=== PATIENT | female | born 1940 | race Caucasian/White ===

== ENCOUNTER 2016-12-09 10:57 | Outpatient (CLI) | payer MEDICARE | END 2016-12-09 10:58 | disposition home or self-care (01) | DX: Z53.9 Procedure and treatment not carried out, unspecified reason (principal); M54.2 Cervicalgia ==

== ENCOUNTER 2016-12-10 15:18 | Outpatient (CLI) | payer MEDICARE, MEDICAID | END 2016-12-10 15:19 | disposition home or self-care (01) | DX: M43.12 Spondylolisthesis, cervical region (principal); M50.920 Unspecified cervical disc disorder, mid-cervical region, unspecified level ==

== ENCOUNTER 2017-03-01 15:50 | Inpatient (IN) | payer MEDICARE, MEDICAID ==
--- NOTE | 2017-03-01 17:25 | ED Physician Documentation ---
PD HPI GI BLEED - Stated complaint Stated Complaint: FEMALE - Chief complaint Chief Complaint: General - History obtained from History obtained from: Patient - History of Present Illness Timing - onset: Today Timing - duration: Days (1/2) Timing - details: Abrupt onset Associated symptoms: BRBPR (with some clots.), Maroon stool, Loss of appetite ( for a couple of days). No: Vomiting, Fever, Near syncope / syncope Contributing factors: Recent antibiotics (Doxycycline the past 5 days for foot infection), Aspirin use. No: Sick contact, Bad food, Travel, Anticoagulated Improved by: No: Eating Worsened by: No: Eating Similar symptoms before: Has not had sx before Recently seen: Clinic (6 days ago and started on Doxycycline BID for foot ulcer infection. She says that is improving some.) Review of Systems Constitutional: denies: Fever, Chills, Myalgias Nose: denies: Rhinorrhea / runny nose, Congestion Throat: denies: Sore throat Cardiac: denies: Chest pain / pressure, Palpitations, Calf pain Respiratory: denies: Dyspnea, Cough, Wheezing GI: reports: Nausea (mild), Bloody / black stool. denies: Abdominal Pain, Vomiting, Constipation : denies: Dysuria, Frequency Skin: reports: Lesions (left foot/ankle sore with some redness) Musculoskeletal: denies: Neck pain, Back pain Neurologic: denies: Generalized weakness, Focal weakness, Numbness, Near syncope PD PAST MEDICAL HISTORY - Past Medical History Cardiovascular: Hypertension, High cholesterol Respiratory: None Neuro: None Endocrine/Autoimmune: None GI: None : None HEENT: None Psych: Anxiety Musculoskeletal: Other Derm: Other - Past Surgical History Past Surgical History: Yes General: Appendectomy HEENT: Tonsil/Adenoidectomy - Present Medications Home Medications: Ambulatory Orders Medication Instructions Recorded Confirmed Atenolol 50 mg PO DAILY 08/22/13 03/01/17 Zolpidem [Ambien] 10 mg PO HS 08/22/13 03/01/17 Aspirin 81 mg PO DAILY 09/14/13 03/01/17 Cholecalciferol (Vitamin D3) 1,000 unit PO DAILY 09/14/13 03/01/17 [Vitamin D] Olmesartan Medoxomil [Benicar] 20 mg PO DAILY 09/14/13 03/01/17 Vitamin B Complex 1 each PO DAILY 09/14/13 03/01/17 cloNIDine [Catapres] 0.1 mg PO DAILY 09/14/13 03/01/17 Amlodipine Besylate 5 mg PO DAILY 08/18/15 03/01/17 Multivitamin [Multivitamins] 1 each PO DAILY 08/18/15 03/01/17 [place]-3/Dha/Epa/Fish Oil [Fish Oil 1,000 mg PO DAILY 03/17/16 03/01/17 Conc 1,000 mg Softgel] Doxycycline Hyclate 100 mg PO BID 03/01/17 03/01/17 - Allergies Allergies/Adverse Reactions: Allergies Allergy/AdvReac Type Severity Reaction Status Date / Time strawberry Allergy Unknown Verified 03/16/16 10:06 venom-honey bee Allergy swelling Verified 08/22/13 22:28 [bee venom (honey bee)] - Social History Does the pt smoke?: No Smoking Status: Never smoker Does the pt drink ETOH?: Yes Does the pt have substance abuse?: No - Family History Family history: reports: Non contributory - Immunizations Immunizations are current?: Yes PD ED PE NORMAL - Vitals Vital signs reviewed: Yes - General General: Alert and oriented X 3, No acute distress, Well developed/nourished - HEENT HEENT: Atraumatic, Pharynx benign - Neck Neck: Supple, no meningeal sign, No JVD - Cardiac Cardiac: RRR, No murmur - Respiratory Respiratory: Clear bilaterally - Abdomen Abdomen: Normal bowel sounds, Soft, Non tender, Non distended, No organomegaly - Female Female : Deferred - Rectal Rectal: Deferred (she had breana dark blood with clots per rectum into toilet, obviating need for digital exam. External rectum without hemorrhoids. ) - Back Back: No CVA TTP - Derm Derm: Normal color, Warm and dry, Other (left ankle with superficial ulcerations with mild redness. ) - Extremities Extremities: No edema, No calf tenderness / cord - Neuro Neuro: Alert and oriented X 3, No motor deficit, Normal speech Results - Vitals Vitals: Vital Signs - 24 hr 03/01/17 03/01/17 15:57 19:18 Temperature 36.0 C L Heart Rate 60 106 H Respiratory 18 18 Rate Blood Pressure 198/91 H 180/79 H O2 Saturation 96 100 Oxygen O2 Source Room air - Labs Labs: Microbiology 03/01/17 18:09 Clostridium difficile (PCR) - Final Stool 03/01/17 18:09 Campylobacter Antigen Assay - Final Stool Laboratory Tests 03/01/17 03/01/17 03/01/17 18:32 18:32 18:32 WBC 7.4 RBC 4.51 Hgb 13.8 Hct 40.6 MCV 90.0 MCH 30.7 MCHC 34.1 RDW 13.1 Plt Count 216 MPV 8.5 Neut # 5.0 Lymph # 1.6 [place] # 0.6 Eos # 0.1 Baso # 0.1 Absolute Nucleated RBC 0.00 Nucleated RBCs 0.0 Sodium 138 Potassium 3.5 Chloride 103 Carbon Dioxide 27 Anion Gap 8.0 BUN 15 Creatinine 0.6 Estimated GFR (MDRD) 97 Glucose 92 Calcium 9.4 Magnesium 1.9 Total Bilirubin 0.3 AST 14 ALT 12 Alkaline Phosphatase 58 Total Protein 7.7 Albumin 3.5 Globulin 4.2 Albumin/Globulin Ratio 0.8 L Lipase 28 Blood Type A POSITIVE Antibody Screen NEGATIVE PD MEDICAL DECISION MAKING - ED course Complexity details: reviewed results, re-evaluated patient (2-3 movements here in ED with about 50-100 ml dark bloody watery stool with some clots. Breana blood. I do not feel she is able to go home with this level of output even though her vitals and blood count are good. ), considered differential, d/w patient, d/w information services consultant (Dr. Feliciano, Surgery, and Dr. Moeller, Hospitalist) Departure - Departure Disposition: 66 [facility] DC/Xfer Clinical Impression: GI bleeding Qualifiers: GI bleed type/associated pathology: unspecified gastrointestinal hemorrhage type Qualified Code(s): K92.2 - Gastrointestinal hemorrhage, unspecified Hypertension Qualifiers: Hypertension type: unspecified secondary hypertension Qualified Code(s): I15.9 - Secondary hypertension, unspecified; I15 - Secondary hypertension Condition: Stable Record reviewed to determine appropriate education?: Yes Discharge Date/Time: 03/01/17 21:10
[2017-03-01] MEDS ORDERED: FAMOTIDINE 20 MG/50 ML 50 ML IV ONE ×2 (17:52→18:47)
[2017-03-01] MEDS ORDERED: SODIUM CHLORIDE 0.9% 1,000 ML IV ONE (17:52)
[2017-03-01 18:43] LABS: BASOPHILS # (AUTO) 0.1 10^3/uL (0.0-0.1); BASOPHILS % (AUTO) 0.8 %; EOSINOPHILS # (AUTO) 0.1 10^3/uL (0.0-0.7); EOSINOPHILS % (AUTO) 1.8 %; HCT - HEMATOCRIT 40.6 % (37.0-47.0); HGB - HEMOGLOBIN 13.8 g/dL (12.0-16.0); LYMPHOCYTES # (AUTO) 1.6 10^3/uL (1.5-3.5); LYMPHOCYTES % (AUTO) 21.7 %; MEAN CORPUSCULAR HEMOGLOBIN 30.7 pg (27.0-31.0); MEAN CORPUSCULAR HGB CONC 34.1 g/dL (32.0-36.0); MEAN PLATELET VOLUME 8.5 fL (7.9-10.8); MONOCYTES # (AUTO) 0.6 10^3/uL (0.0-1.0); MONOCYTES % (AUTO) 8.4 %; NEUTROPHILS % (AUTO) 67.3 %; RED BLOOD COUNT 4.51 10^6/uL (4.20-5.40); RED CELL DISTRIBUTION WIDTH 13.1 % (12.0-15.0); UNCORRECTED WHITE BLOOD COUNT 7.4 x10^3/uL; WHITE BLOOD COUNT 7.4 x10^3/uL (4.8-10.8)
[2017-03-01 18:55] LABS: ALBUMIN/GLOBULIN RATIO 0.8 (1.0-2.2); BILIRUBIN,TOTAL 0.3 mg/dL (0.2-1.0); CALCIUM 9.4 mg/dL (8.5-10.3); CREATININE 0.6 mg/dL (0.4-1.0); MAGNESIUM 1.9 mg/dL (1.7-2.8); POTASSIUM 3.5 mmol/L (3.5-5.0); TOTAL PROTEIN 7.7 g/dL (6.7-8.2)
[2017-03-01] MEDS ORDERED: oxyCODONE 5 MG TABLET PO PRN ×2 (19:50)
[2017-03-01] MEDS ORDERED: PROCHLORPERAZINE 10 MG/2 ML VIAL IVP PRN (19:50)
[2017-03-01] MEDS ORDERED: ACETAMINOPHEN 325 MG TABLET PO PRN (19:50)
[2017-03-01] MEDS ORDERED: ONDANSETRON 4 MG/2 ML VIAL IVP PRN (19:50)
[2017-03-01] MEDS ORDERED: SODIUM CHLORIDE FLUSH 0.9% 10 ML SYRINGE IVP PRN (19:50)
[2017-03-01] MEDS ORDERED: amLODIPine 5 MG TABLET PO SCH (21:00)
[2017-03-01] MEDS ORDERED: OLMESARTAN MEDOXOMIL 20 MG PO SCH (21:00)
--- NOTE | 2017-03-01 21:02 | HISTORY & PHYSICAL EXAMINATION ---
Chief Complaint - Chief Complaint Chief Complaint: bloody stool History of Present Illness - Admitted From Admitted From:: emergency department - History Obtained From Records Reviewed: yes History obtained from: patient Exam Limitations: none - History of Present Illness HPI Comment/Other: Patient is a 76-year-old female with a past medical history significant for hypertension, charcots joint with history of chronic foot ulcers and hypercholesterolemia who presented to the emergency department with a chief complaint of bloody stool. The patient states that she was in her normal state of health until last night when she states that she had to go to the bathroom and states that she had loose stools that was maroon to dark in color with blood clots. The patient states that she's never had any previous GI bleeds. She states that she has not recently been taking any NSAIDs, smoking or drinking excessive alcohol. She denies any fevers or chills. She states that after the initial bloody bowel movement she continued to have loose stools that appeared bloody with clots every 30 minutes to one hour until she came into the emergency department this afternoon. She denies any abdominal pain. She does admit to taking a baby aspirin daily and she states that she started doxycycline about 5 days ago for a foot ulcer. She does admit to being under a lot of stress she states that she is taking care of her ill who has Parkinson's. She states that her daughter and grandchildren just recently moved into their house as her daughter is having marital problems. She states that she 's been having tension in her neck off and on for the last month but has become significantly worse over the last few days. He denies being on any blood thinners. She denies any nausea or vomiting. She denies any recent sick contacts. On presentation to the emergency department the patient was afebrile she was quite hypertensive and was not tachycardic. After arriving in the emergency department the patient had 6-7 bowel movements which were all bloody with dark maroon-appearing stool and clots. This was seen by the emergency room physician who confirmed that it looked to be maroon to bright red with clots. Given that this was a painless GI bleed the most likely diagnosis is diverticular bleed. The patient's hemoglobin was found to be stable at 13.8 patient was not hypotensive but did become slightly tachycardic while in the emergency department. Given the continuous bleeding in the emergency department it was felt best that the patient be placed in observation and have serial hemoglobin checks while being monitored closely. The patient's stool was sent for C. difficile and Campylobacter testing both tests were negative. No CT scan was performed. Review of Systems - Constitutional Constitutional: denies: Fatigue, Fever, Chills, Malaise, Weakness, Poor appetite , Diaphoresis, Night sweats, Weight gain, Weight loss - Eyes Eyes: denies: Pain, Irritation, Amaurosis, Blurred vision, Spots in vision, Field loss, Vision loss, Dipolpia, Corrective lenses, Other - Ears, Nose & Throat Ears, Nose & Throat: denies: Ear pain, Hearing loss, Hearing aids, Tinnitus, Vertigo, Nasal pain, Nasal discharge, Nosebleeds, Nasal obstruction, Nasal congestion, Postnasal drainage, Dentures, Sore throat, Hoarseness, Mouth lesions , Bleeding gums, Dental decay, Dental pain, Other - Cardiovascular Cariovascular: denies: Irregular heart rate, Palpitations, Chest pain, Edema, Lightheadedness, Syncope, Exertional dyspnea, Decr. exercise tolerance, Orthopnea, Other - Respiratory Respiratory: denies: Cough, Sputum production, Wheezing, Snoring, Hemoptysis, Orthopnea, SOB at rest, SOB with exertion, Apnea, Stridor, Pleuritic pain, Other - Gastrointestinal Gastrointestinal: reports: Diarrhea, Rectal bleeding, Bloody stools, Other ( Pressure in lower abdomen). denies: Abdominal pain, Abdominal distention, Constipation, Nausea, Vomiting, Jalen blood emesis, Coffee grounds emesis, Reflux/heartburn, Bloating, Poor appetite - Genitourinary Genitourinary: denies: Dysuria, Frequency, Urgency, Hematuria, Incontinence, Flank pain, Nocturia, Urethral discharge, Sexual dysfunction, Other - Musculoskeletal Musculoskeletal: reports: Stiffness (neck), Limited range of motion (neck), Joint swelling (Left foot) - Integumentary Integumentary: denies: Rash, Pruritis, Lesions, Dryness, Lumps, Acne, Pigment changes, Nail changes, Hair changes, Other - Neurological Neurological: denies: General weakness, Focal weakness, Headache, Dizziness, Numbness, Memory problems, Pre-existing deficit, Abnormal gait, Seizures, Incoordination, Slurred speech, Other - Psychiatric Psychiatric: reports: Anxiety, Other (Stress). denies: Depression, Suicidal, Delusions, Hallucinations - Endocrine Endocrine: denies: Polyuria, Polydypsia, Polyphagia, Intolerance to cold, Intolerance to heat, Other - Hematologic/Lymphatic Hematologic/Lymphatic: reports: Blood clots (With stool). 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 Mom had osteoporosis. Living arrangement: At home Living Situation: With spouse/s.o., With family (Daughter and grandkids) Social History Notes: Patient lives in [place] with . Recently daughter and grandkids have moved in due to daughter going through marital issues. Patient under a lot of stress due to taking care of with parkinsons and family problems. - Substance History Use: Uses substance without health or social issues: Alcohol (1-2 glasses of wine a week with dinner) Abuse: Recurrent use of substance despite neg consequences: NONE Dependence: Experiences withdrawal or developed tolerances: NONE - POLST Patient has POLST: No POLST Status: Full Code Meds/Allgy - Home Medications Home Medications: Ambulatory Orders Medication Instructions Recorded Confirmed Atenolol 50 mg PO DAILY 08/22/13 03/01/17 Zolpidem [Ambien] 10 mg PO HS 08/22/13 03/01/17 Aspirin 81 mg PO DAILY 09/14/13 03/01/17 Cholecalciferol (Vitamin D3) 1,000 unit PO DAILY 09/14/13 03/01/17 [Vitamin D] Olmesartan Medoxomil [Benicar] 20 mg PO DAILY 09/14/13 03/01/17 Vitamin B Complex 1 each PO DAILY 09/14/13 03/01/17 cloNIDine [Catapres] 0.1 mg PO DAILY 09/14/13 03/01/17 Amlodipine Besylate 5 mg PO DAILY 08/18/15 03/01/17 Multivitamin [Multivitamins] 1 each PO DAILY 08/18/15 03/01/17 [place]-3/Dha/Epa/Fish Oil [Fish Oil 1,000 mg PO DAILY 03/17/16 03/01/17 Conc 1,000 mg Softgel] Doxycycline Hyclate 100 mg PO BID 03/01/17 03/01/17 - Allergies Allergies/Adverse Reactions: Allergies Allergy/AdvReac Type Severity Reaction Status Date / Time strawberry Allergy Unknown Verified 03/16/16 10:06 venom-honey bee Allergy swelling Verified 08/22/13 22:28 [bee venom (honey bee)] Exam - Vital Signs Reviewed Vital Signs: Yes Vital Signs: Vital Signs x48h Temp Pulse Resp BP Pulse Ox 03/01/17 19:18 106 H 18 180/79 H 100 03/01/17 15:57 36.0 C L 60 18 198/91 H 96 - Physical Exam General Appearance: positive: No acute distress, Alert, Other (anxious) Eyes Bilateral: positive: Normal inspection, PERRL, EOMI, No lid inflammation, Conjunctivae nml, No scleral icterus ENT: positive: ENT inspection nml, Pharynx nml, Dry mucous membranes. negative : Purulent nasal drainage, Pharyngeal erythema, Oral lesions Neck: positive: Nml inspection, Thyroid nml, No JVD, Trachea midline, Other ( Tapezius muscle with spasms bilaterally and decreased ROM at the neck). negative: Thyromegaly, Lymphadenopathy (R), Lymphadenopathy (L) Respiratory: positive: Chest non-tender, No respiratory distress, Breath sounds nml. negative: Wheezes, Rales, Rhonchi Cardiovascular: positive: Regular rate & rhythm, No murmur, No gallop Peripheral Pulses: positive: 2+ Abdomen: positive: Non-tender, No organomegaly, Nml bowel sounds, No distention. negative: Guarding, Rebound, Hepatomegaly Rectal: positive: Stool - heme POS, Bloody stool Back: positive: Nml inspection. negative: CVA tenderness (R), CVA tenderness (L ) Skin: positive: Color nml, Warm, Dry, Other (Left foot ulcer on plantar aspect - looks to be healing well, no drainage but does have smell). negative: Cyanosis, Pallor Extremities: positive: Non-tender, Full ROM, Nml appearance, Pedal edema, Joint swelling (Left lateral ankle and foot) Neurologic/Psychiatric: positive: Oriented x3, CN's nml (2-12), Motor nml, Sensation nml, Mood/affect nml Conclusion/Plan - Problem List (1) GI bleeding Conclusion/Plan: Patient presented with bloody stools Patient takes baby aspirin at home but no NSAIDs, no alcohol, no tobacco use Stool appears bloody with clots C. difficile PCR negative, stool negative for Campylobacter No fevers no chills No abdominal pain The patient under a lot of stress No history of GI bleed The patient has never had colonoscopy or EGD The patient likely has a lower GI bleed likely to be diverticular bleed, less likely to be a brisk upper GI bleed however we cannot completely rule this out. Plan: Place 2 large-bore IVs Type and screen PRBCs Monitor hemoglobin every 6 hours Monitor vital signs and place on telemetry Transfuse if patient becomes hemodynamically unstable, is actively bleeding with acutely worsening hemoglobin or if hemoglobin is less than 7 Protonix IV twice a day IV fluids Hold aspirin and avoid NSAIDs Consult surgery for EGD and colonoscopy will do tomorrow if patient continues to bleed or next day if bleeding decreases Consider CT if patient begins to have pain. NPO Qualifiers: GI bleed type/associated pathology: unspecified gastrointestinal hemorrhage type Qualified Code(s): K92.2 - Gastrointestinal hemorrhage, unspecified (2) Foot ulcer, left Conclusion/Plan: Patient being treated with doxycycline by mouth as outpatient completed 5 of 7 days of treatment Patient has been having loose stools and not feeling well since starting the antibiotic Doxycycline can cause esophagitis and gastritis, as well as diarrhea Will hold doxycycline and start patient on under myosin while she is hospitalized. The patient's ulcer looks clean and appears to be healing well (3) Hypertension Conclusion/Plan: Blood pressure elevated on presentation The patient receives amlodipine and benicar at night Will give the patient her night doses of antihypertensives Will monitor patient's blood pressure closely she is bleeding we will hold and hypertensives if patient becomes hypotensive. - Lab Results Lab results reviewed: Yes Fish Bones: 03/01/17 18:32 03/01/17 18:32 - Diagnostic Imaging Results Diagnostic Imaging Results: positive: Final report reviewed - EKG Results EKG Interpreted Independently: Yes Issues/Core Measures - Anticipated LOS Anticipated Stay Length: Less than 2 midnights - DVT/VTE - Prophylaxis VTE/DVT Device ordered at admit?: Yes Not Ordered - Medical Reason: Not indicated (the patient bleeding)
[2017-03-01] MEDS: SODIUM CHLORIDE 0.9% 1,000 ML IV SCH ×2 (21:59→23:38)
[2017-03-01] MEDS: LOSARTAN 50 MG TABLET PO SCH (21:59)
[2017-03-01] MEDS: ALPRAZolam 0.25 MG TABLET PO PRN (21:59)
[2017-03-01] MEDS: PANTOPRAZOLE 40 MG VIAL IVP SCH (21:59)
[2017-03-01] MEDS: SODIUM CHLORIDE FLUSH 0.9% 10 ML SYRINGE IVP SCH (21:59)
[2017-03-01 22:44] LABS: BASOPHILS % (AUTO) 0.6 %; EOSINOPHILS # (AUTO) 0.2 10^3/uL (0.0-0.7); EOSINOPHILS % (AUTO) 2.2 %; HCT - HEMATOCRIT 37.8 % (37.0-47.0); HGB - HEMOGLOBIN 12.9 g/dL (12.0-16.0); LYMPHOCYTES % (AUTO) 24.4 %; MEAN CORPUSCULAR HEMOGLOBIN 30.8 pg (27.0-31.0); MEAN CORPUSCULAR HGB CONC 34.2 g/dL (32.0-36.0); MEAN CORPUSCULAR VOLUME 90.1 fL (81.0-99.0); MONOCYTES # (AUTO) 0.6 10^3/uL (0.0-1.0); MONOCYTES % (AUTO) 8.1 %; NEUTROPHILS # (AUTO) 5.2 10^3/uL (1.5-6.6); NEUTROPHILS % (AUTO) 64.7 %; NUCLEATED RED BLOOD CELLS AUTO 0.1 /100WBC; RED CELL DISTRIBUTION WIDTH 12.9 % (12.0-15.0)
[2017-03-01] MEDS: CLINDAMYCIN 150 MG CAPSULE PO SCH (23:43)
[2017-03-02] MEDS: SODIUM CHLORIDE FLUSH 0.9% 10 ML SYRINGE IVP SCH ×3 (03:51→22:09)
[2017-03-02] MEDS: CLINDAMYCIN 150 MG CAPSULE PO SCH ×4 (06:02→23:48)
[2017-03-02 06:27] LABS: BASOPHILS # (AUTO) 0.1 10^3/uL (0.0-0.1); BASOPHILS % (AUTO) 0.9 %; EOSINOPHILS # (AUTO) 0.2 10^3/uL (0.0-0.7); EOSINOPHILS % (AUTO) 2.6 %; HCT - HEMATOCRIT 36.3 % (37.0-47.0); HGB - HEMOGLOBIN 12.4 g/dL (12.0-16.0); LYMPHOCYTES # (AUTO) 1.6 10^3/uL (1.5-3.5); LYMPHOCYTES % (AUTO) 26.4 %; MEAN CORPUSCULAR HEMOGLOBIN 30.6 pg (27.0-31.0); MEAN CORPUSCULAR HGB CONC 34.3 g/dL (32.0-36.0); MEAN CORPUSCULAR VOLUME 89.2 fL (81.0-99.0); MEAN PLATELET VOLUME 8.8 fL (7.9-10.8); MONOCYTES # (AUTO) 0.5 10^3/uL (0.0-1.0); MONOCYTES % (AUTO) 9.1 %; NEUTROPHILS # (AUTO) 3.6 10^3/uL (1.5-6.6); RED BLOOD COUNT 4.06 10^6/uL (4.20-5.40); RED CELL DISTRIBUTION WIDTH 12.7 % (12.0-15.0)
[2017-03-02 06:38] LABS: INR 1.2 (0.8-1.2); PT - PROTHROMBIN TIME 13.1 secs (9.9-12.6)
[2017-03-02 06:54] LABS: ALBUMIN/GLOBULIN RATIO 0.8 (1.0-2.2); BILIRUBIN,TOTAL 0.7 mg/dL (0.2-1.0); CALCIUM 8.6 mg/dL (8.5-10.3); CREATININE 0.5 mg/dL (0.4-1.0); POTASSIUM 3.3 mmol/L (3.5-5.0); TOTAL PROTEIN 6.4 g/dL (6.7-8.2)
[2017-03-02] MEDS ORDERED: cloNIDine 0.1 MG TABLET PO SCH ×2 (07:00→09:00)
[2017-03-02 07:42] LABS: AMYLASE 33 U/L (28-100)
[2017-03-02] MEDS: ATENOLOL 25 MG TABLET PO SCH (08:10)
[2017-03-02] MEDS: MULTIVITAMIN TABLET PO SCH (08:10)
[2017-03-02] MEDS: PANTOPRAZOLE 40 MG VIAL IVP SCH ×2 (08:10→22:09)
[2017-03-02] MEDS: LOSARTAN 50 MG TABLET PO SCH (08:10)
[2017-03-02] MEDS: POTASSIUM CHLORIDE 20 MEQ TABLET PO SCH (08:10)
[2017-03-02] MEDS: CHOLECALCIFEROL 1,000 UNIT TABLET PO SCH (08:10)
[2017-03-02] MEDS: POLYETHYLENE GLYCOL 3350 17 GM PACKET PO SCH (08:11)
[2017-03-02] MEDS ORDERED: LOSARTAN 50 MG TABLET PO SCH (09:00)
[2017-03-02] MEDS ORDERED: NON FORMULARY MED (Multivitamin [Multivitamins] 1 EACH) PO SCH (09:00)
[2017-03-02] MEDS ORDERED: NON FORMULARY MED (Atenolol [Atenolol] 50 MG) PO SCH (09:00)
[2017-03-02] MEDS ORDERED: OLMESARTAN MEDOXOMIL 20 MG PO SCH (09:00)
[2017-03-02] MEDS: SODIUM CHLORIDE 0.9% 1,000 ML IV SCH ×2 (09:20→22:08)
--- NOTE | 2017-03-02 09:55 | PROVIDER PROGRESS NOTE ---
Assessment/Plan - Problem List (1) Acute lower GI bleeding Assessment/Plan: ongoing. patient is going for colonoscopy today. she is on colon prep for scope later today. She has history of hemorrhoids and this could be the cause of the bleeding. hemorrhoids noted on examination but internal need to be accessed. continue to monitor H/H and type and screen completed. hemoglobin stable at this time (2) Hypokalemia due to loss of potassium Assessment/Plan: acute. replace potassium with oral supplement. repeat CMP in morning lab draw (3) Foot ulcer, left Qualifiers: Non-pressure ulcer stage: unspecified non-pressure ulcer stage Qualified Code(s): L97.529 - Non-pressure chronic ulcer of other part of left foot with unspecified severity Assessment/Plan: stable with Charcot of left foot. stable. continue to provide elevation of extremity and monitor for changes in skin integrity.l continue on clindamycin as prescribed. (4) Hypertension Qualifiers: Hypertension type: unspecified secondary hypertension Qualified Code(s): I15.9 - Secondary hypertension, unspecified; I15 - Secondary hypertension Assessment/Plan: stable. continue on home dosage of blood pressure medications. - Current Meds Current Meds: Current Medications Generic Name Dose Route Start Last Admin Trade Name Freq PRN Reason Stop Dose Admin Alprazolam 0.25 mg 03/01/17 21:44 03/01/17 21:59 Xanax PO 0.25 mg Q6HR PRN Administration Anxiety Atenolol 50 mg 03/02/17 09:00 03/02/17 08:10 Tenormin PO 50 mg DAILY LENKA Administration Cholecalciferol 1,000 unit 03/02/17 09:00 03/02/17 08:10 Vitamin D3 PO 1,000 unit DAILY LENKA Administration Clindamycin HCl 300 mg 03/02/17 00:00 03/02/17 06:02 Cleocin PO 300 mg Q6HR LENKA Administration Sodium Chloride 1,000 mls @ 100 mls/hr 03/01/17 20:00 03/02/17 09:20 Normal Saline 0.9% IV 100 mls/hr .Q10H LENKA Administration Losartan Potassium 50 mg 03/01/17 21:50 03/02/17 08:10 Cozaar PO 50 mg DAILY LENKA Administration Multivitamins 1 tab 03/02/17 08:00 03/02/17 08:10 Theragran PO 1 tab DAILYWM LENKA Administration Pantoprazole Sodium 40 mg 03/01/17 21:00 03/02/17 08:10 Protonix IVP 40 mg BID LENKA Administration Polyethylene Glycol 17 gm 03/02/17 09:00 03/02/17 08:11 Miralax PO Not Given DAILY LENKA Potassium Chloride 20 meq 03/02/17 08:00 03/02/17 08:10 K-Dur PO 20 meq DAILYWM LENKA Administration Sodium Chloride 10 ml 03/01/17 22:00 03/02/17 03:51 Normal Saline Flush 0.9% IVP Not Given Q8HR LENKA - Lab Result Lab results reviewed: Yes Fish Bone Diagrams: 03/02/17 11:12 03/02/17 05:52 Other Lab Results: Abnormal Lab Results 03/01/17 03/02/17 03/02/17 18:32 05:45 05:52 RBC 4.06 10^6/uL L 10^6/uL (4.20-5.40) Hct 36.3 % L % (37.0-47.0) PT Potassium 3.3 mmol/L L mmol/L (3.5-5.0) Total Protein 6.4 g/dL L g/dL (6.7-8.2) Albumin 2.8 g/dL L g/dL (3.2-5.5) Albumin/Globulin Ratio 0.8 L 0.8 L (1.0-2.2) (1.0-2.2) 03/02/17 06:07 RBC Hct PT 13.1 secs H secs (9.9-12.6) Potassium Total Protein Albumin Albumin/Globulin Ratio - EKG Results EKG Interpreted Independently: No - Diagnostic Imaging Results Diagnostic Imaging Results Comments: Pending colonoscopy this evening - Additional Planning Condition/Complexity: Stable My Orders: My Active Orders 03/02/17 08:00 Potassium Chloride [K-Dur] 20 meq PO DAILYWM 03/02/17 09:24 EKG - Electrocardiogram [RC] Routine 03/02/17 10:00 Sodium/Potassium/Mag Sulfates [Suprep Bowel Prep Kit] 177 ml PO Q5H 03/03/17 05:00 MAGNESIUM [CHEM] DAILYLAB Consult/Specialty: OT, PT, Surgery Plan Discussed with:: Patient Time Spent: 31-60 minutes Subjective - Subjective Patient Reports: Resting Comfortably, No Complaints Nursing Reports: No Complaints (no new bleeding this morning.) Objective Vital Signs: Vital Signs - 24 hr 03/01/17 03/01/17 03/01/17 20:58 21:27 23:34 Temperature 36.7 C 36.5 C 36.6 C Heart Rate 76 Heart Rate [ 63 60 Brachial] Respiratory 18 18 17 Rate Blood Pressure 218/88 H Blood Pressure 199/106 H 162/79 H [Left Brachial artery] O2 Saturation 98 99 98 03/02/17 03/02/17 03:55 09:18 Temperature 36.7 C 36.6 C Heart Rate Heart Rate [ 63 60 Brachial] Respiratory 18 18 Rate Blood Pressure Blood Pressure 169/79 H 125/72 [Left Brachial artery] O2 Saturation 96 97 Oxygen O2 Source Room air I&O (Last 24 Hrs): Intake and Output Totals x24h 02/28/17 03/01/17 03/02/17 23:59 23:59 23:59 Intake Total 600 1132 Output Total 250 800 Balance 350 332 General: Alert, Oriented x3, Cooperative HEENT: PERRLA Neck: Supple, No JVD Lymphatic: no adenopathy Neuro: Alert, CN 2-12 Grossly Intact, Oriented Times 3 Cardiovascular: Regular rate, Normal S1, Normal S2 Respiratory: Chest non-tender, No respiratory distress, Breath sounds nml Abdomen: Normal bowel sounds, Soft, No tenderness, No masses Genitourinary: No Discharge, No Tenderness Rectal: Stool - Heme POS Extremities: No clubbing, No cyanosis, No edema, Normal pulses, No tenderness/ swelling Skin: No rashes, No breakdown, No significant lesion - Results Results: Laboratory Results WBC 6.0 x10^3/uL (4.8-10.8) 03/02/17 05:45 RBC 4.06 10^6/uL (4.20-5.40) L 03/02/17 05:45 Hgb 12.4 g/dL (12.0-16.0) 03/02/17 05:45 Hct 36.3 % (37.0-47.0) L 03/02/17 05:45 MCV 89.2 fL (81.0-99.0) 03/02/17 05:45 MCH 30.6 pg (27.0-31.0) 03/02/17 05:45 MCHC 34.3 g/dL (32.0-36.0) 03/02/17 05:45 RDW 12.7 % (12.0-15.0) 03/02/17 05:45 Plt Count 183 10^3/uL (130-450) 03/02/17 05:45 MPV 8.8 fL (7.9-10.8) 03/02/17 05:45 Neut # 3.6 10^3/uL (1.5-6.6) 03/02/17 05:45 Lymph # 1.6 10^3/uL (1.5-3.5) 03/02/17 05:45 [place] # 0.5 10^3/uL (0.0-1.0) 03/02/17 05:45 Eos # 0.2 10^3/uL (0.0-0.7) 03/02/17 05:45 Baso # 0.1 10^3/uL (0.0-0.1) 03/02/17 05:45 Absolute Nucleated RBC 0.00 x10^3/uL 03/02/17 05:45 Nucleated RBCs 0.0 /100WBC 03/02/17 05:45 PT 13.1 secs (9.9-12.6) H 03/02/17 06:07 INR 1.2 (0.8-1.2) 03/02/17 06:07 Sodium 138 mmol/L (135-145) 03/02/17 05:52 Potassium 3.3 mmol/L (3.5-5.0) L 03/02/17 05:52 Chloride 108 mmol/L (101-111) 03/02/17 05:52 Carbon Dioxide 24 mmol/L (21-32) 03/02/17 05:52 Anion Gap 6.0 (6-13) 03/02/17 05:52 BUN 10 mg/dL (6-20) 03/02/17 05:52 Creatinine 0.5 mg/dL (0.4-1.0) 03/02/17 05:52 Estimated GFR (MDRD) 119 (>89) 03/02/17 05:52 Glucose 100 mg/dL (70-100) 03/02/17 05:52 Calcium 8.6 mg/dL (8.5-10.3) 03/02/17 05:52 Magnesium 1.8 mg/dL (1.7-2.8) 03/02/17 06:07 Total Bilirubin 0.7 mg/dL (0.2-1.0) 03/02/17 05:52 AST 13 IU/L (10-42) 03/02/17 05:52 ALT 11 IU/L (10-60) 03/02/17 05:52 Alkaline Phosphatase 46 IU/L (42-121) 03/02/17 05:52 C-Reactive Protein < 1.0 mg/dL (0-1.0) 03/02/17 06:07 Total Protein 6.4 g/dL (6.7-8.2) L 03/02/17 05:52 Albumin 2.8 g/dL (3.2-5.5) L 03/02/17 05:52 Globulin 3.6 g/dL (2.1-4.2) 03/02/17 05:52 Albumin/Globulin Ratio 0.8 (1.0-2.2) L 03/02/17 05:52 Amylase 33 U/L (28-100) 03/02/17 06:07 Lipase 28 U/L (22-51) 03/01/17 18:32 Blood Type A POSITIVE 03/01/17 18:32 Antibody Screen NEGATIVE 03/01/17 18:32 - Procedures Procedures: Patient was started on bowel prep for colonoscopy this evening with Dr Givens. She has had no breana red blood this morning.
[2017-03-02] MEDS: SODIUM/POTASSIUM/MAG SULFATES 354 ML PREP KIT PO SCH ×2 (09:58→14:33)
--- NOTE | 2017-03-02 10:01 | PROVIDER PROGRESS NOTE ---
Assessment/Plan - Problem List (1) GI bleeding Qualifiers: GI bleed type/associated pathology: unspecified gastrointestinal hemorrhage type Qualified Code(s): K92.2 - Gastrointestinal hemorrhage, unspecified Assessment/Plan: 76 yo female with GI bleed plan for colonoscopy and EGD today.Colon prep begun - Current Meds Current Meds: Current Medications Generic Name Dose Route Start Last Admin Trade Name Freq PRN Reason Stop Dose Admin Alprazolam 0.25 mg 03/01/17 21:44 03/01/17 21:59 Xanax PO 0.25 mg Q6HR PRN Administration Anxiety Atenolol 50 mg 03/02/17 09:00 03/02/17 08:10 Tenormin PO 50 mg DAILY LENKA Administration Cholecalciferol 1,000 unit 03/02/17 09:00 03/02/17 08:10 Vitamin D3 PO 1,000 unit DAILY LENKA Administration Clindamycin HCl 300 mg 03/02/17 00:00 03/02/17 06:02 Cleocin PO 300 mg Q6HR LENKA Administration Sodium Chloride 1,000 mls @ 100 mls/hr 03/01/17 20:00 03/02/17 09:20 Normal Saline 0.9% IV 100 mls/hr .Q10H LENKA Administration Losartan Potassium 50 mg 03/01/17 21:50 03/02/17 08:10 Cozaar PO 50 mg DAILY LENKA Administration Multivitamins 1 tab 03/02/17 08:00 03/02/17 08:10 Theragran PO 1 tab DAILYWM LENKA Administration Pantoprazole Sodium 40 mg 03/01/17 21:00 03/02/17 08:10 Protonix IVP 40 mg BID LENKA Administration Polyethylene Glycol 17 gm 03/02/17 09:00 03/02/17 08:11 Miralax PO Not Given DAILY LENKA Potassium Chloride 20 meq 03/02/17 08:00 03/02/17 08:10 K-Dur PO 20 meq DAILYWM LENKA Administration Sodium Chloride 10 ml 03/01/17 22:00 03/02/17 03:51 Normal Saline Flush 0.9% IVP Not Given Q8HR LNEKA Sodium Sulfate/Potass Sulf/Mag Sulf 177 ml 03/02/17 10:00 03/02/17 09:58 Suprep Bowel Prep Kit PO 03/02/17 15:01 177 ml Q5H LENKA Administration - Lab Result Fish Bone Diagrams: 03/02/17 05:45 03/02/17 05:52 Subjective - Subjective Patient Reports: Other (Contiues to pass clots in stool) Nursing Reports: No Complaints Objective Vital Signs: Vital Signs - 24 hr 03/01/17 03/01/17 03/01/17 20:58 21:27 23:34 Temperature 36.7 C 36.5 C 36.6 C Heart Rate 76 Heart Rate [ 63 60 Brachial] Respiratory 18 18 17 Rate Blood Pressure 218/88 H Blood Pressure 199/106 H 162/79 H [Left Brachial artery] O2 Saturation 98 99 98 03/02/17 03/02/17 03:55 09:18 Temperature 36.7 C 36.6 C Heart Rate Heart Rate [ 63 60 Brachial] Respiratory 18 18 Rate Blood Pressure Blood Pressure 169/79 H 125/72 [Left Brachial artery] O2 Saturation 96 97 Oxygen O2 Source Room air I&O (Last 24 Hrs): Intake and Output Totals x24h 02/28/17 03/01/17 03/02/17 23:59 23:59 23:59 Intake Total 600 1132 Output Total 250 800 Balance 350 332 General: Oriented x3 Neck: No JVD Cardiovascular: Regular rate Respiratory: Chest non-tender Abdomen: Normal bowel sounds, Soft, No tenderness - Results Results: Laboratory Results WBC 6.0 x10^3/uL (4.8-10.8) 03/02/17 05:45 RBC 4.06 10^6/uL (4.20-5.40) L 03/02/17 05:45 Hgb 12.4 g/dL (12.0-16.0) 03/02/17 05:45 Hct 36.3 % (37.0-47.0) L 03/02/17 05:45 MCV 89.2 fL (81.0-99.0) 03/02/17 05:45 MCH 30.6 pg (27.0-31.0) 03/02/17 05:45 MCHC 34.3 g/dL (32.0-36.0) 03/02/17 05:45 RDW 12.7 % (12.0-15.0) 03/02/17 05:45 Plt Count 183 10^3/uL (130-450) 03/02/17 05:45 MPV 8.8 fL (7.9-10.8) 03/02/17 05:45 Neut # 3.6 10^3/uL (1.5-6.6) 03/02/17 05:45 Lymph # 1.6 10^3/uL (1.5-3.5) 03/02/17 05:45 [place] # 0.5 10^3/uL (0.0-1.0) 03/02/17 05:45 Eos # 0.2 10^3/uL (0.0-0.7) 03/02/17 05:45 Baso # 0.1 10^3/uL (0.0-0.1) 03/02/17 05:45 Absolute Nucleated RBC 0.00 x10^3/uL 03/02/17 05:45 Nucleated RBCs 0.0 /100WBC 03/02/17 05:45 PT 13.1 secs (9.9-12.6) H 03/02/17 06:07 INR 1.2 (0.8-1.2) 03/02/17 06:07 Sodium 138 mmol/L (135-145) 03/02/17 05:52 Potassium 3.3 mmol/L (3.5-5.0) L 03/02/17 05:52 Chloride 108 mmol/L (101-111) 03/02/17 05:52 Carbon Dioxide 24 mmol/L (21-32) 03/02/17 05:52 Anion Gap 6.0 (6-13) 03/02/17 05:52 BUN 10 mg/dL (6-20) 03/02/17 05:52 Creatinine 0.5 mg/dL (0.4-1.0) 03/02/17 05:52 Estimated GFR (MDRD) 119 (>89) 03/02/17 05:52 Glucose 100 mg/dL (70-100) 03/02/17 05:52 Calcium 8.6 mg/dL (8.5-10.3) 03/02/17 05:52 Magnesium 1.8 mg/dL (1.7-2.8) 03/02/17 06:07 Total Bilirubin 0.7 mg/dL (0.2-1.0) 03/02/17 05:52 AST 13 IU/L (10-42) 03/02/17 05:52 ALT 11 IU/L (10-60) 03/02/17 05:52 Alkaline Phosphatase 46 IU/L (42-121) 03/02/17 05:52 C-Reactive Protein < 1.0 mg/dL (0-1.0) 03/02/17 06:07 Total Protein 6.4 g/dL (6.7-8.2) L 03/02/17 05:52 Albumin 2.8 g/dL (3.2-5.5) L 03/02/17 05:52 Globulin 3.6 g/dL (2.1-4.2) 03/02/17 05:52 Albumin/Globulin Ratio 0.8 (1.0-2.2) L 03/02/17 05:52 Amylase 33 U/L (28-100) 03/02/17 06:07 Lipase 28 U/L (22-51) 03/01/17 18:32 Blood Type A POSITIVE 03/01/17 18:32 Antibody Screen NEGATIVE 03/01/17 18:32
[2017-03-02 11:19] LABS: BASOPHILS # (AUTO) 0.1 10^3/uL (0.0-0.1); BASOPHILS % (AUTO) 1.1 %; EOSINOPHILS # (AUTO) 0.2 10^3/uL (0.0-0.7); EOSINOPHILS % (AUTO) 2.5 %; HGB - HEMOGLOBIN 13.3 g/dL (12.0-16.0); LYMPHOCYTES # (AUTO) 1.8 10^3/uL (1.5-3.5); LYMPHOCYTES % (AUTO) 24.2 %; MEAN CORPUSCULAR HGB CONC 34.2 g/dL (32.0-36.0); MEAN CORPUSCULAR VOLUME 90.7 fL (81.0-99.0); MEAN PLATELET VOLUME 8.9 fL (7.9-10.8); MONOCYTES # (AUTO) 0.5 10^3/uL (0.0-1.0); MONOCYTES % (AUTO) 7.3 %; NEUTROPHILS # (AUTO) 4.7 10^3/uL (1.5-6.6); NEUTROPHILS % (AUTO) 64.9 %; UNCORRECTED WHITE BLOOD COUNT 7.3 x10^3/uL; WHITE BLOOD COUNT 7.3 x10^3/uL (4.8-10.8)
[2017-03-02] MEDS ORDERED: MAGNESIUM SULFATE 2 GRAM 50 ML IV ONE (12:00)
[2017-03-02 17:13] LABS: BASOPHILS # (AUTO) 0.1 10^3/uL (0.0-0.1); BASOPHILS % (AUTO) 0.8 %; EOSINOPHILS # (AUTO) 0.1 10^3/uL (0.0-0.7); EOSINOPHILS % (AUTO) 1.6 %; HCT - HEMATOCRIT 38.5 % (37.0-47.0); LYMPHOCYTES # (AUTO) 1.6 10^3/uL (1.5-3.5); LYMPHOCYTES % (AUTO) 20.9 %; MEAN CORPUSCULAR HEMOGLOBIN 30.8 pg (27.0-31.0); MEAN CORPUSCULAR HGB CONC 33.7 g/dL (32.0-36.0); MEAN CORPUSCULAR VOLUME 91.3 fL (81.0-99.0); MONOCYTES # (AUTO) 0.6 10^3/uL (0.0-1.0); MONOCYTES % (AUTO) 7.8 %; NEUTROPHILS # (AUTO) 5.2 10^3/uL (1.5-6.6); NEUTROPHILS % (AUTO) 68.9 %; RED BLOOD COUNT 4.22 10^6/uL (4.20-5.40); RED CELL DISTRIBUTION WIDTH 12.8 % (12.0-15.0); UNCORRECTED WHITE BLOOD COUNT 7.5 x10^3/uL; WHITE BLOOD COUNT 7.5 x10^3/uL (4.8-10.8)
[2017-03-02] MEDS ORDERED: LACTATED RINGERS 1,000 ML IV ONE (17:54)
[2017-03-02] MEDS ORDERED: LIDOCAINE-MPF 2% 5 ML VIAL IM ONE (18:00)
[2017-03-02] MEDS ORDERED: MIDAZOLAM 2 MG/2 ML VIAL IVP ONE (18:00)
[2017-03-02] MEDS ORDERED: PROPOFOL 200 MG/20 ML VIAL IVP ONE (18:00)
[2017-03-02] MEDS ORDERED: LIDO GARGLE 30 ML BOTTLE TOP ONE (18:01)
[2017-03-02] MEDS ORDERED: BENZOCAINE/TETRACAINE/BUTAMBEN SPRAY 56 GM TOP ONE (18:01)
[2017-03-02] MEDS ORDERED: EPINEPHrine ABBOJECT 1 MG/10 ML SYRINGE IVP ONE ×4 (18:09)
[2017-03-02] MEDS ORDERED: ONDANSETRON 4 MG/2 ML VIAL ONE (20:07)
[2017-03-02] MEDS ORDERED: hydrALAZINE INJ 20 MG/ML VIAL IVP SCH (22:00)
[2017-03-02] MEDS: amLODIPine 5 MG TABLET PO SCH (22:09)
[2017-03-02] MEDS: SUCRALFATE 1 GM/10 ML UDC PO SCH (22:09)
[2017-03-02 23:29] LABS: BASOPHILS % (AUTO) 0.5 %; EOSINOPHILS # (AUTO) 0.1 10^3/uL (0.0-0.7); EOSINOPHILS % (AUTO) 0.6 %; HCT - HEMATOCRIT 35.5 % (37.0-47.0); HGB - HEMOGLOBIN 11.7 g/dL (12.0-16.0); LYMPHOCYTES # (AUTO) 1.3 10^3/uL (1.5-3.5); LYMPHOCYTES % (AUTO) 15.7 %; MEAN CORPUSCULAR HEMOGLOBIN 30.1 pg (27.0-31.0); MEAN CORPUSCULAR HGB CONC 32.9 g/dL (32.0-36.0); MEAN CORPUSCULAR VOLUME 91.3 fL (81.0-99.0); MEAN PLATELET VOLUME 8.9 fL (7.9-10.8); MONOCYTES # (AUTO) 0.4 10^3/uL (0.0-1.0); NEUTROPHILS # (AUTO) 6.2 10^3/uL (1.5-6.6); NEUTROPHILS % (AUTO) 78.2 %; RED BLOOD COUNT 3.89 10^6/uL (4.20-5.40); RED CELL DISTRIBUTION WIDTH 12.7 % (12.0-15.0)
[2017-03-02] MEDS: ZOLPIDEM 5 MG TABLET PO PRN (23:48)
[2017-03-03] MEDS: SODIUM CHLORIDE FLUSH 0.9% 10 ML SYRINGE IVP SCH ×3 (04:27→20:04)
[2017-03-03 06:12] LABS: BASOPHILS % (AUTO) 0.7 %; EOSINOPHILS # (AUTO) 0.1 10^3/uL (0.0-0.7); EOSINOPHILS % (AUTO) 1.2 %; HCT - HEMATOCRIT 33.4 % (37.0-47.0); HGB - HEMOGLOBIN 11.2 g/dL (12.0-16.0); LYMPHOCYTES # (AUTO) 1.4 10^3/uL (1.5-3.5); LYMPHOCYTES % (AUTO) 20.5 %; MEAN CORPUSCULAR HEMOGLOBIN 30.6 pg (27.0-31.0); MEAN CORPUSCULAR HGB CONC 33.4 g/dL (32.0-36.0); MEAN CORPUSCULAR VOLUME 91.6 fL (81.0-99.0); MEAN PLATELET VOLUME 9.1 fL (7.9-10.8); MONOCYTES # (AUTO) 0.5 10^3/uL (0.0-1.0); MONOCYTES % (AUTO) 7.7 %; NEUTROPHILS # (AUTO) 4.8 10^3/uL (1.5-6.6); NEUTROPHILS % (AUTO) 69.9 %; NUCLEATED RED BLOOD CELLS AUTO 0.1 /100WBC; RED BLOOD COUNT 3.65 10^6/uL (4.20-5.40); UNCORRECTED WHITE BLOOD COUNT 6.9 x10^3/uL; WHITE BLOOD COUNT 6.9 x10^3/uL (4.8-10.8)
[2017-03-03 06:17] LABS: INR 1.2 (0.8-1.2); PT - PROTHROMBIN TIME 13.5 secs (9.9-12.6)
[2017-03-03 06:22] LABS: ALBUMIN/GLOBULIN RATIO 0.8 (1.0-2.2); BILIRUBIN,TOTAL 0.9 mg/dL (0.2-1.0); CALCIUM 8.2 mg/dL (8.5-10.3); CREATININE 0.6 mg/dL (0.4-1.0); POTASSIUM 3.2 mmol/L (3.5-5.0)
[2017-03-03] MEDS: SUCRALFATE 1 GM/10 ML UDC PO SCH ×4 (06:54→21:08)
[2017-03-03] MEDS: CLINDAMYCIN 150 MG CAPSULE PO SCH ×3 (06:54→17:58)
[2017-03-03] MEDS: SODIUM CHLORIDE 0.9% 1,000 ML IV SCH ×2 (07:36→21:08)
[2017-03-03] MEDS ORDERED: POTASSIUM CHLORIDE INJ 40 MEQ in SODIUM CHLORIDE 0.9% 480 ML IV ONE (08:12)
[2017-03-03] MEDS: MULTIVITAMIN TABLET PO SCH (10:13)
[2017-03-03] MEDS: ATENOLOL 25 MG TABLET PO SCH (10:14)
[2017-03-03] MEDS: CHOLECALCIFEROL 1,000 UNIT TABLET PO SCH (10:14)
[2017-03-03] MEDS: POTASSIUM CHLORIDE 20 MEQ TABLET PO SCH (10:14)
[2017-03-03] MEDS: POLYETHYLENE GLYCOL 3350 17 GM PACKET PO SCH (10:15)
[2017-03-03] MEDS: LOSARTAN 50 MG TABLET PO SCH (10:15)
[2017-03-03] MEDS: PANTOPRAZOLE 40 MG VIAL IVP SCH ×2 (10:15→20:51)
--- NOTE | 2017-03-03 10:19 | PROVIDER PROGRESS NOTE ---
Assessment/Plan - Problem List (1) Acute lower GI bleeding Assessment/Plan: ongoing. patient underwent a EGD and colonoscopy yesterday with Dr Givens. 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 Patient to remain NPO and surgical intervention pending to remove mass in colon. continue with pain medication as needed and Protonix 40mg IV BID (2) Hypokalemia due to loss of potassium Assessment/Plan: ongoing. continue with IV potassium 40meq and on telemetry. monitor electrolytes with daily lab draw. (3) Foot ulcer, left Qualifiers: Non-pressure ulcer stage: unspecified non-pressure ulcer stage Qualified Code(s): L97.529 - Non-pressure chronic ulcer of other part of left foot with unspecified severity (4) Hypertension Qualifiers: Hypertension type: unspecified secondary hypertension Qualified Code(s): I15.9 - Secondary hypertension, unspecified; I15 - Secondary hypertension Assessment/Plan: stable. continue on cozaar home medication and telemetry (5) Thrush of mouth and esophagus Assessment/Plan: acute. Nystatin oral for thrush in mouth and esophagus. - Current Meds Current Meds: Current Medications Generic Name Dose Route Start Last Admin Trade Name Freq PRN Reason Stop Dose Admin Alprazolam 0.25 mg 03/01/17 21:44 03/01/17 21:59 Xanax PO 0.25 mg Q6HR PRN Administration Anxiety Amlodipine Besylate 5 mg 03/02/17 21:00 03/02/17 22:09 Norvasc PO 5 mg QPM LENKA Administration Atenolol 50 mg 03/02/17 09:00 03/02/17 08:10 Tenormin PO 50 mg DAILY LENKA Administration Cholecalciferol 1,000 unit 03/02/17 09:00 03/02/17 08:10 Vitamin D3 PO 1,000 unit DAILY LENKA Administration Clindamycin HCl 300 mg 03/02/17 00:00 03/03/17 06:54 Cleocin PO 300 mg Q6HR LENKA Administration Sodium Chloride 1,000 mls @ 100 mls/hr 03/01/17 20:00 03/03/17 07:36 Normal Saline 0.9% IV 100 mls/hr .Q10H LENKA Administration Potassium Chloride 40 meq/ 500 mls @ 125 mls/hr 03/03/17 08:12 03/03/17 09:46 Sodium Chloride IV 03/03/17 12:11 125 mls/hr ONCE ONE Administration Losartan Potassium 50 mg 03/01/17 21:50 03/02/17 08:10 Cozaar PO 50 mg DAILY LENKA Administration Multivitamins 1 tab 03/02/17 08:00 03/02/17 08:10 Theragran PO 1 tab DAILYWM LENKA Administration Pantoprazole Sodium 40 mg 03/01/17 21:00 03/02/17 22:09 Protonix IVP 40 mg BID LENKA Administration Polyethylene Glycol 17 gm 03/02/17 09:00 03/02/17 08:11 Miralax PO Not Given DAILY LENKA Potassium Chloride 20 meq 03/02/17 08:00 03/02/17 08:10 K-Dur PO 20 meq DAILYWM LENKA Administration Sodium Chloride 10 ml 03/01/17 22:00 03/03/17 04:27 Normal Saline Flush 0.9% IVP Not Given Q8HR LENKA Sucralfate 1 gm 03/02/17 22:00 03/03/17 06:54 Carafate PO 1 gm 0700,1100,1600,2200 LENKA Administration Zolpidem Tartrate 5 mg 03/01/17 19:50 03/02/17 23:48 Ambien PO 5 mg QPM PRN Administration Insomnia - Lab Result Lab results reviewed: Yes Fish Bone Diagrams: 03/03/17 05:28 03/03/17 05:28 Other Lab Results: Abnormal Lab Results 03/01/17 03/02/17 03/02/17 18:32 05:45 05:52 RBC 4.06 10^6/uL L 10^6/uL (4.20-5.40) Hgb Hct 36.3 % L % (37.0-47.0) Lymph # PT Potassium 3.3 mmol/L L mmol/L (3.5-5.0) Carbon Dioxide Calcium Total Protein 6.4 g/dL L g/dL (6.7-8.2) Albumin 2.8 g/dL L g/dL (3.2-5.5) Albumin/Globulin Ratio 0.8 L 0.8 L (1.0-2.2) (1.0-2.2) 03/02/17 03/02/1703/03/17 06:07 23:16 05:28 RBC 3.89 10^6/uL L 10^6/uL 3.65 10^6/uL L 10^6/uL (4.20-5.40) (4.20-5.40) Hgb 11.7 g/dL L g/dL 11.2 g/dL L g/dL (12.0-16.0) (12.0-16.0) Hct 35.5 % L % 33.4 % L % (37.0-47.0) (37.0-47.0) Lymph # 1.3 10^3/uL L 10^3/uL 1.4 10^3/uL L 10^3/uL (1.5-3.5) (1.5-3.5) PT 13.1 secs H secs (9.9-12.6) Potassium Carbon Dioxide Calcium Total Protein Albumin Albumin/Globulin Ratio 03/03/17 03/03/17 05:28 05:28 RBC Hgb Hct Lymph # PT 13.5 secs H secs (9.9-12.6) Potassium 3.2 mmol/L L mmol/L (3.5-5.0) Carbon Dioxide 20 mmol/L L mmol/L (21-32) Calcium 8.2 mg/dL L mg/dL (8.5-10.3) Total Protein 6.0 g/dL L g/dL (6.7-8.2) Albumin 2.7 g/dL L g/dL (3.2-5.5) Albumin/Globulin Ratio 0.8 L (1.0-2.2) - EKG Results EKG Interpreted Independently: No - Diagnostic Imaging Results Diagnostic Imaging Results: positive: Final report reviewed, Critical result, See rad report Diagnostic Imaging Results Comments: CT of abdomen and Pelvis: 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 8mm minimally hypervascular nodule in the anterior left lobe of liver. colonic diverticulosis. - Additional Planning Condition/Complexity: Stable My Orders: My Active Orders 03/03/17 08:12 Potassium Chloride Inj 40 meq Sodium Chloride 0.9% [Normal Saline 0.9%] 480 ml IV ONCE 03/03/17 10:06 Abdomen/Pelvis W/ [CT] Stat 03/03/17 11:00 Nystatin [Mycostatin] 5 ml PO QID Consult/Specialty: OT, PT (Patient is still having some bleeding from the rectum. waiting for evaluation with surgery for scheduling of surgery. Patient is at least another 48 hours stay. She is high risk and requiring IV medication with high risk for toxicity. code status addressed at beside.), Surgery Plan Discussed with:: Patient, Family, Case Management Time Spent: 31-60 minutes Objective Vital Signs: Vital Signs - 24 hr 03/02/17 03/02/17 03/02/17 16:55 20:00 20:05 Temperature 36.3 C L Heart Rate [ 58 L Brachial] Respiratory 18 Rate Blood Pressure 129/67 [Left Brachial artery] Blood Pressure [Right Brachial artery] O2 Saturation 99 96 96 03/02/17 03/02/17 03/02/17 20:10 20:15 20:20 Temperature Heart Rate [ Brachial] Respiratory Rate Blood Pressure [Left Brachial artery] Blood Pressure [Right Brachial artery] O2 Saturation 97 99 98 03/02/17 03/02/17 03/02/17 20:25 20:31 20:40 Temperature 36.4 C L Heart Rate [ 64 Brachial] Respiratory 16 Rate Blood Pressure [Left Brachial artery] Blood Pressure 179/77 H [Right Brachial artery] O2 Saturation 96 98 97 03/02/17 03/02/17 03/02/17 21:15 21:45 22:49 Temperature 36.4 C L 36.2 C L 35.9 C L Heart Rate [ 60 63 66 Brachial] Respiratory 20 16 20 Rate Blood Pressure [Left Brachial artery] Blood Pressure 182/73 H 169/76 H 146/85 H [Right Brachial artery] O2 Saturation 95 99 98 03/02/17 03/03/17 03/03/17 23:49 04:48 08:43 Temperature 36.5 C 37.0 C 36.5 C Heart Rate [ 68 66 64 Brachial] Respiratory 18 16 16 Rate Blood Pressure [Left Brachial artery] Blood Pressure 136/76 H 134/69 H 159/75 H [Right Brachial artery] O2 Saturation 97 95 94 Oxygen O2 Source Room air I&O (Last 24 Hrs): Intake and Output Totals x24h 03/01/17 03/02/17 03/03/17 23:59 23:59 23:59 Intake Total 1204 1264 Balance 1204 1264 - Results Results: Laboratory Results WBC 6.9 x10^3/uL (4.8-10.8) 03/03/17 05:28 RBC 3.65 10^6/uL (4.20-5.40) L 03/03/17 05:28 Hgb 11.2 g/dL (12.0-16.0) L 03/03/17 05:28 Hct 33.4 % (37.0-47.0) L 03/03/17 05:28 MCV 91.6 fL (81.0-99.0) 03/03/17 05:28 MCH 30.6 pg (27.0-31.0) 03/03/17 05:28 MCHC 33.4 g/dL (32.0-36.0) 03/03/17 05:28 RDW 13.0 % (12.0-15.0) 03/03/17 05:28 Plt Count 186 10^3/uL (130-450) 03/03/17 05:28 MPV 9.1 fL (7.9-10.8) 03/03/17 05:28 Neut # 4.8 10^3/uL (1.5-6.6) 03/03/17 05:28 Lymph # 1.4 10^3/uL (1.5-3.5) L 03/03/17 05:28 [place] # 0.5 10^3/uL (0.0-1.0) 03/03/17 05:28 Eos # 0.1 10^3/uL (0.0-0.7) 03/03/17 05:28 Baso # 0.0 10^3/uL (0.0-0.1) 03/03/17 05:28 Absolute Nucleated RBC 0.00 x10^3/uL 03/03/17 05:28 Nucleated RBCs 0.1 /100WBC 03/03/17 05:28 PT 13.5 secs (9.9-12.6) H 03/03/17 05:28 INR 1.2 (0.8-1.2) 03/03/17 05:28 Sodium 141 mmol/L (135-145) 03/03/17 05:28 Potassium 3.2 mmol/L (3.5-5.0) L 03/03/17 05:28 Chloride 111 mmol/L (101-111) 03/03/17 05:28 Carbon Dioxide 20 mmol/L (21-32) L 03/03/17 05:28 Anion Gap 10.0 (6-13) 03/03/17 05:28 BUN 12 mg/dL (6-20) 03/03/17 05:28 Creatinine 0.6 mg/dL (0.4-1.0) 03/03/17 05:28 Estimated GFR (MDRD) 97 (>89) 03/03/17 05:28 Glucose 76 mg/dL (70-100) 03/03/17 05:28 Calcium 8.2 mg/dL (8.5-10.3) L 03/03/17 05:28 Magnesium 2.0 mg/dL (1.7-2.8) 03/03/17 05:28 Total Bilirubin 0.9 mg/dL (0.2-1.0) 03/03/17 05:28 AST 13 IU/L (10-42) 03/03/17 05:28 ALT 12 IU/L (10-60) 03/03/17 05:28 Alkaline Phosphatase 45 IU/L (42-121) 03/03/17 05:28 C-Reactive Protein < 1.0 mg/dL (0-1.0) 03/02/17 06:07 Total Protein 6.0 g/dL (6.7-8.2) L 03/03/17 05:28 Albumin 2.7 g/dL (3.2-5.5) L 03/03/17 05:28 Globulin 3.3 g/dL (2.1-4.2) 03/03/17 05:28 Albumin/Globulin Ratio 0.8 (1.0-2.2) L 03/03/17 05:28 Amylase 33 U/L (28-100) 03/02/17 06:07 Lipase 28 U/L (22-51) 03/01/17 18:32 Carcinoembryonic Ag 0.7 ng/mL 03/03/17 05:28 Blood Type A POSITIVE 03/01/17 18:32 Antibody Screen NEGATIVE 03/01/17 18:32
--- NOTE | 2017-03-03 11:22 | PROVIDER PROGRESS NOTE ---
Assessment/Plan - Problem List (1) GI bleeding Qualifiers: GI bleed type/associated pathology: unspecified gastrointestinal hemorrhage type Qualified Code(s): K92.2 - Gastrointestinal hemorrhage, unspecified Assessment/Plan: 76 yo female with GI bleed s/p EGD & Colonoscopy Day #1 found to have severe gastritis with ulcerations, thrush, large rectosigmoid mass. Bleeding controlled during colonoscopy. May have rebleed from mass. Continue PPI's and Carafate. Continue to monitor CBC's transfuse PRN. Ok to begin liquids. advance if tolerates and no active bleeding Metastatic Workup begun. CEA 0.[address] scan abdomen/Pelvis being performed. Case being discussed with [facility] surgeons. - Current Meds Current Meds: Current Medications Generic Name Dose Route Start Last Admin Trade Name Freq PRN Reason Stop Dose Admin Alprazolam 0.25 mg 03/01/17 21:44 03/01/17 21:59 Xanax PO 0.25 mg Q6HR PRN Administration Anxiety Amlodipine Besylate 5 mg 03/02/17 21:00 03/02/17 22:09 Norvasc PO 5 mg QPM LENKA Administration Atenolol 50 mg 03/02/17 09:00 03/03/17 10:14 Tenormin PO 50 mg DAILY LENKA Administration Cholecalciferol 1,000 unit 03/02/17 09:00 03/03/17 10:14 Vitamin D3 PO 1,000 unit DAILY LENKA Administration Clindamycin HCl 300 mg 03/02/17 00:00 03/03/17 06:54 Cleocin PO 300 mg Q6HR LENKA Administration Sodium Chloride 1,000 mls @ 100 mls/hr 03/01/17 20:00 03/03/17 07:36 Normal Saline 0.9% IV 100 mls/hr .Q10H LENKA Administration Potassium Chloride 40 meq/ 500 mls @ 125 mls/hr 03/03/17 08:12 03/03/17 09:46 Sodium Chloride IV 03/03/17 12:11 125 mls/hr ONCE ONE Administration Losartan Potassium 50 mg 03/01/17 21:50 03/03/17 10:15 Cozaar PO 50 mg DAILY LENKA Administration Multivitamins 1 tab 03/02/17 08:00 03/03/17 10:13 Theragran PO 1 tab DAILYWM LENKA Administration Pantoprazole Sodium 40 mg 03/01/17 21:00 03/03/17 10:15 Protonix IVP 40 mg BID LENKA Administration Polyethylene Glycol 17 gm 03/02/17 09:00 03/03/17 10:15 Miralax PO 17 gm DAILY LENKA Administration Potassium Chloride 20 meq 03/02/17 08:00 03/03/17 10:14 K-Dur PO 20 meq DAILYWM LENKA Administration Sodium Chloride 10 ml 03/01/17 22:00 03/03/17 04:27 Normal Saline Flush 0.9% IVP Not Given Q8HR LENKA Sucralfate 1 gm 03/02/17 22:00 03/03/17 06:54 Carafate PO 1 gm 0700,1100,1600,2200 LENKA Administration Zolpidem Tartrate 5 mg 03/01/17 19:50 03/02/17 23:48 Ambien PO 5 mg QPM PRN Administration Insomnia - Lab Result Fish Bone Diagrams: 03/03/17 05:28 03/03/17 05:28 - Additional Planning My Orders: My Active Orders 03/02/17 22:00 Sucralfate [Carafate] 1 gm PO 0700,1100,1600,2200 Subjective - Subjective Patient Reports: No Complaints Nursing Reports: Other (RN reports minimal clots noted in stool) Objective Vital Signs: Vital Signs - 24 hr 03/02/17 03/02/17 03/02/17 16:55 20:00 20:05 Temperature 36.3 C L Heart Rate [ 58 L Brachial] Respiratory 18 Rate Blood Pressure 129/67 [Left Brachial artery] Blood Pressure [Right Brachial artery] O2 Saturation 99 96 96 03/02/17 03/02/17 03/02/17 20:10 20:15 20:20 Temperature Heart Rate [ Brachial] Respiratory Rate Blood Pressure [Left Brachial artery] Blood Pressure [Right Brachial artery] O2 Saturation 97 99 98 03/02/17 03/02/17 03/02/17 20:25 20:31 20:40 Temperature 36.4 C L Heart Rate [ 64 Brachial] Respiratory 16 Rate Blood Pressure [Left Brachial artery] Blood Pressure 179/77 H [Right Brachial artery] O2 Saturation 96 98 97 03/02/17 03/02/17 03/02/17 21:15 21:45 22:49 Temperature 36.4 C L 36.2 C L 35.9 C L Heart Rate [ 60 63 66 Brachial] Respiratory 20 16 20 Rate Blood Pressure [Left Brachial artery] Blood Pressure 182/73 H 169/76 H 146/85 H [Right Brachial artery] O2 Saturation 95 99 98 03/02/17 03/03/17 03/03/17 23:49 04:48 08:43 Temperature 36.5 C 37.0 C 36.5 C Heart Rate [ 68 66 64 Brachial] Respiratory 18 16 16 Rate Blood Pressure [Left Brachial artery] Blood Pressure 136/76 H 134/69 H 159/75 H [Right Brachial artery] O2 Saturation 97 95 94 Oxygen O2 Source Room air I&O (Last 24 Hrs): Intake and Output Totals x24h 03/01/17 03/02/17 03/03/17 23:59 23:59 23:59 Intake Total 1204 1264 Balance 1204 1264 General: Alert HEENT: EOMI Neuro: Alert Cardiovascular: Regular rate Respiratory: Breath sounds nml Abdomen: Normal bowel sounds, Soft, No tenderness - Results Results: Laboratory Results WBC 6.9 x10^3/uL (4.8-10.8) 03/03/17 05:28 RBC 3.65 10^6/uL (4.20-5.40) L 03/03/17 05:28 Hgb 11.2 g/dL (12.0-16.0) L 03/03/17 05:28 Hct 33.4 % (37.0-47.0) L 03/03/17 05:28 MCV 91.6 fL (81.0-99.0) 03/03/17 05:28 MCH 30.6 pg (27.0-31.0) 03/03/17 05:28 MCHC 33.4 g/dL (32.0-36.0) 03/03/17 05:28 RDW 13.0 % (12.0-15.0) 03/03/17 05:28 Plt Count 186 10^3/uL (130-450) 03/03/17 05:28 MPV 9.1 fL (7.9-10.8) 03/03/17 05:28 Neut # 4.8 10^3/uL (1.5-6.6) 03/03/17 05:28 Lymph # 1.4 10^3/uL (1.5-3.5) L 03/03/17 05:28 [place] # 0.5 10^3/uL (0.0-1.0) 03/03/17 05:28 Eos # 0.1 10^3/uL (0.0-0.7) 03/03/17 05:28 Baso # 0.0 10^3/uL (0.0-0.1) 03/03/17 05:28 Absolute Nucleated RBC 0.00 x10^3/uL 03/03/17 05:28 Nucleated RBCs 0.1 /100WBC 03/03/17 05:28 PT 13.5 secs (9.9-12.6) H 03/03/17 05:28 INR 1.2 (0.8-1.2) 03/03/17 05:28 Sodium 141 mmol/L (135-145) 03/03/17 05:28 Potassium 3.2 mmol/L (3.5-5.0) L 03/03/17 05:28 Chloride 111 mmol/L (101-111) 03/03/17 05:28 Carbon Dioxide 20 mmol/L (21-32) L 03/03/17 05:28 Anion Gap 10.0 (6-13) 03/03/17 05:28 BUN 12 mg/dL (6-20) 03/03/17 05:28 Creatinine 0.6 mg/dL (0.4-1.0) 03/03/17 05:28 Estimated GFR (MDRD) 97 (>89) 03/03/17 05:28 Glucose 76 mg/dL (70-100) 03/03/17 05:28 Calcium 8.2 mg/dL (8.5-10.3) L 03/03/17 05:28 Magnesium 2.0 mg/dL (1.7-2.8) 03/03/17 05:28 Total Bilirubin 0.9 mg/dL (0.2-1.0) 03/03/17 05:28 AST 13 IU/L (10-42) 03/03/17 05:28 ALT 12 IU/L (10-60) 03/03/17 05:28 Alkaline Phosphatase 45 IU/L (42-121) 03/03/17 05:28 C-Reactive Protein < 1.0 mg/dL (0-1.0) 03/02/17 06:07 Total Protein 6.0 g/dL (6.7-8.2) L 03/03/17 05:28 Albumin 2.7 g/dL (3.2-5.5) L 03/03/17 05:28 Globulin 3.3 g/dL (2.1-4.2) 03/03/17 05:28 Albumin/Globulin Ratio 0.8 (1.0-2.2) L 03/03/17 05:28 Amylase 33 U/L (28-100) 03/02/17 06:07 Lipase 28 U/L (22-51) 03/01/17 18:32 Carcinoembryonic Ag 0.7 ng/mL 03/03/17 05:28 Blood Type A POSITIVE 03/01/17 18:32 Antibody Screen NEGATIVE 03/01/17 18:32
[2017-03-03] MEDS: IOPAMIDOL-300 100 ML VIAL IVP ONE ×2 (11:44→11:46)
[2017-03-03] MEDS ORDERED: IOPAMIDOL-300 50 ML VIAL PO ONE (11:44)
[2017-03-03] MEDS: NYSTATIN 500000 UNITS/5 ML UDC PO SCH ×4 (12:31→20:52)
--- NOTE | 2017-03-03 12:35 | CT Report ---
CT OF THE ABDOMEN AND PELVIS WITH CONTRAST: 03/03/2017 CLINICAL INDICATION: Gastric ulcers, colon tumor. TECHNIQUE: Axial CT images of the abdomen and pelvis were obtained with 100 mL of Isovue-300 intraven ously as well as oral contrast. COMPARISON: 03/16/2016. FINDINGS: Limited evaluation of the lung bases is unremarkable. ABDOMEN: Multiple metallic bruce are seen in the stomach. The liver demonstrates a solitary minimal ly hypervascular nodule in the anterior left lobe, measuring 8 mm. The spleen, pancreas, kidneys and adrenal glands are unremarkable. The gallbladder is not dilated. No bowel dilatation, free gas, or fr ee fluid is present. No abdominal adenopathy is appreciated. PELVIS: Colonic diverticulosis is present. There is abnormal soft tissue in the distal sigmoid colon, likely representing the tumor mass, measuring approximately 4 cm. No pelvic free fluid or adenopathy is appreciated. The osseous structures demonstrate degenerative changes. IMPRESSION: 1. LIKELY 4 CM TUMOR IN THE DISTAL SIGMOID COLON. NO DEFINITE ADENOPATHY. 2. SOLITARY 8 MM MINIMALLY HYPERVASCULAR NODULE IN THE ANTERIOR LEFT LOBE OF THE LIVER. 3. MULTIPLE METALLIC FOREIGN BODIES IN THE STOMACH, LIKELY POSTOPERATIVE IN ETIOLOGY. In accordance with CT protocol optimization, one or more of the following dose reduction techniques w ere utilized for this exam: automated exposure control, adjustment of mA and/or KV based on patient size, or use of iterative reconstructive technique. JOB #: [id number] EXT JOB #:[id number]
[2017-03-03] MEDS: CHOLECALCIFEROL 5,000 UNIT CAPSULE PO SCH (16:14)
[2017-03-03 17:55] LABS: BASOPHILS # (AUTO) 0.1 10^3/uL (0.0-0.1); BASOPHILS % (AUTO) 0.9 %; EOSINOPHILS # (AUTO) 0.1 10^3/uL (0.0-0.7); EOSINOPHILS % (AUTO) 0.9 %; HGB - HEMOGLOBIN 11.8 g/dL (12.0-16.0); IMMATURE RETIC FRACTION 0.42; LYMPHOCYTES # (AUTO) 1.9 10^3/uL (1.5-3.5); LYMPHOCYTES % (AUTO) 20.3 %; MEAN CORPUSCULAR HEMOGLOBIN 30.7 pg (27.0-31.0); MEAN CORPUSCULAR HGB CONC 33.7 g/dL (32.0-36.0); MEAN CORPUSCULAR VOLUME 91.1 fL (81.0-99.0); MEAN PLATELET VOLUME 8.5 fL (7.9-10.8); MONOCYTES # (AUTO) 0.6 10^3/uL (0.0-1.0); MONOCYTES % (AUTO) 6.1 %; NEUTROPHILS # (AUTO) 6.6 10^3/uL (1.5-6.6); NEUTROPHILS % (AUTO) 71.8 %; NUCLEATED RED BLOOD CELLS AUTO 0.1 /100WBC; RED BLOOD COUNT 3.85 10^6/uL (4.20-5.40); UNCORRECTED WHITE BLOOD COUNT 9.2 x10^3/uL; WHITE BLOOD COUNT 9.2 x10^3/uL (4.8-10.8)
[2017-03-03] MEDS: ALPRAZolam 0.25 MG TABLET PO PRN (17:58)
[2017-03-03 18:17] LABS: IRON 95 ug/dL (28-170); TOTAL IRON BINDING CAPACITY 304 ug/dL (250-450); TRANSFERRIN 217 mg/dL (192-382)
[2017-03-03 18:34] LABS: FERRITIN 45.3 ng/mL (11.0-306.8)
[2017-03-03] MEDS: amLODIPine 5 MG TABLET PO SCH (20:52)
--- NOTE | 2017-03-03 22:27 | CT Preliminary Report ---
Exam: CT Chest W/O IMPRESSION: 1. No concerning lung mass or nodule. Centrilobular and paraseptal emphysema. No pneumothorax or effu sions. 2. No pathologic adenopathy. [facility] SITE ID: [id number]
--- NOTE | 2017-03-03 22:46 | CT Report ---
EXAM: CT CHEST EXAM DATE: 03/03/2017 09:31 PM. CLINICAL HISTORY: Tumor in rectosigmoid, mass in liver. COMPARISONS: None. TECHNIQUE: Routine helical CT imaging was performed through the chest. IV contrast: None. Reconstructions: Coron al and sagittal. In accordance with CT protocol optimization, one or more of the following dose reduction techniques w ere utilized for this exam: automated exposure control, adjustment of mA and/or KV based on patient s ize, or use of iterative reconstructive technique. FINDINGS: Lungs/Pleura: No nodules, bronchial thickening, consolidation, or edema. Pulmonary vasculature is nor mal. No pericardial or pleural effusion. No pneumothorax. Centrilobular and paraseptal emphysema note d. Mediastinum: Mild cardiac enlargement. No pericardial effusion. No bulky mediastinal or hilar adenopa thy. Bones: No osteoblastic or osteolytic lesions are noted. T7 hemangioma. Visualized Abdomen: See separate post contrast-enhanced CT of the abdomen for description of liver fi ndings. Other: Small hiatal hernia is noted. Surgical clips are noted in the stomach. IMPRESSION: 1. No concerning lung mass or nodule. Centrilobular and paraseptal emphysema. No pneumothorax or effu sions. 2. No pathologic adenopathy. [facility] Referring Provider Line: [phone] SITE ID: [id number]
[2017-03-04] MEDS: CLINDAMYCIN 150 MG CAPSULE PO SCH ×4 (00:16→18:39)
[2017-03-04] MEDS: ZOLPIDEM 5 MG TABLET PO PRN (00:50)
[2017-03-04] MEDS: SUCRALFATE 1 GM/10 ML UDC PO SCH ×4 (06:24→21:03)
[2017-03-04] MEDS: SODIUM CHLORIDE FLUSH 0.9% 10 ML SYRINGE IVP SCH ×3 (06:24→21:04)
[2017-03-04] MEDS: SODIUM CHLORIDE 0.9% 1,000 ML IV SCH (06:26)
[2017-03-04 06:43] LABS: INR 1.2 (0.8-1.2); PT - PROTHROMBIN TIME 13.7 secs (9.9-12.6)
[2017-03-04 06:47] LABS: ALBUMIN/GLOBULIN RATIO 0.8 (1.0-2.2); BILIRUBIN,TOTAL 0.8 mg/dL (0.2-1.0); CALCIUM 8.2 mg/dL (8.5-10.3); CREATININE 0.5 mg/dL (0.4-1.0); MAGNESIUM 1.6 mg/dL (1.7-2.8); POTASSIUM 3.4 mmol/L (3.5-5.0); TOTAL PROTEIN 5.8 g/dL (6.7-8.2)
--- NOTE | 2017-03-04 07:35 | PROVIDER PROGRESS NOTE ---
Assessment/Plan - Problem List (1) Malignant tumor of rectosigmoid junction Assessment/Plan: acute. Patient seen by surgery and they will do outpatient in 3 days as long as patient remains stable hemodynamically. will plan to discharge in morning if CBC ok. patient is tolerating full diet. Protonix 40mg IV BID (2) Hypokalemia due to loss of potassium Assessment/Plan: ongoing. potassium today at 3.4, improving but will continue to replete with IV and oral and monitor daily with lab draws. (3) Low serum magnesium level Assessment/Plan: acute. replace with magnesium sulfate IV 4gm and monitor level with daily lab draws (4) Acute lower GI bleeding Assessment/Plan: ongoing. continue to monitor bleeding and CBC in daily lab. avoid NSAIDS. surgery planned for Tuesday. 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 continue with blood pressure medication Cozaar. Hydralaxine IV 10mg PRN for SBP>180 (7) Thrush of mouth and esophagus Assessment/Plan: improving. continue with nystatin oral medication - Current Meds Current Meds: Current Medications Generic Name Dose Route Start Last Admin Trade Name Freq PRN Reason Stop Dose Admin Alprazolam 0.25 mg 03/01/17 21:44 03/03/17 17:58 Xanax PO 0.25 mg Q6HR PRN Administration Anxiety Amlodipine Besylate 5 mg 03/02/17 21:00 03/03/17 20:52 Norvasc PO 5 mg QPM LENKA Administration Atenolol 50 mg 03/02/17 09:00 03/03/17 10:14 Tenormin PO 50 mg DAILY LENKA Administration Cholecalciferol 5,000 unit 03/03/17 16:00 03/03/17 16:14 Vitamin D3 PO 5,000 unit DAILY LENKA Administration Clindamycin HCl 300 mg 03/02/17 00:00 03/04/17 06:24 Cleocin PO 300 mg Q6HR LENKA Administration Sodium Chloride 1,000 mls @ 100 mls/hr 03/01/17 20:00 03/04/17 06:26 Normal Saline 0.9% IV 100 mls/hr .Q10H LENKA Administration Losartan Potassium 50 mg 03/01/17 21:50 03/03/17 10:15 Cozaar PO 50 mg DAILY LENKA Administration Multivitamins 1 tab 03/02/17 08:00 03/03/17 10:13 Theragran PO 1 tab DAILYWM LENKA Administration Nystatin 5 ml 03/03/17 11:00 03/03/17 20:52 Mycostatin PO 5 ml QID LENKA Administration Pantoprazole Sodium 40 mg 03/01/17 21:00 03/03/17 20:51 Protonix IVP 40 mg BID LENKA Administration Polyethylene Glycol 17 gm 03/02/17 09:00 03/03/17 10:15 Miralax PO 17 gm DAILY LENKA Administration Potassium Chloride 20 meq 03/02/17 08:00 03/03/17 10:14 K-Dur PO 20 meq DAILYWM LENKA Administration Sodium Chloride 10 ml 03/01/17 22:00 03/04/17 06:24 Normal Saline Flush 0.9% IVP Not Given Q8HR LENKA Sucralfate 1 gm 03/02/17 22:00 03/04/17 06:24 Carafate PO 1 gm 0700,1100,1600,2200 LENKA Administration Zolpidem Tartrate 5 mg 03/01/17 19:50 03/04/17 00:50 Ambien PO 5 mg QPM PRN Administration Insomnia - Lab Result Lab results reviewed: Yes Fish Bone Diagrams: 03/04/17 06:17 03/04/17 06:17 Other Lab Results: Abnormal Lab Results 03/02/17 03/03/17 03/03/17 23:16 05:28 05:28 RBC 3.89 10^6/uL L 10^6/uL 3.65 10^6/uL L 10^6/uL (4.20-5.40) (4.20-5.40) Hgb 11.7 g/dL L g/dL 11.2 g/dL L g/dL (12.0-16.0) (12.0-16.0) Hct 35.5 % L % 33.4 % L % (37.0-47.0) (37.0-47.0) Lymph # 1.3 10^3/uL L 10^3/uL 1.4 10^3/uL L 10^3/uL (1.5-3.5) (1.5-3.5) PT 13.5 secs H secs (9.9-12.6) Potassium Carbon Dioxide Calcium Magnesium Alkaline Phosphatase Total Protein Albumin Albumin/Globulin Ratio 03/03/17 03/03/17 03/04/17 05:28 17:43 06:17 RBC 3.85 10^6/uL L 10^6/uL (4.20-5.40) Hgb 11.8 g/dL L g/dL (12.0-16.0) Hct 35.0 % L % (37.0-47.0) Lymph # PT 13.7 secs H secs (9.9-12.6) Potassium 3.2 mmol/L L mmol/L (3.5-5.0) Carbon Dioxide 20 mmol/L L mmol/L (21-32) Calcium 8.2 mg/dL L mg/dL (8.5-10.3) Magnesium Alkaline Phosphatase Total Protein 6.0 g/dL L g/dL (6.7-8.2) Albumin 2.7 g/dL L g/dL (3.2-5.5) Albumin/Globulin Ratio 0.8 L (1.0-2.2) 03/04/17 06:17 RBC Hgb Hct Lymph # PT Potassium 3.4 mmol/L L mmol/L (3.5-5.0) Carbon Dioxide Calcium 8.2 mg/dL L mg/dL (8.5-10.3) Magnesium 1.6 mg/dL L mg/dL (1.7-2.8) Alkaline Phosphatase 41 IU/L L IU/L (42-121) Total Protein 5.8 g/dL L g/dL (6.7-8.2) Albumin 2.6 g/dL L g/dL (3.2-5.5) Albumin/Globulin Ratio 0.8 L (1.0-2.2) - EKG Results EKG Interpreted Independently: No - Diagnostic Imaging Results Diagnostic Imaging Results: positive: Final report reviewed Diagnostic Imaging Results Comments: Ct of chest: Impression: No acute process or mass - Additional Planning Condition/Complexity: Stable My Orders: My Active Orders 03/03/17 11:00 Nystatin [Mycostatin] 5 ml PO QID 03/03/17 16:00 Cholecalciferol [Vitamin D3] 5,000 unit PO DAILY Consult/Specialty: OT, PT, Surgery Plan Discussed with:: Patient, Family, Case Management Time Spent: 31-60 minutes (Patient to see surgical consult today for plan to do surgery to remove tumor in rectosigmoid region. will need additional inpatient stay if going to surgery. She is high risk for worsening co morbid conditions because of the medications IV and high risk for toxicity and additional consults and diagnostics) Additional Planning Notes: Plan to discharge in the morning if electrolytes and CBC stable. Subjective - Subjective Patient Reports: Feeling Better, Resting Comfortably, No Complaints Nursing Reports: No Complaints, Other (anxious regarding surgery plan) Objective Vital Signs: Vital Signs - 24 hr 03/03/17 03/03/17 03/03/17 08:43 12:07 13:34 Temperature 36.5 C 36.6 C Heart Rate [ 64 69 67 Brachial] Respiratory 16 16 Rate Blood Pressure [Left Brachial artery] Blood Pressure 159/75 H 171/74 H 169/67 H [Right Brachial artery] O2 Saturation 94 99 03/03/17 03/03/17 03/03/17 15:55 18:00 18:23 Temperature 36.6 C Heart Rate [ 77 69 Brachial] Respiratory 18 Rate Blood Pressure 180/78 H [Left Brachial artery] Blood Pressure 192/95 H 199/67 H 182/70 H [Right Brachial artery] O2 Saturation 94 03/03/17 03/04/17 03/04/17 20:49 00:38 06:07 Temperature 36.6 C 36.7 C 36.7 C Heart Rate [ 66 72 74 Brachial] Respiratory 18 16 15 Rate Blood Pressure [Left Brachial artery] Blood Pressure 152/68 H 163/79 H 166/79 H [Right Brachial artery] O2 Saturation 97 95 95 Oxygen O2 Source Room air I&O (Last 24 Hrs): Intake and Output Totals x24h 03/02/17 03/03/17 03/04/17 23:59 23:59 23:59 Intake Total 1204 3310 1018 Balance 1204 3310 1018 General: Alert, Oriented x3, Cooperative HEENT: Atraumatic, PERRLA Neck: Supple, No JVD Lymphatic: no adenopathy Neuro: Alert, CN 2-12 Grossly Intact, Oriented Times 3 Cardiovascular: Regular rate, Normal S1, Normal S2, No murmurs Respiratory: Chest non-tender, No respiratory distress, Breath sounds nml Abdomen: Normal bowel sounds, Soft Rectal: Stool - Heme POS Extremities: No clubbing, No cyanosis, No edema, Normal pulses, No tenderness/ swelling Skin: No rashes, No breakdown, No significant lesion - Results Results: Laboratory Results WBC 9.2 x10^3/uL (4.8-10.8) 03/03/17 17:43 RBC 3.85 10^6/uL (4.20-5.40) L 03/03/17 17:43 Hgb 11.8 g/dL (12.0-16.0) L 03/03/17 17:43 Hct 35.0 % (37.0-47.0) L 03/03/17 17:43 MCV 91.1 fL (81.0-99.0) 03/03/17 17:43 MCH 30.7 pg (27.0-31.0) 03/03/17 17:43 MCHC 33.7 g/dL (32.0-36.0) 03/03/17 17:43 RDW 13.0 % (12.0-15.0) 03/03/17 17:43 Plt Count 229 10^3/uL (130-450) 03/03/17 17:43 MPV 8.5 fL (7.9-10.8) 03/03/17 17:43 Reticulocyte % (Auto) 1.77 % (0.5-2.3) 03/03/17 17:43 Neut # 6.6 10^3/uL (1.5-6.6) 03/03/17 17:43 Lymph # 1.9 10^3/uL (1.5-3.5) 03/03/17 17:43 [place] # 0.6 10^3/uL (0.0-1.0) 03/03/17 17:43 Eos # 0.1 10^3/uL (0.0-0.7) 03/03/17 17:43 Baso # 0.1 10^3/uL (0.0-0.1) 03/03/17 17:43 Absolute Nucleated RBC 0.01 x10^3/uL 03/03/17 17:43 Nucleated RBCs 0.1 /100WBC 03/03/17 17:43 Absolute Retic 0.068 10^6/uL (0.020-0.110) 03/03/17 17:43 PT 13.7 secs (9.9-12.6) H 03/04/17 06:17 INR 1.2 (0.8-1.2) 03/04/17 06:17 Sodium 139 mmol/L (135-145) 03/04/17 06:17 Potassium 3.4 mmol/L (3.5-5.0) L 03/04/17 06:17 Chloride 111 mmol/L (101-111) 03/04/17 06:17 Carbon Dioxide 22 mmol/L (21-32) 03/04/17 06:17 Anion Gap 6.0 (6-13) 03/04/17 06:17 BUN 6 mg/dL (6-20) 03/04/17 06:17 Creatinine 0.5 mg/dL (0.4-1.0) 03/04/17 06:17 Estimated GFR (MDRD) 119 (>89) 03/04/17 06:17 Glucose 95 mg/dL (70-100) 03/04/17 06:17 Calcium 8.2 mg/dL (8.5-10.3) L 03/04/17 06:17 Magnesium 1.6 mg/dL (1.7-2.8) L 03/04/17 06:17 Iron 95 ug/dL (28-170) 03/03/17 17:43 TIBC 304 ug/dL (250-450) 03/03/17 17:43 % Saturation 31 % (20-50) 03/03/17 17:43 Transferrin 217 mg/dL (192-382) 03/03/17 17:43 Ferritin 45.3 ng/mL (11.0-306.8) 03/03/17 17:43 Total Bilirubin 0.8 mg/dL (0.2-1.0) 03/04/17 06:17 AST 14 IU/L (10-42) 03/04/17 06:17 ALT 10 IU/L (10-60) 03/04/17 06:17 Alkaline Phosphatase 41 IU/L (42-121) L 03/04/17 06:17 Lactate Dehydrogenase 117 IU/L (91-225) 03/03/17 17:43 C-Reactive Protein < 1.0 mg/dL (0-1.0) 03/02/17 06:07 Total Protein 5.8 g/dL (6.7-8.2) L 03/04/17 06:17 Albumin 2.6 g/dL (3.2-5.5) L 03/04/17 06:17 Globulin 3.2 g/dL (2.1-4.2) 03/04/17 06:17 Albumin/Globulin Ratio 0.8 (1.0-2.2) L 03/04/17 06:17 Amylase 33 U/L (28-100) 03/02/17 06:07 Lipase 28 U/L (22-51) 03/01/17 18:32 Carcinoembryonic Ag 0.7 ng/mL 03/03/17 05:28 Vitamin B12 293 pg/mL (180-914) 03/03/17 17:43 Blood Type A POSITIVE 03/01/17 18:32 Antibody Screen NEGATIVE 03/01/17 18:32
[2017-03-04] MEDS ORDERED: CYANOCOBALAMIN 1,000 MCG/ML VIAL IM ONE (07:37)
[2017-03-04 07:44] LABS: BASOPHILS # (AUTO) 0.1 10^3/uL (0.0-0.1); BASOPHILS % (AUTO) 0.7 %; EOSINOPHILS # (AUTO) 0.2 10^3/uL (0.0-0.7); EOSINOPHILS % (AUTO) 2.1 %; HCT - HEMATOCRIT 31.2 % (37.0-47.0); HGB - HEMOGLOBIN 10.7 g/dL (12.0-16.0); LYMPHOCYTES # (AUTO) 1.3 10^3/uL (1.5-3.5); LYMPHOCYTES % (AUTO) 17.1 %; MEAN CORPUSCULAR HEMOGLOBIN 31.1 pg (27.0-31.0); MEAN CORPUSCULAR HGB CONC 34.2 g/dL (32.0-36.0); MEAN CORPUSCULAR VOLUME 91.1 fL (81.0-99.0); MEAN PLATELET VOLUME 8.9 fL (7.9-10.8); MONOCYTES # (AUTO) 0.6 10^3/uL (0.0-1.0); MONOCYTES % (AUTO) 7.6 %; NEUTROPHILS # (AUTO) 5.5 10^3/uL (1.5-6.6); NEUTROPHILS % (AUTO) 72.5 %; NUCLEATED RED BLOOD CELLS AUTO 0.1 /100WBC; RED BLOOD COUNT 3.42 10^6/uL (4.20-5.40); RED CELL DISTRIBUTION WIDTH 12.8 % (12.0-15.0); UNCORRECTED WHITE BLOOD COUNT 7.5 x10^3/uL; WHITE BLOOD COUNT 7.5 x10^3/uL (4.8-10.8)
[2017-03-04] MEDS ORDERED: CYANOCOBALAMIN 1,000 MCG/ML VIAL IM SCH (09:00)
[2017-03-04] MEDS: PANTOPRAZOLE 40 MG VIAL IVP SCH ×2 (09:37→21:04)
[2017-03-04] MEDS: MAGNESIUM SULFATE 2 GRAM 50 ML IV SCH ×2 (09:38→11:42)
[2017-03-04] MEDS: POLYETHYLENE GLYCOL 3350 17 GM PACKET PO SCH (09:39)
[2017-03-04] MEDS: LOSARTAN 50 MG TABLET PO SCH (09:39)
[2017-03-04] MEDS: POTASSIUM CHLORIDE 20 MEQ TABLET PO SCH (09:39)
[2017-03-04] MEDS: MULTIVITAMIN TABLET PO SCH (09:39)
[2017-03-04] MEDS: CHOLECALCIFEROL 5,000 UNIT CAPSULE PO SCH (09:39)
[2017-03-04] MEDS: ATENOLOL 25 MG TABLET PO SCH (09:39)
[2017-03-04] MEDS: NYSTATIN 500000 UNITS/5 ML UDC PO SCH ×4 (10:24→21:03)
[2017-03-04] MEDS ORDERED: MAGNESIUM SULFATE 2 GRAM 50 ML IV ONE (11:41)
[2017-03-04] MEDS: amLODIPine 5 MG TABLET PO SCH (21:03)
[2017-03-05] MEDS: ZOLPIDEM 5 MG TABLET PO PRN (00:45)
[2017-03-05] MEDS: CLINDAMYCIN 150 MG CAPSULE PO SCH ×3 (00:53→12:59)
[2017-03-05] MEDS: PANTOPRAZOLE 40 MG VIAL IVP SCH (05:52)
[2017-03-05] MEDS: SODIUM CHLORIDE FLUSH 0.9% 10 ML SYRINGE IVP SCH (05:53)
[2017-03-05] MEDS: SUCRALFATE 1 GM/10 ML UDC PO SCH ×2 (06:07→13:00)
[2017-03-05 06:09] LABS: BASOPHILS # (AUTO) 0.1 10^3/uL (0.0-0.1); BASOPHILS % (AUTO) 0.7 %; EOSINOPHILS # (AUTO) 0.2 10^3/uL (0.0-0.7); EOSINOPHILS % (AUTO) 2.3 %; HCT - HEMATOCRIT 32.3 % (37.0-47.0); LYMPHOCYTES # (AUTO) 1.5 10^3/uL (1.5-3.5); LYMPHOCYTES % (AUTO) 20.7 %; MEAN CORPUSCULAR HEMOGLOBIN 30.8 pg (27.0-31.0); MEAN CORPUSCULAR HGB CONC 34.2 g/dL (32.0-36.0); MEAN CORPUSCULAR VOLUME 90.1 fL (81.0-99.0); MEAN PLATELET VOLUME 8.5 fL (7.9-10.8); MONOCYTES # (AUTO) 0.6 10^3/uL (0.0-1.0); MONOCYTES % (AUTO) 8.8 %; NEUTROPHILS % (AUTO) 67.5 %; NUCLEATED RED BLOOD CELLS AUTO 0.1 /100WBC; RED BLOOD COUNT 3.58 10^6/uL (4.20-5.40); RED CELL DISTRIBUTION WIDTH 12.8 % (12.0-15.0); UNCORRECTED WHITE BLOOD COUNT 7.4 x10^3/uL; WHITE BLOOD COUNT 7.4 x10^3/uL (4.8-10.8)
[2017-03-05 06:17] LABS: ALBUMIN/GLOBULIN RATIO 0.8 (1.0-2.2); BILIRUBIN,TOTAL 0.6 mg/dL (0.2-1.0); CALCIUM 8.5 mg/dL (8.5-10.3); CREATININE 0.5 mg/dL (0.4-1.0); MAGNESIUM 1.7 mg/dL (1.7-2.8); POTASSIUM 3.4 mmol/L (3.5-5.0); TOTAL PROTEIN 6.2 g/dL (6.7-8.2)
[2017-03-05 06:38] LABS: INR 1.2 (0.8-1.2); PT - PROTHROMBIN TIME 13.3 secs (9.9-12.6)
[2017-03-05] MEDS: NYSTATIN 500000 UNITS/5 ML UDC PO SCH (07:56)
[2017-03-05] MEDS: LOSARTAN 50 MG TABLET PO SCH (07:57)
[2017-03-05] MEDS: CHOLECALCIFEROL 5,000 UNIT CAPSULE PO SCH (07:57)
[2017-03-05] MEDS: POTASSIUM CHLORIDE 20 MEQ TABLET PO SCH (07:57)
[2017-03-05] MEDS: MULTIVITAMIN TABLET PO SCH (07:57)
[2017-03-05] MEDS: POLYETHYLENE GLYCOL 3350 17 GM PACKET PO SCH (07:57)
[2017-03-05] MEDS: ATENOLOL 25 MG TABLET PO SCH (07:58)
[2017-03-05] MEDS ORDERED: POTASSIUM CHLORIDE 20 MEQ TABLET PO SCH (08:00)
--- NOTE | 2017-03-05 08:16 | Discharge Plan ---
Discharge Plan Disposition: Home, Self Care Condition: Stable Prescriptions: Vitamin D3/Folic Acid [Folixapure Tablet] 5,000 unit PO DAILY #30 tablet Potassium Chloride [K-Dur] 40 meq PO DAILYWM #10 tablet Pantoprazole [Protonix] 40 mg PO BID #20 vial Multivitamin [Theragran] 1 tab PO DAILYWM #30 tablet Alprazolam [Xanax] 0.25 mg PO BID #20 tablet Diet: Cardiac Activity Restrictions: Activity as Tolerated Shower Restrictions: No Driving Restrictions: No Assistance Devices: Walker, Cane Weight Bearing: Full Weight Instruction Topics: Bleeding Gastrointestinal Ch, Bleeding Gastrointestinal Additional Instructions or Follow Up instructions: Please take all home medications as prescribed. You have been given several prescriptions for improving your immune system. Please continue to take these as prescribed. You will need to follow the bowel prep as prescribed by Surgery on Tuesday. If you have any questions regarding this please call the Surgery Center. Continue to follow a heart healthy diet up until you begin the bowel prep. You should avoid soda and limit caffeine since these can dehydrate you. Eat small meals more frequently since they are digested better. Avoid NSAIDS and stop taking your aspirin in preparation for surgery. You have been given a prescription for Xanax. Take this when needed to help you to relax and decrease the anxiety you may be feeling over the next couple days. Do not drive when taking this medication Be sure to get plenty of sleep at night. The xanax can help this. Dont take the Ambien and Xanax together. Get rest but do exercise during the day. Walking is best. It helps to decrease the stress and help your mood and help you relax. Remember to take care of yourself first. it is ok to say "NO" and let someone else take over. Dont do any "Extra" work this weekend. Take plenty of time for yourself. Take a hot bath, get a pedicure, massage or just spend some time in the outdoors with a good book is always a great way to unwind. If you have any questions or concerns please call the hospitalist service or surgical office. The number has been given to you by Nursing staff. If you start to have more severe bleeding, chest pain or shortness of breath, call [phone] or return to the nearest ER. No Smoking: If you smoke, Please STOP! Call for help.
[2017-03-05] MEDS: MAGNESIUM SULFATE 2 GRAM 50 ML IV SCH ×2 (09:51→09:55)
--- NOTE | 2017-03-05 10:00 | PROVIDER PROGRESS NOTE ---
Assessment/Plan - Problem List (1) GI bleeding Qualifiers: GI bleed type/associated pathology: unspecified gastrointestinal hemorrhage type Qualified Code(s): K92.2 - Gastrointestinal hemorrhage, unspecified Assessment/Plan: 76 yo female with Multiple medical problems found to have rectosigmoid mass and hypervascular liver lesion. Ct scans reviewed. Plan for surgery on 03/08/17 for Exploratory laparotomy, colon resection, possible excisional biopsy of liver lesion Will need colon prep before surgery - Current Meds Current Meds: Current Medications Generic Name Dose Route Start Last Admin Trade Name Freq PRN Reason Stop Dose Admin Alprazolam 0.25 mg 03/01/17 21:44 03/03/17 17:58 Xanax PO 0.25 mg Q6HR PRN Administration Anxiety Amlodipine Besylate 5 mg 03/02/17 21:00 03/04/17 21:03 Norvasc PO 5 mg QPM LENKA Administration Atenolol 50 mg 03/02/17 09:00 03/05/17 07:58 Tenormin PO 50 mg DAILY LENKA Administration Cholecalciferol 5,000 unit 03/03/17 16:00 03/05/17 07:57 Vitamin D3 PO 5,000 unit DAILY LENKA Administration Clindamycin HCl 300 mg 03/02/17 00:00 03/05/17 05:51 Cleocin PO 300 mg Q6HR LENKA Administration Losartan Potassium 50 mg 03/01/17 21:50 03/05/17 07:57 Cozaar PO 50 mg DAILY LENKA Administration Multivitamins 1 tab 03/02/17 08:00 03/05/17 07:57 Theragran PO 1 tab DAILYWM LENKA Administration Nystatin 5 ml 03/03/17 11:00 03/05/17 07:56 Mycostatin PO 5 ml QID LENKA Administration Pantoprazole Sodium 40 mg 03/01/17 21:00 03/05/17 05:52 Protonix IVP 40 mg BID LENKA Administration Polyethylene Glycol 17 gm 03/02/17 09:00 03/05/17 07:57 Miralax PO 17 gm DAILY LENKA Administration Potassium Chloride 40 meq 03/04/17 08:00 03/05/17 07:57 K-Dur PO 40 meq DAILYWM LENKA Administration Sodium Chloride 10 ml 03/01/17 19:50 03/04/17 09:38 Normal Saline Flush 0.9% IVP 10 ml PRN PRN Administration NEEDED PER PROVIDER ORDERS Sodium Chloride 10 ml 03/01/17 22:00 03/05/17 05:53 Normal Saline Flush 0.9% IVP 10 ml Q8HR LENKA Administration Sucralfate 1 gm 03/02/17 22:00 03/05/17 06:07 Carafate PO 1 gm 0700,1100,1600,2200 LENKA Administration Zolpidem Tartrate 5 mg 03/01/17 19:50 03/05/17 00:45 Ambien PO 5 mg QPM PRN Administration Insomnia - Lab Result Lab results reviewed: Yes Fish Bone Diagrams: 03/05/17 05:10 03/05/17 05:10 - Diagnostic Imaging Results Diagnostic Imaging Results: positive: Read contemporaneously (IMPRESSION: CT Chest . No concerning lung mass or nodule. Centrilobular and paraseptal emphysema. No pneumothorax or effusions. 2. No pathologic adenopathy. CT Abd/ P) - Additional Planning Condition/Complexity: Stable Plan Discussed with:: Patient, Family Subjective - Subjective Patient Reports: Feeling Better Nursing Reports: No Complaints Objective Vital Signs: Vital Signs - 24 hr 03/04/17 03/04/17 03/04/17 12:51 15:40 20:15 Temperature 36.8 C 36.7 C 37.4 C Heart Rate [ 64 63 65 Brachial] Respiratory 16 16 16 Rate Blood Pressure [Left Brachial artery] Blood Pressure 166/87 H 165/80 H 193/88 H [Right Brachial artery] O2 Saturation 98 96 99 03/04/17 03/05/17 20:45 00:42 Temperature 37.0 C Heart Rate [ 69 69 Brachial] Respiratory 16 Rate Blood Pressure 172/81 H [Left Brachial artery] Blood Pressure 175/93 H [Right Brachial artery] O2 Saturation 98 Oxygen O2 Source Room air I&O (Last 24 Hrs): Intake and Output Totals x24h 03/03/17 03/04/17 03/05/17 23:59 23:59 23:59 Intake Total 3310 2338 360 Balance 3310 2338 360 General: Alert, Oriented x3 Neck: No JVD Cardiovascular: Regular rate Respiratory: Breath sounds nml Abdomen: Normal bowel sounds, Soft - Results Results: Laboratory Results WBC 7.4 x10^3/uL (4.8-10.8) 03/05/17 05:10 RBC 3.58 10^6/uL (4.20-5.40) L 03/05/17 05:10 Hgb 11.0 g/dL (12.0-16.0) L 03/05/17 05:10 Hct 32.3 % (37.0-47.0) L 03/05/17 05:10 MCV 90.1 fL (81.0-99.0) 03/05/17 05:10 MCH 30.8 pg (27.0-31.0) 03/05/17 05:10 MCHC 34.2 g/dL (32.0-36.0) 03/05/17 05:10 RDW 12.8 % (12.0-15.0) 03/05/17 05:10 Plt Count 202 10^3/uL (130-450) 03/05/17 05:10 MPV 8.5 fL (7.9-10.8) 03/05/17 05:10 Reticulocyte % (Auto) 1.77 % (0.5-2.3) 03/03/17 17:43 Neut # 5.0 10^3/uL (1.5-6.6) 03/05/17 05:10 Lymph # 1.5 10^3/uL (1.5-3.5) 03/05/17 05:10 [place] # 0.6 10^3/uL (0.0-1.0) 03/05/17 05:10 Eos # 0.2 10^3/uL (0.0-0.7) 03/05/17 05:10 Baso # 0.1 10^3/uL (0.0-0.1) 03/05/17 05:10 Absolute Nucleated RBC 0.01 x10^3/uL 03/05/17 05:10 Nucleated RBCs 0.1 /100WBC 03/05/17 05:10 Absolute Retic 0.068 10^6/uL (0.020-0.110) 03/03/17 17:43 PT 13.3 secs (9.9-12.6) H 03/05/17 05:10 INR 1.2 (0.8-1.2) 03/05/17 05:10 Sodium 139 mmol/L (135-145) 03/05/17 05:10 Potassium 3.4 mmol/L (3.5-5.0) L 03/05/17 05:10 Chloride 107 mmol/L (101-111) 03/05/17 05:10 Carbon Dioxide 25 mmol/L (21-32) 03/05/17 05:10 Anion Gap 7.0 (6-13) 03/05/17 05:10 BUN 5 mg/dL (6-20) L 03/05/17 05:10 Creatinine 0.5 mg/dL (0.4-1.0) 03/05/17 05:10 Estimated GFR (MDRD) 119 (>89) 03/05/17 05:10 Glucose 105 mg/dL (70-100) H 03/05/17 05:10 Calcium 8.5 mg/dL (8.5-10.3) 03/05/17 05:10 Magnesium 1.7 mg/dL (1.7-2.8) 03/05/17 05:10 Iron 95 ug/dL (28-170) 03/03/17 17:43 TIBC 304 ug/dL (250-450) 03/03/17 17:43 % Saturation 31 % (20-50) 03/03/17 17:43 Transferrin 217 mg/dL (192-382) 03/03/17 17:43 Ferritin 45.3 ng/mL (11.0-306.8) 03/03/17 17:43 Total Bilirubin 0.6 mg/dL (0.2-1.0) 03/05/17 05:10 AST 15 IU/L (10-42) 03/05/17 05:10 ALT 10 IU/L (10-60) 03/05/17 05:10 Alkaline Phosphatase 41 IU/L (42-121) L 03/05/17 05:10 Lactate Dehydrogenase 117 IU/L (91-225) 03/03/17 17:43 C-Reactive Protein < 1.0 mg/dL (0-1.0) 03/02/17 06:07 Total Protein 6.2 g/dL (6.7-8.2) L 03/05/17 05:10 Albumin 2.8 g/dL (3.2-5.5) L 03/05/17 05:10 Globulin 3.4 g/dL (2.1-4.2) 03/05/17 05:10 Albumin/Globulin Ratio 0.8 (1.0-2.2) L 03/05/17 05:10 Amylase 33 U/L (28-100) 03/02/17 06:07 Lipase 28 U/L (22-51) 03/01/17 18:32 Carcinoembryonic Ag 0.7 ng/mL 03/03/17 05:28 Vitamin B12 293 pg/mL (180-914) 03/03/17 17:43 Blood Type A POSITIVE 03/01/17 18:32 Antibody Screen NEGATIVE 03/01/17 18:32
[2017-03-05 11:43] VITALS: BP 132/68
--- NOTE | 2017-03-05 15:05 | DISCHARGE SUMMARY ---
DATE OF ADMISSION: 03/02/2017 DATE OF DISCHARGE: 03/05/2017 ADMITTING DIAGNOSES: Acute lower gastrointestinal bleed. DISCHARGE DIAGNOSES 1. 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 2. Hypokalemia with loss of potassium. 3. Chronic left foot ulcer with Charcot. 4. Essential benign hypertension. 5. Low serum level of magnesium. 6. Centrilobular and paraseptal emphysema. 7. 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 PROCEDURES EGD: Positive for rectosigmoid mass and hypervascular liver lesion. CT of the chest, impression: No concerning lung mass or nodule, centrilobular and paraseptal emphysem a, no pneumothorax or effusions, no pathologic adenopathy. Abdominal pelvis CT, impression: Showed likely 4 cm tumor in the distal sigmoid colon. No definite ad enopathy, solitary 8 mm minimally hypervascular nodule in the anterior left lobe of the liver, and mu ltiple metallic foreign bodies in the stomach, likely postoperative etiology, and colonic diverticulo sis. CONSULTATIONS: With surgical for EGD and preop for surgery for rectosigmoid tumor/mass, physical and occupational therapy. HOSPITAL COURSE AND TREATMENT: The patient is a very pleasant 76-year-old female who presen marcus through the ER with a complaint of acute lower GI bleeding/hemorrhage. She has a significant medi arsalan history for hypertension, Charcot joint with a history of chronic foot ulcers, hypercholesterolem ia, and mild anxiety. The patient was in her normal state of health prior to coming to the ER when sh e went to the bathroom and had several loose stools that were maroon to dark in color with large bloo d clots. She has never had a previous history of GI bleeding before. The patient did not have a histo ry of aspirin or NSAID usage, smoking or drinking excessively. She had no history of fevers or chills recently. The patient continued to have several loose bowel stools that appeared bloody with clots a pproximately every 30 minutes to 1 hour until she presented to the ER. ER worked the patient up, star marcus her on Protonix 40 mg b.i.d., contacted surgery and contacted hospitalist staff for admission to evaluate lower GI bleeding. The patient was found to be quite hypertensive, but not tachycardic. She admitted to having 6-7 bowel movements that were all bloody and dark maroon appearing with clots. Thi s was confirmed by the nursing staff in the ER while the patient was in the restroom. The patient did have a stable hemoglobin at 13.8 at the time of admission, was not hypotensive, but had become sligh tly tachycardic at admission. Over the course of several days of treatment, she remained afebrile. No abdominal pain, but did have continuous bleeding. She was tested for C difficile, which was negative and Campylobacter, which was also negative. CT of abdomen and pelvis was requested, which did show a hypervascular lesion to the left upper lobe and colonoscopy and EGD were both performed, which did s how a mass/tumor in the rectosigmoid colon. She was noted to also have several areas of ulceration wi th EGD done by Dr. Feliciano in the upper abdomen. The patient's hypertension was managed with atenolo l, Benicar, Catapres, home medication. Her vitamin D deficiency was monitored with vitamin D suppleme ntation, aspirin was held. She continued on Ambien at night for sleep, continued on a multivitamin fo r supplementation, vitamin D for supplement, and also continued on doxycycline for Charcot of the lef t foot. The patient remained on telemetry throughout the stay. EKG was performed, which showed sinus rhythm and mild tachycardia at admission. She received IV fluids, normal saline for gentle hydration. She did remain on a cardiac diet except when she was n.p.o. for testing. [facility] and evaluation and removal of the mass tumor in the rectosigmoid colo n for 3 days status post discharge with Dr. Feliciano and [facility] [place]. The patient also wa s noted to have low potassium and magnesium, which was replaced with both oral potassium in IV and IV magnesium sulfate. She was also given a prescription for both potassium and magnesium at discharge. The patient did have some mild anxiety related to her diagnosis. She was also given a prescription fo r Xanax to help with the anxiety prior to surgery on Tuesday. The patient was seen by Dr. Feliciano pr ior to discharge to be given instructions regarding the care she will need and the surgical prep need ed before the procedure on Tuesday. The patient's family was to take her home. She had instructions t o rest over the next several days prior to her procedure on Tuesday. The patient verbally understood the instructions that were given to her. She understands she is to start back on her home medications that she was taking prior with the exception of aspirin. Vital signs are stable at the time of disch arge. HOME MEDICATIONS 1. Ambien. 2. Amlodipine. 3. Besylate. 4. Atenolol. 5. Benicar. 6. Clonidine. 7. [place] 3 fish oil. 8. Multivitamin. 9. Vitamin B complex. 10. Vitamin D with folate. 11. Potassium chloride. 12. Protonix. 13. Multivitamin. 14. Xanax. PHYSICAL EXAMINATION CONSTITUTIONAL: The patient is alert, in no acute distress. EYES: Pupils equal, round and react to light and accommodation. Conjunctivae and sclerae was nonicter ic, not injected. ENT: Nares are patent. No nasal discharge. Oropharynx with no masses, exudates or lesions. Mucous mem branes were moist. NECK: Supple. No thyromegaly. CARDIOVASCULAR: S1, S2 noted. No gallops, murmurs or rubs. Normal PMI. No JVD. RESPIRATORY: Breath sounds are clear and equal bilaterally to auscultation and percussion. No retract ions, nasal flaring, increased work of breathing. GASTROINTESTINAL: Abdomen was soft, nontender. Bowel sounds were noted. No guarding or rebound. GENITOURINARY: No CVA tenderness. No mass palpated. No bladder distention. MUSCULOSKELETAL/EXTREMITIES: The patient has full range of motion with upper and lower extremities. N o edema. Noted left foot with mild tenderness with Charcot. PSYCHIATRIC: Behavior is appropriate. Normal affect, pleasant mood. NEUROLOGIC: The patient is alert, GCS 15. Cranial nerves 2-12 are grossly intact. Sensory is intact. HEMATOLOGIC: The patient was not actively bleeding at this time and was hemodynamically stable. LYMPHATICS: No cervical, axillary, supraclavicular lymphadenopathy is noted. SKIN: Warm, dry, intact. Normal turgor. No evidence of rash, lesions, or cellulitis. INSTRUCTIONS FOR DISCHARGE AND FOLLOWUP Activity: The patient understands she is to continue activities of daily living with rest and to ambu late as tolerated. She will have help at home with her daughter and she has been instructed to not pe rform any extraneous exercise over the next few days. Diet: She understands she is to follow a cardiac heart healthy diet. She is to avoid NSAIDs and any a lcohol products. Continue to drink plenty of water throughout the day, avoid soda and limit caffeine. Sleep: The patient understands she is to continue to get 7-8 hours of sleep at night. She was given X anax to help with the anxiety and with sleep. She does have a home prescription of Ambien and was cou nseled not to use Ambien and Xanax together. Followup: She understands she is to follow up with Surgery on Tuesday for her surgical prep. She is to take all home medications as prescribed. She has been instructed to return to the ER should she have more significant bleeding, symptoms reoccur, or she should have any shortness of breath or chest shayne n to call 911. Both family and the patient were given verbal instructions, as well as educational mat erials regarding the patient's diagnosis. The patient verbally understood and was able to safely be t aken out of the hospital to go home with family. Time spent on education planning and discharge was 50 minutes. STATUS: THE PATIENT REMAINED FULL CODE STATUS. JOB #: [id number] EXT JOB #:[id number]
== END 2017-03-05 13:17 | disposition home or self-care (01) | DRG 374 ==
LOC: ED 15:50 → MS 19:50 → OBSVTOIN 03-02 11:34 → MS 03-02 12:47
PROVIDERS: ADMIT Internal Medicine; ATTEND Nurse Practitioner
PROC: 0DB78ZX Excision of Stomach, Pylorus, Via Natural or Artificial Opening Endoscopic, Diagnostic (ICD-10-PCS; 2017-03-02)
PROC: 0DB68ZX Excision of Stomach, Via Natural or Artificial Opening Endoscopic, Diagnostic (ICD-10-PCS; 2017-03-02)
PROC: 0DBN8ZX Excision of Sigmoid Colon, Via Natural or Artificial Opening Endoscopic, Diagnostic (ICD-10-PCS; 2017-03-02)
PROC: 0W3P8ZZ Control Bleeding in Gastrointestinal Tract, Via Natural or Artificial Opening Endoscopic (ICD-10-PCS; principal; 2017-03-02 12:45)
PROC: 0DB48ZX Excision of Esophagogastric Junction, Via Natural or Artificial Opening Endoscopic, Diagnostic (ICD-10-PCS; 2017-03-02 12:45)
DX: D49.0 Neoplasm of unspecified behavior of digestive system (principal); K25.4 Chronic or unspecified gastric ulcer with hemorrhage; A52.16 Charcot's arthropathy (tabetic); B37.81 Candidal esophagitis; L97.529 Non-pressure chronic ulcer of other part of left foot with unspecified severity; K76.9 Liver disease, unspecified; B37.0 Candidal stomatitis; K64.8 Other hemorrhoids; J43.2 Centrilobular emphysema; I10 Essential (primary) hypertension; F41.9 Anxiety disorder, unspecified; E83.42 Hypomagnesemia; E87.6 Hypokalemia; E55.9 Vitamin D deficiency, unspecified; E78.00 Pure hypercholesterolemia, unspecified; Z79.82 Long term (current) use of aspirin; Z79.2 Long term (current) use of antibiotics; Z79.899 Other long term (current) drug therapy
CPT/HCPCS: 36415; 71250; 74177; 80053; 82150; 82378; 82607; 82728; 83540; 83615; 83690; 83735; 84466; 85025; 85044; 85610; 85651; 86140; 86850; 86900; 86901; 87045; 87046; 87077; 87493; 88305; 93005; 93306; 96361; 96365; 96374; 96375; 96376; 99283; 99285

== ENCOUNTER 2017-03-08 10:50 | Inpatient (IN) | payer MEDICARE, MEDICAID ==
[2017-03-08] MEDS ORDERED: LACTATED RINGERS 1,000 ML IV ONE ×4 (10:55→16:05)
--- NOTE | 2017-03-08 11:22 | HISTORY & PHYSICAL EXAMINATION ---
Chief Complaint - Chief Complaint Chief Complaint: Bleeding Colon Mass History of Present Illness - Admitted From Admitted From:: Outpatient Surgery - History Obtained From Records Reviewed: yes History obtained from: Chart & Patient Exam Limitations: Non - History of Present Illness HPI Comment/Other: 76 yo female with hx of hypertension, charcots joint with history of chronic foot ulcers and hypercholesterolemia was admitted to [facility] on 03/01/17 for GI Bleeding, and found to have erosive gastritis with minor oozing, as well as an approximately 6 cm near completely obstructing,bleeding ulcerated rectosigmoid mass, with 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 The patient remained stable for discharge and did not require a blood transfusion during this stay. She was instructed to return today for partial colon resection with possible ostomy. She notes that she continues to pass blood clots and has drank most of the prep and is running clear. Last meal yesterday. Review of Systems - Constitutional Constitutional: denies: Fever, Chills - Eyes Eyes: reports: Corrective lenses. denies: Pain - Ears, Nose & Throat Ears, Nose & Throat: denies: Ear pain - Cardiovascular Cariovascular: denies: Irregular heart rate, Palpitations, Chest pain - Respiratory Respiratory: denies: Cough, Sputum production, Wheezing - Gastrointestinal Gastrointestinal: reports: Bloody stools. denies: Abdominal pain, Constipation , Diarrhea - Musculoskeletal Musculoskeletal: reports: Muscle pain, Back pain - Integumentary Integumentary: reports: Rash, Pruritis - Neurological Neurological: denies: General weakness - Psychiatric Psychiatric: denies: Depression, Anxiety - Endocrine Endocrine: denies: Polyuria, Polydypsia - Hematologic/Lymphatic Hematologic/Lymphatic: reports: Anemia, Blood clots (blood clots noted in stool) . denies: Bruising, Petechiae History - Past Medical History Cardiovascular: reports: Hypertension, High cholesterol Respiratory: reports: None Neuro: reports: None Endocrine/Autoimmune: reports: None GI: reports: None : reports: None HEENT: reports: None Psych: reports: Anxiety Musculoskeletal: reports: Other Derm: reports: Other MRSA Hx?: Yes - Past Surgical History General: reports: Appendectomy HEENT: reports: Tonsil/Adenoidectomy - Family & Social History Living arrangement: At home Living Situation: With spouse/s.o., With family Social History Notes: Patient lives in [place] with . Recently daughter and grandkids have moved in due to daughter going through marital issues. Patient under a lot of stress due to taking care of with parkinsons and family problems. - Substance History Use: Uses substance without health or social issues: Alcohol (1-2 glasses of wine a week with dinner) - POLST Patient has POLST: No POLST Status: Full Code Meds/Allgy - Home Medications Home Medications: Ambulatory Orders Medication Instructions Recorded Confirmed Atenolol 50 mg PO DAILY 08/22/13 03/08/17 Zolpidem [Ambien] 10 mg PO HS 08/22/13 03/08/17 Olmesartan Medoxomil [Benicar] 20 mg PO DAILY 09/14/13 03/08/17 Vitamin B Complex 1 each PO DAILY 09/14/13 03/08/17 cloNIDine [Catapres] 0.1 mg PO DAILY 09/14/13 03/08/17 Amlodipine Besylate 5 mg PO DAILY 08/18/15 03/08/17 [place]-3/Dha/Epa/Fish Oil [Fish Oil 1,000 mg PO DAILY 03/17/16 03/08/17 Conc 1,000 mg Softgel] Alprazolam [Xanax] 0.25 mg PO BID #20 tablet 03/05/17 03/08/17 Multivitamin [Theragran] 1 tab PO DAILYWM #30 tablet 03/05/17 03/08/17 Pantoprazole [Protonix] 40 mg PO BID #20 vial 03/05/17 03/08/17 Potassium Chloride [K-Dur] 40 meq PO DAILYWM #10 tablet 03/05/17 03/08/17 Vitamin D3/Folic Acid [Folixapure 5,000 unit PO DAILY #30 tablet 03/05/17 Tablet] - Allergies Allergies/Adverse Reactions: Allergies Allergy/AdvReac Type Severity Reaction Status Date / Time strawberry Allergy Unknown Verified 03/16/16 10:06 venom-honey bee Allergy swelling Verified 08/22/13 22:28 [bee venom (honey bee)] Exam - Vital Signs Reviewed Vital Signs: Yes Vital Signs: Vital Signs x48h Temp Pulse Resp BP Pulse Ox 03/08/17 10:57 36.7 C 74 14 175/76 H 100 - Physical Exam General Appearance: positive: No acute distress, Alert Eyes Bilateral: positive: EOMI ENT: positive: No signs of dehydration Neck: positive: Trachea midline Respiratory: positive: No respiratory distress, Breath sounds nml Cardiovascular: positive: Regular rate & rhythm Peripheral Pulses: positive: 2+ Abdomen: positive: Non-tender, Nml bowel sounds, No distention. negative: Tenderness Rectal: positive: Other (Deferred- Recent Colonoscopy within last week) Conclusion/Plan - Problem List (1) Mass of colon Conclusion/Plan: 76 yo Female with Lower GI Bleed found to have Rectosigmoid ulcerated mass and 8 mm Left partially hypervascular Liver Lesion. Or today for Laparoscopic colon resection with possible ostomy, excisional biopsy of liver lesion. Following surgery will be admitted to Hospital Epidural Friedman NPO NG tube to LWS Daily wound care Medical cconsult called for medical issue management - Lab Results Lab results reviewed: Yes Fish Bones: 03/08/17 11:27 03/08/17 11:27 - Diagnostic Imaging Results Diagnostic Imaging Results: positive: Read contemporaneously Diagnostic Imaging Results Comments: 03/03/17 CT Chest IMPRESSION: 1. No concerning lung mass or nodule. Centrilobular and paraseptal emphysema. No pneumothorax or effusions. 2. No pathologic adenopathy. 03/03/17 CT ABd/ P IMPRESSION: 1. LIKELY 4 CM TUMOR IN THE DISTAL SIGMOID COLON. NO DEFINITE ADENOPATHY. 2. SOLITARY 8 MM MINIMALLY HYPERVASCULAR NODULE IN THE ANTERIOR LEFT LOBE OF THE LIVER. 3. MULTIPLE METALLIC FOREIGN BODIES IN THE STOMACH, LIKELY POSTOPERATIVE IN ETIOLOGY. - EKG Results EKG Interpreted Independently: No EKG Findings: 03/02/17 Sinus rhythm, consider left ventricular hypertrophy, baseline wander in leads V3,V4. Rate 58 bpm - Other Other Results/Comments: 03/05/17 Echo 1.EF 60%-65% Grade I diastolic dysfunction. Mild aortic stenosis with peak/Mean pressure gradient of 21 mmHg/ 12 mmHg. trace aortic regurgitation. Issues/Core Measures - Anticipated LOS Anticipated Stay Length: 2 or more midnights - DVT/VTE - Prophylaxis VTE/DVT Device ordered at admit?: Yes VTE/DVT Prophylaxis med ordered at admit?: Yes
[2017-03-08 11:34] LABS: HCT - HEMATOCRIT 32.9 % (37.0-47.0); MEAN CORPUSCULAR HEMOGLOBIN 30.3 pg (27.0-31.0); MEAN CORPUSCULAR HGB CONC 33.5 g/dL (32.0-36.0); MEAN CORPUSCULAR VOLUME 90.3 fL (81.0-99.0); MEAN PLATELET VOLUME 8.6 fL (7.9-10.8); RED BLOOD COUNT 3.64 10^6/uL (4.20-5.40); RED CELL DISTRIBUTION WIDTH 13.2 % (12.0-15.0); WHITE BLOOD COUNT 6.8 x10^3/uL (4.8-10.8)
[2017-03-08 11:43] LABS: CALCIUM 9.1 mg/dL (8.5-10.3); CREATININE 0.6 mg/dL (0.4-1.0); POTASSIUM 3.5 mmol/L (3.5-5.0)
[2017-03-08] MEDS ORDERED: PHENOL THROAT SPRAY 177 ML MM PRN (11:49)
[2017-03-08] MEDS ORDERED: METOCLOPRAMIDE 10 MG/2 ML VIAL IVP PRN (11:49)
[2017-03-08] MEDS ORDERED: MIDAZOLAM 2 MG/2 ML VIAL IVP ONE (12:00)
[2017-03-08] MEDS ORDERED: PROPOFOL 200 MG/20 ML VIAL IVP ONE (12:00)
[2017-03-08] MEDS ORDERED: fentaNYL 100 MCG/2 ML VIAL IVP ONE (12:00)
[2017-03-08] MEDS ORDERED: ePHEDrine 50 MG/ML VIAL IVP ONE (12:00)
[2017-03-08] MEDS ORDERED: ONDANSETRON 4 MG/2 ML VIAL IVP ONE (12:00)
[2017-03-08] MEDS ORDERED: DEXAMETHASONE 4 MG/ML VIAL IVP ONE (12:00)
[2017-03-08] MEDS ORDERED: ROCURONIUM 50 MG/5 ML VIAL IVP ONE (12:00)
[2017-03-08] MEDS ORDERED: BUPIVACAINE 0.25% PF 10 ML VIAL SUBQ ONE (12:00)
[2017-03-08] MEDS ORDERED: GLYCOPYRROLATE 1 MG/5 ML VIAL IVP ONE (12:00)
[2017-03-08] MEDS ORDERED: NEOSTIGMINE 1 MG/1 ML 10 ML MDV IVP ONE (12:00)
[2017-03-08] MEDS ORDERED: fent/BUPIV 2 MCG/0.125% 250 ML EP ONE (14:27)
[2017-03-08] MEDS ORDERED: ONDANSETRON 4 MG/2 ML VIAL IVP PRN (14:44)
[2017-03-08] MEDS ORDERED: diphenhydrAMINE INJ 50 MG/ML VIAL IVP PRN (14:44)
[2017-03-08] MEDS ORDERED: NALBUPHINE 20 MG/ML AMP IVP PRN (14:44)
--- NOTE | 2017-03-08 16:33 | OPERATIVE REPORT ---
Operative Report - General Admit Date: 03/08/17 Procedure Date: 03/08/17 Planned Procedure: Laparoscopic Low Anterior Resection Pre-Op Diagnosis: Bleeding Rectosigmoid mass Post Op Diagnosis: Same - Procedure Note Primary Surgeon: Dr. Feliciano Secondary Surgeon: Dr. Flores Anesthesia Provider: Matt Gonzalez CRNA Anesthesia Technique: Epidural, General LMA Pathology: Rectosigmiod colon with mass Estimated Blood Loss (in cc): 50 Drain/Tube Type: positive: James drain, Merlin Ramsay round drain (#[id number]) Complications: NONE - Other Other Information/Narrative: Please see dictated report
[2017-03-08] MEDS ORDERED: ACETAMINOPHEN 1,000 MG/100 ML 100 ML IV PRN (17:00)
[2017-03-08] MEDS: PIPERACILLIN/TAZOBACTAM 3.375 GM in SODIUM CHLORIDE 0.9% MINIBAG 100 ML IV SCH ×2 (17:59→18:04)
[2017-03-08] MEDS: SODIUM CHLORIDE FLUSH 0.9% 10 ML SYRINGE IVP SCH ×2 (17:59→23:13)
[2017-03-08] MEDS: METOPROLOL 5 MG/5 ML VIAL IVP SCH ×2 (17:59→20:21)
[2017-03-08] MEDS: LACTATED RINGERS 1,000 ML IV SCH (18:05)
[2017-03-08] MEDS: PANTOPRAZOLE 40 MG VIAL IVP SCH (18:14)
[2017-03-08] MEDS: HEPARIN 5,000 UNIT/ML VIAL SUBQ SCH (20:31)
[2017-03-09] MEDS: LACTATED RINGERS 1,000 ML IV SCH ×2 (00:21→05:09)
[2017-03-09] MEDS: METOPROLOL 5 MG/5 ML VIAL IVP SCH ×3 (02:14→13:45)
[2017-03-09] MEDS: PIPERACILLIN/TAZOBACTAM 3.375 GM in SODIUM CHLORIDE 0.9% MINIBAG 100 ML IV SCH ×3 (05:10)
[2017-03-09] MEDS: SODIUM CHLORIDE FLUSH 0.9% 10 ML SYRINGE IVP SCH ×3 (05:10→21:18)
[2017-03-09] MEDS: PANTOPRAZOLE 40 MG VIAL IVP SCH (06:33)
[2017-03-09] MEDS: HEPARIN 5,000 UNIT/ML VIAL SUBQ SCH ×3 (06:33→21:25)
[2017-03-09] MEDS: SODIUM CHLORIDE FLUSH 0.9% 10 ML SYRINGE IVP PRN (06:34)
--- NOTE | 2017-03-09 06:46 | OPERATIVE REPORT ---
DATE OF SURGERY: 03/08/2017 00:00:00 PREOPERATIVE DIAGNOSIS: Bleeding rectosigmoid mass, 8 mm left liver lobe lesion. POSTOPERATIVE DIAGNOSIS: Bleeding rectosigmoid mass, 8 mm left liver lobe lesion. PROCEDURE: Rigid sigmoidoscopy, laparoscopic hand-assisted low anterior resection with colorectal stapled anastomosis. PRIMARY SURGEON: Andre Feliciano DO ELECTRICAL MANAGER: Willam Flores MD ANESTHESIA: General with epidural placement by Joslyn Gonzalez CRNA. FINDINGS: Rectosigmoid mass with tattooed colon, colonic diverticula. SPECIMEN: Rectosigmoid colon. COMPLICATIONS: None. ESTIMATED BLOOD LOSS: 50 mL. FLUIDS: Crystalloid given 3400 mL of LR. URINE OUTPUT 750 mL. INDICATIONS: The patient is a 76-year-old female, with history of hypertension and hypercholesterolemia, and left Charcot joint with chronic foot ulcers, who recently came to [facility] due to a GI bleed. She has never had a colonoscopy or EGD before. She underwent an endoscopy and colonoscopy, which elucidated erosive gastritis with bleeding mucosa, which was hemostatically controlled. 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 Hemostasis was temporarily achieved in the endoscopy suite. The patient underwent subsequent CT chest, abdomen, and pelvis scans, and a left liver lobe 8 mm hypervascular lesion was noted. She did not require blood transfusion during her stay, so the patient was deemed stable for discharge home over the weekend by Medicine, and plans were made for resection of the bleeding mass in the upcoming week with urgency as she began occasionally passing blood clots. The initial finding of EGD and colonoscopy were explained to the patient and her family as well as the CT scan all in layman's terms, and the surgical options were discussed as well. The risks of surgery were discussed with the family and the patient including, but not limited to infection, bleeding, perforation, other organ injury including ureteral injury, possible ostomy placement, possible bowel resection, possible future hernia occurrence, scarring , abscess formation, possible need for future surgeries and colonoscopy since the mass was near obstructing and the entire colon was not visualized on the initial colonoscopy, possible need for Oncology and chemotherapy and radiation, risks of anesthesia, risks of , and all questions were answered. The patient and the family were agreeable to proceed with the surgery and signed preoperative informed consent. DESCRIPTION OF PROCEDURE: The patient had an epidural placed preoperatively. The patient was placed supine on the operating table. SCDs were placed. After general anesthesia was established, a Friedman was placed, then the patient was placed in the lithotomy position using Joe stirrups. The abdomen and perineal areas were prepped and draped in the regular manner. A timeout was completed verifying the correct patient, procedure site, positioning, implants and/or special equipment prior to beginning the procedure. Preoperative Zosyn was given. An approximately 12 cm midline infraumbilical laparotomy incision was made with a #10 blade scalpel, and subcutaneous tissues were with electrocautery down to the anterior abdominal fascia. Once divided the intraabdominal cavity was accessed. Bowel was then protected as the rest of the abdominal wall was opened in the midline. The Juan Luis wound protector retractor was placed, followed by a GelPort laparoscopic system. A 12 mm port was placed through the GelPort. Pneumoperitoneum was established. Exploration of the abdominal cavity took place to rule out any metastatic disease. The liver and peritoneum were examined, and no metastasis was identified. The left and right lobes of the liver were inspected, and no lesions seen on CT were noted. Pictures were taken. Following that, two 5 mm trocars under direct vision were inserted in the supraumbilical area, as well as the left lower quadrant. A 5 mm trocar was inserted through the GelPort under direct vision as well. The sigmoid colon was then retracted anteriorly, and the vascular pedicle was identified. An incision into the peritoneum was done at the level of the sacral promontory, and dissection was carried out to bring up the mesentery of the sigmoid from the retroperitoneum. The left ureter and gonadal vessels were identified and protected at all times. Dissection then was carried laterally along the white line of Toldt below the splenic flexure with good mobilization. The left fallopian tube and uterus were preventing safe further dissection laparoscopically, so the Juan Luis system and trocars were then removed, and the procedure was converted to an open procedure with a Leah retractor placed with good exposure. The NG tube was then confirmed to be in the stomach, and both liver lobes were palpated without feeling any masses. A YENNI-75 mm blue load was used to divide the descending colon. The sigmoidal branches and superior rectal vessels of the KATHI were then identified and divided with the LigaSure. The colon was then dissected to approximately 5 cm distal to the lesion. A Contour TA stapler was used to transect the distal colon. The specimen was removed and sent to Pathology. A pursestring suture was applied around taenia on the antimesenteric side of the proximal colon. A small opening was done in the staple line, and the anvil was inserted. The spike was inserted through the tenia at a point 1 cm proximal to the staple line and was then closed with the CEA stapler. After that, a side to end stapled anastomosis was performed using the 28 mm CEA stapler. The remnants were inspected, and one donut was completely intact, with the other donut torn. Vicryl Lembert interrupted sutures were placed across the anterior anastomosis. A rigid sigmoidoscopy was then performed, and the staple line appeared intact. The anastomosis was checked for leaks using air insufflation test, and no leaks were noted. There was no evidence of tension at the anastomosis, or torsion. Hemostasis was secured. There was no evidence of any trocar site bleeding. The abdomen was irrigated with saline. A 15-[place] Islander round EVAN drain was then placed through the left trocar site along the left pericolic gutter pelvis and sutured in place to the skin. The abdominal wall was then reapproximated, as was the fascial layer using a running looped 0 PDS suture with good approximation of both the abdominal fascia. Additional sterile saline was used to irrigate the subcutaneous fat, and then the surgical site as well as the supraumbilical trocar site were closed with sequential sterile bruce. Sterile dressing was then applied, and the skin with cleansed, and the patient was awakened from anesthesia without difficulty and extubated in the operating room, and she was transferred to the PACU in stable condition. She tolerated the procedure well. All lap pad, and instrument counts were correct. JOB #: [id number] EXT JOB #:[id number] DULCE
[2017-03-09] MEDS: D5.45NS W/20 MEQ KCL 1,000 ML IV SCH ×2 (08:43→20:46)
[2017-03-09 09:38] LABS: BASOPHILS % (AUTO) 0.3 %; HCT - HEMATOCRIT 30.2 % (37.0-47.0); HGB - HEMOGLOBIN 10.2 g/dL (12.0-16.0); LYMPHOCYTES # (AUTO) 1.2 10^3/uL (1.5-3.5); LYMPHOCYTES % (AUTO) 12.6 %; MEAN CORPUSCULAR HEMOGLOBIN 30.5 pg (27.0-31.0); MEAN CORPUSCULAR HGB CONC 33.7 g/dL (32.0-36.0); MEAN CORPUSCULAR VOLUME 90.5 fL (81.0-99.0); MEAN PLATELET VOLUME 8.8 fL (7.9-10.8); MONOCYTES # (AUTO) 0.5 10^3/uL (0.0-1.0); MONOCYTES % (AUTO) 5.7 %; NEUTROPHILS # (AUTO) 7.7 10^3/uL (1.5-6.6); NEUTROPHILS % (AUTO) 81.4 %; RED BLOOD COUNT 3.33 10^6/uL (4.20-5.40); RED CELL DISTRIBUTION WIDTH 12.7 % (12.0-15.0); UNCORRECTED WHITE BLOOD COUNT 9.5 x10^3/uL; WHITE BLOOD COUNT 9.5 x10^3/uL (4.8-10.8)
[2017-03-09 09:42] LABS: ALBUMIN/GLOBULIN RATIO 0.7 (1.0-2.2); BILIRUBIN,TOTAL 0.7 mg/dL (0.2-1.0); CALCIUM 8.3 mg/dL (8.5-10.3); CREATININE 0.6 mg/dL (0.4-1.0); MAGNESIUM 1.5 mg/dL (1.7-2.8); PHOSPHORUS 3.8 mg/dL (2.5-4.6); POTASSIUM 3.4 mmol/L (3.5-5.0); TOTAL PROTEIN 5.6 g/dL (6.7-8.2)
--- NOTE | 2017-03-09 10:56 | PROVIDER PROGRESS NOTE ---
Subjective - General Admit Date: 03/08/17 Procedure Date: 03/08/17 Post Op Days: 1 Procedure Performed: Laparoscopic assisted LAR - Review of Systems Wound/Incisions: positive: Dressing dry and intact Drain Type: EVAN Drain Output Description: serosanguenous Approximate mls Output: 100 General: positive: No symptoms HEENT: positive: No symptoms Cardiovascular: positive: No symptoms, Orthopnea Gastrointestinal: positive: No symptoms (Currently denies abdominal pain) Genitourinary: positive: No symptoms Musculoskeletal: positive: No symptoms Skin: positive: No symptoms Psychiatric: positive: No symptoms All Other Systems: positive: Reviewed and negative - Other Other Information/Narrative: Pt seen in am. States has no pain. Using IS. states passing small amount of flatus. Good urine output Objective - Patient Data Reviewed Vital Signs: Yes Vital Signs: Vital Signs x48h Temp Pulse Resp BP BP Pulse Ox 03/09/17 07:41 164/69 H 03/09/17 07:39 37 C 68 16 164/69 H 93 03/09/17 04:25 36.7 C 65 14 135/67 H 92 Weight: Weight 03/07/17 03/08/17 03/09/17 23:59 23:59 23:59 Weight (kg) 59.7 kg Intake & Output: Intake and Output Totals x24h 03/07/17 03/08/17 03/09/17 23:59 23:59 23:59 Intake Total 3700 965 Output Total 1250 250 Balance 2450 715 - Lab Results Lab Results: 03/09/17 09:15 03/09/17 09:15 Other Lab Results: Lab Results x24hrs 03/09/17 03/09/17 03/08/17 Range/Units 09:15 09:15 11:27 WBC 9.5 6.8 (4.8-10.8) x10^3/uL RBC 3.33 L 3.64 L (4.20-5.40) 10^6/uL Hgb 10.2 L 11.0 L (12.0-16.0) g/dL Hct 30.2 L 32.9 L (37.0-47.0) % MCV 90.5 90.3 (81.0-99.0) fL MCH 30.5 30.3 (27.0-31.0) pg MCHC 33.7 33.5 (32.0-36.0) g/dL RDW 12.7 13.2 (12.0-15.0) % Plt Count 249 256 (130-450) 10^3/uL MPV 8.8 8.6 (7.9-10.8) fL Neut # 7.7 H (1.5-6.6) 10^3/uL Lymph # 1.2 L (1.5-3.5) 10^3/uL Smith # 0.5 (0.0-1.0) 10^3/uL Eos # 0.0 (0.0-0.7) 10^3/uL Baso # 0.0 (0.0-0.1) 10^3/uL Absolute Nucleated RBC 0.00 x10^3/uL Nucleated RBCs 0.0 /100WBC Sodium 139 (135-145) mmol/L Potassium 3.4 L (3.5-5.0) mmol/L Chloride 107 (101-111) mmol/L Carbon Dioxide 25 (21-32) mmol/L Anion Gap 7.0 (6-13) BUN 10 (6-20) mg/dL Creatinine 0.6 (0.4-1.0) mg/dL Estimated GFR (MDRD) 97 (>89) Glucose 94 (70-100) mg/dL Calcium 8.3 L (8.5-10.3) mg/dL Phosphorus 3.8 (2.5-4.6) mg/dL Magnesium 1.5 L (1.7-2.8) mg/dL Total Bilirubin 0.7 (0.2-1.0) mg/dL AST 15 (10-42) IU/L ALT 12 (10-60) IU/L Alkaline Phosphatase 30 L (42-121) IU/L Total Protein 5.6 L (6.7-8.2) g/dL Albumin 2.3 L (3.2-5.5) g/dL Globulin 3.3 (2.1-4.2) g/dL Albumin/Globulin Ratio 0.7 L (1.0-2.2) Blood Type Antibody Screen 03/08/17 03/08/17 Range/Units 11:27 11:27 WBC (4.8-10.8) x10^3/uL RBC (4.20-5.40) 10^6/uL Hgb (12.0-16.0) g/dL Hct (37.0-47.0) % MCV (81.0-99.0) fL MCH (27.0-31.0) pg MCHC (32.0-36.0) g/dL RDW (12.0-15.0) % Plt Count (130-450) 10^3/uL MPV (7.9-10.8) fL Neut # (1.5-6.6) 10^3/uL Lymph # (1.5-3.5) 10^3/uL Smith # (0.0-1.0) 10^3/uL Eos # (0.0-0.7) 10^3/uL Baso # (0.0-0.1) 10^3/uL Absolute Nucleated RBC x10^3/uL Nucleated RBCs /100WBC Sodium 142 (135-145) mmol/L Potassium 3.5 (3.5-5.0) mmol/L Chloride 106 (101-111) mmol/L Carbon Dioxide 26 (21-32) mmol/L Anion Gap 10.0 (6-13) BUN 11 (6-20) mg/dL Creatinine 0.6 (0.4-1.0) mg/dL Estimated GFR (MDRD) 97 (>89) Glucose 103 H (70-100) mg/dL Calcium 9.1 (8.5-10.3) mg/dL Phosphorus (2.5-4.6) mg/dL Magnesium (1.7-2.8) mg/dL Total Bilirubin (0.2-1.0) mg/dL AST (10-42) IU/L ALT (10-60) IU/L Alkaline Phosphatase (42-121) IU/L Total Protein (6.7-8.2) g/dL Albumin (3.2-5.5) g/dL Globulin (2.1-4.2) g/dL Albumin/Globulin Ratio (1.0-2.2) Blood Type A POSITIVE Antibody Screen NEGATIVE - Current Medications Current Medications: Current Medications Generic Name Dose Route Start Last Admin Trade Name Freq PRN Reason Stop Dose Admin Heparin Sodium (Porcine) 5,000 unit 03/08/17 21:00 03/09/17 06:33 SUBQ 5,000 unit TID LENKA Administration Piperacillin Sod/Tazobactam 100 mls @ 200 mls/hr 03/08/17 13:30 03/09/17 05:10 Sod 3.375 gm/ Sodium Chloride IV 03/10/17 11:59 200 mls/hr Q6HR LENKA Administration Potassium Chloride/Dextrose/Sod Cl 1,000 mls @ 83.333 mls/hr 03/09/17 09:00 04/18 08:43 D5.45ns W/20 Meq Kcl IV 83.333 mls/hr .Q12H LENKA Administration Metoprolol Tartrate 5 mg 03/08/17 14:00 03/09/17 07:41 Lopressor Inj IVP 5 mg Q6H LENKA Administration Pantoprazole Sodium 40 mg 03/08/17 17:00 03/09/17 06:33 Protonix IVP 40 mg QDAC LENKA Administration Sodium Chloride 10 ml 03/08/17 11:49 03/09/17 06:34 Normal Saline Flush 0.9% IVP 10 ml PRN PRN Administration NEEDED PER PROVIDER ORDERS Sodium Chloride 10 ml 03/08/17 14:00 03/09/17 05:10 Normal Saline Flush 0.9% IVP Not Given Q8HR LENKA - Physical Exam Wound/Incisions: positive: Dressing dry and intact General Appearance: positive: No acute distress, Alert Eyes Bilateral: positive: EOMI Neck: positive: No JVD Respiratory: positive: Breath sounds nml Cardiovascular: positive: Regular rate & rhythm Abdomen: positive: Non-tender (+BS, hypoactive, NT, ND, no rebound or guarding) Impression/Plan - Problem List Problem List: s/p Laparoscopi LAR for bleeding rectosigmoid mass -Continue NPO ABX stopped Continue IVF Electrolytes replaced will continue epidural & hilliard today OOB to chair PT eval. Medicine on case appreciated.
[2017-03-09] MEDS: POTASSIUM CHLOR 10 MEQ/100 ML 100 ML IV SCH ×3 (11:27→14:42)
[2017-03-09] MEDS ORDERED: MAGNESIUM SULFATE 2 GRAM 50 ML IV SCH (12:00)
[2017-03-09] MEDS ORDERED: LABETALOL 5 MG/1 ML 20 ML MDV IVP PRN (16:06)
--- NOTE | 2017-03-09 16:10 | PROVIDER PROGRESS NOTE ---
Assessment/Plan - Problem List (1) Hypertension Qualifiers: Hypertension type: unspecified secondary hypertension Qualified Code(s): I15.9 - Secondary hypertension, unspecified; I15 - Secondary hypertension Assessment/Plan: She had good SBP 130s after surgery. She has slowly risento 180s+ She is to get Metoprolol. Added labetolol and clonidine patch. stop Metoprolol. (2) Malignant tumor of rectosigmoid junction Assessment/Plan: She is NPO, Due to epidural has no pain..] Using IS and getting 800. Will continue with surgery. - Current Meds Current Meds: Current Medications Generic Name Dose Route Start Last Admin Trade Name Freq PRN Reason Stop Dose Admin Heparin Sodium (Porcine) 5,000 unit 03/08/17 21:00 03/09/17 13:43 SUBQ 5,000 unit TID LENKA Administration Acetaminophen 100 mls @ 400 mls/hr 03/08/17 17:00 03/09/17 13:55 Ofirmev IV 03/10/17 16:59 400 mls/hr Q6HR PRN Administration PAIN Potassium Chloride/Dextrose/Sod Cl 1,000 mls @ 83.333 mls/hr 03/09/17 09:00 04/18 08:43 D5.45ns W/20 Meq Kcl IV 83.333 mls/hr .Q12H LENKA Administration Metoprolol Tartrate 5 mg 03/08/17 14:00 03/09/17 13:45 Lopressor Inj IVP 5 mg Q6H LENKA Administration Pantoprazole Sodium 40 mg 03/08/17 17:00 03/09/17 06:33 Protonix IVP 40 mg QDAC LENKA Administration Sodium Chloride 10 ml 03/08/17 11:49 03/09/17 06:34 Normal Saline Flush 0.9% IVP 10 ml PRN PRN Administration NEEDED PER PROVIDER ORDERS Sodium Chloride 10 ml 03/08/17 14:00 03/09/17 13:55 Normal Saline Flush 0.9% IVP 10 ml Q8HR LENKA Administration - Lab Result Fish Bone Diagrams: 03/09/17 09:15 03/09/17 09:15 Subjective - Subjective Patient Reports: Resting Comfortably Nursing Reports: No Complaints Objective Vital Signs: Vital Signs - 24 hr 03/08/17 03/08/17 03/08/17 16:33 16:38 16:40 Temperature Heart Rate [ Brachial] Respiratory Rate Blood Pressure Blood Pressure [Brachial artery] O2 Saturation 100 95 97 03/08/17 03/08/17 03/08/17 16:45 16:50 16:55 Temperature Heart Rate [ Brachial] Respiratory Rate Blood Pressure Blood Pressure [Brachial artery] O2 Saturation 99 98 98 03/08/17 03/08/17 03/08/17 17:00 17:05 17:10 Temperature Heart Rate [ Brachial] Respiratory Rate Blood Pressure Blood Pressure [Brachial artery] O2 Saturation 98 100 100 03/08/17 03/08/17 03/08/17 17:15 17:20 17:25 Temperature Heart Rate [ Brachial] Respiratory Rate Blood Pressure Blood Pressure [Brachial artery] O2 Saturation 99 100 100 03/08/17 03/08/17 03/08/17 17:30 17:35 17:45 Temperature 36.4 C L Heart Rate [ 57 L Brachial] Respiratory 16 Rate Blood Pressure Blood Pressure 156/74 H [Brachial artery] O2 Saturation 100 99 100 03/08/17 03/08/17 03/08/17 18:15 19:15 20:21 Temperature 36.4 C L 36.5 C Heart Rate [ 64 74 Brachial] Respiratory 16 16 Rate Blood Pressure 170/67 H Blood Pressure 155/69 H 152/68 H [Brachial artery] O2 Saturation 96 98 03/08/17 03/08/17 03/08/17 20:25 20:30 20:50 Temperature Heart Rate [ 65 67 72 Brachial] Respiratory Rate Blood Pressure Blood Pressure 161/72 H 154/75 H 147/71 H [Brachial artery] O2 Saturation 03/08/17 03/09/17 03/09/17 21:18 00:38 02:00 Temperature 36.8 C 36.9 C 36.6 C Heart Rate [ 67 80 76 Brachial] Respiratory 16 16 12 Rate Blood Pressure Blood Pressure 170/73 H 137/69 H 145/67 H [Brachial artery] O2 Saturation 98 94 93 03/09/17 03/09/17 03/09/17 02:14 02:47 04:25 Temperature 36.7 C Heart Rate [ 68 65 Brachial] Respiratory 14 Rate Blood Pressure 145/67 H Blood Pressure 163/69 H 135/67 H [Brachial artery] O2 Saturation 92 03/09/17 03/09/17 03/09/17 07:39 07:41 13:45 Temperature 37 C Heart Rate [ 68 Brachial] Respiratory 16 Rate Blood Pressure 164/69 H 184/74 H Blood Pressure 164/69 H [Brachial artery] O2 Saturation 93 03/09/17 14:01 Temperature 37.0 C Heart Rate [ 69 Brachial] Respiratory 18 Rate Blood Pressure Blood Pressure 184/74 H [Brachial artery] O2 Saturation 95 Oxygen O2 Source Room air I&O (Last 24 Hrs): Intake and Output Totals x24h 03/07/17 03/08/17 03/09/17 23:59 23:59 23:59 Intake Total 3700 1617 Output Total 1250 430 Balance 2450 1187 General: Alert, Oriented x3, Cooperative HEENT: PERRLA, EOMI Neck: No JVD, No thyromegaly Neuro: Alert, Oriented Times 3 Cardiovascular: Regular rate, No murmurs Respiratory: Chest non-tender, No respiratory distress Abdomen: Normal bowel sounds Extremities: No cyanosis, No edema Skin: No rashes, No breakdown - Results Results: Laboratory Results WBC 9.5 x10^3/uL (4.8-10.8) 03/09/17 09:15 RBC 3.33 10^6/uL (4.20-5.40) L 03/09/17 09:15 Hgb 10.2 g/dL (12.0-16.0) L 03/09/17 09:15 Hct 30.2 % (37.0-47.0) L 03/09/17 09:15 MCV 90.5 fL (81.0-99.0) 03/09/17 09:15 MCH 30.5 pg (27.0-31.0) 03/09/17 09:15 MCHC 33.7 g/dL (32.0-36.0) 03/09/17 09:15 RDW 12.7 % (12.0-15.0) 03/09/17 09:15 Plt Count 249 10^3/uL (130-450) 03/09/17 09:15 MPV 8.8 fL (7.9-10.8) 03/09/17 09:15 Neut # 7.7 10^3/uL (1.5-6.6) H 03/09/17 09:15 Lymph # 1.2 10^3/uL (1.5-3.5) L 03/09/17 09:15 Edmunds # 0.5 10^3/uL (0.0-1.0) 03/09/17 09:15 Eos # 0.0 10^3/uL (0.0-0.7) 03/09/17 09:15 Baso # 0.0 10^3/uL (0.0-0.1) 03/09/17 09:15 Absolute Nucleated RBC 0.00 x10^3/uL 03/09/17 09:15 Nucleated RBCs 0.0 /100WBC 03/09/17 09:15 Sodium 139 mmol/L (135-145) 03/09/17 09:15 Potassium 3.4 mmol/L (3.5-5.0) L 03/09/17 09:15 Chloride 107 mmol/L (101-111) 03/09/17 09:15 Carbon Dioxide 25 mmol/L (21-32) 03/09/17 09:15 Anion Gap 7.0 (6-13) 03/09/17 09:15 BUN 10 mg/dL (6-20) 03/09/17 09:15 Creatinine 0.6 mg/dL (0.4-1.0) 03/09/17 09:15 Estimated GFR (MDRD) 97 (>89) 03/09/17 09:15 Glucose 94 mg/dL (70-100) 03/09/17 09:15 Calcium 8.3 mg/dL (8.5-10.3) L 03/09/17 09:15 Phosphorus 3.8 mg/dL (2.5-4.6) 03/09/17 09:15 Magnesium 1.5 mg/dL (1.7-2.8) L 03/09/17 09:15 Total Bilirubin 0.7 mg/dL (0.2-1.0) 03/09/17 09:15 AST 15 IU/L (10-42) 03/09/17 09:15 ALT 12 IU/L (10-60) 03/09/17 09:15 Alkaline Phosphatase 30 IU/L (42-121) L 03/09/17 09:15 Total Protein 5.6 g/dL (6.7-8.2) L 03/09/17 09:15 Albumin 2.3 g/dL (3.2-5.5) L 03/09/17 09:15 Globulin 3.3 g/dL (2.1-4.2) 03/09/17 09:15 Albumin/Globulin Ratio 0.7 (1.0-2.2) L 03/09/17 09:15 Blood Type A POSITIVE 03/08/17 11:27 Antibody Screen NEGATIVE 03/08/17 11:27
[2017-03-09] MEDS ORDERED: cloNIDine 0.2 MG PATCH TOP SCH (17:00)
[2017-03-09] MEDS ORDERED: LABETALOL 20 MG/4 ML SYRINGE IVP PRN (17:00)
[2017-03-09] MEDS: fent/BUPIV 2 MCG/0.125% 250 ML EP PRN (23:34)
[2017-03-10 06:16] LABS: BASOPHILS # (AUTO) 0.1 10^3/uL (0.0-0.1); BASOPHILS % (AUTO) 0.8 %; EOSINOPHILS # (AUTO) 0.2 10^3/uL (0.0-0.7); EOSINOPHILS % (AUTO) 2.6 %; HGB - HEMOGLOBIN 10.1 g/dL (12.0-16.0); LYMPHOCYTES # (AUTO) 1.1 10^3/uL (1.5-3.5); LYMPHOCYTES % (AUTO) 16.6 %; MEAN CORPUSCULAR HEMOGLOBIN 30.7 pg (27.0-31.0); MEAN CORPUSCULAR HGB CONC 33.8 g/dL (32.0-36.0); MEAN CORPUSCULAR VOLUME 90.9 fL (81.0-99.0); MEAN PLATELET VOLUME 8.8 fL (7.9-10.8); MONOCYTES # (AUTO) 0.5 10^3/uL (0.0-1.0); MONOCYTES % (AUTO) 7.9 %; NEUTROPHILS # (AUTO) 4.9 10^3/uL (1.5-6.6); NEUTROPHILS % (AUTO) 72.1 %; RED CELL DISTRIBUTION WIDTH 12.7 % (12.0-15.0); UNCORRECTED WHITE BLOOD COUNT 6.8 x10^3/uL; WHITE BLOOD COUNT 6.8 x10^3/uL (4.8-10.8)
[2017-03-10 06:20] LABS: CALCIUM 8.1 mg/dL (8.5-10.3); CREATININE 0.5 mg/dL (0.4-1.0); MAGNESIUM 1.6 mg/dL (1.7-2.8); POTASSIUM 3.6 mmol/L (3.5-5.0)
--- NOTE | 2017-03-10 06:30 | CONSULTATION NOTE ---
DATE OF CONSULTATION: 03/08/2017 00:00:00 REQUESTING PROVIDER: Andre Feliciano DO DATE OF ADMISSION: 03/08/2017 REASON FOR CONSULT: Postop management of medical issues including but not limited to hypertension, Charcot joint, foot ulcers, hypercholesterolemia. The patient is postoperative today from a resection of a bleeding, rectal sigmoid mass via rigid sigmoidoscopy, laparoscopic hand assisted low anterior resection with colorectal stapled anastomosis. BRIEF HISTORY: The patient is a 76-year-old woman with a history of hypertension , hypercholesterolemia. She has a left Charcot joint with chronic foot ulcers. She recently came to [facility] with a GI bleed. She states she has never had a colonoscopy or an EGD before. She underwent endoscopy and colonoscopy, which elucidated erosive gastritis of bleeding mucosa, which was hemostatically controlled. The colonoscopy revealed a large, approximately 6 cm bleeding ulcer and nearly obstructing rectosigmoid lesion with pathology showing a tubulovillous adenoma and high grade dysplasia. The patient had a subsequent CT chest, abdomen, and pelvis scan and found to have a left liver lobe 8 mm hypervascular lesion. She was discharged over the weekend and date scheduled for the surgery, which occurred today, the day of this consultation. REVIEW OF SYSTEMS: She denies any fever, chills, sweats, cough, has had no change in vision, no palpitations, no fainting. She has had no chest pain or irregular heart rate. No sore throat, cough either. The patient had the bloody stools as noted above. She had no vomiting. The patient has had a rash off and on. The rest of the complete review of system negative except as noted above. PAST MEDICAL HISTORY: She has had hypertension, hypercholesterolemia. She has Charcot joint, anxiety, foot ulcers. PAST SURGERIES: She has had an appendectomy, tonsil and adenoidectomy. PERSONAL AND SOCIAL HISTORY: The patient is living in [place] with her . The patient has not smoked cigarettes for many years. She does not drink but 1-2 drinks of alcohol a week. ALLERGIES: 1. HYMENOPTERA STINGS. 2. STRAWBERRIES. MEDICATIONS: 1. Atenolol 50 mg a day. 2. Ambien 10 mg a day. 3. Benicar 20 mg a day. 4. B Complex daily. 5. Clonidine 0.1 mg a day. 6. Amlodipine 5 mg a day. 7. [place]-3 1000 mg a day. 8. Xanax 0.25 mg b.i.d.. 9. Theragran Multivitamin once a day. 10. Protonix 40 mg b.i.d.. 11. Potassium 20 mEq daily. FAMILY HISTORY: Mother had a stroke. Father had diabetes and other family members with diabetes. No cancer noted. PHYSICAL EXAMINATION: VITAL SIGNS: 36.4, 57, 156/74, 16, 100% on 1 liter. EYES: EOMs within normal limits. PERRL. CONSTITUTION: Woman stated age, well-developed, well-nourished, in no acute distress, sleepy postoperatively. Patient in no respiratory distress. MOUTH AND THROAT: Moist mucous membranes. No other pathology. NECK: No lymphadenopathy, no thyromegaly, no bruits, no JVD. CHEST WALL: Nontender. Symmetric. No breast exam done. HEART: Bradycardia. No ectopy noted. LUNGS: Clear, good air movement. ABDOMEN: Incision dressed and some mild tenderness. RECTAL/GENITAL: No rectal or genital exam done at this time. EXTREMITIES: No edema, no cyanosis. SKIN: No suspicious lesions, dermatitis. NEUROLOGIC: Cognitive slow but intact. Motor normal. Sensory normal. Gait was not tested. LABORATORY DATA: She had a white count of 6.8, 11 and 33 hemoglobin and hematocrit, platelets 256. Sodium 142, potassium 3.5, chloride 106, BUN 11, creatinine 0.6, glucose is 103, calcium is 9.1, albumin is 2.3. DIAGNOSES: 1. Rectosigmoid 6 cm cancer, status post resection. 2. Hypertension. 3. Anxiety disorder 4. Gastrointestinal reflux disease/gastritis. DISCUSSION/DECISION MAKING: The patient's postop surgical care will be conducted by Dr. Feliciano and colleagues. Hypertension will be managed by the hospitalist service, as will the anxiety. GERD and gastritis will also be managed as necessary with IV equivalent of home medications. The patient will also get extra attention to pulmonary care to prevent respiratory complications or pneumonia. The patient recommendations from hospitalist service are to follow her blood pressure and her gastric symptoms and give meticulous care to her activity, and ambulation as soon as possible and return of bowel function is expected to be 3-4 days, and to control her blood pressure. Thank you for the opportunity to participate in this delightful lady's care and will follow this patient presently. JOB #: [id number] EXT JOB #:[id number] DULCE
[2017-03-10] MEDS: HEPARIN 5,000 UNIT/ML VIAL SUBQ SCH ×3 (06:35→21:20)
[2017-03-10] MEDS: SODIUM CHLORIDE FLUSH 0.9% 10 ML SYRINGE IVP SCH ×3 (06:36→22:59)
[2017-03-10] MEDS: PANTOPRAZOLE 40 MG VIAL IVP SCH (06:36)
[2017-03-10] MEDS ORDERED: MAGNESIUM SULFATE 2 GRAM 50 ML IV ONE (07:02)
[2017-03-10] MEDS ORDERED: SODIUM CHLORIDE 0.9% 1,000 ML IV ONE (07:02)
[2017-03-10] MEDS ORDERED: SODIUM CHLORIDE 0.9% 500 ML IV ONE (07:13)
--- NOTE | 2017-03-10 07:17 | PROVIDER PROGRESS NOTE ---
Subjective - General Admit Date: 03/08/17 Procedure Date: 03/08/17 Post Op Days: 2 Procedure Performed: Laparoscopic assisted LAR - Review of Systems Wound/Incisions: positive: Dressing dry and intact Drain Type: EVAN Drain Output Description: serosanguenous Approximate mls Output: 30 General: positive: No symptoms HEENT: positive: No symptoms Cardiovascular: positive: No symptoms, Orthopnea Gastrointestinal: positive: Flatus Genitourinary: positive: No symptoms Musculoskeletal: positive: No symptoms Skin: positive: No symptoms Psychiatric: positive: No symptoms All Other Systems: positive: Reviewed and negative - Other Other Information/Narrative: pt seen at bedside. Deneis any pain. using IS. States starting passing flatus. No issues reported Objective - Patient Data Vital Signs: Vital Signs x48h Temp Pulse Resp BP Pulse Ox 03/10/17 04:15 37 C 67 14 160/78 H 92 03/10/17 02:00 166/84 H 03/10/17 01:22 67 165/76 H 03/10/17 01:00 36.9 C 64 18 178/79 H 96 Weight: Weight 03/08/17 03/09/17 03/10/17 23:59 23:59 23:59 Weight (kg) 59.7 kg Intake & Output: Intake and Output Totals x24h 03/08/17 03/09/17 03/10/17 23:59 23:59 23:59 Intake Total 3700 2291 780 Output Total 1250 850 730 Balance 2450 1441 50 - Lab Results Lab Results: 03/10/17 05:24 03/10/17 05:24 Other Lab Results: Lab Results x24hrs 03/10/17 03/10/17 03/09/17 Range/Units 05:24 05:24 09:15 WBC 6.8 (4.8-10.8) x10^3/uL RBC 3.30 L (4.20-5.40) 10^6/uL Hgb 10.1 L (12.0-16.0) g/dL Hct 30.0 L (37.0-47.0) % MCV 90.9 (81.0-99.0) fL MCH 30.7 (27.0-31.0) pg MCHC 33.8 (32.0-36.0) g/dL RDW 12.7 (12.0-15.0) % Plt Count 245 (130-450) 10^3/uL MPV 8.8 (7.9-10.8) fL Neut # 4.9 (1.5-6.6) 10^3/uL Lymph # 1.1 L (1.5-3.5) 10^3/uL [place] # 0.5 (0.0-1.0) 10^3/uL Eos # 0.2 (0.0-0.7) 10^3/uL Baso # 0.1 (0.0-0.1) 10^3/uL Absolute Nucleated RBC 0.00 x10^3/uL Nucleated RBCs 0.0 /100WBC Sodium 136 139 (135-145) mmol/L Potassium 3.6 3.4 L (3.5-5.0) mmol/L Chloride 105 107 (101-111) mmol/L Carbon Dioxide 26 25 (21-32) mmol/L Anion Gap 5.0 L 7.0 (6-13) BUN 7 10 (6-20) mg/dL Creatinine 0.5 0.6 (0.4-1.0) mg/dL Estimated GFR (MDRD) 119 97 (>89) Glucose 114 H 94 (70-100) mg/dL Calcium 8.1 L 8.3 L (8.5-10.3) mg/dL Phosphorus 3.8 (2.5-4.6) mg/dL Magnesium 1.6 L 1.5 L (1.7-2.8) mg/dL Total Bilirubin 0.7 (0.2-1.0) mg/dL AST 15 (10-42) IU/L ALT 12 (10-60) IU/L Alkaline Phosphatase 30 L (42-121) IU/L Total Protein 5.6 L (6.7-8.2) g/dL Albumin 2.3 L (3.2-5.5) g/dL Globulin 3.3 (2.1-4.2) g/dL Albumin/Globulin Ratio 0.7 L (1.0-2.2) //17 Range/Units 09:15 WBC 9.5 (4.8-10.8) x10^3/uL RBC 3.33 L (4.20-5.40) 10^6/uL Hgb 10.2 L (12.0-16.0) g/dL Hct 30.2 L (37.0-47.0) % MCV 90.5 (81.0-99.0) fL MCH 30.5 (27.0-31.0) pg MCHC 33.7 (32.0-36.0) g/dL RDW 12.7 (12.0-15.0) % Plt Count 249 (130-450) 10^3/uL MPV 8.8 (7.9-10.8) fL Neut # 7.7 H (1.5-6.6) 10^3/uL Lymph # 1.2 L (1.5-3.5) 10^3/uL [place] # 0.5 (0.0-1.0) 10^3/uL Eos # 0.0 (0.0-0.7) 10^3/uL Baso # 0.0 (0.0-0.1) 10^3/uL Absolute Nucleated RBC 0.00 x10^3/uL Nucleated RBCs 0.0 /100WBC Sodium (135-145) mmol/L Potassium (3.5-5.0) mmol/L Chloride (101-111) mmol/L Carbon Dioxide (21-32) mmol/L Anion Gap (6-13) BUN (6-20) mg/dL Creatinine (0.4-1.0) mg/dL Estimated GFR (MDRD) (>89) Glucose (70-100) mg/dL Calcium (8.5-10.3) mg/dL Phosphorus (2.5-4.6) mg/dL Magnesium (1.7-2.8) mg/dL Total Bilirubin (0.2-1.0) mg/dL AST (10-42) IU/L ALT (10-60) IU/L Alkaline Phosphatase (42-121) IU/L Total Protein (6.7-8.2) g/dL Albumin (3.2-5.5) g/dL Globulin (2.1-4.2) g/dL Albumin/Globulin Ratio (1.0-2.2) - Current Medications Current Medications: Current Medications Generic Name Dose Route Start Last Admin Trade Name Dustinq PRN Reason Stop Dose Admin Clonidine HCl 1 patch 03/09/17 17:00 03/09/17 17:48 [id number]-Kel-7 TOP 1 patch Q7D LENKA Administration Heparin Sodium (Porcine) 5,000 unit 03/08/17 21:00 03/10/17 06:35 SUBQ 5,000 unit TID LENKA Administration Acetaminophen 100 mls @ 400 mls/hr 03/08/17 17:00 03/09/17 13:55 Ofirmev IV 03/10/17 16:59 400 mls/hr Q6HR PRN Administration PAIN Fentanyl/Bupivacaine/Sodium Chlor 250 mls @ 8 mls/hr 03/08/17 14:44 03/09/17 23 :34 Fent/Bupiv 2 Mcg/0.125% EP 8 mls/hr .[id number] PRN Administration PAIN Protocol Potassium Chloride/Dextrose/Sod Cl 1,000 mls @ 83.333 mls/hr 03/09/17 09:00 04/18 20:46 D5.45ns W/20 Meq Kcl IV 83.333 mls/hr .Q12H LENKA Administration Pantoprazole Sodium 40 mg 03/08/17 17:00 03/10/17 06:36 Protonix IVP 40 mg QDAC LENKA Administration Sodium Chloride 10 ml 03/08/17 11:49 03/09/17 06:34 Normal Saline Flush 0.9% IVP 10 ml PRN PRN Administration NEEDED PER PROVIDER ORDERS Sodium Chloride 10 ml 03/08/17 14:00 03/10/17 06:36 Normal Saline Flush 0.9% IVP 10 ml Q8HR LENKA Administration - Physical Exam Wound/Incisions: positive: Healing well, No drainage General Appearance: positive: No acute distress, Alert Eyes Bilateral: positive: EOMI Respiratory: positive: No respiratory distress Cardiovascular: positive: Regular rate & rhythm Abdomen: positive: Non-tender, Nml bowel sounds, No distention Skin: positive: Warm, Dry Extremities: negative: Pedal edema, Gabby's sign/cords Neurologic/Psychiatric: positive: Oriented x3, CN's nml (2-12) Impression/Plan - Problem List Problem List: 76 yo female s/p Laparoscopic LAR POD#2 NGT removed will advance to sips with chips will advance to clears when ambulating OOB with ambulation Continue epidural today Continue all other medications replacing [facility] Medical team on case appreciated.
[2017-03-10] MEDS: D5.45NS W/20 MEQ KCL 1,000 ML IV SCH ×2 (08:23→20:34)
[2017-03-10] MEDS: POTASSIUM CHLOR 10 MEQ/100 ML 100 ML IV SCH ×3 (09:20→11:39)
--- NOTE | 2017-03-10 16:00 | PROVIDER PROGRESS NOTE ---
Assessment/Plan - Problem List (1) Hypertension Qualifiers: Hypertension type: unspecified secondary hypertension Qualified Code(s): I15.9 - Secondary hypertension, unspecified; I15 - Secondary hypertension Assessment/Plan: She does not have well controlled SBP Will continue to monitor and adjust (2) Malignant tumor of rectosigmoid junction Assessment/Plan: She is post OP day #2 She has some flatus She is on chips now - Current Meds Current Meds: Current Medications Generic Name Dose Route Start Last Admin Trade Name Freq PRN Reason Stop Dose Admin Clonidine HCl 1 patch 03/09/17 17:00 03/09/17 17:48 [id number]-Gan-0 TOP 1 patch Q7D LENKA Administration Heparin Sodium (Porcine) 5,000 unit 03/08/17 21:00 03/10/17 13:30 SUBQ 5,000 unit TID LENKA Administration Acetaminophen 100 mls @ 400 mls/hr 03/08/17 17:00 03/09/17 13:55 Ofirmev IV 03/10/17 16:59 400 mls/hr Q6HR PRN Administration PAIN Fentanyl/Bupivacaine/Sodium Chlor 250 mls @ 8 mls/hr 03/08/17 14:44 03/09/17 23 :34 Fent/Bupiv 2 Mcg/0.125% EP 8 mls/hr .[id number] PRN Administration PAIN Protocol Potassium Chloride/Dextrose/Sod Cl 1,000 mls @ 83.333 mls/hr 03/09/17 09:00 05/19 08:23 D5.45ns W/20 Meq Kcl IV 83.333 mls/hr .Q12H LENKA Administration Labetalol HCl 20 mg 03/09/17 17:00 03/10/17 13:09 Trandate Syringe IVP 20 mg Q4H PRN Administration BLOOD PRESSURE Pantoprazole Sodium 40 mg 03/08/17 17:00 03/10/17 06:36 Protonix IVP 40 mg QDAC LENKA Administration Sodium Chloride 10 ml 03/08/17 11:49 03/09/17 06:34 Normal Saline Flush 0.9% IVP 10 ml PRN PRN Administration NEEDED PER PROVIDER ORDERS Sodium Chloride 10 ml 03/08/17 14:00 03/10/17 13:12 Normal Saline Flush 0.9% IVP Not Given Q8HR LENKA - Lab Result Fish Bone Diagrams: 03/10/17 05:24 03/10/17 05:24 - Additional Planning My Orders: My Active Orders 03/09/17 17:00 Labetalol Syringe [Trandate Syringe] 20 mg IVP Q4H PRN cloNIDine 0.2 MG PATCH [[id number]] 1 patch TOP Q7D Subjective - Subjective Patient Reports: Feeling Better, Resting Comfortably, No Complaints Nursing Reports: No Complaints Objective Vital Signs: Vital Signs - 24 hr 03/09/17 03/09/17 03/09/17 16:28 17:47 21:00 Temperature 37.4 C 37.1 C Heart Rate [ Activity] Heart Rate [ 69 71 75 Brachial] Heart Rate [ Supine] Respiratory 18 18 Rate Blood Pressure [Activity] Blood Pressure 155/72 H [Brachial artery] Blood Pressure 133/67 H 166/71 H [Right Brachial artery] Blood Pressure [Supine] O2 Saturation 93 94 03/10/17 03/10/17 03/10/17 01:00 01:22 02:00 Temperature 36.9 C Heart Rate [ Activity] Heart Rate [ 64 67 Brachial] Heart Rate [ Supine] Respiratory 18 Rate Blood Pressure [Activity] Blood Pressure [Brachial artery] Blood Pressure 178/79 H 165/76 H 166/84 H [Right Brachial artery] Blood Pressure [Supine] O2 Saturation 96 03/10/17 03/10/17 03/10/17 04:15 08:03 12:32 Temperature 37 C 37.1 C 37.2 C Heart Rate [ Activity] Heart Rate [ 67 74 69 Brachial] Heart Rate [ Supine] Respiratory 14 18 16 Rate Blood Pressure [Activity] Blood Pressure [Brachial artery] Blood Pressure 160/78 H 157/73 H 173/78 H [Right Brachial artery] Blood Pressure [Supine] O2 Saturation 92 94 98 03/10/17 03/10/17 03/10/17 13:33 13:40 14:16 Temperature Heart Rate [ 64 Activity] Heart Rate [ 73 Brachial] Heart Rate [ 71 Supine] Respiratory 16 Rate Blood Pressure 193/90 H [Activity] Blood Pressure [Brachial artery] Blood Pressure 168/78 H 162/79 H [Right Brachial artery] Blood Pressure 168/78 H [Supine] O2 Saturation 99 Oxygen O2 Source Nasal cannula I&O (Last 24 Hrs): Intake and Output Totals x24h 03/08/17 03/09/17 03/10/17 23:59 23:59 23:59 Intake Total 3700 2291 2210 Output Total 8258 599 0333 Balance 2450 1441 1045 General: Alert, Cooperative, No acute distress HEENT: PERRLA, EOMI Neck: No JVD, No thyromegaly Neuro: Alert, Speech Slurred Cardiovascular: Regular rate, No murmurs Respiratory: Chest non-tender, No respiratory distress, Breath sounds nml Abdomen: Normal bowel sounds, Soft Skin: No rashes, No breakdown - Results Results: Laboratory Results WBC 6.8 x10^3/uL (4.8-10.8) 03/10/17 05:24 RBC 3.30 10^6/uL (4.20-5.40) L 03/10/17 05:24 Hgb 10.1 g/dL (12.0-16.0) L 03/10/17 05:24 Hct 30.0 % (37.0-47.0) L 03/10/17 05:24 MCV 90.9 fL (81.0-99.0) 03/10/17 05:24 MCH 30.7 pg (27.0-31.0) 03/10/17 05:24 MCHC 33.8 g/dL (32.0-36.0) 03/10/17 05:24 RDW 12.7 % (12.0-15.0) 03/10/17 05:24 Plt Count 245 10^3/uL (130-450) 03/10/17 05:24 MPV 8.8 fL (7.9-10.8) 03/10/17 05:24 Neut # 4.9 10^3/uL (1.5-6.6) 03/10/17 05:24 Lymph # 1.1 10^3/uL (1.5-3.5) L 03/10/17 05:24 [place] # 0.5 10^3/uL (0.0-1.0) 03/10/17 05:24 Eos # 0.2 10^3/uL (0.0-0.7) 03/10/17 05:24 Baso # 0.1 10^3/uL (0.0-0.1) 03/10/17 05:24 Absolute Nucleated RBC 0.00 x10^3/uL 03/10/17 05:24 Nucleated RBCs 0.0 /100WBC 03/10/17 05:24 Sodium 136 mmol/L (135-145) 03/10/17 05:24 Potassium 3.6 mmol/L (3.5-5.0) 03/10/17 05:24 Chloride 105 mmol/L (101-111) 03/10/17 05:24 Carbon Dioxide 26 mmol/L (21-32) 03/10/17 05:24 Anion Gap 5.0 (6-13) L 03/10/17 05:24 BUN 7 mg/dL (6-20) 03/10/17 05:24 Creatinine 0.5 mg/dL (0.4-1.0) 03/10/17 05:24 Estimated GFR (MDRD) 119 (>89) 03/10/17 05:24 Glucose 114 mg/dL (70-100) H 03/10/17 05:24 Calcium 8.1 mg/dL (8.5-10.3) L 03/10/17 05:24 Phosphorus 3.8 mg/dL (2.5-4.6) 03/09/17 09:15 Magnesium 1.6 mg/dL (1.7-2.8) L 03/10/17 05:24 Total Bilirubin 0.7 mg/dL (0.2-1.0) 03/09/17 09:15 AST 15 IU/L (10-42) 03/09/17 09:15 ALT 12 IU/L (10-60) 03/09/17 09:15 Alkaline Phosphatase 30 IU/L (42-121) L 03/09/17 09:15 Total Protein 5.6 g/dL (6.7-8.2) L 03/09/17 09:15 Albumin 2.3 g/dL (3.2-5.5) L 03/09/17 09:15 Globulin 3.3 g/dL (2.1-4.2) 03/09/17 09:15 Albumin/Globulin Ratio 0.7 (1.0-2.2) L 03/09/17 09:15 Blood Type A POSITIVE 03/08/17 11:27 Antibody Screen NEGATIVE 03/08/17 11:27
[2017-03-11] MEDS: SODIUM CHLORIDE FLUSH 0.9% 10 ML SYRINGE IVP SCH ×4 (06:17→21:42)
[2017-03-11] MEDS: HEPARIN 5,000 UNIT/ML VIAL SUBQ SCH ×3 (06:28→21:41)
[2017-03-11] MEDS: fent/BUPIV 2 MCG/0.125% 250 ML EP PRN (06:29)
[2017-03-11 06:33] LABS: BASOPHILS % (AUTO) 0.4 %; EOSINOPHILS # (AUTO) 0.1 10^3/uL (0.0-0.7); EOSINOPHILS % (AUTO) 2.3 %; HCT - HEMATOCRIT 28.4 % (37.0-47.0); HGB - HEMOGLOBIN 9.5 g/dL (12.0-16.0); LYMPHOCYTES % (AUTO) 16.8 %; MEAN CORPUSCULAR HEMOGLOBIN 30.5 pg (27.0-31.0); MEAN CORPUSCULAR HGB CONC 33.5 g/dL (32.0-36.0); MEAN CORPUSCULAR VOLUME 90.9 fL (81.0-99.0); MEAN PLATELET VOLUME 8.6 fL (7.9-10.8); MONOCYTES # (AUTO) 0.6 10^3/uL (0.0-1.0); MONOCYTES % (AUTO) 10.9 %; NEUTROPHILS # (AUTO) 4.1 10^3/uL (1.5-6.6); NEUTROPHILS % (AUTO) 69.6 %; NUCLEATED RED BLOOD CELLS AUTO 0.1 /100WBC; RED BLOOD COUNT 3.12 10^6/uL (4.20-5.40); RED CELL DISTRIBUTION WIDTH 12.5 % (12.0-15.0); UNCORRECTED WHITE BLOOD COUNT 5.9 x10^3/uL; WHITE BLOOD COUNT 5.9 x10^3/uL (4.8-10.8)
[2017-03-11 06:36] LABS: CREATININE 0.5 mg/dL (0.4-1.0)
[2017-03-11] MEDS: D5.45NS W/20 MEQ KCL 1,000 ML IV SCH (09:01)
[2017-03-11] MEDS: PANTOPRAZOLE 40 MG VIAL IVP SCH (09:05)
[2017-03-11] MEDS ORDERED: D5.45NS W/20 MEQ KCL 1,000 ML IV SCH (09:37)
--- NOTE | 2017-03-11 09:41 | PROVIDER PROGRESS NOTE ---
Subjective - General Admit Date: 03/08/17 Procedure Date: 03/08/17 Post Op Days: 3 Procedure Performed: Laparoscopic assisted LAR - Review of Systems Wound/Incisions: positive: Healing well, No drainage Drain Type: EVAN Drain Output Description: serosanguenous Approximate mls Output: 20 General: positive: No symptoms HEENT: positive: No symptoms Cardiovascular: positive: No symptoms, Orthopnea Gastrointestinal: positive: Flatus Genitourinary: positive: No symptoms Musculoskeletal: positive: No symptoms Skin: positive: No symptoms Psychiatric: positive: No symptoms All Other Systems: positive: Reviewed and negative - Other Other Information/Narrative: Patient seen at bedside. No complaints. getting OOB to chair and some ambulation. Using IS. Started having flatus late yesterday. Objective - Patient Data Vital Signs: Vital Signs x48h Temp Pulse Resp BP Pulse Ox 03/11/17 09:00 37.5 C 98 16 174/81 H 93 03/11/17 04:35 36.9 C 87 16 151/70 H 94 Intake & Output: Intake and Output Totals x24h 03/09/17 03/10/17 03/11/17 23:59 23:59 23:59 Intake Total 2291 2910 450 Output Total 850 1665 770 Balance 1441 1245 -320 - Lab Results Lab Results: 03/11/17 05:46 03/11/17 05:46 Other Lab Results: Lab Results x24hrs 03/11/17 03/11/17 Range/Units 05:46 05:46 WBC 5.9 (4.8-10.8) x10^3/uL RBC 3.12 L (4.20-5.40) 10^6/uL Hgb 9.5 L (12.0-16.0) g/dL Hct 28.4 L (37.0-47.0) % MCV 90.9 (81.0-99.0) fL MCH 30.5 (27.0-31.0) pg MCHC 33.5 (32.0-36.0) g/dL RDW 12.5 (12.0-15.0) % Plt Count 219 (130-450) 10^3/uL MPV 8.6 (7.9-10.8) fL Neut # 4.1 (1.5-6.6) 10^3/uL Lymph # 1.0 L (1.5-3.5) 10^3/uL [place] # 0.6 (0.0-1.0) 10^3/uL Eos # 0.1 (0.0-0.7) 10^3/uL Baso # 0.0 (0.0-0.1) 10^3/uL Absolute Nucleated RBC 0.00 x10^3/uL Nucleated RBCs 0.1 /100WBC Sodium 135 (135-145) mmol/L Potassium 4.0 (3.5-5.0) mmol/L Chloride 104 (101-111) mmol/L Carbon Dioxide 26 (21-32) mmol/L Anion Gap 5.0 L (6-13) BUN 5 L (6-20) mg/dL Creatinine 0.5 (0.4-1.0) mg/dL Estimated GFR (MDRD) 119 (>89) Glucose 118 H (70-100) mg/dL Calcium 8.0 L (8.5-10.3) mg/dL - Current Medications Current Medications: Current Medications Generic Name Dose Route Start Last Admin Trade Name Freq PRN Reason Stop Dose Admin Clonidine HCl 1 patch 03/09/17 17:00 03/09/17 17:48 Xewzhhak-Ews-3 TOP 1 patch Q7D LENKA Administration Heparin Sodium (Porcine) 5,000 unit 03/08/17 21:00 03/11/17 06:28 SUBQ 5,000 unit TID LENKA Administration Fentanyl/Bupivacaine/Sodium Chlor 250 mls @ 8 mls/hr 03/08/17 14:44 03/11/17 06 :29 Fent/Bupiv 2 Mcg/0.125% EP 8 mls/hr .[id number] PRN Administration PAIN Protocol Labetalol HCl 20 mg 03/09/17 17:00 03/10/17 13:09 Trandate Syringe IVP 20 mg Q4H PRN Administration BLOOD PRESSURE Pantoprazole Sodium 40 mg 03/08/17 17:00 03/11/17 09:05 Protonix IVP 40 mg QDAC LENKA Administration Sodium Chloride 10 ml 03/08/17 11:49 03/09/17 06:34 Normal Saline Flush 0.9% IVP 10 ml PRN PRN Administration NEEDED PER PROVIDER ORDERS Sodium Chloride 10 ml 03/08/17 14:00 03/11/17 09:04 Normal Saline Flush 0.9% IVP 10 ml Q8HR LENKA Administration - Physical Exam Wound/Incisions: positive: Healing well, No drainage. negative: Erythema General Appearance: positive: No acute distress Eyes Bilateral: positive: EOMI ENT: positive: No signs of dehydration Respiratory: positive: Breath sounds nml Cardiovascular: positive: Regular rate & rhythm Abdomen: negative: Tenderness (+bs, soft, NT, ND. 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
[2017-03-11] MEDS: MULTIVITAMIN TABLET PO SCH (10:51)
--- NOTE | 2017-03-11 11:34 | PROVIDER PROGRESS NOTE ---
Assessment/Plan - Problem List (1) Hypertension Qualifiers: Hypertension type: unspecified secondary hypertension Qualified Code(s): I15.9 - Secondary hypertension, unspecified; I15 - Secondary hypertension Assessment/Plan: SBP is mostly in the 150s today. Will continue to monitor Will need outpt med titration. (2) Malignant tumor of rectosigmoid junction Assessment/Plan: She is progressing. She had a clear diet this am and tolerated it well. - Current Meds Current Meds: Current Medications Generic Name Dose Route Start Last Admin Trade Name Freq PRN Reason Stop Dose Admin Clonidine HCl 1 patch 03/09/17 17:00 03/09/17 17:48 Rdajuqut-Nwj-0 TOP 1 patch Q7D LENKA Administration Heparin Sodium (Porcine) 5,000 unit 03/08/17 21:00 03/11/17 06:28 SUBQ 5,000 unit TID LENKA Administration Fentanyl/Bupivacaine/Sodium Chlor 250 mls @ 8 mls/hr 03/08/17 14:44 03/11/17 06 :29 Fent/Bupiv 2 Mcg/0.125% EP 8 mls/hr .[id number] PRN Administration PAIN Protocol Labetalol HCl 20 mg 03/09/17 17:00 03/10/17 13:09 Trandate Syringe IVP 20 mg Q4H PRN Administration BLOOD PRESSURE Multivitamins 1 tab 03/11/17 10:00 03/11/17 10:51 Theragran PO 1 tab DAILYWM LENKA Administration Pantoprazole Sodium 40 mg 03/08/17 17:00 03/11/17 09:05 Protonix IVP 40 mg QDAC LENKA Administration Sodium Chloride 10 ml 03/08/17 11:49 03/09/17 06:34 Normal Saline Flush 0.9% IVP 10 ml PRN PRN Administration NEEDED PER PROVIDER ORDERS Sodium Chloride 10 ml 03/08/17 14:00 03/11/17 09:04 Normal Saline Flush 0.9% IVP 10 ml Q8HR LENKA Administration - Lab Result Fish Bone Diagrams: 03/11/17 05:46 03/11/17 05:46 Subjective - Subjective Patient Reports: Feeling Better, Resting Comfortably Nursing Reports: No Complaints Objective Vital Signs: Vital Signs - 24 hr 03/10/17 03/10/17 03/10/17 12:32 13:33 13:40 Temperature 37.2 C Heart Rate [ 64 Activity] Heart Rate [ 69 Brachial] Heart Rate [ 71 Supine] Respiratory 16 Rate Blood Pressure 193/90 H [Activity] Blood Pressure 173/78 H 168/78 H [Right Brachial artery] Blood Pressure 168/78 H [Supine] O2 Saturation 98 03/10/17 03/10/17 03/10/17 14:16 17:04 18:35 Temperature 37.2 C Heart Rate [ Activity] Heart Rate [ 73 83 Brachial] Heart Rate [ Supine] Respiratory 16 18 Rate Blood Pressure [Activity] Blood Pressure 162/79 H 177/74 H 152/70 H [Right Brachial artery] Blood Pressure [Supine] O2 Saturation 99 95 03/10/17 03/10/17 03/11/17 21:30 23:42 04:35 Temperature 37.1 C 37.1 C 36.9 C Heart Rate [ Activity] Heart Rate [ 87 82 87 Brachial] Heart Rate [ Supine] Respiratory 18 16 16 Rate Blood Pressure [Activity] Blood Pressure 157/83 H 153/75 H 151/70 H [Right Brachial artery] Blood Pressure [Supine] O2 Saturation 94 93 94 03/11/17 09:00 Temperature 37.5 C Heart Rate [ Activity] Heart Rate [ 98 Brachial] Heart Rate [ Supine] Respiratory 16 Rate Blood Pressure [Activity] Blood Pressure 174/81 H [Right Brachial artery] Blood Pressure [Supine] O2 Saturation 93 Oxygen O2 Source Room air I&O (Last 24 Hrs): Intake and Output Totals x24h 03/09/17 03/10/17 03/11/17 23:59 23:59 23:59 Intake Total 2291 2910 1482 Output Total 850 1665 770 Balance 1441 1245 712 General: Alert, Oriented x3, Cooperative HEENT: PERRLA, EOMI Neck: No JVD, No thyromegaly Neuro: Alert, Oriented Times 3 Cardiovascular: Regular rate, No murmurs Respiratory: No respiratory distress, Breath sounds nml Abdomen: Normal bowel sounds, Soft, No tenderness Extremities: No cyanosis, No edema - Results Results: Laboratory Results WBC 5.9 x10^3/uL (4.8-10.8) 03/11/17 05:46 RBC 3.12 10^6/uL (4.20-5.40) L 03/11/17 05:46 Hgb 9.5 g/dL (12.0-16.0) L 03/11/17 05:46 Hct 28.4 % (37.0-47.0) L 03/11/17 05:46 MCV 90.9 fL (81.0-99.0) 03/11/17 05:46 MCH 30.5 pg (27.0-31.0) 03/11/17 05:46 MCHC 33.5 g/dL (32.0-36.0) 03/11/17 05:46 RDW 12.5 % (12.0-15.0) 03/11/17 05:46 Plt Count 219 10^3/uL (130-450) 03/11/17 05:46 MPV 8.6 fL (7.9-10.8) 03/11/17 05:46 Neut # 4.1 10^3/uL (1.5-6.6) 03/11/17 05:46 Lymph # 1.0 10^3/uL (1.5-3.5) L 03/11/17 05:46 [place] # 0.6 10^3/uL (0.0-1.0) 03/11/17 05:46 Eos # 0.1 10^3/uL (0.0-0.7) 03/11/17 05:46 Baso # 0.0 10^3/uL (0.0-0.1) 03/11/17 05:46 Absolute Nucleated RBC 0.00 x10^3/uL 03/11/17 05:46 Nucleated RBCs 0.1 /100WBC 03/11/17 05:46 Sodium 135 mmol/L (135-145) 03/11/17 05:46 Potassium 4.0 mmol/L (3.5-5.0) 03/11/17 05:46 Chloride 104 mmol/L (101-111) 03/11/17 05:46 Carbon Dioxide 26 mmol/L (21-32) 03/11/17 05:46 Anion Gap 5.0 (6-13) L 03/11/17 05:46 BUN 5 mg/dL (6-20) L 03/11/17 05:46 Creatinine 0.5 mg/dL (0.4-1.0) 03/11/17 05:46 Estimated GFR (MDRD) 119 (>89) 03/11/17 05:46 Glucose 118 mg/dL (70-100) H 03/11/17 05:46 Calcium 8.0 mg/dL (8.5-10.3) L 03/11/17 05:46 Phosphorus 3.8 mg/dL (2.5-4.6) 03/09/17 09:15 Magnesium 1.6 mg/dL (1.7-2.8) L 03/10/17 05:24 Total Bilirubin 0.7 mg/dL (0.2-1.0) 03/09/17 09:15 AST 15 IU/L (10-42) 03/09/17 09:15 ALT 12 IU/L (10-60) 03/09/17 09:15 Alkaline Phosphatase 30 IU/L (42-121) L 03/09/17 09:15 Total Protein 5.6 g/dL (6.7-8.2) L 03/09/17 09:15 Albumin 2.3 g/dL (3.2-5.5) L 03/09/17 09:15 Globulin 3.3 g/dL (2.1-4.2) 03/09/17 09:15 Albumin/Globulin Ratio 0.7 (1.0-2.2) L 03/09/17 09:15 Blood Type A POSITIVE 03/08/17 11:27 Antibody Screen NEGATIVE 03/08/17 11:27
[2017-03-12] MEDS ORDERED: ACETAMINOPHEN 325 MG TABLET PO PRN (05:37)
[2017-03-12 05:51] LABS: BASOPHILS % (AUTO) 0.4 %; CALCIUM 8.1 mg/dL (8.5-10.3); CREATININE 0.5 mg/dL (0.4-1.0); EOSINOPHILS # (AUTO) 0.1 10^3/uL (0.0-0.7); EOSINOPHILS % (AUTO) 1.3 %; HCT - HEMATOCRIT 27.5 % (37.0-47.0); HGB - HEMOGLOBIN 9.3 g/dL (12.0-16.0); LYMPHOCYTES # (AUTO) 1.2 10^3/uL (1.5-3.5); LYMPHOCYTES % (AUTO) 21.1 %; MEAN CORPUSCULAR HEMOGLOBIN 30.6 pg (27.0-31.0); MEAN CORPUSCULAR HGB CONC 33.9 g/dL (32.0-36.0); MEAN CORPUSCULAR VOLUME 90.3 fL (81.0-99.0); MEAN PLATELET VOLUME 8.4 fL (7.9-10.8); MONOCYTES # (AUTO) 0.7 10^3/uL (0.0-1.0); MONOCYTES % (AUTO) 12.2 %; NEUTROPHILS # (AUTO) 3.7 10^3/uL (1.5-6.6); POTASSIUM 3.6 mmol/L (3.5-5.0); RED BLOOD COUNT 3.04 10^6/uL (4.20-5.40); RED CELL DISTRIBUTION WIDTH 12.6 % (12.0-15.0); UNCORRECTED WHITE BLOOD COUNT 5.7 x10^3/uL; WHITE BLOOD COUNT 5.7 x10^3/uL (4.8-10.8)
[2017-03-12] MEDS: SODIUM CHLORIDE FLUSH 0.9% 10 ML SYRINGE IVP SCH ×3 (05:57→21:45)
[2017-03-12] MEDS: PANTOPRAZOLE 40 MG VIAL IVP SCH (06:18)
[2017-03-12] MEDS: HEPARIN 5,000 UNIT/ML VIAL SUBQ SCH (06:30)
--- NOTE | 2017-03-12 08:04 | PROVIDER PROGRESS NOTE ---
Subjective - General Admit Date: 03/08/17 Procedure Date: 03/08/17 Post Op Days: 4 Procedure Performed: Laparoscopic assisted LAR - Review of Systems Wound/Incisions: positive: Healing well, No drainage. negative: Erythema General: positive: No symptoms HEENT: positive: No symptoms Pulmonary: positive: No symptoms Cardiovascular: positive: No symptoms, Orthopnea Gastrointestinal: positive: Flatus Genitourinary: positive: No symptoms Musculoskeletal: positive: No symptoms Skin: positive: No symptoms Psychiatric: positive: No symptoms All Other Systems: positive: Reviewed and negative Objective - Patient Data Reviewed Vital Signs: Yes Vital Signs: Vital Signs x48h Temp Pulse Resp BP Pulse Ox 03/12/17 06:25 37 C 03/12/17 05:30 38.1 C H 81 16 121/73 95 03/12/17 00:30 37.1 C 94 16 114/63 93 Intake & Output: Intake and Output Totals x24h 03/10/17 03/11/17 03/12/17 23:59 23:59 23:59 Intake Total 2910 2342 Output Total 1665 2320 300 Balance 1245 22 -300 - Lab Results Lab Results: 03/12/17 05:10 03/12/17 05:10 Other Lab Results: Lab Results x24hrs 03/12/17 03/12/17 Range/Units 05:10 05:10 WBC 5.7 (4.8-10.8) x10^3/uL RBC 3.04 L (4.20-5.40) 10^6/uL Hgb 9.3 L (12.0-16.0) g/dL Hct 27.5 L (37.0-47.0) % MCV 90.3 (81.0-99.0) fL MCH 30.6 (27.0-31.0) pg MCHC 33.9 (32.0-36.0) g/dL RDW 12.6 (12.0-15.0) % Plt Count 214 (130-450) 10^3/uL MPV 8.4 (7.9-10.8) fL Neut # 3.7 (1.5-6.6) 10^3/uL Lymph # 1.2 L (1.5-3.5) 10^3/uL [place] # 0.7 (0.0-1.0) 10^3/uL Eos # 0.1 (0.0-0.7) 10^3/uL Baso # 0.0 (0.0-0.1) 10^3/uL Absolute Nucleated RBC 0.00 x10^3/uL Nucleated RBCs 0.0 /100WBC Sodium 136 (135-145) mmol/L Potassium 3.6 (3.5-5.0) mmol/L Chloride 103 (101-111) mmol/L Carbon Dioxide 26 (21-32) mmol/L Anion Gap 7.0 (6-13) BUN 6 (6-20) mg/dL Creatinine 0.5 (0.4-1.0) mg/dL Estimated GFR (MDRD) 119 (>89) Glucose 102 H (70-100) mg/dL Calcium 8.1 L (8.5-10.3) mg/dL - Current Medications Current Medications: Current Medications Generic Name Dose Route Start Last Admin Trade Name Freq PRN Reason Stop Dose Admin Clonidine HCl 1 patch 03/09/17 17:00 03/09/17 17:48 Fyrprtja-Euo-2 TOP 1 patch Q7D LENKA Administration Heparin Sodium (Porcine) 5,000 unit 03/08/17 21:00 03/12/17 06:30 SUBQ 5,000 unit TID LENKA Administration Fentanyl/Bupivacaine/Sodium Chlor 250 mls @ 8 mls/hr 03/08/17 14:44 03/11/17 06 :29 Fent/Bupiv 2 Mcg/0.125% EP 8 mls/hr .[id number] PRN Administration PAIN Protocol Labetalol HCl 20 mg 03/09/17 17:00 03/10/17 13:09 Trandate Syringe IVP 20 mg Q4H PRN Administration BLOOD PRESSURE Multivitamins 1 tab 03/11/17 10:00 03/11/17 10:51 Theragran PO 1 tab DAILYWM LENKA Administration Pantoprazole Sodium 40 mg 03/08/17 17:00 03/12/17 06:18 Protonix IVP 40 mg QDAC LENKA Administration Sodium Chloride 10 ml 03/08/17 11:49 03/09/17 06:34 Normal Saline Flush 0.9% IVP 10 ml PRN PRN Administration NEEDED PER PROVIDER ORDERS Sodium Chloride 10 ml 03/08/17 14:00 03/12/17 05:57 Normal Saline Flush 0.9% IVP 10 ml Q8HR LENKA Administration - Physical Exam Wound/Incisions: positive: Healing well, Dressing dry and intact General Appearance: positive: No acute distress Eyes Bilateral: positive: No lid inflammation, Conjunctivae nml, No scleral icterus Neck: positive: Trachea midline Respiratory: positive: Chest non-tender, No respiratory distress, Breath sounds nml Cardiovascular: positive: Regular rate & rhythm Abdomen: positive: Nml bowel sounds, No distention, Tenderness (Minimal incisional.) Skin: positive: Color nml Extremities: positive: Non-tender Neurologic/Psychiatric: positive: Oriented x3 Impression/Plan - Problem List Problem List: Status post laparoscopic LAR resection for cancer with lymph nodes negative. General diet. Epidural out. Oral pain meds. Shower today. Increase activity evaluate to make sure it is safe for patient to go home.
[2017-03-12] MEDS: MULTIVITAMIN TABLET PO SCH (09:28)
--- NOTE | 2017-03-12 14:10 | PROVIDER PROGRESS NOTE ---
Assessment/Plan - Problem List (1) Hypertension Qualifiers: Hypertension type: unspecified secondary hypertension Qualified Code(s): I15.9 - Secondary hypertension, unspecified; I15 - Secondary hypertension Assessment/Plan: He is doing better with SBP She is going to continue with present meds. Will continue to monitor. (2) Malignant tumor of rectosigmoid junction Assessment/Plan: Estefanía is now tolerating food. She had her epidural out and she had her Friedman out. She should be able to go home tomorrow. - Current Meds Current Meds: Current Medications Generic Name Dose Route Start Last Admin Trade Name Freq PRN Reason Stop Dose Admin Clonidine HCl 1 patch 03/09/17 17:00 03/09/17 17:48 [id number]-Rjs-2 TOP 1 patch Q7D LENKA Administration Fentanyl/Bupivacaine/Sodium Chlor 250 mls @ 8 mls/hr 03/08/17 14:44 03/11/17 06 :29 Fent/Bupiv 2 Mcg/0.125% EP 8 mls/hr .[id number] PRN Administration PAIN Protocol Labetalol HCl 20 mg 03/09/17 17:00 03/10/17 13:09 Trandate Syringe IVP 20 mg Q4H PRN Administration BLOOD PRESSURE Multivitamins 1 tab 03/11/17 10:00 03/12/17 09:28 Theragran PO 1 tab DAILYWM LENKA Administration Pantoprazole Sodium 40 mg 03/08/17 17:00 03/12/17 06:18 Protonix IVP 40 mg QDAC LENKA Administration Sodium Chloride 10 ml 03/08/17 11:49 03/09/17 06:34 Normal Saline Flush 0.9% IVP 10 ml PRN PRN Administration NEEDED PER PROVIDER ORDERS Sodium Chloride 10 ml 03/08/17 14:00 03/12/17 05:57 Normal Saline Flush 0.9% IVP 10 ml Q8HR LENKA Administration - Lab Result Fish Bone Diagrams: 03/12/17 05:10 03/12/17 05:10 Subjective - Subjective Patient Reports: Feeling Better, Resting Comfortably, No Complaints Nursing Reports: No Complaints Objective Vital Signs: Vital Signs - 24 hr 03/11/17 03/11/17 03/11/17 16:30 20:10 22:00 Temperature 38.7 C H 37.7 C H 36.6 C Heart Rate [ 107 H 98 Brachial] Respiratory 18 16 Rate Blood Pressure 145/85 H 128/75 [Right Brachial artery] O2 Saturation 93 93 03/12/17 03/12/17 03/12/17 00:30 05:30 06:25 Temperature 37.1 C 38.1 C H 37 C Heart Rate [ 94 81 Brachial] Respiratory 16 16 Rate Blood Pressure 114/63 121/73 [Right Brachial artery] O2 Saturation 93 95 03/12/17 08:33 Temperature 37.2 C Heart Rate [ 88 Brachial] Respiratory 16 Rate Blood Pressure 133/77 H [Right Brachial artery] O2 Saturation 93 Oxygen O2 Source Room air I&O (Last 24 Hrs): Intake and Output Totals x24h 03/10/17 03/11/17 03/12/17 23:59 23:59 23:59 Intake Total 2910 2342 Output Total 1665 2320 300 Balance 1245 22 -300 General: Alert HEENT: PERRLA, EOMI Neck: Supple, No JVD, No thyromegaly Neuro: Alert Cardiovascular: Regular rate, No murmurs Respiratory: Chest non-tender, Breath sounds nml, Wheezes Abdomen: Soft, No tenderness Extremities: No clubbing, No cyanosis, Normal pulses - Results Results: Laboratory Results WBC 5.7 x10^3/uL (4.8-10.8) 03/12/17 05:10 RBC 3.04 10^6/uL (4.20-5.40) L 03/12/17 05:10 Hgb 9.3 g/dL (12.0-16.0) L 03/12/17 05:10 Hct 27.5 % (37.0-47.0) L 03/12/17 05:10 MCV 90.3 fL (81.0-99.0) 03/12/17 05:10 MCH 30.6 pg (27.0-31.0) 03/12/17 05:10 MCHC 33.9 g/dL (32.0-36.0) 03/12/17 05:10 RDW 12.6 % (12.0-15.0) 03/12/17 05:10 Plt Count 214 10^3/uL (130-450) 03/12/17 05:10 MPV 8.4 fL (7.9-10.8) 03/12/17 05:10 Neut # 3.7 10^3/uL (1.5-6.6) 03/12/17 05:10 Lymph # 1.2 10^3/uL (1.5-3.5) L 03/12/17 05:10 [place] # 0.7 10^3/uL (0.0-1.0) 03/12/17 05:10 Eos # 0.1 10^3/uL (0.0-0.7) 03/12/17 05:10 Baso # 0.0 10^3/uL (0.0-0.1) 03/12/17 05:10 Absolute Nucleated RBC 0.00 x10^3/uL 03/12/17 05:10 Nucleated RBCs 0.0 /100WBC 03/12/17 05:10 Sodium 136 mmol/L (135-145) 03/12/17 05:10 Potassium 3.6 mmol/L (3.5-5.0) 03/12/17 05:10 Chloride 103 mmol/L (101-111) 03/12/17 05:10 Carbon Dioxide 26 mmol/L (21-32) 03/12/17 05:10 Anion Gap 7.0 (6-13) 03/12/17 05:10 BUN 6 mg/dL (6-20) 03/12/17 05:10 Creatinine 0.5 mg/dL (0.4-1.0) 03/12/17 05:10 Estimated GFR (MDRD) 119 (>89) 03/12/17 05:10 Glucose 102 mg/dL (70-100) H 03/12/17 05:10 Calcium 8.1 mg/dL (8.5-10.3) L 03/12/17 05:10 Phosphorus 3.8 mg/dL (2.5-4.6) 03/09/17 09:15 Magnesium 1.6 mg/dL (1.7-2.8) L 03/10/17 05:24 Total Bilirubin 0.7 mg/dL (0.2-1.0) 03/09/17 09:15 AST 15 IU/L (10-42) 03/09/17 09:15 ALT 12 IU/L (10-60) 03/09/17 09:15 Alkaline Phosphatase 30 IU/L (42-121) L 03/09/17 09:15 Total Protein 5.6 g/dL (6.7-8.2) L 03/09/17 09:15 Albumin 2.3 g/dL (3.2-5.5) L 03/09/17 09:15 Globulin 3.3 g/dL (2.1-4.2) 03/09/17 09:15 Albumin/Globulin Ratio 0.7 (1.0-2.2) L 03/09/17 09:15 Blood Type A POSITIVE 03/08/17 11:27 Antibody Screen NEGATIVE 03/08/17 11:27
[2017-03-12] MEDS: HYDROcod/ACETAM 5/325 MG TABLET PO PRN (17:46)
[2017-03-12] MEDS ORDERED: LABETALOL 20 MG/4 ML SYRINGE IVP PRN (18:18)
[2017-03-12] MEDS ORDERED: MAGNESIUM SULFATE 2 GRAM 50 ML IV ONE (22:28)
[2017-03-13] MEDS: SODIUM CHLORIDE FLUSH 0.9% 10 ML SYRINGE IVP PRN (00:06)
[2017-03-13] MEDS: HYDROcod/ACETAM 5/325 MG TABLET PO PRN (04:19)
[2017-03-13] MEDS: SODIUM CHLORIDE 0.9% 1,000 ML IV SCH ×2 (04:47→14:28)
[2017-03-13] MEDS: SODIUM CHLORIDE FLUSH 0.9% 10 ML SYRINGE IVP SCH ×2 (07:00→14:28)
[2017-03-13] MEDS: PANTOPRAZOLE 40 MG VIAL IVP SCH (07:01)
[2017-03-13] MEDS: MULTIVITAMIN TABLET PO SCH (10:02)
[2017-03-13 14:08] VITALS: BP 176/82
[2017-03-13] MEDS ORDERED: MIN OIL/DIMETHICON/COCONUT OIL 92 GM TUBE TOP ONE (14:18)
--- NOTE | 2017-03-13 14:25 | PROVIDER PROGRESS NOTE ---
Subjective - General Admit Date: 03/08/17 Procedure Date: 03/08/17 Post Op Days: 5 Procedure Performed: Laparoscopic assisted LAR - Review of Systems Wound/Incisions: positive: Healing well, Dressing dry and intact General: positive: No symptoms HEENT: positive: No symptoms Pulmonary: positive: No symptoms Cardiovascular: positive: No symptoms, Orthopnea Gastrointestinal: positive: No symptoms Genitourinary: positive: No symptoms Musculoskeletal: positive: No symptoms Skin: positive: No symptoms Psychiatric: positive: No symptoms All Other Systems: positive: Reviewed and negative Objective - Patient Data Reviewed Vital Signs: Yes Vital Signs: Vital Signs x48h Temp Pulse Resp BP Pulse Ox 03/13/17 14:00 36.6 C 87 18 176/82 H 98 03/13/17 08:46 36.5 C 74 16 153/72 H 94 Intake & Output: Intake and Output Totals x24h 03/11/17 03/12/17 03/13/17 23:59 23:59 23:59 Intake Total 2342 974 1162 Output Total 2320 600 350 Balance 22 374 812 - Lab Results Lab Results: 03/12/17 05:10 03/12/17 05:10 Other Lab Results: Lab Results x24hrs 03/12/17 Range/Units 16:35 Magnesium 1.6 L (1.7-2.8) mg/dL - Current Medications Current Medications: Current Medications Generic Name Dose Route Start Last Admin Trade Name Freq PRN Reason Stop Dose Admin Acetaminophen/Hydrocodone Bitart 1 tab 03/12/17 08:06 03/13/17 04:19 [place] 5/325 PO 1 tab Q4HR PRN Administration PAIN Clonidine HCl 1 patch 03/09/17 17:00 03/09/17 17:48 Gaqplobb-Hee-5 TOP 1 patch Q7D LENKA Administration Fentanyl/Bupivacaine/Sodium Chlor 250 mls @ 8 mls/hr 03/08/17 14:44 03/11/17 06 :29 Fent/Bupiv 2 Mcg/0.125% EP 8 mls/hr .[id number] PRN Administration PAIN Protocol Sodium Chloride 1,000 mls @ 125 mls/hr 03/13/17 05:00 03/13/17 04:47 Normal Saline 0.9% IV 125 mls/hr .Q8H LENKA Administration Multivitamins 1 tab 03/11/17 10:00 03/13/17 10:02 Theragran PO 1 tab DAILYWM LENKA Administration Pantoprazole Sodium 40 mg 03/08/17 17:00 03/13/17 07:01 Protonix IVP 40 mg QDAC LENKA Administration Sodium Chloride 10 ml 03/08/17 11:49 03/13/17 00:06 Normal Saline Flush 0.9% IVP 10 ml PRN PRN Administration NEEDED PER PROVIDER ORDERS Sodium Chloride 10 ml 03/08/17 14:00 03/13/17 07:00 Normal Saline Flush 0.9% IVP 10 ml Q8HR LENKA Administration - Physical Exam Wound/Incisions: positive: Healing well (Slight blister due to tape. No infection.) General Appearance: positive: No acute distress Eyes Bilateral: positive: No lid inflammation, Conjunctivae nml, No scleral icterus ENT: positive: No signs of dehydration Neck: positive: Trachea midline Respiratory: positive: Chest non-tender Cardiovascular: positive: Regular rate & rhythm, Systolic murmur Abdomen: positive: Nml bowel sounds, Tenderness (Normal incisional tenderness.) Skin: positive: Color nml Extremities: positive: Nml appearance Neurologic/Psychiatric: positive: Oriented x3 Impression/Plan - Problem List Problem List: Status post laparoscopic LAR General diet. Pain controlled on oral pain meds. Daughter staying with her at home. Follow up with surgeons in 7-10 days. Need oncologic follow up. Consider presentation at [facility]. Okay to shower, hot tub, swim, walk, general diet, but no lifting >15 pounds for 6 weeks. Call with questions or concerns. Discharge to home. Discharge dictated [id number]
--- NOTE | 2017-03-13 14:36 | Discharge Plan ---
Discharge Plan Disposition: Home, Self Care Prescriptions: HYDROcod/ACETAM 5/325 [[place] 5/325] 1 tab PO Q4HR PRN #30 tablet PRN Reason: Pain Docusate Sodium 250Mg Capsule [Colace 250Mg Capsule] 250 mg PO DAILY #14 capsule Diet: Regular Activity Restrictions: No Restrictions (But no lifting >15 pounds for 6 weeks.) Shower Restrictions: No Driving Restrictions: No Assistance Devices: Walker Weight Bearing: Full Weight No Smoking: If you smoke, Please STOP! Call for help. Follow-up with: Willam Flores MD [Provider Admit Priv/Credential] -
--- NOTE | 2017-03-13 21:16 | DISCHARGE SUMMARY ---
DATE OF ADMISSION: 03/08/2017 DATE OF DISCHARGE: 03/13/2017 The patient was admitted to the hospital on 03/08/2017 with a nearly completely obstructing rectosigm oid mass. 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 She was brought in and operated on 03/08/2017. This was a laparoscopic low anterior resection per formed by Dr. Feliciano, assisted by myself, Dr. Flores. In addition, the medical doctors were asked to consult for medical issues including hypertension, Charcot joint, foot ulcers, and hypercholester olemia. The patient postoperatively did extremely well. The drain that had been placed operatively wa s removed. The patient started having bowel function return with passage of flatus and then bowel mov ements. 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 T he proximal and distal margins either were 4.7 or 7 cm from the tumor. 18 mesenteric lymph nodes all were negative for metastatic carcinoma. The radial margin was 6.2 cm. Additionally, colonic diverticu la were noted. This was discussed with the patient. The patient is being discharged home on 7 with a followup with one of the surgeons, either Dr. Feliciano, Dr. Jones or Dr. Flores in 7-10 days. She has been asked to call our office with any surgical questions and/or concerns. She should be able to tolerate a general diet. She can walk, climb stairs, swim, shower, bathe, hot tub, but she should not lift anything heavier than 15 pounds for a total of 6 weeks from the time of the operatio n. DISCHARGE MEDICATIONS: Will include Percocet for pain, as well as Colace to help prevent constipation . JOB #: [id number] EXT JOB #:[id number]
== END 2017-03-13 16:30 | disposition home or self-care (01) | DRG 329 ==
LOC: MS 10:50
PROVIDERS: ADMIT Surgery; ATTEND Surgery
PROC: 0DTN0ZZ Resection of Sigmoid Colon, Open Approach (ICD-10-PCS; 2017-03-08)
PROC: 0DTP0ZZ Resection of Rectum, Open Approach (ICD-10-PCS; principal; 2017-03-08 12:00)
DX: C19 Malignant neoplasm of rectosigmoid junction (principal); K29.61 Other gastritis with bleeding; A52.16 Charcot's arthropathy (tabetic); E78.00 Pure hypercholesterolemia, unspecified; K57.30 Diverticulosis of large intestine without perforation or abscess without bleeding; F41.9 Anxiety disorder, unspecified; L97.509 Non-pressure chronic ulcer of other part of unspecified foot with unspecified severity; K21.9 Gastro-esophageal reflux disease without esophagitis; I15.9 Secondary hypertension, unspecified; Z82.3 Family history of stroke; Z83.3 Family history of diabetes mellitus
CPT/HCPCS: 36415; 51701; 80048; 80053; 83735; 84100; 85014; 85018; 85025; 86850; 86900; 86901; 88309; 88341; 88342

== ENCOUNTER 2017-03-18 14:32 | Observation (INO) | payer MEDICARE, MEDICAID ==
[2017-03-18 16:00] LABS: CALCIUM 9.2 mg/dL (8.5-10.3); CREATININE 0.6 mg/dL (0.4-1.0); POTASSIUM 3.6 mmol/L (3.5-5.0)
--- NOTE | 2017-03-18 16:00 | ED Physician Documentation ---
History of Present Illness - Stated complaint Stated Complaint: BILAT LE SWELLING - Chief complaint Chief Complaint: Ext Problem - Additonal information Additional information: hx from pt 76 f abd clary last week over weekend devleoped [place] LE edema no CP or soa saw PMD, rx HCTZ which she has take for 2 days s relief called PMD and refrred to ER no fever cough CP SOA abd pain Review of Systems Constitutional: denies: Fever, Chills Cardiac: denies: Chest pain / pressure Respiratory: denies: Dyspnea, Cough GI: denies: Abdominal Pain, Nausea, Vomiting Musculoskeletal: reports: Extremity pain, Extremity swelling Endocrine: denies: Easy bruising / bleeding Immunocompromised: denies: Immunocompromised PD PAST MEDICAL HISTORY - Past Medical History Cardiovascular: Hypertension, High cholesterol Respiratory: None Neuro: None Endocrine/Autoimmune: None GI: None : None HEENT: None Psych: Anxiety Musculoskeletal: Other Derm: Other - Past Surgical History Past Surgical History: Yes General: Appendectomy HEENT: Tonsil/Adenoidectomy - Present Medications Home Medications: Ambulatory Orders Medication Instructions Recorded Confirmed Atenolol 50 mg PO DAILY 08/22/13 03/09/17 Zolpidem [Ambien] 10 mg PO QPM 08/22/13 03/09/17 cloNIDine [Catapres] 0.1 mg PO DAILY 09/14/13 03/09/17 Amlodipine Besylate 5 mg PO DAILY 08/18/15 03/09/17 Multivitamin [Theragran] 1 tab PO DAILYWM #30 tablet 03/05/17 03/08/17 Olmesartan Medoxomil 20 mg PO DAILY 03/09/17 03/09/17 Docusate Sodium 250Mg Capsule 250 mg PO DAILY #14 capsule 03/13/17 [Colace 250Mg Capsule] HYDROcod/ACETAM 5/325 [[place] 5/325] 1 tab PO Q4HR PRN #30 tablet 03/13/17 - Allergies Allergies/Adverse Reactions: Allergies Allergy/AdvReac Type Severity Reaction Status Date / Time strawberry Allergy Unknown Verified 03/16/16 10:06 venom-honey bee Allergy swelling Verified 08/22/13 22:28 [bee venom (honey bee)] - Social History Does the pt smoke?: No Smoking Status: Former smoker Does the pt drink ETOH?: Yes Does the pt have substance abuse?: No - Immunizations Immunizations are current?: Yes - POLST Patient has POLST: No POLST Status: Full Code PD ED PE NORMAL - Vitals Vital signs reviewed: Yes - HEENT HEENT: PERRL - Neck Neck: Supple, no meningeal sign - Cardiac Cardiac: RRR. No: No murmur (+ 3/6 murmur - new per pt) - Respiratory Respiratory: No respiratory distress, Clear bilaterally - Abdomen Abdomen: Soft, Non tender - Extremities Extremities: Other (L foot in boot 2/2 charcot foot, [place] pitting edema, non tender, MSV intact) - Neuro Neuro: Alert and oriented X 3, No motor deficit Results - Vitals Vitals: Vital Signs - 24 hr 03/18/17 03/18/17 14:40 18:10 Temperature 36.8 C Heart Rate 62 79 Respiratory 16 16 Rate Blood Pressure 148/80 H 182/79 H O2 Saturation 99 97 Oxygen O2 Source Room air - EKG (time done) 1545 Rate: Rate (enter#) Rhythm: NSR (63) Intervals: Normal IN Ischemia: Normal ST segments - Labs Labs: Laboratory Tests 03/18/17 03/18/17 03/18/17 15:25 15:25 15:25 WBC 6.7 RBC 3.29 L Hgb 9.8 L Hct 29.2 L MCV 88.7 MCH 29.7 MCHC 33.5 RDW 13.2 Plt Count 370 MPV 7.7 L Neut # 4.7 Lymph # 1.2 L [place] # 0.6 Eos # 0.1 Baso # 0.1 Absolute Nucleated RBC 0.00 Nucleated RBCs 0.0 Sodium 138 Potassium 3.6 Chloride 101 Carbon Dioxide 27 Anion Gap 10.0 BUN 11 Creatinine 0.6 Estimated GFR (MDRD) 97 Glucose 104 H Calcium 9.2 Troponin I < 0.04 B-Natriuretic Peptide 03/18/17 15:25 WBC RBC Hgb Hct MCV MCH MCHC RDW Plt Count MPV Neut # Lymph # [place] # Eos # Baso # Absolute Nucleated RBC Nucleated RBCs Sodium Potassium Chloride Carbon Dioxide Anion Gap BUN Creatinine Estimated GFR (MDRD) Glucose Calcium Troponin I B-Natriuretic Peptide 636 H - Rads (name of study) CXR Radiology: See rad report (NACPD) [place] LE doppler Radiology: See rad report (neg DVT) PD MEDICAL DECISION MAKING - ED course ED course: mild but new onset CHF with new heart murmur on exam in a post op pt will d/w hospitalist but feel pt merits obs for diuresis, serial trop and most importantly echo anemia noted - better than at dc last week had a pre-op echo which can compare to but with new edema, new murmur, newly elev BNP think another echo needed Departure - Departure Disposition: ED Place in Observation Clinical Impression: CHF (congestive heart failure) Qualifiers: Congestive heart failure type: unspecified congestive heart failure type Congestive heart failure chronicity: acute Qualified Code(s): I50.9 - Heart failure, unspecified Condition: Fair Comments: A heart murmur was noticed today - this will need further work up starting with an ultrasound of your heart called an echocardiogram
--- NOTE | 2017-03-18 16:26 | XRAY Preliminary Report ---
Exam: XR Chest 1 View IMPRESSION: Normal single view chest. [facility] SITE ID: [id number]
--- NOTE | 2017-03-18 16:28 | XRAY Report ---
EXAM: CHEST RADIOGRAPHY EXAM DATE: 03/18/2017 04:16 PM. CLINICAL HISTORY: Post op swelling. COMPARISON: 03/18/2017. TECHNIQUE: 1 view. FINDINGS: Lungs/Pleura: No focal opacities evident. No pleural effusion. No pneumothorax. Mediastinum: Within exam limitations, cardiomediastinal contour is normal. Other: None. IMPRESSION: Normal single view chest. [facility] Referring Provider Line: [phone] SITE ID: [id number]
[2017-03-18 16:30] LABS: BASOPHILS # (AUTO) 0.1 10^3/uL (0.0-0.1); BASOPHILS % (AUTO) 1.1 %; EOSINOPHILS # (AUTO) 0.1 10^3/uL (0.0-0.7); HCT - HEMATOCRIT 29.2 % (37.0-47.0); HGB - HEMOGLOBIN 9.8 g/dL (12.0-16.0); LYMPHOCYTES # (AUTO) 1.2 10^3/uL (1.5-3.5); LYMPHOCYTES % (AUTO) 18.2 %; MEAN CORPUSCULAR HEMOGLOBIN 29.7 pg (27.0-31.0); MEAN CORPUSCULAR HGB CONC 33.5 g/dL (32.0-36.0); MEAN CORPUSCULAR VOLUME 88.7 fL (81.0-99.0); MEAN PLATELET VOLUME 7.7 fL (7.9-10.8); MONOCYTES # (AUTO) 0.6 10^3/uL (0.0-1.0); MONOCYTES % (AUTO) 9.1 %; NEUTROPHILS # (AUTO) 4.7 10^3/uL (1.5-6.6); NEUTROPHILS % (AUTO) 69.6 %; RED BLOOD COUNT 3.29 10^6/uL (4.20-5.40); RED CELL DISTRIBUTION WIDTH 13.2 % (12.0-15.0); UNCORRECTED WHITE BLOOD COUNT 6.7 x10^3/uL; WHITE BLOOD COUNT 6.7 x10^3/uL (4.8-10.8)
--- NOTE | 2017-03-18 17:51 | Ultrasound Preliminary Report ---
Exam: US Duplex Ext Veins Bilateral IMPRESSION: No evidence for deep venous thrombosis bilaterally. [facility] SITE ID: [id number]
--- NOTE | 2017-03-18 17:53 | Ultrasound Report ---
EXAM: BILATERAL LOWER EXTREMITY VENOUS ULTRASOUND EXAM DATE: 03/18/2017 05:26 PM. CLINICAL HISTORY: Post op swelling. COMPARISON: None. TECHNIQUE: Real-time sonographic vascular imaging was performed by the sanipractic physician through the lower extremities utilizing both color-flow and Doppler spectral analysis. Multiple national account representative static i mages were saved for review. FINDINGS: Right: Common Femoral Vein (CFV): Normal. CFV-GSV Junction: Normal. Profunda Femoral Vein (PFV): Normal. Femoral Vein (FV) Prox: Normal. Femoral Vein (FV) Mid: Normal. Femoral Vein (FV) Dist: Normal. Popliteal Vein: Normal. Posterior Tibial Veins: Normal. Peroneal Veins: Normal. Left: Common Femoral Vein (CFV): Normal. CFV-GSV Junction: Normal. Profunda Femoral Vein (PFV): Normal. Femoral Vein (FV) Prox: Normal. Femoral Vein (FV) Mid: Normal. Femoral Vein (FV) Dist: Normal. Popliteal Vein: Normal. Posterior Tibial Veins: Normal. Peroneal Veins: Normal. Other: Bilateral popliteal fossa cysts. IMPRESSION: No evidence for deep venous thrombosis bilaterally. [facility] Referring Provider Line: [phone] SITE ID: [id number]
[2017-03-18] MEDS ORDERED: FUROSEMIDE 40 MG/4 ML VIAL IVP STA (18:00)
[2017-03-18] MEDS ORDERED: FUROSEMIDE 40 MG/4 ML VIAL ONE (18:04)
[2017-03-18] MEDS ORDERED: PROCHLORPERAZINE 10 MG/2 ML VIAL IVP PRN (18:30)
[2017-03-18] MEDS ORDERED: IBUPROFEN 400 MG TABLET PO PRN (18:30)
[2017-03-18] MEDS ORDERED: HYDROcod/ACETAM 5/325 MG TABLET PO PRN (18:30)
[2017-03-18] MEDS ORDERED: SODIUM CHLORIDE FLUSH 0.9% 10 ML SYRINGE IVP PRN (18:30)
[2017-03-18] MEDS ORDERED: ACETAMINOPHEN 325 MG TABLET PO PRN (18:30)
[2017-03-18] MEDS ORDERED: HYDROcod/ACETAM 10 MG/325 MG TABLET PO PRN (18:30)
[2017-03-18] MEDS ORDERED: ZOLPIDEM 5 MG TABLET PO PRN (18:30)
[2017-03-18] MEDS ORDERED: ONDANSETRON 4 MG/2 ML VIAL IVP PRN (18:30)
--- NOTE | 2017-03-18 18:57 | HISTORY & PHYSICAL EXAMINATION ---
Chief Complaint - Chief Complaint Chief Complaint: lower extremity swelling History of Present Illness - Admitted From Admitted From:: emergency department - History Obtained From Records Reviewed: yes History obtained from: patient Exam Limitations: none - History of Present Illness HPI Comment/Other: Patient is 76-year-old female with a past medical history significant for hypertension, Charcot joint with history of chronic foot ulcers, hyper cholesterolemia, recent hospitalization for GI bleed and recent hospitalization from 03/08/2017 till 03/13/2017 for nearly obstructing rectal sigmoid mass for which patient underwent laparoscopic low anterior resection and 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 The patient states that on Tuesday she saw her primary care physician who prescribed her hydrochlorothiazide patient has been taking the medication for the last 3 days but states that the swelling has continued to increase. She denies any shortness of air, orthopnea, chest pain or palpitations. Patient denies any cough fevers or chills. The patient did receive a fair amount of fluid during the hospitalization for the surgery. On presentation to the emergency department the patient was afebrile and vital signs were stable. She was however found to have bilateral lower extremity swelling with 4+ pitting edema. Her labs revealed a BNP of 636 her troponin was negative and EKG was negative. Hemoglobin was 9.8 but otherwise her labs were within normal limits. The patient was given IV Lasix in the emergency department and she's been placed in observation for what appears to be new onset right heart failure. She will receive an echocardiogram and receive further Lasix treatment overnight. Review of Systems - Constitutional Constitutional: denies: Fatigue, Fever, Chills, Malaise, Weakness, Poor appetite , Diaphoresis, Night sweats, Weight gain, Weight loss, Other - Eyes Eyes: denies: Pain, Irritation, Amaurosis, Blurred vision, Spots in vision, Field loss, Vision loss, Dipolpia, Corrective lenses, Other - Ears, Nose & Throat Ears, Nose & Throat: denies: Ear pain, Hearing loss, Hearing aids, Tinnitus, Vertigo, Nasal pain, Nasal discharge, Nosebleeds, Nasal obstruction, Nasal congestion, Postnasal drainage, Dentures, Sore throat, Hoarseness, Mouth lesions , Bleeding gums, Dental decay, Dental pain, Other - Cardiovascular Cariovascular: denies: Irregular heart rate, Palpitations, Chest pain, Edema, Lightheadedness, Syncope, Exertional dyspnea, Decr. exercise tolerance, Orthopnea, Other - Respiratory Respiratory: denies: Cough, Sputum production, Wheezing, Snoring, Hemoptysis, Orthopnea, SOB at rest, SOB with exertion, Apnea, Stridor, Pleuritic pain, Other - Gastrointestinal Gastrointestinal: denies: Abdominal pain, Abdominal distention, Constipation, Diarrhea, Change in bowel habits, Rectal bleeding, Black stools, Bloody stools, Nausea, Vomiting, Bile emesis, Jalen blood emesis, Coffee grounds emesis, Reflux /heartburn, Bloating, Poor appetite, Other - Genitourinary Genitourinary: denies: Dysuria, Frequency, Urgency, Hematuria, Incontinence, Flank pain, Nocturia, Urethral discharge, Sexual dysfunction, Other - Musculoskeletal Musculoskeletal: reports: Other (Bilateral lower extremity swelling). denies: Muscle pain, Back pain, Muscle aches, Stiffness, Limited range of motion, Muscle weakness, Gout, Joint pain, Joint swelling - Integumentary Integumentary: denies: Rash, Pruritis, Lesions, Dryness, Lumps, Acne, Pigment changes, Nail changes, Hair changes, Other - Neurological Neurological: denies: General weakness, Focal weakness, Headache, Dizziness, Numbness, Memory problems, Pre-existing deficit, Abnormal gait, Seizures, Incoordination, Slurred speech, Other - Psychiatric Psychiatric: denies: Depression, Anxiety, Suicidal, Delusions, Hallucinations, Homicidal, Other - Endocrine Endocrine: denies: Polyuria, Polydypsia, Polyphagia, Intolerance to cold, Intolerance to heat, Other - Hematologic/Lymphatic Hematologic/Lymphatic: denies: Anemia, Bruising, Petechiae, Blood clots, Lymphadenopathy, Bleeding tendencies, Recurrent infections, Other History - Past Medical History Cardiovascular: reports: Hypertension, High cholesterol Respiratory: reports: None Neuro: reports: None Endocrine/Autoimmune: reports: None GI: reports: None : reports: None HEENT: reports: None Psych: reports: Anxiety Musculoskeletal: reports: Other Derm: reports: Other MRSA Hx?: Yes - Past Surgical History General: reports: Appendectomy HEENT: reports: Tonsil/Adenoidectomy - Family & Social History Family History: Mother: , CVA/TIA, Father: , Diabetes, Type 2 ( Paternal Aunt), Other family: Diabetes, Type 2 Family History Comment/Other: No brothers or sisters and mom had osteoporosis Living arrangement: At home Living Situation: With spouse/s.o. Social History Notes: Patient lives in [place] with . Recently daughter and grandkids have moved in due to daughter going through marital issues. Patient under a lot of stress due to taking care of with parkinsons and family problems. - Substance History Use: Uses substance without health or social issues: Alcohol (1-2 glasses of wine a week with dinner) Abuse: Recurrent use of substance despite neg consequences: NONE Dependence: Experiences withdrawal or developed tolerances: NONE - POLST Patient has POLST: No POLST Status: Full Code Meds/Allgy - Home Medications Home Medications: Ambulatory Orders Medication Instructions Recorded Confirmed Atenolol 50 mg PO DAILY 08/22/13 03/09/17 Zolpidem [Ambien] 10 mg PO QPM 08/22/13 03/09/17 cloNIDine [Catapres] 0.1 mg PO DAILY 09/14/13 03/09/17 Amlodipine Besylate 5 mg PO DAILY 08/18/15 03/09/17 Multivitamin [Theragran] 1 tab PO DAILYWM #30 tablet 03/05/17 03/08/17 Olmesartan Medoxomil 20 mg PO DAILY 03/09/17 03/09/17 Docusate Sodium 250Mg Capsule 250 mg PO DAILY #14 capsule 03/13/17 [Colace 250Mg Capsule] HYDROcod/ACETAM 5/325 [[place] 5/325] 1 tab PO Q4HR PRN #30 tablet 03/13/17 - Allergies Allergies/Adverse Reactions: Allergies Allergy/AdvReac Type Severity Reaction Status Date / Time strawberry Allergy Unknown Verified 03/16/16 10:06 venom-honey bee Allergy swelling Verified 08/22/13 22:28 [bee venom (honey bee)] Exam - Vital Signs Reviewed Vital Signs: Yes Vital Signs: Vital Signs x48h Temp Pulse Resp BP Pulse Ox 03/18/17 18:10 79 16 182/79 H 97 03/18/17 14:40 36.8 C 62 16 148/80 H 99 - Physical Exam General Appearance: positive: No acute distress, Alert Eyes Bilateral: positive: Normal inspection, PERRL, EOMI, No lid inflammation, Conjunctivae nml, No scleral icterus ENT: positive: ENT inspection nml, Pharynx nml, No signs of dehydration. negative: Purulent nasal drainage, Pharyngeal erythema, Oral lesions Neck: positive: Nml inspection, Thyroid nml, No JVD, Trachea midline. negative : Thyromegaly, Lymphadenopathy (R), Lymphadenopathy (L) Respiratory: positive: Chest non-tender, No respiratory distress, Breath sounds nml. negative: Wheezes, Rales, Rhonchi Cardiovascular: positive: Regular rate & rhythm, No gallop, Systolic murmur Peripheral Pulses: positive: 2+ Abdomen: positive: No organomegaly, Nml bowel sounds, Tenderness (Mildly tender around surgical site), Other (Bruce in place, surgical site does not look infected). negative: Guarding, Rebound, Hepatomegaly Back: positive: Nml inspection. negative: CVA tenderness (R), CVA tenderness (L ) Skin: positive: Color nml, No rash, Warm Extremities: positive: Non-tender, Full ROM, Nml appearance, Pedal edema ( Bilateral LE edema 4+) Neurologic/Psychiatric: positive: Oriented x3, CN's nml (2-12), Motor nml, Sensation nml, Mood/affect nml Conclusion/Plan - Problem List (1) Swelling of both lower extremities Conclusion/Plan: Patient had recent surgery and may have swelling secondary to IVFs and 3rd spacing but patient has a new murmur on exam and elevated BNP Despite not having respiratory symptoms she could have right heart failure Will place in obs for IV lasix and echo Check UA for possible 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 syndrome 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 (2) Hypertension Conclusion/Plan: BP elevated on presentation Will continue home antihypertensives Started on IV lasix Qualifiers: Hypertension type: unspecified secondary hypertension Qualified Code(s): I15.9 - Secondary hypertension, unspecified; I15 - Secondary hypertension (3) Malignant tumor of rectosigmoid junction Conclusion/Plan: Patient was suppose to follow up with surgery after recent resection She failed to follow up with surgery Spoke with surgery and they will see the patient to remove bruce (4) Prophylactic use of low molecular weight heparin for venous thromboembolism Conclusion/Plan: On lovenox - Lab Results Lab results reviewed: Yes Fish Bones: 03/18/17 15:25 03/18/17 15:25 - Diagnostic Imaging Results Diagnostic Imaging Results: positive: Final report reviewed - EKG Results EKG Interpreted Independently: Yes Issues/Core Measures - Anticipated LOS Anticipated Stay Length: Less than 2 midnights - DVT/VTE - Prophylaxis VTE/DVT Prophylaxis med ordered at admit?: Yes
[2017-03-18] MEDS: FUROSEMIDE 40 MG/4 ML VIAL IVP SCH (22:46)
[2017-03-18] MEDS: SODIUM CHLORIDE FLUSH 0.9% 10 ML SYRINGE IVP SCH (22:46)
[2017-03-19 03:16] LABS: BASOPHILS # (AUTO) 0.1 10^3/uL (0.0-0.1); BASOPHILS % (AUTO) 1.1 %; EOSINOPHILS # (AUTO) 0.2 10^3/uL (0.0-0.7); EOSINOPHILS % (AUTO) 3.4 %; HCT - HEMATOCRIT 29.9 % (37.0-47.0); HGB - HEMOGLOBIN 10.1 g/dL (12.0-16.0); LYMPHOCYTES # (AUTO) 1.3 10^3/uL (1.5-3.5); LYMPHOCYTES % (AUTO) 23.4 %; MEAN CORPUSCULAR HGB CONC 33.7 g/dL (32.0-36.0); MEAN CORPUSCULAR VOLUME 89.2 fL (81.0-99.0); MEAN PLATELET VOLUME 7.5 fL (7.9-10.8); MONOCYTES # (AUTO) 0.6 10^3/uL (0.0-1.0); MONOCYTES % (AUTO) 10.1 %; NEUTROPHILS # (AUTO) 3.5 10^3/uL (1.5-6.6); NUCLEATED RED BLOOD CELLS AUTO 0.1 /100WBC; RED BLOOD COUNT 3.36 10^6/uL (4.20-5.40); UNCORRECTED WHITE BLOOD COUNT 5.7 x10^3/uL; WHITE BLOOD COUNT 5.7 x10^3/uL (4.8-10.8)
[2017-03-19 03:27] LABS: ALBUMIN/GLOBULIN RATIO 0.7 (1.0-2.2); BILIRUBIN,TOTAL 0.5 mg/dL (0.2-1.0); CALCIUM 9.2 mg/dL (8.5-10.3); CREATININE 0.6 mg/dL (0.4-1.0); MAGNESIUM 1.8 mg/dL (1.7-2.8); POTASSIUM 3.1 mmol/L (3.5-5.0)
[2017-03-19] MEDS: SODIUM CHLORIDE FLUSH 0.9% 10 ML SYRINGE IVP SCH (06:58)
[2017-03-19] MEDS ORDERED: PANTOPRAZOLE 40 MG TABLET PO SCH (07:00)
[2017-03-19] MEDS ORDERED: POTASSIUM CHLORIDE 20 MEQ TABLET PO SCH ×2 (08:00)
[2017-03-19] MEDS ORDERED: MULTIVITAMIN TABLET PO SCH (08:00)
[2017-03-19] MEDS: FUROSEMIDE 40 MG/4 ML VIAL IVP SCH (08:15)
[2017-03-19 08:18] VITALS: BP 150/78
[2017-03-19] MEDS ORDERED: cloNIDine 0.1 MG TABLET PO SCH (09:00)
[2017-03-19] MEDS ORDERED: LOSARTAN 50 MG TABLET PO SCH (09:00)
[2017-03-19] MEDS ORDERED: ATENOLOL 25 MG TABLET PO SCH (09:00)
[2017-03-19] MEDS ORDERED: POLYETHYLENE GLYCOL 3350 17 GM PACKET PO SCH (09:00)
[2017-03-19] MEDS ORDERED: ENOXAPARIN 40 MG/0.4 ML SYRINGE SUBQ SCH (09:00)
--- NOTE | 2017-03-19 09:24 | Discharge Plan ---
Discharge Plan Disposition: Home, Self Care Condition: Good Prescriptions: hydroCHLOROthiazide [Hydrodiuril] 12.5 mg PO DAILY #30 capsule Furosemide [Lasix] 20 mg PO DAILY #30 tablet Potassium Chloride 20 meq PO DAILY #30 tab.er.prt Diet: Regular Activity Restrictions: Activity as Tolerated Shower Restrictions: No Driving Restrictions: No Weight Bearing: Full Weight Additional Instructions or Follow Up instructions: You likely have swelling in your legs due to all the fluid you received during your recent surgery. I have prescribed you a water pill to help with the swelling. The echocardiogram of your heart did not show any major problems. Your heart function is good. Please follow up with oncology and your PCP> No Smoking: If you smoke, Please STOP! Call for help.
--- NOTE | 2017-03-20 00:53 | DISCHARGE SUMMARY ---
DATE OF OBSERVATION: 03/18/2017 DATE OF DISCHARGE: 03/19/2017 PRIMARY CARE PHYSICIAN: Andre Spring MD DISCHARGING PHYSICIAN: Dimas Moeller MD DISCHARGE DIAGNOSES 1. Swelling of both lower extremities. 2. Hypertension. 3. Malignant tumor of rectosigmoid junction. 4. Prophylactic use of low molecular weight heparin for venous thromboembolism prophylaxis. DISCHARGE MEDICATIONS 1. Lasix 20 mg p.o. daily. 2. Potassium chloride 20 mEq p.o. daily. 3. Hydrochlorothiazide 12.5 mg p.o. daily. 4. Atenolol 50 mg p.o. daily. 5. Olmesartan 20 mg p.o. daily. 6. Clonidine 0.1 mg p.o. daily. 7. Amlodipine 5 mg p.o. daily. 8. Ambien 10 mg p.o. q.p.m. 9. Multivitamin 1 tablet p.o. daily. HOSPITAL COURSE: The patient is a 76-year-old female with a past medical history significant for hype rtension, Charcot joint with history of chronic left foot ulcers and chronic left lower extremity louie ma, hypercholesterolemia, recent hospitalization for GI bleed, and recent hospitalization from 2016 to 03/13/2017 for nearly obstructing rectosigmoid mass, for which patient underwent laparoscopic low anterior resection, and biopsy showed tubulovillous adenoma with focal high-grade glandular dysp lasia. The patient stated that she began having lower extremity swelling prior to discharge during th at hospitalization, and the swelling continued to worsen over the next week. She saw her primary care physician just 3 days earlier and was given hydrochlorothiazide, which she took for the past 3 days, but she states that the swelling continued to increase. She denied any shortness of breath, orthopne a, chest pain, or palpitations. She also denied any fevers or chills. She came in to the emergency de partment for this increasing lower extremity swelling. In the emergency department, she was found to afebrile. She did have 4+ pitting edema in the bilatera l lower extremities. Her BNP was up to 636. Her troponin was negative. EKG was negative. The patient was found to have a murmur on her physical examination, and there was concern for possible new onset CHF. Therefore patient was placed in observation for IV Lasix and echocardiogram. The patient did hav e improvement in her lower extremity edema with IV Lasix. An echocardiogram was performed the next mo rning. The echocardiogram revealed an overall left ventricular systolic function that was normal with an ejection fraction of 60% to 65% and impaired relaxation consistent with grade 1 diastolic dysfunc tion; otherwise she had no major valvular abnormalities. She had mild aortic stenosis but nothing to explain her lower extremity edema. There was no right heart failure. The patient was discharged home on Lasix with potassium and continued on her home medications. We tho ught that the edema was likely secondary to all the fluid that she received during the surgery, and h er low albumin leading to third spacing. The patient was told to continue her Lasix and then follow u p with her primary care physician. She was also instructed to follow up with Oncology regarding this rectosigmoid mass that was resected. She was also seen by Surgery while she was hospitalized, and her bruce were removed. She will follow up with the [facility] and Surgery, as well as her PCP. PHYSICAL EXAMINATION ON DISCHARGE VITAL SIGNS: Temperature of 36.9, heart rate 64, blood pressure 150/78, respiratory rate 18, O2 satur ation 94% on room air. GENERAL: Patient does not appear to be in any acute distress. She is resting comfortably. She is aler t and able to answer my questions appropriately. NECK: Supple. No thyromegaly. No JVD. Trachea is midline. LYMPH NODES: There is no cervical or axillary lymphadenopathy noted. CARDIOVASCULAR: The patient has S1, S2. Mild systolic murmur. No rubs, no gallops. LUNGS: Clear to auscultation bilaterally. No wheezes, rhonchi, or crackles. ABDOMEN: Soft, nontender, nondistended. Bowel sounds are present in all 4 quadrants. EXTREMITIES: There is bilateral lower extremity edema. The left lower extremity is worse than the rig ht, but there is 4+ pitting edema; this is mildly improved from yesterday. There is no cyanosis or cl ubbing. MUSCULOSKELETAL: The patient has good range of motion. No joint tenderness. No joint effusions. SKIN: No skin rashes, lesions, cellulitis, or abscesses. NEUROLOGIC: The patient is alert and oriented x3. Cranial nerves 2-12 are grossly intact. Strength is grossly normal. Sensations are intact. LABORATORY: WBC 5.7, hemoglobin 10.1, hematocrit 29.9, platelet count 379. Sodium 138, potassium 3.1, chloride 100, carbon dioxide 27, BUN 12, creatinine 0.6, glucose 107, calcium 9.2, magnesium 1.8, to cheli bilirubin 0.5, AST 17, ALT 16, alkaline phosphatase 50, troponin less than 0.04, BNP 433, total p rotein 7.0, albumin 2.9. IMAGING CHEST X-RAY IMPRESSION: Normal single-view chest. VENOUS DOPPLER OF BILATERAL LOWER EXTREMITIES IMPRESSION: No evidence of deep venous thrombosis jerry holguin. FOLLOWUP/RECOMMENDATIONS: The patient is prescribed Lasix and potassium to take for her lower extremi ty swelling. She will follow up with her primary care physician. She will also follow up with Oncolog y and Surgery in regard to her rectosigmoid mass. Greater than 30 minutes was spent on discharge. JOB #: [id number] EXT JOB #:[id number]
== END 2017-03-19 10:15 | disposition home or self-care (01) ==
LOC: ED 14:32 → MS 18:30
PROVIDERS: ADMIT Internal Medicine; ATTEND Internal Medicine
DX: R60.0 Localized edema (principal); R22.43 Localized swelling, mass and lump, lower limb, bilateral; I10 Essential (primary) hypertension; R01.1 Cardiac murmur, unspecified; C19 Malignant neoplasm of rectosigmoid junction; Z87.891 Personal history of nicotine dependence; A52.16 Charcot's arthropathy (tabetic); D64.9 Anemia, unspecified; F41.9 Anxiety disorder, unspecified; E78.00 Pure hypercholesterolemia, unspecified; Z90.49 Acquired absence of other specified parts of digestive tract; Z79.891 Long term (current) use of opiate analgesic
CPT/HCPCS: 36415; 71010; 80048; 80053; 82553; 83735; 83880; 84484; 85025; 93005; 93010; 93306; 93970; 96374; 96376; 99283; 99284; A9270; G0378

== ENCOUNTER 2017-04-08 15:43 | Outpatient (CLI) | payer MEDICARE, MEDICAID ==
--- NOTE | 2017-04-08 16:35 | XRAY Preliminary Report ---
Exam: XR Chest 2 View PA/LAT IMPRESSION: Chronic lung disease. [facility] SITE ID: [id number]
--- NOTE | 2017-04-08 16:42 | XRAY Report ---
EXAM: CHEST RADIOGRAPHY EXAM DATE: 04/08/2017 04:09 PM. CLINICAL HISTORY: Cough. Recent diagnosis of rectosigmoid tumor. COMPARISON: Chest CT 03/03/2017. One view chest 08/22/2013. TECHNIQUE: 2 views. FINDINGS: Lungs/Pleura: No focal opacities evident. No pleural effusion. No pneumothorax. Overexpanded. Mediastinum: Heart and mediastinal contours are unremarkable. Other: Remote epigastric surgery. IMPRESSION: Chronic lung disease. [facility] Referring Provider Line: [phone] SITE ID: [id number]
== END 2017-04-08 15:44 | disposition home or self-care (01) ==
LOC: DI 15:43
PROVIDERS: ATTEND Family Medicine
DX: J98.4 Other disorders of lung (principal)
CPT/HCPCS: 71020

== ENCOUNTER 2017-04-22 11:04 | Outpatient (CLI) | payer MEDICARE, MEDICAID ==
--- NOTE | 2017-04-22 16:10 | XRAY Report ---
THREE VIEW RIGHT SHOULDER: 04/22/2017 CLINICAL INDICATION: Pain. FINDINGS: AP, oblique, and lateral views of the right shoulder demonstrate no evidence of fracture o r dislocation. The joint spaces are preserved. No radiopaque foreign body is seen in the soft tissues . IMPRESSION: NORMAL RIGHT SHOULDER. JOB #: [id number] EXT JOB #:[id number]
== END 2017-04-22 11:05 | disposition home or self-care (01) ==
LOC: DI 11:04
PROVIDERS: ATTEND Family Medicine
DX: M25.511 Pain in right shoulder (principal)

== ENCOUNTER 2017-04-27 14:44 | Outpatient (CLI) | payer MEDICARE, MEDICAID ==
--- NOTE | 2017-04-27 16:33 | XRAY Report ---
FOUR VIEW RIGHT WRIST: 04/27/2017 CLINICAL INDICATION: Pain. FINDINGS: AP, lateral, oblique, and scaphoid views of the right wrist demonstrate extensive osteoart hritis, with chondrocalcinosis. There is no evidence of acute fracture or dislocation. Vascular calci fications are noted. IMPRESSION: EXTENSIVE OSTEOARTHRITIS. NO EVIDENCE OF ACUTE FRACTURE. JOB #: [id number] EXT JOB #:[id number]
== END 2017-04-27 14:45 | disposition home or self-care (01) ==
LOC: DI 14:44
PROVIDERS: ATTEND Family Medicine
DX: M19.031 Primary osteoarthritis, right wrist (principal)

== ENCOUNTER 2019-02-12 15:07 | Emergency (ER) | payer MEDICAID, MEDICARE ==
[2019-02-12 15:21] VITALS: BP 206/89
--- NOTE | 2019-02-12 15:42 | ED Physician Documentation ---
PD HPI LOWER EXT INJURY - Stated complaint Stated Complaint: R FOOT INJ - Chief complaint Chief Complaint: Ext Problem - History obtained from History obtained from: Patient - History of Present Illness PD HPI LOW EXT INJURY LOCATION: Right (She twisted her right foot today and has intermittent but at times severe pain near the fifth metatarsal. No other injuries. She did not fall.) Review of Systems Constitutional: reports: Reviewed and negative Cardiac: reports: Reviewed and negative Respiratory: reports: Reviewed and negative PD PAST MEDICAL HISTORY - Past Medical History Past Medical History: Yes Cardiovascular: Hypertension, High cholesterol Respiratory: None Endocrine/Autoimmune: None GI: None : None HEENT: None Psych: Anxiety Musculoskeletal: Other Derm: Other - Past Surgical History Past Surgical History: Yes General: Appendectomy HEENT: Tonsil/Adenoidectomy - Present Medications Home Medications: Ambulatory Orders Medication Instructions Recorded Confirmed Atenolol 50 mg PO DAILY 08/22/13 03/19/17 cloNIDine [Catapres] 0.1 mg PO DAILY 09/14/13 03/19/17 Amlodipine Besylate 5 mg PO DAILY 08/18/15 03/19/17 Multivitamin [Theragran] 1 tab PO DAILYWM #30 tablet 03/05/17 03/19/17 Olmesartan Medoxomil 20 mg PO DAILY 03/09/17 03/19/17 Furosemide [Lasix] 20 mg PO DAILY #30 tablet 03/19/17 Potassium Chloride 20 meq PO DAILY #30 tab.er.prt 03/19/17 Zolpidem Tartrate 10 mg PO QPM PRN 03/19/17 03/19/17 hydroCHLOROthiazide [Hydrodiuril] 12.5 mg PO DAILY #30 capsule 03/19/17 - Allergies Allergies/Adverse Reactions: Allergies Allergy/AdvReac Type Severity Reaction Status Date / Time strawberry Allergy Unknown Verified 02/12/19 15:21 venom-honey bee Allergy swelling Verified 02/12/19 15:21 [bee venom (honey bee)] - Social History Does the pt smoke?: No Smoking Status: Never smoker Does the pt drink ETOH?: Yes Does the pt have substance abuse?: No - Immunizations Immunizations are current?: Yes - POLST Patient has POLST: No POLST Status: Full Code PD ED PE NORMAL - Vitals Vital signs reviewed: Yes - General General: Alert and oriented X 3, No acute distress - Extremities Extremities: Other (Right foot is tender with some swelling near the mid to proximal fifth metatarsal without limited range of motion or deformity.) - Neuro Neuro: Alert and oriented X 3, Normal speech - Psych Psych: Normal mood, Normal affect Results - Vitals Vitals: Vital Signs - 24 hr 02/12/19 15:19 Temperature 36.8 C Heart Rate 65 Respiratory 18 Rate Blood Pressure 206/89 H O2 Saturation 97 Oxygen O2 Source Room air - Rads (name of study) R foot 3v Radiology: EMP read contemporaneously (THOMPSON, ANTONIO) Departure - Departure Disposition: Home, Self Care Clinical Impression: Right foot sprain Qualifiers: Encounter type: initial encounter Qualified Code(s): S93.601A - Unspecified sprain of right foot, initial encounter Condition: Good Record reviewed to determine appropriate education?: Yes Instructions: ED Sprain Foot Comments: Your blood pressure was elevated today on check into the emergency department. This does not mean that you have hypertension, it is a common phenomenon to come to the emergency department and have elevated blood pressure. I recommend that you see your primary care physician within the week to have it rechecked when you are feeling better. Tylenol as needed for pain Recheck with your primary doctor if not better in 1-2 weeks.
--- NOTE | 2019-02-12 15:46 | XRAY Report ---
Reason: pain to right foot. Procedure Date: 02/12/2019 Accession Number: [id number] / [id number] Procedure: XR - Foot 3 View RT CPT Code: FULL RESULT: EXAM: RIGHT FOOT RADIOGRAPHY. EXAM DATE: 02/12/2019 03:25 PM. CLINICAL HISTORY: Pain to right foot. COMPARISON: FOOT 3 VIEW LT 01/07/2015 9:58 AM. TECHNIQUE: 3 views. FINDINGS: Bones: No acute fracture appreciated. Joints: Joint space narrowing with prominent marginal osteophyte of the first MTP with slight bunion type deformity. Milder degenerative changes noted of the first tarsometatarsal joint. The second through fifth digits curl downward in flexion. Soft Tissues: Normal. No soft tissue swelling. IMPRESSION: No acute fracture. Degenerative changes of the first MTP joint with mild bunion deformity. [facility]
== END 2019-02-12 17:13 | disposition home or self-care (01) ==
LOC: ED 15:07
DX: S93.601A Unspecified sprain of right foot, initial encounter (principal); X50.1XXA Overexertion from prolonged static or awkward postures, initial encounter; Y93.01 Activity, walking, marching and hiking; M19.071 Primary osteoarthritis, right ankle and foot; M21.611 Bunion of right foot; I10 Essential (primary) hypertension
CPT/HCPCS: 99282; 99283

== ENCOUNTER 2020-08-23 20:15 | Outpatient (CLI) | payer MEDICARE | END 2020-08-23 20:16 | disposition critical access hospital (66) | LOC: EMS 20:15 | PROVIDERS: ATTEND Surgery | DX: M79.604 Pain in right leg (principal) | CPT/HCPCS: A0425; A0429 ==

== ENCOUNTER 2020-08-23 20:19 | Emergency (ER) | payer MEDICARE ==
[2020-08-23] MEDS ORDERED: MORPHINE 2 MG/ML CARPUJECT IVP STA (20:26)
--- NOTE | 2020-08-23 20:29 | ED Physician Documentation ---
PD HPI LOWER EXT INJURY - Stated complaint Stated Complaint: R FOOT PAIN - History obtained from History obtained from: Patient - History of Present Illness PD HPI LOW EXT INJURY LOCATION: Right Where injury occurred: Home Timing - onset: Today () Timing - details: Abrupt onset - Additional information Additional information: Her right foot was little sore but just may be in the last hour and a half she developed severe cramping right lower extremity pain without specific injury. Review of Systems Ten Systems: 10 systems reviewed and negative Constitutional: denies: Fever, Chills Cardiac: reports: Reviewed and negative Respiratory: reports: Reviewed and negative PD PAST MEDICAL HISTORY - Past Medical History Cardiovascular: Hypertension, High cholesterol Respiratory: None Endocrine/Autoimmune: None GI: None : None HEENT: None Psych: Anxiety Musculoskeletal: Other Derm: Other - Past Surgical History Past Surgical History: Yes General: Appendectomy HEENT: Tonsil/Adenoidectomy - Present Medications Home Medications: Ambulatory Orders Medication Instructions Recorded Confirmed Atenolol 50 mg PO DAILY 08/22/13 03/19/17 cloNIDine [Catapres] 0.1 mg PO DAILY 09/14/13 03/19/17 Amlodipine Besylate 5 mg PO DAILY 08/18/15 03/19/17 Multivitamin [Theragran] 1 tab PO DAILYWM #30 tablet 03/05/17 03/19/17 Olmesartan Medoxomil 20 mg PO DAILY 03/09/17 03/19/17 Furosemide [Lasix] 20 mg PO DAILY #30 tablet 03/19/17 Potassium Chloride 20 meq PO DAILY #30 tab.er.prt 03/19/17 Zolpidem Tartrate 10 mg PO QPM PRN 03/19/17 03/19/17 hydroCHLOROthiazide [Hydrodiuril] 12.5 mg PO DAILY #30 capsule 03/19/17 - Allergies Allergies/Adverse Reactions: Allergies Allergy/AdvReac Type Severity Reaction Status Date / Time strawberry Allergy Unknown Verified 02/12/19 15:21 venom-honey bee Allergy swelling Verified 02/12/19 15:21 [bee venom (honey bee)] - Social History Does the pt smoke?: No Smoking Status: Never smoker Does the pt drink ETOH?: Yes Does the pt have substance abuse?: No - Immunizations Immunizations are current?: Yes - POLST Patient has POLST: No POLST Status: Full Code PD ED PE NORMAL - Vitals Vital signs reviewed: Yes - General General: Alert and oriented X 3 (Appears uncomfortable) - HEENT HEENT: PERRL, EOMI - Neck Neck: Supple, no meningeal sign, No bony TTP - Cardiac Cardiac: RRR, No murmur - Respiratory Respiratory: No respiratory distress, Clear bilaterally - Abdomen Abdomen: Normal bowel sounds, Soft, Non tender - Back Back: No CVA TTP, No spinal TTP - Derm Derm: Normal color, Warm and dry - Extremities Extremities: Other (The right foot is cold compared to the left and pale compared to the left. The asymmetry in color and temperature seem to go to abo ut mid calf. I do not appreciate pedal pulses.) - Neuro Neuro: Alert and oriented X 3, Normal speech - Psych Psych: Normal mood, Normal affect Results - Vitals Vitals: Vital Signs - 24 hr 08/23/20 08/23/20 20:25 20:59 Temperature 36.9 C Heart Rate 81 72 Respiratory 20 17 Rate Blood Pressure 211/114 H 157/91 H O2 Saturation 94 93 Oxygen O2 Source Room air Oxygen Flow Rate 2 - Labs Labs: Laboratory Tests 08/23/20 08/23/20 20:33 20:33 WBC 6.2 RBC 5.05 Hgb 15.9 Hct 47.0 MCV 93.1 MCH 31.5 H MCHC 33.8 RDW 13.3 Plt Count 192 MPV 10.1 Neut # (Auto) 3.6 Lymph # (Auto) 1.7 [place] # (Auto) 0.6 Eos # (Auto) 0.3 Baso # (Auto) 0.0 Absolute Nucleated RBC 0.00 Nucleated RBC % 0.0 Sodium 139 Potassium 3.3 L Chloride 101 Carbon Dioxide 23 Anion Gap 15.0 H BUN 14 Creatinine 0.7 Estimated GFR (MDRD) 80 L Glucose 126 H Calcium 10.0 PD MEDICAL DECISION MAKING - ED course ED course: 80-year-old woman presents with acute pain to the right lower extremity, she looks uncomfortable. I do not appreciate pulses in the right foot, and I am unable to Doppler pulses on initial evaluation. Heparin is begun and we reached out to [facility] for transfer for vascular consultation. I spoke with Woodrow Mayorga at [facility] who recommended that we just call the vascular surgeon and do an ER to ER transfer to [facility] and they will pay for that, but did note that we need to pass along when she is a [facility] patient says that when she is admitted it is a separate hospitalist service I guess. Subsequently I spoke with the vascular PA, Ramón Harper who will see her in consultation and agrees with the ED to ED transfer and subsequently she was excepted to [facility] ED by [facility] and cobras were completed. We were able to do an abbreviated formal ultrasound and the pump operator byproducts reported to me that she has flow in the common femoral but not distal to that or in the popliteal. Departure - Departure Disposition: 02 Transfer Acute Care Hosp Clinical Impression: Acute occlusion of artery of lower extremity Condition: Serious
[2020-08-23 20:45] LABS: BASOPHILS % (AUTO) 0.5 %; EOSINOPHILS # (AUTO) 0.3 10^3/uL (0.0-0.7); EOSINOPHILS % (AUTO) 4.2 %; HGB - HEMOGLOBIN 15.9 g/dL (12.0-16.0); LYMPHOCYTES # (AUTO) 1.7 10^3/uL (1.5-3.5); MEAN CORPUSCULAR HEMOGLOBIN 31.5 pg (27.0-31.0); MEAN CORPUSCULAR HGB CONC 33.8 g/dL (32.0-36.0); MEAN CORPUSCULAR VOLUME 93.1 fL (81.0-99.0); MEAN PLATELET VOLUME 10.1 fL (7.9-10.8); MONOCYTES # (AUTO) 0.6 10^3/uL (0.0-1.0); MONOCYTES % (AUTO) 9.5 %; NEUTROPHILS # (AUTO) 3.6 10^3/uL (1.5-6.6); NEUTROPHILS % (AUTO) 58.5 %; PLT - PLATELET COUNT 192 10^3/uL (130-450); RED BLOOD COUNT 5.05 10^6/uL (4.20-5.40); RED CELL DISTRIBUTION WIDTH 13.3 % (12.0-15.0); WHITE BLOOD COUNT 6.2 x10^3/uL (4.8-10.8)
[2020-08-23] MEDS ORDERED: HYDROmorphone 1 MG/ML CARPUJECT IVP STA ×2 (20:52→21:13)
[2020-08-23 20:54] LABS: CREATININE 0.7 mg/dL (0.4-1.0)
[2020-08-23] MEDS ORDERED: HEPARIN 25000UNITS/500ML (D5W) 25,000 UNIT/500 ML BAG IV SCH (21:00)
[2020-08-23 21:31] VITALS: BP 147/84
--- NOTE | 2020-08-23 21:39 | Ultrasound Report ---
PROCEDURE: Duplex Lwr Ext Arterial RT INDICATIONS: Leg pain TECHNIQUE: Color and pulse Doppler interrogation was performed of the right lower extremity arterial system, wit h image documentation. COMPARISON: None FINDINGS: Very low velocity flow in the right common femoral artery is 12.5 cm/s. No detectable flow in the rem ainder of the right lower extremity vasculature. 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 Low f low velocity within the common femoral artery suggests an element of more proximal disease as well. Reviewed by: Puneet Garcia MD on 08/23/2020 9:38 PM PST Approved by: Puneet Garcia MD on 08/23/2020 9:38 PM PST Station ID: [id number]
[2020-08-23 22:09] LABS: C. PNEUMONIAE- RESP PCR PANEL NOT DETECTED
== END 2020-08-23 21:46 | disposition short-term general hospital (02) ==
LOC: EDUNIT# → ED 20:19
DX: I70.92 Chronic total occlusion of artery of the extremities (principal); I10 Essential (primary) hypertension; Z20.828 Contact with and (suspected) exposure to other viral communicable diseases
CPT/HCPCS: 36415; 80048; 85025; 87631; 93926; 96374; 96375; 99285; J1170; 0202U

== ENCOUNTER 2020-08-30 09:46 | Emergency (ER) | payer MEDICARE ==
--- NOTE | 2020-08-30 10:38 | ED Physician Documentation ---
History of Present Illness - Stated complaint Stated Complaint: WOUND CHECK - Chief complaint Chief Complaint: Wound - History obtained from History obtained from: Patient - History of Present Illness Timing: How many days ago (3) Pain level max: 5 Pain level now: 4 - Additonal information Additional information: 80-year-old female presents to the emergency department stating that she wants her wound "checked". She states that she had an arterial embolectomy performed at [facility] in [place] 4 days ago. She states she wants to go to [place] today. She states that she called the on-call advice nurse who advised her to come to the emergency department to be checked. She states that she has no increased swelling or pain. She is taking Tylenol for pain. No fevers. No chills. No redness. Review of Systems Constitutional: denies: Fever, Chills GI: denies: Vomiting, Diarrhea Skin: denies: Rash Musculoskeletal: denies: Neck pain, Back pain Neurologic: denies: Headache PD PAST MEDICAL HISTORY - Past Medical History Cardiovascular: Hypertension, High cholesterol Respiratory: None Endocrine/Autoimmune: None GI: None : None HEENT: None Psych: Anxiety Musculoskeletal: Other Derm: Other - Past Surgical History Past Surgical History: Yes General: Appendectomy Cardiovascular: Vascular surgery HEENT: Tonsil/Adenoidectomy - Present Medications Home Medications: Ambulatory Orders Medication Instructions Recorded Confirmed cloNIDine [Catapres] 0.1 mg PO DAILY 09/14/13 03/19/17 Amlodipine Besylate 5 mg PO DAILY 08/18/15 03/19/17 Olmesartan Medoxomil 20 mg PO DAILY 03/09/17 03/19/17 Zolpidem Tartrate 10 mg PO QPM PRN 03/19/17 03/19/17 Apixaban [Eliquis] 08/30/20 08/30/20 Aspirin [Aspirin EC] 81 mg PO 08/30/20 08/30/20 Metoprolol Tartrate [Lopressor] 50 mg PO 08/30/20 - Allergies Allergies/Adverse Reactions: Allergies Allergy/AdvReac Type Severity Reaction Status Date / Time strawberry Allergy Unknown Verified 08/30/20 10:19 venom-honey bee Allergy swelling Verified 08/30/20 10:19 [bee venom (honey bee)] - Social History Does the pt smoke?: No Smoking Status: Never smoker Does the pt drink ETOH?: Yes Does the pt have substance abuse?: No - Immunizations Immunizations are current?: Yes - POLST Patient has POLST: No POLST Status: Full Code PD ED PE NORMAL - Vitals Vital signs reviewed: Yes - General General: Alert and oriented X 3, No acute distress - HEENT HEENT: Moist mucous membranes - Neck Neck: Supple, no meningeal sign - Respiratory Respiratory: No respiratory distress - Derm Derm: Warm and dry - Extremities Extremities: Other (R LE - ecchymosis and swelling to the medial aspect of the R thigh. incision is CDI with no signs of infection. ) - Neuro Neuro: Alert and oriented X 3 - Psych Psych: Normal mood, Normal affect Results - Vitals Vitals: Vital Signs - 24 hr 08/30/20 08/30/20 09:55 11:15 Temperature 36.3 C L Heart Rate 71 98 Respiratory 17 18 Rate Blood Pressure 99/50 L 112/61 O2 Saturation 97 Oxygen O2 Source Room air PD MEDICAL DECISION MAKING - ED course Complexity details: reviewed old records, considered differential, d/w patient, d/w database reporting consultant ED course: Discussed with vascular surgery, no acute interventions at this time. Does not need an ultrasound. She will follow-up as planned in clinic. No evidence of infection, aneurysm, pseudoaneurysm, abscess. Patient counseled regarding signs and symptoms for which I believe and urgent re-evaluation would be necessary. Patient with good understanding of and agreement to plan and is comfortable going home at this time This document was made in part using voice recognition software. While efforts are made to proofread this document, sound alike and grammatical errors may occur. Departure - Departure Disposition: 01 Home, Self Care Clinical Impression: Postoperative wound hematoma Condition: Good Instructions: ED Wound Check Post Op Bleeding Follow-Up: Andre Spring MD [Primary Care Provider] - Comments: Continue your Tylenol at home. Continue your medications. I spoke with vascular surgery today on the phone. Go to your closest emergency department if you develop numbness or pain in the foot, increasing redness or increasing swelling to the groin. Discharge Date/Time: 08/30/20 11:23
[2020-08-30 11:24] VITALS: BP 112/61
== END 2020-08-30 11:23 | disposition home or self-care (01) ==
LOC: ED 09:46
DX: L76.32 Postprocedural hematoma of skin and subcutaneous tissue following other procedure (principal); Y83.8 Other surgical procedures as the cause of abnormal reaction of the patient, or of later complication, without mention of misadventure at the time of the procedure; I10 Essential (primary) hypertension
CPT/HCPCS: 99281; 99284

== ENCOUNTER 2020-11-19 12:25 | Outpatient (CLI) | payer MEDICARE ==
--- NOTE | 2020-11-19 12:56 | XRAY Report ---
PROCEDURE: Ankle 3 View RT INDICATIONS: PAIN IN RIGHT ANKLE AND JOINTS OF RIGHT FOOT TECHNIQUE: 3 views of the ankle were acquired. COMPARISON: None FINDINGS: Bones: No fractures or dislocations. Ankle mortise is normally aligned. No suspicious bony lesions . Soft tissues: No tibiotalar joint effusion. Achilles tendon appears normal. IMPRESSION: No trauma found, source of reported swelling is not seen. Reviewed by: Fran Dunham MD on 11/19/2020 12:55 PM PST Approved by: Fran Dunham MD on 11/19/2020 12:55 PM PST Station ID: [id number]
--- NOTE | 2020-11-19 12:58 | XRAY Report ---
PROCEDURE: Foot 3 View RT INDICATIONS: PAIN IN RIGHT ANKLE AND JOINTS OF RIGHT FOOT TECHNIQUE: 3 views of the foot were acquired. COMPARISON: Ankle plain films same day. FINDINGS: Bones: No fractures or dislocations. There is, however, moderately severe to severe degenerative ost eoarthritic change at the first MTP joint where near [id number] articulation is present. No suspic ious bony lesions. Soft tissues: No tibiotalar joint effusion. Achilles tendon appears normal. 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 Heath lilian, area of maximal symptomatology is reported over the lateral aspect of the hindfoot, separate fro m this area. A definite abnormality in that region is not found. Reviewed by: Fran Dunham MD on 11/19/2020 12:57 PM [facility] Approved by: Fran Dunham MD on 11/19/2020 12:57 PM [facility] Station ID: [id number]
== END 2020-11-19 12:26 | disposition home or self-care (01) ==
LOC: DI 12:25
PROVIDERS: ATTEND Family Medicine
DX: M19.071 Primary osteoarthritis, right ankle and foot (principal)

== ENCOUNTER 2020-12-19 12:46 | Outpatient (CLI) | payer MEDICARE ==
--- NOTE | 2020-12-19 17:06 | Ultrasound Report ---
PROCEDURE: Duplex Lwr Ext Arterial Bilat INDICATIONS: NON-PRS CHRONIC ULCER OF RIGHT ANKLE W FAT LAYER E TECHNIQUE: Color and pulse Doppler interrogation was performed of both lower extremity arterial systems, with im age documentation. COMPARISON: Prior right lower extremity duplex Doppler examination dated 08/23/2020 FINDINGS: Right lower extremity: Common femoral artery: 93 cm/sec, with monophasic flow. Deep femoral artery: 250 cm/sec, with monophasic flow. Proximal superficial femoral artery: 53 cm/sec, with monophasic flow. Mid superficial femoral artery: Severe high-grade stenosis and/or occlusion Distal superficial femoral artery reconstitution of blood flow with diminished monophasic flow. Popliteal artery: 71 cm/sec, with monophasic flow. Posterior tibial artery: 60 cm/sec, with monophasic flow. Anterior tibial artery/dorsalis pedis: Suboptimally visualized. James-scale imaging description: Severe scattered plaque. Left lower extremity: Common femoral artery: 127 cm/sec, with monophasic flow. Deep femoral artery: 91 cm/sec, with monophasic flow. Proximal superficial femoral artery: 37 cm/sec, with monophasic flow. Mid superficial femoral artery: 49 cm/sec, with monophasic flow. Distal superficial femoral artery: 65 cm/sec, with monophasic flow. Popliteal artery: Severe stenosis and/or occlusion Posterior tibial artery: High-grade stenosis and/or occlusion Anterior tibial artery/dorsalis pedis: Occluded James-scale imaging description: Heavy scattered plaque. IMPRESSION: 1. Severe stenosis and/or occlusion involving the mid right superficial femoral artery with reconstit ution of flow into the distal superficial femoral artery with diminished monophasic flow noted distal ly. 2. High-grade stenosis and/or occlusion involving the left popliteal artery and there is occlusion of the left anterior tibial artery. Reviewed by: JAIDEN Ho on 12/19/2020 5:04 PM PDT Approved by: Michelle Medrano MD on 12/19/2020 5:04 PM PDT Station ID: [id number]
== END 2020-12-19 12:47 | disposition home or self-care (01) ==
LOC: DI 12:46
PROVIDERS: ATTEND Nurse Practitioner
DX: L97.312 Non-pressure chronic ulcer of right ankle with fat layer exposed (principal); L89.620 Pressure ulcer of left heel, unstageable; Z86.718 Personal history of other venous thrombosis and embolism; I77.1 Stricture of artery
CPT/HCPCS: 93925

== ENCOUNTER 2021-04-04 09:50 | Emergency (ER) | payer MEDICARE ==
[2021-04-04] MEDS ORDERED: BUFFERED LIDOCAINE 10 ML SYRINGE SUBQ STA (11:18)
--- NOTE | 2021-04-04 11:44 | ED Physician Documentation ---
History of Present Illness - Stated complaint Stated Complaint: R LEG BUMP - Chief complaint Chief Complaint: Ext Problem - History obtained from History obtained from: Patient - History of Present Illness Timing: Last night - Additonal information Additional information: 80-year-old female has had some vein stripping done on her right leg and she has developed an infection in her foot following that she is going to see the wound wound clinic about that and last night along the medial aspect of the right upper thigh near where she has had her surgery she developed a swelling and redness. She has mild tenderness associated with it and she is drawn some circles around where the redness was. She has not had fever she is not currently on antibiotic. Review of Systems Constitutional: denies: Fever Nose: denies: Congestion Respiratory: denies: Cough GI: denies: Vomiting, Diarrhea Musculoskeletal: reports: Extremity pain, Extremity swelling. denies: Neck pain, Back pain PD PAST MEDICAL HISTORY - Past Medical History Cardiovascular: Hypertension, High cholesterol Respiratory: None Endocrine/Autoimmune: None GI: None : None HEENT: None Psych: Anxiety Musculoskeletal: Other Derm: Other - Past Surgical History Past Surgical History: Yes General: Appendectomy Cardiovascular: Vascular surgery HEENT: Tonsil/Adenoidectomy - Present Medications Home Medications: Ambulatory Orders Medication Instructions Recorded Confirmed cloNIDine [Catapres] 0.1 mg PO DAILY 09/14/13 03/13/21 Amlodipine Besylate 5 mg PO DAILY 08/18/15 01/30/21 Olmesartan Medoxomil 20 mg PO DAILY 03/09/17 03/13/21 Zolpidem Tartrate 5 mg PO QPM PRN 03/19/17 03/13/21 Metoprolol Tartrate [Lopressor] 50 mg PO DAILY 08/30/20 03/13/21 Ibuprofen [Advil] 1 tab PO DAILY PRN 12/01/20 03/13/21 Multivitamin [Daily Multiple 1 tab PO DAILY 12/01/20 03/13/21 Vitamin] Doxycycline Hyclate [Vibramycin] 100 mg PO BID #28 cap 02/20/21 03/13/21 Triamcinolone 0.1% Cream [Kenalog 1 applic TOP BID #15 gm 02/20/21 03/13/21 0.1% Cream] Triamcinolone 0.1% Cream [Kenalog 1 applic TOP BID #80 gm 02/27/21 0.1% Cream] cephALEXin [Keflex] 500 mg PO Q6H #28 cap 04/04/21 - Allergies Allergies/Adverse Reactions: Allergies Allergy/AdvReac Type Severity Reaction Status Date / Time strawberry Allergy Unknown Verified 04/04/21 10:03 venom-honey bee Allergy swelling Verified 04/04/21 10:03 [bee venom (honey bee)] - Social History Does the pt smoke?: No Smoking Status: Never smoker Does the pt drink ETOH?: Yes Does the pt have substance abuse?: No - Immunizations Immunizations are current?: Yes - POLST Patient has POLST: No POLST Status: Full Code PD ED PE NORMAL - Vitals Vital signs reviewed: Yes (Hypertensive) - General General: Alert and oriented X 3, No acute distress, Well developed/nourished - HEENT HEENT: Atraumatic, PERRL, EOMI - Respiratory Respiratory: No respiratory distress - Derm Derm: Normal color, Warm and dry, No rash - Extremities Extremities: No deformity, Other (There are surgical scars from the vein stripping which appear to be healed without signs of inflammation along one of the aspects of the surgical site in the medial right thigh there is an area 4 cm x 3 cm that is raised erythematous and mildly tender there is no fluctuance.) - Neuro Neuro: Alert and oriented X 3, heart doctor 2-12 intact, No motor deficit, No sensory deficit, Normal speech Eye Opening: Spontaneous Motor: Obeys Commands Verbal: Oriented GCS Score: 15 - Psych Psych: Normal mood, Normal affect Results - Vitals Vitals: Vital Signs - 24 hr 04/04/21 09:57 Temperature 36.7 C Heart Rate 98 Respiratory 16 Rate Blood Pressure 148/90 H O2 Saturation 98 Oxygen O2 Source Room air Procedures - Abscess I&D (location) right thigh Preparation: Confirmed with ultrasound, Chlorhexadine, Lidocaine 1% Incision: Incised with scalpel, Other (Incision deeply with exploration revealed no pus. I suspect the area is a hematoma. There is some other overlying erythema.). No: Purulent drainage Other: Pt tolerated well, Dressing applied, Antibiotic prescribed - Bedside sono Bedside sono by EMP: With bedside ultrasound the area of interest is examined there is a fluid collection under the skin does not appear to be compressible. There is no flow to the fluid. PD MEDICAL DECISION MAKING - ED course Complexity details: reviewed old records, re-evaluated patient, considered differential, d/w patient ED course: 80-year-old female with a raised erythematous tender area over a prior surgical site concerning for the abscess. The area was nonfluctuant however when I examined it with bedside ultrasound there appeared to be clearly fluid under the skin. This however was not compressible. I did do incision and found no pus. I suspect the area of interest is a hematoma with overlying erythema to the skin. She has had infection in the skin we will place her on some antibiotic. Departure - Departure Disposition: 01 Home, Self Care Clinical Impression: Hematoma, Superficial skin infection Condition: Stable Instructions: ED Hematoma, ED Staph Infec Abx Tx Only Follow-Up: Andre Spring MD [Primary Care Provider] - Prescriptions: cephALEXin [Keflex] 500 mg PO Q6H #28 cap
[2021-04-04 12:14] VITALS: BP 146/96
== END 2021-04-04 12:20 | disposition home or self-care (01) ==
LOC: ED 09:50
DX: L08.9 Local infection of the skin and subcutaneous tissue, unspecified (principal); B95.8 Unspecified staphylococcus as the cause of diseases classified elsewhere
CPT/HCPCS: 10060

== ENCOUNTER 2021-05-08 15:56 | Emergency (ER) | payer MEDICARE ==
[2021-05-08 16:19] VITALS: BP 172/108
--- NOTE | 2021-05-08 16:57 | ED Physician Documentation ---
History of Present Illness - Stated complaint Stated Complaint: RT FOOT WOUND OOZE - Chief complaint Chief Complaint: Wound - Additonal information Additional information: 81-year-old female presents emergency department for evaluation of a wound on her posterior Achilles that has been present for About 6 months. She has been followed by the wound clinic and over time it has slowly healed. She currently has been off antibiotics for about 1 month. She is applying a foam and Mepilex dressing to it. It had been healing routinely until this afternoon when she noticed a large gush of fluid from behind the bandage and she became concerned coming to the ER today. There is no change in the appearance of the wound per patient. There are no fevers increased leg swelling or redness. Review of Systems Constitutional: reports: Reviewed and negative Nose: reports: Reviewed and negative Throat: reports: Reviewed and negative Skin: reports: Lesions (Ulceration right posterior heel) PD PAST MEDICAL HISTORY - Past Medical History Past Medical History: Yes Cardiovascular: Hypertension, High cholesterol Respiratory: None Endocrine/Autoimmune: None GI: None : None HEENT: None Psych: Anxiety Musculoskeletal: Other Derm: Other - Past Surgical History Past Surgical History: Yes General: Appendectomy Cardiovascular: Vascular surgery HEENT: Tonsil/Adenoidectomy - Present Medications Home Medications: Ambulatory Orders Medication Instructions Recorded Confirmed cloNIDine [Catapres] 0.1 mg PO DAILY 09/14/13 03/13/21 Olmesartan Medoxomil 20 mg PO DAILY 03/09/17 03/13/21 Zolpidem Tartrate 5 mg PO QPM PRN 03/19/17 03/13/21 Metoprolol Tartrate [Lopressor] 50 mg PO DAILY 08/30/20 03/13/21 Ibuprofen [Advil] 1 tab PO DAILY PRN 12/01/20 03/13/21 Multivitamin [Daily Multiple 1 tab PO DAILY 12/01/20 03/13/21 Vitamin] Apixaban [Eliquis] 5 mg ORAL DAILY 05/08/21 05/08/21 Rosuvastatin Calcium [Crestor] 5 mg PO DAILY 05/08/21 05/08/21 - Allergies Allergies/Adverse Reactions: Allergies Allergy/AdvReac Type Severity Reaction Status Date / Time strawberry Allergy Unknown Verified 05/08/21 16:19 venom-honey bee Allergy swelling Verified 05/08/21 16:19 [bee venom (honey bee)] - Social History Does the pt smoke?: No Smoking Status: Never smoker Does the pt drink ETOH?: Yes Does the pt have substance abuse?: No - Immunizations Immunizations are current?: Yes - POLST Patient has POLST: No POLST Status: Full Code PD ED PE EXPANDED - General General: Alert, No acute distress - Extremities Extremities: Right leg (Chronic ulceration right posterior heel just below the Achilles that has a firm round area of chronic scar tissue with a very small center ulceration with a white eschar. No significant tenderness drainage or erythema.) Results - Vitals Vitals: Vital Signs - 24 hr 05/08/21 16:00 Temperature 36.1 C L Heart Rate 64 Respiratory 16 Rate Blood Pressure 172/108 H O2 Saturation 93 Oxygen O2 Source Room air PD MEDICAL DECISION MAKING - ED course Complexity details: d/w patient, d/w family ED course: 81-year-old female presents the emergency department for evaluation of a chronic ulceration on her right posterior heel that is been present for at least 8 months and been followed by wound therapy. It has been slowly healing over time and is typically covered with Mepilex. Patient noted a gush of fluid this afternoon when at home and became concerned that it may be acutely infected however by patient's own report and her daughter's report it appears normal. There was no surrounding erythema significant tenderness noted. At this time I would defer antibiotics given any secondary findings consistent concerning for cellulitis. What the fluid loss was is unclear. I have advised patient to continue her routine treatment of this ulceration if any further concerns arise return to the ER for a second look. She will continue to follow-up with wound clinic on Tuesday. Departure - Departure Disposition: Home, Self Care Clinical Impression: Right foot ulcer Qualifiers: Non-pressure ulcer stage: unspecified non-pressure ulcer stage Qualified Code(s): L97.519 - Non-pressure chronic ulcer of other part of right foot with unspecified severity Comments: The wounds on the back of your head he heel as well as on your foot do appear to be healing. Please continue to apply the dressings as you have been. If you develop any fevers, increased redness, have fevers milky drainage or have concerns that it is getting infected and please return to the ER for a second look.
== END 2021-05-08 17:06 | disposition home or self-care (01) ==
LOC: ED 15:56
DX: L97.419 Non-pressure chronic ulcer of right heel and midfoot with unspecified severity (principal); I10 Essential (primary) hypertension; Z79.01 Long term (current) use of anticoagulants
CPT/HCPCS: 99281; 99283

== ENCOUNTER 2021-05-15 09:41 | Emergency (ER) | payer MEDICARE ==
--- NOTE | 2021-05-15 12:26 | Ultrasound Report ---
PROCEDURE: Duplex Ext Veins Right INDICATIONS: swelling and pain TECHNIQUE: Real-time imaging, as well as color and pulse Doppler interrogation, were performed of the lower extr emity deep veins from the inguinal ligament to the popliteal fossa. COMPARISON: None. FINDINGS: The deep veins are normally compressible, and free of intraluminal thrombus. Color and pu lse Doppler demonstrate normal phasic intraluminal flow. There is normal augmentation response to di stal compression maneuver. There is a complex focus of echogenicity in the medial lower extremity me asuring 4.5 x 1.9 x 2.8 cm. It is noted that this is within the area of recent surgery. Calcified aortic disease is noted with a nonocclusive narrowing of the superficial proximal artery. IMPRESSION: 1. No deep venous thrombosis. 2. Complex focus of echogenicity within the medial lower extremity near recent surgical site. This co uld represent abscess or hematoma. 3. Incidental note of atherosclerotic arterial disease. Reviewed by: Michelle Medrano MD on 05/15/2021 12:25 PM PDT Approved by: Michelle Medrano MD on 05/15/2021 12:25 PM PDT Station ID: [id number]
[2021-05-15 12:50] VITALS: BP 148/89
--- NOTE | 2021-05-15 13:18 | ED Physician Documentation ---
History of Present Illness - Stated complaint Stated Complaint: RT LEG SWELLING - Chief complaint Chief Complaint: Ext Problem - History obtained from History obtained from: Patient - History of Present Illness Timing: Today - Additonal information Additional information: 81-year-old female the history of peripheral vascular disease has had a vascular procedure done to her right thigh and following that she did have what appeared to be an abscess and turned out to be a hematoma. She has been evaluated at the wound clinic and today they noticed swelling and redness to the inner aspect of the thigh again and have asked the patient to come to the emergency department to get ultrasound done to rule out DVT. The patient is currently not on antibiotic and she is having some improvement in the healing of the wounds to her lower extremity. She does have an appointment to see her vascular surgeon next week. Review of Systems Constitutional: denies: Fever Ears: denies: Ear pain Nose: denies: Congestion Throat: denies: Sore throat Respiratory: denies: Cough GI: denies: Vomiting, Diarrhea PD PAST MEDICAL HISTORY - Past Medical History Cardiovascular: Hypertension, High cholesterol Respiratory: None Endocrine/Autoimmune: None GI: None : None HEENT: None Psych: Anxiety Musculoskeletal: Other Derm: Other - Past Surgical History Past Surgical History: Yes General: Appendectomy Cardiovascular: Vascular surgery HEENT: Tonsil/Adenoidectomy - Present Medications Home Medications: Ambulatory Orders Medication Instructions Recorded Confirmed cloNIDine [Catapres] 0.1 mg PO DAILY 09/14/13 03/13/21 Olmesartan Medoxomil 20 mg PO DAILY 03/09/17 03/13/21 Zolpidem Tartrate 5 mg PO QPM PRN 03/19/17 03/13/21 Metoprolol Tartrate [Lopressor] 50 mg PO DAILY 08/30/20 03/13/21 Ibuprofen [Advil] 1 tab PO DAILY PRN 12/01/20 03/13/21 Multivitamin [Daily Multiple 1 tab PO DAILY 12/01/20 03/13/21 Vitamin] Apixaban [Eliquis] 5 mg ORAL DAILY 05/08/21 05/08/21 Rosuvastatin Calcium [Crestor] 5 mg PO DAILY 05/08/21 05/08/21 cephALEXin [Keflex] 500 mg PO Q6H #28 cap 05/15/21 - Allergies Allergies/Adverse Reactions: Allergies Allergy/AdvReac Type Severity Reaction Status Date / Time strawberry Allergy Unknown Verified 05/15/21 09:53 venom-honey bee Allergy swelling Verified 05/15/21 09:53 [bee venom (honey bee)] - Social History Does the pt smoke?: No Smoking Status: Never smoker Does the pt drink ETOH?: Yes Does the pt have substance abuse?: No - Immunizations Immunizations are current?: Yes - POLST Patient has POLST: No POLST Status: Full Code PD ED PE NORMAL - Vitals Vital signs reviewed: Yes (tachy and hypertensive ) - General General: Alert and oriented X 3, No acute distress, Well developed/nourished - HEENT HEENT: Atraumatic, PERRL, EOMI - Respiratory Respiratory: No respiratory distress - Derm Derm: Normal color, Warm and dry, No rash - Extremities Extremities: Other (There is a well-healed surgical scar to the medial aspect of the right thigh. Toward the bottom of this incision there is an area of warmth and swelling that is firm. There is no fluctuance. There is erythema surrounding this and along the incision itself. There is not particularly tender. 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 2-12 intact, No motor deficit, No sensory deficit, Normal speech Eye Opening: Spontaneous Motor: Obeys Commands Verbal: Oriented GCS Score: 15 - Psych Psych: Normal mood, Normal affect Results - Vitals Vitals: Vital Signs - 24 hr 05/15/21 05/15/21 09:48 12:49 Temperature 36.2 C L 36.1 C L Heart Rate 123 H 105 H Respiratory 16 18 Rate Blood Pressure 111/83 H 148/89 H O2 Saturation 96 100 Oxygen O2 Source Room air PD MEDICAL DECISION MAKING - ED course Complexity details: reviewed results, re-evaluated patient, considered differential, d/w patient, d/w family ED course: 81-year-old female again with swelling redness and tenderness to the medial aspect of the right thigh does not have DVT on formal ultrasound evaluation. I did examine the patient's fluid collection that was discovered in the medial aspect of the right thigh and I found this to be noncompressible and similar to what was seen previously about 1 month ago when I attempted to adriana and drain what I thought was an abscess. This turned out to be a hematoma. I suspect this is similar today. The area is erythematous and we will place the patient on antibiotic and she will follow up with her vascular surgeon as planned.She is instructed return to the emergency department for progression of symptoms or development of new symptoms. Departure - Departure Disposition: 01 Home, Self Care Clinical Impression: Hematoma of right thigh Qualifiers: Encounter type: initial encounter Qualified Code(s): S70.11XA - Contusion of right thigh, initial encounter Condition: Stable Instructions: ED Hematoma Follow-Up: Andre Spring MD [Primary Care Provider] - Woodrow Dennis MD [Physician No Access] - Prescriptions: cephALEXin [Keflex] 500 mg PO Q6H #28 cap Comments: Today the swelling in your right thigh appears to be likely a hematoma. Today we did not attempt to drain this. We did place you on some antibiotic. Over the next several days if the area becomes more intensely red, swells more, becomes markedly more painful, or you develop a fever return to the emergency department for reevaluation. Otherwise follow-up with your vascular surgeon on Tuesday as planned. Discharge Date/Time: 05/15/21 13:27
== END 2021-05-15 13:27 | disposition home or self-care (01) ==
LOC: ED 09:41
DX: S70.11XA Contusion of right thigh, initial encounter (principal); X58.XXXA Exposure to other specified factors, initial encounter; I73.9 Peripheral vascular disease, unspecified; I10 Essential (primary) hypertension; Z79.01 Long term (current) use of anticoagulants
CPT/HCPCS: 99284

== ENCOUNTER 2021-07-26 18:12 | Emergency (ER) | payer MEDICARE ==
--- NOTE | 2021-07-26 18:25 | ED Physician Documentation ---
History of Present Illness - Stated complaint Stated Complaint: RT LEG SWELL - Chief complaint Chief Complaint: Ext Problem - History obtained from History obtained from: Patient, Family - Additonal information Additional information: Patient is an 81-year-old female who presents with right leg pain and swelling. Patient has chronic lower leg edema due to a high prior femme pop and has chronic venous stasis of the right leg with chronic ulcerations. She feels as though she has increased swelling and pain behind the right knee. She is primarily increased pain, swelling seems about baseline according to patient. No erythema. No known injury. Wanted to be sure she did not have a blood clot. Patient is on Eliquis and metoprolol. Will review in the monitor, patient noted to be in A. fib as well as per auscultation. The patient states no history of A. fib to her knowledge, and denies any chest pain, heart palpitations, shortness of breath. Review of Systems Ten Systems: 10 systems reviewed and negative Cardiac: reports: Pedal edema. denies: Chest pain / pressure, Palpitations, Calf pain Respiratory: denies: Dyspnea, Cough, Hemoptysis, Wheezing Skin: reports: Reviewed and negative Musculoskeletal: reports: Extremity pain PD PAST MEDICAL HISTORY - Past Medical History Past Medical History: Yes Cardiovascular: Hypertension, High cholesterol Respiratory: None Endocrine/Autoimmune: None GI: None : None HEENT: None Psych: Anxiety Musculoskeletal: Other Derm: Other - Past Surgical History Past Surgical History: Yes General: Appendectomy Cardiovascular: Vascular surgery HEENT: Tonsil/Adenoidectomy - Present Medications Home Medications: Ambulatory Orders Medication Instructions Recorded Confirmed cloNIDine [Catapres] 0.1 mg PO DAILY 09/14/13 07/26/21 Olmesartan Medoxomil 20 mg PO DAILY 03/09/17 07/26/21 Zolpidem Tartrate 5 mg PO QPM PRN 03/19/17 07/26/21 Metoprolol Tartrate [Lopressor] 50 mg PO DAILY 08/30/20 07/26/21 Multivitamin [Daily Multiple 1 tab PO DAILY 12/01/20 07/26/21 Vitamin] Apixaban [Eliquis] 5 mg ORAL BID 05/08/21 07/26/21 Rosuvastatin Calcium [Crestor] 5 mg PO DAILY 05/08/21 07/26/21 amLODIPine [Norvasc] 1 tablet ORAL DAILY 07/26/21 07/26/21 - Allergies Allergies/Adverse Reactions: Allergies Allergy/AdvReac Type Severity Reaction Status Date / Time strawberry Allergy Unknown Verified 07/26/21 18:18 venom-honey bee Allergy swelling Verified 07/26/21 18:18 [bee venom (honey bee)] - Social History Does the pt smoke?: No Smoking Status: Never smoker Does the pt drink ETOH?: Yes Does the pt have substance abuse?: No - Immunizations Immunizations are current?: Yes - POLST Patient has POLST: No POLST Status: Full Code PD ED PE NORMAL - Vitals Vital signs reviewed: Yes - General General: Alert and oriented X 3, No acute distress, Well developed/nourished - HEENT HEENT: Atraumatic, Moist mucous membranes, Pharynx benign - Neck Neck: Supple, no meningeal sign, No JVD - Cardiac Cardiac: No murmur, Other (irregularly irreg) - Respiratory Respiratory: No respiratory distress, Clear bilaterally - Abdomen Abdomen: Normal bowel sounds, Soft, Non tender, Non distended - Derm Derm: Other (Chronic venous stasis changes to the right leg mild redness which is chronic to the right lower leg and ankle. There is a ulceration on the medial right heel that is chronic. There is generalized swelling of the right leg from thigh to foot. The right knee is generally swollen, no erythema. Ther) - Extremities Extremities: No: No tenderness to palpate, Normal ROM s pain, No edema - Neuro Neuro: Alert and oriented X 3 Eye Opening: Spontaneous Motor: Obeys Commands Verbal: Oriented GCS Score: 15 Results - Vitals Vitals: Vital Signs - 24 hr 07/26/21 07/26/21 07/26/21 18:18 18:40 18:43 Temperature 36.9 C Heart Rate 117 H 110 H 108 H Respiratory 17 22 24 Rate Blood Pressure 151/92 H 117/96 H 117/96 H O2 Saturation 100 96 96 Oxygen O2 Source Room air - EKG (time done) No standard instances Rate: Rate (enter#) (110) Rhythm: Atrial fibrillation Compare to prior EKG: Changed from prior EKG (prior NSR) Computer interpretation: Agree with computer - Labs Labs: Laboratory Tests 07/26/21 07/26/21 07/26/21 19:19 19:19 19:19 WBC 8.8 RBC 4.81 Hgb 15.2 Hct 44.5 MCV 92.5 MCH 31.6 H MCHC 34.2 RDW 13.2 Plt Count 219 MPV 10.2 Neut # (Auto) 6.3 Lymph # (Auto) 1.3 L [place] # (Auto) 1.0 Eos # (Auto) 0.1 Baso # (Auto) 0.1 Absolute Nucleated RBC 0.00 Nucleated RBC % 0.0 Sodium 137 Potassium 3.4 L Chloride 102 Carbon Dioxide 25 Anion Gap 10.0 BUN 13 Creatinine 0.5 Estimated GFR (MDRD) 118 Glucose 125 H Calcium 9.3 Total Bilirubin 0.8 AST 18 ALT 14 Alkaline Phosphatase 68 Troponin I High Sens 5.2 Total Protein 7.2 Albumin 3.8 Globulin 3.4 Albumin/Globulin Ratio 1.1 Lipase 34 PD MEDICAL DECISION MAKING - ED course Complexity details: reviewed old records, reviewed results, re-evaluated patient, considered differential, d/w patient, d/w family ED course: 81-year-old female with past medical history as noted above presented with right posterior knee pain and swelling. We obtained a Venous ultrasound which was negative for DVT but did show a Miles's cyst. Patient was counseled on the supportive management for this problem. She was also noted to be in atrial fibrillation here in the ER. Her heart rate was between 100-120. Her blood pressure was stable. She declined any intervention such as IV metoprolol to help with her heart rate and stated that she was asymptomatic. She wanted to continue the PO metoprolol she had at home and she was already on Eliquis 5 mg twice daily, patient is unsure what she is on this for but no known history of A. fib per patient or per my review of her chart. I have asked that she follow- up with her primary care provider this week to reevaluate, this may be paroxysmal or chronic A. fib. She may require additional medication for rate control but declined further management or evaluation at this time. I reviewed return precautions in detail with the patient. Departure - Departure Disposition: 01 Home, Self Care Clinical Impression: Bakers cyst Qualifiers: Laterality: right Qualified Code(s): M71.21 - Synovial cyst of popliteal space [Miles], right knee Atrial fibrillation Qualifiers: Atrial fibrillation type: unspecified Qualified Code(s): I48.91 - Unspecified atrial fibrillation Condition: Good Instructions: ED Afib Comments: You presented with the right leg pain and swelling. We did an ultrasound which was negative for a deep vein thrombosis but you are noted to have a Miles's cyst behind the right knee. These can be painful at times, typically improve on their own. You may follow-up with your primary care provider for ongoing management of this. You are also noted to be in atypical heart rhythm here in the ER called atrial fibrillation. Your heart rate was slightly elevated with a normal blood pressure. I discussed giving you medication for your heart rhythm but you declined and you are on metoprolol at home which you can continue to take and may help with this rhythm. You are also already on Eliquis which is a blood thinner and you should continue this. Please follow-up with your primary doctor this week to recheck your heart rhythm and discuss potentially increasing her metoprolol if needed or adding additional medication for atrial fibrillation. Return to the ER if you develop chest pain, palpitations, weakness or dizziness, shortness of breath or other new concerns.
[2021-07-26 19:24] LABS: BASOPHILS # (AUTO) 0.1 10^3/uL (0.0-0.1); BASOPHILS % (AUTO) 0.7 %; EOSINOPHILS # (AUTO) 0.1 10^3/uL (0.0-0.7); EOSINOPHILS % (AUTO) 1.1 %; HCT - HEMATOCRIT 44.5 % (37.0-47.0); HGB - HEMOGLOBIN 15.2 g/dL (12.0-16.0); LYMPHOCYTES # (AUTO) 1.3 10^3/uL (1.5-3.5); LYMPHOCYTES % (AUTO) 14.5 %; MEAN CORPUSCULAR HEMOGLOBIN 31.6 pg (27.0-31.0); MEAN CORPUSCULAR HGB CONC 34.2 g/dL (32.0-36.0); MEAN CORPUSCULAR VOLUME 92.5 fL (81.0-99.0); MEAN PLATELET VOLUME 10.2 fL (7.9-10.8); MONOCYTES % (AUTO) 11.1 %; NEUTROPHILS # (AUTO) 6.3 10^3/uL (1.5-6.6); NEUTROPHILS % (AUTO) 72.3 %; PLT - PLATELET COUNT 219 10^3/uL (130-450); RED BLOOD COUNT 4.81 10^6/uL (4.20-5.40); RED CELL DISTRIBUTION WIDTH 13.2 % (12.0-15.0); WHITE BLOOD COUNT 8.8 x10^3/uL (4.8-10.8)
[2021-07-26 19:46] LABS: ALBUMIN 3.8 g/dL (3.2-5.5); ALBUMIN/GLOBULIN RATIO 1.1 (1.0-2.2); BILIRUBIN,TOTAL 0.8 mg/dL (0.2-1.0); CALCIUM 9.3 mg/dL (8.5-10.3); CREATININE 0.5 mg/dL (0.4-1.0); POTASSIUM 3.4 mmol/L (3.5-5.0); TOTAL PROTEIN 7.2 g/dL (6.7-8.2)
--- NOTE | 2021-07-26 20:24 | Ultrasound Report ---
PROCEDURE: Duplex Ext Veins Right INDICATIONS: right leg pain/swelling TECHNIQUE: Real-time imaging, as well as color and pulse Doppler interrogation, were performed of the lower extr emity deep veins from the inguinal ligament to the popliteal fossa. COMPARISON: None. FINDINGS: The deep veins are normally compressible, and free of intraluminal thrombus. Color and pu lse Doppler demonstrate normal phasic intraluminal flow. There is normal augmentation response to di stal compression maneuver. There is fluid in the medial popliteal area measuring 2.0 x 4.6 consisten t with a Miles's cyst. IMPRESSION: No DVT in the right lower extremity. Reviewed by: Jace Frazier on 07/26/2021 8:23 PM PDT Approved by: Jace Frazier on 07/26/2021 8:23 PM PDT Station ID: [id number]
[2021-07-26 21:04] VITALS: BP 170/98
== END 2021-07-26 21:05 | disposition home or self-care (01) ==
LOC: ED 18:12
DX: M71.21 Synovial cyst of popliteal space [Baker], right knee (principal); I10 Essential (primary) hypertension; I48.91 Unspecified atrial fibrillation; Z79.01 Long term (current) use of anticoagulants
CPT/HCPCS: 36415; 80053; 83690; 84484; 85025; 93005; 99283; 99284

== ENCOUNTER 2022-04-10 10:54 | Emergency (ER) | payer MEDICARE ==
[2022-04-10 11:11] VITALS: BP 148/98
--- NOTE | 2022-04-10 12:00 | XRAY Report ---
PROCEDURE: Wrist 4 View LT INDICATIONS: wrist pain, swelling, denies injury TECHNIQUE: 4 views of the wrist were acquired. COMPARISON: None FINDINGS: Bones: No fractures or dislocations. No suspicious bony lesions. Degenerative changes are present. Severe first CMC degenerative narrowing is present. Scaphoid view: No visualized fracture. Soft tissues: No suspicious soft tissue calcifications. IMPRESSION: Arthritic changes as above. No visualized acute fracture or dislocation. However, occult injury canno t be excluded. Recommend short interval imaging follow-up in 7-10 days as clinically indicated for ad ditional evaluation. Reviewed by: Michelle Medrano MD on 04/10/2022 11:59 AM PDT Approved by: Michelle Medrano MD on 04/10/2022 11:59 AM PDT Station ID: [id number]
--- NOTE | 2022-04-10 13:16 | ED Physician Documentation ---
History of Present Illness - Stated complaint Stated Complaint: L WRIST INJ - Chief complaint Chief Complaint: Ext Problem - Additonal information Additional information: 82-year-old female presents emergency department for evaluation of acute left wrist pain and swelling without any recent trauma. Symptoms began 2 days ago she first noted when she woke up. She denies any fevers. Despite compress, Tylenol and Motrin she has had worsening pain and swelling. She does have a history of A. fib for which she is anticoagulated. Review of Systems Constitutional: denies: Fever, Chills Eyes: reports: Reviewed and negative Throat: reports: Reviewed and negative Cardiac: reports: Reviewed and negative Respiratory: reports: Reviewed and negative GI: reports: Reviewed and negative Skin: denies: Rash, Lesions, Laceration (s), Bite / sting Musculoskeletal: reports: Extremity pain PD PAST MEDICAL HISTORY - Past Medical History Cardiovascular: Hypertension, High cholesterol Respiratory: None Neuro: None Endocrine/Autoimmune: None GI: None MEDIA LIBRARIAN: None : None HEENT: None Psych: Anxiety Musculoskeletal: Other Derm: Other - Past Surgical History Past Surgical History: Yes General: Appendectomy Cardiovascular: Vascular surgery HEENT: Tonsil/Adenoidectomy - Present Medications Home Medications: Ambulatory Orders Medication Instructions Recorded Confirmed cloNIDine [Catapres] 0.1 mg PO DAILY 09/14/13 07/26/21 Olmesartan Medoxomil 20 mg PO DAILY 03/09/17 07/26/21 Zolpidem Tartrate 5 mg PO QPM PRN 03/19/17 07/26/21 Metoprolol Tartrate [Lopressor] 50 mg PO DAILY 08/30/20 07/26/21 Multivitamin [Daily Multiple 1 tab PO DAILY 12/01/20 07/26/21 Vitamin] Apixaban [Eliquis] 5 mg ORAL BID 05/08/21 07/26/21 Rosuvastatin Calcium [Crestor] 5 mg PO DAILY 05/08/21 07/26/21 amLODIPine [Norvasc] 1 tablet ORAL DAILY 07/26/21 07/26/21 predniSONE [Deltasone] 40 mg PO DAILY 4 Days #8 tablet 04/10/22 - Allergies Allergies/Adverse Reactions: Allergies Allergy/AdvReac Type Severity Reaction Status Date / Time strawberry Allergy Unknown Verified 04/10/22 11:11 venom-honey bee Allergy swelling Verified 04/10/22 11:11 [bee venom (honey bee)] - Social History Does the pt smoke?: No Smoking Status: Never smoker Does the pt drink ETOH?: Yes Does the pt have substance abuse?: No - Immunizations Immunizations are current?: Yes - POLST Patient has POLST: No POLST Status: Full Code Results - Vitals Vitals: Vital Signs - 24 hr 04/10/22 11:07 Temperature 36.6 C Heart Rate 48 L Respiratory 16 Rate Blood Pressure 148/98 H O2 Saturation 98 Oxygen O2 Source Room air - Rads (name of study) left wrist Radiology: Final report received (Arthritic changes. No visualized fracture or dislocation) PD MEDICAL DECISION MAKING - ED course Complexity details: considered differential, d/w patient, d/w family ED course: 82-year-old female presents emergency department for evaluation of 2 days acute left wrist pain and swelling. No trauma. She does have obvious arthritis in the hand. X-ray was without obvious source. Because she is anticoagulated on Eliquis for her history of A. fib she cannot take NSAID medication. Therefore she will be given 4 days of prednisone to help with pain and inflammation. Given lack of fevers lower suspicion for septic arthritis. In addition no source. Patient is advised close follow-up with her primary care provider. Emergent return precautions discussed Departure - Departure Disposition: 01 Home, Self Care Clinical Impression: Swelling of joint, wrist, left, Arthritis Condition: Stable Record reviewed to determine appropriate education?: Yes Prescriptions: predniSONE [Deltasone] 40 mg PO DAILY 4 Days #8 tablet Comments: Estefanía you are seen today for pain in your left wrist and hand for the last 2 days. The x-rays do show some arthritis but nothing to suggest a broken bone or fracture. I suspect that you are having an arthritis inflammation flare. Please fill the prescription for the steroids and begin taking as directed. Use the wrist splint when out of bed. I recommend you have close follow-up with your primary care provider. If you find that your symptoms or not improving you may benefit from referral to orthopedics. If you develop any fevers please return to the emergency department.
== END 2022-04-10 13:45 | disposition home or self-care (01) ==
LOC: ED 10:54
DX: M19.032 Primary osteoarthritis, left wrist (principal); M18.12 Unilateral primary osteoarthritis of first carpometacarpal joint, left hand; I48.91 Unspecified atrial fibrillation; Z79.01 Long term (current) use of anticoagulants; I10 Essential (primary) hypertension; E78.00 Pure hypercholesterolemia, unspecified; M25.432 Effusion, left wrist
CPT/HCPCS: 99282; 99283

== ENCOUNTER 2022-04-23 16:34 | Outpatient (CLI) | payer MEDICARE ==
[2022-04-23 17:19] LABS: ALBUMIN 3.9 g/dL (3.2-5.5); ALBUMIN/GLOBULIN RATIO 1.2 (1.0-2.2); ALKALINE PHOSPHATASE 53 IU/L (42-121); ALT ALANINE AMINOTRANSFERASE 19 IU/L (10-60); AST ASPARTATE AMINOTRANSFERASE 22 IU/L (10-42); BILIRUBIN,TOTAL 0.6 mg/dL (0.2-1.0); BUN - BLOOD UREA NITROGEN 15 mg/dL (6-20); CALCIUM 9.6 mg/dL (8.5-10.3); CARBON DIOXIDE - CO2 29 mmol/L (21-32); CHLORIDE 101 mmol/L (101-111); CHOL/HDL RATIO 2.5 (<4.4); CHOLESTEROL 177 mg/dL; CREATININE 0.7 mg/dL (0.4-1.0); GFR - MDRD 80 (>89); GLUCOSE 91 mg/dL (70-100); HDL CHOLESTEROL 70 mg/dL; LDL CHOLESTEROL,CALCULATED 86 mg/dL; LDL/HDL RATIO 1.2 (<4.4); POTASSIUM 3.8 mmol/L (3.5-5.0); SODIUM 136 mmol/L (135-145); TOTAL PROTEIN 7.1 g/dL (6.7-8.2); TRIGLYCERIDES 106 mg/dL; VLDL CHOLESTEROL 21 mg/dL
[2022-04-23 17:20] LABS: THYROID STIMULATING HORMONE 1.88 uIU/mL (0.34-5.60)
[2022-04-23 17:39] LABS: CRP - C-REACTIVE PROTEIN < 1.0 mg/dL (0-1.0)
[2022-04-23 18:43] LABS: RHEUMATOID FACTOR NEGATIVE (Negative)
[2022-04-24 17:08] LABS: ANTI-DNA (DS) AB QN 1 IU/mL (0-9); CENTROMERE B ANTIBODIES <0.2 AI (0.0-0.9); CHROMATIN ANTIBODIES <0.2 AI (0.0-0.9); JO-1 AB <0.2 AI (0.0-0.9); RIBOSOMAL P ANTIBODIES <0.2 AI (0.0-0.9); RNP ANTIBODIES <0.2 AI (0.0-0.9); SCLERODERMA-70 ANTIBODIES <0.2 AI (0.0-0.9); SJOGREN'S ANTI-SS-A <0.2 AI (0.0-0.9); SJOGREN'S ANTI-SS-B <0.2 AI (0.0-0.9); SMITH ANTIBODIES <0.2 AI (0.0-0.9); SMITH/RNP ANTIBODIES <0.2 AI (0.0-0.9)
== END 2022-04-23 16:35 | disposition home or self-care (01) ==
LOC: LAB 16:34
PROVIDERS: ATTEND Family Medicine
DX: I10 Essential (primary) hypertension (principal); E78.2 Mixed hyperlipidemia; M10.9 Gout, unspecified; E56.9 Vitamin deficiency, unspecified; Z79.899 Other long term (current) drug therapy; I48.91 Unspecified atrial fibrillation
CPT/HCPCS: 36415; 80053; 80061; 82306; 82607; 82746; 83721; 84439; 84443; 85651; 86140; 86225; 86235; 86430

== ENCOUNTER 2022-07-04 10:02 | Emergency (ER) | payer MEDICARE ==
--- NOTE | 2022-07-04 10:17 | ED Physician Documentation ---
PD HPI URI - Stated complaint Stated Complaint: COUGH/SOA - Chief complaint Chief Complaint: Resp - History obtained from History obtained from: Patient, Family (daughter) - History of Present Illness Timing - onset: How many days ago (several) Timing duration: Days (several) Timing details: Gradual onset (had several days of malaise, cough, congestion, and chills/aches. Was improving yesterday and then today feeling weak and dyspnea. No chest pain.), Still present Associated symptoms: Chills, Nasal congestion, Dry cough, Dyspnea. No: Chest pain, NVD Contributing factors: No: Sick contact, Immunocompromised, COPD / asthma Worsened by: Activity Similar symptoms before: Has not had sx before Recently seen: Not recently seen Review of Systems Constitutional: reports: Chills, Myalgias. denies: Fever Nose: reports: Congestion Throat: denies: Sore throat Cardiac: reports: Palpitations (today feeling heart rate fast). denies: Chest pain / pressure, Pedal edema, Calf pain Respiratory: reports: Dyspnea, Cough. denies: Wheezing GI: reports: Nausea. denies: Abdominal Pain, Vomiting, Diarrhea Neurologic: reports: Generalized weakness. 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 : None HEENT: None Psych: Anxiety Musculoskeletal: Other Derm: Other - Past Surgical History Past Surgical History: Yes General: Appendectomy Cardiovascular: Vascular surgery HEENT: Tonsil/Adenoidectomy - Present Medications Home Medications: Ambulatory Orders Medication Instructions Recorded Confirmed cloNIDine [Catapres] 0.1 mg PO DAILY 09/14/13 07/04/22 Olmesartan Medoxomil 20 mg PO DAILY 03/09/17 07/04/22 Zolpidem Tartrate 5 mg PO QPM PRN 03/19/17 07/04/22 Metoprolol Tartrate [Lopressor] 50 mg PO DAILY 08/30/20 07/04/22 Multivitamin [Daily Multiple 1 tab PO DAILY 12/01/20 07/04/22 Vitamin] Apixaban [Eliquis] 5 mg ORAL BID 05/08/21 07/04/22 Rosuvastatin Calcium [Crestor] 5 mg PO DAILY 05/08/21 07/04/22 amLODIPine [Norvasc] 1 tablet ORAL DAILY 07/26/21 07/04/22 - Allergies Allergies/Adverse Reactions: Allergies Allergy/AdvReac Type Severity Reaction Status Date / Time strawberry Allergy Unknown Verified 04/10/22 11:11 venom-honey bee Allergy swelling Verified 04/10/22 11:11 [bee venom (honey bee)] - Social History Does the pt smoke?: No Smoking Status: Never smoker Does the pt drink ETOH?: Yes Does the pt have substance abuse?: No - Immunizations Immunizations are current?: Yes - POLST Patient has POLST: No POLST Status: Full Code PD ED PE NORMAL - Vitals Vital signs reviewed: Yes - General General: Alert and oriented X 3, No acute distress, Well developed/nourished - HEENT HEENT: Pharynx benign - Neck Neck: Supple, no meningeal sign, No adenopathy - Cardiac Cardiac: No murmur. No: RRR (rapid atrial fib) - Respiratory Respiratory: No respiratory distress, Clear bilaterally - Abdomen Abdomen: Soft, Non tender - Derm Derm: Normal color, Warm and dry, No rash - Extremities Extremities: Normal ROM s pain, No edema, No calf tenderness / cord Results - Vitals Vitals: Vital Signs - 24 hr 07/04/22 07/04/22 07/04/22 10:09 12:11 13:34 Temperature 36.7 C Heart Rate 103 H 133 H 110 H Respiratory 24 22 24 Rate Blood Pressure 148/105 H 150/100 H 155/75 H O2 Saturation 97 98 95 Oxygen O2 Source Room air - EKG (time done) 10:28 Rate: Rate (enter#) (155) Rhythm: Atrial fibrillation [place]: Normal Ischemia: ST depression. No: ST elevation c/w ischemia - Labs Labs: Laboratory Tests 07/04/22 07/04/22 07/04/22 10:55 10:55 10:55 WBC 12.8 H RBC 4.84 Hgb 15.4 Hct 45.8 MCV 94.6 MCH 31.8 H MCHC 33.6 RDW 13.1 Plt Count 216 MPV 10.2 Neut # (Auto) 11.2 H Lymph # (Auto) 0.7 L [place] # (Auto) 0.8 Eos # (Auto) 0.0 Baso # (Auto) 0.0 Absolute Nucleated RBC 0.00 Nucleated RBC % 0.0 Sodium 139 Potassium 3.8 Chloride 105 Carbon Dioxide 23 Anion Gap 11.0 BUN 17 Creatinine 0.7 Estimated GFR (MDRD) 80 L Glucose 122 H Calcium 9.4 Magnesium 1.8 Total Bilirubin 1.4 H AST 15 ALT 12 Alkaline Phosphatase 53 B-Natriuretic Peptide 522 H Total Protein 6.7 Albumin 3.5 Globulin 3.2 Albumin/Globulin Ratio 1.1 Lipase 30 - Rads (name of study) chest xray Radiology: Prelim report reviewed (no infiltrates nor chF.), See rad report PD MEDICAL DECISION MAKING - ED course Complexity details: reviewed results, re-evaluated patient (The patient is feeling okay here and her heart rate is down to 100-100 and 3:10 doses of IV metoprolol. I would like to see her consistently under 110. She would prefer going home sooner than later and so I do feel we can discharge her at this point. Increase her home metoprolol dose.), considered differential (sounds like viral illness for few days then was feeling some improved yesterday, and now dyspnea/weak today. Is in rapid atrial fib with history of chronic afib. Presume illness causing poor rate control. ) - Critical Care Time(min): 35 Time Includes: Direct patient care, Reassess patient (repeated doses IV meds for atrial fib rate controll. ) Data interpretation: Labs, Pulse ox Procedures excluded from critical care time: EKG Departure - Departure Disposition: 01 Home, Self Care Clinical Impression: Viral illness, Dehydration, Atrial fibrillation with rapid ventricular response Condition: Stable Instructions: ED Afib Follow-Up: Jethro Coffey MD [Physician No Access] - Comments: It does sound likely you had a recent viral illness. Your chest xray is good without signs of pneumonia. It is good that you feel like you are improving from that. I think your symptoms today probably related to the rapidity of your heart rate being approximately 150-160. Your heart rate with some extra doses of the metoprolol is now down approximately 100-110. I would suggest for the next several days, in addition to normal hydration and diet, to increase your metoprolol dose back to a whole tablet at night and a half a tablet in the morning (increased from the current half tablet twice daily). See how your heart rate and blood pressure are doing over the next several days. Discussed with your insurance healthcare consultant's office if you are doing well if they want to continue that current dosing or go back to the half tablet twice daily once you are feeling well again. Return if worsening symptoms again. Discharge Date/Time: 07/04/22 13:36
[2022-07-04] MEDS ORDERED: METOPROLOL 5 MG/5 ML VIAL IVP STA ×3 (10:47→12:31)
[2022-07-04] MEDS ORDERED: SODIUM CHLORIDE 0.9% 1,000 ML IV STA (10:47)
[2022-07-04 11:01] LABS: BASOPHILS % (AUTO) 0.3 %; EOSINOPHILS % (AUTO) 0.2 %; HCT - HEMATOCRIT 45.8 % (37.0-47.0); HGB - HEMOGLOBIN 15.4 g/dL (12.0-16.0); LYMPHOCYTES # (AUTO) 0.7 10^3/uL (1.5-3.5); LYMPHOCYTES % (AUTO) 5.6 %; MEAN CORPUSCULAR HEMOGLOBIN 31.8 pg (27.0-31.0); MEAN CORPUSCULAR HGB CONC 33.6 g/dL (32.0-36.0); MEAN CORPUSCULAR VOLUME 94.6 fL (81.0-99.0); MEAN PLATELET VOLUME 10.2 fL (7.9-10.8); MONOCYTES # (AUTO) 0.8 10^3/uL (0.0-1.0); MONOCYTES % (AUTO) 6.4 %; NEUTROPHILS # (AUTO) 11.2 10^3/uL (1.5-6.6); NEUTROPHILS % (AUTO) 87.2 %; PLT - PLATELET COUNT 216 10^3/uL (130-450); RED BLOOD COUNT 4.84 10^6/uL (4.20-5.40); RED CELL DISTRIBUTION WIDTH 13.1 % (12.0-15.0); WHITE BLOOD COUNT 12.8 x10^3/uL (4.8-10.8)
[2022-07-04 11:13] LABS: ALBUMIN 3.5 g/dL (3.2-5.5); ALBUMIN/GLOBULIN RATIO 1.1 (1.0-2.2); BILIRUBIN,TOTAL 1.4 mg/dL (0.2-1.0); CALCIUM 9.4 mg/dL (8.5-10.3); CREATININE 0.7 mg/dL (0.4-1.0); MAGNESIUM 1.8 mg/dL (1.7-2.8); POTASSIUM 3.8 mmol/L (3.5-5.0); TOTAL PROTEIN 6.7 g/dL (6.7-8.2)
--- NOTE | 2022-07-04 11:36 | XRAY Report ---
PROCEDURE: Chest 1 View X-Ray INDICATIONS: Chest Pain TECHNIQUE: One view of the chest was acquired. COMPARISON: None FINDINGS: Surgical changes and devices: None. Lungs and pleura: Hyperinflation and chronic interstitial changes without focal infiltrate, pneumoth orax or pleural effusion Mediastinum: Heart size enlarged. Atherosclerotic vascular calcification noted in the aortic arch. Bones and chest wall: No suspicious bony lesions. Overlying soft tissues appear unremarkable. IMPRESSION: Cardiomegaly without acute cardiopulmonary findings Reviewed by: Armani Acevedo MD on 07/04/2022 10:35 AM KRISTI Approved by: Armani Acevedo MD on 07/04/2022 10:35 AM AKLESLY Station ID: [id number]
[2022-07-04 13:36] VITALS: BP 155/75
== END 2022-07-04 13:36 | disposition home or self-care (01) ==
LOC: ED 10:02
DX: I48.20 Chronic atrial fibrillation, unspecified (principal); Z79.01 Long term (current) use of anticoagulants; B34.9 Viral infection, unspecified; E86.0 Dehydration; I10 Essential (primary) hypertension
CPT/HCPCS: 36415; 80053; 83690; 83735; 83880; 85025; 93005; 96361; 96374; 96376; 99291

== ENCOUNTER 2022-08-01 06:34 | Outpatient (CLI) | payer MEDICARE | END 2022-08-01 06:35 | disposition critical access hospital (66) | LOC: EMS 06:34 | DX: R06.02 Shortness of breath (principal); M79.89 Other specified soft tissue disorders; M25.432 Effusion, left wrist; I48.91 Unspecified atrial fibrillation | CPT/HCPCS: A0425; A0427 ==

== ENCOUNTER 2022-08-01 06:39 | Observation (INO) | payer MEDICARE ==
--- NOTE | 2022-08-01 07:14 | ED Physician Documentation ---
PD HPI DYSPNEA - Stated complaint Stated Complaint: SOA - Chief complaint Chief Complaint: Resp - History obtained from History obtained from: Patient, EMS - History of Present Illness Timing - onset: How many days ago (7-8 days of cough and some dyspnea which has increased significantly since yesterday. Hypoxic by EMS in 80s on their arrival. Significant sputum production. Wheezing noted by patient and EMS. Given nebulizer on route.) Timing - onset during: Rest Timing - details: Gradual onset, Still present Inciting event(s): URI Improved by: Rest, Sitting up Worsened by: Exertion, Laying flat, Coughing Associated symptoms: Fever, Cough, Wheezing. No: Hemoptysis, Bilateral edema (some chronic edema in right leg) Similar symptoms before: Diagnosis (pneumonia remote past.) Recently seen: Clinic, Emergency Dept (Jul 04 with palpitations. Had rapid atrial fib. No failure at that time and had metoprolol increased. Was okay until URI/cough/fever feeling a week ago.) Review of Systems Constitutional: denies: Fever, Chills Nose: reports: Congestion Throat: denies: Sore throat Cardiac: reports: Chest pain / pressure (sternal pain with coughing hard.), Palpitations (feeling heart fast similar to beginning of month with fast atrial fib. Had felt okay for 2 weeks or so in the interim.) Respiratory: reports: Dyspnea, Cough (productive of thicker yellow sputum. She did cough some good sputum thick samples here in ER.), Wheezing GI: denies: Abdominal Pain, Nausea, Vomiting, Diarrhea : denies: Dysuria Skin: denies: Rash, Lesions Musculoskeletal: reports: Joint swelling (left wrist, but does not remember injury, though did fall this morning when felt weak.) Neurologic: reports: Generalized weakness, Headache. 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 : None HEENT: None Psych: Anxiety Musculoskeletal: Other Derm: Other - Past Surgical History Past Surgical History: Yes General: Appendectomy Cardiovascular: Vascular surgery HEENT: Tonsil/Adenoidectomy - Present Medications Home Medications: Ambulatory Orders Medication Instructions Recorded Confirmed cloNIDine [Catapres] 0.1 mg PO DAILY 09/14/13 08/01/22 Olmesartan Medoxomil 20 mg PO DAILY 03/09/17 08/01/22 Zolpidem Tartrate 10 mg PO QPM PRN 03/19/17 08/01/22 Multivitamin [Daily Multiple 1 tab PO DAILY 12/01/20 08/01/22 Vitamin] Apixaban [Eliquis] 5 mg ORAL BID 05/08/21 08/01/22 Rosuvastatin Calcium [Crestor] 5 mg PO DAILY 05/08/21 08/01/22 amLODIPine [Norvasc] 2.5 mg ORAL DAILY 07/26/21 08/01/22 Cholecalciferol [Vitamin D3] 25 mcg PO DAILY 08/01/22 08/01/22 Fluticasone Propion/Salmeterol 2 inh INH BID 08/01/22 08/01/22 [Fluticasone-Salmeterol 250-50] Metoprolol Succinate [Toprol Xl] 25 mg PO DAILY 08/01/22 08/01/22 Metoprolol Succinate [Toprol Xl] 50 mg PO QPM 08/01/22 08/01/22 Mupirocin 2% Oint [Bactroban 2% 1 applic TOP DAILY 08/01/22 08/01/22 Oint] - Allergies Allergies/Adverse Reactions: Allergies Allergy/AdvReac Type Severity Reaction Status Date / Time strawberry Allergy Unknown Verified 08/01/22 06:50 venom-honey bee Allergy swelling Verified 08/01/22 06:50 [bee venom (honey bee)] - Social History Does the pt smoke?: No Smoking Status: Never smoker Does the pt drink ETOH?: Yes Does the pt have substance abuse?: No - Immunizations Immunizations are current?: Yes - POLST Patient has POLST: No POLST Status: Full Code PD ED PE NORMAL - Vitals Vital signs reviewed: Yes - General General: Alert and oriented X 3, Well developed/nourished, Other (appears distressed by wheezing and coughing, trouble breathing. ) - HEENT HEENT: Ears normal, Pharynx benign. No: Moist mucous membranes - Neck Neck: Supple, no meningeal sign, No adenopathy - Cardiac Cardiac: No murmur. No: RRR (irregular and tachycardic c/w atrial fib RVR. ) - Respiratory Respiratory: No: Clear bilaterally (diffuse wheezing and coarse sounds more to right. Fine crackles and decreased sounds in bases. ) - Abdomen Abdomen: Soft, Non tender - Female Female : Deferred - Rectal Rectal: Deferred - Back Back: No CVA TTP - Derm Derm: Normal color, Warm and dry - Extremities Extremities: Other (some edema in right leg with chronic skin changes. left wrist with swelling and tenderness dorsal radial aspect with some edema in hand. ) - Neuro Neuro: Alert and oriented X 3, No motor deficit, Normal speech Results - Vitals Vitals: Vital Signs - 24 hr 08/01/22 08/01/22 08/01/22 06:45 07:51 09:44 Temperature 36.7 C Heart Rate 88 131 H 130 H Respiratory 20 21 19 Rate Blood Pressure 180/122 H 161/104 H O2 Saturation 90 L 93 If not protocol 2 : Oxygen Flow, liters/minute 08/01/22 11:00 Temperature Heart Rate 120 H Respiratory 21 Rate Blood Pressure 158/98 H O2 Saturation 94 If not protocol 2 : Oxygen Flow, liters/minute Oxygen O2 Source Nasal cannula Oxygen Flow Rate 4 - EKG (time done) 06:40 Rate: Rate (enter#) (145) Rhythm: Atrial fibrillation [place]: Normal Ischemia: Normal ST segments, Non specific changes. No: ST elevation c/w ischemia, ST depression - Labs Labs: Microbiology 08/01/22 07:55 Gram Stain - Final Sputum Laboratory Tests 08/01/22 08/01/22 08/01/22 07:09 07:09 07:09 WBC 10.3 RBC 4.22 Hgb 13.2 Hct 40.0 MCV 94.8 MCH 31.3 H MCHC 33.0 RDW 14.6 Plt Count 253 MPV 10.2 Neut # (Auto) 8.4 H Lymph # (Auto) 0.9 L [place] # (Auto) 0.8 Eos # (Auto) 0.1 Baso # (Auto) 0.1 Absolute Nucleated RBC 0.00 Nucleated RBC % 0.0 Sodium 138 Potassium 3.7 Chloride 108 Carbon Dioxide 21 Anion Gap 9.0 BUN 19 Creatinine 0.7 Estimated GFR (MDRD) 80 L Glucose 125 H Lactic Acid Calcium 9.3 Total Bilirubin 0.9 AST 26 ALT 20 Alkaline Phosphatase 72 Troponin I High Sens 8.0 B-Natriuretic Peptide Total Protein 6.9 Albumin 3.4 Globulin 3.5 Albumin/Globulin Ratio 1.0 Lipase 44 Nasal Adenovirus (PCR) Nasal B. parapertussis DNA (PCR) Nasal Coronavir 229E PCR Nasal Coronavir HKU1 PCR Nasal Coronavir NL63 PCR Nasal Coronavir OC43 PCR Nasal Enterovir/Rhinovir PCR Nasal Influenza B PCR Nasal Influenza A PCR Nasal Parainfluen 1 PCR Nasal Parainfluen 2 PCR Nasal Parainfluen 3 PCR Nasal Parainfluen 4 PCR Nasal RSV (PCR) Nasal B.pertussis DNA PCR Nasal C.pneumoniae (PCR) Tom Human Metapneumo PCR Nasal M.pneumoniae (PCR) Nasal SARS-CoV-2 (PCR) 08/01/22 08/01/22 08/01/22 07:43 07:43 08:38 WBC RBC Hgb Hct MCV MCH MCHC RDW Plt Count MPV Neut # (Auto) Lymph # (Auto) [place] # (Auto) Eos # (Auto) Baso # (Auto) Absolute Nucleated RBC Nucleated RBC % Sodium Potassium Chloride Carbon Dioxide Anion Gap BUN Creatinine Estimated GFR (MDRD) Glucose Lactic Acid 1.2 Calcium Total Bilirubin AST ALT Alkaline Phosphatase Troponin I High Sens B-Natriuretic Peptide 924 H Total Protein Albumin Globulin Albumin/Globulin Ratio Lipase Nasal Adenovirus (PCR) NOT DETECTED Nasal B. parapertussis DNA (PCR) NOT DETECTED Nasal Coronavir 229E PCR NOT DETECTED Nasal Coronavir HKU1 PCR NOT DETECTED Nasal Coronavir NL63 PCR NOT DETECTED Nasal Coronavir OC43 PCR NOT DETECTED Nasal Enterovir/Rhinovir PCR NOT DETECTED Nasal Influenza B PCR NOT DETECTED Nasal Influenza A PCR NOT DETECTED Nasal Parainfluen 1 PCR NOT DETECTED Nasal Parainfluen 2 PCR NOT DETECTED Nasal Parainfluen 3 PCR NOT DETECTED Nasal Parainfluen 4 PCR NOT DETECTED Nasal RSV (PCR) NOT DETECTED Nasal B.pertussis DNA PCR NOT DETECTED Nasal C.pneumoniae (PCR) NOT DETECTED Tom Human Metapneumo PCR NOT DETECTED Nasal M.pneumoniae (PCR) NOT DETECTED Nasal SARS-CoV-2 (PCR) NOT DETECTED - Rads (name of study) chest xray Radiology: Prelim report reviewed (diffuse prominant vascular marking c/w CHF with small effusions. ), EMP read contemporaneously (seems CHF on CXR but clinically suspicious for pneumonia. ), See rad report left wrist xray Radiology: Prelim report reviewed (no fractures), See rad report PD MEDICAL DECISION MAKING - ED course Complexity details: reviewed results, re-evaluated patient (improved with nebulizers x 2 and on oxygen. Still some wheezing and coarse sounds as well as fine crackles. ), considered differential (seems like atrial fib (recent/known) with rapid response, some element of CHF, but also COPD/viral with pneumonia (cough/congestion/fevers).), d/w patient ED course: Clinically she seems to be a mixture of rapid atrial fibrillation with possibly leading to some heart failure at this point but also seems like upper respiratory infection with fevers congestion and productive cough over the last week that has increased. She is wheezy as well with question of some underlying COPD versus just a viral bronchial inflammation. However at this point given the worsening breathing and cough as well as very thick productive sputum, I would think she has some element of pneumonia as well clinically. I think that represents some of the infiltrates on chest x-ray and not just CHF alone. Her BNP at this point is 900 but was 500 when she had no edema nor symptoms of 4 weeks ago. - Critical Care Time(min): 45 Time Includes: Direct patient care, Reassess patient, Document care, Coordinate care Data interpretation: Labs, Pulse ox, CXR Procedures excluded from critical care time: EKG Departure - Departure Disposition: 66 [facility] DC/Xfer Clinical Impression: Atrial fibrillation with rapid ventricular response, Pneumonia, Hypoxia CHF (congestive heart failure) Qualifiers: Heart failure type: unspecified Heart failure chronicity: unspecified Qualified Code(s): I50.9 - Heart failure, unspecified Dyspnea Qualifiers: Dyspnea type: shortness of breath Qualified Code(s): R06.02 - Shortness of breath Discharge Date/Time: 08/01/22 12:30
[2022-08-01] MEDS ORDERED: IPRATROPIUM/ALBUTEROL 3 ML NEB INH STA (07:29)
[2022-08-01] MEDS ORDERED: METOPROLOL 5 MG/5 ML VIAL IVP STA ×3 (07:29→10:10)
[2022-08-01 07:30] LABS: ALBUMIN 3.4 g/dL (3.2-5.5); BILIRUBIN,TOTAL 0.9 mg/dL (0.2-1.0); CALCIUM 9.3 mg/dL (8.5-10.3); CREATININE 0.7 mg/dL (0.4-1.0); POTASSIUM 3.7 mmol/L (3.5-5.0); TOTAL PROTEIN 6.9 g/dL (6.7-8.2)
[2022-08-01] MEDS ORDERED: DEXAMETHASONE 10 MG/ML VIAL IVP STA (07:31)
[2022-08-01 07:36] LABS: BASOPHILS # (AUTO) 0.1 10^3/uL (0.0-0.1); BASOPHILS % (AUTO) 0.5 %; EOSINOPHILS # (AUTO) 0.1 10^3/uL (0.0-0.7); HGB - HEMOGLOBIN 13.2 g/dL (12.0-16.0); LYMPHOCYTES # (AUTO) 0.9 10^3/uL (1.5-3.5); LYMPHOCYTES % (AUTO) 8.4 %; MEAN CORPUSCULAR HEMOGLOBIN 31.3 pg (27.0-31.0); MEAN CORPUSCULAR VOLUME 94.8 fL (81.0-99.0); MEAN PLATELET VOLUME 10.2 fL (7.9-10.8); MONOCYTES # (AUTO) 0.8 10^3/uL (0.0-1.0); MONOCYTES % (AUTO) 7.3 %; NEUTROPHILS # (AUTO) 8.4 10^3/uL (1.5-6.6); NEUTROPHILS % (AUTO) 81.7 %; PLT - PLATELET COUNT 253 10^3/uL (130-450); RED BLOOD COUNT 4.22 10^6/uL (4.20-5.40); RED CELL DISTRIBUTION WIDTH 14.6 % (12.0-15.0); WHITE BLOOD COUNT 10.3 x10^3/uL (4.8-10.8)
--- NOTE | 2022-08-01 07:40 | XRAY Report ---
PROCEDURE: Chest 1 View X-Ray INDICATIONS: Chest pain TECHNIQUE: One view of the chest was acquired. COMPARISON: CXR 07/04/2022. FINDINGS: Surgical changes and devices: None. Lungs and pleura: Suspect small bilateral pleural effusions. Diffuse prominent pulmonary markings. T hese findings are new. No pneumothorax. Mediastinum: Mediastinal contours appear grossly similar. Heart size is obscured. Bones and chest wall: No suspicious bony lesions. Overlying soft tissues appear unremarkable. IMPRESSION: Fluid overload/CHF. Small bilateral pleural effusions. Reviewed by: Anthony Han MD on 08/01/2022 6:39 AM KRISTI Approved by: Anthony Han MD on 08/01/2022 6:39 AM KRISTI Station ID: [id number]
--- NOTE | 2022-08-01 07:48 | XRAY Report ---
PROCEDURE: Wrist 3 View LT INDICATIONS: wrist pain, unsure of injury TECHNIQUE: 3 views of the wrist were acquired. COMPARISON: None. FINDINGS: Bones: No fractures or dislocations. No suspicious bony lesions. Bones appear osteopenic. There is moderate to severe degenerative change at the first CMC joint. Soft tissues: No suspicious soft tissue calcifications. IMPRESSION: No acute osseous abnormality. Bones appear osteopenic. Consider follow-up radiographs in 10-14 days. Reviewed by: Anthony Han MD on 08/01/2022 6:47 AM KRISTI Approved by: Anthony Han MD on 08/01/2022 6:47 AM KRISTI Station ID: [id number]
[2022-08-01] MEDS ORDERED: CEFEPIME 1 GM in SODIUM CHLORIDE 0.9% MINIBAG 100 ML IV STA (08:00)
[2022-08-01] MEDS ORDERED: AZITHROMYCIN INJ 500 MG in SODIUM CHLORIDE 0.9% 250 ML IV STA (08:00)
[2022-08-01] MEDS ORDERED: FUROSEMIDE 40 MG/4 ML VIAL IVP STA (08:52)
[2022-08-01] MEDS ORDERED: NITROGLYCERIN SL 0.4 MG TABLET SL STA (08:52)
[2022-08-01 10:29] LABS: B. PARAPERTUSSIS- RESP PCR PAN NOT DETECTED; B. PERTUSSIS- RESP PCR PANEL NOT DETECTED; C. PNEUMONIAE- RESP PCR PANEL NOT DETECTED; CORONAVIRUS 229E-RESP PCR NOT DETECTED; CORONAVIRUS HKU1-RESP PCR NOT DETECTED; CORONAVIRUS NL63-RESP PCR NOT DETECTED; CORONAVIRUS OC43-RESP PCR NOT DETECTED; HUMAN METAPNEUMOVIRUS NOT DETECTED; INFLUENZA A- RESP PCR PANEL NOT DETECTED; INFLUENZA B - RESP PCR PANEL NOT DETECTED; M. PNEUMONIAE- RESP PCR PANEL NOT DETECTED; PARAINFLUENZA VIRUS 1 NOT DETECTED; PARAINFLUENZA VIRUS 2 NOT DETECTED; PARAINFLUENZA VIRUS 3 NOT DETECTED; PARAINFLUENZA VIRUS 4 NOT DETECTED; RHINOVIRUS/ENTEROVIRUS NOT DETECTED; RSV- RESP PCR PANEL NOT DETECTED; SARS-CoV-2 -RESP PCR PANEL NOT DETECTED
[2022-08-01] MEDS ORDERED: HYDROcod/ACETAM 5/325 MG TABLET PO PRN (11:42)
[2022-08-01] MEDS ORDERED: ONDANSETRON ODT 4 MG TABLET TL PRN (11:42)
[2022-08-01] MEDS ORDERED: ONDANSETRON 4 MG/2 ML VIAL IVP PRN (11:42)
[2022-08-01] MEDS ORDERED: SODIUM CHLORIDE FLUSH 0.9% 10 ML SYRINGE IVP PRN (11:42)
[2022-08-01] MEDS ORDERED: ACETAMINOPHEN 325 MG TABLET PO PRN (11:42)
[2022-08-01] MEDS ORDERED: cefTRIAXone 1 GM in SODIUM CHLORIDE 0.9% MINIBAG 100 ML IV STA (11:46)
[2022-08-01] MEDS ORDERED: diltiaZEM INJ 5 MG/ML VIAL IVP STA (11:49)
[2022-08-01] MEDS ORDERED: METOPROLOL TARTRATE 50 MG TABLET PO SCH (12:00)
[2022-08-01] MEDS ORDERED: methylPREDNISolone 4 MG TABLET PO ONE (13:00)
[2022-08-01] MEDS: LEVALBUTEROL 1.25 MG/3 ML NEB INH SCH ×2 (14:34→19:15)
[2022-08-01] MEDS ORDERED: ZOLPIDEM 5 MG TABLET PO PRN (15:00)
[2022-08-01] MEDS ORDERED: cephALEXin 250 MG CAPSULE PO SCH (15:00)
[2022-08-01] MEDS: cloNIDine 0.1 MG TABLET PO SCH (15:26)
--- NOTE | 2022-08-01 15:36 | HISTORY & PHYSICAL EXAMINATION ---
Chief Complaint - Chief Complaint Chief Complaint: shortness of breath History of Present Illness - Admitted From Admitted From:: home - History Obtained From Records Reviewed: [facility] History obtained from: patient, Dr. Carr Exam Limitations: memory loss, she denies having dementia - History of Present Illness HPI Comment/Other: This is an elderly female who has a history of atrial fibrillation and hypertension but no congestive heart failure. She was recently seen in the emergency room July 04 complaining of palpitations. She had rapid A. fib which responded to metoprolol and she was sent home. She did well with that until 7 days ago developed cough, fever, chest congestions. Last night she was at [employer] and had a Allie and burger and was ok in spite of the "cold". Shortness of breath developed a couple of days ago and finally was so overwhelming in the muffler tender hours of today that she called an ambulance. In the ambulance she was in the 80s on room air. She was coughing and had significant sputum production. The ambulance crew noted that she had quite a bit of wheezing so they gave her nebulizer in route. Leg ulcer returned 6 months ago after episde of leg edema. No return to wound clinic. Edema comes and goes. ABIs are good daughter says. Family is looking at assisted living bc of the ankle and recent depression and crying. The ankle is slowing her down. Forgetfullness has started since this recent ankle infection. In our emergency room temperature was 36.7. Heart rate 88. Blood pressure 180/122. She was requiring 4 L to saturate at 90%. Respirations were 20. H eart rate quickly went to 131. She had wheezing, tachypnea, coarse breath sounds. She was given nebulizers, oxygen, and had some improvement. But heart rate was still fast, and chest x-ray showed fluid overload/CHF with small bilateral pleural effusions. Dr. Carr, emergency room provider, did acknowledge that there was some element of congestive heart failure with the A. fib and RVR but the cough, purulent phlegm production was also indicative of either severe bronchitis or early pneumonia. He ordered blood cultures on her, and gave her azithromycin, cefepime, Decadron. She also received Lasix 40 mg IV push. And to slow down her heart rate received 3 doses of metoprolol IV. The patient has improved but he would like her placed in observation to make sure that she continues to improve through the night. History - Past Medical History Cardiovascular: reports: Hypertension, High cholesterol, Peripheral Vascular Disease (Ischemic foot 08/2020. Transfer to [facility]. Bypass done. Since then chronic ankle ulcer. Followed by [facility]. Last note 06/23. Wound healed. Discharged), Atrial fibrillation Respiratory: reports: Shortness of breath Neuro: reports: None Endocrine/Autoimmune: reports: None GI: reports: Colon polyps (Bloody stool 02/16. EGD erosive gastritis and minor oozing. 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 Had osteoporosis. Dad with complications of diabetes. No siblings. 3 kids healthy. 1 daughter is nearby on [place], 1 daughter on [facility]. Living arrangement: At home Living Situation: Alone Social History Notes: 1 to 2 glasses of wine a week with dinner. No history of smoking. of Alzheimer's/Parkinson's 5 years ago. She moved to apartment near [facility]. Very independent but daughter goes by daily to make sure she's ok. - Substance History Use: Uses substance without health or social issues: Alcohol (1-2 glasses of wine a week with dinner) - POLST Patient has POLST: No POLST Status: Full Code Meds/Allgy - Home Medications Home Medications: Ambulatory Orders Medication Instructions Recorded Confirmed cloNIDine [Catapres] 0.1 mg PO DAILY 09/14/13 08/01/22 Olmesartan Medoxomil 20 mg PO DAILY 03/09/17 08/01/22 Zolpidem Tartrate 10 mg PO QPM PRN 03/19/17 08/01/22 Multivitamin [Daily Multiple 1 tab PO DAILY 12/01/20 08/01/22 Vitamin] Apixaban [Eliquis] 5 mg ORAL BID 05/08/21 08/01/22 Rosuvastatin Calcium [Crestor] 5 mg PO DAILY 05/08/21 08/01/22 amLODIPine [Norvasc] 2.5 mg ORAL DAILY 07/26/21 08/01/22 Cholecalciferol [Vitamin D3] 25 mcg PO DAILY 08/01/22 08/01/22 Fluticasone Propion/Salmeterol 2 inh INH BID 08/01/22 08/01/22 [Fluticasone-Salmeterol 250-50] Metoprolol Succinate [Toprol Xl] 25 mg PO DAILY 08/01/22 08/01/22 Metoprolol Succinate [Toprol Xl] 50 mg PO QPM 08/01/22 08/01/22 Mupirocin 2% Oint [Bactroban 2% 1 applic TOP DAILY 08/01/22 08/01/22 Oint] - Allergies Allergies/Adverse Reactions: Allergies Allergy/AdvReac Type Severity Reaction Status Date / Time strawberry Allergy Unknown Verified 08/01/22 06:50 venom-honey bee Allergy swelling Verified 08/01/22 06:50 [bee venom (honey bee)] Review of Systems - Constitutional Constitutional: reports: Fatigue, Malaise, Poor appetite - Eyes Eyes: denies: Pain, Irritation, Amaurosis - Ears, Nose & Throat Ears, Nose & Throat: reports: Hearing loss, Nasal obstruction, Nasal congestion, Postnasal drainage, Sore throat, Hoarseness - Cardiovascular Cariovascular: reports: Irregular heart rate, Palpitations, Exertional dyspnea, Decr. exercise tolerance - Respiratory Respiratory: reports: Cough, Sputum production, Wheezing, SOB at rest, SOB with exertion - Gastrointestinal Gastrointestinal: denies: Abdominal pain, Abdominal distention, Constipation, Diarrhea - Genitourinary Genitourinary: denies: Dysuria, Frequency, Urgency - Musculoskeletal Musculoskeletal: denies: Muscle pain, Back pain, Muscle aches, Joint pain - Integumentary Integumentary: denies: Rash, Pruritis, Lesions - Neurological Neurological: reports: General weakness, Memory problems (She denies dementia but cannot name any of her medications and vacillates between what her history is. For instance cannot quite remember if she takes pills for blood pressure or "heart"). denies: Focal weakness, Headache, Dizziness, Pre-existing deficit, Abnormal gait - Psychiatric Psychiatric: reports: Anxiety - Endocrine Endocrine: denies: Polyuria, Polydypsia, Polyphagia - Hematologic/Lymphatic Hematologic/Lymphatic: denies: Anemia, Bruising, Petechiae Prior Level of Functionality: She describes her self is completely independent. Is able to dress herself, feed herself. No leaving stove on. Doesn't want to shower unless someone in the house. No driving. Daughter does errands. Occ she brings meals over. Exam - Vital Signs Reviewed Vital Signs: Yes Vital Signs: Vital Signs x48h Temp Pulse Pulse Resp BP BP BP 08/01/22 15:00 90 24 143/107 H 08/01/22 14:36 116 H 21 08/01/22 14:27 103 H 22 158/113 H 08/01/22 14:00 109 H 25 H 152/109 H 08/01/22 13:42 115 H 22 160/88 H 08/01/22 13:41 160/88 H 08/01/22 13:23 174/128 H 08/01/22 13:17 08/01/22 13:15 134 H 24 174/128 H 08/01/22 12:53 37.1 C 121 H 22 186/101 H 08/01/22 12:35 08/01/22 11:00 120 H 21 158/98 H 08/01/22 09:44 130 H 19 161/104 H 08/01/22 07:51 131 H 21 Pulse Ox O2 Flow Rate 08/01/22 15:00 92 08/01/22 14:36 08/01/22 14:27 92 08/01/22 14:00 95 08/01/22 13:42 91 L 08/01/22 13:41 08/01/22 13:23 08/01/22 13:17 2 08/01/22 13:15 92 1 08/01/22 12:53 94 2 08/01/22 12:35 2 08/01/22 11:00 94 2 08/01/22 09:44 93 2 08/01/22 07:51 - Physical Exam General Appearance: positive: No acute distress, Alert, Other (Fretful, forgetful elderly lady. But following commands and has lucid speech. Comfortable from a respiratory perspective and has an occasional cough during the exam) Eyes Bilateral: positive: PERRL, EOMI Neck: positive: No JVD Respiratory: positive: No respiratory distress, Wheezes, Rhonchi Cardiovascular: positive: Irregularly irregular, Systolic murmur, Other (Heart rate was in the 130s in the emergency room. Occasionally she dips down below 100 and now is about 104, 107. Blood pressure high with diastolic ranging from 95 and up to 122. Respirations can be 19 or 27) Abdomen: positive: Non-tender, No organomegaly, Nml bowel sounds, No distention Skin: positive: Warm, Dry, Other (Right ankle ulcer that is oozing a yellow purulent material. She says this is chronic. She has had it for a few months now.) Extremities: positive: Full ROM, No pedal edema Neurologic/Psychiatric: positive: CN's nml (2-12), Motor nml, Disoriented to place Conclusion/Plan - Problem List (1) Acute respiratory failure with hypoxia Conclusion/Plan: This appears to be relatively acute event in the context of a recent URI. Daughter states that mom has been sick with URI off and on since last part of June and not just the last week. The patient herself feels that its been more of an acute event this week. In any event the URI is accompanied by severe cough, phlegm, malaise. The phlegm is green to yellow and thick. The patient does not have a history of COPD or smoking. But she has significant wheezing. On top of that she has atrial fibrillation with RVR Plan: Observation status. She is already improved quite a bit from the ER to now but still has hypoxemia, wheezing. Heart rate is still slightly over 100 at times. I will give antibiotics, steroids, heart lowering drugs to see how she does by tomorrow. (2) Acute congestive heart failure Conclusion/Plan: An echo in January 2017 had grade 1 diastolic dysfunction but a normal ejection fraction. A repeat echo in March 2017 had the same findings. At this time I am presuming it is acute diastolic heart failure because of the A. fib with RVR. Plan: Diuresis, Slowing down her heart rate Repeat echo to assess LV function Qualifiers: Heart failure type: diastolic Qualified Code(s): I50.31 - Acute diastolic (congestive) heart failure (3) Atrial fibrillation with rapid ventricular response Conclusion/Plan: She has a known history of A. fib with RVR. This is not a new diagnosis. Medications are Eliquis and metoprolol. She is on metoprolol 20 5 in the mornin g and 50 at night. I will increase her to 50 twice daily. I have given her 1 dose of diltiazem as she was transition to the ICU. I then increased her oral metoprolol. That seems to have had a good response with lowering her heart rate to the low 100s. Aim for a heart rate less than 100 by tomorrow. (4) Acute bronchitis and bronchiolitis Conclusion/Plan: Chest x-ray does not show infiltrate. But subjective complaint and exam shows wheezing, phlegm, coughing. No fever. White cell count is normal. Blood cultures were done in the ER. I will continue with Medrol Dosepak as opposed to IV Solu-Medrol. Continue ceftriaxone and azithromycin.She denies having a history of COPD yet she is on Advair. She cannot tell me what the diagnosis is for her to be on that. If she does well with this, I would then transition her to Augmentin in the outpatient setting. I will call her PCP office tomorrow to find out what the diagnosis is for the Advair (5) Ischemic ulcer of ankle Conclusion/Plan: This is been a long-term issue for the patient. She does not have a fever or an elevated white cell count with this. The drainage is purulent. Initially, it was treated as a Charcot joint. She had good wound healing and was discharged from our medical ambulatory clinic. She then developed an ischemic foot, and it has been a subsequent leg ulcer extending down to the ankle that developed after bypass surgery for the leg. Patient is on antibiotics for the pneumonia or bronchitis. Though should cover skin pathogens. Daughter states that she will be calling the vascular surgeon tomorrow to ask them if they want us to do anything. The vascular surgeon is at [place] [facility]. Qualifiers: Laterality: right Non-pressure ulcer stage: limited to breakdown of skin Qualified Code(s): L97.311 - Non-pressure chronic ulcer of right ankle limited to breakdown of skin (6) Cognitive decline Conclusion/Plan: Accompanied by an episode of depression, crying, anxiety last week. Daughter cannot figure out if mom is just tired of being cooped up and being sick, but they think that they are going to be taking her to her sister in [place] just to get her out of her apartment here in [place]. The daughter that lives here in [place] is working full-time, has 2 kids at home. Although she goes almost every day to see her mom she thinks mom needs just a little bit more attention and love. As such her sister who lives in [place] will come by so that he can tag team taking care of mom. (7) Hypertension Conclusion/Plan: Blood pressure not at goal in the ER or in the initial hours of stay. We will resume her medications from the outpatient setting. She is on clonidine 0.1 daily and Norvasc 2.5. She is also on olmesartan which will most likely be substituted by losartan here. Qualifiers: Hypertension type: unspecified secondary hypertension Qualified Code(s): I15.9 - Secondary hypertension, unspecified; I15 - Secondary hypertension - Lab Results Lab results reviewed: Yes Fish Bones: 08/01/22 07:09 08/01/22 07:09 - Diagnostic Imaging Results Diagnostic Imaging Results: positive: Final report reviewed - EKG Results EKG Interpreted Independently: No Core Measures - Anticipated LOS I expect patient to be DC'd or transferred within 96 hours.: Yes - DVT/VTE - Prophylaxis VTE/DVT Prophylaxis med ordered at admit?: Yes
[2022-08-01] MEDS: SODIUM CHLORIDE FLUSH 0.9% 10 ML SYRINGE IVP SCH ×2 (17:57→21:19)
[2022-08-01] MEDS: amLODIPine 5 MG TABLET PO SCH (17:57)
[2022-08-01] MEDS ORDERED: METOPROLOL SUCCINATE 50 MG TABLET PO SCH (21:00)
[2022-08-01] MEDS ORDERED: ATORVASTATIN 10 MG TABLET PO SCH (21:00)
[2022-08-01] MEDS: APIXABAN 5 MG TABLET PO SCH (21:10)
[2022-08-02] MEDS: LEVALBUTEROL 1.25 MG/3 ML NEB INH SCH (05:56)
[2022-08-02] MEDS ORDERED: diltiaZEM INJ 5 MG/ML VIAL IVP ONE (07:55)
[2022-08-02] MEDS ORDERED: methylPREDNISolone 4 MG TABLET PO ONE (08:00)
[2022-08-02] MEDS ORDERED: MULTIVITAMIN TABLET PO SCH (08:00)
[2022-08-02] MEDS: APIXABAN 5 MG TABLET PO SCH (08:15)
[2022-08-02] MEDS: amLODIPine 5 MG TABLET PO SCH (08:17)
[2022-08-02] MEDS: cloNIDine 0.1 MG TABLET PO SCH (08:18)
[2022-08-02] MEDS ORDERED: METOPROLOL SUCCINATE 50 MG TABLET PO SCH (09:00)
[2022-08-02] MEDS ORDERED: LOSARTAN 50 MG TABLET PO SCH (09:00)
[2022-08-02] MEDS ORDERED: ENOXAPARIN 40 MG/0.4 ML SYRINGE SUBQ SCH (09:00)
[2022-08-02] MEDS ORDERED: amLODIPine 5 MG TABLET PO SCH (09:00)
[2022-08-02] MEDS ORDERED: cefTRIAXone 1 GM in SODIUM CHLORIDE 0.9% MINIBAG 100 ML IV SCH (09:00)
[2022-08-02] MEDS ORDERED: AZITHROMYCIN INJ 500 MG in SODIUM CHLORIDE 0.9% 250 ML IV SCH (09:00)
[2022-08-02] MEDS ORDERED: cloNIDine 0.1 MG TABLET PO SCH (09:00)
[2022-08-02] MEDS: SODIUM CHLORIDE FLUSH 0.9% 10 ML SYRINGE IVP SCH (09:15)
[2022-08-02 09:16] LABS: CALCIUM, IONIZED 1.15 mmol/L (1.15-1.33); VBG PH 7.454 (7.31-7.41)
[2022-08-02 09:24] LABS: CALCIUM 9.2 mg/dL (8.5-10.3); CREATININE 0.9 mg/dL (0.4-1.0); POTASSIUM 3.7 mmol/L (3.5-5.0)
[2022-08-02] MEDS ORDERED: POTASSIUM CHLORIDE 20 MEQ TABLET PO ONE (09:55)
--- NOTE | 2022-08-02 12:12 | Discharge Plan ---
Discharge Plan Problem Reviewed?: Yes Disposition: Home, Self Care Condition: Fair Prescriptions: Amoxicillin 875 mg PO BID #8 tablet Escitalopram [Lexapro] 10 mg PO DAILY #30 tablet Azithromycin [Zithromax] 500 mg PO ONCE #2 tablet Diet: Regular Activity Restrictions: Activity as Tolerated Shower Restrictions: No Driving Restrictions: Yes Health Concerns: You have been seen in our emergency room July 04 complaining of palpitations. We found you to have a fast heart rate from your atrial fibrillation. You responded to us given you medicine to slow down your heart rate and your oxygen levels were normal, your heart exam was normal and you were sent home. About a week ago you developed cough, congestion, and were not feeling well. You also felt like you had a fever. But you felt well enough to go eat a burger and have a silvestre a [employer] the night before admission. You went home, and overnight the shortness of breath returned and was quite severe, and in the microbiology supervisor hours you just could not breathe. The ambulance was called and found you to have a very low oxygen, wheezing, and a fast heart rate. Your atrial fibrillation heart rate was out of control. You are wheezing from severe bronchitis. Your chest x-ray did not have pneumonia. After receiving nebulizers, steroids for bronchitis inflammation, and medicines to slow down your heart rate you have done very well. You were confused, a little bit delusional with your thought process when you came in. The next day you have snapped back to normal. You are no longer wheezing, but you still have a cough. Phlegm is better. Your oxygen level is 95% on room air. Your heart rate is now consistently below 100. You have also shared with us that you have recurrence of the leg ulcer. You have had a Charcot joint and chronic leg edema. Sometimes it led to having an ankle ulcer. In 2019 you were identified as having very bad blood supply to that leg and you underwent bypass surgery to that leg. You received regular wound care until June 2021 when you were discharged from the wound care clinic because your ankle ulcer had healed. Subsequently your skin was stretched over that area because of edema again. And the ulcer has returned. It is draining yellowish drainage sometimes. A final concern that you have shared with this is just being very tired of being tired. You reached a crisis last week and you were depressed. Weepy. Not wanting to do this anymore. I think that you may have been coming down with this bronchitis at that time. Starting to feel badly. And your oxygen levels may have been low. This would leave you depressed, crying, and having thought processes that could have been interpreted as delusional. I will send you home with an antidepressant. This may help. Plan of Treatment: 1. Complete antibiotic therapy for your bronchitis with azithromycin 500 mg tomorrow on August 03. Start amoxicillin 875 mg twice a day with food also on August 03. You will only take it for 4 days. 2. Because antibiotics sometimes disrupts bowel [id number], please take a probiotic that is [id number] twice a day. 3. Please see your primary care provider, Dr. Spring in the next week. 4. You will be sent home with a Medrol Dosepak to help with the wheezing and cough that was in your lungs. Continue taking the Diskus inhaler that is a long- acting bronchodilator. You can take Mucinex [id number] to help with your phlegm production. 5. I am making sure that you are vascular surgeon Dr. Woodrow Dennis is made aware that your ankle ulcer is back and I have faxed him your discharge summary to [phone] Care Goals: To have resolution of your recent episode of bronchitis. And to have your heart rate under control so you do not have to come back to the hospital. You would also like to have your ankle ulcer heal. Assessment: Patient is alert, oriented, and a lucid historian this morning. Daughter Zofia was updated at [phone]. Daughter Aria was also updated. No Smoking: If you smoke, Please STOP! Call for help.
--- NOTE | 2022-08-02 12:27 | DISCHARGE SUMMARY ---
Discharge Summary Admit Date: 08/01/22 Discharge Date: 08/02/22 Discharging Provider: Zulma Almeida MD Primary Care Provider: Andre Spring MD Code Status: Attempt Resuscitation Condition at Discharge: Fair Discharge Disposition: 01 Home, Self Care - DIAGNOSES Discharge Diagnoses with Status of Each Condition: 1. Acute on chronic respiratory failure with hypoxia 2. Acute on chronic diastolic congestive heart failure 3. Atrial fibrillation with rapid ventricular response 4. Acute bronchitis and bronchiolitis 5. Ischemic ulcer of ankle 6. Cognitive decline 7. Hypertension - HPI History of Present Illness: This is an elderly female who has a history of atrial fibrillation and hypertension but no congestive heart failure. She was recently seen in the emergency room July 04 complaining of palpitations. She had rapid A. fib which responded to metoprolol and she was sent home. She did well with that until 7 days ago developed cough, fever, chest congestions. Last night she was at [employer] and had a Allie and burger and was ok in spite of the "cold". Shortness of breath developed a couple of days ago and finally was so overwhelming in the network admin hours of today that she called an ambulance. In the ambulance she was in the 80s on room air. She was coughing and had significant sputum production. The ambulance crew noted that she had quite a bit of wheezing so they gave her nebulizer in route. Leg ulcer returned 6 months ago after episde of leg edema. No return to wound clinic. Edema comes and goes. ABIs are good daughter says. Family is looking at assisted living bc of the ankle and recent depression and crying. The ankle is slowing her down. Forgetfullness has started since this recent ankle infection. In our emergency room temperature was 36.7. Heart rate 88. Blood pressure 180/122. She was requiring 4 L to saturate at 90%. Respirations were 20. Hear t rate quickly went to 131. She had wheezing, tachypnea, coarse breath sounds. She was given nebulizers, oxygen, and had some improvement. But heart rate was still fast, and chest x-ray showed fluid overload/CHF with small bilateral pleural effusions. Dr. Carr, emergency room provider, did acknowledge that there was some element of congestive heart failure with the A. fib and RVR but the cough, purulent phlegm production was also indicative of either severe bronchitis or early pneumonia. He ordered blood cultures on her, and gave her azithromycin, cefepime, Decadron. She also received Lasix 40 mg IV push. And to slow down her heart rate received 3 doses of metoprolol IV. The patient has improved but he would like her placed in observation to make sure that she continues to improve through the night. - Past Medical History Cardiovascular: reports: Hypertension, High cholesterol, Peripheral Vascular Disease (Ischemic foot 08/2020. Transfer to [facility]. Bypass done. Since then chronic ankle ulcer. Followed by MAC. Last note 06/23. Wound healed. Discharged), Atrial fibrillation Respiratory: reports: Shortness of breath Neuro: reports: None Endocrine/Autoimmune: reports: None GI: reports: Colon polyps (Bloody stool 02/16. EGD erosive gastritis and minor oozing. 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 LAR 03/19), Other [employer]: reports: Other () : reports: None HEENT: reports: None Psych: reports: Depression (crying last week bc so cooped up), Anxiety Musculoskeletal: reports: Other (Charcot joint with chronic foot ulcers) Derm: reports: Other MRSA Hx?: Yes - Past Surgical History General: reports: Appendectomy Cardiovascular: reports: Vascular surgery HEENT: reports: Tonsil/Adenoidectomy - CONSULTS | PROCEDURES Procedures: Chest x-ray has fluid overload from congestive heart failure. Small bilateral pleural effusions. No pneumonia. Wrist x-ray has no acute osseous abnormality. She appears osteopenic. Follow- up film in 10 to 14 days recommended Blood cultures on August 01 negative. Sputum Gram stain has many squamous epithelial cells. As such is felt to be contaminated and will not be sent for Sandie/culture - HOSPITAL COURSE Hospital Course: The patient was given nebulizers, IV steroids, antibiotics, and beta-blockers to slow down her heart rate. Sometimes she was given IV diltiazem on top of her beta-blockers. Her home beta-clem medication was increased from 50 in the morning and 20 5 at night to 50 twice daily. Overnight she did well and that the next day wheezing had stopped, heart rate was below 100 and she no longer needed oxygen. We think that she developed a bronchitis, that in turn caused shortness of breath anxiety and a fast heart rate which then caused diastolic heart failure. Daughters describe a cognitive decline over the last few months. This last week she was weepy, depressed, delusional. They wonder if she would benefit from an antidepressant. In addition to this she has had recurrence of an ischemic ankle ulcer. She is always had a Charcot joint with a chronic wound that needed intermittent care f or the last few years. In 2019 she presented as an ischemic but/ankle. She underwent bypass surgery with Dr. Woodrow Dennis at [facility]. Subsequent ischemic ankle ulcer was taken care of by our MAC and she had complete wound healing by June 2021. Subsequent to that she has had some edema and the skin has broken open again and has recurrence of her ulcer. The family is worried about her vascular status and would like her to be referred to Dr. Dennis. I did order an echocardiogram but those are not available on Mondays. She has had 2 previous echoes at our institution when she was first diagnosed with atrial fibrillation and at that time ejection fraction was intact . At discharge, she is an alert oriented lady. Last night she was confused and slightly belligerent. This morning she is laughing, comfortable, eating breakfast and no longer short of breath. Temperature is 37.1. Heart rate is 95. Blood pressure 132/98. Respirations 22. 95% on room air. Her daughter had hoped for her to get oxygen at home but she does not meet criteria. She is 5 foot 6 inches tall and weighs 64 kg. Lungs are clear. No wheezing. Irregular rate and rhythm with a rate below 100. Abdomen that is soft and nontender. Normal bowel sounds. A right ankle ulcer that is with yellowish eschar, surrounded by 3 cm of a circular granulation and pinkness. The rest of her foot is not cold, but pulse not palpable. She has trace ankle edema around both ankles. Her skin is starting to shrink from where edema is improving. She is alert, oriented to person place and time. At discharge I am sending her home with a Medrol Dosepak, amoxicillin 875 twice daily for 4 more days. Azithromycin 500 mg for 1 dose only tomorrow. Mucinex twice daily. Lexapro 10 mg p.o. daily is a new med. I would like her to follow-up with Dr. Woodrow Dennis as well as her primary care provider, Dr. Spring. Dr. Spring may want to order an echo in the outpatient setting to follow-up - ALLERGIES Allergies/Adverse Reactions: Allergies Allergy/AdvReac Type Severity Reaction Status Date / Time strawberry Allergy Unknown Verified 08/01/22 06:50 venom-honey bee Allergy swelling Verified 08/01/22 06:50 [bee venom (honey bee)] - MEDICATIONS Home Medications: Ambulatory Orders Medication Instructions Recorded Confirmed cloNIDine [Catapres] 0.1 mg PO DAILY 09/14/13 08/01/22 Olmesartan Medoxomil 20 mg PO DAILY 03/09/17 08/01/22 Zolpidem Tartrate 10 mg PO QPM PRN 03/19/17 08/01/22 Multivitamin [Daily Multiple 1 tab PO DAILY 12/01/20 08/01/22 Vitamin] Apixaban [Eliquis] 5 mg ORAL BID 05/08/21 08/01/22 Rosuvastatin Calcium [Crestor] 5 mg PO DAILY 05/08/21 08/01/22 amLODIPine [Norvasc] 2.5 mg ORAL DAILY 07/26/21 08/01/22 Cholecalciferol [Vitamin D3] 25 mcg PO DAILY 08/01/22 08/01/22 Fluticasone Propion/Salmeterol 2 inh INH BID 08/01/22 08/01/22 [Fluticasone-Salmeterol 250-50] Metoprolol Succinate [Toprol Xl] 50 mg PO QPM 08/01/22 08/01/22 Mupirocin 2% Oint [Bactroban 2% 1 applic TOP DAILY 08/01/22 08/01/22 Oint] Amoxicillin 875 mg PO BID #8 tablet 08/02/22 Azithromycin [Zithromax] 500 mg PO ONCE #2 tablet 08/02/22 Escitalopram [Lexapro] 10 mg PO DAILY #30 tablet 08/02/22 Metoprolol Succinate [Toprol Xl] 25 mg PO DAILY #0 08/02/22 08/01/22 methylPREDNISolone [Medrol Dose 1 each PO .PACKAGEINSTRUCTIONS 6 08/02/22 Pack] Days #1 each - LABS Result Diagrams: 08/01/22 07:09 08/02/22 09:07
[2022-08-02 17:13] VITALS: BP 156/105
[2022-08-03] MEDS ORDERED: methylPREDNISolone 4 MG TABLET PO ONE (08:00)
[2022-08-04] MEDS ORDERED: methylPREDNISolone 4 MG TABLET PO ONE (08:00)
[2022-08-05] MEDS ORDERED: methylPREDNISolone 4 MG TABLET PO ONE (08:00)
[2022-08-06] MEDS ORDERED: methylPREDNISolone 4 MG TABLET PO ONE (08:00)
== END 2022-08-02 17:45 | disposition home or self-care (01) ==
LOC: EDUNIT# → ED 06:39 → ICU 11:42
PROVIDERS: ADMIT Specialist; ATTEND Specialist
DX: J96.21 Acute and chronic respiratory failure with hypoxia (principal); I11.0 Hypertensive heart disease with heart failure; I50.33 Acute on chronic diastolic (congestive) heart failure; I48.91 Unspecified atrial fibrillation; J20.9 Acute bronchitis, unspecified; L97.309 Non-pressure chronic ulcer of unspecified ankle with unspecified severity; E78.00 Pure hypercholesterolemia, unspecified; I73.9 Peripheral vascular disease, unspecified; F32.A Depression, unspecified; F41.9 Anxiety disorder, unspecified; A52.16 Charcot's arthropathy (tabetic); J21.9 Acute bronchiolitis, unspecified; Z20.822 Contact with and (suspected) exposure to COVID-19; Z79.01 Long term (current) use of anticoagulants; Z79.899 Other long term (current) drug therapy; Z82.3 Family history of stroke; Z83.3 Family history of diabetes mellitus
CPT/HCPCS: 36415; 71045; 73110; 80048; 80053; 82330; 83605; 83690; 83735; 83880; 84100; 84484; 85025; 87040; 87150; 87205; 87633; 93005; 94640; 96365; 96366; 96367; 96368; 96375; 96376; 99285; 99291; A9270; G0378; J7509; 87070

== ENCOUNTER 2022-08-31 09:39 | Outpatient (CLI) | payer MEDICARE ==
--- NOTE | 2022-08-31 16:13 | XRAY Report ---
PROCEDURE: Foot 3 View RT INDICATIONS: Foot pain TECHNIQUE: Three views of the foot were acquired. COMPARISON: None. FINDINGS: Destructive changes of the right 3rd distal phalanx, highly suspicious for osteomyelitis. D iffuse osteopenia and demineralization. IMPRESSION: Destructive lytic changes of the right 3rd distal phalanx with adjacent soft tissue swelling. Finding s suggestive of osteomyelitis. Reviewed by: Puneet Garcia MD on 08/31/2022 4:12 PM PST Approved by: Puneet Garcia MD on 08/31/2022 4:12 PM PST Station ID: [id number]
== END 2022-08-31 09:40 | disposition home or self-care (01) ==
LOC: DI 09:39
PROVIDERS: ATTEND Nurse Practitioner
DX: I73.9 Peripheral vascular disease, unspecified (principal); R93.6 Abnormal findings on diagnostic imaging of limbs

== ENCOUNTER 2022-09-14 08:08 | Outpatient (CLI) | payer MEDICARE ==
[2022-09-14 08:20] LABS: HCT - HEMATOCRIT 42.1 % (37.0-47.0); HGB - HEMOGLOBIN 13.6 g/dL (12.0-16.0); MEAN CORPUSCULAR HEMOGLOBIN 30.3 pg (27.0-31.0); MEAN CORPUSCULAR HGB CONC 32.3 g/dL (32.0-36.0); MEAN CORPUSCULAR VOLUME 93.8 fL (81.0-99.0); MEAN PLATELET VOLUME 10.4 fL (7.9-10.8); RED BLOOD COUNT 4.49 10^6/uL (4.20-5.40); RED CELL DISTRIBUTION WIDTH 13.4 % (12.0-15.0); WHITE BLOOD COUNT 7.1 x10^3/uL (4.8-10.8)
[2022-09-14 08:31] LABS: CALCIUM 9.1 mg/dL (8.5-10.3); CREATININE 0.8 mg/dL (0.4-1.0); POTASSIUM 3.7 mmol/L (3.5-5.0)
== END 2022-09-14 08:09 | disposition home or self-care (01) ==
LOC: LAB 08:08
PROVIDERS: ATTEND Radiology Vascular & Interventional Radiology
DX: I73.9 Peripheral vascular disease, unspecified (principal)
CPT/HCPCS: 36415; 80048; 85027

== ENCOUNTER 2022-10-03 07:43 | Outpatient (CLI) | payer MEDICARE | END 2022-10-03 07:44 | disposition critical access hospital (66) | LOC: EMS 07:43 | DX: M54.50 Low back pain, unspecified (principal); R06.00 Dyspnea, unspecified | CPT/HCPCS: A0425; A0429 ==

== ENCOUNTER 2022-10-03 07:46 | Emergency (ER) | payer MEDICARE ==
--- NOTE | 2022-10-03 08:08 | ED Physician Documentation ---
PD HPI BACK PAIN - Stated complaint Stated Complaint: BACK PX - Chief complaint Chief Complaint: Back Pain - History obtained from History obtained from: Patient - History of Present Illness Timing - onset: How many days ago (3) Timing - duration: Days (3) Timing - details: Gradual onset, Waxing and waning Location: Mid, Left (left flank in area of kidney, lower lung.) Quality: Pain, Spasm, Aching Associated symptoms: No: Fever, Weakness, Numbness, Incontinent of urine Worsened by: Movement. No: Twisting, Palpation Contributing factors: No: Twisting, Trauma Similar symptoms before: Has not had sx before Recently seen: Surgery (had vascular surgery right leg with fem-pop bypass and stenting 3 weeks ago. Has been fairly sedentary since as directed by surgeon.) Review of Systems Constitutional: denies: Fever, Chills Cardiac: reports: Calf pain (right lower leg hurting some post operatively but has steadily decreased since the surgery 3 weeks ago.). denies: Chest pain / pressure, Pedal edema Respiratory: reports: Dyspnea, Cough. denies: Wheezing : denies: Dysuria, Frequency, Hematuria Skin: denies: Rash, Lesions PD PAST MEDICAL HISTORY - Past Medical History Cardiovascular: Hypertension, High cholesterol, Peripheral Vascular Disease, Atrial fibrillation Respiratory: None Neuro: None Endocrine/Autoimmune: None GI: None IRONMOLDER: None : None HEENT: None Psych: Anxiety Musculoskeletal: Other Derm: Other - Past Surgical History Past Surgical History: Yes General: Appendectomy Cardiovascular: Vascular surgery HEENT: Tonsil/Adenoidectomy - Present Medications Home Medications: Ambulatory Orders Medication Instructions Recorded Confirmed cloNIDine [Catapres] 0.1 mg PO DAILY 09/14/13 08/31/22 Olmesartan Medoxomil 20 mg PO DAILY 03/09/17 08/31/22 Zolpidem Tartrate 10 mg PO QPM PRN 03/19/17 08/31/22 Multivitamin [Daily Multiple 1 tab PO DAILY 12/01/20 08/31/22 Vitamin] Apixaban [Eliquis] 5 mg ORAL BID 05/08/21 08/31/22 Rosuvastatin Calcium [Crestor] 5 mg PO DAILY 05/08/21 08/31/22 amLODIPine [Norvasc] 2.5 mg ORAL DAILY 07/26/21 08/31/22 Cholecalciferol [Vitamin D3] 25 mcg PO DAILY 08/01/22 08/31/22 Metoprolol Succinate [Toprol Xl] 50 mg PO QPM 08/01/22 08/31/22 cephALEXin [Keflex] 250 mg PO QID 08/31/22 08/31/22 Ciprofloxacin HCl 1 tablet PO BID 7 Days #14 tablet 09/03/22 Albuterol Sulf [Ventolin Hfa 2 puffs INH QID 10 Days #1 each 10/03/22 Inhaler] Amoxicillin 500 mg PO TID #15 cap 10/03/22 HYDROcod/ACETAM 5/325 [[place] 5/325] 1 ea PO Q8H PRN #14 tablet 10/03/22 hydroCHLOROthiazide [Hydrodiuril] 25 mg PO DAILY #20 tablet 10/03/22 - Allergies Allergies/Adverse Reactions: Allergies Allergy/AdvReac Type Severity Reaction Status Date / Time strawberry Allergy Unknown Verified 10/03/22 08:01 venom-honey bee Allergy swelling Verified 10/03/22 08:01 [bee venom (honey bee)] - Social History Does the pt smoke?: No Smoking Status: Never smoker Does the pt drink ETOH?: Yes Does the pt have substance abuse?: No - Immunizations Immunizations are current?: Yes - POLST Patient has POLST: No POLST Status: Full Code PD ED PE NORMAL - Vitals Vital signs reviewed: Yes - General General: Alert and oriented X 3, No acute distress, Well developed/nourished - Cardiac Cardiac: No murmur, No rub - Respiratory Respiratory: No respiratory distress. No: Clear bilaterally (congested sounds with some wheezing noted both sides lower lungs, without uper airway sounds. ) - Abdomen Abdomen: Normal bowel sounds, Soft, Non tender, Non distended - Back Back: No spinal TTP, Other (tender left flank at CVA area. NO rash nor sores. ) - Derm Derm: Normal color, Warm and dry Results - Vitals Vitals: Vital Signs - 24 hr 10/03/22 10/03/22 10/03/22 07:57 10:14 12:00 Temperature 36.8 C 36.5 C Heart Rate 111 H 103 H 94 Respiratory 22 10 L 17 Rate Blood Pressure 196/146 H 190/130 H O2 Saturation 95 94 97 10/03/22 12:24 Temperature Heart Rate 78 Respiratory 18 Rate Blood Pressure O2 Saturation Oxygen O2 Source Room air - Labs Labs: Laboratory Tests 10/03/22 10/03/22 10/03/22 08:37 08:37 09:01 WBC 7.8 RBC 4.50 Hgb 13.6 Hct 42.6 MCV 94.7 MCH 30.2 MCHC 31.9 L RDW 14.9 Plt Count 268 MPV 10.7 Neut # (Auto) 6.0 Lymph # (Auto) 1.1 L [place] # (Auto) 0.6 Eos # (Auto) 0.1 Baso # (Auto) 0.1 Absolute Nucleated RBC 0.00 Nucleated RBC % 0.0 Sodium 140 Potassium 3.8 Chloride 104 Carbon Dioxide 26 Anion Gap 10.0 BUN 19 Creatinine 0.9 Estimated GFR (MDRD) 60 L Glucose 112 H Calcium 9.3 Total Bilirubin 1.0 AST 21 ALT 14 Alkaline Phosphatase 67 B-Natriuretic Peptide 707 H Total Protein 6.3 L Albumin 3.4 Globulin 2.9 Albumin/Globulin Ratio 1.2 Lipase 40 Urine Color Urine Clarity Urine pH Ur Specific [place] Urine Protein Urine Glucose (UA) Urine Ketones Urine Occult Blood Urine Nitrite Urine Bilirubin Urine Urobilinogen Ur Leukocyte Esterase Urine RBC Urine WBC Ur Squamous Epith Cells Urine Bacteria Ur Microscopic Review Urine Culture Comments 10/03/22 11:15 WBC RBC Hgb Hct MCV MCH MCHC RDW Plt Count MPV Neut # (Auto) Lymph # (Auto) [place] # (Auto) Eos # (Auto) Baso # (Auto) Absolute Nucleated RBC Nucleated RBC % Sodium Potassium Chloride Carbon Dioxide Anion Gap BUN Creatinine Estimated GFR (MDRD) Glucose Calcium Total Bilirubin AST ALT Alkaline Phosphatase B-Natriuretic Peptide Total Protein Albumin Globulin Albumin/Globulin Ratio Lipase Urine Color LIGHT YELLOW Urine Clarity CLEAR Urine pH 6.5 Ur Specific [place] 1.010 Urine Protein NEGATIVE Urine Glucose (UA) NEGATIVE Urine Ketones NEGATIVE Urine Occult Blood MODERATE H Urine Nitrite NEGATIVE Urine Bilirubin NEGATIVE Urine Urobilinogen 0.2 (NORMAL) Ur Leukocyte Esterase NEGATIVE Urine RBC 6-10 H Urine WBC 0-3 Ur Squamous Epith Cells NONE SEEN Urine Bacteria Few Ur Microscopic Review INDICATED Urine Culture Comments NOT INDICATED - Rads (name of study) chest xray Radiology: Prelim report reviewed, EMP read indepedently (infiltrates diffusely in lower lungs bilaterally c/w CHF versus pneumonia versus atelectasis. With some effusion left. ), See rad report abd/pelvic CT Radiology: Prelim report reviewed (no kidney stones nor hydronephrosis. Lung infiltrates/congestion noted. ), EMP read indepedently, See rad report PD Medical Decision Making - ED course Complexity details: reviewed results (CT showing infiltrates lower lungs, as did CXR. Comparison by me with prior CXR showed similar. Prior reading for it was infiltrates versus CHF. Labs of bnp, CBC, chemistries were ordered by me and reviewed. They show normal white count, normal electrolytes, and elevated BNP of over 700, c/w some CH), re-evaluated patient (unclear if the lung infiltrates are atelectasis which would be c/w recent sedentary post leg bypass, or pneumonia with her recent coughing, or some element of CHF, though she does not appear fluid overloaded. Prior visit showed elevated BNP. Today is also moderately elevated at 707. Suggests CHF. ), considered differential (seems c/w kidney stone or UTI, but also concern for aortic process, splenic. Lower lung source with recent cough. ), d/w patient, d/w family (daughter) Reviewed Lab Results: results can suggest CHF as well as atelectasis or pneumonia. Can treat for all with abx, inhaler, and incentive spiromentry. Social Determinants of Health: lives with daughter, who will be able to help take care of her. Departure - Departure Disposition: 01 Home, Self Care Clinical Impression: Left flank pain, Lung infiltrate Condition: Stable Record reviewed to determine appropriate education?: Yes Instructions: ED Flank Pain Uncertain Cause Prescriptions: Amoxicillin 500 mg PO TID #15 cap hydroCHLOROthiazide [Hydrodiuril] 25 mg PO DAILY #20 tablet HYDROcod/ACETAM 5/325 [[place] 5/325] 1 ea PO Q8H PRN #14 tablet PRN Reason: Pain Albuterol Sulf [Ventolin Hfa Inhaler] 2 puffs INH QID 10 Days #1 each Comments: Your CT scan does not show any kidney stones nor obvious vascular process in the abdomen. You do have some diverticula but no signs of diverticulitis. I printed a copy of your CT report for you. The CT does show some fluid and compression of the lung tissue in the lower lung gan as well as a little fluid around the lung. This may be giving you some of the pain in your back and can correlate with the cough that you have been having. Differential explanation for this would be atelectasis which is improper inflation of the lungs due to not taking deep breaths, pneumonia, or fluid excess in the lungs (congestive failure). The appearance of your lungs right no w is similar to an x-ray from August 01. We can treat the infiltrates in the lung with a combination of incentive spirometry as well as use of an albuterol inhaler to help open the lung gan. I would also suggest a mild diuretic water pill daily for the next week or 2. For consideration of a infectious cause, it would make sense to also go with amoxicillin antibiotic. Regarding the flank pain, it may be largely muscular but consideration would also be some pleuritic pain from the effusion around the lung. I would suggest Tylenol 4 times a day regularly to help with the pain. Hopefully the above treatments will help decrease the pain as well. Add hydrocodone pain medicine I have to 1 tablet every 6 hours if needed for worse pain. This may be particularly prudent at night before bed as it can make you feel a little sleepy or lightheaded. Recheck if not improving well over the next several days and return if worsening. Otherwise follow-up with your primary care and also the Wound Care as planned. I sent your prescriptions to [facility] in [place]. They should be open today until 5 PM. Discharge Date/Time: 10/03/22 13:09
[2022-10-03] MEDS ORDERED: KETOROLAC 15 MG/ML VIAL IVP STA (08:17)
[2022-10-03] MEDS ORDERED: SODIUM CHLORIDE 0.9% 1,000 ML IV STA (08:17)
[2022-10-03] MEDS ORDERED: HYDROmorphone 0.5 MG/0.5 ML SYRINGE IVP STA (08:18)
[2022-10-03] MEDS ORDERED: iohexoL-300 100 ML VIAL ONE (08:34)
[2022-10-03 08:42] LABS: BASOPHILS # (AUTO) 0.1 10^3/uL (0.0-0.1); BASOPHILS % (AUTO) 0.8 %; EOSINOPHILS # (AUTO) 0.1 10^3/uL (0.0-0.7); EOSINOPHILS % (AUTO) 1.8 %; HCT - HEMATOCRIT 42.6 % (37.0-47.0); HGB - HEMOGLOBIN 13.6 g/dL (12.0-16.0); LYMPHOCYTES # (AUTO) 1.1 10^3/uL (1.5-3.5); LYMPHOCYTES % (AUTO) 13.8 %; MEAN CORPUSCULAR HEMOGLOBIN 30.2 pg (27.0-31.0); MEAN CORPUSCULAR HGB CONC 31.9 g/dL (32.0-36.0); MEAN CORPUSCULAR VOLUME 94.7 fL (81.0-99.0); MEAN PLATELET VOLUME 10.7 fL (7.9-10.8); MONOCYTES # (AUTO) 0.6 10^3/uL (0.0-1.0); NEUTROPHILS % (AUTO) 76.2 %; PLT - PLATELET COUNT 268 10^3/uL (130-450); RED CELL DISTRIBUTION WIDTH 14.9 % (12.0-15.0); WHITE BLOOD COUNT 7.8 x10^3/uL (4.8-10.8)
--- NOTE | 2022-10-03 08:56 | XRAY Report ---
PROCEDURE: Chest 1 View X-Ray INDICATIONS: left flank pain TECHNIQUE: One view of the chest was acquired. COMPARISON: None. FINDINGS: Surgical changes and devices: None. Lungs and pleura: As below Mediastinum: Heart size enlarged. There is obscuration of both hemidiaphragms as well as moderate va scular congestion present. Atherosclerotic vascular calcification noted in the aortic arch. Bones and chest wall: No suspicious bony lesions. Overlying soft tissues appear unremarkable. IMPRESSION: Primarily, moderate vascular congestion and bibasilar pleural effusions with atelectasis and or infil trate Reviewed by: Armani Acevedo MD on 10/03/2022 7:55 AM [place] Approved by: Armani Acevedo MD on 10/03/2022 7:55 AM [facility] Station ID: [id number]
[2022-10-03 09:51] LABS: ALBUMIN 3.4 g/dL (3.2-5.5); ALBUMIN/GLOBULIN RATIO 1.2 (1.0-2.2); CALCIUM 9.3 mg/dL (8.5-10.3); CREATININE 0.9 mg/dL (0.4-1.0); POTASSIUM 3.8 mmol/L (3.5-5.0); TOTAL PROTEIN 6.3 g/dL (6.7-8.2)
[2022-10-03] MEDS ORDERED: iohexoL-300 100 ML VIAL IVP ONE (10:12)
--- NOTE | 2022-10-03 10:46 | CT Report ---
PROCEDURE: CT abdomen and pelvis with contrast INDICATIONS: left flank to hip pain for 3 days CONTRAST: 100ml omni 300 TECHNIQUE: After the administration of contrast, 5 mm thick sections acquired from the diaphragms to the sym physis. 5 mm thick coronal and sagittal reformats were acquired. For radiation dose reduction, the following was used: automated exposure control, adjustment of mA and/or kV according to patient size . COMPARISON: 04/02/2017 FINDINGS: Lower thorax: Moderate bibasilar pleural effusions. Heart size is enlarged. Liver: Normal in size and attenuation. No contour deformity present. Biliary system: No calcified cholelithiasis or pericholecystic inflammation. No evidence of bile du ct dilatation. Pancreas: Small 1 cm low-density nodular structure noted in the body of the pancreas on image 3/, n ew from prior exam. Remainder the pancreas unremarkable. Spleen: Normal in size and density. Adrenals: Normal morphology and density. Reproductive system: Unremarkable as visualized. Urinary system: Normal renal size and attenuation. No renal calculi, hydronephrosis, or solid mass p resent. Urinary bladder unremarkable. Bilateral renal scarring noted Gastrointestinal system: Diffuse colonic diverticulosis without evidence of acute diverticulitis. Sig moid anastomosis noted similar to prior. No obstruction. Appendix: No findings to suggest acute appendicitis. Peritoneal spaces: No mesenteric or retroperitoneal adenopathy. No free air. No free fluid. Vasculature: The IVC, aorta and iliac vasculature are unremarkable. Musculoskeletal: Normal bone mineralization. No acute fractures. Abdominal wall intact without ronnie dence of ventral or inguinal hernias. L2 wedge-shaped compression fracture, new from prior exam IMPRESSION: Moderate bilateral pleural effusions Advanced colonic diverticulosis without evidence of diverticulitis. Incidental 1 cm low-density nodular structure in the body of the pancreas could reflect a pancreatic cyst, new from the prior exam. Differential would be small intraductal mucinous neoplasm. Wedge-shaped L2 compression fracture appears old, but is new from 2017 Reviewed by: Armani Acevedo MD on 10/03/2022 9:44 AM [facility] Approved by: Armani Acevedo MD on 10/03/2022 9:44 AM [facility] Station ID: [id number]
[2022-10-03 11:26] LABS: BILIRUBIN,URINE NEGATIVE (NEGATIVE); GLUCOSE, URINE (UA) NEGATIVE (NEGATIVE); KETONES,URINE (UA) NEGATIVE (NEGATIVE); LEUKOCYTE ESTERASE, URINE NEGATIVE (NEGATIVE); NITRITE,URINE NEGATIVE (NEGATIVE); OCCULT BLOOD,URINE MODERATE (NEGATIVE); PH,URINE 6.5 PH (5.0-7.5); PROTEIN,URINE NEGATIVE (NEGATIVE); UROBILINOGEN,URINE 0.2 (NORMAL) E.U./dL (NORMAL)
[2022-10-03 11:27] LABS: CLARITY,URINE CLEAR (CLEAR)
[2022-10-03 11:37] LABS: SQUAMOUS EPITHELIAL CELL,UR NONE SEEN (<= Few); WBC,URINE 0-3 /HPF (0-5)
[2022-10-03 11:38] LABS: BACTERIA,URINE Few /HPF (None Seen)
[2022-10-03] MEDS ORDERED: ALBUTEROL NEB 2.5 MG/3 ML INH STA (11:59)
[2022-10-03] MEDS ORDERED: AMOXICILLIN 250 MG CAPSULE PO STA (12:04)
[2022-10-03] MEDS ORDERED: hydroCHLOROthiazide 25 MG TABLET PO STA (12:08)
[2022-10-03 12:18] VITALS: BP 190/130
[2022-10-03] MEDS ORDERED: ALBUTEROL NEB 2.5 MG/3 ML INH ONE (12:20)
== END 2022-10-03 13:09 | disposition home or self-care (01) ==
LOC: EDUNIT# → ED 07:46
DX: R10.9 Unspecified abdominal pain (principal); R91.8 Other nonspecific abnormal finding of lung field
CPT/HCPCS: 36415; 71045; 74177; 80053; 81001; 83690; 83880; 85025; 94640; 96361; 96374; 99284; A9270; J1170; Q9967; 81003; 87086

== ENCOUNTER 2022-10-27 10:40 | Outpatient (CLI) | payer MEDICARE ==
--- NOTE | 2022-10-27 12:31 | XRAY Report ---
PROCEDURE: Ankle 3 View RT INDICATIONS: EVALUATE FOR OSTEOMYELITIS TECHNIQUE: 3 views of the ankle were acquired. COMPARISON: Right ankle radiographs 11/19/2020 FINDINGS: Bones: No acute fractures or dislocations. No focal cortical destruction is seen. Ankle mortise is n ormally aligned. No suspicious bony lesions. Soft tissues: Nonspecific soft tissue edema surrounding the ankle. IMPRESSION: Nonspecific soft tissue edema surrounding the ankle. No radiographic signs of osteomyeli tis. If there is continued clinical concern, MRI could be performed for further evaluation Reviewed by: Chago Christie MD on 10/27/2022 12:30 PM PST Approved by: Chago Christie MD on 10/27/2022 12:30 PM PST Station ID: [id number]
--- NOTE | 2022-10-28 16:45 | WOUND CARE PROGRESS NOTE ---
Assessment/Plan - Home Meds/Allergies Allergies strawberry Allergy (Verified 10/03/22 08:01) Unknown venom-honey bee [bee venom (honey bee)] Allergy (Verified 10/03/22 08:01) swelling
== END 2022-10-27 10:41 | disposition home or self-care (01) ==
LOC: DI 10:40
PROVIDERS: ATTEND Family Medicine
DX: S91.104A Unspecified open wound of right lesser toe(s) without damage to nail, initial encounter (principal); I87.2 Venous insufficiency (chronic) (peripheral); L97.316 Non-pressure chronic ulcer of right ankle with bone involvement without evidence of necrosis

== ENCOUNTER 2023-03-10 08:47 | Outpatient (CLI) | payer MEDICARE | END 2023-03-10 23:59 | disposition critical access hospital (66) | LOC: EMS 08:47 | DX: R60.0 Localized edema (principal); M79.662 Pain in left lower leg | CPT/HCPCS: A0425; A0429 ==

== ENCOUNTER 2023-03-10 08:56 | Emergency (ER) | payer MEDICARE ==
[2023-03-10 09:08] VITALS: BP 147/90
--- NOTE | 2023-03-10 09:17 | ED Physician Documentation ---
History of Present Illness - Stated complaint Stated Complaint: LEG SWELLING - Chief complaint Chief Complaint: Ext Problem - History obtained from History obtained from: Patient, Family, EMS - History of Present Illness Timing: Chronic Pain level max: 0 Pain level now: 0 - Additonal information Additional information: Patient is an 82-year-old female brought in by EMS for bilateral leg swelling. She has chronic foot wounds and is being treated by wound care. She also apparently has vascular stents in both of her legs, her right leg is chronically swollen and erythematous. Her daughter states that is more swollen than usual. Her left leg is usually paler than her right leg, but family states it is more swollen than usual as well. They state that they were at wound care 2 days ago and that the wound care provider wanted an ultrasound of her leg to exclude DVT. They state that it has not been scheduled in the past 2 days so they came to the emergency department instead. She is having no chest pain. No shortness of breath. She does take Eliquis at home. 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 : None HEENT: None Psych: Anxiety Musculoskeletal: Other Derm: Other - Past Surgical History Past Surgical History: Yes General: Appendectomy Ortho: Amputation Cardiovascular: Vascular surgery HEENT: Tonsil/Adenoidectomy - Present Medications Home Medications: Ambulatory Orders Medication Instructions Recorded Confirmed cloNIDine [Catapres] 0.1 mg PO DAILY 09/14/13 03/10/23 Zolpidem Tartrate 10 mg PO QPM PRN 03/19/17 03/10/23 Multivitamin [Daily Multiple 1 tab PO DAILY 12/01/20 03/10/23 Vitamin] Apixaban [Eliquis] 5 mg ORAL BID 05/08/21 03/10/23 Cholecalciferol [Vitamin D3] 25 mcg PO DAILY 08/01/22 03/10/23 Metoprolol Succinate [Toprol Xl] 50 mg PO QPM 08/01/22 03/10/23 Amox/Clav 875/125 [Augmentin 1 tablet PO Q12H 10 Days #20 tablet 01/20/23 03/10/23 875/125 Tab] HYDROcod/ACETAM 5/325 [[place] 5/325] 1 tab PO Q4H PRN #14 tablet 03/01/23 03/10/23 - Allergies Allergies/Adverse Reactions: Allergies Allergy/AdvReac Type Severity Reaction Status Date / Time strawberry Allergy Unknown Verified 03/10/23 09:05 venom-honey bee Allergy swelling Verified 03/10/23 09:05 [bee venom (honey bee)] - Social History Does the pt smoke?: No Smoking Status: Never smoker Does the pt drink ETOH?: Yes Does the pt have substance abuse?: No - Immunizations Immunizations are current?: Yes - POLST Patient has POLST: No POLST Status: Full Code PD ED PE NORMAL - Vitals Vital signs reviewed: Yes - General General: Alert and oriented X 3, No acute distress - HEENT HEENT: Moist mucous membranes - Neck Neck: Supple, no meningeal sign - Cardiac Cardiac: RRR - Respiratory Respiratory: No respiratory distress, Clear bilaterally - Abdomen Abdomen: Soft, Non tender, Non distended - Derm Derm: Warm and dry - Extremities Extremities: Other (Patient has a swollen and erythematous right leg, the left leg is also mildly swollen, has brisk cap refill in both feet. Neurovascular intact.) - Neuro Neuro: Alert and oriented X 3 Results - Vitals Vitals: Vital Signs - 24 hr 03/10/23 09:01 Temperature 37.2 C Heart Rate 62 Respiratory 20 Rate Blood Pressure 147/90 H O2 Saturation 96 Oxygen O2 Source Room air - Rads (name of study) Duplex ultrasound bilateral lower extremity Relevant Findings:: Final report received, See rad report PD Medical Decision Making - ED course Complexity details: reviewed results, re-evaluated patient, considered differential, d/w patient, d/w family ED course: 82-year-old female with chronic swelling of the right and left leg. Worsening lately according to the family and patient. Her right leg is normally mildly erythematous and the left leg is normally paler. There is no change in color from baseline. No numbness or tingling. 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 I did speak with her wound care physician, Dr. Hedrick. He will follow-up in the office with the patient. No DVT on ultrasound. No emergency medical condition at this time. Patient and family counseled regarding signs and symptoms for which I believe and urgent re-evaluation would be necessary. Patient with good understanding of and agreement to plan and is comfortable going home at this time This document was made in part using voice recognition software. While efforts are made to proofread this document, sound alike and grammatical errors may occur. Departure - Departure Disposition: 01 Home, Self Care Clinical Impression: Lower extremity edema Condition: Good Instructions: ED Edema Legs Bilateral Follow-Up: your,doctor in 1 week [Other] Comments: Thankfully your ultrasound does not show any evidence of blood clots today. Please follow-up with your doctor for further care. Please continue to see wound care for your wound on your leg. Discharge Date/Time: 03/10/23 12:09
--- NOTE | 2023-03-10 11:00 | Ultrasound Report ---
PROCEDURE: Duplex Ext Veins Bilateral INDICATIONS: Oscar Martinez MD TECHNIQUE: Real-time imaging, as well as color and pulse Doppler interrogation, were performed of the deep veins of both legs from the inguinal ligament to the popliteal fossa. COMPARISON: None FINDINGS: The deep veins are normally compressible, and free of intraluminal thrombus. Color and pu lse Doppler demonstrate normal phasic intravascular flow. There is normal augmentation response to d istal compression maneuver. IMPRESSION: No DVT in the lower extremities bilaterally. Reviewed by: Jace Frazier on 03/10/2023 10:59 AM PDT Approved by: Jace Frazier on 03/10/2023 10:59 AM PDT Station ID: [id number]
== END 2023-03-10 12:09 | disposition home or self-care (01) ==
LOC: EDUNIT# → ED 08:56
DX: R60.0 Localized edema (principal); L98.8 Other specified disorders of the skin and subcutaneous tissue; R59.0 Localized enlarged lymph nodes; I73.9 Peripheral vascular disease, unspecified; Z95.828 Presence of other vascular implants and grafts
CPT/HCPCS: 93970; 99283; 99284

== ENCOUNTER 2023-03-10 18:48 | Outpatient (CLI) | payer MEDICARE ==
--- NOTE | 2023-03-10 21:06 | Ultrasound Report ---
PROCEDURE: Pelvic Limited or F/U INDICATIONS: LOCALIZED ENLARGED LYMPH NODES TECHNIQUE: Real-time transabdominal scanning was performed of the pelvic organs, with image documentation. COMPARISON: CT abdomen pelvis 10/03/2022. FINDINGS: There are a few enlarged right inguinal lymph nodes redemonstrated, with the largest measuring up to 1.3 cm in short axis. These demonstrate preserved fatty branden. IMPRESSION: 1. Enlarged right inguinal lymph nodes with preserved fatty branden demonstrated. The findings are nonsp ecific and may be reactive. A neoplastic process cannot be fully excluded. Recommend clinical follow- up and a short-term repeat ultrasound if indicated. Reviewed by: Patrick Farris MD on 03/10/2023 9:05 PM PDT Approved by: Patrick Farris MD on 03/10/2023 9:05 PM PDT Station ID: [id number]
--- NOTE | 2023-03-10 21:13 | Ultrasound Report ---
PROCEDURE: Duplex Lwr Ext Arterial RT INDICATIONS: LOCALIZED ENLARGED LYMPH NODES TECHNIQUE: Color and pulse Doppler interrogation was performed of the right lower extremity arterial system, wit h image documentation. COMPARISON: 07/19/2022 FINDINGS: Common femoral artery: 146 cm/sec, with monophasic flow. Deep femoral artery: 64 cm/sec, with monophasic flow. There is a stent extending from the proximal to distal superficial femoral artery. Proximal superficial femoral artery proximal to the stent: 122 cm/sec, with monophasic flow. Mid superficial femoral artery: 133 cm/sec, with monophasic flow. Distal superficial femoral artery: 149 cm/sec, with monophasic flow. Popliteal artery: 50 cm/sec, with monophasic flow. Posterior tibial artery (proximal): 62 cm/sec, with monophasic low resistance flow. The distal post erior tibial artery was not evaluated due to overlying bandages. Anterior tibial artery/dorsalis pedis: Not evaluated due to overlying bandages. James-scale imaging description: There is scattered atherosclerotic plaque as well as a vascular sten t demonstrated. IMPRESSION: 1. Patent appearance of patient's stent in the right superficial femoral artery. 2. Limited evaluation of the lower leg due to overlying bandages. 3. No definite high-grade arterial stenosis demonstrated more proximally within the right lower extre mity. Reviewed by: Patrick Farris MD on 03/10/2023 9:11 PM PDT Approved by: Patrick Farris MD on 03/10/2023 9:11 PM PDT Station ID: [id number]
== END 2023-03-10 18:49 | disposition home or self-care (01) ==
LOC: DI 18:48
PROVIDERS: ATTEND Family Medicine
DX: R59.0 Localized enlarged lymph nodes (principal); I73.9 Peripheral vascular disease, unspecified; Z95.828 Presence of other vascular implants and grafts

== ENCOUNTER 2023-09-28 10:55 | Outpatient (CLI) | payer MEDICARE | END 2023-09-28 23:59 | disposition critical access hospital (66) | LOC: EMS 10:55 | DX: R04.0 Epistaxis (principal); Z79.01 Long term (current) use of anticoagulants | CPT/HCPCS: A0425; A0429 ==

== ENCOUNTER 2023-09-28 11:02 | Emergency (ER) | payer MEDICARE ==
[2023-09-28] MEDS ORDERED: OXYMETAZOLINE HCL 100 SPRAYS BOTTLE NAS STA (12:14)
[2023-09-28] MEDS ORDERED: SODIUM CHLORIDE 0.9% 1,000 ML IV STA (12:55)
[2023-09-28] MEDS ORDERED: DEXAMETHASONE 10 MG/ML VIAL IV STA (13:04)
--- NOTE | 2023-09-28 13:04 | ED Physician Documentation ---
PD ROB RODRIGUEZ - Stated complaint Stated Complaint: NOSEBLEED - Chief complaint Chief Complaint: Heent - History obtained from History obtained from: Patient, Family - Additional information Additional information: The patient comes to the emergency department with her daughter, ostensibly about a nosebleed. However, the daughter states that she is also concerned because the patient has had increased fatigue and joint aches for the past month. The daughter states she does not really know all of the details because she is not normally the one who goes to the doctor with the patient but rather, her sister who lives here in [place]. It is not clear why the sister is not here today. The patient also does not know a lot of information about her condition. All she states is that she hurts everywhere and that it takes her a long time to move around because she hurts so much. The patient has a history of skin cancer on her right lower extremity for which she has been on Keytruda. Apparently, the last Keytruda treatment was about a month ago and the most recent scheduled dose was canceled by the patient's oncologist last week because of the fatigue and joint aches. The patient states she is not on any pain medication. The oncologist apparently recently picked prescribed prednisone which was just picked up today. The patient has not had any doses. The daughter reports that there is some concern by one of the patient's physicians about possible failure of her femoral stents. However, no ultrasound has been done as yet and daughter is not exactly sure why there is a concern about the stents. The patient denies any numbness or tingling. No new or worsening pain in her lower extremities. The daughter and patient do not know if there was any decrease in pulses on the patient's last visit. The patient denies fevers or chills. No cough or shortness of breath. No nausea vomiting or diarrhea. The patient did have a bloody nose both yesterday and today. Yesterday, she states it was coming out of her left naris and was brief. Today, she had bleeding from her right naris and it lasted about 2-1/2 hours. However, the bleeding stopped about an hour ago and has not resumed. The patient is on Eliquis because of her vascular disease and stents. She states she did not take the Eliquis today because the nosebleed. No other complaints at this time. After my initial conversation with the patient and the daughter who accompanied her, I was able to have a more helpful conversation with the patient's local daughter, who goes to her doctors appointments. That daughter stated that she was told that the patient's fatigue and joint aches were from the Keytruda and that it is common to develop more severe side effects some months into treatment. Her oncologist had felt that it was not worth it for her to be on the Keytruda at this point because the ulceration where the cancer had been had healed up, indicating that the Keytruda had helped with the cancer. They have discussed getting a PET scan to evaluate whether there is any further cancer there, but right now, the daughter states that the oncologist does not feel this is urgent to be done. The patient is not currently on any other treatment for her cancer. She did not have any metastases as far as they know. The daughter states that the oncologist did not indicate exactly how long the side effects were expected to last, but that it would probably take some time for the side effects to wear off. As far as the stents, the main concern was that the patient has had swelling, especially in her right lower extremity, which is also the extremity affected by the cancer. The patient had declined to have any pain medication at home which is why she is not on any. Her oncologist had suggested she take Tylenol and ibuprofen, but the patient has been resistant to taking anything despite her concerns of her being in pain. She has not been acutely ill with anything else lately. 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 - Past Surgical History Past Surgical History: Yes General: Appendectomy Ortho: Amputation Cardiovascular: Vascular surgery HEENT: Tonsil/Adenoidectomy - Present Medications Home Medications: Ambulatory Orders Medication Instructions Recorded Confirmed cloNIDine [Catapres] 0.1 mg PO DAILY 09/14/13 09/15/23 Zolpidem Tartrate 10 mg PO QPM PRN 03/19/17 09/15/23 Multivitamin [Daily Multiple 1 tab PO DAILY 12/01/20 09/15/23 Vitamin] Apixaban [Eliquis] 5 mg ORAL BID 05/08/21 09/15/23 Cholecalciferol [Vitamin D3] 25 mcg PO DAILY 08/01/22 09/15/23 Metoprolol Succinate [Toprol Xl] 50 mg PO QPM 08/01/22 09/15/23 HYDROcod/ACETAM 5/325 [[place] 5/325] 1 tab PO Q4H PRN #14 tablet 03/01/23 09/15/23 Doxycycline Hyclate 100 mg PO BID 14 Days #28 cap 03/15/23 09/15/23 Gentamicin Sulfate See Rx Instructions .ROUTE 03/15/23 09/15/23 .COMPLEX #30 gm Aspirin [Aspirin Regimen] 81 mg PO DAILY 05/18/23 09/15/23 Olmesartan Medoxomil [Benicar] 20 mg PO DAILY 05/18/23 09/15/23 Rosuvastatin Calcium [Crestor] 5 mg PO DAILY 05/18/23 09/15/23 amLODIPine [Norvasc] 5 mg PO DAILY 05/18/23 09/15/23 Triamcinolone 0.5% Cream [Kenalog 1 applic TOP BID #15 gm 06/22/23 09/15/23 0.5% Cream] Gabapentin [Neurontin] 100 mg PO HS 06/29/23 09/15/23 Levothyroxine [Synthroid] 50 mcg PO QDAC #60 tablet 09/14/23 predniSONE [Deltasone] 4 tablet PO 0800 7 Days #28 tablet 09/14/23 HYDROcod/ACETAM 5/325 [[place] 5/325] 1 - 2 tablet PO Q6H PRN #14 tablet 09/28/23 - Allergies Allergies/Adverse Reactions: Allergies Allergy/AdvReac Type Severity Reaction Status Date / Time strawberry Allergy Unknown Verified 09/28/23 11:17 venom-honey bee Allergy swelling Verified 09/28/23 11:17 [bee venom (honey bee)] - Social History Does the pt smoke?: No Smoking Status: Never smoker Does the pt drink ETOH?: Yes Does the pt have substance abuse?: No - Immunizations Immunizations are current?: Yes - POLST Patient has POLST: No POLST Status: Full Code PD ED PE NORMAL - Vitals Vital signs reviewed: Yes - General General: No acute distress, Well developed/nourished, Other (Alert, answers questions appropriately.) - HEENT HEENT: Atraumatic, PERRL, EOMI, Moist mucous membranes, Other (No active epistaxis. Tiny mucosal abrasion septally on right side.) - Neck Neck: Supple, no meningeal sign - Cardiac Cardiac: RRR, No murmur - Respiratory Respiratory: No respiratory distress, Clear bilaterally - Abdomen Abdomen: Soft, Non tender, Non distended - Derm Derm: Warm and dry, Other (Moderate erythema of right lower extremity with flaking skin and woody induration. Appearance consistent with chronic peripheral vascular disease. Left lower extremity with some bronzing of the skin but otherwise normal color and no edema. ) - Extremities Extremities: No deformity, Other (Moderate nonpitting edema with induration of chronic vascular disease in the right lower extremity. Left lower extremity is without edema.) - Neuro Neuro: Alert and oriented X 3 - Psych Psych: Normal mood, Normal affect - Free text exam Free text exam: Healing ulcer right anterior tibial area with scabbing mild moisture centrally located but no drainage. No fluctuance. Results - Vitals Vitals: Vital Signs - 24 hr 09/28/23 09/28/23 09/28/23 11:11 11:17 12:28 Temperature 36.7 C Heart Rate 93 94 90 Respiratory 18 16 16 Rate Blood Pressure 146/106 H 148/90 H 137/84 H O2 Saturation 93 93 98 If not protocol : Oxygen Flow, liters/minute 09/28/23 09/28/23 09/28/23 13:25 14:45 14:46 Temperature Heart Rate 103 H Respiratory 18 Rate Blood Pressure 145/100 H O2 Saturation 96 83 L 95 If not protocol 2 : Oxygen Flow, liters/minute Oxygen O2 Source Nasal cannula - Labs Labs: Laboratory Tests 09/28/23 09/28/23 09/28/23 13:06 13:06 13:06 WBC 8.8 RBC 4.73 Hgb 12.8 Hct 40.5 MCV 85.6 MCH 27.1 MCHC 31.6 L RDW 22.1 H Plt Count 263 MPV 9.7 Neut # (Auto) 6.7 H Lymph # (Auto) 1.2 L Hartley # (Auto) 0.7 Eos # (Auto) 0.2 Baso # (Auto) 0.1 Absolute Nucleated RBC 0.00 Nucleated RBC % 0.0 PT 17.2 H INR 1.6 H Sodium 138 Potassium 3.7 Chloride 105 Carbon Dioxide 27 Anion Gap 6.0 BUN 19 Creatinine 0.8 Estimated GFR (MDRD) 68 L Glucose 100 Calcium 9.1 Total Bilirubin 0.4 AST 16 ALT 7 L Alkaline Phosphatase 64 Total Protein 6.9 Albumin 3.4 Globulin 3.5 Albumin/Globulin Ratio 1.0 Lipase 63 - Rads (name of study) arterial US BLE Relevant Findings:: Final report received, See rad report (Good flow bilaterally, no occlusion. Stent visualized in right femoropopliteal arteries) PD Medical Decision Making - ED course Complexity details: reviewed results, re-evaluated patient, considered differential, d/w patient ED course: The patient was worked up with labs and arterial ultrasound of her bilateral lower extremities and treated with IV fluids and Decadron and later, a small dose of Dilaudid. She was found to be feeling better on reevaluation. The patient's labs and ultrasound all looked good. The patient was found to have good blood flow in both of her lower extremities. I was able to discuss the case with Dr. Foreman, the patient's oncologist later in the patient's visit. He stated that he had prescribed the prednisone 2 weeks ago and she was supposed to have started then, which would have helped her symptoms a lot. It is not clear what has happened and why she did not get this started or picked up earlier. He did state that this should be expected to be very helpful with her symptoms. As far as the stents, who states this was not a concern of his that as it is not his area of specialty and he is not sure exactly where the concern was coming from. He did state that they would probably plan to PET scan her later although for now, they will continue to hold the Keytruda. I relayed these things to the family and the patient. I have addressed the daughters wish of the patient be admitted "for rest" and have advised her the patient does not meet any criteria for admission at this point. I have advised them to start the steroids tomorrow as we have already given the patient a dose of steroid here in the ED today. We have discussed continuing to pursue getting help at home, as well as usual indications for return. Departure - Departure Disposition: 01 Home, Self Care Clinical Impression: Generalized body aches Fatigue Qualifiers: Fatigue type: unspecified Qualified Code(s): R53.83 - Other fatigue Condition: Stable Instructions: ED Muscle Aching, ED Weakness [facility] Prescriptions: HYDROcod/ACETAM 5/325 [[place] 5/325] 1 - 2 tablet PO Q6H PRN #14 tablet PRN Reason: Pain Comments: Your laboratory studies overall look good. Your ultrasound shows very good blood flow on both of your lower extremities and there is no evidence of any stent collapse or occlusion. It is not clear what the exact concern was with the stents but at this point in time, there is no emergent condition with regard to blood flow in your legs. As far as your symptoms, your case was discussed with Dr. Foreman, who said that he had prescribed the steroids a couple of weeks ago and that generally, these are very effective in treating the symptoms you have. It is important that you be on the medications that your oncologist Recommends, because this will prevent some of these problems and difficulties you are having. You have been given a first dose of steroids here in the ED, and should start your prescription steroids tomorrow. Dr. Foreman said you will most likely notice a significant difference in the next few days after starting them. As far as pain otherwise, we will send a prescription for some pain medicine for you to have as backup at home if needed. The prescription for these has been electronically transmitted to the [facility] here in [place]. You should continue to work with outpatient resources for home health assistance set up. Please continue your specialists about any further concerns, as well as with your primary doctor. Also be sure you are drinking plenty of fluids every day, preferably 8 to 10 cups of water per day. Forms: PCP List
[2023-09-28 13:12] LABS: BASOPHILS # (AUTO) 0.1 10^3/uL (0.0-0.1); BASOPHILS % (AUTO) 0.7 %; EOSINOPHILS # (AUTO) 0.2 10^3/uL (0.0-0.7); EOSINOPHILS % (AUTO) 1.9 %; HCT - HEMATOCRIT 40.5 % (37.0-47.0); HGB - HEMOGLOBIN 12.8 g/dL (12.0-16.0); LYMPHOCYTES # (AUTO) 1.2 10^3/uL (1.5-3.5); MEAN CORPUSCULAR HEMOGLOBIN 27.1 pg (27.0-31.0); MEAN CORPUSCULAR HGB CONC 31.6 g/dL (32.0-36.0); MEAN CORPUSCULAR VOLUME 85.6 fL (81.0-99.0); MEAN PLATELET VOLUME 9.7 fL (7.9-10.8); MONOCYTES # (AUTO) 0.7 10^3/uL (0.0-1.0); MONOCYTES % (AUTO) 7.5 %; NEUTROPHILS # (AUTO) 6.7 10^3/uL (1.5-6.6); NEUTROPHILS % (AUTO) 75.6 %; PLT - PLATELET COUNT 263 10^3/uL (130-450); RED BLOOD COUNT 4.73 10^6/uL (4.20-5.40); RED CELL DISTRIBUTION WIDTH 22.1 % (12.0-15.0); WHITE BLOOD COUNT 8.8 x10^3/uL (4.8-10.8)
[2023-09-28 13:27] LABS: ALBUMIN 3.4 g/dL (3.2-5.5); BILIRUBIN,TOTAL 0.4 mg/dL (0.2-1.0); CALCIUM 9.1 mg/dL (8.5-10.3); CREATININE 0.8 mg/dL (0.6-1.3); POTASSIUM 3.7 mmol/L (3.5-4.5); TOTAL PROTEIN 6.9 g/dL (6.4-8.9)
[2023-09-28 13:31] VITALS: BP 145/100
[2023-09-28 13:34] LABS: INR 1.6 (0.8-1.2); PT - PROTHROMBIN TIME 17.2 secs (9.9-12.6)
[2023-09-28] MEDS ORDERED: HYDROmorphone 0.5 MG/0.5 ML SYRINGE IVP STA (14:18)
[2023-09-28 14:59] VITALS: O2SAT 95
--- NOTE | 2023-09-28 16:40 | Ultrasound Report ---
PROCEDURE: Duplex Lwr Ext Arterial Bilat INDICATIONS: h/o stents, swelling, vasc worried about failure TECHNIQUE: Color and pulse Doppler interrogation was performed of both lower extremity arterial systems, with im age documentation. COMPARISON: 03/10/2023 FINDINGS: Right lower extremity: Common femoral artery: 101 cm/sec, with biphasic flow. Deep femoral artery: 65 cm/sec, with biphasic flow. Proximal superficial femoral artery: 130 cm/sec, with biphasic flow. Mid superficial femoral artery: 102 cm/sec, with biphasic flow. Distal superficial femoral artery: 94 cm/sec, with biphasic flow. Popliteal artery: 84 cm/sec, with biphasic flow. Posterior tibial artery: 71 cm/sec, with biphasic flow. Anterior tibial artery/dorsalis pedis: 44/48 cm/sec, with biphasic flow. James-scale imaging description: A right mid SFA to popliteal stent is patent. Mild diffuse plaque. Left lower extremity: Common femoral artery: 91 cm/sec, with biphasic flow. Deep femoral artery: 69 cm/sec, with biphasic flow. Proximal superficial femoral artery: 51 cm/sec, with biphasic flow. Mid superficial femoral artery: 84 cm/sec, with biphasic flow. Distal superficial femoral artery: 63 cm/sec, with biphasic flow. Popliteal artery: 53 cm/sec, with biphasic flow. Posterior tibial artery: 23 cm/sec, with biphasic flow. Anterior tibial artery/dorsalis pedis: 47/3 cm/sec, with biphasic flow. James-scale imaging description: Mild diffuse plaque. IMPRESSION: 1. A right mid SFA to popliteal stent is patent. 2. No other significant stenosis identified. Reviewed by: Jace Frazier MD on 09/28/2023 4:39 PM PST Approved by: Jace Frazier MD on 09/28/2023 4:39 PM PST Station ID: [id number]
== END 2023-09-28 16:16 | disposition home or self-care (01) ==
LOC: EDUNIT# → ED 11:02
DX: R53.83 Other fatigue (principal); R52 Pain, unspecified; I48.91 Unspecified atrial fibrillation; Z79.01 Long term (current) use of anticoagulants; I10 Essential (primary) hypertension
CPT/HCPCS: 36415; 80053; 83690; 85025; 85610; 93925; 96374; 99283; 99284; A9270; J1170

== ENCOUNTER 2023-09-28 16:09 | Outpatient (CLI) | payer MEDICARE | END 2023-09-28 16:10 | disposition EMS.NT | LOC: EMS 16:09 | DX: R26.81 Unsteadiness on feet (principal) ==

== ENCOUNTER 2023-11-07 15:54 | Outpatient (CLI) | payer MEDICARE ==
--- NOTE | 2023-11-08 08:36 | XRAY Report ---
PROCEDURE: Chest 2V INDICATIONS: AFIB TECHNIQUE: 2 views of the chest were acquired. COMPARISON: Chest x-ray, 10/03/2022. FINDINGS: Surgical changes and devices: None. Lungs and pleura: Mild increased pulmonary vascularity. Small pleural effusions bilaterally. No pneu mothorax. Mediastinum: Mediastinal contours appear normal. Heart size is normal. Bones and chest wall: Osteopenia. No suspicious bony lesions. Overlying soft tissues appear unremark able. IMPRESSION: 1. Mildly increased pulmonary vascularity and small bilaterally consistent with CHF. Reviewed by: Ronak Palomino MD on 11/08/2023 8:35 AM PST Approved by: Ronak Palomino MD on 11/08/2023 8:35 AM PST Station ID: [id number]
== END 2023-11-07 15:55 | disposition home or self-care (01) ==
LOC: DI 15:54
PROVIDERS: ATTEND Family Medicine
DX: I10 Essential (primary) hypertension (principal); I48.0 Paroxysmal atrial fibrillation; J90 Pleural effusion, not elsewhere classified

== ENCOUNTER 2023-11-15 10:45 | Outpatient (CLI) | payer MEDICARE | END 2023-11-15 10:46 | disposition critical access hospital (66) | LOC: EMS 10:45 | DX: M25.50 Pain in unspecified joint (principal); R53.1 Weakness | CPT/HCPCS: A0425; A0429 ==

== ENCOUNTER 2023-11-15 10:51 | Emergency (ER) | payer MEDICARE ==
--- NOTE | 2023-11-15 12:15 | ED Physician Documentation ---
History of Present Illness - Stated complaint Stated Complaint: JOINT PX - Chief complaint Chief Complaint: General - History obtained from History obtained from: Patient, Family - History of Present Illness Timing: Chronic Pain level max: 7 Pain level now: 7 - Additonal information Additional information: Patient is an 83-year-old female who lives [place] home alone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 Also history of thyroid cancer. Family and patient confirmed that they have stopped any chemotherapy. They state they had talked to the [facility] about palliative/hospice care, but were told that there were no spots available. Unclear when this was. Patient states that she has continuing pain at home. She is only on Tylenol for pain. She states that her primary care doctor told her to come to the ER today to "be admitted". No fevers. No chills. No cough. No congestion. Daughter is at bedside with the patient. Review of Systems Constitutional: denies: Fever, Chills Respiratory: denies: Cough GI: denies: Vomiting, Diarrhea Skin: denies: Rash Musculoskeletal: denies: Neck pain, Back pain Neurologic: denies: Headache PD PAST MEDICAL HISTORY - Past Medical History Cardiovascular: Hypertension, High cholesterol, Peripheral Vascular Disease, Atrial fibrillation Respiratory: None Neuro: None Endocrine/Autoimmune: None GI: None EXPLOSIVE SPECIALIST: None : None HEENT: None Psych: Anxiety Musculoskeletal: Other Derm: Other - Past Surgical History Past Surgical History: Yes General: Appendectomy Ortho: Amputation Cardiovascular: Vascular surgery HEENT: Tonsil/Adenoidectomy - Present Medications Home Medications: Ambulatory Orders Medication Instructions Recorded Confirmed cloNIDine [Catapres] 0.1 mg PO DAILY 09/14/13 11/15/23 Zolpidem Tartrate 10 mg PO QPM PRN 03/19/17 11/15/23 Multivitamin [Daily Multiple 1 tab PO DAILY 12/01/20 11/15/23 Vitamin] Apixaban [Eliquis] 5 mg ORAL BID 05/08/21 11/15/23 Cholecalciferol [Vitamin D3] 25 mcg PO DAILY 08/01/22 11/15/23 Metoprolol Succinate [Toprol Xl] 50 mg PO QPM 08/01/22 11/15/23 Aspirin [Aspirin Regimen] 81 mg PO DAILY 05/18/23 11/15/23 Olmesartan Medoxomil [Benicar] 20 mg PO DAILY 05/18/23 11/15/23 Rosuvastatin Calcium [Crestor] 5 mg PO DAILY 05/18/23 11/15/23 amLODIPine [Norvasc] 5 mg PO DAILY 05/18/23 11/15/23 Triamcinolone 0.5% Cream [Kenalog 1 applic TOP BID #15 gm 06/22/23 11/15/23 0.5% Cream] Levothyroxine [Synthroid] 50 mcg PO QDAC #60 tablet 09/14/23 11/15/23 - Allergies Allergies/Adverse Reactions: Allergies Allergy/AdvReac Type Severity Reaction Status Date / Time strawberry Allergy Unknown Verified 11/15/23 11:13 venom-honey bee Allergy swelling Verified 11/15/23 11:13 [bee venom (honey bee)] - Social History Does the pt smoke?: No Smoking Status: Never smoker Does the pt drink ETOH?: Yes Does the pt have substance abuse?: No - Immunizations Immunizations are current?: Yes - POLST Patient has POLST: No POLST Status: Full Code PD ED PE NORMAL - Vitals Vital signs reviewed: Yes - General General: Alert and oriented X 3, No acute distress - HEENT HEENT: PERRL, Moist mucous membranes - Neck Neck: Supple, no meningeal sign - Cardiac Cardiac: RRR, Strong equal pulses - Respiratory Respiratory: No respiratory distress, Clear bilaterally - Abdomen Abdomen: Soft, Non tender, Non distended - Derm Derm: Warm and dry - Extremities Extremities: Other (Mild swelling and redness of the right lower extremity. Negative ultrasound recently. This is the site of the malleolus cancer. Does not appear infected.) - Neuro Neuro: Alert and oriented X 3 - Psych Psych: Normal mood, Normal affect Results - Vitals Vitals: Vital Signs - 24 hr 11/15/23 11/15/23 11/15/23 11:10 11:44 13:26 Temperature 37.1 C Heart Rate 81 105 H 136 H Respiratory 18 26 H 18 Rate Blood Pressure 142/106 H 139/89 H 150/113 H O2 Saturation 96 92 92 If not protocol : Oxygen Flow, liters/minute 11/15/23 11/15/23 11/15/23 14:54 15:03 16:00 Temperature 36.3 C L Heart Rate 127 H 113 H 113 H Respiratory 16 16 17 Rate Blood Pressure 164/130 H 143/92 H O2 Saturation 94 92 95 If not protocol 3 : Oxygen Flow, liters/minute 11/15/23 11/15/23 11/15/23 17:13 19:00 21:00 Temperature Heart Rate 98 114 H 80 Respiratory 17 14 16 Rate Blood Pressure 141/74 H O2 Saturation 95 97 100 If not protocol : Oxygen Flow, liters/minute Oxygen O2 Source Room air Oxygen Flow Rate 3 - Labs Labs: Laboratory Tests 11/15/23 11/15/23 11/15/23 12:25 12:25 13:25 WBC 7.6 RBC 4.06 L Hgb 11.0 L Hct 35.6 L MCV 87.7 MCH 27.1 MCHC 30.9 L RDW 18.6 H Plt Count 293 MPV 9.9 Neut # (Auto) 5.9 Lymph # (Auto) 0.9 L Becker # (Auto) 0.6 Eos # (Auto) 0.2 Baso # (Auto) 0.1 Absolute Nucleated RBC 0.00 Nucleated RBC % 0.0 Sodium 139 Potassium 3.5 Chloride 105 Carbon Dioxide 25 Anion Gap 9.0 BUN 16 Creatinine 0.9 Estimated GFR (MDRD) 60 L Glucose 94 Calcium 9.1 Phosphorus 2.9 Magnesium 1.7 Total Bilirubin 0.5 AST 18 ALT 8 L Alkaline Phosphatase 56 Total Protein 6.8 Albumin 3.8 Globulin 3.0 Albumin/Globulin Ratio 1.3 Lipase 67 Urine Color YELLOW Urine Clarity CLEAR Urine pH 7.0 Ur Specific [place] 1.015 Urine Protein NEGATIVE Urine Glucose (UA) NEGATIVE Urine Ketones NEGATIVE Urine Occult Blood NEGATIVE Urine Nitrite NEGATIVE Urine Bilirubin NEGATIVE Urine Urobilinogen 0.2 (NORMAL) Ur Leukocyte Esterase NEGATIVE Ur Microscopic Review NOT INDICATED Urine Culture Comments NOT INDICATED PD Medical Decision Making - ED course Complexity details: reviewed results, re-evaluated patient, considered differential, d/w patient ED course: 83-year-old female with diffuse pain. She has metastatic cancer. Not undergoing chemotherapy any further. Interested in hospice and possible long-term placement. Social work consulted. Hospice consulted. Information given about hospice. IV Dilaudid given for pain. They are looking for possible placement for the patient. Will be boarded in the ER until then. Signed out to the oncoming emergency department physician. This document was made in part using voice recognition software. While efforts are made to proofread this document, sound alike and grammatical errors may occur. Departure - Departure Clinical Impression: Cancer related pain Condition: Stable Forms: PCP List
[2023-11-15] MEDS: oxyCODONE 5 MG TABLET PO STA (12:35)
[2023-11-15] MEDS: SODIUM CHLORIDE 0.9% 1,000 ML IV STA ×2 (12:36→12:39)
[2023-11-15 12:48] LABS: BASOPHILS # (AUTO) 0.1 10^3/uL (0.0-0.1); BASOPHILS % (AUTO) 0.7 %; EOSINOPHILS # (AUTO) 0.2 10^3/uL (0.0-0.7); EOSINOPHILS % (AUTO) 2.1 %; HCT - HEMATOCRIT 35.6 % (37.0-47.0); LYMPHOCYTES # (AUTO) 0.9 10^3/uL (1.5-3.5); LYMPHOCYTES % (AUTO) 11.9 %; MEAN CORPUSCULAR HEMOGLOBIN 27.1 pg (27.0-31.0); MEAN CORPUSCULAR HGB CONC 30.9 g/dL (32.0-36.0); MEAN CORPUSCULAR VOLUME 87.7 fL (81.0-99.0); MEAN PLATELET VOLUME 9.9 fL (7.9-10.8); MONOCYTES # (AUTO) 0.6 10^3/uL (0.0-1.0); MONOCYTES % (AUTO) 7.5 %; NEUTROPHILS # (AUTO) 5.9 10^3/uL (1.5-6.6); NEUTROPHILS % (AUTO) 77.5 %; PLT - PLATELET COUNT 293 10^3/uL (130-450); RED BLOOD COUNT 4.06 10^6/uL (4.20-5.40); RED CELL DISTRIBUTION WIDTH 18.6 % (12.0-15.0); WHITE BLOOD COUNT 7.6 x10^3/uL (4.8-10.8)
[2023-11-15 13:04] LABS: ALBUMIN 3.8 g/dL (3.2-5.5); ALBUMIN/GLOBULIN RATIO 1.3 (1.0-2.2); BILIRUBIN,TOTAL 0.5 mg/dL (0.2-1.0); CALCIUM 9.1 mg/dL (8.5-10.3); CREATININE 0.9 mg/dL (0.6-1.3); MAGNESIUM 1.7 mg/dL (1.7-2.3); PHOSPHORUS 2.9 mg/dL (2.5-5.0); POTASSIUM 3.5 mmol/L (3.5-4.5); TOTAL PROTEIN 6.8 g/dL (6.4-8.9)
[2023-11-15 13:40] LABS: BILIRUBIN,URINE NEGATIVE (NEGATIVE); GLUCOSE, URINE (UA) NEGATIVE (NEGATIVE); KETONES,URINE (UA) NEGATIVE (NEGATIVE); LEUKOCYTE ESTERASE, URINE NEGATIVE (NEGATIVE); NITRITE,URINE NEGATIVE (NEGATIVE); OCCULT BLOOD,URINE NEGATIVE (NEGATIVE); PROTEIN,URINE NEGATIVE (NEGATIVE); UROBILINOGEN,URINE 0.2 (NORMAL) E.U./dL (NORMAL)
[2023-11-15 13:41] LABS: CLARITY,URINE CLEAR (CLEAR)
--- NOTE | 2023-11-15 14:10 | XRAY Report ---
PROCEDURE: Shoulder 2+V RT INDICATIONS: R shoulder pain TECHNIQUE: 3 views of the shoulder were acquired. COMPARISON: Chest x-ray 11/07/2023 FINDINGS: Bones: No fractures or dislocations. No suspicious bony lesions. Visualized ribs appear intact. Soft tissues: No suspicious soft tissue calcifications. The visualized right lung demonstrates mild increased opacity. IMPRESSION: Appearance of mild increased right lower lobe opacity. This could represent effusion/consolidation. I t appears slightly more prominent when compared to 524. Reviewed by: Michelle Medrano MD on 11/15/2023 2:08 PM PST Approved by: Michelle Medrano MD on 11/15/2023 2:08 PM PST Station ID: [id number]
[2023-11-15] MEDS: HYDROmorphone 1 MG/ML CARPUJECT IVP STA (14:52)
[2023-11-15] MEDS: ACETAMINOPHEN 500 MG TABLET PO PRN (21:01)
[2023-11-15] MEDS: ONDANSETRON 4 MG/2 ML VIAL IVP PRN (21:01)
[2023-11-15] MEDS: APIXABAN 5 MG TABLET PO SCH (21:05)
[2023-11-15] MEDS: oxyCODONE 5 MG TABLET PO PRN (21:05)
[2023-11-15] MEDS: METOPROLOL TARTRATE 50 MG TABLET PO SCH (21:05)
[2023-11-16 05:34] LABS: BASOPHILS # (AUTO) 0.1 10^3/uL (0.0-0.1); EOSINOPHILS # (AUTO) 0.3 10^3/uL (0.0-0.7); EOSINOPHILS % (AUTO) 3.7 %; LYMPHOCYTES # (AUTO) 0.9 10^3/uL (1.5-3.5); LYMPHOCYTES % (AUTO) 12.9 %; MEAN CORPUSCULAR HEMOGLOBIN 27.9 pg (27.0-31.0); MEAN CORPUSCULAR HGB CONC 30.3 g/dL (32.0-36.0); MEAN CORPUSCULAR VOLUME 91.9 fL (81.0-99.0); MEAN PLATELET VOLUME 9.9 fL (7.9-10.8); MONOCYTES # (AUTO) 0.8 10^3/uL (0.0-1.0); MONOCYTES % (AUTO) 12.4 %; NEUTROPHILS # (AUTO) 4.7 10^3/uL (1.5-6.6); NEUTROPHILS % (AUTO) 69.7 %; PLT - PLATELET COUNT 267 10^3/uL (130-450); RED BLOOD COUNT 3.59 10^6/uL (4.20-5.40); RED CELL DISTRIBUTION WIDTH 18.3 % (12.0-15.0); WHITE BLOOD COUNT 6.7 x10^3/uL (4.8-10.8)
[2023-11-16 05:48] LABS: CALCIUM 8.3 mg/dL (8.5-10.3); CREATININE 1.1 mg/dL (0.6-1.3); POTASSIUM 3.9 mmol/L (3.5-4.5)
[2023-11-16] MEDS: LEVOTHYROXINE 25 MCG TABLET PO SCH (08:12)
[2023-11-16] MEDS: PANTOPRAZOLE 40 MG TABLET PO SCH (08:13)
--- NOTE | 2023-11-16 09:38 | ED Physician Documentation ---
ED Addendum - Addendum Addendum: 11/16/23 09:38 Patient seen and examined at bedside. She has a family member there. Awaiting social work evaluation. Family wanted to make sure she was getting her thyroid medication, and it does look like Dr. Martinez had ordered this as a scheduled medication and did receive it this morning. Otherwise her pain is well- controlled and she voices no current complaints. 11/16/23 17:27 Reportedly has been accepted to [facility] but we are waiting on insurance verification. Not sure when that will happen. Care to evening EDMD at shift change.
--- NOTE | 2023-11-16 21:18 | ED Physician Documentation ---
ED Addendum - Addendum Addendum: 11/16/23 21:18 No changes during my shift, patient signed out to the oncoming emergency department provider
[2023-11-17 07:47] VITALS: O2SAT 92
[2023-11-17 13:11] VITALS: BP 114/78
--- NOTE | 2023-11-17 14:19 | ED Physician Documentation ---
ED Addendum - Addendum Addendum: 11/17/23 14:17 The patient was seen by social work again today. There was confirmations of the patient being able to go to retirement. I did fill out the initial forms required including listing her medicines and I sent prescriptions to [facility] at the request and direction of [facility]. The patient was stable here without any particular complaints. Disposition: The patient is transferred to retirement facility. Diagnoses: 1. Cancer related pain 2. Generalized weakness
== END 2023-11-17 14:52 | disposition home or self-care (01) ==
LOC: EDUNIT# → ED 10:51 → SUPCPDRO 10:51 → ED 11-17 14:52
DX: G89.3 Neoplasm related pain (acute) (chronic) (principal); C80.1 Malignant (primary) neoplasm, unspecified; I10 Essential (primary) hypertension; I48.91 Unspecified atrial fibrillation; Z11.52 Encounter for screening for COVID-19; Z79.01 Long term (current) use of anticoagulants; R53.1 Weakness
CPT/HCPCS: 36415; 73030; 80048; 80053; 81003; 83690; 83735; 84100; 85025; 96374; 96375; 99284; A9270; J1170; 81001; 87086

== ENCOUNTER 2023-12-11 11:25 | Outpatient (CLI) | payer MEDICARE | END 2023-12-11 11:26 | disposition critical access hospital (66) | LOC: EMS 11:25 | DX: R09.89 Other specified symptoms and signs involving the circulatory and respiratory systems (principal); M25.59 Pain in other specified joint; R41.0 Disorientation, unspecified; R42 Dizziness and giddiness; R06.02 Shortness of breath; R47.81 Slurred speech; R29.810 Facial weakness | CPT/HCPCS: A0425; A0429 ==

== ENCOUNTER 2023-12-11 11:30 | Inpatient (IN) | payer MEDICARE ==
--- NOTE | 2023-12-11 11:45 | ED Physician Documentation ---
History of Present Illness - Stated complaint Stated Complaint: ALOC - History obtained from History obtained from: Patient - Additonal information Additional information: 83-year-old woman presents by ambulance for altered mental status. She has a history of A-fib and hypertension (although she denies any history of A-fib or heart issues). Last known normal was last night and today is confused. Her chief complaint is allover joint pain. Otherwise history is limited because of confusion. I was able to review hospital records from an inpatient stay in July 2022 at which point she was hypoxic with A-fib with RVR and bronchitis. PD PAST MEDICAL HISTORY - Past Medical History Cardiovascular: Hypertension, High cholesterol, Peripheral Vascular Disease, Atrial fibrillation Respiratory: None Neuro: None Endocrine/Autoimmune: None GI: None FIG CAPRIFIER: None : None HEENT: None Psych: Anxiety Musculoskeletal: Other Derm: Other - Past Surgical History Past Surgical History: Yes General: Appendectomy Ortho: Amputation Cardiovascular: Vascular surgery HEENT: Tonsil/Adenoidectomy - Present Medications Home Medications: Ambulatory Orders Medication Instructions Recorded Confirmed Zolpidem Tartrate 10 mg PO QPM PRN 03/19/17 11/17/23 Multivitamin [Daily Multiple 1 tab PO DAILY 12/01/20 11/15/23 Vitamin] Cholecalciferol [Vitamin D3] 25 mcg PO DAILY 08/01/22 11/15/23 Apixaban [Eliquis] 5 mg ORAL BID #60 tab 11/17/23 Aspirin [Aspirin Regimen] 81 mg PO DAILY #30 tab 11/17/23 Levothyroxine [Synthroid] 50 mcg PO QDAC #60 tablet 11/17/23 Metoprolol Succinate [Toprol Xl] 50 mg PO QPM #30 tab 11/17/23 Olmesartan Medoxomil [Benicar] 20 mg PO DAILY #30 tab 11/17/23 Rosuvastatin Calcium [Crestor] 5 mg PO DAILY #30 tab 11/17/23 Triamcinolone 0.5% Cream [Kenalog 1 applic TOP BID #15 gm 11/17/23 0.5% Cream] amLODIPine [Norvasc] 5 mg PO DAILY #30 tab 11/17/23 cloNIDine [Catapres] 0.1 mg PO DAILY #30 tab 11/17/23 oxyCODONE [Roxicodone] 5 mg PO Q6H PRN #20 tablet 11/17/23 - Allergies Allergies/Adverse Reactions: Allergies Allergy/AdvReac Type Severity Reaction Status Date / Time strawberry Allergy Unknown Verified 12/11/23 11:46 venom-honey bee Allergy swelling Verified 12/11/23 11:46 [bee venom (honey bee)] - Social History Does the pt smoke?: No Smoking Status: Never smoker Does the pt drink ETOH?: Yes Does the pt have substance abuse?: No - Immunizations Immunizations are current?: Yes - POLST Patient has POLST: No POLST Status: Full Code PD ED PE NORMAL - Vitals Vital signs reviewed: Yes (She is hypoxic on room air into the mid 80s.) - General General: No acute distress, Other (She is alert and oriented to person and place but not time stating that it is November 2022.) - HEENT HEENT: PERRL, EOMI - Neck Neck: Supple, no meningeal sign, No bony TTP - Cardiac Cardiac: Other (Irregularly irregular) - Respiratory Respiratory: No respiratory distress, Clear bilaterally - Abdomen Abdomen: Normal bowel sounds, Soft, Non tender - Back Back: No CVA TTP, No spinal TTP - Derm Derm: Normal color, Warm and dry - Extremities Extremities: Other (The right leg is swollen. She does state this is chronic and was seen in prior records. Doubt DVT as she is anticoagulated.) - Neuro Neuro: multifocal lens inspector 2-12 intact, No motor deficit, No sensory deficit, Other (She has a left facial droop. She has drift in both arms and legs but it is more due to joint pain seemingly looking symmetric. NIH stroke scale of 3 for orientation and facial droop.) Eye Opening: Spontaneous Motor: Obeys Commands Verbal: Confused GCS Score: 14 - Psych Psych: Normal mood, Normal affect Results - Vitals Vitals: Vital Signs - 24 hr 12/11/23 12/11/23 11:37 11:46 Temperature 36.8 C Heart Rate 113 H Respiratory 20 Rate Blood Pressure 96/63 O2 Saturation 85 L 92 If not protocol 3 : Oxygen Flow, liters/minute Oxygen O2 Source Nasal cannula Oxygen Flow Rate 2 - EKG (time done) 1142 EKG releavant findings:: EKG personally interpreted by author of this note. Relevant findings are: Rate: Rate (enter#) (85) Rhythm: Atrial fibrillation [place]: Normal QRS: Normal Ischemia: Normal ST segments Computer interpretation: Agree with computer - Labs Labs: Laboratory Tests 12/11/23 12/11/23 12/11/23 12:32 12:32 12:32 WBC 6.4 RBC 2.70 L Hgb 7.4 L Hct 24.5 L MCV 90.7 MCH 27.4 MCHC 30.2 L RDW 17.2 H Plt Count 263 MPV 9.6 Neut # (Auto) 4.7 Lymph # (Auto) 0.9 L D[place] # (Auto) 0.6 Eos # (Auto) 0.2 Baso # (Auto) 0.1 Absolute Nucleated RBC 0.00 Nucleated RBC % 0.0 PT 24.4 H INR 2.3 H Sodium 138 Potassium 3.8 Chloride 106 Carbon Dioxide 24 Anion Gap 8.0 BUN 33 H Creatinine 0.9 Estimated GFR (MDRD) 60 L Glucose 91 Lactic Acid Calcium 9.4 Magnesium 1.9 Total Bilirubin 0.6 AST 17 ALT 11 Alkaline Phosphatase 74 B-Natriuretic Peptide Total Protein 6.6 Albumin 3.6 Globulin 3.0 Albumin/Globulin Ratio 1.2 Nasal Adenovirus (PCR) Nasal B. parapertussis DNA (PCR) Nasal Coronavir 229E PCR Nasal Coronavir HKU1 PCR Nasal Coronavir NL63 PCR Nasal Coronavir OC43 PCR Nasal Enterovir/Rhinovir PCR Nasal Influenza B PCR Nasal Influenza A PCR Nasal Parainfluen 1 PCR Nasal Parainfluen 2 PCR Nasal Parainfluen 3 PCR Nasal Parainfluen 4 PCR Nasal RSV (PCR) Nasal B.pertussis DNA PCR Nasal C.pneumoniae (PCR) Tom Human Metapneumo PCR Nasal M.pneumoniae (PCR) Nasal SARS-CoV-2 (PCR) Salicylates < 1.5 Acetaminophen 14.4 Ethyl Alcohol < 10.0 12/11/23 12/11/23 12/11/23 12:32 12:32 12:50 WBC RBC Hgb Hct MCV MCH MCHC RDW Plt Count MPV Neut # (Auto) Lymph # (Auto) Dade # (Auto) Eos # (Auto) Baso # (Auto) Absolute Nucleated RBC Nucleated RBC % PT INR Sodium Potassium Chloride Carbon Dioxide Anion Gap BUN Creatinine Estimated GFR (MDRD) Glucose Lactic Acid 1.3 Calcium Magnesium Total Bilirubin AST ALT Alkaline Phosphatase B-Natriuretic Peptide 845 H Total Protein Albumin Globulin Albumin/Globulin Ratio Nasal Adenovirus (PCR) NOT DETECTED Nasal B. parapertussis DNA (PCR) NOT DETECTED Nasal Coronavir 229E PCR NOT DETECTED Nasal Coronavir HKU1 PCR NOT DETECTED Nasal Coronavir NL63 PCR NOT DETECTED Nasal Coronavir OC43 PCR NOT DETECTED Nasal Enterovir/Rhinovir PCR NOT DETECTED Nasal Influenza B PCR NOT DETECTED Nasal Influenza A PCR NOT DETECTED Nasal Parainfluen 1 PCR NOT DETECTED Nasal Parainfluen 2 PCR NOT DETECTED Nasal Parainfluen 3 PCR NOT DETECTED Nasal Parainfluen 4 PCR NOT DETECTED Nasal RSV (PCR) NOT DETECTED Nasal B.pertussis DNA PCR NOT DETECTED Nasal C.pneumoniae (PCR) NOT DETECTED Tom Human Metapneumo PCR NOT DETECTED Nasal M.pneumoniae (PCR) NOT DETECTED Nasal SARS-CoV-2 (PCR) NOT DETECTED Salicylates Acetaminophen Ethyl Alcohol - Rads (name of study) CT and CTA of the head and neck shows atrophy but no acute disease. She does have a incidental large R pleural effusion. Relevant Findings:: Final report received, Discussed with radkimberly, EMP independent interpretation of test Single view chest x-ray: Cardiomegaly with findings of CHF Relevant Findings:: Final report received, EMP independent interpretation of test PD Medical Decision Making - ED course ED course: This is an 83-year-old woman who presents with altered mental status. Previous chart does mention some memory difficulties but evidently this is worse than normal. She also has an oxygen requirement and the acute of this is not quite clear as she "intermittently" wears oxygen at home. Workup in the emergency department shows that she is in A-fib both clinically and by EKG, she has a chest x-ray demonstrating cardiomegaly with a small left pleural effusion. She did have some physical exam findings concerning for stroke, the acuity of which was not clear and therefore she is not a tPA candidate, also she is on Eliquis. She does have some elements of CHF. Cranial imaging did not demonstrate any obvious stroke. Lab work demonstrates some fairly significant normocytic anemia. She has definitely been anemic in the past, but only down to the 9 range. CMP showing elevated BUN, normal lactate, and elevated BNP, urinalysis, toxicology screens were negative except for oxycodone and Tylenol not toxic level. The oxycodone is not surprising, it is on her med list. She may still have small CVA, And does seem to have worsening of CHF and anemia. Plan to admit for diuresis MRI and follow H/H. Spoke with Dr Mcmillan for admit at 1351. Spoke with daughter By phone, confirms v confused today. Not her usual. Departure - Departure Disposition: 66 [facility] DC/Xfer Clinical Impression: Acute respiratory failure with hypoxia, Swelling of right lower extremity CHF (congestive heart failure) Qualifiers: Heart failure type: unspecified Heart failure chronicity: acute on chronic Qualified Code(s): I50.9 - Heart failure, unspecified Anemia Qualifiers: Anemia type: unspecified type Qualified Code(s): D64.9 - Anemia, unspecified AMS (altered mental status) Qualifiers: Altered mental status type: unspecified Qualified Code(s): R41.82 - Altered mental status, unspecified Afib Qualifiers: Atrial fibrillation type: unspecified Qualified Code(s): I48.91 - Unspecified atrial fibrillation Condition: Serious Discharge Date/Time: 12/11/23 15:47
[2023-12-11] MEDS ORDERED: iohexoL-300 100 ML VIAL ONE (11:48)
--- NOTE | 2023-12-11 12:27 | CT Report ---
PROCEDURE: Head W/O Stroke Protocol INDICATIONS: poss cva TECHNIQUE: Noncontrast 4.5 mm thick angled axial sections acquired from the foramen magnum to the vertex, with c oronal reformats. For radiation dose reduction, the following was used: automated exposure control, adjustment of mA and/or kV according to patient size. COMPARISON: 09/14/2013. Correlation is made with the accompanying imaging. FINDINGS: Image quality: Excellent. CSF spaces: Basal cisterns are patent. No extra-axial fluid collections. The ventricles demonstrate symmetric prominence. However, the degree of reticular prominence is not disproportionate to the deg ree of sulcal atrophy. Brain: No midline shift. No intracranial masses or hemorrhage. James-white matter interface is norm al. Age-appropriate brain parenchymal volume loss and chronic small vessel ischemic change can be se en. Skull and face: Calvarium and visualized facial bones are intact, without suspicious lesions. Sinuses: Visualized sinuses and mastoids are clear. IMPRESSION: No intracranial hemorrhage is seen. No significant intracranial abnormality is seen. If there is strong clinical concern for a stroke, please consider a dedicated brain MRI for further e valuation (assuming that there is no contraindication to MRI). Age-appropriate brain parenchymal volume loss and chronic small vessel ischemic change can be seen. A ssociated prominent ventricles can be seen. Note: Case discussed by telephone with Dr. Corley at 12:24 PM [place] time on 12/11/2023. This study fulfills neurological imaging criteria for inclusion or exclusion of acute stroke therapie s based on available published neurological imaging guidelines. Reviewed by: Julito Chavez MD on 12/11/2023 11:26 AM KRISTI Approved by: Julito Chavez MD on 12/11/2023 11:26 AM KRISTI Station ID: [id number]
--- NOTE | 2023-12-11 12:31 | CT Report ---
PROCEDURE: Angio Head/Neck INDICATIONS: poss cva TECHNIQUE: After the administration of intravenous contrast, 1 mm thick sections acquired from the aortic arch t hrough the [place] of [place]. 3-dimensional anhbtum-zspdfdohd-aiyotndwxo (MIP) and/or volume renderin g reformats were acquired of the central intracranial vasculature and neck separately. For radiation dose reduction, the following was used: automated exposure control, adjustment of mA and/or kV acco rding to patient size. CONTRAST: 80ml omni 300 COMPARISON: None. FINDINGS: Image quality: Diagnostic. HEAD CT: CSF Spaces: Basal cisterns are patent. No extra-axial fluid collections. The ventricles are promine nt, yet the degree of ventricular prominence is not disproportionate to the degree of sulcal atrophy. Brain: No significant abnormality is seen for scanning technique. Age-appropriate brain parenchymal volume loss and chronic small vessel ischemic change can be seen. Skull and face: Calvarium and visualized facial bones appear intact, without suspicious lesions. Sinuses: Visualized sinuses and mastoids are clear. HEAD CT ANGIOGRAPHY: Anterior circulation: The internal carotid arteries demonstrate atherosclerotic calcification, with up to 50% narrowing on each side Note is made of a hypoplastic right A1 segment, with a correspondingly robust left A1 segment. 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 The flow within the paired an terior cerebral arteries is otherwise normal and symmetric. The flow within the middle cerebral korey jarrett is normal and symmetric. The anterior communicating artery is seen. No stenoses, occlusions, o r aneurysms. Posterior circulation: Visualized portions of the vertebral arteries demonstrate normal caliber, and join to form a normal appearing basilar artery. Flow within the posterior cerebral arteries is norm al and symmetric. No aneurysms are seen. NECK CT ANGIOGRAPHY: Carotid system: Incidental note is made of a common trunk off of the aorta of the right brachiocepha lic artery and the left common carotid artery (bovine type aortic arch). This is considered to be a d evelopmental variant of typically no clinical consequence. The origins of the common carotid arteri es appear patent. The common carotid arteries demonstrate normal caliber and courses. The bifurcati on regions demonstrate atherosclerotic irregularity, with 30% narrowing seen on the left and 20% narr owing on the right. The internal carotid arteries demonstrate normal caliber, although they are tortu ous. Posterior circulation: The origins of the vertebral arteries both appear widely patent. The more bruno perior extracranial portions of both vertebral arteries also demonstrate normal courses and calibers. The right vertebral artery is dominant to the left. Soft tissues: Visualized neck soft tissues demonstrate no suspicious abnormalities. A moderate to l arge right-sided pleural effusion can be seen. Sternotomy changes are noted. In this patient with this given history, scrutiny is given to the course of the left facial nerve, in cluding within the left parotid gland. No significant abnormalities can be seen to explain the left-s ided facial droop. No masses or abnormal enhancement can be seen. Bones: No suspicious bony lesions. Visualized cervical spine appears normally aligned. IMPRESSION: No significant intracranial arterial abnormality is seen. No significant abnormality is seen within the arteries of the neck. Note is made of a moderate to large right-sided pleural effusion. 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 Corley at 12:24 PM [place] time on 12/11/2023. The estimate of stenosis included in the report of the imaging study was calculated using the NASCET method Reviewed by: Julito Chavez MD on 12/11/2023 11:30 AM KRISTI Approved by: Julito Chavez MD on 12/11/2023 11:30 AM KRISTI Station ID: [id number]
[2023-12-11 12:37] LABS: BASOPHILS # (AUTO) 0.1 10^3/uL (0.0-0.1); BASOPHILS % (AUTO) 0.9 %; EOSINOPHILS # (AUTO) 0.2 10^3/uL (0.0-0.7); EOSINOPHILS % (AUTO) 3.6 %; HCT - HEMATOCRIT 24.5 % (37.0-47.0); HGB - HEMOGLOBIN 7.4 g/dL (12.0-16.0); LYMPHOCYTES # (AUTO) 0.9 10^3/uL (1.5-3.5); LYMPHOCYTES % (AUTO) 13.2 %; MEAN CORPUSCULAR HEMOGLOBIN 27.4 pg (27.0-31.0); MEAN CORPUSCULAR HGB CONC 30.2 g/dL (32.0-36.0); MEAN CORPUSCULAR VOLUME 90.7 fL (81.0-99.0); MEAN PLATELET VOLUME 9.6 fL (7.9-10.8); MONOCYTES # (AUTO) 0.6 10^3/uL (0.0-1.0); MONOCYTES % (AUTO) 9.7 %; NEUTROPHILS # (AUTO) 4.7 10^3/uL (1.5-6.6); NEUTROPHILS % (AUTO) 72.4 %; PLT - PLATELET COUNT 263 10^3/uL (130-450); RED CELL DISTRIBUTION WIDTH 17.2 % (12.0-15.0); WHITE BLOOD COUNT 6.4 x10^3/uL (4.8-10.8)
[2023-12-11 12:43] LABS: INR 2.3 (0.8-1.2); PT - PROTHROMBIN TIME 24.4 secs (9.9-12.6)
[2023-12-11 12:51] LABS: ACETAMINOPHEN 14.4 ug/mL; ALBUMIN 3.6 g/dL (3.2-5.5); ALBUMIN/GLOBULIN RATIO 1.2 (1.0-2.2); ALKALINE PHOSPHATASE 74 IU/L (42-121); ALT ALANINE AMINOTRANSFERASE 11 IU/L (10-60); AST ASPARTATE AMINOTRANSFERASE 17 IU/L (10-42); BILIRUBIN,TOTAL 0.6 mg/dL (0.2-1.0); BUN - BLOOD UREA NITROGEN 33 mg/dL (6-20); CALCIUM 9.4 mg/dL (8.5-10.3); CARBON DIOXIDE - CO2 24 mmol/L (21-32); CHLORIDE 106 mmol/L (101-111); CREATININE 0.9 mg/dL (0.6-1.3); ETOH - ETHANOL < 10.0 mg/dL; GFR - MDRD 60 (>89); GLUCOSE 91 mg/dL (74-104); MAGNESIUM 1.9 mg/dL (1.7-2.3); POTASSIUM 3.8 mmol/L (3.5-4.5); SODIUM 138 mmol/L (135-145); TOTAL PROTEIN 6.6 g/dL (6.4-8.9)
[2023-12-11 12:53] LABS: SALICYLATE < 1.5 mg/dL
--- NOTE | 2023-12-11 13:06 | XRAY Report ---
PROCEDURE: Chest 1V INDICATIONS: hypoxemia TECHNIQUE: One view of the chest was acquired. COMPARISON: 11/07/2023, 08/01/2022 FINDINGS: Surgical changes and devices: None. Lungs and pleura: There is blunting of the right costophrenic angle. Mild generalized interstitial p rominence can be seen. On this semiupright study, no large pneumothorax can be seen. Mediastinum: The aorta is prominent and tortuous. The cardiac contours are within mildly enlarged. Bones and chest wall: No suspicious bony lesions. Age-appropriate degenerative changes are seen. O verlying soft tissues appear unremarkable. IMPRESSION: Cardiomegaly with generalized interstitial prominence and a small left-sided pleural effusion. These findings are attributed to CHF and are worse than on 11/07/2023. Reviewed by: Julito Chavez MD on 12/11/2023 12:04 PM KRISTI Approved by: Julito Chavez MD on 12/11/2023 12:04 PM KRISTI Station ID: [id number]
[2023-12-11] MEDS: iohexoL-300 100 ML VIAL IVP ONE (13:52)
[2023-12-11] MEDS ORDERED: ONDANSETRON 4 MG/2 ML VIAL IVP PRN (14:03)
[2023-12-11] MEDS ORDERED: ONDANSETRON ODT 4 MG TABLET TL PRN (14:03)
[2023-12-11] MEDS ORDERED: SODIUM CHLORIDE FLUSH 0.9% 10 ML SYRINGE IVP PRN (14:03)
[2023-12-11] MEDS ORDERED: ACETAMINOPHEN 325 MG TABLET PO PRN (14:03)
--- NOTE | 2023-12-11 14:07 | HISTORY & PHYSICAL EXAMINATION ---
Chief Complaint - Chief Complaint Chief Complaint: confused, left facial droop, SOB History of Present Illness - Admitted From Admitted From:: ED, came from [facility] - History Obtained From Records Reviewed: Yes History obtained from: ED provider, patient and two daughters Exam Limitations: No - History of Present Illness HPI Comment/Other: An 83yo F with hx of HTN, Afib on eliquis, Skin cancer (off immunotherapy for 3 months), Drug induced hypothyrodism, chronic anemia, PAD brought in from [facility] For altered mental status in the morning. Also was concern of mild left facial droop, Per patient daughter that patient had similar altered mental status 1 week ago was considered as a delirium, which was resolved in a short period of time.At time of admission, patient mental status is back to her baseline, she reports she feels weak and shortness of breath, most significant is all her joint are painful, it took her 50 minutes in the morning to get up from her bed. Patient reports leg swelling, however it has improved from previous Skin cancer, cellulitis and PAD treatment.Patient shortness of breath is related to exertion, Denies paroxysmal nocturnal dyspnea, can Lay flat to sleep at night. joint pain are persistent more severe in the morning along with some stiffness. No fever or chills, no cough no runny nose, no dysuria or urgency frequency.Recently she was advised to increase her synthroid dose from 50mcg to 75mcg. In the ED, patient was noted hypoxia with oxygen saturation of 80s on room air, other vitals were stable. Labs significant with hemoglobin 7.4. BNP 845. CT had and CTA head and neck Has no acute intracranial pathology noted. Chest x- ray showed right pleural effusion. Patient was given oxygen treatment in the ED admitted to [facility] for further workup and treatment. History - Past Medical History Cardiovascular: reports: Hypertension, High cholesterol, Peripheral Vascular Disease, Atrial fibrillation Respiratory: reports: None Neuro: reports: None Endocrine/Autoimmune: reports: None GI: reports: None SERVICE DISMANTLER: reports: None : reports: None HEENT: reports: None Psych: reports: Anxiety Musculoskeletal: reports: Other Derm: reports: Other MRSA Hx?: No - Past Surgical History General: reports: Appendectomy Ortho: reports: Amputation Cardiovascular: reports: Vascular surgery HEENT: reports: Tonsil/Adenoidectomy - Family & Social History Family History Comment/Other: Mother of stroke. Had osteoporosis. Dad with complications of diabetes. No siblings. 3 kids healthy. [place] Living Situation: Alone Social History Notes: 1 to 2 glasses of wine a week with dinner. No history of smoking. of Alzheimer's/Parkinson's 5 years ago. She moved to apartment near [facility]. Very independent but daughter goes by daily to make sure she's ok. - Substance History Use: Uses substance without health or social issues: Alcohol (1-2 glasses of wine a week with dinner) - POLST Patient has POLST: No POLST Status: Full Code Meds/Allgy - Home Medications Home Medications: Ambulatory Orders Medication Instructions Recorded Confirmed Zolpidem Tartrate 10 mg PO QPM PRN 03/19/17 11/17/23 Multivitamin [Daily Multiple 1 tab PO DAILY 12/01/20 11/15/23 Vitamin] Cholecalciferol [Vitamin D3] 25 mcg PO DAILY 08/01/22 11/15/23 Apixaban [Eliquis] 5 mg ORAL BID #60 tab 11/17/23 Aspirin [Aspirin Regimen] 81 mg PO DAILY #30 tab 11/17/23 Levothyroxine [Synthroid] 50 mcg PO QDAC #60 tablet 11/17/23 Metoprolol Succinate [Toprol Xl] 50 mg PO QPM #30 tab 11/17/23 Olmesartan Medoxomil [Benicar] 20 mg PO DAILY #30 tab 11/17/23 Rosuvastatin Calcium [Crestor] 5 mg PO DAILY #30 tab 11/17/23 Triamcinolone 0.5% Cream [Kenalog 1 applic TOP BID #15 gm 11/17/23 0.5% Cream] amLODIPine [Norvasc] 5 mg PO DAILY #30 tab 11/17/23 cloNIDine [Catapres] 0.1 mg PO DAILY #30 tab 11/17/23 oxyCODONE [Roxicodone] 5 mg PO Q6H PRN #20 tablet 11/17/23 - Allergies Allergies/Adverse Reactions: Allergies Allergy/AdvReac Type Severity Reaction Status Date / Time strawberry Allergy Unknown Verified 12/11/23 11:46 venom-honey bee Allergy swelling Verified 12/11/23 11:46 [bee venom (honey bee)] Review of Systems - Constitutional Constitutional: reports: Fatigue, Weakness, Other (Joint pain all over her body) - Eyes Eyes: denies: Blurred vision, Vision loss - Ears, Nose & Throat Ears, Nose & Throat: denies: Nasal obstruction, Sore throat - Cardiovascular Cariovascular: reports: Irregular heart rate, Edema, Exertional dyspnea. denies: Palpitations, Chest pain - Respiratory Respiratory: denies: Cough, Wheezing - Gastrointestinal Gastrointestinal: denies: Abdominal pain, Nausea, Vomiting - Genitourinary Genitourinary: denies: Dysuria, Frequency, Urgency - Musculoskeletal Musculoskeletal: reports: Stiffness, Joint pain - Neurological Neurological: reports: General weakness. denies: Focal weakness - Endocrine Endocrine: reports: Intolerance to cold - Hematologic/Lymphatic Hematologic/Lymphatic: reports: Anemia. denies: Bruising, Bleeding tendencies Prior Level of Functionality: ADLs with assist Exam - Vital Signs Vital Signs: Vital Signs x48h Temp Pulse Resp BP Pulse Ox O2 Flow Rate 12/11/23 11:46 92 3 12/11/23 11:37 36.8 C 113 H 20 96/63 85 L - Physical Exam General Appearance: positive: No acute distress, Alert, Anxious Eyes Bilateral: positive: PERRL, EOMI ENT: positive: ENT inspection nml Neck: positive: Nml inspection Respiratory: positive: Chest non-tender, Other (Right lower lobe breathing sound low, other parts lung sounds are clear) Cardiovascular: positive: Irregularly irregular Peripheral Pulses: positive: Other (Right leg edema and chronic hyperpigmentation and hyperkeratosis) Back: positive: Nml inspection Skin: positive: Color nml, Other (Right lower leg with patchy hyper keratosis) Extremities: positive: Other (Moves all extremities) Neurologic/Psychiatric: positive: Oriented x3, CN's nml (2-12) Sepsis Event Note (H) - Evaluation Current Stage of Sepsis: Ruled out Conclusion/Plan - Problem List (1) AMS (altered mental status) Conclusion/Plan: Likely due to delirium At time of admission, patient mental status is back to her baseline per her daughter's Qualifiers: Altered mental status type: unspecified Qualified Code(s): R41.82 - Altered mental status, unspecified (2) Acute respiratory failure with hypoxia Conclusion/Plan: Likely secondary to fluid overload, pleural effusion And anemia Continue oxygen treatment Give Lasix Echocardiogram to check cardiac function Gave 1 unit of blood transfusion today and Lasix afterwards (3) Afib Conclusion/Plan: Rate controlled Continue with metoprolol Continue with Eliquis Qualifiers: Atrial fibrillation type: unspecified Qualified Code(s): I48.91 - Unspecified atrial fibrillation (4) Anemia Conclusion/Plan: Severe anemia, hemoglobin 7.4 Per patient family, patient was told she had anemia, was started on iron pills Check iron level, check folate B12 and reticulocyte count and FOBT Give 1 unit of blood transfusion for symptomatic anemia in The setting of Heart failure And hypoxemic respiratory failure Qualifiers: Anemia type: unspecified type Qualified Code(s): D64.9 - Anemia, unspecified (5) CHF (congestive heart failure) Conclusion/Plan: Dyspnea on exertion, leg swelling BMP 845, chest x-ray showed right pleural effusion Give Lasix Check echo Qualifiers: Heart failure type: unspecified Heart failure chronicity: acute on chronic Qualified Code(s): I50.9 - Heart failure, unspecified (6) Hypothyroidism (acquired) Conclusion/Plan: Patient and family reports that skin cancer immunotherapy drug induced hypothyroidism since September 2023 Synthyroid 50 mcg Check TSH - Lab Results Lab results reviewed: Yes Fish Bones: 12/11/23 12:32 12/11/23 12:32 - Diagnostic Imaging Results Diagnostic Imaging Results: positive: Final report reviewed
[2023-12-11 14:20] LABS: BILIRUBIN,URINE NEGATIVE (NEGATIVE); GLUCOSE, URINE (UA) NEGATIVE (NEGATIVE); KETONES,URINE (UA) NEGATIVE (NEGATIVE); LEUKOCYTE ESTERASE, URINE NEGATIVE (NEGATIVE); NITRITE,URINE NEGATIVE (NEGATIVE); OCCULT BLOOD,URINE NEGATIVE (NEGATIVE); PH,URINE 5.5 PH (5.0-7.5); PROTEIN,URINE NEGATIVE (NEGATIVE); UROBILINOGEN,URINE 0.2 (NORMAL) E.U./dL (NORMAL)
[2023-12-11 14:22] LABS: CLARITY,URINE CLEAR (CLEAR)
[2023-12-11 14:26] LABS: B. PARAPERTUSSIS- RESP PCR PAN NOT DETECTED; B. PERTUSSIS- RESP PCR PANEL NOT DETECTED; C. PNEUMONIAE- RESP PCR PANEL NOT DETECTED; CORONAVIRUS 229E-RESP PCR NOT DETECTED; CORONAVIRUS HKU1-RESP PCR NOT DETECTED; CORONAVIRUS NL63-RESP PCR NOT DETECTED; CORONAVIRUS OC43-RESP PCR NOT DETECTED; HUMAN METAPNEUMOVIRUS NOT DETECTED; INFLUENZA A- RESP PCR PANEL NOT DETECTED; INFLUENZA B - RESP PCR PANEL NOT DETECTED; M. PNEUMONIAE- RESP PCR PANEL NOT DETECTED; PARAINFLUENZA VIRUS 1 NOT DETECTED; PARAINFLUENZA VIRUS 2 NOT DETECTED; PARAINFLUENZA VIRUS 3 NOT DETECTED; PARAINFLUENZA VIRUS 4 NOT DETECTED; RHINOVIRUS/ENTEROVIRUS NOT DETECTED; RSV- RESP PCR PANEL NOT DETECTED; SARS-CoV-2 -RESP PCR PANEL NOT DETECTED
[2023-12-11 14:31] LABS: AMPHETAMINE SCREEN,URINE NEGATIVE (NEGATIVE); BARBITURATE SCREEN,UR NEGATIVE (NEGATIVE); BENZODIAZEPINES SCREEN, URINE NEGATIVE (NEGATIVE); BUPRENORPHINE SCREEN, URINE NEGATIVE (NEGATIVE); COCAINE SCREEN URINE NEGATIVE (NEGATIVE); METHADONE SCREEN, URINE NEGATIVE (NEGATIVE); METHAMPHETAMINES SCREEN, URINE NEGATIVE (NEGATIVE); OPIATE SCREEN, URINE NEGATIVE (NEGATIVE); THC CANNABINOID SCREEN, URINE NEGATIVE (NEGATIVE); TRICYCLIC ANTIDEPRESSANT,URINE NEGATIVE (NEGATIVE)
[2023-12-11 14:32] LABS: OXYCODONE SCREEN, URINE POSITIVE (NEGATIVE)
[2023-12-11] MEDS: SODIUM CHLORIDE FLUSH 0.9% 10 ML SYRINGE IVP SCH (16:37)
[2023-12-11] MEDS: FUROSEMIDE 40 MG/4 ML VIAL IVP STA (16:37)
[2023-12-11] MEDS ORDERED: LEVOTHYROXINE 25 MCG TABLET PO SCH (18:00)
[2023-12-11] MEDS ORDERED: METOPROLOL SUCCINATE 50 MG TABLET PO SCH (19:00)
[2023-12-11] MEDS: ATORVASTATIN 40 MG TABLET PO SCH (21:36)
[2023-12-11] MEDS: METOPROLOL SUCCINATE 50 MG TABLET PO SCH (21:37)
[2023-12-11] MEDS: LEVOTHYROXINE 25 MCG TABLET PO SCH (21:37)
[2023-12-11] MEDS: APIXABAN 5 MG TABLET PO SCH (21:37)
[2023-12-11] MEDS: TRIAMCINOLONE 0.1% CREAM 15 GM TUBE TOP SCH (21:37)
[2023-12-11] MEDS: FUROSEMIDE 20 MG/2 ML VIAL IVP PRN (22:35)
[2023-12-12] MEDS: FUROSEMIDE 20 MG TABLET PO SCH (06:35)
[2023-12-12 06:40] LABS: BASOPHILS # (AUTO) 0.1 10^3/uL (0.0-0.1); BASOPHILS % (AUTO) 0.9 %; EOSINOPHILS # (AUTO) 0.3 10^3/uL (0.0-0.7); EOSINOPHILS % (AUTO) 4.2 %; HCT - HEMATOCRIT 31.7 % (37.0-47.0); LYMPHOCYTES # (AUTO) 0.8 10^3/uL (1.5-3.5); LYMPHOCYTES % (AUTO) 12.2 %; MEAN CORPUSCULAR HEMOGLOBIN 27.7 pg (27.0-31.0); MEAN CORPUSCULAR HGB CONC 31.5 g/dL (32.0-36.0); MEAN CORPUSCULAR VOLUME 87.8 fL (81.0-99.0); MEAN PLATELET VOLUME 9.8 fL (7.9-10.8); MONOCYTES # (AUTO) 0.7 10^3/uL (0.0-1.0); MONOCYTES % (AUTO) 9.4 %; NEUTROPHILS # (AUTO) 5.1 10^3/uL (1.5-6.6); PLT - PLATELET COUNT 272 10^3/uL (130-450); RED BLOOD COUNT 3.61 10^6/uL (4.20-5.40); RED CELL DISTRIBUTION WIDTH 16.3 % (12.0-15.0); WHITE BLOOD COUNT 6.9 x10^3/uL (4.8-10.8)
[2023-12-12 06:56] LABS: CALCIUM 8.9 mg/dL (8.5-10.3); CREATININE 0.7 mg/dL (0.6-1.3); POTASSIUM 3.1 mmol/L (3.5-4.5)
[2023-12-12 07:30] LABS: THYROID STIMULATING HORMONE 79.84 uIU/mL (0.34-5.60)
--- NOTE | 2023-12-12 08:09 | PROVIDER PROGRESS NOTE ---
Assessment/Plan - Problem List (1) AMS (altered mental status) Qualifiers: Altered mental status type: unspecified Qualified Code(s): R41.82 - Altered mental status, unspecified Assessment/Plan: Likely due to delirium Daughter reported patient had confusional episode in the morning again May be related to cognitive function decline (2) Acute respiratory failure with hypoxia Assessment/Plan: Unchanged, still need 3 L of oxygen to keep oxygen saturation over 92% Continue oxygen treatment Continue diuretic, continue control heart rate and arrhythmia (3) Afib Qualifiers: Atrial fibrillation type: unspecified Qualified Code(s): I48.91 - Unspecified atrial fibrillation Assessment/Plan: Rate controlled, continue beta-clem and Eliquis (4) Anemia Qualifiers: Anemia type: unspecified type Qualified Code(s): D64.9 - Anemia, unspeci fied Assessment/Plan: Improved, hemoglobin improved to 10 Monitoring CBC (5) CHF (congestive heart failure) Qualifiers: Heart failure type: unspecified Heart failure chronicity: acute on chronic Qualified Code(s): I50.9 - Heart failure, unspecified Assessment/Plan: Contributing to shortness of breath and hypoxia Continue on diuretic (6) Hypothyroidism (acquired) Assessment/Plan: TSH 7 9 Increase Synthroid to 75 mcg May increase 25 mcg each week, recheck TSH in 4 to 6 weeks Follow-up as outpatient - Current Meds Current Meds: Current Medications Generic Name Dose Route Start Last Admin Trade Name Freq PRN Reason Stop Dose Admin Apixaban 5 mg 12/11/23 21:00 12/11/23 21:37 Apixaban 5 Mg Tablet PO 5 mg BID LENKA Administration Atorvastatin Calcium 20 mg 12/11/23 21:00 12/11/23 21:36 Atorvastatin 40 Mg Tablet PO 20 mg QPM LENKA Administration Furosemide 20 mg 12/11/23 17:19 12/11/23 22:35 Furosemide 20 Mg/2 Ml Vial IVP 12/12/23 17:18 20 mg ONCE PRN Administration Between units Furosemide 20 mg 12/12/23 06:00 12/12/23 06:35 Furosemide 20 Mg Tablet PO 20 mg BIDDIURETIC LENKA Administration Metoprolol Succinate 50 mg 12/11/23 20:00 12/11/23 21:37 Metoprolol Succinate 50 Mg Tablet PO 50 mg DAILY LENKA Administration Sodium Chloride 10 ml 12/11/23 17:00 12/12/23 01:21 Sodium Chloride Flush 0.9% 10 Ml Syringe IVP 10 ml 0100,0900,1700 LENKA Administration Triamcinolone Acetonide 1 applic 12/11/23 21:00 12/11/23 21:37 Triamcinolone 0.1% Cream 15 Gm Tube TOP 1 applic BID LENKA Administration - Lab Result Lab results reviewed: Yes Fish Bone Diagrams: 12/12/23 05:35 12/12/23 05:35 - Additional Planning Condition/Complexity: Improved My Orders: My Active Orders 12/11/23 14:03 Activity Orders [RC] Q2HR IO [RC] IOSHIFT Incentive Spirometry - RT [RC] TID Initiate Bowel Care Protocol [RC] .protocol Initiate Line Care Protocol [RC] QSHIFT Initiate Personal Care Protoco [RC] .protocol Oxygen Therapy [RC] .PRN Vital Signs [RC] 0800,1600,0000 Acetaminophen [Tylenol] 650 mg PO Q4HR PRN HYDROcod/ACETAM 5/325 [Hudgins 5/325] 1 tab PO Q4HR PRN Ondansetron Inj [Zofran Inj] 4 mg IVP Q6HR PRN Ondansetron Odt [Zofran Odt] 4 mg TL Q6HR PRN Sodium Chloride Flush 0.9% [Normal Saline Flush 0.9%] 10 ml IVP PRN PRN Code Status [OTHERS] Routine Condition of Patient [OTHERS] Routine DVT Prophylaxis [OTHERS] Routine 12/11/23 Dinner Regular Diet [DIET] 12/11/23 17:00 Sodium Chloride Flush 0.9% [Normal Saline Flush 0.9%] 10 ml IVP 0100,0900,1700 12/11/23 17:19 Transfuse RBCs Leukoreduced [RC] .ONCE FUROSEMIDE INJ 20mg VIAL [LASIX INJ 20mg VIAL] 20 mg IVP ONCE PRN 12/11/23 17:22 Echo Transthoracic Complete [ECHO] Routine 12/11/23 20:00 Metoprolol Succinate [Toprol Xl] 50 mg PO DAILY 12/11/23 21:00 Apixaban [Eliquis] 5 mg PO BID Atorvastatin [Lipitor] 20 mg PO QPM Triamcinolone 0.1% Cream [Kenalog 0.1% Cream] 1 applic TOP BID 12/12/23 06:00 Furosemide [Lasix] 20 mg PO BIDDIURETIC 12/12/23 08:08 Potassium Chloride [K-Dur] 20 meq PO ONCE ONE 12/12/23 09:00 BNP - B-NATRIURETIC PEPTIDE [CHEM] DAILY RETIC [HEME] DAILY Aspirin EC [Ecotrin] 81 mg PO DAILY Levothyroxine [Synthroid] 75 mcg PO QDAC Potassium Chloride [K-Dur] 20 meq PO BID 12/12/23 11:30 Brain WO [MRI] Routine 12/13/23 05:00 BMP - BASIC METABOLIC PANEL [CHEM] DAILYLAB CBC [CBC - COMP BLD CT W/AUTO DIFF] [HEME] DAILYLAB 12/13/23 09:00 BNP - B-NATRIURETIC PEPTIDE [CHEM] DAILY 12/14/23 05:00 BMP - BASIC METABOLIC PANEL [CHEM] DAILYLAB CBC [CBC - COMP BLD CT W/AUTO DIFF] [HEME] DAILYLAB 12/14/23 09:00 BNP - B-NATRIURETIC PEPTIDE [CHEM] DAILY 12/15/23 05:00 BMP - BASIC METABOLIC PANEL [CHEM] DAILYLAB CBC [CBC - COMP BLD CT W/AUTO DIFF] [HEME] DAILYLAB 12/15/23 09:00 BNP - B-NATRIURETIC PEPTIDE [CHEM] DAILY 12/16/23 05:00 BMP - BASIC METABOLIC PANEL [CHEM] DAILYLAB CBC [CBC - COMP BLD CT W/AUTO DIFF] [HEME] DAILYLAB 12/16/23 09:00 BNP - B-NATRIURETIC PEPTIDE [CHEM] DAILY Plan Discussed with:: Patient Time Spent: 31-60 minutes Additional Planning Notes: If continues stable may be discharged in 1 to 2 days Subjective - Subjective Patient Reports: Feeling Better, No Complaints Objective Vital Signs: Vital Signs - 24 hr 12/11/23 12/11/23 12/11/23 11:37 11:46 15:58 Temperature 36.8 C 36.6 C Heart Rate 113 H Heart Rate [ 72 Monitoring electrodes] Respiratory 20 18 Rate Blood Pressure 96/63 Blood Pressure 140/84 H [Right Brachial artery] O2 Saturation 85 L 92 94 If not protocol 3 : Oxygen Flow, liters/minute 12/11/23 12/11/23 12/11/23 19:00 19:31 19:49 Temperature 36.5 C 36.1 C L Heart Rate Heart Rate [ 69 74 Monitoring electrodes] Respiratory 18 16 Rate Blood Pressure Blood Pressure 123/73 138/80 H [Right Brachial artery] O2 Saturation 94 93 If not protocol 2 : Oxygen Flow, liters/minute 12/11/23 12/12/23 12/12/23 22:33 00:00 01:20 Temperature 36.4 C L 36.5 C Heart Rate Heart Rate [ 71 80 Monitoring electrodes] Respiratory 18 16 22 Rate Blood Pressure Blood Pressure 149/92 H 146/89 H [Right Brachial artery] O2 Saturation 92 92 If not protocol : Oxygen Flow, liters/minute Oxygen O2 Source Nasal cannula Oxygen Flow Rate 2 I&O (Last 24 Hrs): Intake and Output Totals x24h 12/10/23 12/11/23 12/12/23 22:59 23:59 23:59 Intake Total Output Total 1800 Balance -1800 General: Alert, Cooperative HEENT: Atraumatic, PERRLA Neck: Supple Neuro: Alert Cardiovascular: Other (Irregular irregularly) Respiratory: No respiratory distress Abdomen: Soft Rectal: Black Stool Extremities: No clubbing, Other (Right foot chronic skin condition) - Results Results: Laboratory Results WBC 6.9 x10^3/uL (4.8-10.8) 12/12/23 05:35 RBC 3.61 10^6/uL (4.20-5.40) L 12/12/23 05:35 Hgb 10.0 g/dL (12.0-16.0) L 12/12/23 05:35 Hct 31.7 % (37.0-47.0) L 12/12/23 05:35 MCV 87.8 fL (81.0-99.0) 12/12/23 05:35 MCH 27.7 pg (27.0-31.0) 12/12/23 05:35 MCHC 31.5 g/dL (32.0-36.0) L 12/12/23 05:35 RDW 16.3 % (12.0-15.0) H 12/12/23 05:35 Plt Count 272 10^3/uL (130-450) 12/12/23 05:35 MPV 9.8 fL (7.9-10.8) 12/12/23 05:35 Neut # (Auto) 5.1 10^3/uL (1.5-6.6) 12/12/23 05:35 Lymph # (Auto) 0.8 10^3/uL (1.5-3.5) L 12/12/23 05:35 Walton # (Auto) 0.7 10^3/uL (0.0-1.0) 12/12/23 05:35 Eos # (Auto) 0.3 10^3/uL (0.0-0.7) 12/12/23 05:35 Baso # (Auto) 0.1 10^3/uL (0.0-0.1) 12/12/23 05:35 Absolute Nucleated RBC 0.00 x10^3/uL 12/12/23 05:35 Nucleated RBC % 0.0 /100WBC 12/12/23 05:35 PT 24.4 secs (9.9-12.6) H 12/11/23 12:32 INR 2.3 (0.8-1.2) H 12/11/23 12:32 Sodium 138 mmol/L (135-145) 12/12/23 05:35 Potassium 3.1 mmol/L (3.5-4.5) L 12/12/23 05:35 Chloride 104 mmol/L (101-111) 12/12/23 05:35 Carbon Dioxide 25 mmol/L (21-32) 12/12/23 05:35 Anion Gap 9.0 (6-13) 12/12/23 05:35 BUN 25 mg/dL (6-20) H 12/12/23 05:35 Creatinine 0.7 mg/dL (0.6-1.3) 12/12/23 05:35 Estimated GFR (MDRD) 80 (>89) L 12/12/23 05:35 Glucose 85 mg/dL (74-104) 12/12/23 05:35 Lactic Acid 1.3 mmol/L (0.5-2.2) 12/11/23 12:32 Calcium 8.9 mg/dL (8.5-10.3) 12/12/23 05:35 Magnesium 1.9 mg/dL (1.7-2.3) 12/11/23 12:32 Iron 64 ug/dL (50-212) 12/12/23 05:35 TIBC 421 ug/dL (250-450) 12/12/23 05:35 % Saturation 15 % (20-50) L 12/12/23 05:35 Transferrin 301 mg/dL (203-362) 12/12/23 05:35 Total Bilirubin 0.6 mg/dL (0.2-1.0) 12/11/23 12:32 AST 17 IU/L (10-42) 12/11/23 12:32 ALT 11 IU/L (10-60) 12/11/23 12:32 Alkaline Phosphatase 74 IU/L (42-121) 12/11/23 12:32 B-Natriuretic Peptide 845 pg/mL (5-100) H 12/11/23 12:32 Total Protein 6.6 g/dL (6.4-8.9) 12/11/23 12:32 Albumin 3.6 g/dL (3.2-5.5) 12/11/23 12:32 Globulin 3.0 g/dL (2.1-4.2) 12/11/23 12:32 Albumin/Globulin Ratio 1.2 (1.0-2.2) 12/11/23 12:32 Vitamin B12 332 pg/mL (180-914) 12/12/23 05:35 Folate 6.0 ng/mL (5.90 - >24.8) 12/12/23 05:35 TSH 79.84 uIU/mL (0.34-5.60) H 12/12/23 05:35 Urine Color YELLOW 12/11/23 14:08 Urine Clarity CLEAR (CLEAR) 12/11/23 14:08 Urine pH 5.5 PH (5.0-7.5) 12/11/23 14:08 Ur Specific Groom 1.020 (1.002-1.030) 12/11/23 14:08 Urine Protein NEGATIVE mg/dL (NEGATIVE) 12/11/23 14:08 Urine Glucose (UA) NEGATIVE mg/dL (NEGATIVE) 12/11/23 14:08 Urine Ketones NEGATIVE mg/dL (NEGATIVE) 12/11/23 14:08 Urine Occult Blood NEGATIVE (NEGATIVE) 12/11/23 14:08 Urine Nitrite NEGATIVE (NEGATIVE) 12/11/23 14:08 Urine Bilirubin NEGATIVE (NEGATIVE) 12/11/23 14:08 Urine Urobilinogen 0.2 (NORMAL) E.U./dL (NORMAL) 12/11/23 14:08 Ur Leukocyte Esterase NEGATIVE (NEGATIVE) 12/11/23 14:08 Ur Microscopic Review NOT INDICATED 12/11/23 14:08 Urine Culture Comments NOT INDICATED 12/11/23 14:08 Nasal Adenovirus (PCR) NOT DETECTED 12/11/23 12:50 Nasal B. parapertussis DNA (PCR) NOT DETECTED 12/11/23 12:50 Nasal Coronavir 229E PCR NOT DETECTED 12/11/23 12:50 Nasal Coronavir HKU1 PCR NOT DETECTED 12/11/23 12:50 Nasal Coronavir NL63 PCR NOT DETECTED 12/11/23 12:50 Nasal Coronavir OC43 PCR NOT DETECTED 12/11/23 12:50 Nasal Enterovir/Rhinovir PCR NOT DETECTED 12/11/23 12:50 Nasal Influenza B PCR NOT DETECTED 12/11/23 12:50 Nasal Influenza A PCR NOT DETECTED 12/11/23 12:50 Nasal Parainfluen 1 PCR NOT DETECTED 12/11/23 12:50 Nasal Parainfluen 2 PCR NOT DETECTED 12/11/23 12:50 Nasal Parainfluen 3 PCR NOT DETECTED 12/11/23 12:50 Nasal Parainfluen 4 PCR NOT DETECTED 12/11/23 12:50 Nasal RSV (PCR) NOT DETECTED 12/11/23 12:50 Nasal B.pertussis DNA PCR NOT DETECTED 12/11/23 12:50 Nasal C.pneumoniae (PCR) NOT DETECTED 12/11/23 12:50 Tom Human Metapneumo PCR NOT DETECTED 12/11/23 12:50 Nasal M.pneumoniae (PCR) NOT DETECTED 12/11/23 12:50 Nasal SARS-CoV-2 (PCR) NOT DETECTED 12/11/23 12:50 Salicylates < 1.5 mg/dL 12/11/23 12:32 Urine Opiates Screen NEGATIVE (NEGATIVE) 12/11/23 14:08 Ur Buprenorphine Scrn NEGATIVE (NEGATIVE) 12/11/23 14:08 Ur Oxycodone Screen POSITIVE (NEGATIVE) H 12/11/23 14:08 Urine Methadone Screen NEGATIVE (NEGATIVE) 12/11/23 14:08 Acetaminophen 14.4 ug/mL 12/11/23 12:32 Ur Barbiturates Screen NEGATIVE (NEGATIVE) 12/11/23 14:08 Ur Tricyclics Screen NEGATIVE (NEGATIVE) 12/11/23 14:08 Ur Phencyclidine Scrn NEGATIVE (NEGATIVE) 12/11/23 14:08 Ur Amphetamine Screen NEGATIVE (NEGATIVE) 12/11/23 14:08 U Methamphetamines Scrn NEGATIVE (NEGATIVE) 12/11/23 14:08 U Benzodiazepines Scrn NEGATIVE (NEGATIVE) 12/11/23 14:08 Urine Cocaine Screen NEGATIVE (NEGATIVE) 12/11/23 14:08 U Cannabinoids Screen NEGATIVE (NEGATIVE) 12/11/23 14:08 Ur Drug Screen Comment CUTOFF CONC BELOW: 12/11/23 14:08 Ethyl Alcohol < 10.0 mg/dL 12/11/23 12:32 Blood Type A POSITIVE 12/11/23 17:49 Antibody Screen NEGATIVE 12/11/23 17:49 Crossmatch IS Only See Detail 12/11/23 17:49 - Procedures Procedures: Procedures CONTROL BLEEDING IN GASTROINTESTINAL TRACT, ENDO (03/02/17) EXCISION OF ESOPHAGOGASTRIC JUNCTION, ENDO, DIAGN (03/02/17) EXCISION OF SIGMOID COLON, ENDO, DIAGN (03/02/17) EXCISION OF STOMACH, ENDO, DIAGN (03/02/17) EXCISION OF STOMACH, PYLORUS, ENDO, DIAGN (03/02/17) RESECTION OF RECTUM, OPEN APPROACH (03/08/17) RESECTION OF SIGMOID COLON, OPEN APPROACH (03/08/17) Sepsis Event Note (H) - Evaluation Current Stage of Sepsis: Ruled out ABX Reporting Has patient been on IV antibiotics over the past 48 hours?: No Current Medications - Current Medications Current Medications: Active Medications Acetaminophen (Acetaminophen 325 Mg Tablet) 650 mg PO Q4HR PRN PRN Reason: Pain 1 to 4, or Fever Hydrocodone Bitart/Acetaminophen (Hydrocod/Acetam 5/325 Mg Tablet) 1 tab PO Q4HR PRN PRN Reason: Pain 5 to 7 Last Admin: 12/12/23 08:27 Dose: 1 tab Apixaban (Apixaban 5 Mg Tablet) 5 mg PO BID [facility] Last Admin: 12/12/23 21:18 Dose: 5 mg Aspirin (Aspirin Ec 81 Mg Tablet) 81 mg PO DAILY [facility] Last Admin: 12/12/23 08:27 Dose: 81 mg Atorvastatin Calcium (Atorvastatin 40 Mg Tablet) 20 mg PO QPM [facility] Last Admin: 12/12/23 21:18 Dose: 20 mg Cyanocobalamin (Cyanocobalamin 500 Mcg Tablet) 500 mcg PO DAILY [facility] Last Admin: 12/12/23 09:58 Dose: 500 mcg Furosemide (Furosemide 20 Mg Tablet) 20 mg PO BIDDIURETIC [facility] Last Admin: 12/12/23 14:22 Dose: 20 mg Levothyroxine Sodium (Levothyroxine 75 Mcg Tablet) 75 mcg PO QDAC [facility] Metoprolol Succinate (Metoprolol Succinate 50 Mg Tablet) 50 mg PO DAILY [facility] Last Admin: 12/12/23 08:27 Dose: 50 mg Ondansetron HCl (Ondansetron Odt 4 Mg Tablet) 4 mg TL Q6HR PRN PRN Reason: Nausea / Vomiting Ondansetron HCl (Ondansetron 4 Mg/2 Ml Vial) 4 mg IVP Q6HR PRN PRN Reason: Nausea / Vomiting Potassium Chloride (Potassium Chloride 20 Meq Tablet) 20 meq PO BID [facility] Last Admin: 12/12/23 21:18 Dose: 20 meq Multivit/Folic Acid/Iron ( Vitamin Tablet) 1 tab PO DAILYWM [facility] Last Admin: 12/12/23 09:58 Dose: 1 tab Sodium Chloride (Sodium Chloride Flush 0.9% 10 Ml Syringe) 10 ml IVP 0100,0900,1700 [facility] Last Admin: 12/12/23 16:53 Dose: 10 ml Sodium Chloride (Sodium Chloride Flush 0.9% 10 Ml Syringe) 10 ml IVP PRN PRN PRN Reason: NEEDED PER PROVIDER ORDERS Triamcinolone Acetonide (Triamcinolone 0.1% Cream 15 Gm Tube) 1 applic TOP BID [facility] Last Admin: 12/12/23 21:18 Dose: 1 applic Zolpidem Tartrate 10 mg PO QPM PRN 03/19/17 Multivitamin [Daily Multiple Vitamin] 1 tab PO DAILY 12/01/20 Cholecalciferol [Vitamin D3] 25 mcg PO DAILY 08/01/22
[2023-12-12] MEDS: HYDROcod/ACETAM 5/325 MG TABLET PO PRN (08:27)
[2023-12-12] MEDS: ASPIRIN EC 81 MG TABLET PO SCH (08:27)
[2023-12-12] MEDS: POTASSIUM CHLORIDE 20 MEQ TABLET PO ONE (08:27)
[2023-12-12] MEDS: LEVOTHYROXINE 25 MCG TABLET PO ONE (08:32)
[2023-12-12] MEDS: POTASSIUM CHLORIDE 20 MEQ TABLET PO SCH ×2 (08:34→17:02)
[2023-12-12 08:59] LABS: ABSOLUTE RETICS # AUTO 0.115 10^6/uL (0.020-0.110); RED BLOOD COUNT 3.65 10^6/uL (4.20-5.40); RETICULOCYTE COUNT % (AUTO) 3.14 % (0.5-2.3)
[2023-12-12] MEDS: CYANOCOBALAMIN 500 MCG TABLET PO SCH (09:58)
[2023-12-12] MEDS: PRENATAL VITAMIN TABLET PO SCH (09:58)
--- NOTE | 2023-12-12 14:30 | MRI Report ---
PROCEDURE: Brain WO INDICATIONS: rule out CVA TECHNIQUE: Noncontrast axial T1 spin echo, axial T2 fast spin echo, sagittal and axial FLAIR, coronal T2 fast sp in echo, axial gradient echo, axial diffusion and ADC through the brain. COMPARISON: CT head 12/11/2023. FINDINGS: Image quality: Excellent. CSF Spaces: Basal cisterns are patent. No extra-axial fluid collections. Ventricles are normal in size and shape. Brain: No intracranial masses or hemorrhage. James/white matter interface is normal. Age-related cele bal volume loss and chronic microvascular ischemic changes are present. Brainstem appears normal. D iffusion-weighted images demonstrate no acute ischemic insult. No chronic ischemic insults. Normal intravascular flow voids are present. Skull and face: Calvarium has normal marrow signal. Bilateral lens replacements. The orbits are oth erwise normal in appearance. Sinuses: Small maxillary sinus mucous retention cyst. Sinuses and mastoids are otherwise clear. IMPRESSION: 1.No acute or subacute infarct. No acute intracranial abnormalities. 2.Age-related global volume loss and chronic microvascular ischemic changes. Reviewed by: Nickolas Lester MD on 12/12/2023 2:29 PM PDT Approved by: Nickolas Lester MD on 12/12/2023 2:29 PM PDT Station ID: [id number]
--- NOTE | 2023-12-12 15:00 | PHARMACY PROGRESS NOTE ---
- Best Possible Medication History Admit Date and Time: 12/11/23 1403 Processed by: Pharmacy Medications reviewed in ED?: Yes Medication History completed: Yes Patient Interview: Pt unable to participate Secondary Source(s): Pharmacy records, Insurance records As the person ultimately responsible for medication therapy, providers are able to order a medication from an existing home medication list in [facility] via the "Reconcile Routine" prior to Confirmation of that medication by product support sales representative. Such practice is discouraged except when the physician, in their clinical judgment, deems that a medical need exists for a medication without regard to previous use.
[2023-12-13 05:41] LABS: BASOPHILS # (AUTO) 0.1 10^3/uL (0.0-0.1); BASOPHILS % (AUTO) 0.9 %; EOSINOPHILS # (AUTO) 0.3 10^3/uL (0.0-0.7); EOSINOPHILS % (AUTO) 4.6 %; HCT - HEMATOCRIT 32.4 % (37.0-47.0); LYMPHOCYTES # (AUTO) 1.1 10^3/uL (1.5-3.5); LYMPHOCYTES % (AUTO) 15.9 %; MEAN CORPUSCULAR HEMOGLOBIN 27.5 pg (27.0-31.0); MEAN CORPUSCULAR HGB CONC 30.9 g/dL (32.0-36.0); MEAN CORPUSCULAR VOLUME 89.3 fL (81.0-99.0); MEAN PLATELET VOLUME 9.5 fL (7.9-10.8); MONOCYTES # (AUTO) 0.7 10^3/uL (0.0-1.0); MONOCYTES % (AUTO) 10.3 %; NEUTROPHILS # (AUTO) 4.6 10^3/uL (1.5-6.6); PLT - PLATELET COUNT 284 10^3/uL (130-450); RED BLOOD COUNT 3.63 10^6/uL (4.20-5.40); RED CELL DISTRIBUTION WIDTH 16.7 % (12.0-15.0); WHITE BLOOD COUNT 6.8 x10^3/uL (4.8-10.8)
[2023-12-13 05:51] LABS: CALCIUM 9.1 mg/dL (8.5-10.3); CREATININE 0.7 mg/dL (0.6-1.3); POTASSIUM 3.7 mmol/L (3.5-4.5)
[2023-12-13] MEDS: LEVOTHYROXINE 75 MCG TABLET PO SCH (06:34)
--- NOTE | 2023-12-13 13:36 | DISCHARGE SUMMARY ---
Discharge Summary Discharge Date: 12/13/23 Discharging Provider: Zulma Almeida MD Primary Care Provider: Andre Spring MD Code Status: Attempt Resuscitation Condition at Discharge: Serious Discharge Disposition: 01 Home, Self Care - DIAGNOSES Discharge Diagnoses with Status of Each Condition: 1. Altered mental status most likely due to delirium 2. Acute respiratory failure with hypoxia 3. Chronic atrial fibrillation, rate controlled 4. Chronic anemia with normal B12 and low normal folate, normal iron 5. Acute on chronic congestive heart failure 6. Pleural effusion unknown etiology 7. Hypothyroidism 8. 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 Also was concern of mild left facial droop, Per patient daughter that patient had similar altered mental status 1 week ago was considered as a delirium, which was resolved in a short period of time.At time of admission, patient mental status is back to her baseline, she reports she feels weak and shortness of breath, most significant is all her joint are painful, it took her 50 minutes in the morning to get up from her bed. Patient reports leg swelling, however it has improved from previous Skin cancer, cellulitis and PAD treatment.Patient shortness of breath is related to exertion, Denies paroxysmal nocturnal dyspnea, can Lay flat to sleep at night. joint pain are persistent more severe in the morning along with some stiffness. No fever or chills, no cough no runny nose, no dysuria or urgency frequency.Recently she was advised to increase her synthroid dose from 50mcg to 75mcg. In the ED, patient was noted hypoxia with oxygen saturation of 80s on room air, other vitals were stable. Labs significant with hemoglobin 7.4. BNP 845. CT had and CTA head and neck Has no acute intracranial pathology noted. Chest x- ray showed right pleural effusion. Patient was given oxygen treatment in the ED admitted to [facility] for further workup and treatment. - Past Medical History Cardiovascular: reports: Hypertension, High cholesterol, Peripheral Vascular Disease, Atrial fibrillation - ALLERGIES Allergies/Adverse Reactions: Allergies Allergy/AdvReac Type Severity Reaction Status Date / Time strawberry Allergy Unknown Verified 12/11/23 11:46 venom-honey bee Allergy swelling Verified 12/11/23 11:46 [bee venom (honey bee)] - MEDICATIONS Home Medications: Ambulatory Orders Medication Instructions Recorded Confirmed Zolpidem Tartrate 10 mg PO QPM PRN 03/19/17 12/12/23 Triamcinolone 0.5% Cream [Kenalog 1 applic TOP BID #15 gm 11/17/23 12/12/23 0.5% Cream] oxyCODONE [Roxicodone] 5 mg PO Q6H PRN #20 tablet 11/17/23 12/12/23 Apixaban [Eliquis] 5 mg ORAL BID #60 tab 12/13/23 12/12/23 Aspirin [Aspirin Regimen] 81 mg PO DAILY #30 tab 12/13/23 12/12/23 Cholecalciferol [Vitamin D3] 25 mcg PO DAILY #0 12/13/23 12/12/23 Cyanocobalamin (Vitamin B-12) 500 mcg PO DAILY #30 tab 12/13/23 [Vitamin B12] Levothyroxine Sodium [Synthroid] 75 mcg PO DAILY #30 tablet 12/13/23 Metoprolol Succinate [Toprol Xl] 50 mg PO QPM #30 tab 12/13/23 12/12/23 Olmesartan Medoxomil [Benicar] 20 mg PO DAILY #30 tab 12/13/23 12/12/23 Vit No.170/Iron/Folic 1 each PO DAILY #30 tablet 12/13/23 [Dermacinrx Prenatrix Caplet] Rosuvastatin Calcium [Crestor] 5 mg PO DAILY #30 tab 12/13/23 12/12/23 amLODIPine [Norvasc] 5 mg PO DAILY #30 tab 12/13/23 12/12/23 cloNIDine [Catapres] 0.1 mg PO DAILY #30 tab 12/13/23 12/12/23 - LABS Result Diagrams: 12/13/23 05:23 12/13/23 05:23 - SEPSIS Current Stage of Sepsis: Ruled out
--- NOTE | 2023-12-13 13:37 | Discharge Plan ---
"Discharge Plan for SNF / [facility] - Discharge Plan And Transition Orders Problem Reviewed?: Yes Disposition: 01 Home, Self Care Condition: Serious Allergies and Adverse Reactions: Allergies Allergy/AdvReac Type Severity Reaction Status Date / Time strawberry Allergy Unknown Verified 12/11/23 11:46 venom-honey bee Allergy swelling Verified 12/11/23 11:46 [bee venom (honey bee)] Health Concerns: An 83yo F with hx of HTN, Afib on eliquis, Skin cancer (off immunotherapy for 3 months), Drug induced hypothyrodism, chronic anemia, PAD brought in from [facility] For altered mental status in the morning. Also was concern of mild left facial droop, Per patient daughter that patient had similar altered mental status 1 week ago was considered as a delirium, which was resolved in a short period of time.At time of admission, patient mental status is back to her baseline, she reports she feels weak and shortness of breath, most significant is all her joint are painful, it took her 50 minutes in the morning to get up from her bed. Patient reports leg swelling, however it has improved from previous Skin cancer, cellulitis and PAD treatment.Patient shortness of breath is related to exertion, Denies paroxysmal nocturnal dyspnea, can Lay flat to sleep at night. joint pain are persistent more severe in the morning along with some stiffness. No fever or chills, no cough no runny nose, no dysuria or urgency frequency.Recently she was advised to increase her synthroid dose from 50mcg to 75mcg. In the ED, patient was noted hypoxia with oxygen saturation of 80s on room air, other vitals were stable. Labs significant with hemoglobin 7.4. BNP 845. CT had and CTA head and neck Has no acute intracranial pathology noted. Chest x- ray showed right pleural effusion. Patient was given oxygen treatment in the ED admitted to [facility] for further workup and treatment. - Past Medical History Cardiovascular: reports: Hypertension, High cholesterol, Peripheral Vascular Disease, Atrial fibrillation A stroke workup ensued for her altered mental status but no new findings were found. She has anemia and no EGD or colonoscopy was done but she was transfused 1 unit. She received IV diuresis for possible mild fluid overload. She is still hypoxic, and she does have a large to moderate right-sided pleural effusion which is being treated with a diuretic. She is felt to have mild acute on chronic congestive heart failure. Her last echocardiogram was done in March 2017. She had a normal ejection fraction of 60 to 65%. Impaired relaxation consistent with grade 1 diastolic dysfunction. Right ventricle was normal in size and function. No significant valvular heart disease. 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 A PET scan done in June 2023 is notable for bilateral inguinal adenopathy concerning for metastatic disease. Keytruda was held because of ongoing symptoms of thyroid. 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 She also has a history of early low-grade colon cancer of the rect osigmoid that was resected in 2017. Again now with lymphadenopathy of unclear etiology. The patient has already been seen as an informational visit for hospice on November 15, 2023. They then went to see the patient in person at the retirement. The patient was seen with her daughter Aria. At that point in time the family opted to decline going into hospice. They really wanted the patient to complete rehab to see how she did from a functional perspective. Plan of Treatment: Workup has been relatively minimal on this celeste elderly woman. At this time we feel that with her age, and multiple comorbid conditions, that an aggressive workup for pleural effusion with thoracentesis, repeat cardiac evaluation, all may not be needed in the face of a gentle deterioration due to cancer. She is to return to rehab with a stated goal of returning to home and possible resumption of therapy for her cancers according to what oncology will do with her. While here her TSH is 79.84. At the residential [facility] she is on 50 mcg of Synthroid. That dose was given to her in September 2023 by her oncologist. He wanted to recheck her TSH and free T4 before her next visit. From his note, it is not clear when they expected to see the patient again. I will be increasing her Synthroid to 75 mcg daily and she will need a repeat TSH and free T4 in 4 to 6 weeks with Synthroid adjusted at that time again. While here, lab work showed low folate. As such she has been given a vitamin, and p.o. vitamin B12. Care Goals: I would recommend that her primary care provider or the residential facility physician have a conversation with the patient and her family regarding care goals. Is this patient wishing to move forward with all aggressive care? Issue to be resuming therapy with Keytruda? A follow-up visit was not scheduled from her last visit in September 2023. That should be made clear. With this hospitalization, there was no discussion with the hospitalist who was on service at this time. The patient has altered mental status may be due to UTI, and hypothyroidism. Assessment: Celeste, cooperative female who is alert to person, place, but not time or situation - SNF / [facility]ENT[facility] Transition Orders Admit to (Facility): Patient seen Under the care of (Name): Andre Roy Discharge Diagnosis: 1. Altered mental status most likely due to delirium 2. Acute respiratory failure with hypoxia 3. Chronic atrial fibrillation, rate controlled 4. Chronic anemia with normal B12 and low normal folate, normal iron 5. Acute on chronic congestive heart failure 6. Pleural effusion unknown etiology 7. Hypothyroidism 8. 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 Notify PCP of admission and forward orders to primary provider for signature. Other Notification Orders: Call PCP immediately if patient develops dyspnea, chest pain/tightness or edema. House Bowel Program: Yes Additional Bowel Program Orders: If no BM after 2 days, nurse may give M.O.M. 30ml PO PRN and/or ducolax Supp 1 VT and/or VIKI 250mg P.O., and/or senna 1-2 tabs PO. On day 3 nurse may give repeat above order until residents constipation is resolved. Annual Influenza Vaccine (between Jun 03 and December 31): Yes Two-step PPD per [facility] [phone] or approved exception documents: Yes Oxygen Orders: 3 liters NC for goal of 02 sat >90% Medication Orders: PLEASE REFER TO THE DISCHARGE MEDICATION LIST. Insulin Orders?: No - Diet Type: Geriatric Texture: Regular Liquids: Thin May have monthly special meal: Yes - Therapies | Activity Therapy: Evaluation | Treat if indicated: PT, OT Rehabilitation Potential: Return to independent living Activity: Activity as Tolerated Weight Bearing: Full Weight Assistance Devices: Walker"
--- NOTE | 2023-12-13 15:44 | ADVANCE CARE PLANNING NOTE ---
Advance Care Planning - Planning Encounter Date: 12/13/23 Time: 15:41 Purpose: establish care goals Parties in Attendance: patient and hospitalist. daughter Aria was on the phone later and daughter Delaney on separate phone conversation Decisional Capacity of the Patient: she is fatigued, aches all over, slow psychomotor response due to a TSH of 79 - Diagnosis for Encounter (1) Acute respiratory failure with hypoxia Summary: The patient has been living in a longterm facility due to falls. She is only been there about 3 weeks. She has been working with physical therapy but having intermittent hypoxia. She is not hypoxic requiring 2 to 3 L of oxygen for a right pleural effusion. She also has a TSH of 79 on Synthroid 50 mcg. She is supposed to be on 100 mcg per the daughter. She has anemia. 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 It had been going on for 3 years. It was found to be squamous cell. She started having therapy with Keytruda and did well with resolution of the ulcer and healing. 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 Immunotherapy was discontinued in September 2023. At that time a PET scan showed her to have nonspecific adenopathy of the groin. It was postulated that she had either spread of her squamous cell cancer or recurrence of her history of colon cancer. During this time the patient was living in her own apartment. But she was failing in her apartment and getting weaker. She began having increasing joint pain. She went to the emergency room November 15. Hospice did an informational visit for her in the emergency room. She stayed in the emergency room a couple of days getting hydrated and getting IV Dilaudid for pain. She was then transferred to the longterm facility November 17. She has been at the longterm facility and the goal is for her to get strong enough to return to her apartment. While at the longterm facility she was seen by hospice to see if she wanted to enter into the program. However Aria says they declined going into hospice because that would mean giving up the Medicare benefit for the longterm facility rehab. The patient would have to go home and there were no caregivers at home. Hospice would be able to help take care of her but not physically do the hard work of day-to-day pain management, hygiene care, feeding her, changing her, etc. [place] 2 [place] [phone][place] And [place] Zofia Alvarado is the DPOA and POA. Her number is [phone]. As such the family declined going into hospice for the patient. The patient confirms this. The patient also confirms that she does not want any further treatment. I discussed the fact that she has a pleural effusion and this could be metastatic disease. It is causing her to need oxygen. But she does not want a thoracentesis or biopsy. Again, the patient keeps on saying she wants to go home after rehab. Aria is under the impression that the patient can be discharged from the longterm facility to an assisted living facility, specifically [facility]. And that her Medicare benefit will continue at [facility]. I carefully explained to the daughter that that is not the case. Once the patient completes her rehab under her longterm facility benefit with Medicare, [facility] will be self-pay. If the patient opts to stay at [facility] after her rehab benefit expires, she will also be self-pay at [facility]. Aria did not know this. She is unhappy at realizing that mom needs to pay for ongoing care. So she feels that mom will need to go back to her apartment under the hospice benefit. This is after she completes her rehab benefit. Aria is understandably overwhelmed and states that she does not know if she can take care of her mom. Just having her mom fall in her apartment really overwhelmed her. She could not find a way to help her. I was unable to speak to Zofia Alvarado under separate conversation. Zofia Alvarado, is the DPOA and POA has plans in place. The patient is Medicaid pending. Zofia Alvarado states that mom will complete her Medicare benefit for rehab. Then she will transition to [facility] as a Medicaid pending, Medicare patient. She will stay at [facility] for the rest of her days. As she gets progressively weaker from possible cancer, she was then transition her to hospice. Zofia Alvarado states that as POA and DPOA, mom is clearly stated that she does not want to be resuscitated. "Why would I want that". The patient has stated that "I will be worse off than I am now and I can barely stand living now". The patient is ambulatory with a walker at the longterm facility. Generalized aches and pains limit her. But she is losing ground. Needs help with personal hygiene matters. She is able to feed herself. Objective/Medical Story: 83-year-old female with a history of A-fib, hypertension, chronic joint pain. Diagnosis severe hypothyroidism in September and medications being adjusted. Most recent adjustment was to Synthroid [address] Spring. Unfortunately the current medication list from the long term states that the patient is on 50 mcg. There is no note of the dose going from 50 mcg to 75 mcg and then 200 mcg. Patient also has a new right pleural effusion. In view of the adenopathy, and history of previous cancers, the effusion may be metastatic disease. The diagnosis of definitive metastatic disease has not been established. That was a left open problem from September 2023 when she stopped Keytruda. She no longer wanted CT, biopsy, evaluation or treatment for cancer. She reiterates that today. She is a calculated fall risk of 7 per the nursing scores. Her pain is a 3 out of a 10 overall with all of her joints. Her left wrist is a 6 out of a 10. She is anxious, restless but with psychomotor slowing and her response. Says occasional chest congestion that clears with a cough. But no respiratory distress. She has generalized weakness. She has pretibial myxedema that is nonpitting at 2+. Skin is thick, callused over her right ankle and a red rash over her left ankle. Goals of Care: At this time the patient would like to go back to longterm facility to continue to do rehab to get stronger. Eventual goal is to go to [facility] assisted living facility. And from there she will remain until her eventual deterioration and transition to hospice. Plan: No change in this plan at this time. I commended Zofia Alvarado on having all of this in motion. This will help the patient and the family so much as they move forward. Current CODE STATUS is full code. The hospitalist on service said that she had not discussed CODE STATUS with the family. After today's discussion, I am changing the patient status to DO NOT RESUSCITATE. Daughter then states that there is a POLST form at [facility] and the POLST form reflects DO NOT RESUSCITATE status. Code Status: Do Not Attempt Resuscitation Time spent on advance care plannin+15+15>45 minutes
[2023-12-13 16:02] VITALS: BP 133/82; O2SAT 97
== END 2023-12-13 16:20 | disposition home or self-care (01) | DRG 189 ==
LOC: EDUNIT# → ED 11:30 → SUPCPDRO 11:30 → MS2 14:03
PROVIDERS: ADMIT Internal Medicine; ATTEND Specialist
PROC: 30233N1 Transfusion of Nonautologous Red Blood Cells into Peripheral Vein, Percutaneous Approach (ICD-10-PCS; principal; 2023-12-11)
DX: J96.01 Acute respiratory failure with hypoxia (principal); I48.20 Chronic atrial fibrillation, unspecified; J90 Pleural effusion, not elsewhere classified; C77.9 Secondary and unspecified malignant neoplasm of lymph node, unspecified; E78.00 Pure hypercholesterolemia, unspecified; I73.9 Peripheral vascular disease, unspecified; M79.89 Other specified soft tissue disorders; Z11.52 Encounter for screening for COVID-19; Z11.59 Encounter for screening for other viral diseases; R29.810 Facial weakness; T50.905A Adverse effect of unspecified drugs, medicaments and biological substances, initial encounter; E03.8 Other specified hypothyroidism; D64.9 Anemia, unspecified; I11.0 Hypertensive heart disease with heart failure; I50.9 Heart failure, unspecified; C80.1 Malignant (primary) neoplasm, unspecified; R41.0 Disorientation, unspecified; Z79.01 Long term (current) use of anticoagulants; Z79.82 Long term (current) use of aspirin; Z79.890 Hormone replacement therapy; Z79.899 Other long term (current) drug therapy; Z82.3 Family history of stroke; Z83.3 Family history of diabetes mellitus; Z85.828 Personal history of other malignant neoplasm of skin
CPT/HCPCS: 36415; 70450; 70496; 70498; 70551; 71045; 80048; 80053; 80143; 80306; 81003; 82272; 82607; 82746; 83540; 83605; 83735; 83880; 84443; 84466; 85025; 85045; 85610; 86850; 86900; 86901; 86920; 87040; 87633; 93005; 93307; 99285; A9270; G0480; P9016; Q9967; 80179; 81001; 82077; 87086

== ENCOUNTER 2023-12-19 05:35 | Outpatient (CLI) | payer MEDICARE | END 2023-12-19 05:36 | disposition critical access hospital (66) | LOC: EMS 05:35 | DX: R05.9 Cough, unspecified (principal); R06.02 Shortness of breath; R60.0 Localized edema; I10 Essential (primary) hypertension; Z99.81 Dependence on supplemental oxygen; Z79.01 Long term (current) use of anticoagulants | CPT/HCPCS: A0425; A0427 ==

== ENCOUNTER 2023-12-19 05:42 | Inpatient (IN) | payer MEDICARE ==
[2023-12-19 05:57] LABS: BASOPHILS # (AUTO) 0.2 10^3/uL (0.0-0.1); BASOPHILS % (AUTO) 0.8 %; EOSINOPHILS # (AUTO) 0.2 10^3/uL (0.0-0.7); HCT - HEMATOCRIT 32.8 % (37.0-47.0); HGB - HEMOGLOBIN 9.8 g/dL (12.0-16.0); LYMPHOCYTES # (AUTO) 1.1 10^3/uL (1.5-3.5); LYMPHOCYTES % (AUTO) 5.9 %; MEAN CORPUSCULAR HEMOGLOBIN 27.8 pg (27.0-31.0); MEAN CORPUSCULAR HGB CONC 29.9 g/dL (32.0-36.0); MEAN CORPUSCULAR VOLUME 93.2 fL (81.0-99.0); MEAN PLATELET VOLUME 9.9 fL (7.9-10.8); MONOCYTES # (AUTO) 0.9 10^3/uL (0.0-1.0); MONOCYTES % (AUTO) 4.9 %; NEUTROPHILS # (AUTO) 15.5 10^3/uL (1.5-6.6); NEUTROPHILS % (AUTO) 86.9 %; PLT - PLATELET COUNT 341 10^3/uL (130-450); RED BLOOD COUNT 3.52 10^6/uL (4.20-5.40); RED CELL DISTRIBUTION WIDTH 18.8 % (12.0-15.0); WHITE BLOOD COUNT 17.9 x10^3/uL (4.8-10.8)
[2023-12-19] MEDS: NITROGLYCERIN 2% PASTE TOP STA (06:02)
[2023-12-19] MEDS: diltiaZEM INJ 5 MG/ML VIAL IVP STA (06:02)
[2023-12-19 06:13] LABS: ALBUMIN 4.3 g/dL (3.2-5.5); ALBUMIN/GLOBULIN RATIO 1.2 (1.0-2.2); BILIRUBIN,TOTAL 1.1 mg/dL (0.2-1.0); CALCIUM 9.4 mg/dL (8.5-10.3); CREATININE 0.7 mg/dL (0.6-1.3); POTASSIUM 3.5 mmol/L (3.5-4.5); TOTAL PROTEIN 7.8 g/dL (6.4-8.9)
--- NOTE | 2023-12-19 06:22 | ED Physician Documentation ---
PD HPI DYSPNEA - Stated complaint Stated Complaint: SOA/AFIB - Chief complaint Chief Complaint: Resp - History obtained from History obtained from: Patient, EMS - Additional information Additional information: The patient is brought to the emergency department by EMS for chief complaint of shortness of breath. Patient has had increasing shortness of breath over the last couple of days but it got really bad overnight. Medics state that she also has had an elevated heart rate and appears to be in A-fib with RVR. Patient's blood pressure has also been fairly high in route. The patient does begin to cough up some blood-tinged foamy sputum in route as well. The patient states that she just feels very short of breath. She does not know if she has had fevers or chills at home. She has had a little bit of an increased cough. The patient is normally on 2 L of oxygen per nasal cannula at baseline. She was just admitted to the hospital recently for respiratory failure. PD PAST MEDICAL HISTORY - Past Medical History Cardiovascular: Hypertension, High cholesterol, Peripheral Vascular Disease, Atrial fibrillation Respiratory: None Neuro: None Endocrine/Autoimmune: None GI: None HOT BALLER: None : None HEENT: None Psych: Anxiety Musculoskeletal: Other Derm: Other - Past Surgical History Past Surgical History: Yes General: Appendectomy Ortho: Amputation Cardiovascular: Vascular surgery HEENT: Tonsil/Adenoidectomy - Present Medications Home Medications: Ambulatory Orders Medication Instructions Recorded Confirmed Zolpidem Tartrate 10 mg PO QPM PRN 03/19/17 12/12/23 Triamcinolone 0.5% Cream [Kenalog 1 applic TOP BID #15 gm 11/17/23 12/12/23 0.5% Cream] oxyCODONE [Roxicodone] 5 mg PO Q6H PRN #20 tablet 11/17/23 12/12/23 Apixaban [Eliquis] 5 mg ORAL BID #60 tab 12/13/23 12/12/23 Aspirin [Aspirin Regimen] 81 mg PO DAILY #30 tab 12/13/23 12/12/23 Cholecalciferol [Vitamin D3] 25 mcg PO DAILY #0 12/13/23 12/12/23 Cyanocobalamin (Vitamin B-12) 500 mcg PO DAILY #30 tab 12/13/23 [Vitamin B12] Levothyroxine Sodium [Synthroid] 75 mcg PO DAILY #30 tablet 12/13/23 Metoprolol Succinate [Toprol Xl] 50 mg PO QPM #30 tab 12/13/23 12/12/23 Olmesartan Medoxomil [Benicar] 20 mg PO DAILY #30 tab 12/13/23 12/12/23 Vit No.170/Iron/Folic 1 each PO DAILY #30 tablet 12/13/23 [Dermacinrx Prenatrix Caplet] Rosuvastatin Calcium [Crestor] 5 mg PO DAILY #30 tab 12/13/23 12/12/23 amLODIPine [Norvasc] 5 mg PO DAILY #30 tab 12/13/23 12/12/23 cloNIDine [Catapres] 0.1 mg PO DAILY #30 tab 12/13/23 12/12/23 - Allergies Allergies/Adverse Reactions: Allergies Allergy/AdvReac Type Severity Reaction Status Date / Time strawberry Allergy Unknown Verified 12/11/23 11:46 venom-honey bee Allergy swelling Verified 12/11/23 11:46 [bee venom (honey bee)] - Social History Does the pt smoke?: No Smoking Status: Never smoker Does the pt drink ETOH?: Yes Does the pt have substance abuse?: No - Immunizations Immunizations are current?: Yes - POLST Patient has POLST: No POLST Status: Full Code PD ED PE NORMAL - Vitals Vital signs reviewed: Yes - General General: Other (Alert, frail-appearing elderly female who is in moderate distress but alert.) - HEENT HEENT: Atraumatic, PERRL, EOMI, Moist mucous membranes - Neck Neck: Supple, no meningeal sign - Cardiac Cardiac: No murmur, Other (Tachycardic rate irregularly irregular rhythm.) - Respiratory Respiratory: Other (Moderate respiratory distress, Rales in the left lower lung field. Right lung clear.) - Abdomen Abdomen: Soft, Non tender, Non distended - Derm Derm: Normal color, Warm and dry, No rash - Extremities Extremities: No deformity, No edema, No calf tenderness / cord - Neuro Neuro: Other (The patient is awake and alert. Neurologic exam grossly intact.) - Psych Psych: Normal mood, Normal affect Results - Vitals Vitals: Vital Signs - 24 hr 12/19/23 12/19/23 12/19/23 05:54 06:01 06:09 Temperature 36.6 C Heart Rate 148 H 130 H 86 Respiratory 30 H 30 H 26 H Rate Blood Pressure 177/109 H 182/105 H 131/76 H O2 Saturation 74 L 100 88 L If not protocol 15 : Oxygen Flow, liters/minute 12/19/23 12/19/23 12/19/23 06:17 06:43 07:06 Temperature Heart Rate 85 85 78 Respiratory 20 Rate Blood Pressure 121/72 O2 Saturation 92 If not protocol : Oxygen Flow, liters/minute Oxygen O2 Source BIPAP Oxygen Flow Rate 2 - EKG (time done) 0550 EKG releavant findings:: EKG personally interpreted by author of this note. Relevant findings are: Rate: Rate (enter#) (140) Rhythm: Atrial fibrillation, Other (Multiple PVCs) [place]: Normal Intervals: Normal [place] QRS: Normal Ischemia: Normal ST segments Compare to prior EKG: Other Computer interpretation: Agree with computer - Labs Labs: Laboratory Tests 12/19/23 12/19/23 12/19/23 05:51 05:51 05:55 WBC 17.9 H RBC 3.52 L Hgb 9.8 L Hct 32.8 L MCV 93.2 MCH 27.8 MCHC 29.9 L RDW 18.8 H Plt Count 341 MPV 9.9 Neut # (Auto) 15.5 H Lymph # (Auto) 1.1 L Anderson # (Auto) 0.9 Eos # (Auto) 0.2 Baso # (Auto) 0.2 H Absolute Nucleated RBC 0.00 Nucleated RBC % 0.0 Bld Gas Analysis Time Sample Site ABG pH ABG pCO2 ABG pO2 ABG HCO3 ABG Total CO2 ABG O2 Saturation ABG Base Excess Joe Test O2 Delivery Device FiO2 EPAP IPAP Sodium 136 Potassium 3.5 Chloride 102 Carbon Dioxide 25 Anion Gap 9.0 BUN 24 H Creatinine 0.7 Estimated GFR (MDRD) 80 L Glucose 147 H Calcium 9.4 Total Bilirubin 1.1 H AST 43 H ALT 30 Alkaline Phosphatase 153 H Total Protein 7.8 Albumin 4.3 Globulin 3.5 Albumin/Globulin Ratio 1.2 Lipase 37 Nasal Adenovirus (PCR) NOT DETECTED Nasal B. parapertussis DNA (PCR) NOT DETECTED Nasal Coronavir 229E PCR NOT DETECTED Nasal Coronavir HKU1 PCR NOT DETECTED Nasal Coronavir NL63 PCR NOT DETECTED Nasal Coronavir OC43 PCR NOT DETECTED Nasal Enterovir/Rhinovir PCR NOT DETECTED Nasal Influenza B PCR NOT DETECTED Nasal Influenza A PCR NOT DETECTED Nasal Parainfluen 1 PCR NOT DETECTED Nasal Parainfluen 2 PCR NOT DETECTED Nasal Parainfluen 3 PCR NOT DETECTED Nasal Parainfluen 4 PCR NOT DETECTED Nasal RSV (PCR) NOT DETECTED Nasal B.pertussis DNA PCR NOT DETECTED Nasal C.pneumoniae (PCR) NOT DETECTED Tom Human Metapneumo PCR NOT DETECTED Nasal M.pneumoniae (PCR) NOT DETECTED Nasal SARS-CoV-2 (PCR) NOT DETECTED 12/19/23 06:57 WBC RBC Hgb Hct MCV MCH MCHC RDW Plt Count MPV Neut # (Auto) Lymph # (Auto) Anderson # (Auto) Eos # (Auto) Baso # (Auto) Absolute Nucleated RBC Nucleated RBC % Bld Gas Analysis Time 0700 Sample Site RIGHT RADIAL ABG pH 7.46 H ABG pCO2 28 L ABG pO2 65 L ABG HCO3 19.4 L ABG Total CO2 20.3 L ABG O2 Saturation 92 L ABG Base Excess -3.5 L Joe Test POSITIVE O2 Delivery Device BiPAP FiO2 100.00 EPAP 4 IPAP 10 Sodium Potassium Chloride Carbon Dioxide Anion Gap BUN Creatinine Estimated GFR (MDRD) Glucose Calcium Total Bilirubin AST ALT Alkaline Phosphatase Total Protein Albumin Globulin Albumin/Globulin Ratio Lipase Nasal Adenovirus (PCR) Nasal B. parapertussis DNA (PCR) Nasal Coronavir 229E PCR Nasal Coronavir HKU1 PCR Nasal Coronavir NL63 PCR Nasal Coronavir OC43 PCR Nasal Enterovir/Rhinovir PCR Nasal Influenza B PCR Nasal Influenza A PCR Nasal Parainfluen 1 PCR Nasal Parainfluen 2 PCR Nasal Parainfluen 3 PCR Nasal Parainfluen 4 PCR Nasal RSV (PCR) Nasal B.pertussis DNA PCR Nasal C.pneumoniae (PCR) Tom Human Metapneumo PCR Nasal M.pneumoniae (PCR) Nasal SARS-CoV-2 (PCR) - Rads (name of study) Chest x-ray Relevant Findings:: Final report received, See rad report (New consolidation in left lung, lingula and possibly lower lobe, concerning for pneumonia. Improved infiltrate in right lung.) PD Medical Decision Making - ED course Complexity details: reviewed results, re-evaluated patient, considered differential, d/w patient ED course: The patient was evaluated by myself immediately upon arrival in the emergency department. She was found to have oxygen saturation in the mid 70s on her normal 2 L of oxygen, and so was bumped up to 5 L. This only brought her oxygen up to 86% and the patient had to be given a nonrebreather mask just to get her oxygen into the low to mid 90s. The patient is continuing to struggle to breathe and I had ordered an inch of nitroglycerin paste and a dose of Cardizem 25 mg IV. The patient's heart rate did come down into a normal rate though still in A-fib, and her blood pressure did normalize. However, she had to be placed on BiPAP because of her ongoing failure to oxygenate. Her chest x-ray showed very large pneumonia in the left lower lung. At that point in time and did not realize she had been so recently admitted to the hospital and ordered Rocephin and Zithromax. I discussed her case with Dr. Almeida, who did agree to admit the patient to her service. She will start hospital-acquired pneumonia antibiotics while the patient is admitted. The patient's daughter did arrive to the emergency department and has been informed of the plan and is agreeable. Patient overall is doing much better now appearing more comfortable and oxygen saturations in the upper 90s on BiPAP. - Critical Care Time(min): 30 Comments: Critical care time was necessary, due to high probability of imminent and life- threatening decline, secondary to hypoxic respiratory failure, and to atrial fibrillation with rapid ventricular response. Time Includes: Direct patient care, Review records, Reassess patient, Document care, Coordinate care, Medical consult, See progress note Data interpretation: Labs, Pulse ox, ABG, CXR, Prior EKG, Cardiac output, See progress note Procedures included in critical care time: Ventilator mgmt, See progress note Departure - Departure Disposition: 66 [facility] DC/Xfer Clinical Impression: Hypoxia Pneumonia Qualifiers: Pneumonia type: due to unspecified organism Laterality: left Lung location: unspecified part of lung Qualified Code(s): J18.9 - Pneumonia, unspecified organism Respiratory failure Qualifiers: Chronicity: acute Respiratory failure complication: hypoxia Qualified Code(s): J96.01 - Acute respiratory failure with hypoxia Condition: Critical Forms: PCP List
[2023-12-19] MEDS ORDERED: cefTRIAXone 2 GM VIAL ONE (06:31)
[2023-12-19] MEDS: cefTRIAXone 2 GM in SODIUM CHLORIDE 0.9% MINIBAG 100 ML IV STA (06:33)
[2023-12-19] MEDS: ONDANSETRON 4 MG/2 ML VIAL IVP STA (06:33)
[2023-12-19 07:01] LABS: B. PARAPERTUSSIS- RESP PCR PAN NOT DETECTED; B. PERTUSSIS- RESP PCR PANEL NOT DETECTED; C. PNEUMONIAE- RESP PCR PANEL NOT DETECTED; CORONAVIRUS 229E-RESP PCR NOT DETECTED; CORONAVIRUS HKU1-RESP PCR NOT DETECTED; CORONAVIRUS NL63-RESP PCR NOT DETECTED; CORONAVIRUS OC43-RESP PCR NOT DETECTED; HUMAN METAPNEUMOVIRUS NOT DETECTED; INFLUENZA A- RESP PCR PANEL NOT DETECTED; INFLUENZA B - RESP PCR PANEL NOT DETECTED; M. PNEUMONIAE- RESP PCR PANEL NOT DETECTED; PARAINFLUENZA VIRUS 1 NOT DETECTED; PARAINFLUENZA VIRUS 2 NOT DETECTED; PARAINFLUENZA VIRUS 3 NOT DETECTED; PARAINFLUENZA VIRUS 4 NOT DETECTED; RHINOVIRUS/ENTEROVIRUS NOT DETECTED; RSV- RESP PCR PANEL NOT DETECTED; SARS-CoV-2 -RESP PCR PANEL NOT DETECTED
[2023-12-19 07:02] LABS: ABG BASE EXCESS -3.5 mmol/L (-2.0-3.0); ABG HCO3 19.4 mmol/L (22.0-26.0); ABG OXYGEN SATURATION 92 % (94-98); ABG PCO2 28 mmHg (34-45); ABG PH 7.46 (7.35-7.45); ABG PO2 65 mmHg (80-100); ABG TCO2 20.3 MMOL/L (21.0-29.0); ALLEN TEST POSITIVE
[2023-12-19] MEDS: AZITHROMYCIN INJ 500 MG in SODIUM CHLORIDE 0.9% 250 ML IV STA (07:14)
[2023-12-19] MEDS ORDERED: ACETAMINOPHEN 325 MG TABLET PO PRN (07:33)
[2023-12-19] MEDS ORDERED: ONDANSETRON 4 MG/2 ML VIAL IVP PRN (07:33)
[2023-12-19] MEDS ORDERED: oxyCODONE 5 MG TABLET PO PRN ×2 (07:33→11:52)
--- NOTE | 2023-12-19 07:51 | XRAY Report ---
PROCEDURE: Chest 1V INDICATIONS: dyspnea TECHNIQUE: One view of the chest was acquired. COMPARISON: 12/11/2023. FINDINGS: Surgical changes and devices: None. Lungs and pleura: Previous right pleural fluid has resolved. There is probable interstitial pulmonar y edema. Development of density from the upper third of the left lung field to the lung base, suggest ing pneumonia and possible associated pleural fluid. Mediastinum: Mediastinal contours appear normal. Heart size is normal. Bones and chest wall: No suspicious bony lesions. Overlying soft tissues appear unremarkable. IMPRESSION: Findings suggest acute left-sided pneumonia superimposed on pulmonary edema. Consider CT chest to evaluate whether the density represents a large pneumonia. Findings are concordant with preliminary interpretation provided by [facility]. Reviewed by: Ronald Lee MD on 12/19/2023 7:50 AM PDT Approved by: Ronald Lee MD on 12/19/2023 7:50 AM PDT Station ID: [id number]
--- NOTE | 2023-12-19 08:15 | PHARMACY PROGRESS NOTE ---
- Therapy Status Therapy status: Awaiting steady state Basis for treatment: Empirical Treatment indication: Pneumonia, recent hospitalization Trough goal: AUC/DARLENE 400-600 Concurrent antibiotics: Cefepime - Monitoring and Recommendation Clinical response to treatment: I&O Previous 24 hours 12/17/23 12/18/23 12/19/23 23:59 23:59 23:59 Intake Total 100 Balance 100 Lab Results 12/19/23 05:51 BUN 24 H Creatinine 0.7 Estimated GFR (MDRD) 80 L Monitoring plan: Daily serum creatinine Areas for additional monitoring: IV to PO when appropriate, Therapy de- escalation based on culture results Pharmacy recommendation: Continue current regime (Loading dose of 1.5 g (23.8 m g/kg) x 1, followed by maintenance dose of 1 g (16 mg/kg) q24h.)
[2023-12-19] MEDS: ONDANSETRON ODT 4 MG TABLET TL PRN (08:54)
[2023-12-19] MEDS: SODIUM CHLORIDE FLUSH 0.9% 10 ML SYRINGE IVP SCH (08:55)
--- NOTE | 2023-12-19 09:23 | PHARMACY PROGRESS NOTE ---
- Best Possible Medication History Admit Date and Time: 12/19/23 0733 Processed by: Pharmacy Medications reviewed in ED?: No Medication History completed: Yes Secondary Source(s): Facility MAR as ONLY source As the person ultimately responsible for medication therapy, providers are able to order a medication from an existing home medication list in [facility] via the "Reconcile Routine" prior to Confirmation of that medication by child support case officer. Such practice is discouraged except when the physician, in their clinical judgment, deems that a medical need exists for a medication without regard to previous use.
[2023-12-19] MEDS: SACCHAROMYCES BOULARDII 250 MG CAPSULE PO SCH (09:50)
[2023-12-19] MEDS: VANCOMYCIN INJ 1 GM, VANCOMYCIN INJ 500 MG in SODIUM CHLORIDE 0.9% 500 ML IV ONE (10:04)
[2023-12-19] MEDS: SODIUM CHLORIDE 0.9% 1,000 ML IV SCH (10:04)
[2023-12-19] MEDS: amLODIPine 5 MG TABLET PO SCH (12:15)
[2023-12-19] MEDS: APIXABAN 2.5 MG TABLET PO SCH (12:15)
[2023-12-19] MEDS: METOPROLOL SUCCINATE 50 MG TABLET PO SCH (12:15)
--- NOTE | 2023-12-19 14:25 | HISTORY & PHYSICAL EXAMINATION ---
Chief Complaint - Chief Complaint Chief Complaint: Progressive and acute shortness of breath History of Present Illness - Admitted From Admitted From:: [facility] - History Obtained From Records Reviewed: [facility] History obtained from: Patient Exam Limitations: None - History of Present Illness HPI Comment/Other: This raghu 83-year-old female was just discharged from our facility on December 12. 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 It is postulated that she has spread of her squamous cell lung cancer with groin adenopathy or recurrence of her history of colon cancer. For quality of life discussions, and financial concerns, she and the daughter have decided not to pursue workup with biopsy or more treatment. She is in subsidized housing and has been there for a few years with the help of daughter and caregivers. She does not require 24/7 care but they do come by almost daily. When the Keytruda really cause the downward turn, that is why she ended up in the [facility] facility for temporary rehab. She was seen in the emergency room November 16 with cancer related pain. Kept overnight since she did not have criteria for admission and was placed at [facility] by November 17. Seen by hospice for informational visit in the emergency room as well as at the senior care. Daughter has opted not to put her in hospice yet for financial reasons. They cannot take her home to take care of her. They do not have the money for caregivers. They hope to complete rehab at [facility]. Once she leaves [facility] she will go to an assisted living facility and the hospitalist will be ordered then. Hope that the assisted living facility will be paid by the patient's benefits as a Medicare Medicaid patient. Mom is Medicaid pending. The daughter has been in negotiations with [employer] with this matter. Approximately first week of December she had a short episode of altered mental status at the SNF that quickly cleared after about an hour. She was then brought to our emergency room December 10 for facial droop, weakness, shortness of breath. In the emergency room she was noted to be hypoxic with a hemoglobin of 7.4. Chest x-ray had a right pleural effusion.A stroke workup ensued for her altered mental status but no new findings were found. She has anemia and no EGD or colonoscopy was done but she was transfused 1 unit. She received IV diuresis for possible mild fluid overload. She is still hypoxic, and she does have a large to moderate right-sided pleural effusion which is being treated with a diuretic. She is felt to have mild acute on chronic congestive heart failure. Her last echocardiogram was done in March 2017. She had a normal ejection fraction of 60 to 65%. Impaired relaxation consistent with grade 1 diastolic dysfunction. Right ventricle was normal in size and function. No significant valvular heart disease. 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 A PET scan done in June 2023 is notable for bilateral inguinal adenopathy concerning for metastatic disease. Keytruda was held because of ongoing symptoms of thyroid. 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 She also has a history of early low-grade colon cancer of the rectosigmoid that was resected in 2016. Again now with lymphadenopathy of unclear etiology. I did speak to her oncologist. He does postulate that her pleural effusion could be malignant. But patient and family have decided, again, not to pursue workup for quality of life decisions. She was discharged after diuresis. Went back to a [facility] facility on December 12. She is walking 3 laps in the facility. Feeling like she is accomplishing the goal to get stronger. She even went to her apartment on Tuesday, December 16 to clean the kitchen her apartment. Yesterday she felt as if she was developing a cold with some chest congestion. And then everything just went downhill from there starting last night into this morning.. Severe shortness of breath. She was having sharp stabbing pain in her left upper quadr ant. I thought at first she was talking about her chest wall but she points to the left upper quadrant underneath her spleen. She said the pain was so severe but it would only last for seconds and then come back. She is having normal bowel movements. No distention. No diarrhea. No blood in her stool. No fever. Appetite has been "okay". Ambulance was called for the shortness of breath. Productive cough. Blood pressure is 177/109. Heart rate 148. Temperature 36.6. She was 74% on room air. She is on Eliquis and aspirin which should be adequate anticoagulation. She did not be having a PE. She was noted to be coughing up blood-tinged foamy sputum. Very short of breath. No fever, no chills. She is on 2 L nasal cannula at baseline. The ER doctor found her to be frail-appearing but alert and moderate distress from respiratory status. Tachycardic irregular rate and rhythm. Rales in the left lower lung field, right lung was clear. Her white cell count was 17.9. Hemoglobin 9.8. Random glucose 147. Viral panel negative for COVID. A chest x-ray was done and she has acute left-sided pneumonia superimposed on pulmonary edema. The previous right pleural effusion has re solved. There is density from the upper third of the left lung field to the lung base. She was placed on BiPAP because of the severe hypoxemia to 74% on room air. Blood gas done for evaluation had a pH 7.46, pCO2 28, pO2 65 on BiPAP. The ER doctor called me and she and I discussed the case. We discussed the possibility of recurrence of neoplasm. She is a DNR. Bypass with acceptable but not intubation. I then quickly called the daughter to make sure she wanted mom hospitalized and not in comfort care. She says that she wanted us to move forward with admission and stabilization of her current acute respiratory failure. 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 Had osteoporosis. Dad with complications of diabetes. No siblings. 3 kids healthy. [place] Living arrangement: [facility] Living Situation: Alone Social History Notes: 1 to 2 glasses of wine a week with dinner. No history of smoking. of Alzheimer's/Parkinson's 5 years ago. She moved to apartment near [facility]. Very independent but daughter goes by daily to make sure she's ok. Started falling. 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 Resulted in weakness and falls and placement to SNF for rehab November 17. - Substance History Use: Uses substance without health or social issues: Alcohol (1-2 glasses of win e a week with dinner) - POLST Patient has POLST: Yes POLST Status: DNR Meds/Allgy - Home Medications Home Medications: Ambulatory Orders Medication Instructions Recorded Confirmed Zolpidem Tartrate 10 mg PO QPM PRN 03/19/17 12/19/23 Triamcinolone 0.5% Cream [Kenalog 1 applic TOP BID #15 gm 11/17/23 12/19/23 0.5% Cream] oxyCODONE [Roxicodone] 5 mg PO Q6H PRN #20 tablet 11/17/23 12/19/23 Apixaban [Eliquis] 5 mg ORAL BID #60 tab 12/13/23 12/19/23 Aspirin [Aspirin Regimen] 81 mg PO DAILY #30 tab 12/13/23 12/19/23 Cholecalciferol [Vitamin D3] 25 mcg PO DAILY #0 12/13/23 12/19/23 Cyanocobalamin (Vitamin B-12) 500 mcg PO DAILY #30 tab 12/13/23 12/19/23 [Vitamin B12] Levothyroxine Sodium [Synthroid] 75 mcg PO DAILY #30 tablet 12/13/23 12/19/23 Metoprolol Succinate [Toprol Xl] 50 mg PO QPM #30 tab 12/13/23 12/19/23 Olmesartan Medoxomil [Benicar] 20 mg PO DAILY #30 tab 12/13/23 12/19/23 Vit No.170/Iron/Folic 1 each PO DAILY #30 tablet 12/13/23 12/19/23 [Dermacinrx Prenatrix Caplet] Rosuvastatin Calcium [Crestor] 5 mg PO DAILY #30 tab 12/13/23 12/19/23 amLODIPine [Norvasc] 5 mg PO DAILY #30 tab 12/13/23 12/19/23 cloNIDine [Catapres] 0.1 mg PO DAILY #30 tab 12/13/23 12/19/23 - Allergies Allergies/Adverse Reactions: Allergies Allergy/AdvReac Type Severity Reaction Status Date / Time strawberry Allergy Unknown Verified 12/11/23 11:46 venom-honey bee Allergy swelling Verified 12/11/23 11:46 [bee venom (honey bee)] Review of Systems - Constitutional Constitutional: reports: Fatigue, Weakness, Poor appetite, Weight loss. denies: Fever, Chills, Malaise, Diaphoresis, Night sweats - Eyes Eyes: denies: Pain, Irritation, Amaurosis, Blurred vision, Vision loss - Ears, Nose & Throat Ears, Nose & Throat: reports: Hearing loss (Chronic). denies: Nasal discharge, Nasal obstruction, Nasal congestion, Postnasal drainage, Sore throat, Hoarseness - Cardiovascular Cariovascular: reports: Chest pain, Exertional dyspnea, Decr. exercise tolerance - Respiratory Respiratory: reports: Cough, Sputum production (Frothy and pink-tinged) - Gastrointestinal Gastrointestinal: reports: Abdominal pain. denies: Abdominal distention, Constipation, Diarrhea, Change in bowel habits, Rectal bleeding, Bloody stools, Nausea, Vomiting - Genitourinary Genitourinary: reports: Incontinence. denies: Dysuria, Frequency, Urgency, Hematuria - Musculoskeletal Musculoskeletal: reports: Muscle aches, Stiffness. denies: Muscle pain, Back pain, Gout, Joint pain - Integumentary Integumentary: denies: Rash, Pruritis, Lesions, Dryness - Neurological Neurological: reports: General weakness (Causing falls at home), Memory problems, Pre-existing deficit, Incoordination (Chronic not new). denies: Focal weakness, Headache, Dizziness, Abnormal gait - Psychiatric Psychiatric: reports: Anxiety. denies: Depression, Suicidal, Delusions, Hallucinations - Endocrine Endocrine: denies: Polyuria, Polydypsia, Polyphagia, Intolerance to cold - Hematologic/Lymphatic Hematologic/Lymphatic: reports: Anemia, Lymphadenopathy. denies: Bruising, Petechiae, Blood clots Prior Level of Functionality: Baseline is ambulatory with a walker. Because of memory deficit, needs prompting for ADLs and toileting needs but is able to accomplish those. Is 2 L nasal cannula. Was living in her apartment with help up until placement to senior care November 17. Exam - Vital Signs Reviewed Vital Signs: Yes Vital Signs: Vital Signs x48h Temp Pulse Pulse Resp BP BP Pulse Ox 12/19/23 14:00 92 23 119/81 H 96 12/19/23 13:00 88 96 H 120/70 95 12/19/23 12:00 90 19 124/64 95 12/19/23 10:58 87 17 125/86 H 100 12/19/23 10:00 100 H 20 L 12/19/23 09:00 99.9 C H 12/19/23 08:45 99.9 C H 15 95 12/19/23 08:43 12/19/23 08:29 91 12/19/23 08:00 77 19 96/70 92 12/19/23 07:30 70 16 107/66 91 L 12/19/23 07:06 78 12/19/23 06:43 85 20 121/72 92 O2 Flow Rate 12/19/23 14:00 12 12/19/23 13:00 12/19/23 12:00 14 12/19/23 10:58 12/19/23 10:00 12/19/23 09:00 12/19/23 08:45 12/19/23 08:43 15 12/19/23 08:29 12/19/23 08:00 12/19/23 07:30 12/19/23 07:06 12/19/23 06:43 - Physical Exam General Appearance: positive: Alert, Mild distress (She came to ICU with BiPAP. That was this morning. But this afternoon I have her on high flow nasal cannula. Anxious. Worried that "this is when she is going to "), Other (Elderly frail female looks stated age. Some bilateral temporal wasting. [place] gopi of reduced muscle mass on exam.) Eyes Bilateral: positive: PERRL, EOMI ENT: positive: No signs of dehydration Neck: positive: No JVD. negative: Stiff neck Respiratory: positive: Rales, Rhonchi, Other (Mild tachypnea, sitting upright in bed.). negative: Wheezes Cardiovascular: positive: Irregularly irregular, Tachycardia Peripheral Pulses: positive: 1+ Abdomen: positive: Non-tender, No organomegaly, Nml bowel sounds, No distention, Other (I deeply palpate the left upper quadrant and there is no reproduction of the pain she was describing) Skin: positive: Warm, Dry Extremities: positive: Full ROM, No pedal edema Neurologic/Psychiatric: positive: Oriented x3, Motor nml (Set for weakness. No focal deficits), Disoriented to time (Fearful about the situation but oriented to person, place, but easily overwhelmed and can lose the throat at the conversation). negative: CN's nml (2-12) (Deafness) Conclusion/Plan - Problem List (1) Acute respiratory failure with hypoxia Conclusion/Plan: Very sudden. It is interesting that this woman had resolution of her right pleural effusion which we feel it was going to be malignancy related. And now she presents with left lung changes that were not seen on previous admit. She is a resident of a [facility] facility. Recently hospitalized and treated with antibiotics. Differential for this admission causing the failure will be left lung pneumonia, PE, sudden systolic CHF due to severe hypertension (the frothy pink phlegm). Treatment to this point has consisted of empiric antibiotics, BiPAP and the pat ient has had a brisk diuresis. Plan: Inpatient status Troponin Treat empirically for pneumonia CT of chest to rule out PE and to assess for underlying pneumonia/pleural effusion (2) Pneumonia Conclusion/Plan: I have chosen cefepime and vancomycin to start her on an immunocompromised patient with facility acquired pneumonia Today is day #1/5 I will check Vanco troughs to make sure I do not cause renal insufficiency send blood cultures have been ordered and I will follow those results to see if I need to adjust medication Qualifiers: Pneumonia type: due to unspecified organism Laterality: left Lung location: unspecified part of lung Qualified Code(s): J18.9 - Pneumonia, unspecified organism (3) Severe hypertension Conclusion/Plan: The cause of the sudden rise in blood pressure is unknown. This could be stress and reaction to infection that then cause a subsequent rise in blood pressure. Or did the sudden rise in blood pressure lead to sudden heart failure with pink frothy phlegm. In the emergency room she received diltiazem, nitroglycerin paste but no diuretic. Blood pressure is now down to 124/64. Echocardiogram done December 11 has an ejection fraction of 55 to 60%. Severe increase in left atrial volume index. Mild aortic regurgitation, mild mitral regurgitation, moderate tricuspid regurgitation, mildly abnormal heart pressures. The inferior Q vena cava was dilated with greater than 50% inspiratory collapse which is suggestive of an RAP of 8 mmHg. Plan: Home medications are Benicar 20, Catapres 0.1 daily, Norvasc 5 mg daily metoprolol XL 50 mg daily. All of those medications will be resumed. Substitution of Benicar with losartan 50 daily. (4) Afib Conclusion/Plan: Presents on Eliquis and metoprolol. These have been resumed. Qualifiers: Atrial fibrillation type: longstanding persistent Qualified Code(s): I48.11 - Longstanding persistent atrial fibrillation (5) Cognitive decline Conclusion/Plan: custodial plan per daughter is placement in [facility] after she finishes physical rehab (6) General weakness Conclusion/Plan: to return to rehab order PT/OT for this stay - Lab Results Lab results reviewed: Yes Fish Bones: 12/20/23 04:36 12/20/23 04:36 - Diagnostic Imaging Results Diagnostic Imaging Results: positive: Final report reviewed
[2023-12-19] MEDS: CEFEPIME 2 GM in SODIUM CHLORIDE 0.9% MINIBAG 100 ML IV SCH (14:27)
[2023-12-19] MEDS ORDERED: iohexoL-300 100 ML VIAL ONE (16:32)
[2023-12-19] MEDS: iohexoL-300 100 ML VIAL IVP ONE (18:31)
[2023-12-19] MEDS: TRIAMCINOLONE 0.5% CREAM 15 GM TUBE TOP SCH (21:02)
[2023-12-19] MEDS: ATORVASTATIN 10 MG TABLET PO SCH (21:04)
[2023-12-20 05:31] LABS: BASOPHILS # (AUTO) 0.1 10^3/uL (0.0-0.1); BASOPHILS % (AUTO) 0.6 %; EOSINOPHILS # (AUTO) 0.1 10^3/uL (0.0-0.7); EOSINOPHILS % (AUTO) 0.5 %; HCT - HEMATOCRIT 25.2 % (37.0-47.0); HGB - HEMOGLOBIN 7.7 g/dL (12.0-16.0); LYMPHOCYTES # (AUTO) 0.7 10^3/uL (1.5-3.5); LYMPHOCYTES % (AUTO) 4.9 %; MEAN CORPUSCULAR HEMOGLOBIN 28.4 pg (27.0-31.0); MEAN CORPUSCULAR HGB CONC 30.6 g/dL (32.0-36.0); MEAN PLATELET VOLUME 10.5 fL (7.9-10.8); MONOCYTES # (AUTO) 0.7 10^3/uL (0.0-1.0); MONOCYTES % (AUTO) 5.1 %; NEUTROPHILS # (AUTO) 12.6 10^3/uL (1.5-6.6); NEUTROPHILS % (AUTO) 88.3 %; PLT - PLATELET COUNT 199 10^3/uL (130-450); RED BLOOD COUNT 2.71 10^6/uL (4.20-5.40); RED CELL DISTRIBUTION WIDTH 19.1 % (12.0-15.0); WHITE BLOOD COUNT 14.2 x10^3/uL (4.8-10.8)
[2023-12-20 05:46] LABS: CALCIUM 8.4 mg/dL (8.5-10.3); CREATININE 0.8 mg/dL (0.6-1.3); POTASSIUM 3.6 mmol/L (3.5-4.5)
[2023-12-20] MEDS: LEVOTHYROXINE 75 MCG TABLET PO SCH (08:15)
[2023-12-20] MEDS: CYANOCOBALAMIN 500 MCG TABLET PO SCH (08:15)
[2023-12-20] MEDS: LOSARTAN 50 MG TABLET PO SCH (08:15)
[2023-12-20] MEDS: CHOLECALCIFEROL 25 MCG TABLET PO SCH (08:15)
[2023-12-20] MEDS: cloNIDine 0.1 MG TABLET PO SCH (08:16)
[2023-12-20] MEDS: VANCOMYCIN INJ 1 GM in SODIUM CHLORIDE 0.9% 250 ML IV SCH (08:16)
[2023-12-20] MEDS: PRENATAL VITAMIN TABLET PO SCH (08:16)
[2023-12-20] MEDS: SODIUM CHLORIDE 0.9% 1,000 ML IV SCH (10:28)
[2023-12-20] MEDS: APIXABAN 2.5 MG TABLET PO ONE (10:29)
--- NOTE | 2023-12-20 10:38 | PROVIDER PROGRESS NOTE ---
Subjective - Prog Note Date Prog Note Date: 12/20/23 Prog Note Time: 10:35 - Subjective Pt reports feeling: Improved Subjective: Mrs. Villanueva has been with us for 3 days. She was previously admitted about a week ago for right lung PNA with right lung infiltrates. She returned around Tuesday after having pulmonary congestion on Tuesday, associated with the development of left lung PNA with left lung infiltrates. Today she is improving. During morning rounds patient sclera, bilaterally were noted to be edematous with lacrimation. She did not have any associated pain, decrease in ROM/strength or conjunctival injection. Her O2 sat is at 91 with simple mask. She will have PT/OT work with her during the rest of her admission. She will be admitted for 3 more days and be assessed for discharge to nursing facility. Current Medications - Current Medications Current Medications: Active Medications Acetaminophen (Acetaminophen 325 Mg Tablet) 650 mg PO Q4HR PRN PRN Reason: Pain 1 to 4, or Fever Albuterol (Albuterol Neb 2.5 Mg/3 Ml) 2.5 mg INH Q4HR PRN PRN Reason: Wheezing Amlodipine Besylate (Amlodipine 5 Mg Tablet) 5 mg PO DAILY [facility] Last Admin: 12/20/23 08:15 Dose: 5 mg Apixaban (Apixaban 5 Mg Tablet) 5 mg PO BID [facility] Atorvastatin Calcium (Atorvastatin 10 Mg Tablet) 10 mg PO QPM [facility] Last Admin: 12/19/23 21:04 Dose: 10 mg Cholecalciferol (Cholecalciferol 25 Mcg Tablet) 25 mcg PO DAILY [facility] Last Admin: 12/20/23 08:15 Dose: 25 mcg Clonidine HCl (Clonidine 0.1 Mg Tablet) 0.1 mg PO DAILY [facility] Last Admin: 12/20/23 08:16 Dose: 0.1 mg Cyanocobalamin (Cyanocobalamin 500 Mcg Tablet) 500 mcg PO DAILY [facility] Last Admin: 12/20/23 08:15 Dose: 500 mcg Cefepime HCl 2 gm/ Sodium (Chloride) 100 mls @ 200 mls/hr IV Q8HR [facility] Stop: 12/26/23 13:59 Last Infusion: 12/20/23 08:48 Dose: Infused Vancomycin HCl 1 gm/ Sodium (Chloride) 250 mls @ 167 mls/hr IV Q24H [facility] Last Admin: 12/20/23 08:16 Dose: 167 mls/hr Sodium Chloride (Normal Saline 0.9%) 1,000 mls @ 83 mls/hr IV .Q12H3M [facility] Last Admin: 12/20/23 10:28 Dose: 83 mls/hr Levothyroxine Sodium (Levothyroxine 75 Mcg Tablet) 75 mcg PO DAILY [facility] Last Admin: 12/20/23 08:15 Dose: 75 mcg Losartan Potassium (Losartan 50 Mg Tablet) 50 mg PO DAILY [facility] Last Admin: 12/20/23 08:15 Dose: 50 mg Metoprolol Succinate (Metoprolol Succinate 50 Mg Tablet) 50 mg PO QPM [facility] Last Admin: 12/19/23 21:01 Dose: Not Given Ondansetron HCl (Ondansetron Odt 4 Mg Tablet) 4 mg TL Q6HR PRN PRN Reason: Nausea / Vomiting Last Admin: 12/19/23 08:54 Dose: 4 mg Ondansetron HCl (Ondansetron 4 Mg/2 Ml Vial) 4 mg IVP Q6HR PRN PRN Reason: Nausea / Vomiting Oxycodone HCl (Oxycodone 5 Mg Tablet) 5 mg PO Q4HR PRN PRN Reason: Pain 5 to 7 Multivit/Folic Acid/Iron ( Vitamin Tablet) 1 tab PO DAILYWM [facility] Last Admin: 12/20/23 08:16 Dose: 1 tab Saccharomyces Boulardii (Saccharomyces Boulardii 250 Mg Capsule) 250 mg PO BIDWM [facility] Last Admin: 12/20/23 08:15 Dose: 250 mg Sodium Chloride (Sodium Chloride Flush 0.9% 10 Ml Syringe) 10 ml IVP PRN PRN PRN Reason: NEEDED PER PROVIDER ORDERS Sodium Chloride (Sodium Chloride Flush 0.9% 10 Ml Syringe) 10 ml IVP 0100,0900,1700 [facility] Last Admin: 12/20/23 10:29 Dose: 10 ml Triamcinolone Acetonide (Triamcinolone 0.5% Cream 15 Gm Tube) 1 applic TOP BID [facility] Last Admin: 12/20/23 08:16 Dose: 1 applic Zolpidem Tartrate 10 mg PO QPM PRN 03/19/17 Objective - Vital Signs/Intake & Output Reviewed Vital Signs: Yes Vital Signs: Vital Signs x48h Temp Pulse Resp BP Pulse Ox O2 Flow Rate 12/20/23 10:18 36.7 C 78 18 88/50 L 93 4 12/20/23 10:00 78 97 H 86/53 L 96 3 12/20/23 09:00 81 17 77/56 L 93 3 12/20/23 08:00 36.8 C 79 16 114/67 93 5 12/20/23 07:57 6 12/20/23 07:06 95 20 114/66 93 8 12/20/23 07:00 8 12/20/23 06:43 89 17 122/67 92 8 12/20/23 05:00 86 18 116/83 H 92 8 12/20/23 04:00 36.8 C 86 18 116/83 H 92 8 12/20/23 03:00 88 17 103/75 92 8 Intake & Output: Intake & Output 12/17/23 12/18/23 12/19/23 12/20/23 23:59 23:59 23:59 23:59 Intake Total 1665 1700 Output Total 0 515 Balance 1665 1185 - Objective General Appearance: positive: Alert Eyes Bilateral: positive: PERRL, No scleral icterus, Other (sclera is edematous w/ mild lacremation w/o pain or conjunctival injection) ENT: positive: No signs of dehydration Neck: positive: Nml inspection, No JVD, Trachea midline Respiratory: positive: Chest non-tender, Other (hypoxic) Cardiovascular: positive: Regular rate & rhythm, No murmur, No gallop Abdomen: positive: Non-tender, No organomegaly, Nml bowel sounds, No distention. negative: Guarding, Rebound Skin: positive: Other (dermatoporosis bilateral upper extremities). negative: Cyanosis, Diaphoresis Extremities: positive: Non-tender, No pedal edema Neurologic/Psychiatric: positive: Oriented x3, CN's nml (2-12), Motor nml, Sensation nml, Mood/affect nml - Lab Results Fish Bones: 12/20/23 04:36 12/20/23 04:36 Other Labs: Lab Results x24hrs 12/20/23 12/20/23 12/20/23 Range/Units 08:07 04:36 04:36 WBC 14.2 H (4.8-10.8) x10^3/uL RBC 2.71 L (4.20-5.40) 10^6/uL Hgb 7.7 L (12.0-16.0) g/dL Hct 25.2 L (37.0-47.0) % MCV 93.0 (81.0-99.0) fL MCH 28.4 (27.0-31.0) pg MCHC 30.6 L (32.0-36.0) g/dL RDW 19.1 H (12.0-15.0) % Plt Count 199 (130-450) 10^3/uL MPV 10.5 (7.9-10.8) fL Neut # (Auto) 12.6 H (1.5-6.6) 10^3/uL Lymph # (Auto) 0.7 L (1.5-3.5) 10^3/uL Ripley # (Auto) 0.7 (0.0-1.0) 10^3/uL Eos # (Auto) 0.1 (0.0-0.7) 10^3/uL Baso # (Auto) 0.1 (0.0-0.1) 10^3/uL Absolute Nucleated RBC 0.00 x10^3/uL Nucleated RBC % 0.0 /100WBC Sodium 136 (135-145) mmol/L Potassium 3.6 (3.5-4.5) mmol/L Chloride 107 (101-111) mmol/L Carbon Dioxide 23 (21-32) mmol/L Anion Gap 6.0 (6-13) BUN 24 H (6-20) mg/dL Creatinine 0.8 (0.6-1.3) mg/dL Estimated GFR (MDRD) 68 L (>89) Glucose 89 (74-104) mg/dL Calcium 8.4 L (8.5-10.3) mg/dL Nasal Screen MRSA (PCR) (NEGATIVE) Blood Type A POSITIVE Antibody Screen NEGATIVE Crossmatch IS Only See Detail 12/19/23 Range/Units 08:40 WBC (4.8-10.8) x10^3/uL RBC (4.20-5.40) 10^6/uL Hgb (12.0-16.0) g/dL Hct (37.0-47.0) % MCV (81.0-99.0) fL MCH (27.0-31.0) pg MCHC (32.0-36.0) g/dL RDW (12.0-15.0) % Plt Count (130-450) 10^3/uL MPV (7.9-10.8) fL Neut # (Auto) (1.5-6.6) 10^3/uL Lymph # (Auto) (1.5-3.5) 10^3/uL [place]ipley # (Auto) (0.0-1.0) 10^3/uL Eos # (Auto) (0.0-0.7) 10^3/uL Baso # (Auto) (0.0-0.1) 10^3/uL Absolute Nucleated RBC x10^3/uL Nucleated RBC % /100WBC Sodium (135-145) mmol/L Potassium (3.5-4.5) mmol/L Chloride (101-111) mmol/L Carbon Dioxide (21-32) mmol/L Anion Gap (6-13) BUN (6-20) mg/dL Creatinine (0.6-1.3) mg/dL Estimated GFR (MDRD) (>89) Glucose (74-104) mg/dL Calcium (8.5-10.3) mg/dL Nasal Screen MRSA (PCR) NEGATIVE (NEGATIVE) Blood Type Antibody Screen Crossmatch IS Only ABX Reporting Has patient been on IV antibiotics over the past 48 hours?: No Sepsis Event Note (H) - Evaluation Current Stage of Sepsis: Ruled out Assessment/Plan - Problem List (1) Acute respiratory failure with hypoxia Impression: Conclusion/Plan: Very sudden. It is interesting that this woman had resolution of her right pleural effusion which we feel it was going to be malignancy related. And now she presents with left lung changes that were not seen on previous admit. She is a resident of a group home facility. Recently hospitalized and treated with antibiotics. Differential for this admission causing the failure will be left lung pneumonia, PE, sudden systolic CHF due to severe hypertension (the frothy pink phlegm). Treatment to this point has consisted of empiric antibiotics, BiPAP and the patient has had a brisk diuresis. Plan: Inpatient status Troponin (still waiting for results) Treat empirically for pneumonia CT of chest to rule out PE and to assess for underlying pneumonia/pleural effusion (still waiting for results) (2) Pneumonia Conclusion/Plan: I have chosen cefepime and vancomycin to start her on an immunocompromised patient with facility acquired pneumonia Today is day #2/5 I will check Vanco troughs to make sure I do not cause renal insufficiency send blood cultures have been ordered and I will follow those results to see if I need to adjust medication - As of today the cultures do not show any growth Creatinine levels are still stable. Will continue to monitor plan to transfer to nursing facility after resolution of PNA Qualifiers: Pneumonia type: due to unspecified organism Laterality: left Lung location: unspecified part of lung Qualified Code(s): J18.9 - Pneumonia, unspecified organism (3) Severe hypertension Conclusion/Plan: The cause of the sudden rise in blood pressure is unknown. This could be stress and reaction to infection that then cause a subsequent rise in blood pressure. Or did the sudden rise in blood pressure lead to sudden heart failure with pink frothy phlegm. In the emergency room she received diltiazem, nitroglycerin paste but no diuretic. Blood pressure is now down to 124/64. Echocardiogram done December 11 has an ejection fraction of 55 to 60%. Severe increase in left atrial volume index. Mild aortic regurgitation, mild mitral regurgitation, moderate tricuspid regurgitation, mildly abnormal heart pressures. The inferior Q vena cava was dilated with greater than 50% inspiratory collapse which is suggestive of an RAP of 8 mmHg. Plan: Home medications are Benicar 20, Catapres 0.1 daily, Norvasc 5 mg daily metoprolol XL 50 mg daily. All of those medications have been resumed. Substitution of Benicar with losartan 50 daily. (4) Afib Conclusion/Plan: Presents on Eliquis and metoprolol. These have been resumed. Qualifiers: Atrial fibrillation type: longstanding persistent Qualified Code(s): I48.11 - Longstanding persistent atrial fibrillation (5) Cognitive decline Conclusion/Plan: equipment [employer] plan per daughter is placement in [facility] after she finishes physical rehab (6) General weakness Conclusion/Plan: to return to rehab order PT/OT for this stay
[2023-12-20] MEDS: APIXABAN 5 MG TABLET PO SCH (21:06)
--- NOTE | 2023-12-20 23:07 | CT Report ---
PROCEDURE: Chest W INDICATIONS: new acute pna w hx of ca CONTRAST: Omni 300 100ml TECHNIQUE: After the administration of intravenous contrast, a CT scan of the chest was performed. Images were recorded and evaluated at appropriate window settings. Reformats: axial MIP of the chest, coronal and sagittal. For radiation dose reduction, the following was used: automated exposure control, adjustme nt of mA and/or kV according to patient size. COMPARISON: Chest radiograph dated 12/11/2023 and 12/19/2023. CT chest dated 03/03/2017. CT abdomen and pelvis dated 10/03/2022 FINDINGS: Image quality: Diagnostic. Chest wall and lower neck: No thyroid nodule which requires sonographic follow up. No axillary or sup raclavicular adenopathy by size. Lungs and pleura: Redemonstration of right greater than left upper lobe predominant centrilobular and paraseptal pulmonary emphysematous changes. No pneumothorax. Trace left and small-moderate right sanford ateral pleural effusions with associated compressive atelectasis. There is mild perihilar airway thic kening more pronounced on the left. Corresponding with radiographic findings, dense consolidations no marcus in the posterior left upper lobe with air bronchograms as well as the posterior left lower lobe w ith associated air bronchograms. Adjacent/peripheral groundglass opacities associated with consolidat ions. No septal nodularity. No significant septal thickening identified. No cavitary lesions. Mediastinum: Heart size is enlarged. No pericardial effusion. No large vessel abnormality. There are several prominent mediastinal lymph nodes measuring approximately 1.2 cm in short axis dimension (37/ series 2). Measured at a similar level on comparison CT dated 2016, this mediastinal lymph node measu red 0.9 cm in short axis dimension. These are likely reactive in etiology. No conglomeration of lymph nodes identified. Bones: No aggressive osseous abnormality. Stable appearance of multilevel thoracic spondylosis and ch ronic anterior compression deformity of the L1 vertebral body. Upper Abdomen: Stable hypodense lesion along the ventral aspect of the pancreatic body. Stable appear ance of right renal cortical scarring. No hydronephrosis. Renal hypodensities are again noted and lik reza representing cysts. IMPRESSION: 1. Left upper and lower lobe consolidations likely representing multifocal pneumonia with associated small left pleural effusion. There are multiple prominent mediastinal lymph nodes likely reactive in etiology. Recommend short interval follow-up chest CT 4-6 weeks after appropriate treatment and resol ution of acute symptoms to document return to baseline exam/resolution. 2. [id number] right pleural effusion with associated compressive atelectasis. 3. Cardiomegaly. 4. Stable hypodense lesion in the ventral/anterior aspect of the pancreatic body. Continued attention will be made on follow-up imaging. 5. Other chronic findings as above. Reviewed by: Martinez Mullen MD on 12/20/2023 11:05 PM PDT Approved by: Martinez Mullen MD on 12/20/2023 11:05 PM PDT Station ID: [id number]
[2023-12-21] MEDS: traZODone 50 MG TABLET PO STA (01:45)
[2023-12-21 05:39] LABS: BASOPHILS # (AUTO) 0.1 10^3/uL (0.0-0.1); BASOPHILS % (AUTO) 0.7 %; EOSINOPHILS # (AUTO) 0.5 10^3/uL (0.0-0.7); EOSINOPHILS % (AUTO) 3.8 %; HGB - HEMOGLOBIN 10.8 g/dL (12.0-16.0); LYMPHOCYTES # (AUTO) 0.9 10^3/uL (1.5-3.5); LYMPHOCYTES % (AUTO) 6.9 %; MEAN CORPUSCULAR HEMOGLOBIN 28.6 pg (27.0-31.0); MEAN CORPUSCULAR VOLUME 95.2 fL (81.0-99.0); MEAN PLATELET VOLUME 9.9 fL (7.9-10.8); MONOCYTES # (AUTO) 0.8 10^3/uL (0.0-1.0); NEUTROPHILS # (AUTO) 10.3 10^3/uL (1.5-6.6); PLT - PLATELET COUNT 243 10^3/uL (130-450); RED BLOOD COUNT 3.78 10^6/uL (4.20-5.40); RED CELL DISTRIBUTION WIDTH 18.1 % (12.0-15.0); WHITE BLOOD COUNT 12.5 x10^3/uL (4.8-10.8)
[2023-12-21 05:52] LABS: CALCIUM 8.7 mg/dL (8.5-10.3); CREATININE 0.7 mg/dL (0.6-1.3); POTASSIUM 3.8 mmol/L (3.5-4.5)
[2023-12-21] MEDS: ALBUTEROL NEB 2.5 MG/3 ML INH PRN (07:37)
[2023-12-21] MEDS: polyethylene glycoL 3350 17 GM PACKET PO SCH (08:11)
[2023-12-22 05:51] LABS: BASOPHILS # (AUTO) 0.1 10^3/uL (0.0-0.1); BASOPHILS % (AUTO) 0.7 %; EOSINOPHILS # (AUTO) 0.5 10^3/uL (0.0-0.7); EOSINOPHILS % (AUTO) 4.4 %; HCT - HEMATOCRIT 35.4 % (37.0-47.0); HGB - HEMOGLOBIN 10.9 g/dL (12.0-16.0); LYMPHOCYTES # (AUTO) 0.9 10^3/uL (1.5-3.5); MEAN CORPUSCULAR HEMOGLOBIN 28.9 pg (27.0-31.0); MEAN CORPUSCULAR HGB CONC 30.8 g/dL (32.0-36.0); MEAN CORPUSCULAR VOLUME 93.9 fL (81.0-99.0); MEAN PLATELET VOLUME 9.7 fL (7.9-10.8); MONOCYTES # (AUTO) 0.6 10^3/uL (0.0-1.0); MONOCYTES % (AUTO) 5.4 %; NEUTROPHILS # (AUTO) 9.1 10^3/uL (1.5-6.6); NEUTROPHILS % (AUTO) 80.9 %; PLT - PLATELET COUNT 261 10^3/uL (130-450); RED BLOOD COUNT 3.77 10^6/uL (4.20-5.40); WHITE BLOOD COUNT 11.2 x10^3/uL (4.8-10.8)
[2023-12-22 06:10] LABS: CREATININE 0.6 mg/dL (0.6-1.3); POTASSIUM 3.7 mmol/L (3.5-4.5)
[2023-12-22] MEDS: amLODIPine 5 MG TABLET PO SCH (09:30)
--- NOTE | 2023-12-22 14:14 | PROVIDER PROGRESS NOTE ---
Assessment/Plan - Problem List (1) Acute respiratory failure with hypoxia Assessment/Plan: --CT chest showing left upper and lower lobe consolidation representing multifocal pneumonia. Small left pleural effusion. Small moderate right sided pleural effusion. Recommend CT chest in 4 to 6 weeks to ensure resolution. --Currently on IV antibiotics with cefepime and vancomycin. --Requiring 2 L of oxygen via nasal cannula. She would likely need this 24 hours a day. Patient was not wearing any oxygen at home prior to coming to the hospital. She had been given oxygen while she was in the group home however. (2) Pneumonia Qualifiers: Pneumonia type: due to unspecified organism Laterality: bilateral Lung location: lower lobe of lung Qualified Code(s): J18.9 - Pneumonia, unspecified organism Assessment/Plan: --As mentioned above, continue IV antibiotics. Cultures are currently pending. (3) Severe hypertension Assessment/Plan: --Continue home antihypertensives. Her blood pressures have stabilized since yesterday. (4) Afib Qualifiers: Atrial fibrillation type: longstanding persistent Qualified Code(s): I48.11 - Longstanding persistent atrial fibrillation Assessment/Plan: --Continue but continue Eliquis and metoprolol. (5) Cognitive decline Assessment/Plan: --Long-term plan is to place patient in an assisted living facility after she finishes physical therapy. - Current Meds Current Meds: Current Medications Generic Name Dose Route Start Last Admin Trade Name Freq PRN Reason Stop Dose Admin Albuterol 2.5 mg 12/19/23 07:36 12/22/23 07:51 Albuterol Neb 2.5 Mg/3 Ml INH 2.5 mg Q4HR PRN Administration Wheezing Amlodipine Besylate 10 mg 12/22/23 09:00 12/22/23 09:30 Amlodipine 5 Mg Tablet PO 5 mg DAILY [facility] Administration Apixaban 5 mg 12/20/23 21:00 12/22/23 09:30 Apixaban 5 Mg Tablet PO 5 mg BID [facility] Administration Atorvastatin Calcium 10 mg 12/19/23 21:00 12/21/23 20:44 Atorvastatin 10 Mg Tablet PO 10 mg QPM [facility] Administration Cholecalciferol 25 mcg 12/20/23 09:00 12/22/23 09:30 Cholecalciferol 25 Mcg Tablet PO 25 mcg DAILY [facility] Administration Clonidine HCl 0.1 mg 12/20/23 09:00 12/22/23 07:02 Clonidine 0.1 Mg Tablet PO 0.1 mg DAILY [facility] Administration Cyanocobalamin 500 mcg 12/20/23 09:00 12/22/23 09:30 Cyanocobalamin 500 Mcg Tablet PO 500 mcg DAILY [facility] Administration Cefepime HCl 2 gm/ Sodium 100 mls @ 200 mls/hr 12/19/23 14:00 12/22/23 06:03 Chloride IV 12/26/23 13:59 Infused Q8HR [facility] Infusion Vancomycin HCl 1 gm/ Sodium 250 mls @ 167 mls/hr 12/20/23 09:00 12/22/23 12:02 Chloride IV Infused Q24H [facility] Infusion Levothyroxine Sodium 75 mcg 12/20/23 09:00 12/22/23 09:30 Levothyroxine 75 Mcg Tablet PO 75 mcg DAILY [facility] Administration Losartan Potassium 50 mg 12/20/23 09:00 12/22/23 07:02 Losartan 50 Mg Tablet PO 50 mg DAILY [facility] Administration Metoprolol Succinate 50 mg 12/19/23 11:53 12/21/23 20:44 Metoprolol Succinate 50 Mg Tablet PO 50 mg QPM [facility] Administration Ondansetron HCl 4 mg 12/19/23 07:33 12/19/23 08:54 Ondansetron Odt 4 Mg Tablet TL 4 mg Q6HR PRN Administration Nausea / Vomiting Polyethylene Glycol 17 gm 12/21/23 09:00 12/22/23 09:29 Polyethylene Glycol 3350 17 Gm Packet PO 17 gm DAILY [facility] Administration Multivit/Folic Acid/Iron 1 tab 12/20/23 08:00 12/22/23 09:30 Vitamin Tablet PO 1 tab DAILYWM [facility] Administration Saccharomyces Boulardii 250 mg 12/19/23 08:00 12/22/23 09:30 Saccharomyces Boulardii 250 Mg Capsule PO 250 mg BIDWM [facility] Administration Sodium Chloride 10 ml 12/19/23 09:00 12/22/23 09:29 Sodium Chloride Flush 0.9% 10 Ml Syringe IVP 10 ml 0100,0900,1700 [facility] Administration Triamcinolone Acetonide 1 applic 12/19/23 21:00 12/22/23 09:29 Triamcinolone 0.5% Cream 15 Gm Tube TOP 1 applic BID [facility] Administration - Lab Result Fish Bone Diagrams: 12/22/23 05:35 12/22/23 05:35 - Additional Planning My Orders: My Active Orders 12/22/23 09:00 amLODIPine [Norvasc] 10 mg PO DAILY Subjective - Subjective Patient Reports: Feeling Better, Resting Comfortably, No Complaints Objective Vital Signs: Vital Signs - 24 hr 12/21/23 12/21/23 12/21/23 15:21 20:04 21:20 Temperature 37.1 C 37.2 C Heart Rate Heart Rate [ Brachial] Heart Rate [ 80 79 Monitoring electrodes] Respiratory 20 18 Rate Blood Pressure 146/83 H [Left Brachial artery] Blood Pressure 142/87 H [Right] O2 Saturation 92 93 If not protocol 4 4 4 : Oxygen Flow, liters/minute 12/21/23 12/21/23 12/22/23 23:40 23:42 05:32 Temperature 36.7 C 36.7 C Heart Rate Heart Rate [ 90 100 Brachial] Heart Rate [ Monitoring electrodes] Respiratory 20 20 Rate Blood Pressure 165/100 H [Left Brachial artery] Blood Pressure 158/95 H [Right] O2 Saturation 88 L 93 91 L If not protocol 4 5 5 : Oxygen Flow, liters/minute 12/22/23 12/22/23 12/22/23 06:00 07:28 07:52 Temperature 36.6 C Heart Rate 88 Heart Rate [ 84 92 Brachial] Heart Rate [ Monitoring electrodes] Respiratory 18 20 Rate Blood Pressure 158/106 H [Left Brachial artery] Blood Pressure 159/111 H [Right] O2 Saturation 94 If not protocol 5 5 : Oxygen Flow, liters/minute 12/22/23 08:40 Temperature 36.5 C Heart Rate Heart Rate [ 95 Brachial] Heart Rate [ Monitoring electrodes] Respiratory 18 Rate Blood Pressure [Left Brachial artery] Blood Pressure 138/90 H [Right] O2 Saturation 91 L If not protocol 2 : Oxygen Flow, liters/minute Oxygen O2 Source Nasal cannula Oxygen Flow Rate 2 I&O (Last 24 Hrs): Intake and Output Totals x24h 12/20/23 12/21/23 12/22/23 23:59 23:59 23:59 Intake Total 4308.45 2040.167 880 Output Total 433 141 4503 Balance 3543.45 1440.167 -970 General: Alert, Oriented x3 Neuro: Alert Cardiovascular: Regular rate, Normal S1, Normal S2 Respiratory: No respiratory distress Abdomen: Normal bowel sounds, Soft - Results Results: Laboratory Results WBC 11.2 x10^3/uL (4.8-10.8) H 12/22/23 05:35 RBC 3.77 10^6/uL (4.20-5.40) L 12/22/23 05:35 Hgb 10.9 g/dL (12.0-16.0) L 12/22/23 05:35 Hct 35.4 % (37.0-47.0) L 12/22/23 05:35 MCV 93.9 fL (81.0-99.0) 12/22/23 05:35 MCH 28.9 pg (27.0-31.0) 12/22/23 05:35 MCHC 30.8 g/dL (32.0-36.0) L 12/22/23 05:35 RDW 18.0 % (12.0-15.0) H 12/22/23 05:35 Plt Count 261 10^3/uL (130-450) 12/22/23 05:35 MPV 9.7 fL (7.9-10.8) 12/22/23 05:35 Neut # (Auto) 9.1 10^3/uL (1.5-6.6) H 12/22/23 05:35 Lymph # (Auto) 0.9 10^3/uL (1.5-3.5) L 12/22/23 05:35 Duchesne # (Auto) 0.6 10^3/uL (0.0-1.0) 12/22/23 05:35 Eos # (Auto) 0.5 10^3/uL (0.0-0.7) 12/22/23 05:35 Baso # (Auto) 0.1 10^3/uL (0.0-0.1) 12/22/23 05:35 Absolute Nucleated RBC 0.00 x10^3/uL 12/22/23 05:35 Nucleated RBC % 0.0 /100WBC 12/22/23 05:35 Bld Gas Analysis Time 0700 12/19/23 06:57 Sample Site RIGHT RADIAL 12/19/23 06:57 ABG pH 7.46 (7.35-7.45) H 12/19/23 06:57 ABG pCO2 28 mmHg (34-45) L 12/19/23 06:57 ABG pO2 65 mmHg (80-100) L 12/19/23 06:57 ABG HCO3 19.4 mmol/L (22.0-26.0) L 12/19/23 06:57 ABG Total CO2 20.3 MMOL/L (21.0-29.0) L 12/19/23 06:57 ABG O2 Saturation 92 % (94-98) L 12/19/23 06:57 ABG Base Excess -3.5 mmol/L (-2.0-3.0) L 12/19/23 06:57 Joe Test POSITIVE 12/19/23 06:57 O2 Delivery Device BiPAP 12/19/23 06:57 FiO2 100.00 12/19/23 06:57 EPAP 4 cmH2O 12/19/23 06:57 IPAP 10 cmH2O 12/19/23 06:57 Sodium 136 mmol/L (135-145) 12/22/23 05:35 Potassium 3.7 mmol/L (3.5-4.5) 12/22/23 05:35 Chloride 107 mmol/L (101-111) 12/22/23 05:35 Carbon Dioxide 23 mmol/L (21-32) 12/22/23 05:35 Anion Gap 6.0 (6-13) 12/22/23 05:35 BUN 15 mg/dL (6-20) 12/22/23 05:35 Creatinine 0.6 mg/dL (0.6-1.3) 12/22/23 05:35 Estimated GFR (MDRD) 95 (>89) 12/22/23 05:35 Glucose 92 mg/dL (74-104) 12/22/23 05:35 Calcium 9.0 mg/dL (8.5-10.3) 12/22/23 05:35 Total Bilirubin 1.1 mg/dL (0.2-1.0) H 12/19/23 05:51 AST 43 IU/L (10-42) H 12/19/23 05:51 ALT 30 IU/L (10-60) 12/19/23 05:51 Alkaline Phosphatase 153 IU/L (42-121) H 12/19/23 05:51 Total Protein 7.8 g/dL (6.4-8.9) 12/19/23 05:51 Albumin 4.3 g/dL (3.2-5.5) 12/19/23 05:51 Globulin 3.5 g/dL (2.1-4.2) 12/19/23 05:51 Albumin/Globulin Ratio 1.2 (1.0-2.2) 12/19/23 05:51 Lipase 37 U/L (11-82) 12/19/23 05:51 Nasal Adenovirus (PCR) NOT DETECTED 12/19/23 05:55 Nasal B. parapertussis DNA (PCR) NOT DETECTED 12/19/23 05:55 Nasal Coronavir 229E PCR NOT DETECTED 12/19/23 05:55 Nasal Coronavir HKU1 PCR NOT DETECTED 12/19/23 05:55 Nasal Coronavir NL63 PCR NOT DETECTED 12/19/23 05:55 Nasal Coronavir OC43 PCR NOT DETECTED 12/19/23 05:55 Nasal Enterovir/Rhinovir PCR NOT DETECTED 12/19/23 05:55 Nasal Influenza B PCR NOT DETECTED 12/19/23 05:55 Nasal Influenza A PCR NOT DETECTED 12/19/23 05:55 Nasal Parainfluen 1 PCR NOT DETECTED 12/19/23 05:55 Nasal Parainfluen 2 PCR NOT DETECTED 12/19/23 05:55 Nasal Parainfluen 3 PCR NOT DETECTED 12/19/23 05:55 Nasal Parainfluen 4 PCR NOT DETECTED 12/19/23 05:55 Nasal RSV (PCR) NOT DETECTED 12/19/23 05:55 Nasal Screen MRSA (PCR) NEGATIVE (NEGATIVE) 12/19/23 08:40 Nasal B.pertussis DNA PCR NOT DETECTED 12/19/23 05:55 Nasal C.pneumoniae (PCR) NOT DETECTED 12/19/23 05:55 Tom Human Metapneumo PCR NOT DETECTED 12/19/23 05:55 Nasal M.pneumoniae (PCR) NOT DETECTED 12/19/23 05:55 Nasal SARS-CoV-2 (PCR) NOT DETECTED 12/19/23 05:55 Blood Type A POSITIVE 12/20/23 08:07 Antibody Screen NEGATIVE 12/20/23 08:07 Crossmatch IS Only See Detail 12/20/23 08:07 - Procedures Procedures: Procedures CONTROL BLEEDING IN GASTROINTESTINAL TRACT, ENDO (03/02/17) EXCISION OF ESOPHAGOGASTRIC JUNCTION, ENDO, DIAGN (03/02/17) EXCISION OF SIGMOID COLON, ENDO, DIAGN (03/02/17) EXCISION OF STOMACH, ENDO, DIAGN (03/02/17) EXCISION OF STOMACH, PYLORUS, ENDO, DIAGN (03/02/17) RESECTION OF RECTUM, OPEN APPROACH (03/08/17) RESECTION OF SIGMOID COLON, OPEN APPROACH (03/08/17) TRANSFUSE NONAUT RED BLOOD CELLS IN PERIPH VEIN, PERC (12/11/23) Sepsis Event Note (H) - Evaluation Current Stage of Sepsis: Ruled out
[2023-12-23 05:49] LABS: VANCOMYCIN,TROUGH 11.5 ug/mL
[2023-12-23] MEDS ORDERED: VANCOMYCIN INJ 1 GM in SODIUM CHLORIDE 0.9% 250 ML IV SCH (12:04)
--- NOTE | 2023-12-23 12:20 | PROVIDER PROGRESS NOTE ---
Assessment/Plan - Problem List (1) Acute respiratory failure with hypoxia Assessment/Plan: (1) Acute respiratory failure with hypoxia Assessment/Plan: --CT chest showing left upper and lower lobe consolidation representing multifocal pneumonia. Small left pleural effusion. Small moderate right sided pleural effusion. Recommend CT chest in 4 to 6 weeks to ensure resolution. --Currently on IV antibiotics with cefepime and vancomycin. Will deescalate in next 24 hours. --Requiring 2 L of oxygen via nasal cannula. She would likely need this 24 hours a day. Patient was not wearing any oxygen at home prior to coming to the hospital. She had been given oxygen while she was in the [facility] however. (2) Pneumonia Qualifiers: Pneumonia type: due to unspecified organism Laterality: bilateral Lung location: lower lobe of lung Qualified Code(s): J18.9 - Pneumonia, unspecified organism Assessment/Plan: --As mentioned above, continue IV antibiotics. Cultures are currently pending. (3) Severe hypertension Assessment/Plan: --Continue home antihypertensives. Her blood pressures have stabilized since yesterday. (4) Afib Qualifiers: Atrial fibrillation type: longstanding persistent Qualified Code(s): I48.11 - Longstanding persistent atrial fibrillation Assessment/Plan: --Continue but continue Eliquis and metoprolol. (5) Cognitive decline Assessment/Plan: --Long-term plan is to place patient in an assisted living facility after she finishes physical therapy. Anticipate discharge in next 24-48 hours. (2) Pneumonia Qualifiers: Pneumonia type: due to unspecified organism Laterality: bilateral Lung location: lower lobe of lung Qualified Code(s): J18.9 - Pneumonia, unspecified organism (4) Afib Qualifiers: Atrial fibrillation type: longstanding persistent Qualified Code(s): I48.11 - Longstanding persistent atrial fibrillation - Current Meds Current Meds: Current Medications Generic Name Dose Route Start Last Admin Trade Name Freq PRN Reason Stop Dose Admin Albuterol 2.5 mg 12/19/23 07:36 12/22/23 07:51 Albuterol Neb 2.5 Mg/3 Ml INH 2.5 mg Q4HR PRN Administration Wheezing Amlodipine Besylate 10 mg 12/22/23 09:00 12/23/23 08:15 Amlodipine 5 Mg Tablet PO 10 mg DAILY LENKA Administration Apixaban 5 mg 12/20/23 21:00 12/23/23 08:16 Apixaban 5 Mg Tablet PO 5 mg BID LENKA Administration Atorvastatin Calcium 10 mg 12/19/23 21:00 12/22/23 21:22 Atorvastatin 10 Mg Tablet PO 10 mg QPM LENKA Administration Cholecalciferol 25 mcg 12/20/23 09:00 12/23/23 08:16 Cholecalciferol 25 Mcg Tablet PO 25 mcg DAILY LENKA Administration Clonidine HCl 0.1 mg 12/20/23 09:00 12/23/23 08:16 Clonidine 0.1 Mg Tablet PO 0.1 mg DAILY LENKA Administration Cyanocobalamin 500 mcg 12/20/23 09:00 12/23/23 08:16 Cyanocobalamin 500 Mcg Tablet PO 500 mcg DAILY LENKA Administration Cefepime HCl 2 gm/ Sodium 100 mls @ 200 mls/hr 12/19/23 14:00 12/23/23 07:48 Chloride IV 12/26/23 13:59 Infused Q8HR LENKA Infusion Levothyroxine Sodium 75 mcg 12/20/23 09:00 12/23/23 08:15 Levothyroxine 75 Mcg Tablet PO 75 mcg DAILY LENKA Administration Losartan Potassium 50 mg 12/20/23 09:00 12/23/23 08:16 Losartan 50 Mg Tablet PO 50 mg DAILY LENKA Administration Metoprolol Succinate 50 mg 12/19/23 11:53 12/22/23 21:22 Metoprolol Succinate 50 Mg Tablet PO 50 mg QPM LENKA Administration Ondansetron HCl 4 mg 12/19/23 07:33 12/19/23 08:54 Ondansetron Odt 4 Mg Tablet TL 4 mg Q6HR PRN Administration Nausea / Vomiting Polyethylene Glycol 17 gm 12/21/23 09:00 12/23/23 08:16 Polyethylene Glycol 3350 17 Gm Packet PO Not Given DAILY [facility] Multivit/Folic Acid/Iron 1 tab 12/20/23 08:00 12/23/23 08:16 Vitamin Tablet PO 1 tab DAILYWM LENKA Administration Saccharomyces Boulardii 250 mg 12/19/23 08:00 12/23/23 08:16 Saccharomyces Boulardii 250 Mg Capsule PO 250 mg BIDWM LENKA Administration Sodium Chloride 10 ml 12/19/23 09:00 12/23/23 08:16 Sodium Chloride Flush 0.9% 10 Ml Syringe IVP 10 ml 0100,0900,1700 LENKA Administration Triamcinolone Acetonide 1 applic 12/19/23 21:00 12/23/23 09:07 Triamcinolone 0.5% Cream 15 Gm Tube TOP 1 applic BID LENKA Administration - Lab Result Fish Bone Diagrams: 12/22/23 05:35 12/22/23 05:35 - Additional Planning My Orders: My Active Orders 12/23/23 21:00 Vancomycin Inj [Vancomycin] 1 gm Sodium Chloride 0.9% [Normal Saline 0.9%] 250 ml IV Q12H 12/24/23 05:00 BMP - BASIC METABOLIC PANEL [CHEM] DAILYLAB CBC [CBC - COMP BLD CT W/AUTO DIFF] [HEME] DAILYLAB 12/25/23 05:00 BMP - BASIC METABOLIC PANEL [CHEM] DAILYLAB CBC [CBC - COMP BLD CT W/AUTO DIFF] [HEME] DAILYLAB 12/26/23 05:00 BMP - BASIC METABOLIC PANEL [CHEM] DAILYLAB CBC [CBC - COMP BLD CT W/AUTO DIFF] [HEME] DAILYLAB 12/27/23 05:00 BMP - BASIC METABOLIC PANEL [CHEM] DAILYLAB CBC [CBC - COMP BLD CT W/AUTO DIFF] [HEME] DAILYLAB 12/28/23 05:00 BMP - BASIC METABOLIC PANEL [CHEM] DAILYLAB CBC [CBC - COMP BLD CT W/AUTO DIFF] [HEME] DAILYLAB Subjective - Subjective Patient Reports: Feeling Better, Resting Comfortably, No Complaints (Updated family on plan of care.) Objective Vital Signs: Vital Signs - 24 hr 12/22/23 12/22/23 12/22/23 13:00 16:33 23:58 Temperature 36.7 C 36.7 C 36.5 C Heart Rate [ 87 77 85 Brachial] Respiratory 16 18 16 Rate Blood Pressure 135/83 H 154/91 H 152/90 H [Right] O2 Saturation 93 92 95 If not protocol 2 3 3 : Oxygen Flow, liters/minute 12/23/23 12/23/23 07:34 12:02 Temperature 37.1 C 36.6 C Heart Rate [ 102 H 92 Brachial] Respiratory 18 16 Rate Blood Pressure 137/93 H 149/98 H [Right] O2 Saturation 93 92 If not protocol 3 3 : Oxygen Flow, liters/minute Oxygen O2 Source Nasal cannula Oxygen Flow Rate 2 I&O (Last 24 Hrs): Intake and Output Totals x24h 12/21/23 12/22/23 12/23/23 23:59 23:59 23:59 Intake Total 2040.167 2050 830 Output Total 600 1850 Balance 1440.167 200 830 General: Alert, Oriented x3 Cardiovascular: Regular rate, Normal S1, Normal S2 Respiratory: Breath sounds nml - Results Results: Laboratory Results WBC 11.2 x10^3/uL (4.8-10.8) H 12/22/23 05:35 RBC 3.77 10^6/uL (4.20-5.40) L 12/22/23 05:35 Hgb 10.9 g/dL (12.0-16.0) L 12/22/23 05:35 Hct 35.4 % (37.0-47.0) L 12/22/23 05:35 MCV 93.9 fL (81.0-99.0) 12/22/23 05:35 MCH 28.9 pg (27.0-31.0) 12/22/23 05:35 MCHC 30.8 g/dL (32.0-36.0) L 12/22/23 05:35 RDW 18.0 % (12.0-15.0) H 12/22/23 05:35 Plt Count 261 10^3/uL (130-450) 12/22/23 05:35 MPV 9.7 fL (7.9-10.8) 12/22/23 05:35 Neut # (Auto) 9.1 10^3/uL (1.5-6.6) H 12/22/23 05:35 Lymph # (Auto) 0.9 10^3/uL (1.5-3.5) L 12/22/23 05:35 [place] # (Auto) 0.6 10^3/uL (0.0-1.0) 12/22/23 05:35 Eos # (Auto) 0.5 10^3/uL (0.0-0.7) 12/22/23 05:35 Baso # (Auto) 0.1 10^3/uL (0.0-0.1) 12/22/23 05:35 Absolute Nucleated RBC 0.00 x10^3/uL 12/22/23 05:35 Nucleated RBC % 0.0 /100WBC 12/22/23 05:35 Bld Gas Analysis Time 0700 12/19/23 06:57 Sample Site RIGHT RADIAL 12/19/23 06:57 ABG pH 7.46 (7.35-7.45) H 12/19/23 06:57 ABG pCO2 28 mmHg (34-45) L 12/19/23 06:57 ABG pO2 65 mmHg (80-100) L 12/19/23 06:57 ABG HCO3 19.4 mmol/L (22.0-26.0) L 12/19/23 06:57 ABG Total CO2 20.3 MMOL/L (21.0-29.0) L 12/19/23 06:57 ABG O2 Saturation 92 % (94-98) L 12/19/23 06:57 ABG Base Excess -3.5 mmol/L (-2.0-3.0) L 12/19/23 06:57 Joe Test POSITIVE 12/19/23 06:57 O2 Delivery Device BiPAP 12/19/23 06:57 FiO2 100.00 12/19/23 06:57 EPAP 4 cmH2O 12/19/23 06:57 IPAP 10 cmH2O 12/19/23 06:57 Sodium 136 mmol/L (135-145) 12/22/23 05:35 Potassium 3.7 mmol/L (3.5-4.5) 12/22/23 05:35 Chloride 107 mmol/L (101-111) 12/22/23 05:35 Carbon Dioxide 23 mmol/L (21-32) 12/22/23 05:35 Anion Gap 6.0 (6-13) 12/22/23 05:35 BUN 15 mg/dL (6-20) 12/22/23 05:35 Creatinine 0.6 mg/dL (0.6-1.3) 12/22/23 05:35 Estimated GFR (MDRD) 95 (>89) 12/22/23 05:35 Glucose 92 mg/dL (74-104) 12/22/23 05:35 Calcium 9.0 mg/dL (8.5-10.3) 12/22/23 05:35 Total Bilirubin 1.1 mg/dL (0.2-1.0) H 12/19/23 05:51 AST 43 IU/L (10-42) H 12/19/23 05:51 ALT 30 IU/L (10-60) 12/19/23 05:51 Alkaline Phosphatase 153 IU/L (42-121) H 12/19/23 05:51 Total Protein 7.8 g/dL (6.4-8.9) 12/19/23 05:51 Albumin 4.3 g/dL (3.2-5.5) 12/19/23 05:51 Globulin 3.5 g/dL (2.1-4.2) 12/19/23 05:51 Albumin/Globulin Ratio 1.2 (1.0-2.2) 12/19/23 05:51 Lipase 37 U/L (11-82) 12/19/23 05:51 Procalcitonin Immunoas 1.49 ng/mL (<0.5) H 12/23/23 05:10 Nasal Adenovirus (PCR) NOT DETECTED 12/19/23 05:55 Nasal B. parapertussis DNA (PCR) NOT DETECTED 12/19/23 05:55 Nasal Coronavir 229E PCR NOT DETECTED 12/19/23 05:55 Nasal Coronavir HKU1 PCR NOT DETECTED 12/19/23 05:55 Nasal Coronavir NL63 PCR NOT DETECTED 12/19/23 05:55 Nasal Coronavir OC43 PCR NOT DETECTED 12/19/23 05:55 Nasal Enterovir/Rhinovir PCR NOT DETECTED 12/19/23 05:55 Nasal Influenza B PCR NOT DETECTED 12/19/23 05:55 Nasal Influenza A PCR NOT DETECTED 12/19/23 05:55 Nasal Parainfluen 1 PCR NOT DETECTED 12/19/23 05:55 Nasal Parainfluen 2 PCR NOT DETECTED 12/19/23 05:55 Nasal Parainfluen 3 PCR NOT DETECTED 12/19/23 05:55 Nasal Parainfluen 4 PCR NOT DETECTED 12/19/23 05:55 Nasal RSV (PCR) NOT DETECTED 12/19/23 05:55 Nasal Screen MRSA (PCR) NEGATIVE (NEGATIVE) 12/19/23 08:40 Nasal B.pertussis DNA PCR NOT DETECTED 12/19/23 05:55 Nasal C.pneumoniae (PCR) NOT DETECTED 12/19/23 05:55 Tom Human Metapneumo PCR NOT DETECTED 12/19/23 05:55 Nasal M.pneumoniae (PCR) NOT DETECTED 12/19/23 05:55 Nasal SARS-CoV-2 (PCR) NOT DETECTED 12/19/23 05:55 Last Dose Date 12-22-23 12/23/23 05:10 Last Dose Time 1202 12/23/23 05:10 Vancomycin Trough 11.5 ug/mL 12/23/23 05:10 Blood Type A POSITIVE 12/20/23 08:07 Antibody Screen NEGATIVE 12/20/23 08:07 Crossmatch IS Only See Detail 12/20/23 08:07 - Procedures Procedures: Procedures CONTROL BLEEDING IN GASTROINTESTINAL TRACT, ENDO (03/02/17) EXCISION OF ESOPHAGOGASTRIC JUNCTION, ENDO, DIAGN (03/02/17) EXCISION OF SIGMOID COLON, ENDO, DIAGN (03/02/17) EXCISION OF STOMACH, ENDO, DIAGN (03/02/17) EXCISION OF STOMACH, PYLORUS, ENDO, DIAGN (03/02/17) RESECTION OF RECTUM, OPEN APPROACH (03/08/17) RESECTION OF SIGMOID COLON, OPEN APPROACH (03/08/17) TRANSFUSE NONAUT RED BLOOD CELLS IN PERIPH VEIN, PERC (12/11/23) Sepsis Event Note (H) - Evaluation Current Stage of Sepsis: Ruled out ABX Reporting Has patient been on IV antibiotics over the past 48 hours?: Yes
--- NOTE | 2023-12-23 14:19 | PHARMACY PROGRESS NOTE ---
- Therapy Status Vancomycin regimen day #: 5 Therapy status: Trough supratherapeutic Basis for treatment: Empirical Treatment indication: HCAP Trough goal: AUC/DARLENE 400-600 Concurrent antibiotics: CEFEPIME - MATIAS Risk Risk level for Acute Kidney Injury: High Acute Kidney Injury risk factors: Other nephrotoxic agents, Duration >7 days, Goal trough >15 - Monitoring and Recommendation Clinical response to treatment: Lab Results 12/19/23 05:51 BUN 24 H Creatinine 0.7 Estimated GFR (MDRD) 80 L Cultures 12/19/23 06:18 Blood - Left Hand Blood Culture - Preliminary NO GROWTH AFTER 2 DAYS 12/19/23 06:18 Blood - Right Hand Blood Culture - Preliminary NO GROWTH AFTER 2 DAYS Areas for additional monitoring: IV to PO when appropriate, Therapy de- escalation based on culture results, Acute Kidney Injury Pharmacy recommendation: Increase dose (MATIAS RESOLVED. INCREASE DOSE TO 1G Q12H TO TARGET HIGHER AUC. ANTICIPATE DISCHARGE THIS WEEKEND.)
[2023-12-23] MEDS: VANCOMYCIN INJ 1 GM in SODIUM CHLORIDE 0.9% 250 ML IV SCH (21:24)
[2023-12-23] MEDS: SODIUM CHLORIDE FLUSH 0.9% 10 ML SYRINGE IVP PRN (21:48)
[2023-12-24] MEDS ORDERED: SODIUM CHLORIDE 0.9% MINIBAG 100 ML IV ONE (04:36)
[2023-12-24 05:30] LABS: BASOPHILS # (AUTO) 0.1 10^3/uL (0.0-0.1); BASOPHILS % (AUTO) 1.2 %; EOSINOPHILS # (AUTO) 0.4 10^3/uL (0.0-0.7); EOSINOPHILS % (AUTO) 4.8 %; HCT - HEMATOCRIT 36.1 % (37.0-47.0); HGB - HEMOGLOBIN 11.1 g/dL (12.0-16.0); LYMPHOCYTES % (AUTO) 11.5 %; MEAN CORPUSCULAR HEMOGLOBIN 28.5 pg (27.0-31.0); MEAN CORPUSCULAR HGB CONC 30.7 g/dL (32.0-36.0); MEAN CORPUSCULAR VOLUME 92.8 fL (81.0-99.0); MEAN PLATELET VOLUME 9.3 fL (7.9-10.8); MONOCYTES # (AUTO) 0.7 10^3/uL (0.0-1.0); MONOCYTES % (AUTO) 7.5 %; NEUTROPHILS # (AUTO) 6.6 10^3/uL (1.5-6.6); NEUTROPHILS % (AUTO) 74.3 %; PLT - PLATELET COUNT 259 10^3/uL (130-450); RED BLOOD COUNT 3.89 10^6/uL (4.20-5.40); RED CELL DISTRIBUTION WIDTH 18.1 % (12.0-15.0); WHITE BLOOD COUNT 8.9 x10^3/uL (4.8-10.8)
[2023-12-24 05:47] LABS: CALCIUM 9.1 mg/dL (8.5-10.3); CREATININE 0.5 mg/dL (0.6-1.3); POTASSIUM 3.4 mmol/L (3.5-4.5)
--- NOTE | 2023-12-24 08:35 | PROVIDER PROGRESS NOTE ---
Assessment/Plan - Problem List (1) Acute respiratory failure with hypoxia Assessment/Plan: Assessment/Plan: (1) Acute respiratory failure with hypoxia Assessment/Plan: --CT chest showing left upper and lower lobe consolidation representing multifocal pneumonia. Small left pleural effusion. Small moderate right sided pleural effusion. Recommend CT chest in 4 to 6 weeks to ensure resolution. --Currently on IV antibiotics with cefepime and vancomycin. Will deescalate in next 24 hours. --Requiring 2 L of oxygen via nasal cannula. She would likely need this 24 hours a day. Patient was not wearing any oxygen at home prior to coming to the hospital. She had been given oxygen while she was in the [facility] however. (2) Pneumonia Qualifiers: Pneumonia type: due to unspecified organism Laterality: bilateral Lung location: lower lobe of lung Qualified Code(s): J18.9 - Pneumonia, unspecified organism Assessment/Plan: --As mentioned above, continue IV antibiotics. Cultures are currently pending. (3) Severe hypertension Assessment/Plan: --Continue home antihypertensives. Her blood pressures have stabilized since yesterday. (4) Afib Qualifiers: Atrial fibrillation type: longstanding persistent Qualified Code(s): I48.11 - Longstanding persistent atrial fibrillation Assessment/Plan: --Continue but continue Eliquis and metoprolol. (5) Cognitive decline Assessment/Plan: --Long-term plan is to place patient in an assisted living facility after she finishes physical therapy. Anticipate discharge in next 24-48 hours. Pending insurance authorization. (2) Pneumonia Qualifiers: Pneumonia type: due to unspecified organism Laterality: bilateral Lung location: lower lobe of lung Qualified Code(s): J18.9 - Pneumonia, unspecified organism (4) Afib Qualifiers: Atrial fibrillation type: longstanding persistent Qualified Code(s): I48.11 - Longstanding persistent atrial fibrillation - Current Meds Current Meds: Current Medications Generic Name Dose Route Start Last Admin Trade Name Freq PRN Reason Stop Dose Admin Albuterol 2.5 mg 12/19/23 07:36 12/22/23 07:51 Albuterol Neb 2.5 Mg/3 Ml INH 2.5 mg Q4HR PRN Administration Wheezing Amlodipine Besylate 10 mg 12/22/23 09:00 12/23/23 08:15 Amlodipine 5 Mg Tablet PO 10 mg DAILY LENKA Administration Apixaban 5 mg 12/20/23 21:00 12/23/23 21:23 Apixaban 5 Mg Tablet PO 5 mg BID LENKA Administration Atorvastatin Calcium 10 mg 12/19/23 21:00 12/23/23 21:24 Atorvastatin 10 Mg Tablet PO 10 mg QPM LENKA Administration Cholecalciferol 25 mcg 12/20/23 09:00 12/23/23 08:16 Cholecalciferol 25 Mcg Tablet PO 25 mcg DAILY LENKA Administration Clonidine HCl 0.1 mg 12/20/23 09:00 12/23/23 08:16 Clonidine 0.1 Mg Tablet PO 0.1 mg DAILY LENKA Administration Cyanocobalamin 500 mcg 12/20/23 09:00 12/23/23 08:16 Cyanocobalamin 500 Mcg Tablet PO 500 mcg DAILY LENKA Administration Cefepime HCl 2 gm/ Sodium 100 mls @ 200 mls/hr 12/19/23 14:00 12/24/23 06:05 Chloride IV 12/26/23 13:59 Infused Q8HR LENKA Infusion Vancomycin HCl 1 gm/ Sodium 250 mls @ 167 mls/hr 12/23/23 21:00 12/23/23 22:54 Chloride IV Infused Q12H LENKA Infusion Levothyroxine Sodium 75 mcg 12/20/23 09:00 12/23/23 08:15 Levothyroxine 75 Mcg Tablet PO 75 mcg DAILY LENKA Administration Losartan Potassium 50 mg 12/20/23 09:00 12/23/23 08:16 Losartan 50 Mg Tablet PO 50 mg DAILY LENKA Administration Metoprolol Succinate 50 mg 12/19/23 11:53 12/23/23 21:23 Metoprolol Succinate 50 Mg Tablet PO 50 mg QPM LENKA Administration Ondansetron HCl 4 mg 12/19/23 07:33 12/19/23 08:54 Ondansetron Odt 4 Mg Tablet TL 4 mg Q6HR PRN Administration Nausea / Vomiting Polyethylene Glycol 17 gm 12/21/23 09:00 12/23/23 08:16 Polyethylene Glycol 3350 17 Gm Packet PO Not Given DAILY LENKA Multivit/Folic Acid/Iron 1 tab 12/20/23 08:00 12/23/23 08:16 Vitamin Tablet PO 1 tab DAILYWM LENKA Administration Saccharomyces Boulardii 250 mg 12/19/23 08:00 12/23/23 16:53 Saccharomyces Boulardii 250 Mg Capsule PO 250 mg BIDWM LENKA Administration Sodium Chloride 10 ml 12/19/23 07:33 12/23/23 21:48 Sodium Chloride Flush 0.9% 10 Ml Syringe IVP 10 ml PRN PRN Administration NEEDED PER PROVIDER ORDERS Sodium Chloride 10 ml 12/19/23 09:00 12/24/23 05:36 Sodium Chloride Flush 0.9% 10 Ml Syringe IVP 10 ml 0100,0900,1700 LENKA Administration Triamcinolone Acetonide 1 applic 12/19/23 21:00 12/23/23 21:23 Triamcinolone 0.5% Cream 15 Gm Tube TOP 1 applic BID LENKA Administration - Lab Result Fish Bone Diagrams: 12/24/23 05:20 12/24/23 05:20 - Additional Planning My Orders: My Active Orders 12/23/23 21:00 Vancomycin Inj [Vancomycin] 1 gm Sodium Chloride 0.9% [Normal Saline 0.9%] 250 ml IV Q12H 12/25/23 05:00 BMP - BASIC METABOLIC PANEL [CHEM] DAILYLAB CBC [CBC - COMP BLD CT W/AUTO DIFF] [HEME] DAILYLAB 12/26/23 05:00 BMP - BASIC METABOLIC PANEL [CHEM] DAILYLAB CBC [CBC - COMP BLD CT W/AUTO DIFF] [HEME] DAILYLAB 12/27/23 05:00 BMP - BASIC METABOLIC PANEL [CHEM] DAILYLAB CBC [CBC - COMP BLD CT W/AUTO DIFF] [HEME] DAILYLAB 12/28/23 05:00 BMP - BASIC METABOLIC PANEL [CHEM] DAILYLAB CBC [CBC - COMP BLD CT W/AUTO DIFF] [HEME] DAILYLAB Subjective - Subjective Patient Reports: Feeling Better, Resting Comfortably, No Complaints Objective Vital Signs: Vital Signs - 24 hr 12/23/23 12/23/23 12/23/23 12:02 15:31 19:20 Temperature 36.6 C 36.4 C L Heart Rate [ 92 77 Brachial] Respiratory 16 16 Rate Blood Pressure 149/98 H 150/93 H [Right] O2 Saturation 92 94 If not protocol 3 3 3 : Oxygen Flow, liters/minute 12/23/23 12/23/23 12/24/23 21:26 23:22 07:31 Temperature 36.4 C L 36.5 C 36.5 C Heart Rate [ 93 86 91 Brachial] Respiratory 16 18 16 Rate Blood Pressure 168/94 H 157/91 H 152/98 H [Right] O2 Saturation 95 95 If not protocol 3 3 3 : Oxygen Flow, liters/minute Oxygen O2 Source Nasal cannula Oxygen Flow Rate 2 I&O (Last 24 Hrs): Intake and Output Totals x24h 12/22/23 12/23/23 12/24/23 23:59 23:59 23:59 Intake Total 2050 1520 450 Output Total 1850 400 Balance 200 1520 50 General: Alert, Oriented x3, No acute distress Cardiovascular: Regular rate, Normal S1, Normal S2 Respiratory: Chest non-tender, No respiratory distress, Breath sounds nml - Results Results: Laboratory Results WBC 8.9 x10^3/uL (4.8-10.8) 12/24/23 05:20 RBC 3.89 10^6/uL (4.20-5.40) L 12/24/23 05:20 Hgb 11.1 g/dL (12.0-16.0) L 12/24/23 05:20 Hct 36.1 % (37.0-47.0) L 12/24/23 05:20 MCV 92.8 fL (81.0-99.0) 12/24/23 05:20 MCH 28.5 pg (27.0-31.0) 12/24/23 05:20 MCHC 30.7 g/dL (32.0-36.0) L 12/24/23 05:20 RDW 18.1 % (12.0-15.0) H 12/24/23 05:20 Plt Count 259 10^3/uL (130-450) 12/24/23 05:20 MPV 9.3 fL (7.9-10.8) 12/24/23 05:20 Neut # (Auto) 6.6 10^3/uL (1.5-6.6) 12/24/23 05:20 Lymph # (Auto) 1.0 10^3/uL (1.5-3.5) L 12/24/23 05:20 [place] # (Auto) 0.7 10^3/uL (0.0-1.0) 12/24/23 05:20 Eos # (Auto) 0.4 10^3/uL (0.0-0.7) 12/24/23 05:20 Baso # (Auto) 0.1 10^3/uL (0.0-0.1) 12/24/23 05:20 Absolute Nucleated RBC 0.00 x10^3/uL 12/24/23 05:20 Nucleated RBC % 0.0 /100WBC 12/24/23 05:20 Bld Gas Analysis Time 0700 12/19/23 06:57 Sample Site RIGHT RADIAL 12/19/23 06:57 ABG pH 7.46 (7.35-7.45) H 12/19/23 06:57 ABG pCO2 28 mmHg (34-45) L 12/19/23 06:57 ABG pO2 65 mmHg (80-100) L 12/19/23 06:57 ABG HCO3 19.4 mmol/L (22.0-26.0) L 12/19/23 06:57 ABG Total CO2 20.3 MMOL/L (21.0-29.0) L 12/19/23 06:57 ABG O2 Saturation 92 % (94-98) L 12/19/23 06:57 ABG Base Excess -3.5 mmol/L (-2.0-3.0) L 12/19/23 06:57 Joe Test POSITIVE 12/19/23 06:57 O2 Delivery Device BiPAP 12/19/23 06:57 FiO2 100.00 12/19/23 06:57 EPAP 4 cmH2O 12/19/23 06:57 IPAP 10 cmH2O 12/19/23 06:57 Sodium 136 mmol/L (135-145) 12/24/23 05:20 Potassium 3.4 mmol/L (3.5-4.5) L 12/24/23 05:20 Chloride 103 mmol/L (101-111) 12/24/23 05:20 Carbon Dioxide 27 mmol/L (21-32) 12/24/23 05:20 Anion Gap 6.0 (6-13) 12/24/23 05:20 BUN 11 mg/dL (6-20) 12/24/23 05:20 Creatinine 0.5 mg/dL (0.6-1.3) L 12/24/23 05:20 Estimated GFR (MDRD) 117 (>89) 12/24/23 05:20 Glucose 87 mg/dL (74-104) 12/24/23 05:20 Calcium 9.1 mg/dL (8.5-10.3) 12/24/23 05:20 Total Bilirubin 1.1 mg/dL (0.2-1.0) H 12/19/23 05:51 AST 43 IU/L (10-42) H 12/19/23 05:51 ALT 30 IU/L (10-60) 12/19/23 05:51 Alkaline Phosphatase 153 IU/L (42-121) H 12/19/23 05:51 Total Protein 7.8 g/dL (6.4-8.9) 12/19/23 05:51 Albumin 4.3 g/dL (3.2-5.5) 12/19/23 05:51 Globulin 3.5 g/dL (2.1-4.2) 12/19/23 05:51 Albumin/Globulin Ratio 1.2 (1.0-2.2) 12/19/23 05:51 Lipase 37 U/L (11-82) 12/19/23 05:51 Procalcitonin Immunoas 1.49 ng/mL (<0.5) H 12/23/23 05:10 Nasal Adenovirus (PCR) NOT DETECTED 12/19/23 05:55 Nasal B. parapertussis DNA (PCR) NOT DETECTED 12/19/23 05:55 Nasal Coronavir 229E PCR NOT DETECTED 12/19/23 05:55 Nasal Coronavir HKU1 PCR NOT DETECTED 12/19/23 05:55 Nasal Coronavir NL63 PCR NOT DETECTED 12/19/23 05:55 Nasal Coronavir OC43 PCR NOT DETECTED 12/19/23 05:55 Nasal Enterovir/Rhinovir PCR NOT DETECTED 12/19/23 05:55 Nasal Influenza B PCR NOT DETECTED 12/19/23 05:55 Nasal Influenza A PCR NOT DETECTED 12/19/23 05:55 Nasal Parainfluen 1 PCR NOT DETECTED 12/19/23 05:55 Nasal Parainfluen 2 PCR NOT DETECTED 12/19/23 05:55 Nasal Parainfluen 3 PCR NOT DETECTED 12/19/23 05:55 Nasal Parainfluen 4 PCR NOT DETECTED 12/19/23 05:55 Nasal RSV (PCR) NOT DETECTED 12/19/23 05:55 Nasal Screen MRSA (PCR) NEGATIVE (NEGATIVE) 12/19/23 08:40 Nasal B.pertussis DNA PCR NOT DETECTED 12/19/23 05:55 Nasal C.pneumoniae (PCR) NOT DETECTED 12/19/23 05:55 Otm Human Metapneumo PCR NOT DETECTED 12/19/23 05:55 Nasal M.pneumoniae (PCR) NOT DETECTED 12/19/23 05:55 Nasal SARS-CoV-2 (PCR) NOT DETECTED 12/19/23 05:55 Last Dose Date 12-22-23 12/23/23 05:10 Last Dose Time 1202 12/23/23 05:10 Vancomycin Trough 11.5 ug/mL 12/23/23 05:10 Blood Type A POSITIVE 12/20/23 08:07 Antibody Screen NEGATIVE 12/20/23 08:07 Crossmatch IS Only See Detail 12/20/23 08:07 - Procedures Procedures: Procedures CONTROL BLEEDING IN GASTROINTESTINAL TRACT, ENDO (03/02/17) EXCISION OF ESOPHAGOGASTRIC JUNCTION, ENDO, DIAGN (03/02/17) EXCISION OF SIGMOID COLON, ENDO, DIAGN (03/02/17) EXCISION OF STOMACH, ENDO, DIAGN (03/02/17) EXCISION OF STOMACH, PYLORUS, ENDO, DIAGN (03/02/17) RESECTION OF RECTUM, OPEN APPROACH (03/08/17) RESECTION OF SIGMOID COLON, OPEN APPROACH (03/08/17) TRANSFUSE NONAUT RED BLOOD CELLS IN PERIPH VEIN, PERC (12/11/23) Sepsis Event Note (H) - Evaluation Current Stage of Sepsis: Ruled out
[2023-12-24] MEDS: POTASSIUM CHLORIDE 20 MEQ TABLET PO ONE (09:32)
[2023-12-25 05:20] LABS: BASOPHILS # (AUTO) 0.1 10^3/uL (0.0-0.1); BASOPHILS % (AUTO) 1.1 %; EOSINOPHILS # (AUTO) 0.4 10^3/uL (0.0-0.7); EOSINOPHILS % (AUTO) 3.9 %; HCT - HEMATOCRIT 36.6 % (37.0-47.0); HGB - HEMOGLOBIN 11.1 g/dL (12.0-16.0); LYMPHOCYTES # (AUTO) 1.1 10^3/uL (1.5-3.5); LYMPHOCYTES % (AUTO) 11.5 %; MEAN CORPUSCULAR HEMOGLOBIN 28.3 pg (27.0-31.0); MEAN CORPUSCULAR HGB CONC 30.3 g/dL (32.0-36.0); MEAN CORPUSCULAR VOLUME 93.4 fL (81.0-99.0); MEAN PLATELET VOLUME 9.6 fL (7.9-10.8); MONOCYTES # (AUTO) 0.8 10^3/uL (0.0-1.0); MONOCYTES % (AUTO) 8.6 %; NEUTROPHILS # (AUTO) 7.2 10^3/uL (1.5-6.6); NEUTROPHILS % (AUTO) 74.4 %; PLT - PLATELET COUNT 266 10^3/uL (130-450); RED BLOOD COUNT 3.92 10^6/uL (4.20-5.40); RED CELL DISTRIBUTION WIDTH 18.4 % (12.0-15.0); WHITE BLOOD COUNT 9.7 x10^3/uL (4.8-10.8)
[2023-12-25 05:31] LABS: CALCIUM 9.1 mg/dL (8.5-10.3); CREATININE 0.6 mg/dL (0.6-1.3); POTASSIUM 3.7 mmol/L (3.5-4.5)
--- NOTE | 2023-12-25 07:54 | PROVIDER PROGRESS NOTE ---
Assessment/Plan - Problem List (1) Acute respiratory failure with hypoxia Assessment/Plan: (1) Acute respiratory failure with hypoxia Assessment/Plan: --CT chest showing left upper and lower lobe consolidation representing multifocal pneumonia. Small left pleural effusion. Small moderate right sided pleural effusion. Recommend CT chest in 4 to 6 weeks to ensure resolution. --Currently on IV antibiotics with cefepime and vancomycin. Will stop IV van comycin. --Requiring 2 L of oxygen via nasal cannula. She would likely need this 24 hours a day. Patient was not wearing any oxygen at home prior to coming to the hospital. She had been given oxygen while she was in the longterm however. (2) Pneumonia Qualifiers: Pneumonia type: due to unspecified organism Laterality: bilateral Lung location: lower lobe of lung Qualified Code(s): J18.9 - Pneumonia, unspecified organism Assessment/Plan: --As mentioned above, continue IV antibiotics. Cultures are currently pending. (3) Severe hypertension Assessment/Plan: --Continue home antihypertensives. Her blood pressures have stabilized since yesterday. (4) Afib Qualifiers: Atrial fibrillation type: longstanding persistent Qualified Code(s): I48.11 - Longstanding persistent atrial fibrillation Assessment/Plan: --Continue but continue Eliquis and metoprolol. (5) Cognitive decline Assessment/Plan: --Long-term plan is to place patient in an assisted living facility after she finishes physical therapy. Anticipate discharge tomorrow back to [facility]. Pending insurance authorization. (2) Pneumonia Qualifiers: Pneumonia type: due to unspecified organism Laterality: bilateral Lung location: lower lobe of lung Qualified Code(s): J18.9 - Pneumonia, unspecified organism (4) Afib Qualifiers: Atrial fibrillation type: longstanding persistent Qualified Code(s): I48.11 - Longstanding persistent atrial fibrillation - Current Meds Current Meds: Current Medications Generic Name Dose Route Start Last Admin Trade Name Freq PRN Reason Stop Dose Admin Albuterol 2.5 mg 12/19/23 07:36 12/22/23 07:51 Albuterol Neb 2.5 Mg/3 Ml INH 2.5 mg Q4HR PRN Administration Wheezing Amlodipine Besylate 10 mg 12/22/23 09:00 12/24/23 09:27 Amlodipine 5 Mg Tablet PO 10 mg DAILY LENKA Administration Apixaban 5 mg 12/20/23:00 12/24/23 20:21 Apixaban 5 Mg Tablet PO 5 mg BID LENKA Administration Atorvastatin Calcium 10 mg 12/19/23 21:00 12/24/23 20:22 Atorvastatin 10 Mg Tablet PO 10 mg QPM LENKA Administration Cholecalciferol 25 mcg 12/20/23 09:00 12/24/23 09:27 Cholecalciferol 25 Mcg Tablet PO 25 mcg DAILY LENKA Administration Clonidine HCl 0.1 mg 12/20/23 09:00 12/24/23 09:26 Clonidine 0.1 Mg Tablet PO 0.1 mg DAILY LENKA Administration Cyanocobalamin 500 mcg 12/20/23 09:00 12/24/23 09:26 Cyanocobalamin 500 Mcg Tablet PO 500 mcg DAILY LENKA Administration Cefepime HCl 2 gm/ Sodium 100 mls @ 200 mls/hr 12/19/23 14:00 12/25/23 05:57 Chloride IV 12/26/23 13:59 Infused Q8HR LENKA Infusion Vancomycin HCl 1 gm/ Sodium 250 mls @ 167 mls/hr 12/23/23 21:00 12/24/23 22:0 4 Chloride IV Infused Q12H LENKA Infusion Levothyroxine Sodium 75 mcg 12/20/23 09:00 12/24/23 09:26 Levothyroxine 75 Mcg Tablet PO 75 mcg DAILY LENKA Administration Losartan Potassium 50 mg 12/20/23 09:00 12/24/23 09:27 Losartan 50 Mg Tablet PO 50 mg DAILY LENKA Administration Metoprolol Succinate 50 mg 12/19/23 11:53 12/24/23 20:22 Metoprolol Succinate 50 Mg Tablet PO 50 mg QPM LENKA Administration Ondansetron HCl 4 mg 12/19/23 07:33 12/19/23 08:54 Ondansetron Odt 4 Mg Tablet TL 4 mg Q6HR PRN Administration Nausea / Vomiting Polyethylene Glycol 17 gm 12/21/23 09:00 12/24/23 09:28 Polyethylene Glycol 3350 17 Gm Packet PO 17 gm DAILY LENKA Administration Multivit/Folic Acid/Iron 1 tab 12/20/23 08:00 12/24/23 09:26 Vitamin Tablet PO 1 tab DAILYWM LENKA Administration Saccharomyces Boulardii 250 mg 12/19/23 08:00 12/24/23 16:14 Saccharomyces Boulardii 250 Mg Capsule PO 250 mg BIDWM LENKA Administration Sodium Chloride 10 ml 12/19/23 07:33 12/23/23 21:48 Sodium Chloride Flush 0.9% 10 Ml Syringe IVP 10 ml PRN PRN Administration NEEDED PER PROVIDER ORDERS Sodium Chloride 10 ml 12/19/23 09:00 12/24/23 23:38 Sodium Chloride Flush 0.9% 10 Ml Syringe IVP 10 ml 0100,0900,1700 LENKA Administration Triamcinolone Acetonide 1 applic 12/19/23 21:00 12/24/23 20:22 Triamcinolone 0.5% Cream 15 Gm Tube TOP 1 applic BID LENKA Administration - Lab Result Fish Bone Diagrams: 12/25/23 05:08 12/25/23 05:08 - Additional Planning My Orders: My Active Orders 12/26/23 05:00 BMP - BASIC METABOLIC PANEL [CHEM] DAILYLAB CBC [CBC - COMP BLD CT W/AUTO DIFF] [HEME] DAILYLAB 12/27/23 05:00 BMP - BASIC METABOLIC PANEL [CHEM] DAILYLAB CBC [CBC - COMP BLD CT W/AUTO DIFF] [HEME] DAILYLAB 12/28/23 05:00 BMP - BASIC METABOLIC PANEL [CHEM] DAILYLAB CBC [CBC - COMP BLD CT W/AUTO DIFF] [HEME] DAILYLAB Subjective - Subjective Patient Reports: Feeling Better, Resting Comfortably, No Complaints Objective Vital Signs: Vital Signs - 24 hr 12/24/23 12/24/23 12/24/23 10:04 15:48 16:17 Temperature 36.7 C Heart Rate [ 64 Brachial] Respiratory 16 Rate Blood Pressure 123/78 [Right] O2 Saturation 91 L 93 If not protocol 3 3 3 : Oxygen Flow, liters/minute 12/24/23 12/24/23 12/25/23 18:45 23:44 07:17 Temperature 36.6 C 36.7 C Heart Rate [ 76 76 Brachial] Respiratory 20 20 Rate Blood Pressure 150/93 H 140/95 H [Right] O2 Saturation 95 92 If not protocol 3 3 : Oxygen Flow, liters/minute Oxygen O2 Source Room air Oxygen Flow Rate 2 I&O (Last 24 Hrs): Intake and Output Totals x24h 12/23/23 12/24/23 12/25/23 23:59 23:59 23:59 Intake Total 1520 2350 100 Output Total 800 Balance 1520 1550 100 General: Alert, Oriented x3, Cooperative, No acute distress Cardiovascular: Regular rate, Normal S1, Normal S2, No murmurs Respiratory: Chest non-tender, No respiratory distress, Breath sounds nml Abdomen: Normal bowel sounds, Soft, No tenderness, No hepatospenomegaly, No masses - Results Results: Laboratory Results WBC 9.7 x10^3/uL (4.8-10.8) 12/25/23 05:08 RBC 3.92 10^6/uL (4.20-5.40) L 12/25/23 05:08 Hgb 11.1 g/dL (12.0-16.0) L 12/25/23 05:08 Hct 36.6 % (37.0-47.0) L 12/25/23 05:08 MCV 93.4 fL (81.0-99.0) 12/25/23 05:08 MCH 28.3 pg (27.0-31.0) 12/25/23 05:08 MCHC 30.3 g/dL (32.0-36.0) L 12/25/23 05:08 RDW 18.4 % (12.0-15.0) H 12/25/23 05:08 Plt Count 266 10^3/uL (130-450) 12/25/23 05:08 MPV 9.6 fL (7.9-10.8) 12/25/23 05:08 Neut # (Auto) 7.2 10^3/uL (1.5-6.6) H 12/25/23 05:08 Lymph # (Auto) 1.1 10^3/uL (1.5-3.5) L 12/25/23 05:08 [place] # (Auto) 0.8 10^3/uL (0.0-1.0) 12/25/23 05:08 Eos # (Auto) 0.4 10^3/uL (0.0-0.7) 12/25/23 05:08 Baso # (Auto) 0.1 10^3/uL (0.0-0.1) 12/25/23 05:08 Absolute Nucleated RBC 0.00 x10^3/uL 12/25/23 05:08 Nucleated RBC % 0.0 /100WBC 12/25/23 05:08 Bld Gas Analysis Time 0700 12/19/23 06:57 Sample Site RIGHT RADIAL 12/19/23 06:57 ABG pH 7.46 (7.35-7.45) H 12/19/23 06:57 ABG pCO2 28 mmHg (34-45) L 12/19/23 06:57 ABG pO2 65 mmHg (80-100) L 12/19/23 06:57 ABG HCO3 19.4 mmol/L (22.0-26.0) L 12/19/23 06:57 ABG Total CO2 20.3 MMOL/L (21.0-29.0) L 12/19/23 06:57 ABG O2 Saturation 92 % (94-98) L 12/19/23 06:57 ABG Base Excess -3.5 mmol/L (-2.0-3.0) L 12/19/23 06:57 Joe Test POSITIVE 12/19/23 06:57 O2 Delivery Device BiPAP 12/19/23 06:57 FiO2 100.00 12/19/23 06:57 EPAP 4 cmH2O 12/19/23 06:57 IPAP 10 cmH2O 12/19/23 06:57 Sodium 136 mmol/L (135-145) 12/25/23 05:08 Potassium 3.7 mmol/L (3.5-4.5) 12/25/23 05:08 Chloride 103 mmol/L (101-111) 12/25/23 05:08 Carbon Dioxide 28 mmol/L (21-32) 12/25/23 05:08 Anion Gap 5.0 (6-13) L 12/25/23 05:08 BUN 12 mg/dL (6-20) 12/25/23 05:08 Creatinine 0.6 mg/dL (0.6-1.3) 12/25/23 05:08 Estimated GFR (MDRD) 95 (>89) 12/25/23 05:08 Glucose 85 mg/dL (74-104) 12/25/23 05:08 Calcium 9.1 mg/dL (8.5-10.3) 12/25/23 05:08 Total Bilirubin 1.1 mg/dL (0.2-1.0) H 12/19/23 05:51 AST 43 IU/L (10-42) H 12/19/23 05:51 ALT 30 IU/L (10-60) 12/19/23 05:51 Alkaline Phosphatase 153 IU/L (42-121) H 12/19/23 05:51 Total Protein 7.8 g/dL (6.4-8.9) 12/19/23 05:51 Albumin 4.3 g/dL (3.2-5.5) 12/19/23 05:51 Globulin 3.5 g/dL (2.1-4.2) 12/19/23 05:51 Albumin/Globulin Ratio 1.2 (1.0-2.2) 12/19/23 05:51 Lipase 37 U/L (11-82) 12/19/23 05:51 Procalcitonin Immunoas 1.49 ng/mL (<0.5) H 12/23/23 05:10 Nasal Adenovirus (PCR) NOT DETECTED 12/19/23 05:55 Nasal B. parapertussis DNA (PCR) NOT DETECTED 12/19/23 05:55 Nasal Coronavir 229E PCR NOT DETECTED 12/19/23 05:55 Nasal Coronavir HKU1 PCR NOT DETECTED 12/19/23 05:55 Nasal Coronavir NL63 PCR NOT DETECTED 12/19/23 05:55 Nasal Coronavir OC43 PCR NOT DETECTED 12/19/23 05:55 Nasal Enterovir/Rhinovir PCR NOT DETECTED 12/19/23 05:55 Nasal Influenza B PCR NOT DETECTED 12/19/23 05:55 Nasal Influenza A PCR NOT DETECTED 12/19/23 05:55 Nasal Parainfluen 1 PCR NOT DETECTED 12/19/23 05:55 Nasal Parainfluen 2 PCR NOT DETECTED 12/19/23 05:55 Nasal Parainfluen 3 PCR NOT DETECTED 12/19/23 05:55 Nasal Parainfluen 4 PCR NOT DETECTED 12/19/23 05:55 Nasal RSV (PCR) NOT DETECTED 12/19/23 05:55 Nasal Screen MRSA (PCR) NEGATIVE (NEGATIVE) 12/19/23 08:40 Nasal B.pertussis DNA PCR NOT DETECTED 12/19/23 05:55 Nasal C.pneumoniae (PCR) NOT DETECTED 12/19/23 05:55 Tom Human Metapneumo PCR NOT DETECTED 12/19/23 05:55 Nasal M.pneumoniae (PCR) NOT DETECTED 12/19/23 05:55 Nasal SARS-CoV-2 (PCR) NOT DETECTED 12/19/23 05:55 Last Dose Date 12-22-23 12/23/23 05:10 Last Dose Time 1202 12/23/23 05:10 Vancomycin Trough 11.5 ug/mL 12/23/23 05:10 Blood Type A POSITIVE 12/20/23 08:07 Antibody Screen NEGATIVE 12/20/23 08:07 Crossmatch IS Only See Detail 12/20/23 08:07 - Procedures Procedures: Procedures CONTROL BLEEDING IN GASTROINTESTINAL TRACT, ENDO (03/02/17) EXCISION OF ESOPHAGOGASTRIC JUNCTION, ENDO, DIAGN (03/02/17) EXCISION OF SIGMOID COLON, ENDO, DIAGN (03/02/17) EXCISION OF STOMACH, ENDO, DIAGN (03/02/17) EXCISION OF STOMACH, PYLORUS, ENDO, DIAGN (03/02/17) RESECTION OF RECTUM, OPEN APPROACH (03/08/17) RESECTION OF SIGMOID COLON, OPEN APPROACH (03/08/17) TRANSFUSE NONAUT RED BLOOD CELLS IN PERIPH VEIN, PERC (12/11/23) Sepsis Event Note (H) - Evaluation Current Stage of Sepsis: Ruled out
--- NOTE | 2023-12-25 11:08 | Discharge Plan ---
"Discharge Plan for SNF / [facility] - Discharge Plan And Transition Orders Problem Reviewed?: Yes Disposition: 03 SNF DC/Xfer Condition: Good Allergies and Adverse Reactions: Allergies Allergy/AdvReac Type Severity Reaction Status Date / Time strawberry Allergy Unknown Verified 12/11/23 11:46 venom-honey bee Allergy swelling Verified 12/11/23 11:46 [bee venom (honey bee)] - SNF / [facility] Transition Orders Admit to (Facility): [facility] Discharge Diagnosis: Pneumonia - received 6 days of IV antibiotics while inpatient. Will need one additional dose on discharge. Medicare Certification Statement: I certify that [facility] care is medically necessary on a continuing basis for any of the conditions for which she/he is receiving care during hospitalization. Notify PCP of admission and forward orders to primary provider for signature. Weight on admission and: Daily Call PCP immediately if weight increases by: 5 kg Other Notification Orders: Call PCP immediately if patient develops dyspnea, chest pain/tightness or edema. House Bowel Program: Yes Additional Bowel Program Orders: If no BM after 2 days, nurse may give M.O.M. 30ml PO PRN and/or ducolax Supp 1 CO and/or VIKI 250mg P.O., and/or senna 1-2 tabs PO. On day 3 nurse may give repeat above order until residents constipation is resolved. Annual Influenza Vaccine (between Jun 03 and December 31): Yes Two-step PPD per [facility] [phone] or approved exception documents: Yes Oxygen Orders: Maintain oxygen 88-93% Medication Orders: PLEASE REFER TO THE DISCHARGE MEDICATION LIST. Insulin Orders?: No - Medications New Prescriptions: Albuterol 2.5 mg INH Q4HR PRN 30 Days ml PRN Reason: Wheezing levoFLOXacin [Levofloxacin] 750 mg PO DAILY 1 Days #1 tab - Diet Type: Geriatric Texture: Regular May have monthly special meal: Yes - Therapies | Activity Therapy: Evaluation | Treat if indicated: PT, OT Rehabilitation Potential: Maximize functional status, Return to independent living Activity: Activity as Tolerated Follow Up: Follow up with Andre Spring in 3-5 days."
--- NOTE | 2023-12-25 11:22 | DISCHARGE SUMMARY ---
Discharge Summary Admit Date: 12/19/23 Discharge Date: 12/25/23 Discharging Provider: He Mckoy Primary Care Provider: Andre Spring Code Status: Do Not Attempt Resuscitation Condition at Discharge: Good Discharge Disposition: SNF DC/Xfer Discharge Facility Name: [facility] - DIAGNOSES Discharge Diagnoses with Status of Each Condition: (1) Acute respiratory failure with hypoxia Assessment/Plan: --CT chest showing left upper and lower lobe consolidation representing multif ocal pneumonia. Small left pleural effusion. Small moderate right sided pleural effusion. Recommend CT chest in 4 to 6 weeks to ensure resolution. --Received IV vancomycin and cefepime while inpatient. Transitioned to Levofloxacin for 7 total days of treatment. --Requiring 2 L of oxygen via nasal cannula. She would likely need this 24 hours a day. Patient was not wearing any oxygen at home prior to coming to the hospital. She had been given oxygen while she was in the halfway however. (2) Pneumonia Qualifiers: Pneumonia type: due to unspecified organism Laterality: bilateral Lung location: lower lobe of lung Qualified Code(s): J18.9 - Pneumonia, unspecified organism Assessment/Plan: --As mentioned above. (3) Severe hypertension Assessment/Plan: --Continue home antihypertensives. (4) Afib Qualifiers: Atrial fibrillation type: longstanding persistent Qualified Code(s): I48.11 - Longstanding persistent atrial fibrillation Assessment/Plan: --Continue but continue Eliquis and metoprolol. (5) Cognitive decline Assessment/Plan: --Long-term plan is to place patient in an assisted living facility after she finishes physical therapy at [facility]. - HPI History of Present Illness: This raghu 83-year-old female was just discharged from our facility on December 12. 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 It is postulated that she has spread of her squamous cell lung cancer with groin adenopathy or recurrence of her history of colon cancer. For quality of life discussions, and financial concerns, she and the daughter have decided not to pursue workup with biopsy or more treatment. She is in subsidized housing and has been there for a few years with the help of daughter and caregivers. She does not require 24/7 care but they do come by almost daily. When the Keytruda really cause the downward turn, that is why she ended up in the fdc facility for temporary rehab. She was seen in the emergency room November 16 with cancer related pain. Kept overnight since she did not have criteria for admission and was placed at [facility] by November 17. Seen by hospice for informational visit in the emergency room as well as at the halfway. Daughter has opted not to put her in hospice yet for financial reasons. They cannot take her home to take care of her. They do not have the money for caregivers. They hope to complete rehab at [facility]. Once she leaves [facility] she will go to an assisted living facility and the hospitalist will be ordered then. Hope that the assisted living facility will be paid by the patient's benefits as a Medicare Medicaid patient. Mom is Medicaid pending. The daughter has been in negotiatio ns with Gen with this matter. Approximately first week of December she had a short episode of altered mental status at the SNF that quickly cleared after about an hour. She was then brought to our emergency room December 10 for facial droop, weakness, shortness of breath. In the emergency room she was noted to be hypoxic with a hemoglobin of 7.4. Chest x-ray had a right pleural effusion.A stroke workup ensued for her altered mental status but no new findings were found. She has anemia and no EGD or colonoscopy was done but she was transfused 1 unit. She received IV diuresis for possible mild fluid overload. She is still hypoxic, and she does have a large to moderate right-sided pleural effusion which is being treated with a diuretic. She is felt to have mild acute on chronic congestive heart failure. Her last echocardiogram was done in March 2017. She had a normal ejection frac tion of 60 to 65%. Impaired relaxation consistent with grade 1 diastolic dysfunction. Right ventricle was normal in size and function. No significant valvular heart disease. 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 A PET scan done in June 2023 is notable for bilateral inguinal adenopathy concerning for metastatic disease. Keytruda was held because of ongoing symptoms of thyroid. 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 She also has a history of early low-grade colon cancer of the rectosigmoid that was resected in 2017. Again now with lymphadenopathy of unclear etiology. I did speak to her oncologist. He does postulate that her pleural effusion could be malignant. But patient and family have decided, again, not to pursue workup for quality of life decisions. She was discharged after diuresis. Went back to a [facility]dc facility on December 12. She is walking 3 laps in the facility. Feeling like she is ac complishing the goal to get stronger. She even went to her apartment on Tuesday, December 16 to clean the kitchen her apartment. Yesterday she felt as if she was developing a cold with some chest congestion. And then everything just went downhill from there starting last night into this morning.. Severe shortness of breath. She was having sharp stabbing pain in her left upper quadrant. I thought at first she was talking about her chest wall but she points to the left upper quadrant underneath her spleen. She said the pain was so severe but it would only last for seconds and then come back. She is having normal bowel movements. No distention. No diarrhea. No blood in her stool. No fever. Appetite has been "okay". Ambulance was called for the shortness of breath. Productive cough. Blood pressure is 177/109. Heart rate 148. Temperature 36.6. She was 74% on room air. She is on Eliquis and aspirin which should be adequate anticoagulation. She did not be having a PE. She was noted to be coughing up blood-tinged foamy sputum. Very short of breath. No fever, no chills. She is on 2 L nasal cannula at baseline. The ER doctor found her to be frail-appearing but alert a nd moderate distress from respiratory status. Tachycardic irregular rate and rhythm. Rales in the left lower lung field, right lung was clear. Her white cell count was 17.9. Hemoglobin 9.8. Random glucose 147. Viral panel negative for COVID. A chest x-ray was done and she has acute left-sided pneumonia superimposed on pulmonary edema. The previous right pleural effusion has resolved. There is density from the upper third of the left lung field to the lung base. She was placed on BiPAP because of the severe hypoxemia to 74% on room air. Blood gas done for evaluation had a pH 7.46, pCO2 28, pO2 65 on BiPAP. The ER doctor called me and she and I discussed the case. We discussed the possibility of recurrence of neoplasm. She is a DNR. Bypass with acceptable but not intubation. I then quickly called the daughter to make sure she wanted mom hospitalized and not in comfort care. She says that she wanted us to move forward with admission and stabilization of her current acute respiratory failure. As such I am admitting this patient with presumed pneumonia of the left lung in the context of someone who may have metastatic squamous cell CA or recurrence of colon cancer - HOSPITAL COURSE Hospital Course: Patient is an 83-year-old female who presented to the ED after previously being discharged on December 12 after being diuresed for a pleural effusion. Her primary complaint during this admission was shortness of breath. A CT scan was performed in the ED which revealed evidence of a left upper and lower lobe consolidation representing multifocal pneumonia. There is also a small to moderate-sized right-sided pleural effusion which was present on her previous admission. Radiologist recommended a repeat CT scan in 4 to 6 weeks after appropriate treatment. Patient was admitted and started on IV vancomycin and cefepime for her pneumonia. She was hypoxic requiring 2 to 5 L of oxygen during her hospitalization. Blood cultures remain negative throughout her hospital course. She received 6 total days of IV antibiotics while inpatient. She will be discharged with 1 additional day of levofloxacin 750 mg to complete 7 total days of treatment. She was eval by physical therapy and Occupational Therapy who recommended anusha ent return to SNF at [facility]. The plan will be to have her complete therapies and she would like to return home after this to assisted living. Of note patient is being discharged as a DNR/DNI. - ALLERGIES Allergies/Adverse Reactions: Allergies Allergy/AdvReac Type Severity Reaction Status Date / Time strawberry Allergy Unknown Verified 12/11/23 11:46 venom-honey bee Allergy swelling Verified 12/11/23 11:46 [bee venom (honey bee)] - MEDICATIONS Home Medications: Ambulatory Orders Medication Instructions Recorded Confirmed Zolpidem Tartrate 10 mg PO QPM PRN 03/19/17 12/19/23 Triamcinolone 0.5% Cream [Kenalog 1 applic TOP BID #15 gm 11/17/23 12/19/23 0.5% Cream] oxyCODONE [Roxicodone] 5 mg PO Q6H PRN #20 tablet 11/17/23 12/19/23 Apixaban [Eliquis] 5 mg ORAL BID #60 tab 12/13/23 12/19/23 Aspirin [Aspirin Regimen] 81 mg PO DAILY #30 tab 12/13/23 12/19/23 Cholecalciferol [Vitamin D3] 25 mcg PO DAILY #0 12/13/23 12/19/23 Cyanocobalamin (Vitamin B-12) 500 mcg PO DAILY #30 tab 12/13/23 12/19/23 [Vitamin B12] Levothyroxine Sodium [Synthroid] 75 mcg PO DAILY #30 tablet 12/13/23 12/19/23 Metoprolol Succinate [Toprol Xl] 50 mg PO QPM #30 tab 12/13/23 12/19/23 Olmesartan Medoxomil [Benicar] 20 mg PO DAILY #30 tab 12/13/23 12/19/23 Vit No.170/Iron/Folic 1 each PO DAILY #30 tablet 12/13/23 12/19/23 [Dermacinrx Prenatrix Caplet] Rosuvastatin Calcium [Crestor] 5 mg PO DAILY #30 tab 12/13/23 12/19/23 amLODIPine [Norvasc] 5 mg PO DAILY #30 tab 12/13/23 12/19/23 cloNIDine [Catapres] 0.1 mg PO DAILY #30 tab 12/13/23 12/19/23 Albuterol 2.5 mg INH Q4HR PRN 30 Days ml 12/25/23 levoFLOXacin [Levofloxacin] 750 mg PO DAILY 1 Days #1 tab 12/25/23 - PHYSICAL EXAM AT DISCHARGE General Appearance: positive: No acute distress, Alert Respiratory: positive: Chest non-tender, No respiratory distress, Breath sounds nml. negative: Wheezes Cardiovascular: positive: Regular rate & rhythm, No murmur, No gallop Extremities: positive: Non-tender, No pedal edema Neurologic/Psychiatric: positive: Oriented x3, CN's nml (2-12) - LABS Result Diagrams: 12/25/23 05:08 12/25/23 05:08 - DIAGNOSTIC IMAGING Diagnostic Imaging Results: Final report reviewed - SEPSIS Current Stage of Sepsis: Ruled out - FOLLOW UP Follow Up: Follow up with Dr. Andre Spring in 3-5 days. She will need a repeat CT chest in 4-6 weeks to ensure resolution of her pneumonia. - TIME SPENT Time Spent in Discharge (Minutes): 35
[2023-12-25 18:11] VITALS: BP 118/77; O2SAT 94
== END 2023-12-25 18:10 | DRG 193 ==
LOC: EDUNIT# → ED 05:42 → ICU 07:33 → MS2 12-21 13:15
PROVIDERS: ADMIT Specialist; ATTEND Family Medicine
PROC: 5A09357 Assistance with Respiratory Ventilation, Less than 24 Consecutive Hours, Continuous Positive Airway Pressure (ICD-10-PCS; principal; 2023-12-19)
DX: J18.9 Pneumonia, unspecified organism (principal); J96.01 Acute respiratory failure with hypoxia; I48.91 Unspecified atrial fibrillation; I48.11 Longstanding persistent atrial fibrillation; J91.8 Pleural effusion in other conditions classified elsewhere; I10 Essential (primary) hypertension; E06.4 Drug-induced thyroiditis; T45.1X5A Adverse effect of antineoplastic and immunosuppressive drugs, initial encounter; Z66 Do not resuscitate; D64.9 Anemia, unspecified; C44.701 Unspecified malignant neoplasm of skin of unspecified lower limb, including hip; I08.3 Combined rheumatic disorders of mitral, aortic and tricuspid valves; R41.3 Other amnesia; R41.89 Other symptoms and signs involving cognitive functions and awareness; R53.1 Weakness; R29.6 Repeated falls; M25.50 Pain in unspecified joint; Z79.01 Long term (current) use of anticoagulants; Z79.82 Long term (current) use of aspirin; Z11.52 Encounter for screening for COVID-19; Z85.038 Personal history of other malignant neoplasm of large intestine; Z91.81 History of falling
CPT/HCPCS: 36415; 36600; 71045; 71260; 80048; 80053; 80202; 82803; 83690; 84145; 85025; 86850; 86900; 86901; 86920; 87040; 87150; 87633; 93005; 94640; 94660; 96365; 96375; 97116; 97161; 97166; 97530; 97535; 99291; A9270; J3370; P9016; Q0162; Q9967

== ENCOUNTER 2024-01-17 04:21 | Outpatient (CLI) | payer MEDICARE | END 2024-01-17 23:59 | disposition critical access hospital (66) | LOC: EMS 04:21 | DX: S81.812A Laceration without foreign body, left lower leg, initial encounter (principal); Z79.01 Long term (current) use of anticoagulants | CPT/HCPCS: A0425; A0429 ==

== ENCOUNTER 2024-01-17 04:25 | Emergency (ER) | payer MEDICARE ==
--- NOTE | 2024-01-17 04:50 | ED Physician Documentation ---
PD HPI SKIN - Stated complaint Stated Complaint: LT LEG LAC - Chief complaint Chief Complaint: Laceration - History obtained from History obtained from: Patient - Additional information Additional information: Patient is brought to the emergency department by EMS for chief complaint of left lower leg wound. The patient states she had been in bed and got up to go the bathroom when she noticed her leg was bleeding. She has no idea what she caught it on but she noticed she had torn the skin off of a portion. Medics state the patient's "house looks like a crime scene" because of the bleeding. She takes Eliquis. The patient denies any other complaints or any other injuries. 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 : None HEENT: None Psych: Anxiety Musculoskeletal: Other Derm: Other - Past Surgical History Past Surgical History: Yes General: Appendectomy Ortho: Amputation Cardiovascular: Vascular surgery HEENT: Tonsil/Adenoidectomy - Present Medications Home Medications: Ambulatory Orders Medication Instructions Recorded Confirmed Zolpidem Tartrate 10 mg PO QPM PRN 03/19/17 12/19/23 Triamcinolone 0.5% Cream [Kenalog 1 applic TOP BID #15 gm 11/17/23 12/19/23 0.5% Cream] oxyCODONE [Roxicodone] 5 mg PO Q6H PRN #20 tablet 11/17/23 12/19/23 Apixaban [Eliquis] 5 mg ORAL BID #60 tab 12/13/23 12/19/23 Aspirin [Aspirin Regimen] 81 mg PO DAILY #30 tab 12/13/23 12/19/23 Cholecalciferol [Vitamin D3] 25 mcg PO DAILY #0 12/13/23 12/19/23 Cyanocobalamin (Vitamin B-12) 500 mcg PO DAILY #30 tab 12/13/23 12/19/23 [Vitamin B12] Levothyroxine Sodium [Synthroid] 75 mcg PO DAILY #30 tablet 12/13/23 12/19/23 Metoprolol Succinate [Toprol Xl] 50 mg PO QPM #30 tab 12/13/23 12/19/23 Olmesartan Medoxomil [Benicar] 20 mg PO DAILY #30 tab 12/13/23 12/19/23 Vit No.170/Iron/Folic 1 each PO DAILY #30 tablet 12/13/23 12/19/23 [Dermacinrx Prenatrix Caplet] Rosuvastatin Calcium [Crestor] 5 mg PO DAILY #30 tab 12/13/23 12/19/23 amLODIPine [Norvasc] 5 mg PO DAILY #30 tab 12/13/23 12/19/23 cloNIDine [Catapres] 0.1 mg PO DAILY #30 tab 12/13/23 12/19/23 Albuterol 2.5 mg INH Q4HR PRN 30 Days ml 12/25/23 levoFLOXacin [Levofloxacin] 750 mg PO DAILY 1 Days #1 tab 12/25/23 - Allergies Allergies/Adverse Reactions: Allergies Allergy/AdvReac Type Severity Reaction Status Date / Time strawberry Allergy Unknown Verified 01/17/24 04:34 venom-honey bee Allergy swelling Verified 01/17/24 04:34 [bee venom (honey bee)] - Social History Does the pt smoke?: No Smoking Status: Never smoker Does the pt drink ETOH?: Yes Does the pt have substance abuse?: No - Immunizations Immunizations are current?: Yes - POLST Patient has POLST: Yes POLST Status: DNR PD ED PE NORMAL - Vitals Vital signs reviewed: Yes - General General: No acute distress, Well developed/nourished, Other (Alert and appropriate.) - HEENT HEENT: Atraumatic, EOMI, Moist mucous membranes - Neck Neck: Supple, no meningeal sign - Cardiac Cardiac: Strong equal pulses - Respiratory Respiratory: No respiratory distress - Derm Derm: Normal color, Warm and dry, Other (Approximately 5 x 3 cm skin tear with approximately 3 mm depth by 1 x 3 cm width and length tear of flash in the center wound. Small area of adipose exposure. Wound edges do not approximate.) - Extremities Extremities: No deformity - Neuro Neuro: Other (Alert and grossly intact.) - Psych Psych: Normal mood, Normal affect Results - Vitals Vitals: Vital Signs - 24 hr 01/17/24 04:28 Temperature 36.4 C L Heart Rate 84 Respiratory 18 Rate Blood Pressure 161/96 H O2 Saturation 97 Oxygen O2 Source Room air PD Medical Decision Making - ED course Complexity details: considered differential, d/w patient ED course: The patient's bleeding was controlledAnd unfortunately, there was no part of the wound that was suturable. As such, I cleaned the wound and placed a nonstick dressing and then a stack of gauze with an Bin wrap around it. I discussed wound care with the patient. Patient stable for discharge home. She is currently awaiting her daughter to come pick her up at the time of this dictation. Departure - Departure Disposition: 01 Home, Self Care Clinical Impression: Skin avulsion Condition: Stable Instructions: ED Avulsion Dermal Comments: You have peeled the skin and centrally, a tiny bit of tissue, off of a portion of your lower leg. Unfortunately, this kind of wound cannot be fixed with suturing and it just needs time to heal. Your bleeding is controlled and you have been placed in a dressing. This should be changed every few days until the wound is drying up and forming a good scab. You may apply Neosporin when you change the dressing. Do not be surprised if it takes a month or two to heal, given the full-thickness nature of the tear, as well as the tissue loss in the middle. Forms: PCP List
[2024-01-17 07:47] VITALS: BP 137/97; O2SAT 100
== END 2024-01-17 07:10 | disposition home or self-care (01) ==
LOC: EDUNIT# → ED 04:25
DX: S81.812A Laceration without foreign body, left lower leg, initial encounter (principal); X58.XXXA Exposure to other specified factors, initial encounter; I10 Essential (primary) hypertension; E78.00 Pure hypercholesterolemia, unspecified; I73.9 Peripheral vascular disease, unspecified; I48.91 Unspecified atrial fibrillation; Z79.899 Other long term (current) drug therapy
CPT/HCPCS: 99283

== ENCOUNTER 2024-01-22 10:13 | Emergency (ER) | payer MEDICARE ==
[2024-01-22 10:51] LABS: BASOPHILS # (AUTO) 0.1 10^3/uL (0.0-0.1); BASOPHILS % (AUTO) 1.1 %; EOSINOPHILS # (AUTO) 0.2 10^3/uL (0.0-0.7); EOSINOPHILS % (AUTO) 3.6 %; HCT - HEMATOCRIT 34.1 % (37.0-47.0); LYMPHOCYTES # (AUTO) 0.7 10^3/uL (1.5-3.5); LYMPHOCYTES % (AUTO) 10.6 %; MEAN CORPUSCULAR HEMOGLOBIN 27.2 pg (27.0-31.0); MEAN CORPUSCULAR HGB CONC 29.3 g/dL (32.0-36.0); MEAN CORPUSCULAR VOLUME 92.7 fL (81.0-99.0); MEAN PLATELET VOLUME 9.3 fL (7.9-10.8); MONOCYTES # (AUTO) 0.7 10^3/uL (0.0-1.0); MONOCYTES % (AUTO) 11.1 %; NEUTROPHILS # (AUTO) 4.6 10^3/uL (1.5-6.6); NEUTROPHILS % (AUTO) 73.3 %; PLT - PLATELET COUNT 250 10^3/uL (130-450); RED BLOOD COUNT 3.68 10^6/uL (4.20-5.40); WHITE BLOOD COUNT 6.3 x10^3/uL (4.8-10.8)
[2024-01-22 11:06] VITALS: BP 142/97; O2SAT 91
--- NOTE | 2024-01-22 12:14 | ED Physician Documentation ---
PD HPI LOWER EXT INJURY - Stated complaint Stated Complaint: LT LEG RED/SWOLLEN/HOT - Chief complaint Chief Complaint: Ext Problem - History obtained from History obtained from: Patient - Additional information Additional information: The patient comes to the emergency department chief complaint of redness around her left lower extremity wound. The patient was seen last week for a skin tear that she is sustained in bed but unknown mechanism. At that point in time, the wound was dressed with a nonstick membrane and antibiotic ointment. The patient initially states that the dressing has not been changed since she had it placed in our ED 5 days ago. She began to notice seemed a bit more painful around the area and thought the redness is was increased though she does have chronic redness and peeling of her bilateral lower legs, secondary to venous insufficiency. Patient denies any spread of the erythema beyond the immediate area around the wound. She denies any fevers or chills. She states "I am kind of pissed because you did not get in here sooner". 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 : None HEENT: None Psych: Anxiety Musculoskeletal: Other Derm: Other - Past Surgical History Past Surgical History: Yes General: Appendectomy Ortho: Amputation Cardiovascular: Vascular surgery HEENT: Tonsil/Adenoidectomy - Present Medications Home Medications: Ambulatory Orders Medication Instructions Recorded Confirmed Zolpidem Tartrate 10 mg PO QPM PRN 03/19/17 12/19/23 Triamcinolone 0.5% Cream [Kenalog 1 applic TOP BID #15 gm 11/17/23 12/19/23 0.5% Cream] oxyCODONE [Roxicodone] 5 mg PO Q6H PRN #20 tablet 11/17/23 12/19/23 Apixaban [Eliquis] 5 mg ORAL BID #60 tab 12/13/23 12/19/23 Aspirin [Aspirin Regimen] 81 mg PO DAILY #30 tab 12/13/23 12/19/23 Cholecalciferol [Vitamin D3] 25 mcg PO DAILY #0 12/13/23 12/19/23 Cyanocobalamin (Vitamin B-12) 500 mcg PO DAILY #30 tab 12/13/23 12/19/23 [Vitamin B12] Levothyroxine Sodium [Synthroid] 75 mcg PO DAILY #30 tablet 12/13/23 12/19/23 Metoprolol Succinate [Toprol Xl] 50 mg PO QPM #30 tab 12/13/23 12/19/23 Olmesartan Medoxomil [Benicar] 20 mg PO DAILY #30 tab 12/13/23 12/19/23 Vit No.170/Iron/Folic 1 each PO DAILY #30 tablet 12/13/23 12/19/23 [Dermacinrx Prenatrix Caplet] Rosuvastatin Calcium [Crestor] 5 mg PO DAILY #30 tab 12/13/23 12/19/23 amLODIPine [Norvasc] 5 mg PO DAILY #30 tab 12/13/23 12/19/23 cloNIDine [Catapres] 0.1 mg PO DAILY #30 tab 12/13/23 12/19/23 Albuterol 2.5 mg INH Q4HR PRN 30 Days ml 12/25/23 levoFLOXacin [Levofloxacin] 750 mg PO DAILY 1 Days #1 tab 12/25/23 Sulfamethox/Trimeth 800/160 1 each PO BID #14 tablet 01/22/24 [Bactrim Ds 800/160] - Allergies Allergies/Adverse Reactions: Allergies Allergy/AdvReac Type Severity Reaction Status Date / Time strawberry Allergy Unknown Verified 01/22/24 10:43 venom-honey bee Allergy swelling Verified 01/22/24 10:43 [bee venom (honey bee)] - Social History Does the pt smoke?: No Smoking Status: Never smoker Does the pt drink ETOH?: Yes Does the pt have substance abuse?: No - Immunizations Immunizations are current?: Yes - POLST Patient has POLST: Yes POLST Status: DNR PD ED PE NORMAL - Vitals Vital signs reviewed: Yes - General General: No acute distress, Well developed/nourished, Other (Alert, grossly intact) - HEENT HEENT: Atraumatic, PERRL, EOMI, Moist mucous membranes - Neck Neck: Supple, no meningeal sign - Cardiac Cardiac: Strong equal pulses - Respiratory Respiratory: No respiratory distress - Derm Derm: Warm and dry, Other (Chronic appearing, moderate erythema bilateral anterior tibial areas with skin peeling. Skin tear over left anterior tibial area with old appearing dressing stuck to it. No purulent drainage. Increased erythema surrounding the wound about a 2-1/2 cm margin. No fluctuance or induration. ) - Extremities Extremities: No deformity, Other (Trace pitting edema bilateral lower extremities symmetrically.) - Neuro Neuro: Other (Alert, grossly intact.) - Psych Psych: Normal mood, Normal affect Results - Vitals Vitals: Vital Signs - 24 hr 01/22/24 01/22/24 10:38 10:40 Temperature 36.3 C L 37.1 C Heart Rate 85 93 Respiratory 16 20 Rate Blood Pressure 147/95 H 142/97 H O2 Saturation 97 91 L Oxygen O2 Source Room air - Labs Labs: Laboratory Tests 01/22/24 10:46 WBC 6.3 RBC 3.68 L Hgb 10.0 L Hct 34.1 L MCV 92.7 MCH 27.2 MCHC 29.3 L RDW 17.0 H Plt Count 250 MPV 9.3 Neut # (Auto) 4.6 Lymph # (Auto) 0.7 L [place] # (Auto) 0.7 Eos # (Auto) 0.2 Baso # (Auto) 0.1 Absolute Nucleated RBC 0.00 Nucleated RBC % 0.0 PD Medical Decision Making - ED course Complexity details: reviewed old records, considered differential, d/w patient ED course: I reminded the patient that she is not an emergent case and as such, she is not first priority to be seen in the emergency department. However, we are happy to take care of her in order of acuity as we do for all other patients. I have discussed with the patient that the dressing should not be left in place for 5 days, as is evident by the fact that it is the exact same dressing that was placed when I saw her 5 days ago and is very much adhesed to the patient's wound. Patient now states that she thinks her daughter may have changed the dressing in between, although it does not have the appearance of having been changed. The patient has chronic erythema in her anterior tibial areas which appears to be due to chronic peripheral vascular disease, but there is some increased erythema surrounding the wound. This may just simply be inflammation from the wound itself and the lack of dressing change, but given that there is increased tenderness and increased erythema we will go ahead and treat with antibiotics. There is no fluctuance, drainage or induration to indicate underlying abscess. I discussed the need for daily dressing changes with the patient and have asked her to pass this information on to her daughter to be sure that the wound is able to heal appropriately. We have discussed the usual indications for follow-up and return. Departure - Departure Disposition: 01 Home, Self Care Clinical Impression: Cellulitis Qualifiers: Site of cellulitis: extremity Site of cellulitis of extremity: lower extremity Laterality: left Qualified Code(s): L03.116 - Cellulitis of left lower limb Condition: Stable Instructions: ED Infec Skin Cellulitis Prescriptions: Sulfamethox/Trimeth 800/160 [Bactrim Ds 800/160] 1 each PO BID #14 tablet Comments: Your wound was examined today and did not appear to have had the dressing changed since we saw you 5 days ago. It is important that you change the dressing every day until the wound scabs over, at which time you can probably leave it open to air unless it is catching on stuff. You may apply an antibiotic ointment such as Neosporin to help prevent sticking of the gauze. You have redness of both legs, due to peripheral vascular disease, and there is a small rim of increased redness around your wound. This could simply be response to the wound itself or could be an early infection from the dressing not being changed. We will start you on antibiotics as a precaution. We have also placed a new dressing with antibiotic ointment and again, you should change this every day. Please have your daughter help you if you do not feel you can do it yourself. Your prescription for antibiotics has been electronically transmitted to the [facility] pharmacy in [place]. Please pick the prescription up today as you need to take a second dose of antibiotics this afternoon/evening. As we have discussed, every patient in the emergency department is seen according to acuity (serious of illness) and as such, you may have to wait if you are not in the most serious patient in the emergency department. This is not being you are being ignored or neglected. If you do not like this set up, you are also most welcome to be seen by your primary doctor for nonemergent complaints. If you feel you have a medical emergency going forward, please do not hesitate to return to the emergency department. Forms: PCP List Discharge Date/Time: 01/22/24 12:40
[2024-01-22] MEDS: BACITRACIN ZINC OINT 1 PACKET TOP STA (12:17)
[2024-01-22] MEDS: SULFAMETH/TRIMETH DS 800/160 MG TABLET PO STA (12:17)
== END 2024-01-22 12:40 | disposition home or self-care (01) ==
LOC: ED 10:13
DX: L03.116 Cellulitis of left lower limb (principal); I10 Essential (primary) hypertension; E78.00 Pure hypercholesterolemia, unspecified; I48.91 Unspecified atrial fibrillation; Z79.899 Other long term (current) drug therapy; Z79.01 Long term (current) use of anticoagulants; Z79.82 Long term (current) use of aspirin; Z66 Do not resuscitate
CPT/HCPCS: 36415; 85025; 99283; A9270

== ENCOUNTER 2024-01-28 12:55 | Emergency (ER) | payer MEDICARE ==
[2024-01-28] MEDS ORDERED: ceFAZolin 2 GM/50 ML 2 GM/50 ML BAG IV STA (13:24)
--- NOTE | 2024-01-28 13:27 | ED Physician Documentation ---
History of Present Illness - Stated complaint Stated Complaint: LT LEG SWELLING/PX - Chief complaint Chief Complaint: Ext Problem - History obtained from History obtained from: Patient, Family - Additonal information Additional information: 83-year-old woman with history of A-fib on DOAC, peripheral vascular disease, had a leg injury on the left leg about 11 days ago. She was seen here and subsequently came back 6 days ago with a wound infection and started on Bactrim. She has been compliant with the Bactrim since then but the wound has a worsening appearance. She felt ill 2 days ago but yesterday today is feeling fine without dizziness, fevers, shaking chills, or weakness. 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 : None HEENT: None Psych: Anxiety Musculoskeletal: Other Derm: Other - Past Surgical History Past Surgical History: Yes General: Appendectomy Ortho: Amputation Cardiovascular: Vascular surgery HEENT: Tonsil/Adenoidectomy - Present Medications Home Medications: Ambulatory Orders Medication Instructions Recorded Confirmed Zolpidem Tartrate 10 mg PO QPM PRN 03/19/17 12/19/23 Triamcinolone 0.5% Cream [Kenalog 1 applic TOP BID #15 gm 11/17/23 12/19/23 0.5% Cream] oxyCODONE [Roxicodone] 5 mg PO Q6H PRN #20 tablet 11/17/23 12/19/23 Apixaban [Eliquis] 5 mg ORAL BID #60 tab 12/13/23 12/19/23 Aspirin [Aspirin Regimen] 81 mg PO DAILY #30 tab 12/13/23 12/19/23 Cholecalciferol [Vitamin D3] 25 mcg PO DAILY #0 12/13/23 12/19/23 Cyanocobalamin (Vitamin B-12) 500 mcg PO DAILY #30 tab 12/13/23 12/19/23 [Vitamin B12] Levothyroxine Sodium [Synthroid] 75 mcg PO DAILY #30 tablet 12/13/23 12/19/23 Metoprolol Succinate [Toprol Xl] 50 mg PO QPM #30 tab 12/13/23 12/19/23 Olmesartan Medoxomil [Benicar] 20 mg PO DAILY #30 tab 12/13/23 12/19/23 Vit No.170/Iron/Folic 1 each PO DAILY #30 tablet 12/13/23 12/19/23 [Dermacinrx Prenatrix Caplet] Rosuvastatin Calcium [Crestor] 5 mg PO DAILY #30 tab 12/13/23 12/19/23 amLODIPine [Norvasc] 5 mg PO DAILY #30 tab 12/13/23 12/19/23 cloNIDine [Catapres] 0.1 mg PO DAILY #30 tab 12/13/23 12/19/23 Albuterol 2.5 mg INH Q4HR PRN 30 Days ml 12/25/23 levoFLOXacin [Levofloxacin] 750 mg PO DAILY 1 Days #1 tab 12/25/23 Sulfamethox/Trimeth 800/160 1 each PO BID #14 tablet 01/22/24 [Bactrim Ds 800/160] Mupirocin 2% Oint [Bactroban 2% 1 applic TOP BID #22 gm 01/28/24 Oint] cephALEXin [Keflex] 500 mg PO Q6H #40 cap 01/28/24 - Allergies Allergies/Adverse Reactions: Allergies Allergy/AdvReac Type Severity Reaction Status Date / Time strawberry Allergy Unknown Verified 01/28/24 13:16 venom-honey bee Allergy swelling Verified 01/28/24 13:16 [bee venom (honey bee)] - Social History Does the pt smoke?: No Smoking Status: Never smoker Does the pt drink ETOH?: Yes Does the pt have substance abuse?: No - Immunizations Immunizations are current?: Yes - POLST Patient has POLST: Yes POLST Status: DNR PD ED PE NORMAL - Vitals Vital signs reviewed: Yes (She is hypotensive and tachycardic, A-fib on the monitor) - General General: Alert and oriented X 3, No acute distress - Neck Neck: Supple, no meningeal sign, No bony TTP - Cardiac Cardiac: Other (Irregularly irregular) - Respiratory Respiratory: No respiratory distress - Abdomen Abdomen: Non tender - Extremities Extremities: Other (There is a necrotic wound to the anterior left nguyen measuring approximately 4 x 3 cm. It was cultured during initial examination. She has cellulitis almost up to the knee and down to the ankle. I am not able to feel pedal pulses but there is good pedal cap refill on the left.) - Neuro Neuro: Alert and oriented X 3, Normal speech Eye Opening: Spontaneous Motor: Obeys Commands Verbal: Oriented GCS Score: 15 Results - Vitals Vitals: Vital Signs - 24 hr 01/28/24 01/28/24 13:09 14:19 Temperature 36.5 C Heart Rate 108 H 85 Respiratory 16 21 Rate Blood Pressure 85/59 L 105/59 L O2 Saturation 94 97 Oxygen O2 Source Room air - Labs Labs: Microbiology 01/28/24 13:20 Wound Culture - Preliminary Leg - Left Laboratory Tests 01/28/24 01/28/24 01/28/24 13:30 13:30 13:30 WBC 6.3 RBC 3.38 L Hgb 9.2 L Hct 30.7 L MCV 90.8 MCH 27.2 MCHC 30.0 L RDW 16.9 H Plt Count 300 MPV 9.0 Neut # (Auto) 4.7 Lymph # (Auto) 0.8 L [place] # (Auto) 0.6 Eos # (Auto) 0.1 Baso # (Auto) 0.1 Absolute Nucleated RBC 0.00 Nucleated RBC % 0.0 Sodium 135 Potassium 4.3 Chloride 106 Carbon Dioxide 22 Anion Gap 7.0 BUN 22 H Creatinine 1.2 Estimated GFR (MDRD) 43 L Glucose 86 Lactic Acid 0.8 Calcium 9.5 Total Bilirubin 0.3 AST 22 ALT 11 Alkaline Phosphatase 77 Total Protein 6.9 Albumin 3.8 Globulin 3.1 Albumin/Globulin Ratio 1.2 Procalcitonin Immunoas 01/28/24 13:30 WBC RBC Hgb Hct MCV MCH MCHC RDW Plt Count MPV Neut # (Auto) Lymph # (Auto) [place] # (Auto) Eos # (Auto) Baso # (Auto) Absolute Nucleated RBC Nucleated RBC % Sodium Potassium Chloride Carbon Dioxide Anion Gap BUN Creatinine Estimated GFR (MDRD) Glucose Lactic Acid Calcium Total Bilirubin AST ALT Alkaline Phosphatase Total Protein Albumin Globulin Albumin/Globulin Ratio Procalcitonin Immunoas 0.09 PD Medical Decision Making - ED course ED course: She presents with left leg cellulitis and left leg wound. She is on Bactrim which notably does not cover strep. A wound culture was taken. On triage she was modestly hypotensive but this quickly improved with IV fluids and she appeared well. Labs were done to evaluate for possible sepsis, and this is unlikely with a normal white count, normal lactate, and normal procalcitonin. She received 2 g of Ancef here. Initial wound culture demonstrated gram- positive cocci in pairs and clusters. Departure - Departure Disposition: 01 Home, Self Care Clinical Impression: Left leg cellulitis, Leg wound, left Condition: Good Instructions: Cellulitis Dc Prescriptions: Mupirocin 2% Oint [Bactroban 2% Oint] 1 applic TOP BID #22 gm cephALEXin [Keflex] 500 mg PO Q6H #40 cap Comments: At this point your blood work is looking pretty normal with no elevated markers that would suggest that you are septic. Follow-up with Dr. Spring and I would recommend a referral to wound care. In the meantime I sent a new prescription for different antibiotics to the [facility] in [place]. Until you get into the wound care clinic you can wash briefly with soap and water and then apply the topical antibiotic that I am prescribing, and then a nonstick dressing (such as Telfa brand) and a loose wrap. You should do this once a day. We are performing a wound culture, the results should be done in 48-72 hours. If antibiotic change is necessary we will call you. Return if worse in the meantime, especially if you develop increased pain, fevers, cannot keep down the medication. Otherwise follow-up with your physician in approximately 2-3 days.
[2024-01-28] MEDS: SODIUM CHLORIDE 0.9% 1,000 ML IV STA (13:42)
[2024-01-28] MEDS: ceFAZolin (2G) 2 GM in SODIUM CHLORIDE 0.9% MINIBAG 100 ML IV STA (13:44)
[2024-01-28 13:46] LABS: BASOPHILS # (AUTO) 0.1 10^3/uL (0.0-0.1); BASOPHILS % (AUTO) 0.9 %; EOSINOPHILS # (AUTO) 0.1 10^3/uL (0.0-0.7); EOSINOPHILS % (AUTO) 2.2 %; HCT - HEMATOCRIT 30.7 % (37.0-47.0); HGB - HEMOGLOBIN 9.2 g/dL (12.0-16.0); LYMPHOCYTES # (AUTO) 0.8 10^3/uL (1.5-3.5); MEAN CORPUSCULAR HEMOGLOBIN 27.2 pg (27.0-31.0); MEAN CORPUSCULAR VOLUME 90.8 fL (81.0-99.0); MONOCYTES # (AUTO) 0.6 10^3/uL (0.0-1.0); MONOCYTES % (AUTO) 9.2 %; NEUTROPHILS # (AUTO) 4.7 10^3/uL (1.5-6.6); NEUTROPHILS % (AUTO) 74.4 %; PLT - PLATELET COUNT 300 10^3/uL (130-450); RED BLOOD COUNT 3.38 10^6/uL (4.20-5.40); RED CELL DISTRIBUTION WIDTH 16.9 % (12.0-15.0); WHITE BLOOD COUNT 6.3 x10^3/uL (4.8-10.8)
[2024-01-28 14:05] LABS: ALBUMIN 3.8 g/dL (3.2-5.5); ALBUMIN/GLOBULIN RATIO 1.2 (1.0-2.2); BILIRUBIN,TOTAL 0.3 mg/dL (0.2-1.0); CALCIUM 9.5 mg/dL (8.5-10.3); CREATININE 1.2 mg/dL (0.6-1.3); POTASSIUM 4.3 mmol/L (3.5-4.5); TOTAL PROTEIN 6.9 g/dL (6.4-8.9)
[2024-01-28 14:46] VITALS: BP 125/73; O2SAT 94
--- NOTE | 2024-01-30 12:53 | ED Physician Documentation ---
ED Addendum - Addendum Addendum: 01/30/24 12:53 Culture reviewed, she has MSSA resistant only to erythromycin, gentamicin, and penicillin. Keflex should be the reasonable choice.
== END 2024-01-28 15:06 | disposition home or self-care (01) ==
LOC: ED 12:55
DX: L03.116 Cellulitis of left lower limb (principal); B95.61 Methicillin susceptible Staphylococcus aureus infection as the cause of diseases classified elsewhere; S81.802A Unspecified open wound, left lower leg, initial encounter; X58.XXXA Exposure to other specified factors, initial encounter; I95.9 Hypotension, unspecified; Z66 Do not resuscitate
CPT/HCPCS: 36415; 80053; 83605; 84145; 85025; 87040; 87070; 87181; 87205; 96365; 99284

== ENCOUNTER 2024-02-22 13:44 | Emergency (ER) | payer MEDICARE ==
[2024-02-22 13:59] VITALS: BP 142/92; O2SAT 99
--- NOTE | 2024-02-22 16:07 | ED Physician Documentation ---
History of Present Illness - Stated complaint Stated Complaint: LT LEG PX - Chief complaint Chief Complaint: Wound - Additonal information Additional information: 83-year-old female with left wound to leg. Ongoing x 1 month. Accompanied by daughter who is present at bedside. Endorses for peripheral vascular disease. Initially had a varicosity on the anterior aspect of the left leg. Ruptured spontaneously and received treatment here. Subsequently developed ulceration with discoloration but no heat, fever, chills, nausea or vomiting. Have follow- up with wound care however family expresses concern about possible infection. Patient reports significant pain with physical activity to the left leg. Denies any history of blood clots. Review of Systems Constitutional: denies: Fever Eyes: denies: Loss of vision Ears: denies: Loss of hearing Nose: denies: Rhinorrhea / runny nose Throat: denies: Dental pain / toothache Cardiac: denies: Chest pain / pressure Respiratory: denies: Dyspnea GI: denies: Abdominal Pain : denies: Dysuria Skin: reports: Other (Wound). 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 : None HEENT: None Psych: Anxiety Musculoskeletal: Other Derm: Other - Past Surgical History Past Surgical History: Yes General: Appendectomy Ortho: Amputation Cardiovascular: Vascular surgery HEENT: Tonsil/Adenoidectomy - Present Medications Home Medications: Ambulatory Orders Medication Instructions Recorded Confirmed Zolpidem Tartrate 10 mg PO QPM PRN 03/19/17 12/19/23 Triamcinolone 0.5% Cream [Kenalog 1 applic TOP BID #15 gm 11/17/23 12/19/23 0.5% Cream] oxyCODONE [Roxicodone] 5 mg PO Q6H PRN #20 tablet 11/17/23 12/19/23 Apixaban [Eliquis] 5 mg ORAL BID #60 tab 12/13/23 12/19/23 Aspirin [Aspirin Regimen] 81 mg PO DAILY #30 tab 12/13/23 12/19/23 Cholecalciferol [Vitamin D3] 25 mcg PO DAILY #0 12/13/23 12/19/23 Cyanocobalamin (Vitamin B-12) 500 mcg PO DAILY #30 tab 12/13/23 12/19/23 [Vitamin B12] Levothyroxine Sodium [Synthroid] 75 mcg PO DAILY #30 tablet 12/13/23 12/19/23 Metoprolol Succinate [Toprol Xl] 50 mg PO QPM #30 tab 12/13/23 12/19/23 Olmesartan Medoxomil [Benicar] 20 mg PO DAILY #30 tab 12/13/23 12/19/23 Vit No.170/Iron/Folic 1 each PO DAILY #30 tablet 12/13/23 12/19/23 [Dermacinrx Prenatrix Caplet] Rosuvastatin Calcium [Crestor] 5 mg PO DAILY #30 tab 12/13/23 12/19/23 amLODIPine [Norvasc] 5 mg PO DAILY #30 tab 12/13/23 12/19/23 cloNIDine [Catapres] 0.1 mg PO DAILY #30 tab 12/13/23 12/19/23 Albuterol 2.5 mg INH Q4HR PRN 30 Days ml 12/25/23 levoFLOXacin [Levofloxacin] 750 mg PO DAILY 1 Days #1 tab 12/25/23 Mupirocin 2% Oint [Bactroban 2% 1 applic TOP BID #22 gm 01/28/24 Oint] Doxycycline Hyclate 100 mg PO BID #20 tab 02/22/24 - Allergies Allergies/Adverse Reactions: Allergies Allergy/AdvReac Type Severity Reaction Status Date / Time strawberry Allergy Unknown Verified 02/22/24 13:51 venom-honey bee Allergy swelling Verified 02/22/24 13:51 [bee venom (honey bee)] - Social History Does the pt smoke?: No Smoking Status: Never smoker Does the pt drink ETOH?: Yes Does the pt have substance abuse?: No - Immunizations Immunizations are current?: Yes - POLST Patient has POLST: Yes POLST Status: DNR PD ED PE NORMAL - HEENT HEENT: Atraumatic - Respiratory Respiratory: No respiratory distress - Female Female : Deferred - Rectal Rectal: Deferred - Back Back: No CVA TTP - Derm Derm: Other (3 cm x 4 cm ulceration on the anterior left nguyen. There is some mild erythema and exudates but no rubor noted. Chronic stasis dermatitis changes are noted to the leg generally. DP PT pulses palpable.) Results - Vitals Vitals: Vital Signs - 24 hr 02/22/24 02/22/24 13:51 16:15 Temperature 36.2 C L Heart Rate 99 Respiratory 16 17 Rate Blood Pressure 142/92 H O2 Saturation 99 Oxygen O2 Source Room air PD Medical Decision Making - ED course Complexity details: considered differential, d/w patient, d/w family ED course: Patient 83-year-old female presenting with ulceration to the anterior aspect of her left leg. Afebrile, hemodynamically stable. Denied symptoms would be of concern for systemic infection. Exam demonstrated a ulceration on the anterior aspect of her left nguyen with some purulence and erythema but noRubor fluctuance. There were general stasis changes noted to the leg. Wound care given here in the emergency department. Will initiate course doxycycline and have patient follow-up with primary care/wound care. Departure - Departure Disposition: 01 Home, Self Care Clinical Impression: Leg ulcer, left Prescriptions: Doxycycline Hyclate 100 mg PO BID #20 tab Comments: Thank you for allowing us to care for you today at [facility]. Please follow-up with your primary care doctor and outpatient wound care team. Have sent a prescription for an oral antibiotic to your preferred pharmacy. Please increase your intake and fiber for foods and natural probiotics while on antibiotics. If it anytime you have new or worsening symptoms please not hesitate to return. Forms: PCP List Discharge Date/Time: 02/22/24 16:32
[2024-02-22] MEDS: DOXYCYCLINE 100 MG TABLET PO STA (16:13)
== END 2024-02-22 16:32 | disposition home or self-care (01) ==
LOC: ED 13:44
DX: L97.829 Non-pressure chronic ulcer of other part of left lower leg with unspecified severity (principal); I87.2 Venous insufficiency (chronic) (peripheral)
CPT/HCPCS: 99283; 99284; A9270

== ENCOUNTER 2024-03-12 09:23 | Emergency (ER) | payer MEDICARE ==
[2024-03-12 10:06] LABS: BASOPHILS # (AUTO) 0.1 10^3/uL (0.0-0.1); BASOPHILS % (AUTO) 1.4 %; EOSINOPHILS # (AUTO) 0.3 10^3/uL (0.0-0.7); EOSINOPHILS % (AUTO) 4.9 %; HCT - HEMATOCRIT 38.2 % (37.0-47.0); HGB - HEMOGLOBIN 11.5 g/dL (12.0-16.0); LYMPHOCYTES # (AUTO) 1.2 10^3/uL (1.5-3.5); LYMPHOCYTES % (AUTO) 21.3 %; MEAN CORPUSCULAR HEMOGLOBIN 24.7 pg (27.0-31.0); MEAN CORPUSCULAR HGB CONC 30.1 g/dL (32.0-36.0); MONOCYTES # (AUTO) 0.4 10^3/uL (0.0-1.0); MONOCYTES % (AUTO) 7.2 %; NEUTROPHILS # (AUTO) 3.7 10^3/uL (1.5-6.6); PLT - PLATELET COUNT 303 10^3/uL (130-450); RED BLOOD COUNT 4.66 10^6/uL (4.20-5.40); RED CELL DISTRIBUTION WIDTH 16.4 % (12.0-15.0); WHITE BLOOD COUNT 5.7 x10^3/uL (4.8-10.8)
[2024-03-12 10:24] LABS: ALBUMIN 4.2 g/dL (3.2-5.5); ALBUMIN/GLOBULIN RATIO 1.2 (1.0-2.2); BILIRUBIN,TOTAL 0.4 mg/dL (0.2-1.0); CALCIUM 9.9 mg/dL (8.5-10.3); POTASSIUM 3.9 mmol/L (3.5-4.5); TOTAL PROTEIN 7.7 g/dL (6.4-8.9)
--- NOTE | 2024-03-12 10:47 | XRAY Report ---
PROCEDURE: Chest 1V INDICATIONS: cough TECHNIQUE: One view of the chest was acquired. COMPARISON: . FINDINGS: Surgical changes and devices: None. Lungs and pleura: Resolution of previous left-sided pneumonia. Mild bibasilar atelectasis and mild b ilateral pleural effusions, right greater than left. Mediastinum: Mediastinal contours appear normal. Cardiomegaly, as before Bones and chest wall: No suspicious bony lesions. Overlying soft tissues appear unremarkable. IMPRESSION: Findings may represent mild compensated congestive heart failure. Bibasilar atelectasis and bilateral pleural effusions. Reviewed by: Ronald Lee MD on 03/12/2024 10:45 AM PDT Approved by: Ronald Lee MD on 03/12/2024 10:45 AM PDT Station ID: [id number]
[2024-03-12 11:13] LABS: B. PARAPERTUSSIS- RESP PCR PAN NOT DETECTED; B. PERTUSSIS- RESP PCR PANEL NOT DETECTED; C. PNEUMONIAE- RESP PCR PANEL NOT DETECTED; CORONAVIRUS 229E-RESP PCR NOT DETECTED; CORONAVIRUS HKU1-RESP PCR NOT DETECTED; CORONAVIRUS NL63-RESP PCR NOT DETECTED; CORONAVIRUS OC43-RESP PCR NOT DETECTED; HUMAN METAPNEUMOVIRUS NOT DETECTED; INFLUENZA A- RESP PCR PANEL NOT DETECTED; INFLUENZA B - RESP PCR PANEL NOT DETECTED; M. PNEUMONIAE- RESP PCR PANEL NOT DETECTED; PARAINFLUENZA VIRUS 1 NOT DETECTED; PARAINFLUENZA VIRUS 2 NOT DETECTED; PARAINFLUENZA VIRUS 3 NOT DETECTED; PARAINFLUENZA VIRUS 4 NOT DETECTED; RHINOVIRUS/ENTEROVIRUS NOT DETECTED; RSV- RESP PCR PANEL NOT DETECTED; SARS-CoV-2 -RESP PCR PANEL NOT DETECTED
--- NOTE | 2024-03-12 11:30 | ED Physician Documentation ---
History of Present Illness - Stated complaint Stated Complaint: CONGESTION,GEN WEAKNESS,COUGH - Chief complaint Chief Complaint: Resp - History obtained from History obtained from: Patient - Additonal information Additional information: 83-year-old woman presents with her daughter for about 4 days worth of cough and fatigue. There is no associated chest pain or increased pedal edema with it. She does have chronic pedal edema. No fevers. No sick contacts. 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 : None HEENT: None Psych: Anxiety Musculoskeletal: Other Derm: Other - Past Surgical History Past Surgical History: Yes General: Appendectomy Ortho: Amputation Cardiovascular: Vascular surgery HEENT: Tonsil/Adenoidectomy - Present Medications Home Medications: Ambulatory Orders Medication Instructions Recorded Confirmed Zolpidem Tartrate 10 mg PO QPM PRN 03/19/17 03/12/24 Triamcinolone 0.5% Cream [Kenalog 1 applic TOP BID #15 gm 11/17/23 03/12/24 0.5% Cream] Apixaban [Eliquis] 5 mg ORAL BID #60 tab 12/13/23 03/12/24 Aspirin [Aspirin Regimen] 81 mg PO DAILY #30 tab 12/13/23 03/12/24 Cholecalciferol [Vitamin D3] 25 mcg PO DAILY #0 12/13/23 03/12/24 Cyanocobalamin (Vitamin B-12) 500 mcg PO DAILY #30 tab 12/13/23 03/12/24 [Vitamin B-12] Olmesartan Medoxomil [Benicar] 20 mg PO DAILY #30 tab 12/13/23 03/12/24 Vit No.170/Iron/Folic 1 each PO DAILY #30 tablet 12/13/23 03/12/24 [Dermacinrx Prenatrix Caplet] Rosuvastatin Calcium [Crestor] 5 mg PO DAILY #30 tab 12/13/23 03/12/24 amLODIPine [Norvasc] 5 mg PO DAILY #30 tab 12/13/23 03/12/24 cloNIDine [Catapres] 0.1 mg PO DAILY #30 tab 12/13/23 03/12/24 Mupirocin 2% Oint [Bactroban 2% 1 applic TOP BID #22 gm 01/28/24 03/12/24 Oint] guaiFENesin/CODEINE [Robitussin AC] 5 - 10 ml PO Q6H PRN #120 ml 03/12/24 - Allergies Allergies/Adverse Reactions: Allergies Allergy/AdvReac Type Severity Reaction Status Date / Time strawberry Allergy Unknown Verified 03/12/24 10:12 venom-honey bee Allergy swelling Verified 03/12/24 10:12 [bee venom (honey bee)] - Social History Does the pt smoke?: No Smoking Status: Never smoker Does the pt drink ETOH?: Yes Does the pt have substance abuse?: No - Immunizations Immunizations are current?: Yes - POLST Patient has POLST: Yes POLST Status: DNR PD ED PE NORMAL - Vitals Vital signs reviewed: Yes - General General: Alert and oriented X 3, No acute distress - Cardiac Cardiac: No murmur, Other (Irregularly irregular) - Respiratory Respiratory: No respiratory distress, Clear bilaterally - Abdomen Abdomen: Non tender Results - Vitals Vitals: Vital Signs - 24 hr 03/12/24 03/12/24 10:08 11:34 Temperature 36.7 C 35.9 C L Heart Rate 82 80 Respiratory 16 16 Rate Blood Pressure 122/84 H 127/87 H O2 Saturation 96 100 Oxygen O2 Source Room air - Labs Labs: Laboratory Tests 03/12/24 03/12/24 03/12/24 10:01 10:01 10:15 WBC 5.7 RBC 4.66 Hgb 11.5 L Hct 38.2 MCV 82.0 MCH 24.7 L MCHC 30.1 L RDW 16.4 H Plt Count 303 MPV 9.0 Neut # (Auto) 3.7 Lymph # (Auto) 1.2 L [place] # (Auto) 0.4 Eos # (Auto) 0.3 Baso # (Auto) 0.1 Absolute Nucleated RBC 0.00 Nucleated RBC % 0.0 Sodium 136 Potassium 3.9 Chloride 102 Carbon Dioxide 27 Anion Gap 7.0 BUN 17 Creatinine 1.0 Estimated GFR (MDRD) 53 L Glucose 117 H Calcium 9.9 Total Bilirubin 0.4 AST 32 ALT 11 Alkaline Phosphatase 59 Total Protein 7.7 Albumin 4.2 Globulin 3.5 Albumin/Globulin Ratio 1.2 Lipase 104 H Nasal Adenovirus (PCR) NOT DETECTED Nasal B. parapertussis DNA (PCR) NOT DETECTED Nasal Coronavir 229E PCR NOT DETECTED Nasal Coronavir HKU1 PCR NOT DETECTED Nasal Coronavir NL63 PCR NOT DETECTED Nasal Coronavir OC43 PCR NOT DETECTED Nasal Enterovir/Rhinovir PCR NOT DETECTED Nasal Influenza B PCR NOT DETECTED Nasal Influenza A PCR NOT DETECTED Nasal Parainfluen 1 PCR NOT DETECTED Nasal Parainfluen 2 PCR NOT DETECTED Nasal Parainfluen 3 PCR NOT DETECTED Nasal Parainfluen 4 PCR NOT DETECTED Nasal RSV (PCR) NOT DETECTED Nasal B.pertussis DNA PCR NOT DETECTED Nasal C.pneumoniae (PCR) NOT DETECTED Tom Human Metapneumo PCR NOT DETECTED Nasal M.pneumoniae (PCR) NOT DETECTED Nasal SARS-CoV-2 (PCR) NOT DETECTED - Rads (name of study) 1v cxr Relevant Findings:: Final report received (Single view chest x-ray demonstrates mild compensated heart failure with bibasilar atelectasis and bilateral pleural effusions. This is much improved compared to prior x-ray obtained December 18 of this year.), EMP independent interpretation of test PD Medical Decision Making - ED course ED course: 83-year-old woman with chronic A-fib presents with nonproductive cough. X-ray showing probably chronic pleural effusions. Her symptomatology is not suggestive of acute heart failure and she does not appear significantly fluid overloaded. Her symptomatology would suggest more of a infectious process and they have doxycycline at home. Departure - Departure Disposition: 01 Home, Self Care Clinical Impression: Bronchitis Condition: Good Record reviewed to determine appropriate education?: Yes Instructions: ED Upper Resp Infec Abx Tx Prescriptions: guaiFENesin/CODEINE [Robitussin AC] 5 - 10 ml PO Q6H PRN #120 ml PRN Reason: Cough Comments: You can start the doxycycline you have at home. Would take it for about 5 days. In addition I sent a prescription for codeine to the [facility] pharmacy at the corner of [address] [place] [address] [address] [facility]. Do not drink or drive with that. Follow-up with your doctor tomorrow as previously scheduled. Forms: PCP List Discharge Date/Time: 03/12/24 11:35
[2024-03-12 11:35] VITALS: BP 127/87; O2SAT 100
== END 2024-03-12 11:35 | disposition home or self-care (01) ==
LOC: ED 09:23
DX: J40 Bronchitis, not specified as acute or chronic (principal); Z66 Do not resuscitate
CPT/HCPCS: 36415; 80053; 83690; 85025; 87633; 99284

== ENCOUNTER 2024-04-07 16:35 | Outpatient (CLI) | payer MEDICARE | END 2024-04-07 23:59 | disposition critical access hospital (66) | LOC: EMS 16:35 | DX: R53.1 Weakness (principal); R63.0 Anorexia; R11.0 Nausea | CPT/HCPCS: A0425; A0429 ==

== ENCOUNTER 2024-04-07 16:39 | Emergency (ER) | payer MEDICARE ==
--- NOTE | 2024-04-07 17:16 | ED Physician Documentation ---
PD HPI URI - Stated complaint Stated Complaint: GENERAL WEAKNESS - Chief complaint Chief Complaint: General - History obtained from History obtained from: Patient - History of Present Illness Timing - onset: How many days ago (3) Timing duration: Days (3) Timing details: Gradual onset, Still present Associated symptoms: No: Fever, Nasal congestion, Rhinorrhea, Chest pain, Dyspnea Contributing factors: No: Sick contact Improves by: Rest Worsened by: Activity Similar symptoms before: Diagnosis (respiratory failure and CHF, afib with RVR.) Recently seen: Admitted (last month for CHF/resp failure.) - Additional information Additional information: Estefanía Villanueva is an 83-year-old female with a history of atrial fibrillation with rapid ventricular response who is on Coumadin and who has had a history of congestive heart failure. She is coming to the emergency department today with chief complaint of weakness. She has not had diarrhea or vomiting. She simply feels weak. She does not endorse being more short of breath than usual. She does not endorse having more swelling of her lower extremities than usual. Review of Systems Constitutional: reports: Fatigue. denies: Fever Eyes: denies: Decreased vision Ears: denies: Ear pain Nose: denies: Rhinorrhea / runny nose, Congestion Throat: denies: Sore throat Cardiac: denies: Chest pain / pressure, Palpitations Respiratory: reports: Dyspnea (similar to always), Cough GI: denies: Abdominal Pain, Nausea, Vomiting, Constipation, Diarrhea : denies: Dysuria, Frequency Skin: denies: Rash Musculoskeletal: reports: Extremity pain (is under treatment for a leg wound sees the wound clinic), Extremity swelling (similar to always and not worse than usual). denies: Neck pain, Back pain Neurologic: reports: Generalized weakness. 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 : None HEENT: None Psych: Anxiety Musculoskeletal: Other Derm: Other - Past Surgical History Past Surgical History: Yes General: Appendectomy Ortho: Amputation Cardiovascular: Vascular surgery HEENT: Tonsil/Adenoidectomy - Present Medications Home Medications: Ambulatory Orders Medication Instructions Recorded Confirmed Zolpidem Tartrate 10 mg PO QPM PRN 03/19/17 03/22/24 Apixaban [Eliquis] 5 mg ORAL BID #60 tab 12/13/23 03/23/24 Aspirin [Aspirin Regimen] 81 mg PO DAILY #30 tab 12/13/23 03/23/24 Cholecalciferol [Vitamin D3] 25 mcg PO DAILY #0 12/13/23 03/23/24 Cyanocobalamin (Vitamin B-12) 500 mcg PO DAILY #30 tab 12/13/23 03/23/24 [Vitamin B-12] Olmesartan Medoxomil [Benicar] 20 mg PO DAILY #30 tab 12/13/23 03/23/24 Vit No.170/Iron/Folic 1 each PO DAILY #30 tablet 12/13/23 03/23/24 [Dermacinrx Prenatrix Caplet] Rosuvastatin Calcium [Crestor] 5 mg PO DAILY #30 tab 12/13/23 03/22/24 cloNIDine [Catapres] 0.1 mg PO DAILY #30 tab 12/13/23 03/22/24 Mupirocin 2% Oint [Bactroban 2% 1 applic TOP BID #22 gm 01/28/24 03/23/24 Oint] - Allergies Allergies/Adverse Reactions: Allergies Allergy/AdvReac Type Severity Reaction Status Date / Time strawberry Allergy Unknown Verified 04/07/24 17:11 venom-honey bee Allergy swelling Verified 04/07/24 17:11 [bee venom (honey bee)] - Social History Does the pt smoke?: No Smoking Status: Never smoker Does the pt drink ETOH?: Yes Does the pt have substance abuse?: No - Immunizations Immunizations are current?: Yes - POLST Patient has POLST: Yes POLST Status: DNR PD ED PE NORMAL - Vitals Vital signs reviewed: Yes (hypertensive) - General General: Alert and oriented X 3, No acute distress, Well developed/nourished, Other (The patient exhibits 1 to 2 seconds of speech latency and 2 to 3 seconds of delay in execution of motor commands.) - HEENT HEENT: Atraumatic, PERRL, EOMI - Neck Neck: Supple, no meningeal sign, No bony TTP - Cardiac Cardiac: Other (irregularly irregular 1/6 holosytolic murmer at LSB) - Respiratory Respiratory: No respiratory distress, Other (Diminished breath sounds bilaterally at the bases) - Abdomen Abdomen: Soft, Non tender - Back Back: No CVA TTP, No spinal TTP - Derm Derm: Normal color, Warm and dry - Extremities Extremities: Other (There is no significant edema to the lower extremities there is erythema to the right lower extremity there is an old site of surgery that is well-healed now there is a bandage placed over the L anterior calf which the patient states is being treated at the wound clinic.Denies symptoms associated ) - Neuro Neuro: Alert and oriented X 3, 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, No motor deficit, No sensory deficit, Normal speech (speech improves to normal with normal animation after one liter saline .) Eye Opening: Spontaneous Motor: Obeys Commands Verbal: Oriented GCS Score: 15 Results - Vitals Vitals: Vital Signs - 24 hr 04/07/24 04/07/24 17:03 19:10 Temperature 37.1 C Heart Rate 80 87 Respiratory 16 18 Rate Blood Pressure 123/91 H 144/108 H O2 Saturation 94 98 Oxygen O2 Source Room air - Labs Labs: Laboratory Tests 04/07/24 04/07/24 04/07/24 17:19 17:19 17:19 WBC 5.2 RBC 4.94 Hgb 11.9 L Hct 38.7 MCV 78.3 L MCH 24.1 L MCHC 30.7 L RDW 17.2 H Plt Count 239 MPV 10.1 Neut # (Auto) 3.5 Lymph # (Auto) 1.2 L [place] # (Auto) 0.3 Eos # (Auto) 0.1 Baso # (Auto) 0.1 Absolute Nucleated RBC 0.00 Nucleated RBC % 0.0 Sodium 134 L Potassium 3.8 Chloride 100 L Carbon Dioxide 25 Anion Gap 9.0 BUN 19 Creatinine 1.2 Estimated GFR (MDRD) 43 L Glucose 78 Lactic Acid Calcium 9.8 Total Bilirubin 0.3 AST 37 ALT 12 Alkaline Phosphatase 40 L B-Natriuretic Peptide 229 H Total Protein 6.7 Albumin 3.8 Globulin 2.9 Albumin/Globulin Ratio 1.3 Lipase 95 H Urine Color Urine Clarity Urine pH Ur Specific Call Urine Protein Urine Glucose (UA) Urine Ketones Urine Occult Blood Urine Nitrite Urine Bilirubin Urine Urobilinogen Ur Leukocyte Esterase Ur Microscopic Review Urine Culture Comments Nasal Adenovirus (PCR) Nasal B. parapertussis DNA (PCR) Nasal Coronavir 229E PCR Nasal Coronavir HKU1 PCR Nasal Coronavir NL63 PCR Nasal Coronavir OC43 PCR Nasal Enterovir/Rhinovir PCR Nasal Influenza B PCR Nasal Influenza A PCR Nasal Parainfluen 1 PCR Nasal Parainfluen 2 PCR Nasal Parainfluen 3 PCR Nasal Parainfluen 4 PCR Nasal RSV (PCR) Nasal B.pertussis DNA PCR Nasal C.pneumoniae (PCR) Tom Human Metapneumo PCR Nasal M.pneumoniae (PCR) Nasal SARS-CoV-2 (PCR) 04/07/24 04/07/24 04/07/24 17:25 17:43 18:55 WBC RBC Hgb Hct MCV MCH MCHC RDW Plt Count MPV Neut # (Auto) Lymph # (Auto) [place] # (Auto) Eos # (Auto) Baso # (Auto) Absolute Nucleated RBC Nucleated RBC % Sodium Potassium Chloride Carbon Dioxide Anion Gap BUN Creatinine Estimated GFR (MDRD) Glucose Lactic Acid 1.1 Calcium Total Bilirubin AST ALT Alkaline Phosphatase B-Natriuretic Peptide Total Protein Albumin Globulin Albumin/Globulin Ratio Lipase Urine Color YELLOW Urine Clarity CLEAR Urine pH 6.0 Ur Specific Call >=1.030 H Urine Protein NEGATIVE Urine Glucose (UA) NEGATIVE Urine Ketones NEGATIVE Urine Occult Blood NEGATIVE Urine Nitrite NEGATIVE Urine Bilirubin NEGATIVE Urine Urobilinogen 0.2 (NORMAL) Ur Leukocyte Esterase NEGATIVE Ur Microscopic Review NOT INDICATED Urine Culture Comments NOT INDICATED Nasal Adenovirus (PCR) NOT DETECTED Nasal B. parapertussis DNA (PCR) NOT DETECTED Nasal Coronavir 229E PCR NOT DETECTED Nasal Coronavir HKU1 PCR NOT DETECTED Nasal Coronavir NL63 PCR NOT DETECTED Nasal Coronavir OC43 PCR NOT DETECTED Nasal Enterovir/Rhinovir PCR NOT DETECTED Nasal Influenza B PCR NOT DETECTED Nasal Influenza A PCR NOT DETECTED Nasal Parainfluen 1 PCR NOT DETECTED Nasal Parainfluen 2 PCR NOT DETECTED Nasal Parainfluen 3 PCR NOT DETECTED Nasal Parainfluen 4 PCR NOT DETECTED Nasal RSV (PCR) NOT DETECTED Nasal B.pertussis DNA PCR NOT DETECTED Nasal C.pneumoniae (PCR) NOT DETECTED Tom Human Metapneumo PCR NOT DETECTED Nasal M.pneumoniae (PCR) NOT DETECTED Nasal SARS-CoV-2 (PCR) NOT DETECTED - Rads (name of study) chset Relevant Findings:: Prelim report reviewed (Impression: Cardiomegaly, prominent interstitial markings and small bilateral pleural effusions, increased from prior. Findings are concerning for pulmonary edema.), EMP independent interpretation of test, See rad report Procedures - IVC sono (time) 1710 Bedside IVC sono: IVC measures (cm) (1.39), IVC collapsed c insp (cm) (complete), Dehydration (est <1 liter deficit) PD Medical Decision Making - ED course Complexity details: reviewed old records, reviewed results, re-evaluated patient, considered differential, d/w patient Reviewed Lab Results: We reviewed a complete blood cell count showing a normal white blood cell count hemoglobin that is low at 11.9 and this is up from the patient's most recent is from the entire year. Her hematocrit is normal at 38.7 also up for him her normals for this year chemistries have a serum sodium of 134 chloride 100 the BUN and creatinine are normal at 19 and 1.2 and these values are similar to her prior lactate is 1.1 BNP is elevated at 229 and improvement from all of her other values. Liver functions are normal urinalysis is remarkable for specific gravity greater than 1.030 and the nasal swab is negative. I interpret these labs to indicate the patient does have some hemoconcentration with higher values of hemoglobin and hematocrit than normal chemistries show normal renal function and the patient appears improved overall from her prior laboratory values that she had to be admitted for. Her BNP elevated at 229 is a low for her. The urinalysis shows a specific gravity of 1.3030 and this is all consistent with the level of dehydration that this patient is demonstrating by interrogation of the inferior vena cava with POCUS. ED course: Estefanía Villanueva presented to the emergency department with the chief complaint of weakness. She denied being more short of breath than usual she denied any swel ling to her extremities. She has a history of congestive heart failure. I did not find evidence of a diuretic in her medication regimen. We did however discover she is mildly volume depleted with interrogation of the IVC with POCUS. Despite her history of congestive heart failure we administered a liter of saline and the patient's symptoms resolved. She was able to sit up at the side of the bed to stand at the side of the bed her level of attention was improved with increased animation and a decrease in speech latency and delay in execution of motor commands. She requested to go home. Departure - Departure Disposition: 01 Home, Self Care Clinical Impression: Weakness, Dehydration Condition: Stable Instructions: ED Dehydration Follow-Up: Andre Spring MD [Physician No Access] - Comments: Estefanía today it looks like your weakness was related to some mild dehydration. The only thing we did today was to give you some saline by vein. Your laboratory evaluation did confirm your dehydration and your improvement with therapy indicates we are on the right track. Management of fluid is difficult with a history of congestive heart failure. With too little fluid the heart will not work quite properly and with too much fluid it will fail and fill your lungs with fluid. A follow-up with your primary care doctor is indicated for reevaluation within the week. Forms: PCP List
[2024-04-07] MEDS: SODIUM CHLORIDE 0.9% 1,000 ML IV STA (17:33)
[2024-04-07 17:35] LABS: BASOPHILS # (AUTO) 0.1 10^3/uL (0.0-0.1); BASOPHILS % (AUTO) 1.1 %; EOSINOPHILS # (AUTO) 0.1 10^3/uL (0.0-0.7); EOSINOPHILS % (AUTO) 2.5 %; HCT - HEMATOCRIT 38.7 % (37.0-47.0); HGB - HEMOGLOBIN 11.9 g/dL (12.0-16.0); LYMPHOCYTES # (AUTO) 1.2 10^3/uL (1.5-3.5); LYMPHOCYTES % (AUTO) 22.1 %; MEAN CORPUSCULAR HEMOGLOBIN 24.1 pg (27.0-31.0); MEAN CORPUSCULAR HGB CONC 30.7 g/dL (32.0-36.0); MEAN CORPUSCULAR VOLUME 78.3 fL (81.0-99.0); MEAN PLATELET VOLUME 10.1 fL (7.9-10.8); MONOCYTES # (AUTO) 0.3 10^3/uL (0.0-1.0); MONOCYTES % (AUTO) 6.5 %; NEUTROPHILS # (AUTO) 3.5 10^3/uL (1.5-6.6); NEUTROPHILS % (AUTO) 67.6 %; PLT - PLATELET COUNT 239 10^3/uL (130-450); RED BLOOD COUNT 4.94 10^6/uL (4.20-5.40); RED CELL DISTRIBUTION WIDTH 17.2 % (12.0-15.0); WHITE BLOOD COUNT 5.2 x10^3/uL (4.8-10.8)
--- NOTE | 2024-04-07 17:40 | XRAY Report ---
PROCEDURE: Chest 1V INDICATIONS: chest pain TECHNIQUE: One view of the chest was acquired. COMPARISON: 03/12/2024. FINDINGS: Surgical changes and devices: None. Lungs and pleura: Small bilateral pleural effusions appear increased from prior. Prominent interstit ial markings in the bilateral mid and lower lung gan. Mediastinum: Mediastinal contours appear normal. Heart size is enlarged. Bones and chest wall: No suspicious bony lesions. Overlying soft tissues appear unremarkable. IMPRESSION: Cardiomegaly, prominent interstitial markings and small bilateral pleural effusions, increased from p rior. Findings are concerning for pulmonary edema. Reviewed by: Nickolas Lester MD on 04/07/2024 4:39 PM KRISTI Approved by: Nickolas Lester MD on 04/07/2024 4:39 PM KRISTI Station ID: [id number]
[2024-04-07 17:45] LABS: ALBUMIN 3.8 g/dL (3.2-5.5); ALBUMIN/GLOBULIN RATIO 1.3 (1.0-2.2); BILIRUBIN,TOTAL 0.3 mg/dL (0.2-1.0); CALCIUM 9.8 mg/dL (8.5-10.3); CREATININE 1.2 mg/dL (0.6-1.3); POTASSIUM 3.8 mmol/L (3.5-4.5); TOTAL PROTEIN 6.7 g/dL (6.4-8.9)
[2024-04-07 18:43] LABS: B. PARAPERTUSSIS- RESP PCR PAN NOT DETECTED; B. PERTUSSIS- RESP PCR PANEL NOT DETECTED; C. PNEUMONIAE- RESP PCR PANEL NOT DETECTED; CORONAVIRUS 229E-RESP PCR NOT DETECTED; CORONAVIRUS HKU1-RESP PCR NOT DETECTED; CORONAVIRUS NL63-RESP PCR NOT DETECTED; CORONAVIRUS OC43-RESP PCR NOT DETECTED; HUMAN METAPNEUMOVIRUS NOT DETECTED; INFLUENZA A- RESP PCR PANEL NOT DETECTED; INFLUENZA B - RESP PCR PANEL NOT DETECTED; M. PNEUMONIAE- RESP PCR PANEL NOT DETECTED; PARAINFLUENZA VIRUS 1 NOT DETECTED; PARAINFLUENZA VIRUS 2 NOT DETECTED; PARAINFLUENZA VIRUS 3 NOT DETECTED; PARAINFLUENZA VIRUS 4 NOT DETECTED; RHINOVIRUS/ENTEROVIRUS NOT DETECTED; RSV- RESP PCR PANEL NOT DETECTED; SARS-CoV-2 -RESP PCR PANEL NOT DETECTED
[2024-04-07 19:06] LABS: BILIRUBIN,URINE NEGATIVE (NEGATIVE); GLUCOSE, URINE (UA) NEGATIVE (NEGATIVE); KETONES,URINE (UA) NEGATIVE (NEGATIVE); LEUKOCYTE ESTERASE, URINE NEGATIVE (NEGATIVE); NITRITE,URINE NEGATIVE (NEGATIVE); OCCULT BLOOD,URINE NEGATIVE (NEGATIVE); PROTEIN,URINE NEGATIVE (NEGATIVE); UROBILINOGEN,URINE 0.2 (NORMAL) E.U./dL (NORMAL)
[2024-04-07 19:08] LABS: CLARITY,URINE CLEAR (CLEAR)
[2024-04-07 19:38] VITALS: BP 144/108; O2SAT 98
== END 2024-04-07 19:51 | disposition home or self-care (01) ==
LOC: EDUNIT# → ED 16:39
DX: E86.0 Dehydration (principal); I50.9 Heart failure, unspecified
CPT/HCPCS: 36415; 51701; 80053; 81001; 81003; 83605; 83690; 83880; 85025; 87040; 87086; 87633; 99284

== ENCOUNTER 2024-04-13 00:38 | Outpatient (CLI) | payer MEDICARE | END 2024-04-13 23:59 | disposition critical access hospital (66) | LOC: EMS 00:38 | DX: R06.01 Orthopnea (principal); R05.9 Cough, unspecified; R09.89 Other specified symptoms and signs involving the circulatory and respiratory systems | CPT/HCPCS: A0425; A0427 ==

== ENCOUNTER 2024-04-13 00:42 | Observation (INO) | payer MEDICARE ==
--- NOTE | 2024-04-13 01:24 | ED Physician Documentation ---
PD HPI DYSPNEA - Stated complaint Stated Complaint: SOA, PNA - Chief complaint Chief Complaint: Resp - History obtained from History obtained from: Patient, EMS - Additional information Additional information: 84-year-old female with history of atrial fibrillation on Eliquis, reported history of congestive heart failure (EF 60% in 12/2023 with indeterminant diastolic fxn) presents by EMS from home for shortness of breath especially when lying flat. Patient told EMS that she was seen in our emergency department approximately 5 days ago and diagnosed with pneumonia, however they did not see antibiotics at her house. EMS reported room oxygen saturations in the low 90s. They placed her on nonrebreather and administered a DuoNeb treatment en route. Review of Systems Constitutional: denies: Fever, Chills Cardiac: denies: Chest pain / pressure, Palpitations, Calf pain Respiratory: reports: Dyspnea, Cough, Wheezing GI: denies: Abdominal Pain, Nausea, Vomiting, Constipation, Diarrhea : denies: Dysuria, Frequency, Hesitancy Musculoskeletal: denies: Neck pain, Back pain, Extremity pain Neurologic: denies: Generalized weakness, Focal weakness, Numbness PD PAST MEDICAL HISTORY - Past Medical History Cardiovascular: Hypertension, High cholesterol, Peripheral Vascular Disease, Atrial fibrillation Respiratory: None Neuro: None Endocrine/Autoimmune: None GI: None EDITING INTERNSHIP: None : None HEENT: None Psych: Anxiety Musculoskeletal: Other Derm: Other - Past Surgical History Past Surgical History: Yes General: Appendectomy Ortho: Amputation Cardiovascular: Vascular surgery HEENT: Tonsil/Adenoidectomy - Present Medications Home Medications: Ambulatory Orders Medication Instructions Recorded Confirmed Zolpidem Tartrate 10 mg PO QPM PRN 03/19/17 03/22/24 Apixaban [Eliquis] 5 mg ORAL BID #60 tab 12/13/23 03/23/24 Aspirin [Aspirin Regimen] 81 mg PO DAILY #30 tab 12/13/23 03/23/24 Cholecalciferol [Vitamin D3] 25 mcg PO DAILY #0 12/13/23 03/23/24 Cyanocobalamin (Vitamin B-12) 500 mcg PO DAILY #30 tab 12/13/23 03/23/24 [Vitamin B-12] Olmesartan Medoxomil [Benicar] 20 mg PO DAILY #30 tab 12/13/23 03/23/24 Vit No.170/Iron/Folic 1 each PO DAILY #30 tablet 12/13/23 03/23/24 [Dermacinrx Prenatrix Caplet] Rosuvastatin Calcium [Crestor] 5 mg PO DAILY #30 tab 12/13/23 03/22/24 cloNIDine [Catapres] 0.1 mg PO DAILY #30 tab 12/13/23 03/22/24 Mupirocin 2% Oint [Bactroban 2% 1 applic TOP BID #22 gm 01/28/24 03/23/24 Oint] - Allergies Allergies/Adverse Reactions: Allergies Allergy/AdvReac Type Severity Reaction Status Date / Time strawberry Allergy Unknown Verified 04/07/24 17:11 venom-honey bee Allergy swelling Verified 04/07/24 17:11 [bee venom (honey bee)] - Social History Does the pt smoke?: No Smoking Status: Never smoker Does the pt drink ETOH?: Yes Does the pt have substance abuse?: No - Immunizations Immunizations are current?: Yes - POLST Patient has POLST: Yes POLST Status: DNR PD ED PE NORMAL - Vitals Vital signs reviewed: Yes - General General: Alert and oriented X 3, No acute distress, Other (ill appearing, nontoxic) - Cardiac Cardiac: Other (irregularly irregular rhythm) - Respiratory Respiratory: Other (Expiratory wheezing upper lung gan, rales bilateral bases) - Abdomen Abdomen: Soft, Non tender, Non distended - Derm Derm: Normal color, Warm and dry - Extremities Extremities: No deformity, No tenderness to palpate, Other (Trace pitting edema bilateral lower extremities) - Neuro Neuro: Alert and oriented X 3, 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, No motor deficit, Normal speech Results - Vitals Vitals: Vital Signs - 24 hr 04/13/24 04/13/24 04/13/24 00:46 01:30 02:00 Temperature 35.7 C L Heart Rate 87 83 94 Respiratory 20 19 19 Rate Blood Pressure 154/102 H 154/96 H 158/95 H O2 Saturation 96 91 L 94 If not protocol : Oxygen Flow, liters/minute 04/13/24 04/13/24 03:00 03:30 Temperature Heart Rate 82 83 Respiratory 15 16 Rate Blood Pressure 151/101 H 127/95 H O2 Saturation 94 91 L If not protocol 2 2 : Oxygen Flow, liters/minute Oxygen O2 Source Nasal cannula Oxygen Flow Rate 2 - Labs Labs: Laboratory Tests 04/13/24 04/13/24 04/13/24 01:15 01:30 01:30 WBC 5.4 RBC 4.83 Hgb 11.7 L Hct 37.9 MCV 78.5 L MCH 24.2 L MCHC 30.9 L RDW 17.3 H Plt Count 226 MPV 10.0 Neut # (Auto) 3.8 Lymph # (Auto) 1.1 L [place] # (Auto) 0.2 Eos # (Auto) 0.2 Baso # (Auto) 0.0 Absolute Nucleated RBC 0.00 Nucleated RBC % 0.0 PT 20.5 H INR 1.9 H Bld Gas Analysis Time Sample Site ABG pH ABG pCO2 ABG pO2 ABG HCO3 ABG Total CO2 ABG O2 Saturation ABG Base Excess Joe Test O2 Delivery Device O2 Liters/Min FiO2 Sodium Potassium Chloride Carbon Dioxide Anion Gap BUN Creatinine Estimated GFR (MDRD) Glucose Lactic Acid Calcium Total Bilirubin AST ALT Alkaline Phosphatase Troponin I High Sens B-Natriuretic Peptide Total Protein Albumin Globulin Albumin/Globulin Ratio Nasal Adenovirus (PCR) NOT DETECTED Nasal B. parapertussis DNA (PCR) NOT DETECTED Nasal Coronavir 229E PCR NOT DETECTED Nasal Coronavir HKU1 PCR NOT DETECTED Nasal Coronavir NL63 PCR NOT DETECTED Nasal Coronavir OC43 PCR NOT DETECTED Nasal Enterovir/Rhinovir PCR NOT DETECTED Nasal Influenza B PCR NOT DETECTED Nasal Influenza A PCR NOT DETECTED Nasal Parainfluen 1 PCR NOT DETECTED Nasal Parainfluen 2 PCR NOT DETECTED Nasal Parainfluen 3 PCR NOT DETECTED Nasal Parainfluen 4 PCR NOT DETECTED Nasal RSV (PCR) NOT DETECTED Nasal B.pertussis DNA PCR NOT DETECTED Nasal C.pneumoniae (PCR) NOT DETECTED Tom Human Metapneumo PCR NOT DETECTED Nasal M.pneumoniae (PCR) NOT DETECTED Nasal SARS-CoV-2 (PCR) NOT DETECTED 04/13/24 04/13/24 04/13/24 01:30 01:30 01:30 WBC RBC Hgb Hct MCV MCH MCHC RDW Plt Count MPV Neut # (Auto) Lymph # (Auto) [place] # (Auto) Eos # (Auto) Baso # (Auto) Absolute Nucleated RBC Nucleated RBC % PT INR Bld Gas Analysis Time Sample Site ABG pH ABG pCO2 ABG pO2 ABG HCO3 ABG Total CO2 ABG O2 Saturation ABG Base Excess Joe Test O2 Delivery Device O2 Liters/Min FiO2 Sodium 125 L Potassium 3.5 Chloride 91 L Carbon Dioxide 22 Anion Gap 12.0 BUN 17 Creatinine 1.1 Estimated GFR (MDRD) 47 L Glucose 79 Lactic Acid 2.3 H Calcium 9.4 Total Bilirubin 0.3 AST 57 H ALT 18 Alkaline Phosphatase 43 Troponin I High Sens 8.9 B-Natriuretic Peptide Total Protein 7.2 Albumin 3.9 Globulin 3.3 Albumin/Globulin Ratio 1.2 Nasal Adenovirus (PCR) Nasal B. parapertussis DNA (PCR) Nasal Coronavir 229E PCR Nasal Coronavir HKU1 PCR Nasal Coronavir NL63 PCR Nasal Coronavir OC43 PCR Nasal Enterovir/Rhinovir PCR Nasal Influenza B PCR Nasal Influenza A PCR Nasal Parainfluen 1 PCR Nasal Parainfluen 2 PCR Nasal Parainfluen 3 PCR Nasal Parainfluen 4 PCR Nasal RSV (PCR) Nasal B.pertussis DNA PCR Nasal C.pneumoniae (PCR) Tom Human Metapneumo PCR Nasal M.pneumoniae (PCR) Nasal SARS-CoV-2 (PCR) 04/13/24 04/13/24 01:30 02:07 WBC RBC Hgb Hct MCV MCH MCHC RDW Plt Count MPV Neut # (Auto) Lymph # (Auto) [place] # (Auto) Eos # (Auto) Baso # (Auto) Absolute Nucleated RBC Nucleated RBC % PT INR Bld Gas Analysis Time 0211 Sample Site RIGHT RADIAL ABG pH 7.39 ABG pCO2 35 ABG pO2 57 L ABG HCO3 20.5 L ABG Total CO2 21.5 ABG O2 Saturation 89 L ABG Base Excess -3.9 L Joe Test POSITIVE O2 Delivery Device NASAL CANNULA O2 Liters/Min 2.00 FiO2 28.00 Sodium Potassium Chloride Carbon Dioxide Anion Gap BUN Creatinine Estimated GFR (MDRD) Glucose Lactic Acid Calcium Total Bilirubin AST ALT Alkaline Phosphatase Troponin I High Sens B-Natriuretic Peptide 169 H Total Protein Albumin Globulin Albumin/Globulin Ratio Nasal Adenovirus (PCR) Nasal B. parapertussis DNA (PCR) Nasal Coronavir 229E PCR Nasal Coronavir HKU1 PCR Nasal Coronavir NL63 PCR Nasal Coronavir OC43 PCR Nasal Enterovir/Rhinovir PCR Nasal Influenza B PCR Nasal Influenza A PCR Nasal Parainfluen 1 PCR Nasal Parainfluen 2 PCR Nasal Parainfluen 3 PCR Nasal Parainfluen 4 PCR Nasal RSV (PCR) Nasal B.pertussis DNA PCR Nasal C.pneumoniae (PCR) Tom Human Metapneumo PCR Nasal M.pneumoniae (PCR) Nasal SARS-CoV-2 (PCR) PD Medical Decision Making - ED course Complexity details: reviewed old records, reviewed results, re-evaluated patient, considered differential, d/w patient ED course: Shortness of breath with laying flat and cough. Record review shows that on 04/07/2024 patient was seen in the emergency department for generalized weakness. Chest x-ray at that time showed bilateral pleural effusions and pulmonary edema, but ED note reports possible hemoconcentration and a liter of IV fluids was given to the patient. Suspect volume overload contributing to patient's symptoms. Room oxygen saturation 88% with good waveform in bed. ABG ordered and patient subsequently placed on supplemental nasal cannula. Laboratory work is reviewed. INR 1.9. Chest x-ray shows interval mild worsening of pleural effusions and pulmonary edema. Patient given 60 mg empiric IV Lasix. ABG reviewed, patient is hypoxic on room air. Plan to admit for diuresis and further treatment. Departure - Departure Disposition: 66 [facility] DC/Xfer Clinical Impression: CHF (congestive heart failure), Acute hypoxemic respiratory failure Condition: Serious
[2024-04-13 01:40] LABS: BASOPHILS % (AUTO) 0.7 %; EOSINOPHILS # (AUTO) 0.2 10^3/uL (0.0-0.7); EOSINOPHILS % (AUTO) 3.4 %; HCT - HEMATOCRIT 37.9 % (37.0-47.0); HGB - HEMOGLOBIN 11.7 g/dL (12.0-16.0); LYMPHOCYTES # (AUTO) 1.1 10^3/uL (1.5-3.5); LYMPHOCYTES % (AUTO) 21.2 %; MEAN CORPUSCULAR HEMOGLOBIN 24.2 pg (27.0-31.0); MEAN CORPUSCULAR HGB CONC 30.9 g/dL (32.0-36.0); MEAN CORPUSCULAR VOLUME 78.5 fL (81.0-99.0); MONOCYTES # (AUTO) 0.2 10^3/uL (0.0-1.0); MONOCYTES % (AUTO) 4.5 %; NEUTROPHILS # (AUTO) 3.8 10^3/uL (1.5-6.6); PLT - PLATELET COUNT 226 10^3/uL (130-450); RED BLOOD COUNT 4.83 10^6/uL (4.20-5.40); RED CELL DISTRIBUTION WIDTH 17.3 % (12.0-15.0); WHITE BLOOD COUNT 5.4 x10^3/uL (4.8-10.8)
[2024-04-13 01:50] LABS: ALBUMIN 3.9 g/dL (3.2-5.5); ALBUMIN/GLOBULIN RATIO 1.2 (1.0-2.2); BILIRUBIN,TOTAL 0.3 mg/dL (0.2-1.0); CALCIUM 9.4 mg/dL (8.5-10.3); CREATININE 1.1 mg/dL (0.6-1.3); POTASSIUM 3.5 mmol/L (3.5-4.5); TOTAL PROTEIN 7.2 g/dL (6.4-8.9)
[2024-04-13] MEDS: FUROSEMIDE 40 MG/4 ML VIAL IVP STA (01:53)
[2024-04-13 02:01] LABS: INR 1.9 (0.8-1.2); PT - PROTHROMBIN TIME 20.5 secs (9.9-12.6)
[2024-04-13 02:12] LABS: ABG PCO2 35 mmHg (34-45); ABG PH 7.39 (7.35-7.45); ABG PO2 57 mmHg (80-100)
[2024-04-13 02:13] LABS: ABG BASE EXCESS -3.9 mmol/L (-2.0-3.0); ABG HCO3 20.5 mmol/L (22.0-26.0); ABG OXYGEN SATURATION 89 % (94-98); ABG TCO2 21.5 MMOL/L (21.0-29.0); ALLEN TEST POSITIVE
--- NOTE | 2024-04-13 02:14 | XRAY Report ---
PROCEDURE: Chest 1V INDICATIONS: dyspnea, recent pna TECHNIQUE: One view of the chest was acquired. COMPARISON: CT chest 04/07/2024. FINDINGS: Surgical changes and devices: None. Lungs and pleura: No pneumothorax. Mildly increased right pleural effusion, stable left pleural effu maximo. Compressive atelectasis. Mediastinum: Mediastinal contours appear normal. Heart border is obscured. Bones and chest wall: No suspicious bony lesions. Overlying soft tissues appear unremarkable. IMPRESSION: Compared to prior radiograph in 04/07/2024, mild increased size of right pleural effusion, stable left pleural effusion. Subadjacent atelectasis. Reviewed by: Aurora Aguirre MD, PhD on 04/13/2024 2:12 AM PDT Approved by: Aurora Aguirre MD, PhD on 04/13/2024 2:12 AM PDT Station ID: [id number]
[2024-04-13 02:43] LABS: CORONAVIRUS 229E-RESP PCR NOT DETECTED; CORONAVIRUS HKU1-RESP PCR NOT DETECTED; CORONAVIRUS NL63-RESP PCR NOT DETECTED; CORONAVIRUS OC43-RESP PCR NOT DETECTED
[2024-04-13 02:44] LABS: B. PARAPERTUSSIS- RESP PCR PAN NOT DETECTED; B. PERTUSSIS- RESP PCR PANEL NOT DETECTED; C. PNEUMONIAE- RESP PCR PANEL NOT DETECTED; HUMAN METAPNEUMOVIRUS NOT DETECTED; INFLUENZA A- RESP PCR PANEL NOT DETECTED; INFLUENZA B - RESP PCR PANEL NOT DETECTED; M. PNEUMONIAE- RESP PCR PANEL NOT DETECTED; PARAINFLUENZA VIRUS 1 NOT DETECTED; PARAINFLUENZA VIRUS 2 NOT DETECTED; PARAINFLUENZA VIRUS 3 NOT DETECTED; PARAINFLUENZA VIRUS 4 NOT DETECTED; RHINOVIRUS/ENTEROVIRUS NOT DETECTED; RSV- RESP PCR PANEL NOT DETECTED; SARS-CoV-2 -RESP PCR PANEL NOT DETECTED
[2024-04-13] MEDS ORDERED: ACETAMINOPHEN 325 MG TABLET PO PRN (03:31)
[2024-04-13] MEDS ORDERED: SODIUM CHLORIDE FLUSH 0.9% 10 ML SYRINGE IVP PRN (03:31)
--- NOTE | 2024-04-13 03:57 | HISTORY & PHYSICAL EXAMINATION ---
Chief Complaint - Chief Complaint Chief Complaint: shortness of breath History of Present Illness - Admitted From Admitted From:: ED - History of Present Illness HPI Comment/Other: Mrs. Villanueva who presented with history of Afib, hypertension, cardiomyopathy with preserved EF,and diastolic heart failure. Patient presented with shortness of breath. She explained that symptoms have progressively worsened since she was diagnosed with pneumonia. she has been coughing alot. she explained shortness of breath is non-exertional and worse with laying flat. She denies any chest pain or heart palpitations. In the ED workup revealed, chest xray with pulmonary edema. she was hypoxic on room air. ABG was consistent with hypoxemia. she was given lasix and started on supplemental oxygen with improvement. During my evaluation, patient was resting comfortable in no acute distress. I performed this visit using tele-health tools,incluidng live video. I obtained the patient's informed consent to perform our visit using available tele-health modalities. History - Past Medical History Cardiovascular: reports: Hypertension, High cholesterol, Peripheral Vascular Disease, Atrial fibrillation Respiratory: reports: None Neuro: reports: None Endocrine/Autoimmune: reports: None GI: reports: None MANAGER FACILITY: reports: None : reports: None HEENT: reports: None Psych: reports: Anxiety Musculoskeletal: reports: Other Derm: reports: Other MRSA Hx?: No - Past Surgical History General: reports: Appendectomy Ortho: reports: Amputation Cardiovascular: reports: Vascular surgery HEENT: reports: Tonsil/Adenoidectomy - Family & Social History Family History Comment/Other: Mother of stroke. Had osteoporosis. Dad with complications of diabetes. No siblings. 3 kids healthy. 1 daughter is nearby on [place], 1 daughter on [facility]. Living Situation: Alone Social History Notes: 1 to 2 glasses of wine a week with dinner. No history of smoking. of Alzheimer's/Parkinson's 5 years ago. She moved to apartment near [facility]. Very independent but daughter goes by daily to make sure she's ok. Started falling. 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 Resulted in weakness and falls and placement to SNF for rehab November 17. - Substance History Use: Uses substance without health or social issues: Alcohol (1-2 glasses of wine a week with dinner) - POLST Patient has POLST: Yes POLST Status: DNR Meds/Allgy - Home Medications Home Medications: Ambulatory Orders Medication Instructions Recorded Confirmed Zolpidem Tartrate 10 mg PO QPM PRN 03/19/17 03/22/24 Apixaban [Eliquis] 5 mg ORAL BID #60 tab 12/13/23 03/23/24 Aspirin [Aspirin Regimen] 81 mg PO DAILY #30 tab 12/13/23 03/23/24 Cholecalciferol [Vitamin D3] 25 mcg PO DAILY #0 12/13/23 03/23/24 Cyanocobalamin (Vitamin B-12) 500 mcg PO DAILY #30 tab 12/13/23 03/23/24 [Vitamin B-12] Olmesartan Medoxomil [Benicar] 20 mg PO DAILY #30 tab 12/13/23 03/23/24 Vit No.170/Iron/Folic 1 each PO DAILY #30 tablet 12/13/23 03/23/24 [Dermacinrx Prenatrix Caplet] Rosuvastatin Calcium [Crestor] 5 mg PO DAILY #30 tab 12/13/23 03/22/24 cloNIDine [Catapres] 0.1 mg PO DAILY #30 tab 12/13/23 03/22/24 Mupirocin 2% Oint [Bactroban 2% 1 applic TOP BID #22 gm 01/28/24 03/23/24 Oint] - Allergies Allergies/Adverse Reactions: Allergies Allergy/AdvReac Type Severity Reaction Status Date / Time strawberry Allergy Unknown Verified 04/07/24 17:11 venom-honey bee Allergy swelling Verified 04/07/24 17:11 [bee venom (honey bee)] Review of Systems - Constitutional Constitutional: reports: Malaise, Weakness - Cardiovascular Cariovascular: reports: Orthopnea. denies: Chest pain - Respiratory Respiratory: reports: Cough, Orthopnea, SOB at rest - All Other Systems All Other Systems: reports: Reviewed and negative Exam - Vital Signs Reviewed Vital Signs: Yes Vital Signs: Vital Signs x48h Temp Pulse Resp BP Pulse Ox 04/13/24 00:46 35.7 C L 87 20 154/102 H 96 - Physical Exam General Appearance: positive: No acute distress, Alert Eyes Bilateral: positive: Normal inspection, PERRL Respiratory: positive: Chest non-tender, No respiratory distress, Breath sounds nml Cardiovascular: positive: Irregularly irregular Skin: positive: Color nml, No rash, Warm, Dry Extremities: positive: Non-tender, Full ROM, Nml appearance Conclusion/Plan - Problem List (1) Acute congestive heart failure Conclusion/Plan: etiology of decompensation uncertain, likely precipitated by acute respiratory infection -s/p lasix in the Ed, will monitor UOP and fluid balance, repeat lasix dose as needed -fluid and sodium restriction -follow up with limited ECHO to re-evaluation ventricular function -trend chest xray and ABG as needed for clinical monitoring until resolution. -closely monitor vitals with continuous telemetry Qualifiers: Heart failure type: diastolic Qualified Code(s): I50.31 - Acute diastolic (congestive) heart failure (2) Acute respiratory failure with hypoxia Conclusion/Plan: -secondary to pulmonary edema -follow ABG, telemetry and pulse oximetry -titrate supplemental oxygen as needed -follow up with repeat chest xray as needed (3) Afib Conclusion/Plan: -rate controlled -review home regimen and resume eliquis as tolerated -monitor electrolytes and replaces as needed -continuous telemetry, EKG as needed. Qualifiers: Atrial fibrillation type: longstanding persistent Qualified Code(s): I48.11 - Longstanding persistent atrial fibrillation - Lab Results Fish Bones: 04/13/24 01:30 04/13/24 01:30 Core Measures - Anticipated LOS I expect patient to be DC'd or transferred within 96 hours.: Yes Telemedicine Consult Details - Provider Location & Consult Time Telemedicine consultation conducted via videoconferencing?: Yes
[2024-04-13] MEDS: SODIUM CHLORIDE FLUSH 0.9% 10 ML SYRINGE IVP SCH (08:25)
--- NOTE | 2024-04-13 11:27 | PHARMACY PROGRESS NOTE ---
- Best Possible Medication History Admit Date and Time: 04/13/24 0331 Processed by: Pharmacy Medications reviewed in ED?: No Medication History completed: Yes Patient Interview: Completed Secondary Source(s): Other family member, Insurance records As the person ultimately responsible for medication therapy, providers are able to order a medication from an existing home medication list in [facility] via the "Reconcile Routine" prior to Confirmation of that medication by clinical support associate. Such practice is discouraged except when the physician, in their clinical judgment, deems that a medical need exists for a medication without regard to previous use.
[2024-04-13] MEDS: CHOLECALCIFEROL 25 MCG TABLET PO SCH (12:30)
[2024-04-13] MEDS: PRENATAL VITAMIN TABLET PO SCH (12:30)
[2024-04-13] MEDS: BENZONATATE 100 MG CAPSULE PO PRN (12:33)
--- NOTE | 2024-04-13 13:03 | PROVIDER PROGRESS NOTE ---
Assessment/Plan - Problem List (1) Acute hypoxemic respiratory failure Assessment/Plan: (1) Acute respiratory failure with hypoxia Assessment/Plan: --Secondary to a CHF exacerbation. Started on IV lasix. --On 2L via NC. (3) Severe hypertension Assessment/Plan: --Continue home antihypertensives. Her blood pressures have stabilized since yesterday. (4) Afib Qualifiers: Atrial fibrillation type: longstanding persistent Qualified Code(s): I48.11 - Longstanding persistent atrial fibrillation Assessment/Plan: --Continue but continue Eliquis. Does not appear to be on any rate or rhythm control agent. Previously she was on metoprolol. (5) Cognitive decline Assessment/Plan: --PT/OT - Current Meds Current Meds: Current Medications Generic Name Dose Route Start Last Admin Trade Name Ashish PRN Reason Stop Dose Admin Benzonatate 100 mg 04/13/24 03:45 04/13/24 12:33 Benzonatate 100 Mg Capsule PO 100 mg TID PRN Administration Cough Cholecalciferol 50 mcg 04/13/24 12:00 04/13/24 12:30 Cholecalciferol 25 Mcg Tablet PO 50 mcg DAILY LENKA Administration Multivit/Folic Acid/Iron 1 tab 04/13/24 12:00 04/13/24 12:30 Vitamin Tablet PO 1 tab DAILYWM LENKA Administration Sodium Chloride 10 ml 04/13/24 09:00 04/13/24 08:25 Sodium Chloride Flush 0.9% 10 Ml Syringe IVP 10 ml 0100,0900,1700 LENKA Administration - Lab Result Fish Bone Diagrams: 04/13/24 01:30 04/13/24 01:30 - Additional Planning My Orders: My Active Orders 04/13/24 Evaluate and Treat OT [OT] Routine Evaluate and Treat PT [PT] Routine 04/13/24 08:08 FOLATE [CHEM] Routine VITAMIN B12 [CHEM] Routine 04/13/24 Lunch Regular Diet [DIET] 04/13/24 12:00 Cholecalciferol [Vitamin D3] 50 mcg PO DAILY Vitamin [Trinatal Rx 1] 1 tab PO DAILYWM 04/13/24 12:48 Zolpidem [Ambien] 10 mg PO QPM PRN 04/13/24 13:00 FUROSEMIDE INJ 40mg VIAL [LASIX INJ 40 mg VIAL] 40 mg IVP ONCE ONE 04/13/24 21:00 Apixaban [Eliquis] 5 mg PO BID 04/14/24 05:00 BMP - BASIC METABOLIC PANEL [CHEM] DAILYLAB BMP - BASIC METABOLIC PANEL [CHEM] Urgent CBC [CBC - COMP BLD CT W/AUTO DIFF] [HEME] DAILYLAB CBC [CBC - COMP BLD CT W/AUTO DIFF] [HEME] Urgent 04/14/24 08:00 Vitamin [Trinatal Rx 1] 1 tab PO DAILYWM 04/14/24 09:00 cloNIDine [Catapres] 0.1 mg PO DAILY 04/15/24 05:00 BMP - BASIC METABOLIC PANEL [CHEM] DAILYLAB CBC [CBC - COMP BLD CT W/AUTO DIFF] [HEME] DAILYLAB 04/16/24 05:00 BMP - BASIC METABOLIC PANEL [CHEM] DAILYLAB CBC [CBC - COMP BLD CT W/AUTO DIFF] [HEME] DAILYLAB 04/17/24 05:00 BMP - BASIC METABOLIC PANEL [CHEM] DAILYLAB CBC [CBC - COMP BLD CT W/AUTO DIFF] [HEME] DAILYLAB 04/18/24 05:00 BMP - BASIC METABOLIC PANEL [CHEM] DAILYLAB CBC [CBC - COMP BLD CT W/AUTO DIFF] [HEME] DAILYLAB Subjective - Subjective Patient Reports: Feeling Better, Resting Comfortably, No Complaints Objective Vital Signs: Vital Signs - 24 hr 04/13/24 04/13/24 04/13/24 01:30 02:00 03:00 Temperature Heart Rate 83 94 82 Heart Rate [ Brachial] Respiratory 19 19 15 Rate Blood Pressure 154/96 H 158/95 H 151/101 H Blood Pressure [Left Brachial artery] Blood Pressure [Right Brachial artery] O2 Saturation 91 L 94 94 If not protocol 2 : Oxygen Flow, liters/minute 04/13/24 04/13/24 04/13/24 03:30 03:55 04:00 Temperature 36.3 C L Heart Rate 83 83 Heart Rate [ Brachial] Respiratory 16 16 Rate Blood Pressure 127/95 H Blood Pressure [Left Brachial artery] Blood Pressure [Right Brachial artery] O2 Saturation 91 L 96 If not protocol 2 2 2 : Oxygen Flow, liters/minute 04/13/24 04/13/24 04/13/24 04:28 06:50 08:00 Temperature 36.4 C L 36.4 C L Heart Rate Heart Rate [ 73 83 70 Brachial] Respiratory 20 17 Rate Blood Pressure Blood Pressure 161/105 H [Left Brachial artery] Blood Pressure 163/105 H 140/102 H [Right Brachial artery] O2 Saturation 95 97 If not protocol 2 2 : Oxygen Flow, liters/minute Oxygen O2 Source Nasal cannula Oxygen Flow Rate 2 I&O (Last 24 Hrs): Intake and Output Totals x24h 04/11/24 04/12/24 04/13/24 23:59 23:59 23:59 Intake Total 120 Output Total 1700 Balance -1580 General: Alert, Oriented x3, Cooperative, No acute distress Neuro: Alert, CN 2-12 Grossly Intact, Oriented Times 3 Cardiovascular: Regular rate, Normal S1, Normal S2, No murmurs Respiratory: Chest non-tender, No respiratory distress, Breath sounds nml Abdomen: Normal bowel sounds, Soft, No tenderness, No hepatospenomegaly, No masses - Results Results: Laboratory Results WBC 5.4 x10^3/uL (4.8-10.8) 04/13/24 01:30 RBC 4.83 10^6/uL (4.20-5.40) 04/13/24 01:30 Hgb 11.7 g/dL (12.0-16.0) L 04/13/24 01:30 Hct 37.9 % (37.0-47.0) 04/13/24 01:30 MCV 78.5 fL (81.0-99.0) L 04/13/24 01:30 MCH 24.2 pg (27.0-31.0) L 04/13/24 01:30 MCHC 30.9 g/dL (32.0-36.0) L 04/13/24 01:30 RDW 17.3 % (12.0-15.0) H 04/13/24 01:30 Plt Count 226 10^3/uL (130-450) 04/13/24 01:30 MPV 10.0 fL (7.9-10.8) 04/13/24 01:30 Neut # (Auto) 3.8 10^3/uL (1.5-6.6) 04/13/24 01:30 Lymph # (Auto) 1.1 10^3/uL (1.5-3.5) L 04/13/24 01:30 [place] # (Auto) 0.2 10^3/uL (0.0-1.0) 04/13/24 01:30 Eos # (Auto) 0.2 10^3/uL (0.0-0.7) 04/13/24 01:30 Baso # (Auto) 0.0 10^3/uL (0.0-0.1) 04/13/24 01:30 Absolute Nucleated RBC 0.00 x10^3/uL 04/13/24 01:30 Nucleated RBC % 0.0 /100WBC 04/13/24 01:30 PT 20.5 secs (9.9-12.6) H 04/13/24 01:30 INR 1.9 (0.8-1.2) H 04/13/24 01:30 Bld Gas Analysis Time 0211 04/13/24 02:07 Sample Site RIGHT RADIAL 04/13/24 02:07 ABG pH 7.39 (7.35-7.45) 04/13/24 02:07 ABG pCO2 35 mmHg (34-45) 04/13/24 02:07 ABG pO2 57 mmHg (80-100) L 04/13/24 02:07 ABG HCO3 20.5 mmol/L (22.0-26.0) L 04/13/24 02:07 ABG Total CO2 21.5 MMOL/L (21.0-29.0) 04/13/24 02:07 ABG O2 Saturation 89 % (94-98) L 04/13/24 02:07 ABG Base Excess -3.9 mmol/L (-2.0-3.0) L 04/13/24 02:07 Joe Test POSITIVE 04/13/24 02:07 O2 Delivery Device NASAL CANNULA 04/13/24 02:07 O2 Liters/Min 2.00 LPM 04/13/24 02:07 FiO2 28.00 04/13/24 02:07 Sodium 125 mmol/L (135-145) L 04/13/24 01:30 Potassium 3.5 mmol/L (3.5-4.5) 04/13/24 01:30 Chloride 91 mmol/L (101-111) L 04/13/24 01:30 Carbon Dioxide 22 mmol/L (21-32) 04/13/24 01:30 Anion Gap 12.0 (6-13) 04/13/24 01:30 BUN 17 mg/dL (6-20) 04/13/24 01:30 Creatinine 1.1 mg/dL (0.6-1.3) 04/13/24 01:30 Estimated GFR (MDRD) 47 (>89) L 04/13/24 01:30 Glucose 79 mg/dL (74-104) 04/13/24 01:30 Lactic Acid 1.8 mmol/L (0.5-2.2) 04/13/24 08:08 Calcium 9.4 mg/dL (8.5-10.3) 04/13/24 01:30 Total Bilirubin 0.3 mg/dL (0.2-1.0) 04/13/24 01:30 AST 57 IU/L (10-42) H 04/13/24 01:30 ALT 18 IU/L (10-60) 04/13/24 01:30 Alkaline Phosphatase 43 IU/L (42-121) 04/13/24 01:30 Troponin I High Sens 8.9 ng/L (2.3-14.8) 04/13/24 01:30 B-Natriuretic Peptide 169 pg/mL (5-100) H 04/13/24 01:30 Total Protein 7.2 g/dL (6.4-8.9) 04/13/24 01:30 Albumin 3.9 g/dL (3.2-5.5) 04/13/24 01:30 Globulin 3.3 g/dL (2.1-4.2) 04/13/24 01:30 Albumin/Globulin Ratio 1.2 (1.0-2.2) 04/13/24 01:30 Procalcitonin Immunoas 0.07 ng/mL (<0.5) 04/13/24 08:08 Nasal Adenovirus (PCR) NOT DETECTED 04/13/24 01:15 Nasal B. parapertussis DNA (PCR) NOT DETECTED 04/13/24 01:15 Nasal Coronavir 229E PCR NOT DETECTED 04/13/24 01:15 Nasal Coronavir HKU1 PCR NOT DETECTED 04/13/24 01:15 Nasal Coronavir NL63 PCR NOT DETECTED 04/13/24 01:15 Nasal Coronavir OC43 PCR NOT DETECTED 04/13/24 01:15 Nasal Enterovir/Rhinovir PCR NOT DETECTED 04/13/24 01:15 Nasal Influenza B PCR NOT DETECTED 04/13/24 01:15 Nasal Influenza A PCR NOT DETECTED 04/13/24 01:15 Nasal Parainfluen 1 PCR NOT DETECTED 04/13/24 01:15 Nasal Parainfluen 2 PCR NOT DETECTED 04/13/24 01:15 Nasal Parainfluen 3 PCR NOT DETECTED 04/13/24 01:15 Nasal Parainfluen 4 PCR NOT DETECTED 04/13/24 01:15 Nasal RSV (PCR) NOT DETECTED 04/13/24 01:15 Nasal B.pertussis DNA PCR NOT DETECTED 04/13/24 01:15 Nasal C.pneumoniae (PCR) NOT DETECTED 04/13/24 01:15 Tom Human Metapneumo PCR NOT DETECTED 04/13/24 01:15 Nasal M.pneumoniae (PCR) NOT DETECTED 04/13/24 01:15 Nasal SARS-CoV-2 (PCR) NOT DETECTED 04/13/24 01:15 - Procedures Procedures: Procedures ASSISTANCE WITH RESPIRATORY VENTILATION, <24 HRS, CPAP (12/19/23) CONTROL BLEEDING IN GASTROINTESTINAL TRACT, ENDO (03/02/17) EXCISION OF ESOPHAGOGASTRIC JUNCTION, ENDO, DIAGN (03/02/17) EXCISION OF SIGMOID COLON, ENDO, DIAGN (03/02/17) EXCISION OF STOMACH, ENDO, DIAGN (03/02/17) EXCISION OF STOMACH, PYLORUS, ENDO, DIAGN (03/02/17) RESECTION OF RECTUM, OPEN APPROACH (03/08/17) RESECTION OF SIGMOID COLON, OPEN APPROACH (03/08/17) TRANSFUSE NONAUT RED BLOOD CELLS IN PERIPH VEIN, PERC (12/11/23)
[2024-04-13] MEDS: FUROSEMIDE 40 MG/4 ML VIAL IVP ONE (13:13)
[2024-04-13] MEDS: APIXABAN 5 MG TABLET PO SCH (20:52)
[2024-04-13] MEDS: ZOLPIDEM 5 MG TABLET PO PRN (22:45)
[2024-04-14 06:15] LABS: BASOPHILS # (AUTO) 0.1 10^3/uL (0.0-0.1); BASOPHILS % (AUTO) 0.9 %; EOSINOPHILS # (AUTO) 0.2 10^3/uL (0.0-0.7); EOSINOPHILS % (AUTO) 3.4 %; HCT - HEMATOCRIT 39.9 % (37.0-47.0); HGB - HEMOGLOBIN 12.3 g/dL (12.0-16.0); LYMPHOCYTES # (AUTO) 1.1 10^3/uL (1.5-3.5); LYMPHOCYTES % (AUTO) 21.4 %; MEAN CORPUSCULAR HGB CONC 30.8 g/dL (32.0-36.0); MEAN CORPUSCULAR VOLUME 77.8 fL (81.0-99.0); MEAN PLATELET VOLUME 10.3 fL (7.9-10.8); MONOCYTES # (AUTO) 0.5 10^3/uL (0.0-1.0); NEUTROPHILS # (AUTO) 3.5 10^3/uL (1.5-6.6); NEUTROPHILS % (AUTO) 65.1 %; PLT - PLATELET COUNT 231 10^3/uL (130-450); RED BLOOD COUNT 5.13 10^6/uL (4.20-5.40); RED CELL DISTRIBUTION WIDTH 17.7 % (12.0-15.0); WHITE BLOOD COUNT 5.3 x10^3/uL (4.8-10.8)
[2024-04-14 06:31] LABS: CALCIUM 9.5 mg/dL (8.5-10.3); CREATININE 1.1 mg/dL (0.6-1.3)
[2024-04-14] MEDS: PRENATAL VITAMIN TABLET PO SCH (08:16)
[2024-04-14] MEDS: cloNIDine 0.1 MG TABLET PO SCH (08:16)
[2024-04-14] MEDS: POTASSIUM CHLORIDE 20 MEQ TABLET PO ONE (08:19)
[2024-04-14 08:35] VITALS: BP 143/100; O2SAT 91
--- NOTE | 2024-04-14 10:26 | Discharge Plan ---
Discharge Plan Problem Reviewed?: Yes Disposition: Home, Self Care Condition: Fair Prescriptions: Furosemide [Lasix] 40 mg PO DAILY #7 tablet Potassium Chloride 40 meq PO DAILY #7 tab Diet: Cardiac Activity Restrictions: Activity as Tolerated Additional Instructions or Follow Up instructions: Please picker and packer your Lasix and potassium tablets. At your next PCP visit you will need a BMP. No Smoking: If you smoke, Please STOP! Call for help.
--- NOTE | 2024-04-14 10:28 | DISCHARGE SUMMARY ---
Discharge Summary Admit Date: 04/13/24 Discharge Date: 04/14/24 Discharging Provider: He Mckoy Code Status: Do Not Attempt Resuscitation Condition at Discharge: Fair Discharge Disposition: 01 Home, Self Care - HPI History of Present Illness: of breath. She explained that symptoms have progressively worsened since she was diagnosed with pneumonia. she has been coughing alot. she explained shortness of breath is non-exertional and worse with laying flat. She denies any chest pain or heart palpitations. In the ED workup revealed, chest xray with pulmonary edema. she was hypoxic on room air. ABG was consistent with hypoxemia. she was given lasix and started on supplemental oxygen with improvement. During my evaluation, patient was resting comfortable in no acute distress. I performed this visit using tele-health tools,incluidng live video. I obtained the patient's informed consent to perform our visit using available tele-health modalities. - HOSPITAL COURSE Hospital Course: Patient is an 84-year-old female who presented to the ED due to complaints of shortness of breath. Chest x-ray was performed which revealed evidence of pulmonary edema. She was started on IV Lasix and admitted. Patient was monitored and given an additional dose of IV Lasix after being admitted and had a good response. She was subsequently weaned off of supplemental oxygen and ambulated without any oxygen requirements. PT/OT had recommended a [facility] facility. Patient was adamant about discharging home and became quite tearful thought of spending another day in the hospital. She was subsequently discharged home on oral Lasix 40 mg for 7 days as well as oral potassium. - ALLERGIES Allergies/Adverse Reactions: Allergies Allergy/AdvReac Type Severity Reaction Status Date / Time strawberry Allergy Unknown Verified 04/07/24 17:11 venom-honey bee Allergy swelling Verified 04/07/24 17:11 [bee venom (honey bee)] - MEDICATIONS Home Medications: Ambulatory Orders Medication Instructions Recorded Confirmed Zolpidem Tartrate 10 mg PO QPM PRN 03/19/17 04/13/24 Apixaban [Eliquis] 5 mg ORAL BID #60 tab 12/13/23 04/13/24 Vit No.170/Iron/Folic 1 each PO DAILY #30 tablet 12/13/23 04/13/24 [Dermacinrx Prenatrix Caplet] cloNIDine [Catapres] 0.1 mg PO DAILY #30 tab 12/13/23 04/13/24 Furosemide [Lasix] 40 mg PO DAILY #7 tablet 04/14/24 Potassium Chloride 40 meq PO DAILY #7 tab 04/14/24 - PHYSICAL EXAM AT DISCHARGE General Appearance: positive: No acute distress, Alert, Mild distress Respiratory: positive: Chest non-tender, No respiratory distress, Breath sounds nml Cardiovascular: positive: Regular rate & rhythm, No murmur, No gallop Abdomen: positive: Non-tender, No organomegaly, Nml bowel sounds - LABS Result Diagrams: 04/14/24 05:11 04/14/24 05:11 - FOLLOW UP Follow Up: Follow up with PCP. - TIME SPENT Time Spent in Discharge (Minutes): 30
== END 2024-04-14 11:17 | disposition home or self-care (01) ==
LOC: EDUNIT# → ED 00:42 → MS2 03:31
PROVIDERS: ADMIT Hospitalist; ATTEND Family Medicine
DX: J96.01 Acute respiratory failure with hypoxia (principal); I11.0 Hypertensive heart disease with heart failure; I50.31 Acute diastolic (congestive) heart failure; I48.11 Longstanding persistent atrial fibrillation; Z79.01 Long term (current) use of anticoagulants; R41.89 Other symptoms and signs involving cognitive functions and awareness; Z87.01 Personal history of pneumonia (recurrent)
CPT/HCPCS: 36415; 71045; 80048; 80053; 82607; 82746; 82803; 83036; 83605; 83880; 84145; 84443; 84484; 85025; 85610; 87040; 87633; 93005; 94761; 96374; 96376; 97161; 97166; 99285; A9270; G0378

== ENCOUNTER 2024-04-13 08:11 | Outpatient (CLI) | payer MEDICARE ==
[2024-04-13 08:16] LABS: BASOPHILS # (AUTO) 0.1 10^3/uL (0.0-0.1); BASOPHILS % (AUTO) 1.2 %; EOSINOPHILS # (AUTO) 0.2 10^3/uL (0.0-0.7); EOSINOPHILS % (AUTO) 3.6 %; HCT - HEMATOCRIT 40.1 % (37.0-47.0); HGB - HEMOGLOBIN 12.7 g/dL (12.0-16.0); LYMPHOCYTES # (AUTO) 1.1 10^3/uL (1.5-3.5); LYMPHOCYTES % (AUTO) 22.4 %; MEAN CORPUSCULAR HEMOGLOBIN 24.6 pg (27.0-31.0); MEAN CORPUSCULAR HGB CONC 31.7 g/dL (32.0-36.0); MEAN CORPUSCULAR VOLUME 77.7 fL (81.0-99.0); MEAN PLATELET VOLUME 10.1 fL (7.9-10.8); MONOCYTES # (AUTO) 0.3 10^3/uL (0.0-1.0); MONOCYTES % (AUTO) 5.8 %; NEUTROPHILS # (AUTO) 3.4 10^3/uL (1.5-6.6); NEUTROPHILS % (AUTO) 66.8 %; PLT - PLATELET COUNT 230 10^3/uL (130-450); RED BLOOD COUNT 5.16 10^6/uL (4.20-5.40); RED CELL DISTRIBUTION WIDTH 17.6 % (12.0-15.0)
[2024-04-13 08:36] LABS: ALBUMIN 4.2 g/dL (3.2-5.5); ALBUMIN/GLOBULIN RATIO 1.3 (1.0-2.2); BILIRUBIN,TOTAL 0.4 mg/dL (0.2-1.0); CALCIUM 9.4 mg/dL (8.5-10.3); CREATININE 1.1 mg/dL (0.6-1.3); TOTAL PROTEIN 7.4 g/dL (6.4-8.9)
[2024-04-13 09:15] LABS: THYROID STIMULATING HORMONE 141.95 uIU/mL (0.34-5.60)
[2024-04-13 11:03] LABS: ESTIMATED AVERAGE GLUCOSE 126 mg/dL (70-100)
== END 2024-04-13 08:12 | disposition home or self-care (01) ==
LOC: LAB 08:11
PROVIDERS: ATTEND Family Medicine
DX: I10 Essential (primary) hypertension (principal); E03.9 Hypothyroidism, unspecified; Z79.899 Other long term (current) drug therapy; D50.9 Iron deficiency anemia, unspecified; I48.20 Chronic atrial fibrillation, unspecified; C44.722 Squamous cell carcinoma of skin of right lower limb, including hip
CPT/HCPCS: 36415; 80053; 83036; 84443; 85025

== ENCOUNTER 2024-04-24 23:19 | Outpatient (CLI) | payer MEDICARE | END 2024-04-24 23:59 | disposition EMS.NT | LOC: EMS 23:19 | DX: R04.0 Epistaxis (principal) ==

== ENCOUNTER 2024-04-25 05:02 | Outpatient (CLI) | payer MEDICARE | END 2024-04-25 23:59 | disposition critical access hospital (66) | LOC: EMS 05:02 | DX: R04.0 Epistaxis (principal) | CPT/HCPCS: A0425; A0429 ==

== ENCOUNTER 2024-04-25 05:11 | Emergency (ER) | payer MEDICARE ==
--- NOTE | 2024-04-25 05:13 | ED Physician Documentation ---
PD HPI HEENT - Stated complaint Stated Complaint: NOSE BLEED - History obtained from History obtained from: Patient, Family (daugher (in ED at bedside)) - History of Present Illness Timing - details: Abrupt onset - Additional information Additional information: HPI from patient as well as patient's daughter (in ED at bedside). Patient c/o sudden onset of atraumatic left-sided epistaxis approximately 11 PM last night while at home at rest. 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 Prescription medications include DOAC. Review of Systems Constitutional: denies: Fever Nose: reports: Epistaxis. 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 : None HEENT: None Psych: Anxiety Musculoskeletal: Other Derm: Other - Past Surgical History Past Surgical History: Yes General: Appendectomy Ortho: Amputation Cardiovascular: Vascular surgery HEENT: Tonsil/Adenoidectomy Derm: Skin cancer surgery - Present Medications Home Medications: Ambulatory Orders Medication Instructions Recorded Confirmed Zolpidem Tartrate 10 mg PO QPM PRN 03/19/17 04/25/24 Apixaban [Eliquis] 5 mg ORAL BID #60 tab 12/13/23 04/25/24 Vit No.170/Iron/Folic 1 each PO DAILY #30 tablet 12/13/23 04/13/24 [Dermacinrx Prenatrix Caplet] cloNIDine [Catapres] 0.1 mg PO DAILY #30 tab 12/13/23 04/25/24 Furosemide [Lasix] 40 mg PO DAILY #7 tablet 04/14/24 04/25/24 Potassium Chloride 40 meq PO DAILY #7 tab 04/14/24 04/25/24 Levothyroxine [Synthroid] 25 mcg PO QDAC 04/25/24 04/25/24 - Allergies Allergies/Adverse Reactions: Allergies Allergy/AdvReac Type Severity Reaction Status Date / Time strawberry Allergy Unknown Verified 04/25/24 08:22 venom-honey bee Allergy swelling Verified 04/25/24 08:22 [bee venom (honey bee)] - Social History Does the pt smoke?: No Smoking Status: Never smoker Does the pt drink ETOH?: Yes Does the pt have substance abuse?: No - Immunizations Immunizations are current?: Yes - POLST Patient has POLST: Yes POLST Status: DNR PD ED PE NORMAL - Vitals Vital signs reviewed: Yes - General General: Alert and oriented X 3, No acute distress, Well developed/nourished PD ED PE EXPANDED - HEENT HEENT: Other (punctate, raised vessel in left nare, mucosa of anterior septum, with active bleeding) - Eyes Eyes: Other Results - Vitals Vitals: Vital Signs - 24 hr 04/25/24 08:43 Temperature 36.6 C Heart Rate 81 Respiratory 16 Rate Blood Pressure 151/131 H O2 Saturation 95 Oxygen O2 Source Room air Procedures - Epistaxis - Minor Site: Left Preparation: Clots removed, Afrin, Lidocaine, Clamp / pressure applied Treatment: Silver Nitrate Other: Observed - no bleeding, Pt tolerated well, O2 sat WNL PD Medical Decision Making - ED course Complexity details: considered differential, d/w patient, d/w family ED course: hemostasis achieved with three layers of cautery applied by silver nitrate (see procedure note). No rebleeding after 40 minutes of ED observation. Return precautions reviewed. Departure - Departure Disposition: 01 Home, Self Care Clinical Impression: Epistaxis Condition: Good Instructions: ED Nosebleed Forms: PCP List Discharge Date/Time: 04/25/24 08:44
[2024-04-25] MEDS: LIDOCAINE VISCOUS 2% 15 ML UDC MM STA (05:41)
[2024-04-25] MEDS: TRANEXAMIC ACID 1,000 MG/10 ML VIAL NAS STA (05:41)
[2024-04-25] MEDS: OXYMETAZOLINE HCL 100 SPRAYS BOTTLE NAS STA (05:42)
[2024-04-25] MEDS: SILVER NITRATE APPLICATOR TOP STA (06:59)
[2024-04-25] MEDS: cloNIDine 0.1 MG TABLET PO STA (08:07)
[2024-04-25 08:48] VITALS: BP 151/131; O2SAT 95
== END 2024-04-25 08:44 | disposition home or self-care (01) ==
LOC: EDUNIT# → ED 05:11
DX: R04.0 Epistaxis (principal); I10 Essential (primary) hypertension; E78.00 Pure hypercholesterolemia, unspecified; I48.91 Unspecified atrial fibrillation; Z79.01 Long term (current) use of anticoagulants; Z79.899 Other long term (current) drug therapy
CPT/HCPCS: 30901; 99283; A9270

== ENCOUNTER 2024-06-01 09:24 | Emergency (ER) | payer MEDICARE ==
[2024-06-01 09:41] VITALS: O2SAT 99
[2024-06-01] MEDS: OXYMETAZOLINE HCL 100 SPRAYS BOTTLE NAS STA (09:44)
[2024-06-01] MEDS: TRANEXAMIC ACID 1,000 MG/10 ML VIAL NAS STA (09:44)
--- NOTE | 2024-06-01 09:57 | ED Physician Documentation ---
History of Present Illness - Stated complaint Stated Complaint: NOSE BLEED - Chief complaint Chief Complaint: Heent - History obtained from History obtained from: Patient - History of Present Illness Timing: Last night Pain level max: 0 Pain level now: 0 - Additonal information Additional information: Patient is an 84-year-old female who had a nosebleed last night. It resolved prior to arrival in the emergency department. She is on Eliquis. Does not recall any trauma. States that she has frequent nosebleeds. Nothing makes it better or worse. No lightheadedness, dizziness, shortness of breath. 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 HEENT: None Psych: Anxiety Musculoskeletal: Other Derm: Other - Past Surgical History Past Surgical History: Yes General: Appendectomy Ortho: Amputation Cardiovascular: Vascular surgery HEENT: Tonsil/Adenoidectomy Derm: Skin cancer surgery - Present Medications Home Medications: Ambulatory Orders Medication Instructions Recorded Confirmed Zolpidem Tartrate 10 mg PO QPM PRN 03/19/17 04/25/24 Apixaban [Eliquis] 5 mg ORAL BID #60 tab 12/13/23 04/25/24 Vit No.170/Iron/Folic 1 each PO DAILY #30 tablet 12/13/23 04/13/24 [Dermacinrx Prenatrix Caplet] cloNIDine [Catapres] 0.1 mg PO DAILY #30 tab 12/13/23 04/25/24 Furosemide [Lasix] 40 mg PO DAILY #7 tablet 04/14/24 04/27/24 Potassium Chloride 40 meq PO DAILY #7 tab 04/14/24 04/27/24 Levothyroxine [Synthroid] 25 mcg PO QDAC 04/25/24 04/27/24 - Allergies Allergies/Adverse Reactions: Allergies Allergy/AdvReac Type Severity Reaction Status Date / Time strawberry Allergy Unknown Verified 06/01/24 09:35 venom-honey bee Allergy swelling Verified 06/01/24 09:35 [bee venom (honey bee)] - Social History Does the pt smoke?: No Smoking Status: Never smoker Does the pt drink ETOH?: Yes Does the pt have substance abuse?: No - Immunizations Immunizations are current?: Yes - POLST Patient has POLST: Yes POLST Status: DNR PD ED PE NORMAL - Vitals Vital signs reviewed: Yes - General General: Alert and oriented X 3, No acute distress - HEENT HEENT: Moist mucous membranes, Other (No active bleeding. Dried blood in the left nare.) - Neck Neck: Supple, no meningeal sign - Cardiac Cardiac: RRR, Strong equal pulses - Respiratory Respiratory: No respiratory distress, Clear bilaterally - Derm Derm: Warm and dry - Neuro Neuro: Alert and oriented X 3 - Psych Psych: Normal mood, Normal affect Results - Vitals Vitals: Vital Signs - 24 hr 06/01/24 09:28 Temperature 36.0 C L Heart Rate 86 Respiratory 18 Rate Blood Pressure 155/101 H O2 Saturation 99 Oxygen O2 Source Room air PD Medical Decision Making - ED course Complexity details: re-evaluated patient, considered differential, d/w patient ED course: Intranasal Afrin and tranexamic acid were sprayed into the nose. A nasal clamp was applied. There was no bleeding upon arrival to the emergency department and no further bleeding while in the emergency department. Patient is asymptomatic. We will have her follow-up with her doctor for further care and she will return if she worsens. Patient counseled regarding signs and symptoms for which I believe and urgent re-evaluation would be necessary. Patient with good un derstanding of and agreement to plan and is comfortable going home at this time This document was made in part using voice recognition software. While efforts are made to proofread this document, sound alike and grammatical errors may occur. Departure - Departure Disposition: 01 Home, Self Care Clinical Impression: Epistaxis Condition: Good Instructions: ED Nosebleed Follow-Up: Andre Spring MD [Primary Care Provider] - Comments: Oxymetazoline and tranexamic acid were placed into your nose today to stop the bleeding. Please do not blow your nose or stick anything in your nose for the next 2 days. If rebleeding occurs, reapply the nose clamp. Please follow-up with your doctor for further care and return if you worsen. Forms: PCP List
[2024-06-01 10:52] VITALS: BP 150/107
== END 2024-06-01 10:45 | disposition home or self-care (01) ==
LOC: ED 09:24
DX: R04.0 Epistaxis (principal); Z66 Do not resuscitate
CPT/HCPCS: 99282; 99283; A9270

== ENCOUNTER 2024-06-05 08:04 | Emergency (ER) | payer MEDICARE ==
--- NOTE | 2024-06-05 09:37 | ED Physician Documentation ---
PD HPI SKIN - Stated complaint Stated Complaint: LT LEG PX,SWELLING - Chief complaint Chief Complaint: Wound - History obtained from History obtained from: Patient - Additional information Additional information: The patient comes to the ED with chief complaint of reopening of her left lower extremity wound. 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 She was finally discharged because the wounds seem to be healing up. However, she states she feels like things have been flaring up again over the last couple weeks and yesterday, she noticed more redness over her entire anterior tibial area with a freshly raw area in her skin. She denies drainage. She denies fevers or chills. No other complaints at this time. 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 : None HEENT: None Psych: Anxiety Musculoskeletal: Other Derm: Other - Past Surgical History Past Surgical History: Yes General: Appendectomy Ortho: Amputation Cardiovascular: Vascular surgery HEENT: Tonsil/Adenoidectomy Derm: Skin cancer surgery - Present Medications Home Medications: Ambulatory Orders Medication Instructions Recorded Confirmed Apixaban [Eliquis] 5 mg ORAL BID #60 tab 12/13/23 06/05/24 cloNIDine [Catapres] 0.1 mg PO DAILY #30 tab 12/13/23 06/05/24 Furosemide [Lasix] 40 mg PO DAILY #7 tablet 04/14/24 06/05/24 Levothyroxine [Synthroid] 25 mcg PO QDAC 04/25/24 06/05/24 Pantoprazole Sodium [Protonix] 1 tab PO DAILY 06/05/24 06/05/24 Silver Sulfadiazine Cream 1 applic TOP QD 14 Days #25 gm 06/05/24 [Silvadene Cream] Sulfamethox/Trimeth 800/160 1 each PO BID #14 tablet 06/05/24 [Bactrim Ds 800/160] - Allergies Allergies/Adverse Reactions: Allergies Allergy/AdvReac Type Severity Reaction Status Date / Time strawberry Allergy Unknown Verified 06/05/24 08:13 venom-honey bee Allergy swelling Verified 06/05/24 08:13 [bee venom (honey bee)] - Social History Does the pt smoke?: No Smoking Status: Never smoker Does the pt drink ETOH?: Yes Does the pt have substance abuse?: No - Immunizations Immunizations are current?: Yes - POLST Patient has POLST: Yes POLST Status: DNR PD ED PE NORMAL - Vitals Vital signs reviewed: Yes - General General: Alert and oriented X 3, No acute distress - HEENT HEENT: Atraumatic, EOMI, Moist mucous membranes - Respiratory Respiratory: No respiratory distress - Derm Derm: Warm and dry, Other (Erythema of left anterior tibial area which appears somewhat chronic but also more intense than on the right side. There does appear to be some acute component to it. 2 shallow, full-thickness open sores noted centrally. No drainage or fluctuance. No induration.) - Extremities Extremities: No deformity - Neuro Neuro: Alert and oriented X 3 - Psych Psych: Normal mood, Normal affect Results - Vitals Vitals: Vital Signs - 24 hr 06/05/24 08:13 Temperature 36.4 C L Heart Rate 98 Respiratory 18 Rate Blood Pressure 143/106 H O2 Saturation 95 Oxygen O2 Source Room air PD Medical Decision Making - ED course Complexity details: considered differential, d/w patient ED course: The patient was treated with Bactrim and Silvadene dressing was placed. I have advised the patient to follow-up with her primary doctor to discuss whether she should see wound care again. For now, we will treat her with a weeklong course of antibiotics and have her do daily dressing changes at home and see if this helps get the wound healing again. Departure - Departure Disposition: 01 Home, Self Care Clinical Impression: Chronic wound Cellulitis Qualifiers: Site of cellulitis: extremity Site of cellulitis of extremity: lower extremity Laterality: left Qualified Code(s): L03.116 - Cellulitis of left lower limb Condition: Stable Instructions: ED Infec Skin Cellulitis, ED Wound Care Prescriptions: Sulfamethox/Trimeth 800/160 [Bactrim Ds 800/160] 1 each PO BID #14 tablet Silver Sulfadiazine Cream [Silvadene Cream] 1 applic TOP QD 14 Days #25 gm Comments: Your wound appears fairly chronic. There may be mild infection of the tissue around or may just be inflamed because the wound opened up again. We have started you on oral antibiotics here in the emergency department and placed a dressing with some antibiotic cream to help with healing. You should apply this every day as long as you have a wound and should place a fresh dressing. You may obtain gauze and gauze wraps at the pharmacy [email or web address]. You will need to schedule the next available appointment with Dr. Spring to talk about whether you need to go back to the wound care clinic. Please keep the wound generally clean and dry, though you may gently wash it prior to placing the bandage. Your prescriptions have been electronically transmitted to the [facility] pharmacy, your pharmacy of choice on record. Please pick them up today and begin using immediately. Forms: PCP List
[2024-06-05] MEDS: SILVER SULFADIAZINE CREAM 25 GM TUBE TOP STA (09:50)
[2024-06-05] MEDS: SULFAMETH/TRIMETH DS 800/160 MG TABLET PO STA (09:50)
[2024-06-05 09:59] VITALS: BP 132/86; O2SAT 98
--- NOTE | 2024-06-08 21:10 | ED Physician Documentation ---
ED Addendum - Addendum Addendum: 06/08/24 21:09 Chart was accessed for prescription clarification
--- NOTE | 2024-06-09 07:42 | ED Physician Documentation ---
ED Addendum - Addendum Addendum: 06/09/24 07:42 Chart accessed for prescription clarification. Note was made of that done yesterday but received a fax back from the pharmacy again today. Will specify body part was the main question.
== END 2024-06-05 09:58 | disposition home or self-care (01) ==
LOC: ED 08:04
DX: L03.116 Cellulitis of left lower limb (principal); I10 Essential (primary) hypertension; E78.00 Pure hypercholesterolemia, unspecified; I48.91 Unspecified atrial fibrillation; Z79.01 Long term (current) use of anticoagulants; Z79.899 Other long term (current) drug therapy; Z66 Do not resuscitate
CPT/HCPCS: 99283; A9270

== ENCOUNTER 2024-06-21 10:43 | Emergency (ER) | payer MEDICARE ==
--- NOTE | 2024-06-21 11:09 | ED Physician Documentation ---
History of Present Illness - Stated complaint Stated Complaint: ELEVATED HR AND BP - Chief complaint Chief Complaint: Cardiac - Additonal information Additional information: Patient is an 84-year-old female with past medical history of chronic leg wounds, history of hypertension, history of atrial fibrillation, history of hypothyroidism. Patient presents to the emergency department with diffuse complaints including pruritus to upper back, recent elevated blood pressures and tachycardia at home and persistent nausea and vomiting. Patient presents with daughter who notes symptoms have been going on for the past 5 days. Patient reports multiple episodes of nausea and vomiting yesterday but denies any abdominal pain with her symptoms. She has not had any fevers cough congestion but has been generalized fatigue. She did miss 2 doses of her Lasix over the weekend as she ran out and did not take any of her medications this morning prior to going to wound clinic. At wound clinic patient was transferred over here after being discharged from wound clinic for elevated heart rates. Patient's leg wounds have improved significantly and she was discharged from wound care at this time. Patient denies any worsening leg swelling no fevers or chills. She has been compliant with her medications other than this morning and over the weekend. She denies any recent sick contacts. No chest pain, sob, or headeaches or vision changes with her symptoms. Her daughter noted she was complaining of worsening pruritus to her back yesterday and today. She brought her an antihistamine lotion and placed it on her back yesterday but did not appreciate any rashes. 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 : None HEENT: None Psych: Anxiety Musculoskeletal: Other Derm: Other - Past Surgical History Past Surgical History: Yes General: Appendectomy Ortho: Amputation Cardiovascular: Vascular surgery HEENT: Tonsil/Adenoidectomy Derm: Skin cancer surgery - Present Medications Home Medications: Ambulatory Orders Medication Instructions Recorded Confirmed Apixaban [Eliquis] 5 mg ORAL BID #60 tab 12/13/23 06/05/24 cloNIDine [Catapres] 0.1 mg PO DAILY #30 tab 12/13/23 06/05/24 Furosemide [Lasix] 40 mg PO DAILY #7 tablet 04/14/24 06/05/24 Levothyroxine [Synthroid] 25 mcg PO QDAC 04/25/24 06/05/24 Pantoprazole Sodium [Protonix] 1 tab PO DAILY 06/05/24 06/05/24 Silver Sulfadiazine Cream 1 applic TOP QD 14 Days #25 gm 06/05/24 [Silvadene Cream] Sulfamethox/Trimeth 800/160 1 each PO BID #14 tablet 06/05/24 [Bactrim Ds 800/160] Doxycycline Monohydrate 100 mg PO BID 7 Days #14 cap 06/08/24 Potassium Chloride [K-Dur] 20 meq PO DAILY #10 tablet 06/21/24 - Allergies Allergies/Adverse Reactions: Allergies Allergy/AdvReac Type Severity Reaction Status Date / Time strawberry Allergy Unknown Verified 06/21/24 11:01 venom-honey bee Allergy swelling Verified 06/21/24 11:01 [bee venom (honey bee)] - Social History Does the pt smoke?: No Smoking Status: Never smoker Does the pt drink ETOH?: Yes Does the pt have substance abuse?: No - Immunizations Immunizations are current?: Yes - POLST Patient has POLST: Yes POLST Status: DNR PD ED PE NORMAL - Vitals Vital signs reviewed: Yes - General General: Alert and oriented X 3 - HEENT HEENT: Atraumatic - Neck Neck: Supple, no meningeal sign - Cardiac Cardiac: RRR, No murmur, No gallop, No rub, Strong equal pulses - Respiratory Respiratory: No respiratory distress, Clear bilaterally - Abdomen Abdomen: Normal bowel sounds, Soft, Non tender, Non distended - Back Back: No CVA TTP - Derm Derm: Warm and dry, Other (No rash or excoriations noted to upper back. There does appear to be left leg abrasion but no signs of discharge leg swelling pitting edema or chronic wounds to left leg. 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.) - Extremities Extremities: No deformity - Neuro Neuro: Alert and oriented X 3 Eye Opening: Spontaneous Motor: Obeys Commands Verbal: Oriented GCS Score: 15 Results - Vitals Vitals: Vital Signs - 24 hr 06/21/24 06/21/24 06/21/24 10:51 11:00 13:47 Temperature 36.5 C Heart Rate 115 H 108 H 65 Respiratory 18 18 Rate Blood Pressure 172/127 H 185/130 H 167/129 H O2 Saturation 95 93 95 Oxygen O2 Source Room air - Labs Labs: Laboratory Tests 06/21/24 06/21/24 06/21/24 11:17 11:17 12:03 WBC 4.4 L RBC 4.13 L Hgb 9.9 L Hct 34.0 L MCV 82.3 MCH 24.0 L MCHC 29.1 L RDW 19.6 H Plt Count 272 MPV 9.8 Neut # (Auto) 2.9 Lymph # (Auto) 0.8 L [place] # (Auto) 0.5 Eos # (Auto) 0.1 Baso # (Auto) 0.1 Absolute Nucleated RBC 0.00 Nucleated RBC % 0.0 Sodium 138 Potassium 3.4 L Chloride 103 Carbon Dioxide 26 Anion Gap 9.0 BUN 23 H Creatinine 0.9 Estimated GFR (MDRD) 59 L Glucose 97 Calcium 10.0 Total Bilirubin 1.2 H AST 18 ALT 11 Alkaline Phosphatase 88 Troponin I High Sens 13.8 Total Protein 7.6 Albumin 4.6 Globulin 3.0 Albumin/Globulin Ratio 1.5 Lipase 21 Nasal Adenovirus (PCR) NOT DETECTED Nasal B. parapertussis DNA (PCR) NOT DETECTED Nasal Coronavir 229E PCR NOT DETECTED Nasal Coronavir HKU1 PCR NOT DETECTED Nasal Coronavir NL63 PCR NOT DETECTED Nasal Coronavir OC43 PCR NOT DETECTED Nasal Enterovir/Rhinovir PCR NOT DETECTED Nasal Influenza B PCR NOT DETECTED Nasal Influenza A PCR NOT DETECTED Nasal Parainfluen 1 PCR NOT DETECTED Nasal Parainfluen 2 PCR NOT DETECTED Nasal Parainfluen 3 PCR NOT DETECTED Nasal Parainfluen 4 PCR NOT DETECTED Nasal RSV (PCR) NOT DETECTED Nasal B.pertussis DNA PCR NOT DETECTED Nasal C.pneumoniae (PCR) NOT DETECTED Tom Human Metapneumo PCR NOT DETECTED Nasal M.pneumoniae (PCR) NOT DETECTED Nasal SARS-CoV-2 (PCR) NOT DETECTED - Rads (name of study) Chest X-ray Relevant Findings:: EMP independent interpretation of test PD Medical Decision Making - ED course Complexity details: reviewed old records, reviewed results ED course: Patient is an 84-year-old female presenting to the emergency department with elevated heart rate and elevated blood pressure reading from wound clinic. She notes she was not feeling well the last few days including nausea and vomiting y esterday. She is not taking her Lasix over the weekend or any of her blood pressure medications this morning as she was worried she would throw them up. She denies any nausea at this time no abdominal pain no fevers or chills. She denies any chest pain headaches vision changes or shortness of breath. Vitals on arrival show tachycardia to the 120s with irregular rhythm consistent with atrial fibrillation EKG shows findings similar to previous EKG in the past. Blood pressure reading in the 180s on arrival. Patient was given her home medications well workup was being obtained here in emergency department. Including oral Lasix and clonidine 0.1 mg.Patient had hydrocortisone cream applied by her daughter while here in emergency department which did not seem to improve her pruritus. On physical exam she had no sign of rashes swelling or pain on examination no signs of vesicles or excoriations. It appears diffuse throughout her back on exam. Labs show mild anemia and mild neutropenia chest x-ray shows signs of fluid overload and troponin within normal range. Patient's labs not significantly different from baseline she denies any black or bloody stools. She has history of anemia there does appear to be a change in 12.3-9.9 but patient has had levels of 9.9 hemoglobin in the past. Discussed with patient symptoms all could be secondary to fluid overload she has been urinating here in emergency department after receiving oral dose of Lasix. Patient's blood pressure and heart rate resolved here in emergency department and she is doing significantly better. She denies any persistent pruritus after hydrocortisone. Discussed with patient reassuring workup here she should watch for any worsening leg swelling shortness of breath chest pain dizziness or lightheadedness. She could should continue with her home medications and she has refills of all of her medications. She is slightly hypokalemic instructed patient to have recheck of labs for her anemia and hypokalemia in 1 week by her PCP we will give short course of potassium supplements given she is restarting on her Lasix after not having at the last few days. Patient understands and is agreeable with this pl an. Departure - Departure Disposition: 01 Home, Self Care Clinical Impression: Fluid overload, Anemia, Hypertension, Pulmonary edema, Hypokalemia Condition: Good Instructions: Hypokalemia Dc Comments: You were here in the emergency department for your elevated blood pressure and heart rate symptoms resolved here after you were given your home medications. You can continue with the hydrocortisone cream at home to help with your pruritus of your back no acute rashes were noted watch for any redness swelling warmth any pain shortness of breath or any other new or worsening symptoms. Your workup here was reassuring you did have some low potassium which I have restarted. Please continue with your Lasix at home as you did have some signs of retaining fluid here in emergency department. Have your PCP recheck your labs in about 1 week for improvement in potassium levels. Forms: PCP List
--- NOTE | 2024-06-21 11:21 | XRAY Report ---
PROCEDURE: Chest 1V INDICATIONS: Chest pain TECHNIQUE: One view of the chest was acquired. COMPARISON: 04/13/2024. FINDINGS: Surgical changes and devices: None. Lungs and pleura: Mild interstitial pulmonary edema. Patchy bibasilar atelectasis. Mediastinum: Mediastinal contours appear normal. Cardiomegaly. Bones and chest wall: No suspicious bony lesions. Overlying soft tissues appear unremarkable. IMPRESSION: Congestive heart failure. Reviewed by: Ronald Lee MD on 06/21/2024 11:20 AM PDT Approved by: Ronald Lee MD on 06/21/2024 11:20 AM PDT Station ID: [id number]
[2024-06-21 11:29] LABS: BASOPHILS # (AUTO) 0.1 10^3/uL (0.0-0.1); BASOPHILS % (AUTO) 1.1 %; EOSINOPHILS # (AUTO) 0.1 10^3/uL (0.0-0.7); EOSINOPHILS % (AUTO) 2.5 %; HGB - HEMOGLOBIN 9.9 g/dL (12.0-16.0); LYMPHOCYTES # (AUTO) 0.8 10^3/uL (1.5-3.5); LYMPHOCYTES % (AUTO) 19.3 %; MEAN CORPUSCULAR HGB CONC 29.1 g/dL (32.0-36.0); MEAN CORPUSCULAR VOLUME 82.3 fL (81.0-99.0); MEAN PLATELET VOLUME 9.8 fL (7.9-10.8); MONOCYTES # (AUTO) 0.5 10^3/uL (0.0-1.0); MONOCYTES % (AUTO) 10.8 %; NEUTROPHILS # (AUTO) 2.9 10^3/uL (1.5-6.6); NEUTROPHILS % (AUTO) 66.1 %; PLT - PLATELET COUNT 272 10^3/uL (130-450); RED BLOOD COUNT 4.13 10^6/uL (4.20-5.40); RED CELL DISTRIBUTION WIDTH 19.6 % (12.0-15.0); WHITE BLOOD COUNT 4.4 x10^3/uL (4.8-10.8)
[2024-06-21 11:48] LABS: TROPONIN I HIGH SENSITIVITY 13.8 ng/L (2.3-14.8)
[2024-06-21 11:50] LABS: ALBUMIN 4.6 g/dL (3.2-5.5); ALBUMIN/GLOBULIN RATIO 1.5 (1.0-2.2); BILIRUBIN,TOTAL 1.2 mg/dL (0.2-1.0); CREATININE 0.9 mg/dL (0.6-1.3); POTASSIUM 3.4 mmol/L (3.5-4.5); TOTAL PROTEIN 7.6 g/dL (6.4-8.9)
[2024-06-21] MEDS: APIXABAN 5 MG TABLET PO STA (12:00)
[2024-06-21] MEDS: cloNIDine 0.1 MG TABLET PO STA (12:00)
[2024-06-21] MEDS: FUROSEMIDE 40 MG TABLET PO ONE (12:13)
[2024-06-21] MEDS: LEVOTHYROXINE 25 MCG TABLET PO ONE (12:13)
[2024-06-21 13:57] LABS: B. PARAPERTUSSIS- RESP PCR PAN NOT DETECTED; B. PERTUSSIS- RESP PCR PANEL NOT DETECTED; C. PNEUMONIAE- RESP PCR PANEL NOT DETECTED; CORONAVIRUS 229E-RESP PCR NOT DETECTED; CORONAVIRUS HKU1-RESP PCR NOT DETECTED; CORONAVIRUS NL63-RESP PCR NOT DETECTED; CORONAVIRUS OC43-RESP PCR NOT DETECTED; HUMAN METAPNEUMOVIRUS NOT DETECTED; INFLUENZA A- RESP PCR PANEL NOT DETECTED; INFLUENZA B - RESP PCR PANEL NOT DETECTED; M. PNEUMONIAE- RESP PCR PANEL NOT DETECTED; PARAINFLUENZA VIRUS 1 NOT DETECTED; PARAINFLUENZA VIRUS 2 NOT DETECTED; PARAINFLUENZA VIRUS 3 NOT DETECTED; PARAINFLUENZA VIRUS 4 NOT DETECTED; RHINOVIRUS/ENTEROVIRUS NOT DETECTED; RSV- RESP PCR PANEL NOT DETECTED; SARS-CoV-2 -RESP PCR PANEL NOT DETECTED
[2024-06-21] MEDS: POTASSIUM CHLORIDE 20 MEQ TABLET PO STA (14:30)
[2024-06-21 15:12] VITALS: BP 154/115; O2SAT 96
== END 2024-06-21 15:10 | disposition home or self-care (01) ==
LOC: ED 10:43
DX: E87.70 Fluid overload, unspecified (principal); D64.9 Anemia, unspecified; E87.6 Hypokalemia; I10 Essential (primary) hypertension; J81.1 Chronic pulmonary edema; I48.91 Unspecified atrial fibrillation; L29.9 Pruritus, unspecified; S80.812A Abrasion, left lower leg, initial encounter; T50.1X6A Underdosing of loop [high-ceiling] diuretics, initial encounter; Z91.138 Patient's unintentional underdosing of medication regimen for other reason; Z79.01 Long term (current) use of anticoagulants
CPT/HCPCS: 36415; 71045; 80053; 83690; 84484; 85025; 87633; 93005; 99284; A9270

== ENCOUNTER 2024-09-06 06:37 | Inpatient (IN) ==
[2024-09-06] MEDS ORDERED: cefTRIAXone 1 GM VIAL ONE (06:55)
[2024-09-06] MEDS: cefTRIAXone 1 GM in SODIUM CHLORIDE 0.9% MINIBAG 100 ML IV STA (06:57)
[2024-09-06] MEDS: SODIUM CHLORIDE 0.9% 1,500 ML IV ONE (06:57)
[2024-09-06 07:14] LABS: BASOPHILS % (AUTO) 0.4 %; EOSINOPHILS % (AUTO) 0.8 %; HCT - HEMATOCRIT 36.3 % (37.0-47.0); HGB - HEMOGLOBIN 9.7 g/dL (12.0-16.0); LYMPHOCYTES % (AUTO) 1.2 %; MEAN CORPUSCULAR HEMOGLOBIN 19.2 pg (27.0-31.0); MEAN CORPUSCULAR HGB CONC 26.7 g/dL (32.0-36.0); MEAN CORPUSCULAR VOLUME 71.7 fL (81.0-99.0); MEAN PLATELET VOLUME 9.3 fL (7.9-10.8); NEUTROPHILS % (AUTO) 95.8 %; PLT - PLATELET COUNT 241 10^3/uL (130-450); RED BLOOD COUNT 5.06 10^6/uL (4.20-5.40); RED CELL DISTRIBUTION WIDTH 22.3 % (12.0-15.0); WHITE BLOOD COUNT 21.3 x10^3/uL (4.8-10.8)
--- NOTE | 2024-09-06 07:18 | ED Physician Documentation ---
History of Present Illness Stated complaint Stated Complaint: MALAISE/FEVER Chief complaint Chief Complaint: Fever History obtained from History obtained from: Patient and EMS History of Present Illness Pain level max: 0 Pain level now: 0 Additonal information Additional information: 84-year-old female presents to the emergency department stating she has been sick for the past 3 days. Unable to describe much more than that. Apparently awoke this morning with generalized weakness. She is found to be in atrial fibrillation with rapid ventricular response on arrival. No abdominal pain or chest pain. No vomiting. No diarrhea. Daughter arrived to the emergency department states that the patient has been living with her since . She states the patient intermittently has had nausea, vomiting, diarrhea since that time. She states she had vomiting last night. No recent travel. No recent antibiotics. No blood in the stool that the daughter is aware of. Patient did have a mild cough in the emergency department. Review of Systems Status of ROS: unobtainable due to medical condition (Altered mental status) Constitutional Reports: Fever and Chills Ears, nose, mouth, and throat Denies: Neck pain Respiratory Reports: Cough Gastrointestinal Denies: Nausea, Vomiting or Diarrhea Genitourinary Denies: Painful urination Musculoskeletal Denies: Back pain or Neck pain Integumentary/Breast Denies: Rash Meds/Allgy Home Medications Ambulatory Orders Medication Instructions Recorded Confirmed apixaban 5 mg tablet (Eliquis) 5 mg ORAL BID chronic atrial fib 12/13/23 07/18/24 #60 tabs clonidine HCl 0.1 mg tablet 0.1 mg PO DAILY HTN #30 tabs 12/13/23 07/18/24 furosemide 40 mg tablet 40 mg PO DAILY #7 tabs 04/14/24 07/18/24 levothyroxine 25 mcg tablet 25 mcg PO QDAC 04/25/24 07/18/24 pantoprazole 20 mg tablet,delayed 1 tab PO DAILY 06/05/24 07/18/24 release (Protonix) silver sulfadiazine 1 % topical 1 applic topical QD 14 days #25 06/05/24 07/18/24 cream grams potassium chloride 20 mEq 20 meq PO DAILY #10 tabs 06/21/24 07/18/24 tablet,extended release(part/cryst) (Klor-Con M) cetirizine 10 mg tablet 10 mg PO BID #14 tabs 08/04/24 dexamethasone 4 mg tablet 4 mg PO DAILY #5 tabs 08/04/24 hydrocodone 5 mg-acetaminophen 325 1 - 2 tab PO Q4H PRN pain #14 tabs 08/26/24 mg tablet Allergies Allergies Allergy/AdvReac Type Severity Reaction Status Date / Time strawberry Allergy Unknown Verified 09/06/24 06:45 venom-honey bee (bee venom Allergy swelling Verified 09/06/24 06:45 (honey bee)) [facility] Social History Social History Smoking Status: Never smoker Second hand tobacco smoke exposure: No Do you dip or chew tobacco?: No Do you vape?: No Patient requests smoking cessation consult: No Initiate information on smoking cessation: No Living arrangement: [facility] Marital Status: Living Condition: Alone Support Person: No Relationship: Level: Independent Home Mobility Equipment: Cane and Walker Do you feel safe in your home environment?: Yes Suffered physical, verbal, emotional, or financial abuse?: No History of Abuse: No Frequency: Occasional Substance Use: denies use Service: No POLST Patient has POLST: Yes POLST Status: DNR Exam Constitutional normal general appearance and no apparent distress HENMT oropharynx normal moist mucous membranes Eyes PERRL Neck/C-Spine visual inspection normal Respiratory breath sounds equal bilaterally, normal respiratory effort and clear to a uscultation bilaterally Cardiovascular Tachycardic, irregular Gastrointestinal abdomen normal to inspection, abdomen soft to palpation, nontender to palpation and nondistended Genitourinary no CVA tenderness Back/Pelvis no thoracic spine tenderness and no lumbar spine tenderness Extremities Significant cellulitis to the right lower extremity, especially the medial aspect of the right thigh and lower leg. No crepitus. No ecchymosis. Neurology speech normal Psychiatry Oriented to person and place, confused to time. Restless in the bed, drowsy Skin skin color normal Results Vitals Vitals: Vital Signs - 24 hr 09/06/24 06:41 09/06/24 06:47 09/06/24 07:19 Temperature 37.5 C 39.0 C H Temperature Source Oral Rectal Pulse Rate 75 191 H Respiratory Rate 28 H 34 H Blood Pressure 174/114 H 155/97 H O2 Saturation 96 90 L Oxygen Delivery Method O2 Source Nasal cannula Nasal cannula Oxygen Flow Rate If not protocol: Oxygen Flow, liters/minute 3.5 5 Pain Intensity 0 0 09/06/24 07:30 09/06/24 07:40 09/06/24 07:47 Temperature Temperature Source Pulse Rate 166 H 171 H 152 H Respiratory Rate 37 H 36 H 38 H Blood Pressure 142/81 H 117/83 141/93 H O2 Saturation 90 L 92 92 Oxygen Delivery Method O2 Source Nasal cannula Nasal cannula Nasal cannula Oxygen Flow Rate If not protocol: Oxygen Flow, liters/minute 5 5 5 Pain Intensity 09/06/24 07:59 09/06/24 08:00 09/06/24 08:30 Temperature Temperature Source Pulse Rate 142 H 148 H 150 H Respiratory Rate 22 30 H 34 H Blood Pressure 142/99 H 129/90 O2 Saturation 91 L 86 L Oxygen Delivery Method O2 Source Nasal cannula Nasal cannula Nasal cannula Oxygen Flow Rate If not protocol: Oxygen Flow, liters/minute 5 5 5 Pain Intensity 09/06/24 09:00 09/06/24 09:00 09/06/24 09:30 Temperature Temperature Source Pulse Rate 127 H 116 H Respiratory Rate 32 H 34 H Blood Pressure 112/87 123/80 O2 Saturation 86 L 86 L Oxygen Delivery Method Non-Rebreather O2 Source Non-rebreather mask Non-rebreather mask Oxygen Flow Rate 15 If not protocol: Oxygen Flow, liters/minute 15 15 Pain Intensity Oxygen O2 Source Non-rebreather mask Oxygen Flow Rate 15 EKG (time done) 0640: EKG releavant findings:: EKG personally interpreted by author of this note. Relevant findings are: Rate: Other (193 - afib RVR, normal axis, normal QRS. rate related repol abnormalities) Labs Labs: Laboratory Tests 09/06/24 09/06/24 09/06/24 06:53 06:55 07:01 WBC 21.3 H RBC 5.06 Hgb 9.7 L Hct 36.3 L MCV 71.7 L MCH 19.2 L MCHC 26.7 L RDW 22.3 H Plt Count 241 MPV 9.3 Neut # (Auto) Not Reportable Lymph # (Auto) Not Reportable Will # (Auto) Not Reportable Eos # (Auto) Not Reportable Baso # (Auto) Not Reportable Absolute Nucleated RBC Not Reportable Total Counted 100 Band Neuts % (Manual) 24 H Abnorm Lymph % (Manual) 0 Metamyelocytes % 2 H Nucleated RBC % Not Reportable Neutrophils # (Manual) 20.7 H Lymphocytes # (Manual) 0.2 L Monocytes # (Manual) 0.0 Eosinophils # (Manual) 0.0 Basophils # (Manual) 0.0 Nucleated RBCs 2 Differential Comment MANUAL DIFFERENTIAL RBC Morph Micro Appear 4+ ANISOCYTOSIS Sodium 142 Potassium 3.5 Chloride 108 Carbon Dioxide 21 Anion Gap 13.0 BUN 20 Creatinine 1.4 H Estimated GFR (MDRD) 36 L Glucose 95 Lactic Acid 7.5 H* Calcium 9.2 Total Bilirubin 1.8 H AST 16 ALT 8 L Alkaline Phosphatase 65 Total Protein 6.5 Albumin 4.0 Globulin 2.5 Albumin/Globulin Ratio 1.6 Urine Color DARK YELLOW Urine Clarity CLEAR Urine pH 6.0 Ur Specific [place] >=1.030 H Urine Protein 100 H Urine Glucose (UA) NEGATIVE Urine Ketones TRACE Urine Occult Blood TRACE-INTA Urine Nitrite NEGATIVE Urine Bilirubin SMALL H Urine Urobilinogen 0.2 (NORMAL) Ur Leukocyte Esterase NEGATIVE Urine RBC 0-5 Urine WBC 6-10 H Urine WBC Clumps PRESENT Ur Squamous Epith Cells NONE SEEN Urine Bacteria Moderate H Urine Culture Comments NOT INDICATED Nasal Adenovirus (PCR) NOT DETECTED Nasal B. parapertussis DNA (PCR) NOT DETECTED Nasal Coronavir 229E PCR NOT DETECTED Nasal Coronavir HKU1 PCR NOT DETECTED Nasal Coronavir NL63 PCR NOT DETECTED Nasal Coronavir OC43 PCR NOT DETECTED Nasal Enterovir/Rhinovir PCR NOT DETECTED Nasal Influenza B PCR NOT DETECTED Nasal Influenza A PCR NOT DETECTED Nasal Parainfluen 1 PCR NOT DETECTED Nasal Parainfluen 2 PCR NOT DETECTED Nasal Parainfluen 3 PCR NOT DETECTED Nasal Parainfluen 4 PCR NOT DETECTED Nasal RSV (PCR) NOT DETECTED Nasal B.pertussis DNA PCR NOT DETECTED Nasal C.pneumoniae (PCR) NOT DETECTED Tom Human Metapneumo PCR NOT DETECTED Nasal M.pneumoniae (PCR) NOT DETECTED Nasal SARS-CoV-2 (PCR) NOT DETECTED Rads (name of study) cxr: Relevant Findings:: Final report received PD Medical Decision Making ED course Complexity details: reviewed results, considered differential, d/w patient, d/w family and d/w business management consultant ED course: 84-year-old female presents to the emergency department with sepsis, potentially from multiple sources. Could have pneumonia on chest x-ray. Urinalysis appears to have bacteria in the urine. Right lower extremity has a significant cellulitis. Covered with broad-spectrum antibiotics including azithromycin as there is mycoplasma in the community currently. She was given diltiazem for the atrial fibrillation with rapid ventricular response and started on diltiazem drip. Given several liters of IV fluid. Discussed the case with her daughter both at the bedside and her daughter in [place]. They do confirm that she is DNR but would like full treatment up until that time. Counseled regarding the high mortality rate, especially given her lactate of over 7. Family states understanding of this. Discussed the case with Dr. Sutton, hospitalist who accepts. Will admit for sepsis, A-fib RVR. Sepsis Event Sepsis Onset Date: 09/06/24 Sepsis Onset Time: 07:30 Current Stage of Sepsis: Sepsis Initial Hypotension: Not hypotensive Possible source of Sepsis: Pulmonary, Genitourinary and Skin/soft tissue Mental/Cognitive Status: Confused and Change from baseline Reason for not giving 30ml/kg crystalloid fluids: Fluid overload potential Capillary refill: Less than 2 seconds Peripheral Pulse Strength: 2+ Slightly Diminished Peripheral Pulse Location: Radial Bedside ultrasound performed: No Discharge Plan Discharge Patient Disposition: [facility] DC/Xfer Condition: Serious Clinical Impression: Atrial fibrillation with RVR, Acute UTI Cellulitis Qualifiers: Site of cellulitis: extremity Site of cellulitis of extremity: lower extremity Laterality: left Qualified Code(s): L03.116 - Cellulitis of left lower limb Pneumonia Qualifiers: Pneumonia type: due to unspecified organism Laterality: right Lung location: lower lobe of lung Qualified Code(s): J18.9 - Pneumonia, unspecified organism Sepsis Qualifiers: Sepsis type: sepsis due to unspecified organism Sepsis acute organ dysfunction status: unspecified Qualified Code(s): A41.9 - Sepsis, unspecified organism Interventions: ED Admission Assessment Last Done: 09/06/24 10:38
[2024-09-06 07:23] LABS: ABNORMAL LYMPHS % (MANUAL) 0 %
[2024-09-06 07:25] LABS: ALBUMIN/GLOBULIN RATIO 1.6 (1.0-2.2); BILIRUBIN,TOTAL 1.8 mg/dL (0.2-1.0); CALCIUM 9.2 mg/dL (8.5-10.3); CREATININE 1.4 mg/dL (0.6-1.3); POTASSIUM 3.5 mmol/L (3.5-4.5); TOTAL PROTEIN 6.5 g/dL (6.4-8.9)
[2024-09-06] MEDS: diltiaZEM INJ 5 MG/ML VIAL IVP STA ×2 (07:28→07:42)
[2024-09-06 07:31] LABS: LACTIC ACID, VENOUS 7.5 mmol/L (0.5-2.2)
[2024-09-06] MEDS: IPRATROPIUM/ALBUTEROL 3 ML NEB INH STA (07:49)
[2024-09-06 07:50] LABS: BAND NEUTROPHILS % (MANUAL) 24 %; DIFFERENTIAL COMMENT MANUAL DIFFERENTIAL; LYMPHOCYTES # (MANUAL) 0.2 10^3/uL (1.5-3.5); LYMPHOCYTES % (MANUAL) 1 %; METAMYELOCYTES % (MANUAL) 2 %; NEUTROPHILS # (MANUAL) 20.7 10^3/uL (1.5-6.6); NUCLEATED RBC (MANUAL) 2 %; RBC MORPHOLOGY (MULTIPLE) 4+ ANISOCYTOSIS (NORMAL)
[2024-09-06] MEDS: diltiaZEM INJ 125 MG in DEXTROSE 5% 100 ML IV STA (08:10)
--- NOTE | 2024-09-06 08:13 | XRAY Report ---
PROCEDURE: XR Chest 1V INDICATIONS: Sepsis TECHNIQUE: One view of the chest was acquired. COMPARISON: 06/21/2024 and 04/13/2024. FINDINGS: Surgical changes and devices: None. Lungs and pleura: Patient is rotated. There is suggestion of subtle right lower lobe infiltrate vers us atelectasis. Mild pulmonary vascular congestion and trace amount of bilateral pleural effusion is seen greater on the right side. No pneumothorax. Mediastinum: Mediastinal contours appear normal. Heart size is enlarged. Bones and chest wall: No suspicious bony lesions. Overlying soft tissues appear unremarkable. IMPRESSION: Pulmonary vascular congestion with questionable right lower lobe small infiltrate versus atelectasis. Clinical correlation and radiographic follow-up is recommended. Trace bilateral pleural effusion. No pneumothorax. No significant discrepancies from preliminary readings. Reviewed by: Marcelino Rowell MD on 09/06/2024 8:11 AM PST Approved by: Marcelino Rowell MD on 09/06/2024 8:11 AM PST Station ID: [id number]
[2024-09-06 08:24] LABS: BILIRUBIN,URINE SMALL (NEGATIVE); CLARITY,URINE CLEAR (CLEAR); GLUCOSE, URINE (UA) NEGATIVE (NEGATIVE); KETONES,URINE (UA) TRACE mg/dL (NEGATIVE); LEUKOCYTE ESTERASE, URINE NEGATIVE (NEGATIVE); NITRITE,URINE NEGATIVE (NEGATIVE); OCCULT BLOOD,URINE TRACE-INTA (NEGATIVE); PROTEIN,URINE 100 mg/dL (NEGATIVE); UROBILINOGEN,URINE 0.2 (NORMAL) E.U./dL (NORMAL)
[2024-09-06 08:29] LABS: B. PARAPERTUSSIS- RESP PCR PAN NOT DETECTED; B. PERTUSSIS- RESP PCR PANEL NOT DETECTED; C. PNEUMONIAE- RESP PCR PANEL NOT DETECTED; CORONAVIRUS 229E-RESP PCR NOT DETECTED; CORONAVIRUS HKU1-RESP PCR NOT DETECTED; CORONAVIRUS NL63-RESP PCR NOT DETECTED; CORONAVIRUS OC43-RESP PCR NOT DETECTED; HUMAN METAPNEUMOVIRUS NOT DETECTED; INFLUENZA A- RESP PCR PANEL NOT DETECTED; INFLUENZA B - RESP PCR PANEL NOT DETECTED; M. PNEUMONIAE- RESP PCR PANEL NOT DETECTED; PARAINFLUENZA VIRUS 1 NOT DETECTED; PARAINFLUENZA VIRUS 2 NOT DETECTED; PARAINFLUENZA VIRUS 3 NOT DETECTED; PARAINFLUENZA VIRUS 4 NOT DETECTED; RHINOVIRUS/ENTEROVIRUS NOT DETECTED; RSV- RESP PCR PANEL NOT DETECTED; SARS-CoV-2 -RESP PCR PANEL NOT DETECTED
[2024-09-06 08:30] LABS: BACTERIA,URINE Moderate /HPF (None Seen); RBC,URINE 0-5 /HPF (0-5); SQUAMOUS EPITHELIAL CELL,UR NONE SEEN (<= Few); WBC CLUMPS,URINE PRESENT
[2024-09-06] MEDS: VANCOMYCIN INJ 1 GM in SODIUM CHLORIDE 0.9% 250 ML IV STA (08:40)
[2024-09-06] MEDS: SODIUM CHLORIDE 0.9% 1,000 ML IV STA (08:41)
[2024-09-06 10:32] LABS: LACTIC ACID, VENOUS 4.7 mmol/L (0.5-2.2)
[2024-09-06] MEDS ORDERED: SODIUM CHLORIDE FLUSH 0.9% 10 ML SYRINGE IVP PRN (10:45)
--- NOTE | 2024-09-06 11:05 | HISTORY & PHYSICAL EXAMINATION ---
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 Patient is not able to fully give history due to lethargy, and altered mentation. ER documentation reviewedER physician spoke with daughter who stated that since , patient has had intermittent nausea, vomiting. Spoke with both daughters - Alexia ([phone]) and Aria ([phone]) in a conference call to elicit further history: She lives with Aria - She had one episode of diarrhea on Tuesday, for which Aria gave her Imodium, which effectively resolved the issue. She then had some weakness over the weekend resulting in a fall. This was witnessed. She did not hit her head. Yesterday, she was doing a lot better. She had a few glasses of wine. She took a nap, and woke up with confusion, was very emotionally labile. She had one episode of emesis, which her daughter describes as large volume with no blood in it. She had no more episodes of diarrhea, nausea, or vomiting after this. Earlier this morning, around 4 AM, her daughter awoke to her calling for her - she said she was shaking, cold, had chills. At this time, EMS was called. Once patient got here, she was found to be in A-fib with RVR, with heart rate as high as 191. Her blood pressure was 140s over 80s, she is saturating 90 L, and was placed on 5 L. She received 2 pushes of Cardizem, and then was started on a Cardizem drip. Lab work was significant for a leukocytosis of 21.3, hemoglobin, around her baseline of 9.7, creatinine with mild elevation of 1.4, with baseline around 1-1.3. Her lactic acid was elevated at 7.5. After IV fluid resuscitation of 2 L, did decrease to 4.7. Her bilirubin was elevated at 1.8. Her urine did show WBCs, as well as moderate bacteria. Respiratory viral panel was negative. Imaging, including his chest x-ray showed pulmonary vascular congestion, with right lower lobe infiltrate. She was admitted to the ICU for further workup and treatment. Meds/Allgy Home Medications Ambulatory Orders Medication Instructions Recorded Confirmed apixaban 5 mg tablet (Eliquis) 5 mg ORAL BID chronic atrial fib 12/13/23 07/18/24 #60 tabs clonidine HCl 0.1 mg tablet 0.1 mg PO DAILY HTN #30 tabs 12/13/23 07/18/24 furosemide 40 mg tablet 40 mg PO DAILY #7 tabs 04/14/24 07/18/24 levothyroxine 25 mcg tablet 25 mcg PO QDAC 04/25/24 07/18/24 pantoprazole 20 mg tablet,delayed 1 tab PO DAILY 06/05/24 07/18/24 release (Protonix) silver sulfadiazine 1 % topical 1 applic topical QD 14 days #25 06/05/24 07/18/24 cream grams potassium chloride 20 mEq 20 meq PO DAILY #10 tabs 06/21/24 07/18/24 tablet,extended release(part/cryst) (Klor-Con M) cetirizine 10 mg tablet 10 mg PO BID #14 tabs 08/04/24 dexamethasone 4 mg tablet 4 mg PO DAILY #5 tabs 08/04/24 hydrocodone 5 mg-acetaminophen 325 1 - 2 tab PO Q4H PRN pain #14 tabs 08/26/24 mg tablet Allergies Allergies Allergy/AdvReac Type Severity Reaction Status Date / Time strawberry Allergy Unknown Verified 09/06/24 06:45 venom-honey bee (bee venom Allergy swelling Verified 09/06/24 06:45 (honey bee)) [facility] Social History Social History Smoking Status: Never smoker Second hand tobacco smoke exposure: No Do you dip or chew tobacco?: No Do you vape?: No Patient requests smoking cessation consult: No Initiate information on smoking cessation: No Living arrangement: shelter Marital Status: Living Condition: Alone Support Person: No Relationship: Level: Independent Home Mobility Equipment: Cane and Walker Do you feel safe in your home environment?: Yes Suffered physical, verbal, emotional, or financial abuse?: No History of Abuse: No Frequency: Occasional Substance Use: denies use Service: No POLST Patient has POLST: Yes POLST Status: DNR Review of Systems Status of ROS: unobtainable due to medical condition and unobtainable due to mental status Gastrointestinal Denies: Nausea, Vomiting or Diarrhea Prior Level of Functionality: Lives with daughter, who helps with activities of daily living. Exam Constitutional normal general appearance and distress noted (mild) (anxious, restless) HENMT normocephalic, head/scalp atraumatic and oropharynx abnormal (dry mucus membranes noted) other moist mucous membranes Eyes PERRL and EOMs intact bilaterally Neck/C-Spine visual inspection normal Chest inspection of chest normal Respiratory breath sounds equal bilaterally, normal respiratory effort and rales noted (base) Cardiovascular heart rate abnormal (tachycardic), rhythm abnormal (irregular) and no murmur Tachycardic, irregular Gastrointestinal abdomen normal to inspection, abdomen soft to palpation, nontender to palpation and nondistended Genitourinary no CVA tenderness Extremities no deformity no edema Neurology no movement abnormality noted and no focal motor deficit noted Psychiatry mental status grossly normal and oriented x3 Skin skin color normal and rash noted (erythema noted in bilateral lower extremities) Sepsis Event Note (H) Evaluation Current Stage of Sepsis: Severe sepsis Possible source of Sepsis: positive Pulmonary Sepsis Criteria Sepsis Criteria: Recorded Temperature greater than 38.3C or Less than 36C, Recorded Heart Rate greater than 90 bpm and WBC count greater than 12,000 or less than 4000 Conclusion/Plan Problem List (1) Sepsis: Plan: Patient presented with A-fib with RVR as high as 190, leukocytosis of 21, tachypnea, and has been febrile with a temp of 102.2. Chest x-ray shows possible right lower lobe consolidation. UA is also positive. Patient has a history of a right lower extremity squamous cell carcinoma and there is erythema currently around the area. Will treat with vancomycin and cefepime to cover broadly for any source of infection. Blood cultures ordered, pending. Patient received adequate IV fluid resuscitation. Will hold on maintenance fluids at this time as patient has a history of congestive heart failure and has known to get fluid overloaded in the past. Qualifiers: Sepsis acute organ dysfunction status: unspecified Sepsis type: sepsis due to unspecified organism Qualified Code(s): A41.9 - Sepsis, unspecified organism (2) Pneumonia: Plan: Treatment as above. Qualifiers: Laterality: right Lung location: lower lobe of lung Pneumonia type: d ue to unspecified organism Qualified Code(s): J18.9 - Pneumonia, unspecified organism (3) Atrial fibrillation with RVR: Plan: Patient was given 2 pushes of IV diltiazem, and started on a IV drip. This has been down titrated since being admitted to the ICU. Will continue her Eliquis. (4) Altered mental status: Plan: Likely due to sepsis above. Patient's mental status is improving. She is conversive, speaking in short sentences, is alert and oriented x 1-2. Qualifiers: Altered mental status type: unspecified Qualified Code(s): R41.82 - Altered mental status, unspecified (5) Acute kidney injury: Plan: Likely ATN in setting of severe sepsis. Received IV fluids, will continue to trend. (6) Lactic acidosis: Plan: Likely secondary to hypoperfusion in setting of atrial fibrillation with RVR, as well as sepsis. Received IV fluids, downtrending. Continue to trend until normalization. (7) Non-pressure chronic ulcer of other part of left lower leg with fat layer exposed: Plan: Patient has a locally advanced, cell carcinoma of the right malleolus. May have some superimposed cellulitis on top of this. Continue localized wound care, continue to monitor. (8) Hypothyroidism (acquired): Plan: Continue levothyroxine 25 mcg as per home dose. Lab Results Lab results reviewed: Yes 09/06/24 07:01 09/06/24 07:01 Diagnostic Imaging Results Diagnostic Imaging Results: positive Final report reviewed EKG Results EKG Interpreted Independently: Yes Core Measures Anticipated LOS I expect patient to be DC'd or transferred within 96 hours.: No DVT/VTE - Prophylaxis VTE/DVT Device ordered at admit?: Yes VTE/DVT Prophylaxis med ordered at admit?: Yes Stroke - Rehab Assessment Rehab services assessment to be ordered?: Yes AMI - Statin at Admit Aspirin Prescribed on Admit: No Not Ordered - Medical Reason: Not indicated
[2024-09-06] MEDS: VANCOMYCIN INJ 500 MG in SODIUM CHLORIDE 0.9% MINIBAG 100 ML IV ONE (12:23)
[2024-09-06 13:48] LABS: LACTIC ACID, VENOUS 5.2 mmol/L (0.5-2.2)
[2024-09-06] MEDS: SODIUM CHLORIDE 0.9% 500 ML IV ONE ×2 (14:10→18:55)
[2024-09-06] MEDS: CEFEPIME 2 GM VIAL IVP SCH (14:28)
--- NOTE | 2024-09-06 14:53 | PHARMACY PROGRESS NOTE ---
Best Possible Medication History Admit Date and Time: 09/06/24 [id number] Home Medications Medication Instructions Recorded Confirmed Type apixaban 5 mg tablet (Eliquis) 5 mg ORAL BID chronic atrial fib 12/13/23 09/06/24 Rx #60 tabs levothyroxine 25 mcg tablet 100 mcg PO QDAC 04/25/24 09/06/24 History potassium chloride 20 mEq 20 meq PO DAILY #10 tabs 06/21/24 09/06/24 Rx tablet,extended release(part/cryst) (Klor-Con M) clonidine HCl 0.1 mg tablet 0.1 mg PO QPM HTN 09/06/24 09/06/24 History furosemide 40 mg tablet 20 mg PO DAILY 09/06/24 09/06/24 History multivitamin (Daily Multi-Vitamin 1 tab PO DAILY 09/06/24 09/06/24 History tablet) pantoprazole 40 mg tablet,delayed 40 mg PO DAILY 09/06/24 09/06/24 History release Processed by: Pharmacy Medications reviewed in ED?: No Medication History completed: Yes Patient Interview: Pt unable to participate Secondary Source(s): Other family member (Daughter, Aria) and Physician records [facility] Statement: As the person ultimately responsible for medication therapy, providers are able to order a medication from an existing home medication list in [facility] via the "Reconcile Routine" prior to Confirmation of that medication by academic support assistant. Such practice is discouraged except when the physician, in their clinical judgment, deems that a medical need exists for a medication without regard to previous use.
[2024-09-06 15:50] LABS: LACTIC ACID, VENOUS 4.6 mmol/L (0.5-2.2)
[2024-09-06] MEDS: diltiaZEM INJ 125 MG in DEXTROSE 5% 100 ML IV SCH (16:10)
[2024-09-06] MEDS: ACETAMINOPHEN 325 MG TABLET PO PRN (16:24)
[2024-09-06] MEDS ORDERED: ACETAMINOPHEN 1,000 MG/100 ML 1,000 MG/100 ML BAG IV PRN (16:43)
[2024-09-06 18:34] LABS: LACTIC ACID, VENOUS 3.4 mmol/L (0.5-2.2)
[2024-09-06] MEDS: SODIUM CHLORIDE FLUSH 0.9% 10 ML SYRINGE IVP SCH (18:35)
[2024-09-06] MEDS: HYDROcod/ACETAM 5/325 MG TABLET PO PRN (19:59)
[2024-09-06] MEDS: APIXABAN 5 MG TABLET PO SCH (20:24)
[2024-09-06 21:36] LABS: CALCIUM, IONIZED 0.91 mmol/L (1.15-1.33); VBG PH 7.45 (7.31-7.41)
[2024-09-06 21:43] LABS: MAGNESIUM 1.6 mg/dL (1.7-2.3); PHOSPHORUS 4.1 mg/dL (2.5-5.0)
[2024-09-06] MEDS: METOPROLOL 5 MG/5 ML VIAL IVP SCH (22:03)
[2024-09-06] MEDS: POTASSIUM CHLOR 10 MEQ/100 ML 10 MEQ/100 ML BAG IV SCH (22:35)
[2024-09-06] MEDS: MAGNESIUM SULFATE 2 GRAM 2 GM/50 ML BAG IV ONE (22:39)
[2024-09-06] MEDS: CALCIUM GLUCONATE IN NS 0.9% 2,000 MG/100 ML BAG IV ONE (23:39)
[2024-09-07 04:42] LABS: HGB - HEMOGLOBIN 11.6 g/dL (12.0-16.0); MEAN CORPUSCULAR HEMOGLOBIN 19.2 pg (27.0-31.0); MEAN CORPUSCULAR VOLUME 71.3 fL (81.0-99.0); MEAN PLATELET VOLUME 9.7 fL (7.9-10.8); RED BLOOD COUNT 6.03 10^6/uL (4.20-5.40); RED CELL DISTRIBUTION WIDTH 23.4 % (12.0-15.0); WHITE BLOOD COUNT 31.3 x10^3/uL (4.8-10.8)
[2024-09-07 04:50] LABS: CALCIUM, IONIZED 0.98 mmol/L (1.15-1.33); VBG PH 7.377 (7.31-7.41)
[2024-09-07 04:56] LABS: LACTIC ACID, VENOUS 2.1 mmol/L (0.5-2.2)
[2024-09-07 04:57] LABS: CALCIUM 8.6 mg/dL (8.5-10.3); CREATININE 1.9 mg/dL (0.6-1.3); MAGNESIUM 2.2 mg/dL (1.7-2.3); PHOSPHORUS 4.3 mg/dL (2.5-5.0); POTASSIUM 3.6 mmol/L (3.5-4.5)
[2024-09-07] MEDS: LEVOTHYROXINE 25 MCG TABLET PO SCH (06:31)
[2024-09-07] MEDS: POTASSIUM CHLORIDE 20 MEQ TABLET PO ONE ×2 (06:31→12:00)
[2024-09-07] MEDS: CALCIUM GLUCONATE IN NS 0.9% 2,000 MG/100 ML BAG IV ONE ×2 (06:32→11:45)
[2024-09-07] MEDS: PANTOPRAZOLE 40 MG TABLET PO SCH (06:54)
[2024-09-07] MEDS ORDERED: METOPROLOL 5 MG/5 ML VIAL IVP PRN (07:02)
[2024-09-07 08:10] LABS: LACTIC ACID, VENOUS 2.1 mmol/L (0.5-2.2)
[2024-09-07] MEDS: cefTRIAXone 1 GM VIAL IVP SCH (08:17)
--- NOTE | 2024-09-07 08:52 | PROVIDER PROGRESS NOTE ---
Subjective Subjective Subjective: Today, patient states that she is feeling better. She is alert and oriented x 4. She has no difficulty breathing. She has no fevers or chills. She has no chest pain or feelings of palpitations. Although she cannot fully remember what happened, she does express some frustration at her home living situation. She would not like to be in a alf nor would she like to live with her daughter. She understands that she cannot safely live by herself though. Current Medications Current Medications Current Medications: Current Medications Generic Name Dose Route Start Last Admin Trade Name Freq PRN Reason Stop Dose Admin Acetaminophen 650 mg 09/06/24 10:45 09/06/24 16:24 Acetaminophen 325 Mg Tablet PO 650 mg Q4HR PRN Administration Pain 1 to 4, or Fever Hydrocodone Bitart/Acetaminophen 1 tab 09/06/24 10:45 09/06/24 19:59 Hydrocod/Acetam 5/325 Mg Tablet PO 1 tab Q4HR PRN Administration Pain 5 to 7 Apixaban 5 mg 09/06/24 21:00 09/07/24 08:17 Apixaban 5 Mg Tablet PO 5 mg BID LENKA Administration Ceftriaxone Sodium 1 gm 09/07/24 09:00 09/07/24 08:17 Ceftriaxone 1 Gm Vial IVP 1 gm DAILY LENKA Administration Acetaminophen 1,000 mg in 100 mls @ 400 mls/hr 09/06/24 16:43 Acetaminophen IV Q6HR PRN FEVER > 100.5 F Levothyroxine Sodium 25 mcg 09/07/24 07:00 09/07/24 06:31 Levothyroxine 25 Mcg Tablet PO 25 mcg QDAC LENKA Administration Metoprolol Succinate 25 mg 09/07/24 09:00 Metoprolol Succinate 25 Mg Tablet PO DAILY LENKA Metoprolol Tartrate 5 mg 09/07/24 07:02 Metoprolol 5 Mg/5 Ml Vial IVP Q8HR PRN tachycardia HR >120 Pantoprazole Sodium 40 mg 09/07/24 07:00 09/07/24 06:54 Pantoprazole 40 Mg Tablet PO 40 mg QDAC LENKA Administration Sodium Chloride 10 ml 09/06/24 17:00 09/07/24 08:17 Sodium Chloride Flush 0.9% 10 Ml Syringe IVP 10 ml 0100,[id number],1700 LENKA Administration Sodium Chloride 10 ml 09/06/24 10:45 Sodium Chloride Flush 0.9% 10 Ml Syringe IVP PRN PRN NEEDED PER PROVIDER ORDERS Sterile Water 10 ml 09/07/24 09:00 09/07/24 08:17 Water For Injection,Sterile 10 Ml Vial MC 10 ml DAILY LENKA Administration Objective Vital Signs/Intake & Output Reviewed Vital Signs: Yes Vital Signs: Vital Signs x48h Temp Pulse Pulse Resp BP BP Pulse Ox 09/07/24 08:18 92 09/07/24 08:00 96.7 F L 83 25 H 121/78 91 L 09/07/24 07:00 78 17 100/69 95 09/07/24 06:30 91 H 124/80 09/07/24 06:00 86 20 124/80 96 09/07/24 05:00 90 23 120/77 94 09/07/24 04:29 09/07/24 04:00 97.7 F 93 H 20 131/77 H 96 09/07/24 03:00 80 16 121/84 96 09/07/24 02:00 78 27 H 120/83 95 09/07/24 01:00 78 18 119/71 95 O2 Flow Rate 09/07/24 08:18 4 09/07/24 08:00 6 09/07/24 07:00 6 09/07/24 06:30 09/07/24 06:00 09/07/24 05:00 6 09/07/24 04:29 6 09/07/24 04:00 6 09/07/24 03:00 6 09/07/24 02:00 6 09/07/24 01:00 6 Intake & Output: Intake & Output 09/05/24 09/06/24 09/07/24 09/08/24 05:59 05:59 05:59 05:59 Intake Total 3147 / 3147 550 / 550 Output Total 0 / 0 0 / 0 Balance 3147 / 3147 550 / 550 Weight (kg) 63.5 kg 65 kg Objective General Appearance: positive No acute distress and Alert; negative Anxious or Lethargic Eyes Bilateral: positive Normal inspection, PERRL and EOMI ENT: positive ENT inspection nml, Pharynx nml and No signs of dehydration Neck: positive Nml inspection, Thyroid nml and No JVD Respiratory: positive Chest non-tender, No respiratory distress and Breath sounds nml; negative Wheezes, Rales or Rhonchi Cardiovascular: positive No murmur and Irregularly irregular; negative Tachycardia Abdomen: positive Non-tender, No organomegaly, Nml bowel sounds and No distention; negative Tenderness, Guarding, Rebound or Hepatomegaly Back: positive Nml inspection; negative CVA tenderness (R) or CVA tenderness (L) Skin: positive Color nml and Skin rash (RLE - erythema in the right upper thigh, improving; erythema noted in calf as well, no fluctuence or purulence noted; LLE with open ulceration, no pus noted) Extremities: positive Non-tender, Full ROM, Nml appearance and No pedal edema; negative Calf tenderness Neurologic/Psychiatric: positive Oriented x3 and Mood/affect nml Lab Results 09/07/24 04:34 09/07/24 09:52 Other Labs: Lab Results x24hrs 09/07/24 09/07/24 09/07/24 Range/Units 07:51 04:34 00:55 WBC 31.3 H (4.8-10.8) x10^3/uL RBC 6.03 H (4.20-5.40) 10^6/uL Hgb 11.6 L (12.0-16.0) g/dL Hct 43.0 (37.0-47.0) % MCV 71.3 L (81.0-99.0) fL MCH 19.2 L (27.0-31.0) pg MCHC 27.0 L (32.0-36.0) g/dL RDW 23.4 H (12.0-15.0) % Plt Count 214 (130-450) 10^3/uL MPV 9.7 (7.9-10.8) fL VBG pH 7.377 (7.31-7.41) Ionized Calcium 0.98 L (1.15-1.33) mmol/L Sodium 142 (135-145) mmol/L Potassium 3.6 (3.5-4.5) mmol/L Chloride 110 (101-111) mmol/L Carbon Dioxide 21 (21-32) mmol/L Anion Gap 11.0 (6-13) BUN 31 H (6-20) mg/dL Creatinine 1.9 H (0.6-1.3) mg/dL Estimated GFR (MDRD) 25 L (>89) Glucose 111 H (74-104) mg/dL Lactic Acid 2.1 2.1 2.0 (0.5-2.2) mmol/L Calcium 8.6 (8.5-10.3) mg/dL Phosphorus 4.3 (2.5-5.0) mg/dL Magnesium 2.2 (1.7-2.3) mg/dL Nasal Screen MRSA (PCR) (NEGATIVE) 09/06/24 09/06/24 09/06/24 Range/Units 21:21 18:05 15:05 WBC (4.8-10.8) x10^3/uL RBC (4.20-5.40) 10^6/uL Hgb (12.0-16.0) g/dL Hct (37.0-47.0) % MCV (81.0-99.0) fL MCH (27.0-31.0) pg MCHC (32.0-36.0) g/dL RDW (12.0-15.0) % Plt Count (130-450) 10^3/uL MPV (7.9-10.8) fL VBG pH 7.450 H (7.31-7.41) Ionized Calcium 0.91 L (1.15-1.33) mmol/L Sodium (135-145) mmol/L Potassium 3.0 L (3.5-4.5) mmol/L Chloride (101-111) mmol/L Carbon Dioxide (21-32) mmol/L Anion Gap (6-13) BUN (6-20) mg/dL Creatinine (0.6-1.3) mg/dL Estimated GFR (MDRD) (>89) Glucose (74-104) mg/dL Lactic Acid 3.0 H* 3.4 H* 4.6 H* (0.5-2.2) mmol/L Calcium (8.5-10.3) mg/dL Phosphorus 4.1 (2.5-5.0) mg/dL Magnesium 1.6 L (1.7-2.3) mg/dL Nasal Screen MRSA (PCR) (NEGATIVE) 09/06/24 09/06/24 09/06/24 Range/Units 13:22 10:30 10:10 WBC (4.8-10.8) x10^3/uL RBC (4.20-5.40) 10^6/uL Hgb (12.0-16.0) g/dL Hct (37.0-47.0) % MCV (81.0-99.0) fL MCH (27.0-31.0) pg MCHC (32.0-36.0) g/dL RDW (12.0-15.0) % Plt Count (130-450) 10^3/uL MPV (7.9-10.8) fL VBG pH (7.31-7.41) Ionized Calcium (1.15-1.33) mmol/L Sodium (135-145) mmol/L Potassium (3.5-4.5) mmol/L Chloride (101-111) mmol/L Carbon Dioxide (21-32) mmol/L Anion Gap (6-13) BUN (6-20) mg/dL Creatinine (0.6-1.3) mg/dL Estimated GFR (MDRD) (>89) Glucose (74-104) mg/dL Lactic Acid 5.2 H* 4.7 H* (0.5-2.2) mmol/L Calcium (8.5-10.3) mg/dL Phosphorus (2.5-5.0) mg/dL Magnesium (1.7-2.3) mg/dL Nasal Screen MRSA (PCR) NEGATIVE (NEGATIVE) Diagnostic Imaging Diagnostic Imaging Results: positive Final report reviewed Sepsis Event Note (H) Evaluation Current Stage of Sepsis: Severe sepsis Possible source of Sepsis: positive Pulmonary, Genitourinary and Skin/soft tissue Sepsis Criteria Sepsis Criteria: Recorded Temperature greater than 38.3C or Less than 36C, Recorded Heart Rate greater than 90 bpm and WBC count greater than 12,000 or less than 4000 Assessment/Plan Problem List (1) Bacteremia due to group B Streptococcus: Impression: Patient with blood cultures 2/2 positive for group B streptococcus. Susceptibilities pending. Continue Rocephin. Vancomycin discontinued. Patient has right lower extremity squamous cell carcinoma and there is erythema currently surrounding the area, she also had a cancer in her left lower extremity that was excised. This is likely the source of the sepsis (versus genitourinary source). Afebrile overnight, but leukocytosis continues to increase. Continue to trend. Continue gentle IV fluid rehydration with boluses in setting of heart failure. (2) Sepsis: Impression: See above. Qualifiers: Sepsis acute organ dysfunction status: unspecified Sepsis type: sepsis due to unspecified organism Qualified Code(s): A41.9 - Sepsis, unspecified organism (3) Pneumonia: Impression: Chest x-ray shows possible right lower lobe consolidation. Continue Rocephin. Qualifiers: Laterality: right Lung location: lower lobe of lung Pneumonia type: d ue to unspecified organism Qualified Code(s): J18.9 - Pneumonia, unspecified organism (4) Atrial fibrillation with RVR: Impression: Patient was given 2 pushes of IV diltiazem, and started on a IV drip. This has been down titrated since being admitted to the ICU, and is now off. Has history of diastolic heart failure so will try to avoid CCB. Started on oral metopolol this morning. Will continue her Eliquis. (5) Altered mental status: Impression: Resolved. Qualifiers: Altered mental status type: unspecified Qualified Code(s): R41.82 - Altered mental status, unspecified (6) Acute kidney injury: Impression: Likely ATN due to hemodynamic changes. Continue gentle IVF rehdyration. PVR ~100, decreased urine output overnight as well. Not retaining at this time. (7) Lactic acidosis: Impression: Resolved. Secondary to hypoperfusion due to above. (8) Non-pressure chronic ulcer of other part of left lower leg with fat layer exposed: Impression: Continue localized wound care, continue to monitor. (9) Hypothyroidism (acquired): Impression: Continue levothyroxine 25 mcg as per home dose. (10) Diastolic heart failure: Impression: Hold home Lasix. Patient appears dehydrated at this time. Gentle IVF rehydration with small boluses. Qualifiers: Heart failure chronicity: unspecified Qualified Code(s): I50.30 - Unspecified diastolic (congestive) heart failure
[2024-09-07] MEDS ORDERED: METOPROLOL SUCCINATE 25 MG TABLET PO SCH (09:00)
[2024-09-07] MEDS ORDERED: VANCOMYCIN INJ 1 GM in SODIUM CHLORIDE 0.9% 250 ML IV SCH (09:00)
[2024-09-07] MEDS: METOPROLOL SUCCINATE 50 MG TABLET PO SCH (09:27)
[2024-09-07] MEDS: LACTATED RINGERS 500 ML IV ONE (09:42)
[2024-09-07 10:07] LABS: CALCIUM, IONIZED 0.96 mmol/L (1.15-1.33); VBG PH 7.358 (7.31-7.41)
[2024-09-07] MEDS: METOPROLOL SUCCINATE 25 MG TABLET PO SCH (10:39)
[2024-09-07 11:43] LABS: LACTIC ACID, VENOUS 4.5 mmol/L (0.5-2.2)
[2024-09-07] MEDS: SODIUM CHLORIDE 0.9% 500 ML IV ONE (11:56)
[2024-09-07] MEDS: PRENATAL VITAMIN TABLET PO SCH (12:00)
[2024-09-07 14:43] LABS: LACTIC ACID, VENOUS 4.5 mmol/L (0.5-2.2)
[2024-09-07 15:15] LABS: CALCIUM, IONIZED 1.24 mmol/L (1.15-1.33); VBG PH 7.364 (7.31-7.41)
[2024-09-07] MEDS ORDERED: ONDANSETRON ODT 4 MG TABLET TL PRN (17:43)
[2024-09-07] MEDS: ONDANSETRON 4 MG/2 ML VIAL IVP PRN (17:50)
[2024-09-07 18:41] LABS: LACTIC ACID, VENOUS 3.9 mmol/L (0.5-2.2)
[2024-09-07] MEDS: APIXABAN 2.5 MG TABLET PO SCH (20:51)
[2024-09-07 22:13] LABS: LACTIC ACID, VENOUS 4.2 mmol/L (0.5-2.2)
[2024-09-07] MEDS: PROCHLORPERAZINE 10 MG/2 ML VIAL IVP PRN (23:07)
[2024-09-08 01:35] LABS: LACTIC ACID, VENOUS 3.6 mmol/L (0.5-2.2)
[2024-09-08 05:35] LABS: HCT - HEMATOCRIT 36.3 % (37.0-47.0); HGB - HEMOGLOBIN 9.6 g/dL (12.0-16.0); MEAN CORPUSCULAR HEMOGLOBIN 19.1 pg (27.0-31.0); MEAN CORPUSCULAR HGB CONC 26.4 g/dL (32.0-36.0); MEAN CORPUSCULAR VOLUME 72.3 fL (81.0-99.0); MEAN PLATELET VOLUME 9.6 fL (7.9-10.8); RED BLOOD COUNT 5.02 10^6/uL (4.20-5.40); RED CELL DISTRIBUTION WIDTH 22.5 % (12.0-15.0); WHITE BLOOD COUNT 24.1 x10^3/uL (4.8-10.8)
[2024-09-08 05:52] LABS: CALCIUM 9.5 mg/dL (8.5-10.3); CREATININE 2.4 mg/dL (0.6-1.3); MAGNESIUM 2.2 mg/dL (1.7-2.3); POTASSIUM 4.2 mmol/L (3.5-4.5)
[2024-09-08 05:54] LABS: CALCIUM, IONIZED 1.13 mmol/L (1.15-1.33); VBG PH 7.273 (7.31-7.41)
[2024-09-08 05:59] LABS: LACTIC ACID, VENOUS 3.7 mmol/L (0.5-2.2)
[2024-09-08] MEDS: LACTATED RINGERS 1,000 ML IV SCH (07:53)
--- NOTE | 2024-09-08 08:19 | PROVIDER PROGRESS NOTE ---
Subjective Subjective Subjective: Patient was confused overnight; she did not get much sleep. This morning, she does not know where she is, and is confused about why she's in the hospital but is reorientable and redirectable. She is alert and oriented x 1. She denies any fevers, chills. She has a mild cough. She is not eating or drinking much, but is open to trying. Current Medications Current Medications Current Medications: Current Medications Generic Name Dose Route Start Last Admin Trade Name Freq PRN Reason Stop Dose Admin Acetaminophen 650 mg 09/06/24 10:45 09/06/24 16:24 Acetaminophen 325 Mg Tablet PO 650 mg Q4HR PRN Administration Pain 1 to 4, or Fever Hydrocodone Bitart/Acetaminophen 1 tab 09/06/24 10:45 09/06/24 19:59 Hydrocod/Acetam 5/325 Mg Tablet PO 1 tab Q4HR PRN Administration Pain 5 to 7 Apixaban 2.5 mg 09/07/24 21:00 09/07/24 20:51 Apixaban 2.5 Mg Tablet PO 2.5 mg BID LENKA Administration Bacitracin 1 packet 09/08/24 08:01 Bacitracin Zinc Oint 1 Packet TOP PRN PRN Skin Care Calamine 1 applic 09/08/24 08:01 Calamine/Zinc Oxide 177 Ml Bottle TOP PRN PRN SKIN CARE Ceftriaxone Sodium 1 gm 09/07/24 09:00 09/07/24 08:17 Ceftriaxone 1 Gm Vial IVP 1 gm DAILY LENKA Administration Acetaminophen 1,000 mg in 100 mls @ 400 mls/hr 09/06/24 16:43 Acetaminophen IV Q6HR PRN FEVER > 100.5 F Lactated Ringer's 1,000 mls @ 75 mls/hr 09/08/24 08:00 09/08/24 07:53 Lr IV 75 mls/hr .[id number] LENKA Administration Levothyroxine Sodium 25 mcg 09/07/24 07:00 09/08/24 06:34 Levothyroxine 25 Mcg Tablet PO 25 mcg QDAC LENKA Administration Metoprolol Succinate 25 mg 09/07/24 09:00 09/07/24 10:39 Metoprolol Succinate 25 Mg Tablet PO 25 mg DAILY LENKA Administration Metoprolol Tartrate 5 mg 09/07/24 07:02 Metoprolol 5 Mg/5 Ml Vial IVP Q8HR PRN tachycardia HR >120 Ondansetron HCl 4 mg 09/07/24 17:43 09/08/24 01:06 Ondansetron 4 Mg/2 Ml Vial IVP 4 mg Q4HR PRN Administration Nausea / Vomiting Ondansetron HCl 4 mg 09/07/24 17:43 Ondansetron Odt 4 Mg Tablet TL Q4HR PRN Nausea / Vomiting Pantoprazole Sodium 40 mg 09/07/24 07:00 09/08/24 06:34 Pantoprazole 40 Mg Tablet PO 40 mg QDAC LENKA Administration Multivit/Folic Acid/Iron 1 tab 09/07/24 12:00 09/07/24 12:00 Vitamin Tablet PO 1 tab [id number] LENKA Administration Prochlorperazine Edisylate 10 mg 09/07/24 22:38 09/07/24 23:07 Prochlorperazine 10 Mg/2 Ml Vial IVP 10 mg Q6HR PRN Administration Nausea / Vomiting Sodium Chloride 10 ml 09/06/24 17:00 09/08/24 01:06 Sodium Chloride Flush 0.9% 10 Ml Syringe IVP 10 ml 0100,0900,1700 LENKA Administration Sodium Chloride 10 ml 09/06/24 10:45 Sodium Chloride Flush 0.9% 10 Ml Syringe IVP PRN PRN NEEDED PER PROVIDER ORDERS Sterile Water 10 ml 09/07/24 09:00 09/07/24 08:17 Water For Injection,Sterile 10 Ml Vial MC 10 ml DAILY LEKNA Administration Objective Vital Signs/Intake & Output Reviewed Vital Signs: Yes Vital Signs: Vital Signs x48h Temp Pulse Resp BP Pulse Ox O2 Flow Rate 09/08/24 08:00 97.9 F 72 20 96 4 09/08/24 07:00 82 21 97/70 94 09/08/24 06:00 86 14 99/61 94 4 09/08/24 05:00 86 17 91/61 94 4 09/08/24 04:00 91 H 16 102/65 94 4 09/08/24 03:00 95 H 28 H 83/62 L 94 4 09/08/24 02:00 89 18 98/63 94 4 09/08/24 01:00 73 16 89/65 L 100 4 Intake & Output: Intake & Output 09/06/24 09/07/24 09/08/24 12/08/24 05:59 05:59 05:59 05:59 Intake Total 3269 / 0 3319 / 3319 120 / 120 Output Total 0 / 0 75 / 75 0 / 0 Balance 3269 3244 / 3244 120 / 120 Weight (kg) 63.5 kg 65 kg 66 kg Objective General Appearance: positive No acute distress and Alert; negative Anxious or Lethargic Eyes Bilateral: positive Normal inspection, PERRL and EOMI ENT: positive ENT inspection nml, Pharynx nml and No signs of dehydration Neck: positive Nml inspection, Thyroid nml and No JVD Respiratory: positive Chest non-tender, No respiratory distress, Breath sounds nml, Wheezes (expiratory, BERNARDA) and Rales (bibasilar); negative Rhonchi Cardiovascular: positive No murmur and Irregularly irregular; negative Tachycardia Abdomen: positive Non-tender, No organomegaly, Nml bowel sounds and No distention; negative Tenderness, Guarding, Rebound or Hepatomegaly Back: positive Nml inspection; negative CVA tenderness (R) or CVA tenderness (L) Skin: positive Color nml and Skin rash (RLE - erythema in the right upper thigh, improving; erythema noted in calf as well, no fluctuence or purulence noted; LLE with open ulceration, no pus noted) Extremities: positive Non-tender, Full ROM, Nml appearance and No pedal edema; negative Calf tenderness Neurologic/Psychiatric: positive Oriented x3 and Mood/affect nml Lab Results 09/08/24 05:26 09/08/24 05:26 Other Labs: Lab Results x24hrs 09/08/24 09/08/24 09/08/24 Range/Units 05:26 05:14 01:02 WBC 24.1 H (4.8-10.8) x10^3/uL RBC 5.02 (4.20-5.40) 10^6/uL Hgb 9.6 L (12.0-16.0) g/dL Hct 36.3 L (37.0-47.0) % MCV 72.3 L (81.0-99.0) fL MCH 19.1 L (27.0-31.0) pg MCHC 26.4 L (32.0-36.0) g/dL RDW 22.5 H (12.0-15.0) % Plt Count 209 (130-450) 10^3/uL MPV 9.6 (7.9-10.8) fL VBG pH 7.273 L (7.31-7.41) Ionized Calcium 1.13 L (1.15-1.33) mmol/L Sodium 142 (135-145) mmol/L Potassium 4.2 (3.5-4.5) mmol/L Chloride 108 (101-111) mmol/L Carbon Dioxide 22 (21-32) mmol/L Anion Gap 12.0 (6-13) BUN 41 H (6-20) mg/dL Creatinine 2.4 H (0.6-1.3) mg/dL Estimated GFR (MDRD) 19 L (>89) Glucose 109 H (74-104) mg/dL Lactic Acid 3.7 H* 3.6 H* (0.5-2.2) mmol/L Calcium 9.5 (8.5-10.3) mg/dL Phosphorus 5.0 (2.5-5.0) mg/dL Magnesium 2.2 (1.7-2.3) mg/dL 09/07/24 09/07/24 09/07/24 Range/Units 21:36 18:15 15:06 WBC (4.8-10.8) x10^3/uL RBC (4.20-5.40) 10^6/uL Hgb (12.0-16.0) g/dL Hct (37.0-47.0) % MCV (81.0-99.0) fL MCH (27.0-31.0) pg MCHC (32.0-36.0) g/dL RDW (12.0-15.0) % Plt Count (130-450) 10^3/uL MPV (7.9-10.8) fL VBG pH 7.364 (7.31-7.41) Ionized Calcium 1.24 (1.15-1.33) mmol/L Sodium (135-145) mmol/L Potassium 4.0 (3.5-4.5) mmol/L Chloride (101-111) mmol/L Carbon Dioxide (21-32) mmol/L Anion Gap (6-13) BUN (6-20) mg/dL Creatinine (0.6-1.3) mg/dL Estimated GFR (MDRD) (>89) Glucose (74-104) mg/dL Lactic Acid 4.2 H* 3.9 H* (0.5-2.2) mmol/L Calcium (8.5-10.3) mg/dL Phosphorus (2.5-5.0) mg/dL Magnesium (1.7-2.3) mg/dL 09/07/24 09/07/24 09/07/24 Range/Units 14:20 11:04 09:52 WBC (4.8-10.8) x10^3/uL RBC (4.20-5.40) 10^6/uL Hgb (12.0-16.0) g/dL Hct (37.0-47.0) % MCV (81.0-99.0) fL MCH (27.0-31.0) pg MCHC (32.0-36.0) g/dL RDW (12.0-15.0) % Plt Count (130-450) 10^3/uL MPV (7.9-10.8) fL VBG pH 7.358 (7.31-7.41) Ionized Calcium 0.96 L (1.15-1.33) mmol/L Sodium (135-145) mmol/L Potassium 3.6 (3.5-4.5) mmol/L Chloride (101-111) mmol/L Carbon Dioxide (21-32) mmol/L Anion Gap (6-13) BUN (6-20) mg/dL Creatinine (0.6-1.3) mg/dL Estimated GFR (MDRD) (>89) Glucose (74-104) mg/dL Lactic Acid 4.5 H* 4.5 H* (0.5-2.2) mmol/L Calcium (8.5-10.3) mg/dL Phosphorus (2.5-5.0) mg/dL Magnesium (1.7-2.3) mg/dL Diagnostic Imaging Diagnostic Imaging Results: positive Final report reviewed Sepsis Event Note (H) Evaluation Current Stage of Sepsis: Severe sepsis Possible source of Sepsis: positive Pulmonary, Genitourinary and Skin/soft tissue Sepsis Criteria Sepsis Criteria: Recorded Temperature greater than 38.3C or Less than 36C, Recorded Heart Rate greater than 90 bpm and WBC count greater than 12,000 or less than 4000 Assessment/Plan Problem List (1) Bacteremia due to group B Streptococcus: Impression: Patient with blood cultures 2/2 positive for group B streptococcus. Susceptibilities pending. Continue Rocephin. MRSA swab negative; vancomycin discontinued. Patient has right lower extremity squamous cell carcinoma and there is erythema currently surrounding the area, she also had a cancer in her left lower extremity that was excised. This is likely the source of the sepsis (versus genitourinary source). Afebrile overnight, leukocytosis improving. Continue to trend. Continue gentle IV fluid rehydration as patient with decreased P.O. intake, monitor respiratory status closely. (2) Sepsis: Impression: See above. Qualifiers: Sepsis acute organ dysfunction status: unspecified Sepsis type: sepsis due to unspecified organism Qualified Code(s): A41.9 - Sepsis, unspecified organism (3) Pneumonia: Impression: Chest x-ray shows possible right lower lobe consolidation. Continue Rocephin. Qualifiers: Pneumonia type: due to unspecified organism Laterality: right Lung location: lower lobe of lung Qualified Code(s): J18.9 - Pneumonia, unspecified organism (4) Atrial fibrillation with RVR: Impression: Patient was given 2 pushes of IV diltiazem, and started on a IV drip. This has been down titrated since being admitted to the ICU, and is now off. Has history of diastolic heart failure so will try to avoid CCB. Started on oral metopolol with good control of heart rate. Will continue her Eliquis. (5) Altered mental status: Impression: Resolved. Qualifiers: Altered mental status type: unspecified Qualified Code(s): R41.82 - Altered mental status, unspecified (6) Acute kidney injury: Impression: Likely ATN due to hemodynamic changes. Continue gentle IVF rehdyration. PVR ~100, decreased urine output overnight as well. Not retaining at this time. (7) Lactic acidosis: Impression: Resolving. Secondary to hypoperfusion due to above. (8) Non-pressure chronic ulcer of other part of left lower leg with fat layer exposed: Impression: Continue localized wound care, continue to monitor. (9) Hypothyroidism (acquired): Impression: Continue levothyroxine 25 mcg as per home dose. (10) Diastolic heart failure: Impression: Hold home Lasix. Patient appears dehydrated at this time. Gentle IVF rehydration with small boluses. Qualifiers: Heart failure chronicity: unspecified Qualified Code(s): I50.30 - Unspecified diastolic (congestive) heart failure
[2024-09-08] MEDS: CALAMINE/ZINC OXIDE 177 ML BOTTLE TOP PRN (08:35)
[2024-09-08] MEDS: BACITRACIN ZINC OINT 1 PACKET TOP PRN (08:35)
[2024-09-08 12:41] LABS: LACTIC ACID, VENOUS 2.4 mmol/L (0.5-2.2)
[2024-09-08] MEDS: IPRATROPIUM/ALBUTEROL 3 ML NEB INH PRN (17:41)
[2024-09-08] MEDS: ZOLPIDEM 5 MG TABLET PO PRN (23:14)
[2024-09-09 05:13] LABS: HCT - HEMATOCRIT 37.7 % (37.0-47.0); HGB - HEMOGLOBIN 9.8 g/dL (12.0-16.0); MEAN CORPUSCULAR HEMOGLOBIN 18.9 pg (27.0-31.0); MEAN CORPUSCULAR VOLUME 72.6 fL (81.0-99.0); PLT - PLATELET COUNT 170 10^3/uL (130-450); RED BLOOD COUNT 5.19 10^6/uL (4.20-5.40); RED CELL DISTRIBUTION WIDTH 22.5 % (12.0-15.0); WHITE BLOOD COUNT 10.6 x10^3/uL (4.8-10.8)
[2024-09-09 05:17] LABS: CALCIUM, IONIZED 1.17 mmol/L (1.15-1.33); VBG PH 7.276 (7.31-7.41)
[2024-09-09 05:31] LABS: CALCIUM 9.4 mg/dL (8.5-10.3); CREATININE 2.4 mg/dL (0.6-1.3); MAGNESIUM 2.3 mg/dL (1.7-2.3); POTASSIUM 4.3 mmol/L (3.5-4.5)
[2024-09-09] MEDS: LACTATED RINGERS 500 ML IV ONE ×2 (08:44→14:44)
--- NOTE | 2024-09-09 09:05 | PROVIDER PROGRESS NOTE ---
Subjective Subjective Subjective: Patient is once again confused this morning; she did not get much sleep. This morning, she does not know where she is, and is confused about why she's in the hospital but is reorientable and redirectable. She is alert and oriented x 1-2. She denies any fevers, chills. She has a mild cough. Her son and daughter were here last night and were able to feed her. She is eating and drinking better. Overnight, she put out 250 cc of urine. She also had a large bowel movement. She appears tired this morning. Current Medications Current Medications Current Medications: Current Medications Generic Name Dose Route Start Last Admin Trade Name Freq PRN Reason Stop Dose Admin Acetaminophen 650 mg 09/06/24 10:45 09/06/24 16:24 Acetaminophen 325 Mg Tablet PO 650 mg Q4HR PRN Administration Pain 1 to 4, or Fever Hydrocodone Bitart/Acetaminophen 1 tab 09/06/24 10:45 09/08/24 21:54 Hydrocod/Acetam 5/325 Mg Tablet PO 1 tab Q4HR PRN Administration Pain 5 to 7 Albuterol/Ipratropium 3 ml 09/08/24 08:34 09/08/24 17:41 Ipratropium/Albuterol 3 Ml Neb INH 3 ml RTQID PRN Administration Shortness of Air/Wheezing Apixaban 2.5 mg 09/07/24 21:00 09/09/24 08:34 Apixaban 2.5 Mg Tablet PO 2.5 mg BID LENKA Administration Bacitracin 1 packet 09/08/24 08:01 09/08/24 08:35 Bacitracin Zinc Oint 1 Packet TOP 1 packet PRN PRN Administration Skin Care Calamine 1 applic 09/08/24 08:01 09/08/24 08:35 Calamine/Zinc Oxide 177 Ml Bottle TOP 1 applic PRN PRN Administration SKIN CARE Ceftriaxone Sodium 1 gm 09/07/24 09:00 09/09/24 08:34 Ceftriaxone 1 Gm Vial IVP 1 gm DAILY LENKA Administration Acetaminophen 1,000 mg in 100 mls @ 400 mls/hr 09/06/24 16:43 Acetaminophen IV Q6HR PRN FEVER > 100.5 F Lactated Ringer's 1,000 mls @ 75 mls/hr 09/08/24 08:00 09/08/24 21:11 Lr IV 75 mls/hr .[id number] LENKA Administration Lactated Ringer's 500 mls @ 999 mls/hr 09/09/24 08:40 09/09/24 08:44 Lr IV 09/09/24 09:10 999 mls/hr ONCE ONE Administration Levothyroxine Sodium 25 mcg 09/07/24 07:00 09/09/24 06:00 Levothyroxine 25 Mcg Tablet PO 25 mcg QDAC LENKA Administration Metoprolol Succinate 25 mg 09/07/24 09:00 09/09/24 08:34 Metoprolol Succinate 25 Mg Tablet PO 25 mg DAILY LENKA Administration Metoprolol Tartrate 5 mg 09/07/24 07:02 Metoprolol 5 Mg/5 Ml Vial IVP Q8HR PRN tachycardia HR >120 Ondansetron HCl 4 mg 09/07/24 17:43 09/08/24 20:03 Ondansetron 4 Mg/2 Ml Vial IVP 4 mg Q4HR PRN Administration Nausea / Vomiting Ondansetron HCl 4 mg 09/07/24 17:43 Ondansetron Odt 4 Mg Tablet TL Q4HR PRN Nausea / Vomiting Pantoprazole Sodium 40 mg 09/07/24 07:00 09/09/24 06:00 Pantoprazole 40 Mg Tablet PO 40 mg QDAC LENKA Administration Multivit/Folic Acid/Iron 1 tab 09/07/24 12:00 09/08/24 12:13 Vitamin Tablet PO 1 tab [id number] LENKA Administration Prochlorperazine Edisylate 10 mg 09/07/24 22:38 09/07/24 23:07 Prochlorperazine 10 Mg/2 Ml Vial IVP 10 mg Q6HR PRN Administration Nausea / Vomiting Sodium Chloride 10 ml 09/06/24 17:00 09/09/24 08:39 Sodium Chloride Flush 0.9% 10 Ml Syringe IVP 10 ml 0100,[id number],1700 LENKA Administration Sodium Chloride 10 ml 09/06/24 10:45 Sodium Chloride Flush 0.9% 10 Ml Syringe IVP PRN PRN NEEDED PER PROVIDER ORDERS Sterile Water 10 ml 09/07/24 09:00 09/09/24 08:34 Water For Injection,Sterile 10 Ml Vial MC 10 ml DAILY LENKA Administration Zolpidem Tartrate 5 mg 09/08/24 17:15 09/08/24 23:14 Zolpidem 5 Mg Tablet PO 5 mg QPM PRN Administration Insomnia Objective Vital Signs/Intake & Output Reviewed Vital Signs: Yes Vital Signs: Vital Signs x48h Temp Pulse Resp BP Pulse Ox O2 Flow Rate 09/09/24 08:00 97.5 F L 92 H 19 95/69 99 3 09/09/24 07:00 90 20 105/71 94 4 09/09/24 06:00 97.7 F 101 H 13 98/67 95 4 09/09/24 05:00 110 H 19 95/66 97 4 09/09/24 04:00 100 H 15 91/71 94 4 09/09/24 03:00 106 H 18 92/72 94 4 09/09/24 02:00 99 H 20 109/84 93 4 Intake & Output: Intake & Output 09/07/24 09/08/24 09/09/24 09/10/24 05:59 05:59 05:59 05:59 Intake Total 3270 / 3270 3319 / 3319 1418 / 1418 120 / 120 Output Total 0 / 0 75 / 75 250 / 250 0 / 0 Balance 3270 / 3270 3244 / 3244 1168 / 1168 120 / 120 Weight (kg) 63.5 kg 65 kg 66 kg 69 kg Objective General Appearance: positive No acute distress and Alert; negative Anxious or Lethargic Eyes Bilateral: positive Normal inspection, PERRL and EOMI ENT: positive ENT inspection nml, Pharynx nml and No signs of dehydration Neck: positive Nml inspection, Thyroid nml and No JVD Respiratory: positive Chest non-tender, No respiratory distress, Breath sounds nml, Wheezes (expiratory, BERNARDA) and Rales (bibasilar); negative Rhonchi Cardiovascular: positive No murmur and Irregularly irregular; negative Tachycardia Abdomen: positive Non-tender, No organomegaly, Nml bowel sounds and No distention; negative Tenderness, Guarding, Rebound or Hepatomegaly Back: positive Nml inspection; negative CVA tenderness (R) or CVA tenderness (L) Skin: positive Color nml and Skin rash (RLE - erythema in the right upper thigh, improving; erythema noted in calf as well, no fluctuence or purulence noted; LLE with open ulceration, no pus noted) Extremities: positive Non-tender, Full ROM, Nml appearance and No pedal edema; negative Calf tenderness Neurologic/Psychiatric: positive Oriented x3 and Mood/affect nml Lab Results 09/09/24 04:53 09/09/24 04:53 Other Labs: Lab Results x24hrs 09/09/24 09/08/24 09/08/24 Range/Units 04:53 12:13 08:42 WBC 10.6 (4.8-10.8) x10^3/uL RBC 5.19 (4.20-5.40) 10^6/uL Hgb 9.8 L (12.0-16.0) g/dL Hct 37.7 (37.0-47.0) % MCV 72.6 L (81.0-99.0) fL MCH 18.9 L (27.0-31.0) pg MCHC 26.0 L (32.0-36.0) g/dL RDW 22.5 H (12.0-15.0) % Plt Count 170 (130-450) 10^3/uL VBG pH 7.276 L (7.31-7.41) Ionized Calcium 1.17 (1.15-1.33) mmol/L Sodium 140 (135-145) mmol/L Potassium 4.3 (3.5-4.5) mmol/L Chloride 108 (101-111) mmol/L Carbon Dioxide 20 L (21-32) mmol/L Anion Gap 12.0 (6-13) BUN 49 H (6-20) mg/dL Creatinine 2.4 H (0.6-1.3) mg/dL Estimated GFR (MDRD) 19 L (>89) Glucose 95 (74-104) mg/dL Lactic Acid 2.4 H 2.0 (0.5-2.2) mmol/L Calcium 9.4 (8.5-10.3) mg/dL Phosphorus 4.6 (2.5-5.0) mg/dL Magnesium 2.3 (1.7-2.3) mg/dL Diagnostic Imaging Diagnostic Imaging Results: positive Final report reviewed Sepsis Event Note (H) Evaluation Current Stage of Sepsis: Severe sepsis Possible source of Sepsis: positive Pulmonary, Genitourinary and Skin/soft tissue Sepsis Criteria Sepsis Criteria: Recorded Temperature greater than 38.3C or Less than 36C, Recorded Heart Rate greater than 90 bpm and WBC count greater than 12,000 or less than 4000 Assessment/Plan Problem List (1) Bacteremia due to group B Streptococcus: Impression: Patient with blood cultures 2/2 positive for group B streptococcus. Continue Rocephin. MRSA swab negative; vancomycin discontinued. Patient has right lower extremity squamous cell carcinoma and there is erythema currently surrounding the area, she also had a cancer in her left lower extremity that was excised. This is likely the source of the sepsis (versus genitourinary source). Afebrile, leukocytosis resolved. Continue to trend. Continue gentle IV fluid rehydration as patient with decreased P.O. intake, monitor respiratory status closely. (2) Altered mental status: Impression: Due to now delirium due to extended hospital stay. Home Ambien started to ensure patient gets rest overnight. Qualifiers: Altered mental status type: unspecified Qualified Code(s): R41.82 - Altered mental status, unspecified (3) Sepsis: Impression: See above. Qualifiers: Sepsis acute organ dysfunction status: unspecified Sepsis type: sepsis due to unspecified organism Qualified Code(s): A41.9 - Sepsis, unspecified organism (4) Pneumonia: Impression: Chest x-ray shows possible right lower lobe consolidation. Continue Rocephin. Qualifiers: Laterality: right Lung location: lower lobe of lung Pneumonia type: d ue to unspecified organism Qualified Code(s): J18.9 - Pneumonia, unspecified organism (5) Atrial fibrillation with RVR: Impression: Patient was given 2 pushes of IV diltiazem, and started on a IV drip. This has been down titrated since being admitted to the ICU, and is now off. Has history of diastolic heart failure so will try to avoid CCB. Started on oral metopolol with good control of heart rate. Will continue her Eliquis. (6) Acute kidney injury: Impression: Likely ATN due to hemodynamic changes. Stable creatinibe. Continue gentle IVF rehdyration, bolus. PVR ~100, decreased urine output overnight as well. Not retaining at this time. (7) Lactic acidosis: Impression: Resolved. Secondary to hypoperfusion due to above. (8) Non-pressure chronic ulcer of other part of left lower leg with fat layer exposed: Impression: Continue localized wound care, continue to monitor. (9) Hypothyroidism (acquired): Impression: Continue levothyroxine 25 mcg as per home dose. (10) Diastolic heart failure: Impression: Hold home Lasix. Patient appears dehydrated at this time. Gentle IVF rehydration with small boluses. Qualifiers: Heart failure chronicity: unspecified Qualified Code(s): I50.30 - Unspecified diastolic (congestive) heart failure
[2024-09-09] MEDS ORDERED: haloperidoL 1 MG TABLET PO SCH (18:00)
[2024-09-09] MEDS: HALOPERIDOL 5 MG/ML VIAL IVP STA (18:43)
[2024-09-09] MEDS ORDERED: LORazepam 2 MG/ML VIAL ONE (18:53)
[2024-09-09] MEDS: LORazepam 2 MG/ML VIAL IVP PRN (18:55)
[2024-09-09] MEDS ORDERED: LORazepam 2 MG/ML VIAL IVP SCH (19:02)
[2024-09-09] MEDS ORDERED: HALOPERIDOL 5 MG/ML VIAL IVP PRN (19:02)
[2024-09-09] MEDS ORDERED: MIDODRINE 10 MG TABLET PO PRN (23:43)
[2024-09-09] MEDS: SODIUM CHLORIDE 0.9% 500 ML IV ONE (23:54)
[2024-09-10] MEDS: NOREPINEPHRINE/0.9 % NS 8 MG/250 ML BAG IV SCH (01:03)
[2024-09-10 05:59] LABS: HCT - HEMATOCRIT 40.9 % (37.0-47.0); HGB - HEMOGLOBIN 10.2 g/dL (12.0-16.0); MEAN CORPUSCULAR HGB CONC 24.9 g/dL (32.0-36.0); MEAN CORPUSCULAR VOLUME 76.3 fL (81.0-99.0); PLT - PLATELET COUNT 175 10^3/uL (130-450); RED BLOOD COUNT 5.36 10^6/uL (4.20-5.40); RED CELL DISTRIBUTION WIDTH 22.7 % (12.0-15.0); WHITE BLOOD COUNT 13.6 x10^3/uL (4.8-10.8)
[2024-09-10 06:04] LABS: CALCIUM, IONIZED 1.1 mmol/L (1.15-1.33)
[2024-09-10 06:06] LABS: VBG PH 7.082 (7.31-7.41)
[2024-09-10 06:30] LABS: MAGNESIUM 2.4 mg/dL (1.7-2.3)
[2024-09-10 06:41] LABS: CALCIUM 9.7 mg/dL (8.5-10.3); CREATININE 2.8 mg/dL (0.6-1.3); POTASSIUM 5.2 mmol/L (3.5-4.5)
[2024-09-10] MEDS: PANTOPRAZOLE 40 MG VIAL IVP SCH (08:11)
[2024-09-10] MEDS: SODIUM BICARBONATE ABBOJECT 50 MEQ/50 ML SYRINGE IVP ONE (08:34)
[2024-09-10] MEDS: DEXTROSE 50% ABBOJECT 25 GM/50 ML SYRINGE IVP ONE (08:34)
[2024-09-10 08:35] LABS: HCT - HEMATOCRIT 38.9 % (37.0-47.0); HGB - HEMOGLOBIN 9.8 g/dL (12.0-16.0)
[2024-09-10] MEDS: INSULIN REGULAR, HUMAN 300 UNIT/3 ML PEN IVP ONE ×2 (08:48→11:18)
[2024-09-10 09:33] VITALS: O2SAT 89
[2024-09-10] MEDS ORDERED: LORazepam 2 MG/ML VIAL SUBQ PRN (10:01)
[2024-09-10] MEDS: MORPHINE 2 MG/ML CARPUJECT IVP PRN (10:10)
--- NOTE | 2024-09-10 10:36 | PROVIDER PROGRESS NOTE ---
Subjective Subjective Subjective: Overnight, patient worsened. Her blood pressure decreased to 60/48. Telehealth was contacted. She was given IV fluid bolus without any improvement. She was started on Levophed through a peripheral IV. She then had a bloody bowel movement. Her hemoglobin was checked, and it was stable around 10.2. She had another bloody bowel movement this morning. She continues to have an anuria. This morning, her creatinine has worsened to 2.8. She has only put out 50 cc of urine in the last 24 hours. Friedman was placed and only 10-20 cc of urine was seen. She is starting to show signs of electrolyte disturbances including high in gap metabolic acidosis, with pH is 7.082, as well as a hyperkalemia of 5.2. At this point, she will require dialysis, and now with her hypotension, this will likely need to be CRRT. Patient's daughter and son were spoken with over the phone first thing in the morning. First, we discussed the need for central line placement. She is on increasing amounts of Levophed through a peripheral line, and we need to switch this to a central line as soon as possible. The procedure was explained, including the risks and benefits of it. Moreover, the need for transfer for likely CRRT versus hemodialysis was also explained to the patient's children with the anuria and electrolyte disturbances, worsening mental status (likely uremia related), etc. [facility] was called, and signout was completed with the intensivisit regional recruiter in preparation for this possible transfer. The two daughters, and the son then opted to make the patient comfort care. Previous records were noted, and there was much discussion about hospice care, including when the patient was mentally sound. However, there were some insurance issues, and she was not eligible for hospice at that time. They felt very comfortable with this decision, and understood what hospice care meant, meaning that there would be no dialysis, no vasopressor use, and we would withdraw aggressive medical care. We would then shift to focus on making sure the patient is comfortable, pain-free, anxiety free. Hospice was called, Dr. Lopez was also spoken with. She will come see the patient to see if as well. The above plan was relayed to the nurse. Current Medications Current Medications Current Medications: Current Medications Generic Name Dose Route Start Last Admin Trade Name Freq PRN Reason Stop Dose Admin Acetaminophen 650 mg 09/06/24 10:45 09/06/24 16:24 Acetaminophen 325 Mg Tablet PO 650 mg Q4HR PRN Administration Pain 1 to 4, or Fever Lactated Ringer's 1,000 mls @ 75 mls/hr 09/08/24 08:00 09/10/24 01:59 Lr IV 75 mls/hr .[id number] LENKA Administration Lorazepam 1 mg 09/10/24 10:01 Lorazepam 2 Mg/Ml Vial SUBQ Q6H PRN Anxiety/Agitation Midodrine 10 mg 09/09/24 23:43 Midodrine 10 Mg Tablet PO 09/10/24 23:42 ONCE PRN SBP<90 s/p bolus Morphine Sulfate 2 mg 09/10/24 10:01 09/10/24 10:10 Morphine 2 Mg/Ml Carpuject IVP 2 mg Q2HR PRN Administration Severe Pain (Level 7-10)/ SOA Ondansetron HCl 4 mg 09/07/24 17:43 09/09/24 18:57 Ondansetron 4 Mg/2 Ml Vial IVP 4 mg Q4HR PRN Administration Nausea / Vomiting Prochlorperazine Edisylate 10 mg 09/07/24 22:38 09/09/24 14:44 Prochlorperazine 10 Mg/2 Ml Vial IVP 10 mg Q6HR PRN Administration Nausea / Vomiting Sodium Chloride 10 ml 09/06/24 17:00 09/10/24 08:11 Sodium Chloride Flush 0.9% 10 Ml Syringe IVP 10 ml 0100,0900,1700 LENKA Administration Sodium Chloride 10 ml 09/06/24 10:45 Sodium Chloride Flush 0.9% 10 Ml Syringe IVP PRN PRN NEEDED PER PROVIDER ORDERS Sterile Water 10 ml 09/07/24 09:00 09/10/24 08:14 Water For Injection,Sterile 10 Ml Vial MC 10 ml DAILY LENKA Administration Objective Vital Signs/Intake & Output Reviewed Vital Signs: Yes Vital Signs: Vital Signs x48h Temp Pulse Resp BP Pulse Ox O2 Flow Rate 09/10/24 09:00 95.2 F L 109 H 22 157/85 H 89 L 10 09/10/24 08:46 95.2 F L 91 H 22 60/48 L 94 10 09/10/24 08:00 94.6 F L 93 H 22 70/54 L 96 10 09/10/24 07:01 91 H 28 H 100/75 97 09/10/24 06:50 114/74 09/10/24 06:45 105/78 09/10/24 06:40 106/65 09/10/24 06:35 93/67 09/10/24 06:30 96/67 09/10/24 06:25 103/79 09/10/24 06:20 136/94 H 09/10/24 06:15 119/88 09/10/24 06:10 129/77 09/10/24 06:00 98 H 21 121/96 H 93 10 09/10/24 05:01 104 H 24 103/61 10 09/10/24 04:00 98.2 F 106 H 28 H 92/55 L 10 09/10/24 03:00 84 22 109/85 10 09/10/24 02:31 83 26 H 108/71 10 09/10/24 02:22 78 24 99/62 10 Intake & Output: Intake & Output 09/08/24 09/09/24 09/10/24 09/11/24 05:59 05:59 05:59 05:59 Intake Total 3319 / 3319 1418 / 1418 2784 / 2784 301 / 301 Output Total 75 / 75 250 / 250 50 / 50 Balance 3244 / 3244 1168 / 1168 2734 / 2734 291 / 291 Weight (kg) 65 kg 66 kg 69 kg 72 kg Objective General Appearance: positive Moderate distress, Anxious and Lethargic Eyes Bilateral: positive Normal inspection, PERRL and EOMI ENT: positive ENT inspection nml, Pharynx nml and No signs of dehydration Neck: positive Nml inspection, Thyroid nml and No JVD Respiratory: positive Chest non-tender, No respiratory distress, Breath sounds nml, Wheezes (expiratory, BERNARDA) and Rales (bibasilar); negative Rhonchi Cardiovascular: positive No murmur, Irregularly irregular and Tachycardia Abdomen: positive Non-tender, No organomegaly, Nml bowel sounds and No distention; negative Tenderness, Guarding, Rebound or Hepatomegaly Rectal: positive Bloody stool Back: positive Nml inspection; negative CVA tenderness (R) or CVA tenderness (L) Skin: positive Color nml and Skin rash (RLE - erythema in the right upper thigh, improving; erythema noted in calf as well, no fluctuence or purulence noted; LLE with open ulceration, no pus noted) Extremities: positive Non-tender, Full ROM, Nml appearance and No pedal edema; negative Calf tenderness Neurologic/Psychiatric: positive Disoriented to person, Disoriented to place and Disoriented to time Lab Results 09/10/24 08:18 09/10/24 06:11 Other Labs: Lab Results x24hrs 09/10/24 09/10/24 09/10/24 Range/Units 08:37 08:18 06:11 WBC (4.8-10.8) x10^3/uL RBC (4.20-5.40) 10^6/uL Hgb 9.8 L (12.0-16.0) g/dL Hct 38.9 (37.0-47.0) % MCV (81.0-99.0) fL MCH (27.0-31.0) pg MCHC (32.0-36.0) g/dL RDW (12.0-15.0) % Plt Count (130-450) 10^3/uL VBG pH (7.31-7.41) Ionized Calcium (1.15-1.33) mmol/L Sodium 142 (135-145) mmol/L Potassium 5.2 H (3.5-4.5) mmol/L Chloride 108 (101-111) mmol/L Carbon Dioxide 14 L (21-32) mmol/L Anion Gap 20.0 H (6-13) BUN 58 H (6-20) mg/dL Creatinine 2.8 H (0.6-1.3) mg/dL Estimated GFR (MDRD) 16 L (>89) Glucose 61 L (74-104) mg/dL POC Whole Bld Glucose 38 (70-100) mg/dL Calcium 9.7 (8.5-10.3) mg/dL Phosphorus 6.7 H (2.5-5.0) mg/dL Magnesium 2.4 H (1.7-2.3) mg/dL 09/10/24 Range/Units 05:49 WBC 13.6 H (4.8-10.8) x10^3/uL RBC 5.36 (4.20-5.40) 10^6/uL Hgb 10.2 L (12.0-16.0) g/dL Hct 40.9 (37.0-47.0) % MCV 76.3 L (81.0-99.0) fL MCH 19.0 L (27.0-31.0) pg MCHC 24.9 L (32.0-36.0) g/dL RDW 22.7 H (12.0-15.0) % Plt Count 175 (130-450) 10^3/uL VBG pH 7.082 L* (7.31-7.41) Ionized Calcium 1.10 L (1.15-1.33) mmol/L Sodium (135-145) mmol/L Potassium (3.5-4.5) mmol/L Chloride (101-111) mmol/L Carbon Dioxide (21-32) mmol/L Anion Gap (6-13) BUN (6-20) mg/dL Creatinine (0.6-1.3) mg/dL Estimated GFR (MDRD) (>89) Glucose (74-104) mg/dL POC Whole Bld Glucose (70-100) mg/dL Calcium (8.5-10.3) mg/dL Phosphorus (2.5-5.0) mg/dL Magnesium (1.7-2.3) mg/dL Diagnostic Imaging Diagnostic Imaging Results: positive Final report reviewed Sepsis Event Note (H) Evaluation Current Stage of Sepsis: Severe sepsis Possible source of Sepsis: positive Pulmonary, Genitourinary and Skin/soft tissue Sepsis Criteria Sepsis Criteria: Recorded Temperature greater than 38.3C or Less than 36C, Recorded Heart Rate greater than 90 bpm and WBC count greater than 12,000 or less than 4000 Assessment/Plan Problem List (1) Hospice care: Impression: Overnight, patient became hypotensive, not responsive to fluid boluses. Telehealth was contacted. She was started on Levophed through a peripheral IV. Also had two bloody bowel movements. Continues to have an anuria. This morning, her creatinine has worsened to 2.8. She has only put out 50 cc of urine in the last 24 hours. Friedman was placed and only 10-20 cc of urine was seen. She is starting to show signs of electrolyte disturbances including high in gap metabolic acidosis, with pH is 7.082, as well as a hyperkalemia of 5.2. One time nebulized albuterol, insulin, D50, sodium bicarbonate was give. At this point, she will require dialysis, and now with her hypotension, this will likely need to be CRRT. Patient's daughter and son were spoken with over the phone first thing in the morning. First, we discussed the need for central line placement. She is on increasing amounts of Levophed through a peripheral line, and we need to switch this to a central line as soon as possible. Moreover, the need for transfer for likely CRRT versus hemodialysis was also explained to the patient's children with the anuria and electrolyte disturbances, worsening mental status (likely uremia related), etc. [facility] was called, and signout was completed with the intensivisit regional recruiter in preparation for this possible transfer. The two daughters, and the son then opted to make the patient comfort care. They felt very comfortable with this decision, and understood what hospice care meant, meaning that there would be no dialysis, no vasopressor use, and we would withdraw aggressive medical care. We would then shift to focus on making sure the patient is comfortable, pain-free, anxiety free. Hospice was called, Dr. Lopez was also spoken with. She will come see the patient to see if as well. The above plan was relayed to the nurse. Morphine, ativan ordered as needed. Patient appears comfortable. (2) Bacteremia due to group B Streptococcus: Impression: Patient with blood cultures 2/2 positive for group B streptococcus. Continue Rocephin. MRSA swab negative; vancomycin discontinued. Patient has right lower extremity squamous cell carcinoma and there is erythema currently surrounding the area, she also had a cancer in her left lower extremity that was excised. This is likely the source of the sepsis (versus genitourinary source). (3) Acute kidney injury: Impression: Anuric with electrolyte disturbances, hyperkalemia and metabolic acidosis. Likely ATN due to hemodynamic changes. Creatinine worsened, Friedman placed. Needs CRRT. Discussed transfer with children. Opting for comfort care. (4) Altered mental status: Impression: Initially attributed to delirium due to extended hospital stay. Now likely metabolic due to acidosis, uremia, hypotension requiring Levophed; opting for comfort care. Qualifiers: Altered mental status type: unspecified Qualified Code(s): R41.82 - Altered mental status, unspecified (5) Sepsis: Impression: See above. Qualifiers: Sepsis acute organ dysfunction status: unspecified Sepsis type: sepsis due to unspecified organism Qualified Code(s): A41.9 - Sepsis, unspecified organism (6) Pneumonia: Impression: Chest x-ray shows possible right lower lobe consolidation. Qualifiers: Pneumonia type: due to unspecified organism Laterality: right Lung location: lower lobe of lung Qualified Code(s): J18.9 - Pneumonia, unspecified organism (7) Atrial fibrillation with RVR: Impression: Patient was given 2 pushes of IV diltiazem, and started on a IV drip. This has been down titrated since being admitted to the ICU, and is now off. Has history of diastolic heart failure so will try to avoid CCB. Started on oral metopolol with good control of heart rate. Will continue her Eliquis. (8) Lactic acidosis: Impression: Resolved. Secondary to hypoperfusion due to above. (9) Non-pressure chronic ulcer of other part of left lower leg with fat layer exposed: Impression: Continue localized wound care, continue to monitor. (10) Hypothyroidism (acquired): Impression: Continue levothyroxine 25 mcg as per home dose. (11) Diastolic heart failure: Impression: Hold home Lasix. Patient appears dehydrated at this time. Gentle IVF rehydration with small boluses. Qualifiers: Heart failure chronicity: unspecified Qualified Code(s): I50.30 - Unspecified diastolic (congestive) heart failure
[2024-09-10] MEDS ORDERED: fentaNYL 100 MCG/2 ML VIAL ONE (11:09)
[2024-09-10] MEDS: LORazepam 2 MG/ML VIAL IVP PRN (11:15)
[2024-09-10] MEDS: fentaNYL 100 MCG/2 ML VIAL IVP STA (11:18)
[2024-09-10] MEDS: fentaNYL 100 MCG/2 ML VIAL IVP PRN (11:49)
--- NOTE | 2024-09-10 12:16 | Discharge Summary ---
"Discharge Summary Admit Date: 09/06/24 Discharge Date: 09/10/24 Discharging Provider: Dr. 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 Patient is not able to fully give history due to lethargy, and altered mentation. ER documentation reviewedER physician spoke with daughter who stated that since , patient has had intermittent nausea, vomiting. Spoke with both daughters - Alexia ([phone]) and Aria ([phone]) in a conference call to elicit further history: She lives with Aria - She had one episode of diarrhea on Tuesday, for which Aria gave her Imodium, which effectively resolved the issue. She then had some weakness over the weekend resulting in a fall. This was witnessed. She did not hit her head. Yesterday, she was doing a lot better. She had a few glasses of wine. She took a nap, and woke up with confusion, was very emotionally labile. She had one episode of emesis, which her daughter describes as large volume with no blood in it. She had no more episodes of diarrhea, nausea, or vomiting after this. Earlier this morning, around 4 AM, her daughter awoke to her calling for her - she said she was shaking, cold, had chills. At this time, EMS was called. Once patient got here, she was found to be in A-fib with RVR, with heart rate as high as 191. Her blood pressure was 140s over 80s, she is saturating 90 L, and was placed on 5 L. She received 2 pushes of Cardizem, and then was started on a Cardizem drip. Lab work was significant for a leukocytosis of 21.3, hemoglobin, around her baseline of 9.7, creatinine with mild elevation of 1.4, with baseline around 1-1.3. Her lactic acid was elevated at 7.5. After IV fluid resuscitation of 2 L, did decrease to 4.7. Her bilirubin was elevated at 1.8. Her urine did show WBCs, as well as moderate bacteria. Respiratory viral panel was negative. Imaging, including his chest x-ray showed pulmonary vascular congestion, with right lower lobe infiltrate. She was admitted to the ICU for further workup and treatment. 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 Patient is not able to fully give history due to lethargy, and altered mentation. ER documentation reviewedER physician spoke with daughter who stated that since Thanksgiving, patient has had intermittent nausea, vomiting. Once patient got here, she was found to be in A-fib with RVR, with heart rate as high as 191. Her blood pressure was 140s over 80s, she is saturating 90 L, and was placed on 5 L. She received 2 pushes of Cardizem, and then was started on a Cardizem drip. Lab work was significant for a leukocytosis of 21.3, hemoglobin, around her baseline of 9.7, creatinine with mild elevation of 1.4, with baseline around 1-1.3. Her lactic acid was elevated at 7.5. After IV fluid resuscitation of 2 L, did decrease to 4.7. Her bilirubin was elevated at 1.8. Her urine did show WBCs, as well as moderate bacteria. Respiratory viral panel was negative. Imaging, including his chest x-ray showed pulmonary vascular congestion, with right lower lobe infiltrate. She was admitted to the ICU for further workup and treatment. She was found to be bacteremic with group B strep. Her urine output continued to decrease, her kidney function worsened. Overnight, patient worsened. Her blood pressure decreased to 60/48. Telehealth was contacted. She was given IV fluid bolus without any improvement. She was started on Levophed through a peripheral IV. She then had a bloody bowel movement. Her hemoglobin was checked, and it was stable around 10.2. She had another bloody bowel movement this morning. She continued to have an anuria. This morning, her creatinine had worsened to 2.8. She has only put out 50 cc of urine in the last 24 hours. Friedman was placed and only 10-20 cc of urine was seen. She was starting to show signs of electrolyte disturbances including high in gap metabolic acidosis, with pH is 7.082, as well as a hyperkalemia of 5.2. At that point, she would require dialysis, and now with her hypotension, this will likely need to be CRRT. Patient's daughter and son were spoken with over the phone first thing in the morning. First, we discussed the need for central line placement. She is on increasing amounts of Levophed through a peripheral line, and we need to switch this to a central line as soon as possible. The procedure was explained, including the risks and benefits of it. Moreover, the need for transfer for likely CRRT versus hemodialysis was also explained to the patient's children with the anuria and electrolyte disturbances, worsening mental status (likely uremia related), etc. [facility] was called, and signout was completed with the intensivisit front office director in preparation for this possible transfer. The two daughters, and the son then opted to make the patient comfort care. Previous records were noted, and there was much discussion about hospice care, including when the patient was mentally sound. However, there were some insurance issues, and she was not eligible for hospice at that time. They felt very comfortable with this decision, and understood what hospice care meant, meaning that there would be no dialysis, no vasopressor use, and we would withdraw aggressive medical care. We would then shift to focus on making sure the patient is comfortable, pain-free, anxiety free. Hospice was called, Dr. Lopez was also spoken with. She will come see the patient to see if as well. She switched her to fentanyl from the morphine. The above plan was relayed to the nurse. Patient was made comfortable, and passed peacefully with family at beside. ALLERGIES Allergies Allergy/AdvReac Type Severity Reaction Status Date / Time strawberry Allergy Unknown Verified 09/06/24 06:45 venom-honey bee (bee venom Allergy swelling Verified 09/06/24 06:45 (honey bee)) MEDICATIONS Ambulatory Orders Medication Instructions Recorded Confirmed apixaban 5 mg tablet (Eliquis) 5 mg ORAL BID chronic atrial fib 12/13/23 09/06/24 #60 tabs levothyroxine 25 mcg tablet 100 mcg PO QDAC 04/25/24 09/06/24 potassium chloride 20 mEq 20 meq PO DAILY #10 tabs 06/21/24 09/06/24 tablet,extended release(part/cryst) (Klor-Con M) clonidine HCl 0.1 mg tablet 0.1 mg PO QPM HTN 09/06/24 09/06/24 furosemide 40 mg tablet 20 mg PO DAILY 09/06/24 09/06/24 multivitamin (Daily Multi-Vitamin 1 tab PO DAILY 09/06/24 09/06/24 tablet) pantoprazole 40 mg tablet,delayed 40 mg PO DAILY 09/06/24 09/06/24 release PHYSICAL EXAM AT DISCHARGE Physical Exam Other/Comments: Patient . Not responsive to verbal or physical stimuli. Chest was auscultated, no breath sounds or heart sounds were heard. Corneal reflex was absent. Pulse was absent. Time of was called at 12:07 PM. LABS 09/10/24 08:18 09/10/24 06:11 DIAGNOSTIC IMAGING Diagnostic Imaging Results: Final report reviewed QUALITY (Female Hip Fx Only) Was patient sent home on osteoporosis medication?: No FOLLOW UP Follow Up: Patient . TIME SPENT Time Spent in Discharge (Minutes): 25 Discharge Plan Discharge Patient Disposition: 20 Print Language: Montenegrin Date/Time: 09/10/24 12:07"
--- NOTE | 2024-09-10 12:30 | CONSULTATION NOTE ---
Hospice Consultation ([facility]) Hospice Consultation Hospice Consultation Note: Requesting provider: Hospitalist team: Dr. Rangel 84 yr old female w/SCCA R malleolus w/Bilat inguinal adenopathy, CHF, A fib who was admitted w/A fib w/RVR, Grp B Strep sepsis, and MATIAS. She developed anuric renal failure over the past 3 days and has required levophed for hemodynamic instability. Overnight, she developed bloody stool (remote hx of colon CA). Today, there were plans in place for placement of a central line and co nsideration of transfer to a higher level of care for consideration of dialysis. However, family requested to transition to comfort care. PMH: Hypertension, High cholesterol, Peripheral Vascular Disease, Atrial fibrillation, hx of low-grade adenocarcinoma of the colon Fam Hx: Mo - from CVA Fa- from complications of DM2 Social Hx: Used to drink 1-2 glasses of wine weekly. Remote smoker. PE: Gen: Elderly female, unresponsive, agitated, appears uncomfortable HEENT: NC, face symmetric, dry MMs Chest: Diminished but clear CV: RRR, no M/R/G Abd: soft, NT/ND, BT hypoactive Extr: warm, chronic venous stasis changes noted, no edema Skin: warm, dry Labs: Cr: 2.8, GFR 16, K 5.2 Assessment: 1. Anuric Renal Failure 2. GBS sepsis 3. Acute metabolic encephalopathy, likely d/t uremia Will dc morphine d/t risk of opioid neurotoxicity (OIN). She did recieve morphine 40 minutes prior to my assessment and family notes that within 10 minutes of receiving it, pt became more agitated and appeared more comfortable. Could be early indication of OIN. Stat dose of fentanyl 25 mcg IV ordered and pt responded well. Plan to continue PRN for pain. Pt responded well to lorazepam, but will add haldol as well for agitation, as son notes she did quite well after receiving a dose of haldol last evening. She was weaned from levophed approximately 20 minutes prior to my assessment. Anticipate prognosis of less than 1 hour. Encouraged RN to contact me for sxs/signs of discomfort. Left my direct # at bedside.
[2024-09-10] MEDS: CONCENTRATED ALBUTEROL NEB 2.5 MG/0.5 ML INH STA (13:19)
== END 2024-09-10 12:07 | disposition expired | DRG 871 ==
LOC: ED 06:37 → ICU 09:58
PROVIDERS: ADMIT Internal Medicine; ATTEND Internal Medicine
DX: E87.5 Hyperkalemia; R65.20 Severe sepsis without septic shock; N17.9 Acute kidney failure, unspecified; I48.91 Unspecified atrial fibrillation; N39.0 Urinary tract infection, site not specified; C41.9 Malignant neoplasm of bone and articular cartilage, unspecified; R59.0 Localized enlarged lymph nodes; J18.9 Pneumonia, unspecified organism; Z87.891 Personal history of nicotine dependence; I73.9 Peripheral vascular disease, unspecified; I50.30 Unspecified diastolic (congestive) heart failure; R34 Anuria and oliguria; Z66 Do not resuscitate; E87.20 Acidosis, unspecified; Z85.038 Personal history of other malignant neoplasm of large intestine; R45.1 Restlessness and agitation; Z51.5 Encounter for palliative care; E03.9 Hypothyroidism, unspecified; E78.00 Pure hypercholesterolemia, unspecified; A41.9 Sepsis, unspecified organism; R41.0 Disorientation, unspecified; I11.0 Hypertensive heart disease with heart failure; Z91.81 History of falling; L03.115 Cellulitis of right lower limb; A40.1 Sepsis due to streptococcus, group B; L97.822 Non-pressure chronic ulcer of other part of left lower leg with fat layer exposed; G93.41 Metabolic encephalopathy; I95.9 Hypotension, unspecified